=== PATIENT | male | born 1960 ===

== ENCOUNTER 2021-05-02 16:58 | Emergency (ER) | payer SELFPAY ==
--- NOTE | ~2021-05-02 | XR_ITS ---
EXAMINATION: XR CHEST CLINICAL INFORMATION: Cough COMPARISON: None TECHNIQUE: Frontal view of the chest was obtained. FINDINGS: No significant abnormality is noted involving the heart, lungs, mediastinum, bony thorax or soft tissues. XR/XR chest 1V IMPRESSION: Unremarkable examination.
[2021-05-02 17:03] VITALS: BP 195/86; PULSE 86; RESP 18; TEMP 37.7; O2SAT 98; BMI 27.2
[2021-05-02 17:29] LABS: COVID-19 Test Negative (Negative)
--- NOTE | 2021-05-02 20:06 | ED_ITS ---
HPI - URI/Sore Throat General Chief Complaint: Upper Respiratory Symptoms Stated Complaint: chest pain Time Seen by Provider: 05/02/21 20:06 Source: patient Mode of arrival: ambulatory Limitations: no limitations History of Present Illness HPI Narrative: Patient been coughing for last 3 - 4 days congested, sore throat pain when he coughs with mucopurulent phlegm Related Data Previous Rx's Medication Instructions Recorded benzonatate 100 mg capsule 100 mg PO TID PRN #20 cap 05/02/21 (Aspen Nolasco) doxycycline hyclate 100 mg tablet 100 mg PO BID #20 tab 05/02/21 Allergies Allergy/AdvReac Type Severity Reaction Status Date / Time No Known Allergies Allergy Verified 05/02/21 17:05 Review of Systems Review of Systems: Yes all other systems are reviewed and are negative [facility] Past Medical History Medical History Diabetes HTN (hypertension) Surgical History Hx of appendectomy Social History Social History Advance Directives: No Advance Directives Information Provided: No Physical Exam Vital Signs: Vital Signs: Last Vital Signs Temp 99.9 F 05/02/21 17:03 Pulse 86 05/02/21 17:03 Resp 18 05/02/21 17:03 BP 195/86 H 05/02/21 17:03 Pulse Ox 98 05/02/21 17:03 Body Mass Index 27.2 Appearance: Alert. Oriented X3. No acute distress. Dry cough Eyes: No pallor/ icterus ENT: Pharynx normal. Oral Mucosa moist Neck: Normal inspection. Neck supple. CVS: Normal heart rate and rhythm. Pulses normal. Respiratory: No respiratory distress. Equal air entry bilateral, no wheezing/rales/rhonchi Abdomen: Soft and nontender. Bowel sounds are present, no mass palpable, no CVA tenderness Skin: Skin warm and dry. Normal skin color. Normal skin turgor. Extremities: No lower extremity edema. No calf tenderness Neuro: Oriented X 3. MDM - URI/Sore Throat MDM Narrative Medical decision making narrative: Patient COVID negative chest x-ray negative likely bronchitis discharge patient home on doxycycline Lab Data Attestation: I reviewed the patient's lab results. Labs: Lab Results 05/02/21 Range/Units 17:07 COVID-19 (JIMBO) Negative (Negative) COVID-19 Clin Com See Note Discharge Plan Discharge Clinical Impression: Bronchitis Patient Disposition: Home, Self-Care Instructions: Acute Bronchitis (ED) Additional Instructions: Take antibiotic as advised Follow with PCP if not better Prescriptions: New doxycycline hyclate 100 mg tablet 100 mg PO BID Qty: 20 RF: 0 benzonatate [Tessalon Perles] 100 mg capsule 100 mg PO TID PRN (Reason: cough) Qty: 20 RF: 0 Print Language: Telugu
== END 2021-05-02 20:45 | disposition home or self-care (01) ==
PROVIDERS: Emergency Provider Internal Medicine
DX: J40 Bronchitis, not specified as acute or chronic (principal); R07.9 Chest pain, unspecified; R05 Cough; Z79.899 Other long term (current) drug therapy; Z20.822 Contact with and (suspected) exposure to COVID-19
CPT/HCPCS: 36415; 71045; 87635; 99283

== ENCOUNTER 2021-07-06 17:21 | Emergency (ER) | payer SELFPAY ==
--- NOTE | ~2021-07-06 | XR_ITS ---
EXAMINATION: XR TOES, RIGHT CLINICAL INFORMATION: Right great toe pain, redness. Status post injury. COMPARISON: None TECHNIQUE: 3 views of the right toes were obtained. FINDINGS: There is a subtle band of lucency and sclerosis at the base of the great toe which is only seen on the oblique view and raise the possibility of a small nondisplaced fracture. No evidence of osteolysis osteomyelitis. 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 Calcific atherosclerosis is noted. XR/XR toe RT min 2V IMPRESSION: Possible nondisplaced transverse fracture through the great toe proximal phalangeal base, only seen on one image. Associated soft tissue swelling. No evidence of osteomyelitis.
[2021-07-06 18:09] VITALS: BP 206/82; PULSE 77; RESP 16; TEMP 36.5; O2SAT 98; BMI 25.1
--- NOTE | 2021-07-06 18:39 | ED_ITS ---
HPI - Extremity Injury (Lower) General Chief Complaint: Extremity Problem Stated Complaint: foot pain Time Seen by Provider: 07/06/21 18:27 Source: patient Mode of arrival: ambulatory Limitations: no limitations History of Present Illness HPI Narrative: 61-year-old male who is Pakistani-speaking who has a past medical history of hypertension diabetes who does not take any medications for per his own choice per patient presenting to the ED with complaints of right great toe pain/redness for the past 2 days worse today after he banged it on something although he did not feel it therefore he is unsure what he actually being that on. Although due to the redness and the pain he came here for further evaluation and treatment. Reports he does not take his blood sugars and he does not take any medications and this is his own choice. He denies any other symptoms complaints or concerns or injuries at this time. MD complaint: foot injury (Right great toe pain/redness) Onset (ago): day(s) (Two days) Injury: Right: toes (Great toe) Type of Injury: unknown Place: home Severity: moderate Relieving factors: nothing Exacerbating factors: palpation Context: direct blow Associated symptoms: swelling and ambulatory Other symptoms: none Related Data Previous Rx's Medication Instructions Recorded benzonatate 100 mg capsule 100 mg PO TID PRN #20 cap 05/02/21 (Aspen Nolasco) doxycycline hyclate 100 mg tablet 100 mg PO BID #20 tab 05/02/21 alcohol swabs (Alcohol Wipes) 1 pad TOPICAL Q6H #200 ea 07/06/21 blood sugar diagnostic (Freestyle #50 ea 07/06/21 [employer]) blood-glucose meter (Freestyle #1 ea 07/06/21 [employer]) cephalexin 500 mg capsule 500 mg PO Q6H 10 Days #40 cap 07/06/21 doxycycline monohydrate 100 mg 100 mg PO BID 10 Days #20 cap 07/06/21 capsule lancets 28 gauge (FreeStyle #100 ea 07/06/21 Lancets) lisinopril 10 mg tablet 10 mg PO DAILY #30 tab 07/06/21 metformin 500 mg tablet 500 mg PO BID #60 tab 07/06/21 tramadol 50 mg tablet 50 mg PO Q8H PRN #14 tab 07/06/21 Allergies Allergy/AdvReac Type Severity Reaction Status Date / Time No Known Allergies Allergy Verified 05/02/21 17:05 Review of Systems Review of Systems: Constitutional : No Weight loss, No Fever, No Chills, No Night Sweats, No Fatigue, No Malaise ENT/Mouth : No Hearing loss, No Ear Pain, No Nasal Congestion, No Sinus Pain, No Hoarseness, No sore throat, No Rhinorrhea, No Swallowing Difficulty Eyes: No Eye Pain, No Swelling, No Redness, No Foreign Body, No Discharge, No Vision Changes Cardiovascular : No Chest Pain, No SOB, No Dyspnea on Exertion, No Orthopnea, No Edema, No Palpitations Respiratory : No Cough, No Sputum, No Wheezing, No Smoke Exposure, No Dyspnea Gastrointestinal : No Nausea, No Vomiting, No Diarrhea, No Constipation, No abdominal Pain, No Hematochezia, No Melena Genitourinary : no irregular bleeding, No Dysuria, No Urinary Frequency, No Hematuria, No Urinary Incontinence, No Urgency, No Flank Pain, No Urinary Flow Changes, No Hesitancy Musculoskeletal : + joint pain/surrounding erythema, No Myalgias, No Joint Swelling Skin : No Skin Lesions, No rash Neuro : No Weakness, No Numbness, No Paresthesias, No Loss of Consciousness, No Dizziness, No Headache Psych : No Anxiety/Panic, No Depression, No SI/HI/AH/VH, No Social Issues, Heme/Lymph: No Bruising, No Bleeding,No Lymphadenopathy Endocrine : No Polyuria, No Polydipsia, No Temperature Intolerance Yes all other systems are reviewed and are negative PMFSH Past Medical History Attestation statement: The following information was validated with the patient. Medical History Diabetes HTN (hypertension) Surgical History Hx of appendectomy Social History Social History Advance Directives: No Advance Directives Information Provided: Yes Physical Exam Vital Signs: Vital Signs: Last Vital Signs Temp 97.7 F 07/06/21 18:09 Pulse 71 07/06/21 19:58 Resp 16 07/06/21 18:09 BP 191/89 H 07/06/21 19:58 Pulse Ox 98 07/06/21 18:09 Body Mass Index 25.1 vital signs have been reviewed as normal and appeared to be correct. Blood pressure hypertensive 206/82 Heart rate normal. Respiration rate normal. Temperature normal. Oxygen saturation normal. Appearance: Alert. Oriented X3. No acute distress. Head: Normal external exam. Normocephalic. Atraumatic. Eyes: PERRLA. EOMI. Conjunctiva and sclera normal. Eyelids normal. ENT: Pharynx normal. Uvula midline. Moist mucous membranes. Neck: Normal inspection. Neck supple. FROM. CVS: Normal heart rate and rhythm. Respiratory: No respiratory distress. Painless inspiration. Skin: Skin warm and dry. Normal skin color. Normal skin turgor. No rashes/lesions/lacerations noted. Extremities: To right great toe at the distal aspect surrounding and the nail patient has moderate tenderness to palpation with surrounding erythema/warmth to touch consistent with cellulitic infection. No purulent drainage/streaking/induration/fluctuance noted on my exam at this time. No calf tenderness is noted. No lower extremity edema. Otherwise all other Extremities exhibit normal range of motion and nontender. Neuro: Oriented X 3. No motor deficit. No sensory deficit. Reflexes normal. Normal steady gait. No focal neuro deficits noted. Vascular: + radial pulses/+ 2 distal pedal pulses/+2 dorsalis pedis b/l. Normal cap refill. No cyanosis noted to upper extremity nails and lower extremity toes nails. Course Course Course Narrative: 18:43 - 61-year-old male who is Pakistani-speaking who has a past medical history of hypertension diabetes who does not take any medications for per his own choice per patient presenting to the ED with complaints of right great toe pain/redness for the past 2 days worse today after he banged it on something although he did not feel it therefore he is unsure what he actually being that on. Although due to the redness and the pain he came here for further evaluation and treatment. Reports he does not take his blood sugars and he does not take any medications and this is his own choice. He denies any other symptoms complaints or concerns or injuries at this time. On exam patient noted to have a cellulitic infection. No abscess noted at this time. No streaking. Will obtain an x-ray and a POC if POC is elevated will need to obtain basic labs and will start the patient on metformin and lisinopril due to patient's blood pressure is also elevated and he is not taking any medications at this time per his own choice will try to convince in that it is very important to take these medications. Otherwise patient denies any cardiac- related complaints or any other symptoms complaints or concerns at this time. Will re-evaluate. Reevaluation(s) Reevaluation #1: - labs returned patient's white blood cell count 4000. - Patient mild anemia with a H&H of 12.4/36.0 although he denies any black or bloody stools. - anion gap 9. - BUN 6. - POC 244 - otherwise all other labs are within normal limits. - at this time will start the patient on 500 mg of metformin and 10 mg of lisinopril for his diabetes and high blood pressure that is uncontrolled at this time. - still waiting right great toe x-ray will also start on antibiotics for cellulitic infection. 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 Time: 19:34 Reevaluation #2: - x-ray of right great toe revealed no evidence of osteomyelitis although possible nondisplaced transverse fracture through the great toe proximal phalangeal base only seen on 1 image with associated soft tissue swelling otherwise no other acute processes. - therefore I placed the patient in a postop shoe. Will treat symptomatic and refer to ortho. I also sent the patient home with lisinopril 10 mg daily and metformin 500 mg daily for his uncontrolled diabetes and hypertension. I also sent a glucose monitor/strips alcohol wipes and glucose injections so he can check his glucose daily. I also instructed him to follow-up with a primary care provider I provided him a list with multiple primary providers and to return if any new or worsening symptoms. Patient understands agrees with this plan. Time: 20:01 MDM - Extremity Injury (Lower) Medical Records Attestation: I reviewed the patient's medical records. Lab Data Attestation: I reviewed the patient's lab results. Result diagrams: 07/06/21 18:51 07/06/21 18:51 Labs: Lab Results 07/06/21 07/06/21 07/06/21 Range/Units 18:42 18:51 18:51 WBC 4.7 L (4.8-10.8) X10*3/uL RBC 4.38 L (4.60-5.80) X10*6/uL Hgb 12.4 L (14.0-18.0) g/dl Hct 36.0 L (42-52) % MCV 82.2 (80-98) fL MCH 28.3 (27.0-33.0) pg MCHC 34.4 (31.0-36.0) g/dl RDW 13.1 (11.0-16.0) % Plt Count 180 (160-400) X10*3/uL MPV 9.9 (9.4-12.4) fL Immature Gran % (Auto) 0.2 (0.0-0.4) % Neut % (Auto) 55.2 (45-73) % Lymph % (Auto) 27.9 (20-40) % [place] % (Auto) 14.4 H (2-11) % Eos % (Auto) 2.3 (0-4) % Baso % (Auto) 0.0 (0-2) % Lymph # (Auto) 1.3 (1.2-4.9) X10*3/uL [place] # (Auto) 0.7 (0.1-1.2) X10*3/uL Eos # (Auto) 0.1 (0.0-0.4) X10*3/uL Baso # (Auto) 0.0 (0.0-0.2) X10*3/uL Abs Immat Gran (auto) 0.01 (0.00-0.03) X10*3/uL Absolute Neuts (auto) 2.6 (2.0-8.3) X10*3/uL Absolute Nucleated RBC 0.000 (0.0-0.012) X10*3/uL Nucleated RBC % (auto) 0.0 (0.0-0.2) /100WBC Sodium 140 (135-145) mmol/L Potassium 4.2 (3.3-5.1) mmol/L Chloride 106 (96-108) mmol/L Carbon Dioxide 29 (22-29) mmol/L Anion Gap 9 L (12-20) BUN 6 L (9-16) mg/dL Creatinine 1.22 (0.5-1.4) mg/dL Estim Creat Clear Calc 50.5 Estimated GFR > 60 POC Glucose 244 H (60-115) mg/dL Random Glucose 265 H (60-115) mg/dL Calcium 9.0 (8.4-10.2) mg/dL Magnesium 1.9 (1.6-2.6) mg/dL Total Bilirubin 0.5 (0.0-1.0) mg/dL AST 14 (5-37) U/L ALT 15 (0-40) U/L Alkaline Phosphatase 85 (39-117) U/L Total Protein 6.9 (6.5-8.0) g/dL Albumin 4.0 (3.5-5.0) g/dL Imaging Data Right great toe x-ray: Attestation: I personally reviewed and interpreted this imaging study as follows: Radiologist's impression: FINDINGS: There is a subtle band of lucency and sclerosis at the base of the great toe which is only seen on the oblique view and raise the possibility of a small nondisplaced fracture. No evidence of osteolysis osteomyelitis. 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 Calcific atherosclerosis is noted. XR/XR toe RT min 2V IMPRESSION: Possible nondisplaced transverse fracture through the great toe proximal phalangeal base, only seen on one image. Associated soft tissue swelling. No evidence of osteomyelitis. Procedures Orthopedic Splinting/Casting Injury #1: Side: right Lower Extremity Injury Location: toe Lower Extremity Immobilizer: post-op shoe Critical Care Time Critical Care Time Critical Care Time: Yes Total Critical Care Time: 60 Attestation: I personally attest to this time spent taking care of the patient Discharge Plan Discharge Clinical Impression: History of uncontrolled hypertension, Uncontrolled diabetes mellitus, Cellulitis, Acute hyperglycemia, Closed fracture of right great toe Patient Disposition: Home, Self-Care Instructions: Toe Fracture (ED), Cellulitis (ED), Heart Healthy Diet (ED), Hypertension (ED), How to Check your Blood Sugar (ED), Type 2 Diabetes Management for Adults (ED) Prescriptions: New cephalexin 500 mg capsule 500 mg PO Q6H 10 Days Qty: 40 RF: 0 doxycycline monohydrate 100 mg capsule 100 mg PO BID 10 Days Qty: 20 RF: 0 lisinopril 10 mg tablet 10 mg PO DAILY Qty: 30 RF: 1 metformin 500 mg tablet 500 mg PO BID Qty: 60 RF: 1 (DME) blood-glucose meter [Freestyle [employer]] Misc See Rx Instructions .Route Qty: 1 RF: 2 (DME) Freestyle [employer] Strip See Rx Instructions .Route Qty: 50 RF: 2 (DME) lancets [FreeStyle Lancets] 28 gauge misc See Rx Instructions .Route Qty: 100 RF: 2 alcohol swabs [Alcohol Wipes] Pads, Medicated 1 pad topical Q6H Qty: 200 RF: 1 tramadol 50 mg tablet 50 mg PO Q8H PRN (Reason: pain) Qty: 14 RF: 0 No Action doxycycline hyclate 100 mg tablet 100 mg PO BID Qty: 20 RF: 0 benzonatate [Tessalon Perles] 100 mg capsule 100 mg PO TID PRN (Reason: cough) Qty: 20 RF: 0 Referrals: Marco Freeman MD [Physician] - 2 days (Call tomorrow to make a follow-up appointment within 1-2 weeks) Physician,Forrest Lang [Primary Care Provider] - 2 days (your pcp) Print Language: Pakistani
[2021-07-06 18:48] LABS: Glucose, Whole Blood 244 mg/dL (60-115)
[2021-07-06 18:57] LABS: Eosinophils Absolute Auto 0.1 X10*3/uL (0.0-0.4); Eosinophils Percent Auto 2.3 % (0-4); Hemoglobin 12.4 g/dl (14.0-18.0); Imm Gran Abs Auto 0.01 X10*3/uL (0.00-0.03); Imm Gran Pct Auto 0.2 % (0.0-0.4); Lymphocytes Absolute Auto 1.3 X10*3/uL (1.2-4.9); Lymphocytes Percent Auto 27.9 % (20-40); MANUAL DIFF FLAG NO; Mean Corpuscular HGB Conc 34.4 g/dl (31.0-36.0); Mean Corpuscular Hemoglobin 28.3 pg (27.0-33.0); Mean Corpuscular Volume 82.2 fL (80-98); Mean Platelet Volume 9.9 fL (9.4-12.4); Monocytes Absolute Auto 0.7 X10*3/uL (0.1-1.2); Monocytes Percent Auto 14.4 % (2-11); Neutrophils Absolute Auto 2.6 X10*3/uL (2.0-8.3); Neutrophils Percent Auto 55.2 % (45-73); Platelet Count 180 X10*3/uL (160-400); Red Blood Count 4.38 X10*6/uL (4.60-5.80); Red Cell Distribution Width 13.1 % (11.0-16.0); White Blood Count 4.7 X10*3/uL (4.8-10.8)
[2021-07-06 19:20] LABS: Alanine Aminotransferase 15 U/L (0-40); Alkaline Phosphatase 85 U/L (39-117); Anion Gap 9 (12-20); Aspartate Amino Transferase 14 U/L (5-37); Bilirubin Total 0.5 mg/dL (0.0-1.0); Blood Urea Nitrogen 6 mg/dL (9-16); Carbon Dioxide 29 mmol/L (22-29); Chloride 106 mmol/L (96-108); Creatinine Clr Calc Pharmacy 50.5; Estimated Glomerular Filt Rate > 60; Glucose Random 265 mg/dL (60-115); Magnesium 1.9 mg/dL (1.6-2.6); Potassium 4.2 mmol/L (3.3-5.1); Sodium 140 mmol/L (135-145); Total Protein 6.9 g/dL (6.5-8.0)
[2021-07-06 19:57] VITALS: BP 191/89; PULSE 71
[2021-07-06 19:58] VITALS: BP 191/89; PULSE 71
[2021-07-06] MEDS: lisinopriL 10 MG TABLET PO (19:58)
[2021-07-06] MEDS: metFORMIN HCl 500 MG TABLET PO (19:58)
[2021-07-06] MEDS: cephALEXin 500 MG CAPSULE PO (19:58)
== END 2021-07-06 20:25 | disposition home or self-care (01) ==
PROVIDERS: Physician Assistant Medical; Emergency Provider Internal Medicine
DX: L03.115 Cellulitis of right lower limb (principal); E11.65 Type 2 diabetes mellitus with hyperglycemia; I10 Essential (primary) hypertension; S92.414A Nondisplaced fracture of proximal phalanx of right great toe, initial encounter for closed fracture; X58.XXXA Exposure to other specified factors, initial encounter; Y93.9 Activity, unspecified; Y92.9 Unspecified place or not applicable; Y99.9 Unspecified external cause status
CPT/HCPCS: 36415; 73660; 80053; 82947; 83735; 85025; 99283; 99284; 99291

== ENCOUNTER 2021-12-06 11:32 | Outpatient (REF) | payer SELFPAY ==
[2021-12-06 12:26] LABS: COVID-19 Test Negative (Negative); IDNOW Serial# 08D9AD1C
== END 2021-12-06 11:33 | disposition home or self-care (01) ==
LOC: HO.LAB 11:32
PROVIDERS: Visit Provider Internal Medicine
DX: Z20.822 Contact with and (suspected) exposure to COVID-19 (principal)
CPT/HCPCS: 87635; C9803

== ENCOUNTER 2022-01-22 21:13 | Emergency (ER) | payer SELFPAY ==
--- NOTE | ~2022-01-22 | XR_ITS ---
EXAMINATION: XR CHEST CLINICAL INFORMATION: Dyspnea COMPARISON: Chest radiograph 05/02/2021 TECHNIQUE: Frontal view of the chest was obtained. FINDINGS: There is mild hypoexpansion of lungs. The exam is otherwise unremarkable with no significant abnormality is noted involving the heart, lungs, mediastinum, bony thorax or soft tissues. XR/XR chest 1V IMPRESSION: No acute intrathoracic disease
--- NOTE | 2022-01-22 21:58 | ECG_ITS ---
Test Reason : cp Blood Pressure : / mmHG Vent. Rate : 086 BPM Atrial Rate : 086 BPM P-R Int : 142 ms QRS Dur : 084 ms QT Int : 352 ms P-R-T Axes : 066 -25 053 degrees QTc Int : 421 ms Normal sinus rhythm Minimal voltage criteria for LVH, may be normal variant ( R in aVL ) Borderline ECG No previous ECGs available Referred By: Generic ED Physician Electronically Signed By:WEN HENRIQUEZ
[2022-01-22 22:13] VITALS: BP 145/79; PULSE 87; RESP 19; TEMP 36.8; O2SAT 95; BMI 24.9
[2022-01-22 22:50] LABS: MANUAL DIFF FLAG NO
[2022-01-22 22:57] LABS: Hemoglobin 12.8 g/dl (14.0-18.0); PLT CLUMP 1; Red Cell Distribution Width 13.2 % (11.0-16.0); SCAN SMEAR FLAG 1
[2022-01-22 22:59] LABS: Basophils Percent Auto 0.2 % (0-2); Eosinophils Percent Auto 0.2 % (0-4); Hematocrit 37.5 % (42.0-52.0); Imm Gran Abs Auto 0.02 X10*3/uL (0.00-0.03); Imm Gran Pct Auto 0.3 % (0.0-0.4); Lymphocytes Absolute Auto 0.4 X10*3/uL (1.2-4.9); Lymphocytes Percent Auto 6.1 % (20-40); Mean Corpuscular HGB Conc 34.1 g/dl (31.0-36.0); Mean Corpuscular Hemoglobin 27.5 pg (27.0-33.0); Mean Corpuscular Volume 80.5 fL (80.0-98.0); Mean Platelet Volume 11.4 fL (9.4-12.4); Monocytes Absolute Auto 0.9 X10*3/uL (0.1-1.2); Monocytes Percent Auto 14.3 % (2-11); Neutrophils Absolute Auto 5.1 x10*3/uL (2.0-8.3); Neutrophils Percent Auto 78.9 % (45-73); Red Blood Count 4.66 X10*6/uL (4.60-5.80)
[2022-01-22 23:00] LABS: Platelet Count 121 X10*3/uL (160-400); White Blood Count 6.5 X10*3/uL (4.8-10.8)
[2022-01-22 23:00] LABS: COVID-19 Test Negative (Negative)
[2022-01-22 23:05] LABS: IDNOW Serial# 55D5AD1C; Influenza A Positive (Negative); Influenza B2 Negative (Negative)
[2022-01-22 23:13] LABS: Anion Gap 13 (12-20); Blood Urea Nitrogen 22 mg/dL (9-16); Calcium 9.3 mg/dL (8.4-10.2); Carbon Dioxide 25 mmol/L (22-29); Chloride 104 mmol/L (96-108); Creatinine Clr Calc Pharmacy 32.5; Estimated Glomerular Filt Rate 35; Glucose Random 251 mg/dL (60-115); Potassium 4.4 mmol/L (3.3-5.1); Sodium 138 mmol/L (135-145)
[2022-01-22 23:21] LABS: Troponin-I High Sensitivity 19.4 ng/L (<3.5-35.0)
--- NOTE | 2022-01-23 03:16 | ED_ITS ---
HPI - Chest Pain General Chief Complaint: Chest Pain Stated Complaint: bodyaches Time Seen by Provider: 01/23/22 02:48 Source: patient and parts interpreter Mode of arrival: ambulatory History of Present Illness HPI narrative: 61-year-old male with history of diabetes presents with complaints for 5 days of body aches, chills, chest pain, abdominal pain, vomiting. Related Data Previous Rx's Medication Instructions Recorded benzonatate 100 mg capsule 100 mg PO TID PRN #20 cap 05/02/21 (Aspen Nolasco) doxycycline hyclate 100 mg tablet 100 mg PO BID #20 tab 05/02/21 alcohol swabs (Alcohol Wipes) 1 pad TOPICAL Q6H #200 ea 07/06/21 blood sugar diagnostic (Freestyle #50 ea 07/06/21 [employer]) blood-glucose meter (Freestyle #1 ea 07/06/21 [employer]) cephalexin 500 mg capsule 500 mg PO Q6H 10 Days #40 cap 07/06/21 doxycycline monohydrate 100 mg 100 mg PO BID 10 Days #20 cap 07/06/21 capsule lancets 28 gauge (FreeStyle #100 ea 07/06/21 Lancets) lisinopril 10 mg tablet 10 mg PO DAILY #30 tab 07/06/21 metformin 500 mg tablet 500 mg PO BID #60 tab 07/06/21 tramadol 50 mg tablet 50 mg PO Q8H PRN #14 tab 07/06/21 ondansetron 4 mg disintegrating 4 mg PO Q6H PRN #7 tab 01/23/22 tablet Allergies Allergy/AdvReac Type Severity Reaction Status Date / Time No Known Allergies Allergy Verified 01/22/22 22:16 Review of Systems Review of Systems: Pertinent positives and negatives as stated in HPI 10 point review of systems is otherwise negative. [facility] Past Medical History Source: nursing notes reviewed Medical History Diabetes HTN (hypertension) Surgical History Hx of appendectomy Social History Social History Advance Directives: No Physical Exam Vital Signs: Vital Signs: Last Vital Signs Temp 98.4 F 01/23/22 05:16 Pulse 70 01/23/22 05:16 Resp 12 01/23/22 05:16 BP 148/73 H 01/23/22 05:16 Pulse Ox 94 01/23/22 05:16 BMI result Body Mass Index 24.9 VITAL SIGNS: Reviewed. GENERAL: Well developed, well nourished, in no acute distress. HEAD: Normocephalic/atraumatic EYES: PERRLA, EOMI EARS: Ext canals without abnormality OROPHARYNX: no oral lesions noted, posterior pharynx clear LUNGS: Normal breath sounds. No adventitious sounds or accessory muscle use. S pO2<95> CARDIOVASCULAR: Regular rate and rhythm without noted murmurs ABDOMEN: Soft, non-tender, non-distended with bowel sounds. MUSCULOSKELETAL: No tenderness, deformities, or effusions noted on gross inspection. EXTREMITIES: No cyanosis, clubbing or edema. SKIN: Inspection of the skin reveals no rashes NEUROLOGIC: Alert and oriented x 4. Strength and sensation to light touch were grossly intact x 4. Course Course Course Narrative: 61-year-old male with history and clinical presentation after review of all investigations consistent with viral syndrome, influenza A positive, dehydration. Although there are no acute EKG changes troponin was noted to be detectable in will be repeated. On re-evaluation after patient received combination analgesics, antiemetic, and IV fluids he reports he is feeling much better. Serial troponins although detectable are not elevated, patient has no chest pain currently, and likely reflect patient's current dehydrated state is there are no acute changes on EKG. In addition, the mild ALLYN noted is likely secondary to patient's dehydrated state. MDM - Chest Pain Lab Data Result diagrams: 01/22/22 22:43 01/22/22 22:43 Labs: Lab Results 01/22/22 01/22/22 01/22/22 Range/Units 22:00 22:00 22:43 WBC 6.5 (4.8-10.8) X10*3/uL RBC 4.66 (4.60-5.80) X10*6/uL Hgb 12.8 L (14.0-18.0) g/dl Hct 37.5 L (42.0-52.0) % MCV 80.5 (80.0-98.0) fL MCH 27.5 (27.0-33.0) pg MCHC 34.1 (31.0-36.0) g/dl RDW 13.2 (11.0-16.0) % Plt Count 121 L (160-400) X10*3/uL MPV 11.4 (9.4-12.4) fL Immature Gran % (Auto) 0.3 (0.0-0.4) % Neut % (Auto) 78.9 H (45-73) % Lymph % (Auto) 6.1 L (20-40) % [place] % (Auto) 14.3 H (2-11) % Eos % (Auto) 0.2 (0-4) % Baso % (Auto) 0.2 (0-2) % Lymph # (Auto) 0.4 L (1.2-4.9) X10*3/uL [place] # (Auto) 0.9 (0.1-1.2) X10*3/uL Eos # (Auto) 0.0 (0.0-0.4) X10*3/uL Baso # (Auto) 0.0 (0.0-0.2) X10*3/uL Abs Immat Gran (auto) 0.02 (0.00-0.03) X10*3/uL Absolute Neuts (auto) 5.1 (2.0-8.3) x10*3/uL Absolute Nucleated RBC 0.000 (0.0-0.012) X10*3/uL Nucleated RBC % (auto) 0.0 (0.0-0.2) /100WBC Sodium (135-145) mmol/L Potassium (3.3-5.1) mmol/L Chloride (96-108) mmol/L Carbon Dioxide (22-29) mmol/L Anion Gap (12-20) BUN (9-16) mg/dL Creatinine (0.5-1.4) mg/dL Estim Creat Clear Calc Estimated GFR Random Glucose (60-115) mg/dL Calcium (8.4-10.2) mg/dL Troponin I High Sens (<3.5-35.0) ng/L COVID-19 (JIMBO) Negative (Negative) COVID-19 Clin Com See Note Influenza Type A (CELESTINO) Positive A (Negative) Influenza Type B (CELESTINO) Negative (Negative) Influenza A & B Note See Note 01/22/22 01/22/22 01/23/22 Range/Units 22:43 22:43 02:53 WBC (4.8-10.8) X10*3/uL RBC (4.60-5.80) X10*6/uL Hgb (14.0-18.0) g/dl Hct (42.0-52.0) % MCV (80.0-98.0) fL MCH (27.0-33.0) pg MCHC (31.0-36.0) g/dl RDW (11.0-16.0) % Plt Count (160-400) X10*3/uL MPV (9.4-12.4) fL Immature Gran % (Auto) (0.0-0.4) % Neut % (Auto) (45-73) % Lymph % (Auto) (20-40) % [place] % (Auto) (2-11) % Eos % (Auto) (0-4) % Baso % (Auto) (0-2) % Lymph # (Auto) (1.2-4.9) X10*3/uL [place] # (Auto) (0.1-1.2) X10*3/uL Eos # (Auto) (0.0-0.4) X10*3/uL Baso # (Auto) (0.0-0.2) X10*3/uL Abs Immat Gran (auto) (0.00-0.03) X10*3/uL Absolute Neuts (auto) (2.0-8.3) x10*3/uL Absolute Nucleated RBC (0.0-0.012) X10*3/uL Nucleated RBC % (auto) (0.0-0.2) /100WBC Sodium 138 (135-145) mmol/L Potassium 4.4 (3.3-5.1) mmol/L Chloride 104 (96-108) mmol/L Carbon Dioxide 25 (22-29) mmol/L Anion Gap 13 (12-20) BUN 22 H (9-16) mg/dL Creatinine 1.97 H (0.5-1.4) mg/dL Estim Creat Clear Calc 32.5 Estimated GFR 35 Random Glucose 251 H (60-115) mg/dL Calcium 9.3 (8.4-10.2) mg/dL Troponin I High Sens 19.4 22.5 (<3.5-35.0) ng/L COVID-19 (JIMBO) (Negative) COVID-19 Clin Com Influenza Type A (CELESTINO) (Negative) Influenza Type B (CELESTINO) (Negative) Influenza A & B Note 01/23/22 Range/Units 05:13 WBC (4.8-10.8) X10*3/uL RBC (4.60-5.80) X10*6/uL Hgb (14.0-18.0) g/dl Hct (42.0-52.0) % MCV (80.0-98.0) fL MCH (27.0-33.0) pg MCHC (31.0-36.0) g/dl RDW (11.0-16.0) % Plt Count (160-400) X10*3/uL MPV (9.4-12.4) fL Immature Gran % (Auto) (0.0-0.4) % Neut % (Auto) (45-73) % Lymph % (Auto) (20-40) % [place] % (Auto) (2-11) % Eos % (Auto) (0-4) % Baso % (Auto) (0-2) % Lymph # (Auto) (1.2-4.9) X10*3/uL [place] # (Auto) (0.1-1.2) X10*3/uL Eos # (Auto) (0.0-0.4) X10*3/uL Baso # (Auto) (0.0-0.2) X10*3/uL Abs Immat Gran (auto) (0.00-0.03) X10*3/uL Absolute Neuts (auto) (2.0-8.3) x10*3/uL Absolute Nucleated RBC (0.0-0.012) X10*3/uL Nucleated RBC % (auto) (0.0-0.2) /100WBC Sodium (135-145) mmol/L Potassium (3.3-5.1) mmol/L Chloride (96-108) mmol/L Carbon Dioxide (22-29) mmol/L Anion Gap (12-20) BUN (9-16) mg/dL Creatinine (0.5-1.4) mg/dL Estim Creat Clear Calc Estimated GFR Random Glucose (60-115) mg/dL Calcium (8.4-10.2) mg/dL Troponin I High Sens 24.4 (<3.5-35.0) ng/L COVID-19 (JIMBO) (Negative) COVID-19 Clin Com Influenza Type A (CELESTINO) (Negative) Influenza Type B (CELESTINO) (Negative) Influenza A & B Note ECG Data ECG #1: Attestation: I personally reviewed and interpreted this ECG as follows: Prior ECG tracings: not available for review Interpretation: NSR, HR-86, no STEMI, ME/QRS/QTC are within normal limits. Discharge Plan Discharge Clinical Impression: Viral syndrome, Diabetes, HTN (hypertension), Influenza A Patient Disposition: Home, Self-Care Instructions: Influenza (ED), Viral Syndrome (ED), Droplet Precautions (ED) Additional Instructions: 1. Reanudar todos los medicamentos recetados. 2. Aumentar la hidrataci?n fluida, especialmente con agua. Mientras tanto, le granados recetado danny receta para controlar las n?useas. 3. Lon un seguimiento con tatum proveedor de atenci?n primaria el lunes por la ma?yana para danny reevaluaci?n. Regrese a la frederic de emergencias si los s?ntomas empeoran. Prescriptions: New ondansetron 4 mg tablet,disintegrating 4 mg PO Q6H PRN (Reason: nausea and vomiting) Qty: 7 0RF No Action doxycycline hyclate 100 mg tablet 100 mg PO BID Qty: 20 0RF benzonatate [Tessalon Perles] 100 mg capsule 100 mg PO TID PRN (Reason: cough) Qty: 20 0RF cephalexin 500 mg capsule 500 mg PO Q6H 10 Days Qty: 40 0RF doxycycline monohydrate 100 mg capsule 100 mg PO BID 10 Days Qty: 20 0RF lisinopril 10 mg tablet 10 mg PO DAILY Qty: 30 1RF metformin 500 mg tablet 500 mg PO BID Qty: 60 1RF (DME) blood-glucose meter [Freestyle [employer]] Misc See Rx Instructions .Route Qty: 1 2RF Rx Instructions: As directed (DME) Freestyle [employer] Strip See Rx Instructions .Route Qty: 50 2RF Rx Instructions: As directed (DME) lancets [FreeStyle Lancets] 28 gauge misc See Rx Instructions .Route Qty: 100 2RF Rx Instructions: As directed alcohol swabs [Alcohol Wipes] Pads, Medicated 1 pad topical Q6H Qty: 200 1RF tramadol 50 mg tablet 50 mg PO Q8H PRN (Reason: pain) Qty: 14 0RF Rx Instructions: May partially fill upon patient request Print Language: Montenegrin
[2022-01-23] MEDS: 0.9 % Sodium Chloride 1,000 ML 999 ML IV (03:18)
[2022-01-23 03:21] LABS: Troponin-I High Sensitivity 22.5 ng/L (<3.5-35.0)
[2022-01-23] MEDS: ondansetron HCL 4 MG/2 ML VIAL IVPUSH (03:26)
[2022-01-23] MEDS: Ketorolac Tromethamine 30 MG/ML VIAL 15 MG IVPUSH (03:26)
[2022-01-23] MEDS: Acetaminophen 325 MG TABLET 975 MG PO (03:41)
[2022-01-23 05:16] VITALS: BP 148/73; PULSE 70; RESP 12; TEMP 36.9; O2SAT 94
[2022-01-23 05:40] LABS: Troponin-I High Sensitivity 24.4 ng/L (<3.5-35.0)
== END 2022-01-23 06:37 | disposition home or self-care (01) ==
PROVIDERS: Emergency Provider Student in an Organized Health Care Education/Training Program
DX: J10.1 Influenza due to other identified influenza virus with other respiratory manifestations (principal); B34.9 Viral infection, unspecified; N17.9 Acute kidney failure, unspecified; E11.9 Type 2 diabetes mellitus without complications; I10 Essential (primary) hypertension; Z20.822 Contact with and (suspected) exposure to COVID-19
CPT/HCPCS: 36415; 71045; 80048; 84484; 85025; 87502; 87635; 93005; 96361; 96374; 96375; 99284; J1885; J2405

== ENCOUNTER 2023-11-24 09:29 | Outpatient (RCR) | payer MEDICAID, SELFPAY | END 2024-01-30 09:04 | disposition home or self-care (01) | LOC: HO.PT 09:29 | PROVIDERS: PCP Internal Medicine; Visit Provider Internal Medicine | DX: R26.81 Unsteadiness on feet (principal) ==

== ENCOUNTER 2023-12-19 15:05 | Inpatient (IN) | payer MEDICAID, SELFPAY ==
--- NOTE | ~2023-12-19 | XR_ITS ---
EXAMINATION: XR CHEST CLINICAL INFORMATION: Chest pain COMPARISON: Previous chest x-ray January 2022 TECHNIQUE: Frontal view of the chest was obtained. FINDINGS: The cardiac and mediastinal contours are stable. The lungs are clear. No pleural effusion or pneumothorax. Degenerative changes of the spine. XR/XR chest 1V IMPRESSION: No evidence for acute disease in the chest.
[2023-12-19 15:21] VITALS: BP 134/88; BP 156/82; PULSE 72; PULSE 79; RESP 15; TEMP 36.7; O2SAT 98; O2SAT 99; BMI 27.3
--- NOTE | 2023-12-19 15:21 | ECG_ITS ---
Test Reason : CHEST PAIN Blood Pressure : / mmHG Vent. Rate : 070 BPM Atrial Rate : 070 BPM P-R Int : 142 ms QRS Dur : 082 ms QT Int : 360 ms P-R-T Axes : 061 -23 022 degrees QTc Int : 388 ms Normal sinus rhythm Moderate voltage criteria for LVH, may be normal variant ( R in aVL , [place] product ) Septal infarct , age undetermined Abnormal ECG When compared with ECG of 23-JAN-2022 00:04, Loss of R wave in lead V3 Referred By: Generic ED Physician Electronically Signed By:RON POWELL MD
[2023-12-19 15:24] LABS: Glucose, Whole Blood 364 mg/dL (60-115)
--- NOTE | 2023-12-19 15:41 | ED.CHESTPAIN ---
HPI - Chest Pain General Chief Complaint: Chest Pain Stated Complaint: FROM PCP OFF,HIGH BP 222/107,CP PER EMS Time Seen by Provider: 12/19/23 15:35 Source: patient and EMS Mode of arrival: EMS Limitations: language barrier History of Present Illness HPI narrative: Patient sent in from PCP office for chest pain described as a band around his chest. Patient denies taking his metformin and HTN medication today complaint: chest pain Onset (ago): hour(s) Timing of current episode: constant Onset: during rest Pain location: other (across chest) Risk Factors Coronary artery disease risk factors: diabetes, hyperlipidemia and hypertension Related Data Previous Rx's ?Medication ?Instructions ?Recorded benzonatate 100 mg capsule 100 mg PO TID PRN cough #20 caps 05/02/21 (Aspen Nolasco) doxycycline hyclate 100 mg tablet 100 mg PO BID #20 tabs 05/02/21 alcohol swabs (Alcohol Wipes) 1 pad topical Q6H #200 ea 07/06/21 blood sugar diagnostic (Freestyle #50 ea 07/06/21 [employer] strips) blood-glucose meter (Freestyle #1 ea 07/06/21 [employer] meter) cephalexin 500 mg capsule 500 mg PO Q6H 10 days #40 caps 07/06/21 doxycycline monohydrate 100 mg 100 mg PO BID 10 days #20 caps 07/06/21 capsule lancets 28 gauge (FreeStyle #100 ea 07/06/21 [employer]ets) lisinopril 10 mg tablet 10 mg PO DAILY Uncontrolled 07/06/21 hypertension #30 tabs metformin 500 mg tablet 500 mg PO BID Uncontrolled 07/06/21 diabetes #60 tabs tramadol 50 mg tablet 50 mg PO Q8H PRN pain #14 tabs 07/06/21 ondansetron 4 mg disintegrating 4 mg PO Q6H PRN nausea and 01/23/22 tablet vomiting #7 tabs Allergies Allergy/AdvReac Type Severity Reaction Status Date / Time No Known Allergies Allergy Verified 12/19/23 15:25 Review of Systems Review of Systems: Yes all other systems are reviewed and are negative Neurologic: Denies Sensory deficit (Neuro) [facility] Past Medical History Medical History HTN (hypertension) Diabetes Surgical History Hx of appendectomy Social History Social History Smoked in Last 30 Days: No Use of substances other than those prescribed or required for medical reasons: No Advance Directives: No Advance Directives Information Provided: No Physical Exam Vital Signs: Vital Signs: Last Vital Signs Temp 98.1 F 12/19/23 15:21 Pulse 62 12/19/23 16:11 Resp 15 12/19/23 16:11 BP 165/78 H 12/19/23 16:11 Pulse Ox 99 12/19/23 16:11 O2 Del Method Room Air 12/19/23 16:11 BMI result Body Mass Index 27.3 Const: General: healthy appearing Nutritional Appearance: average body habitus Orientation/consciousness: oriented to person and patient oriented x3 Limitations: no limitations HEENT: Head: Yes normal to inspection Ears: external ears normal General nose exam: Normal external nose present Mouth: Normal oral and palatal mucosa present and oropharynx normal Throat: Yes posterior oropharynx normal Eyes: General: appearance normal, both eyes and all related structures Neck: Other: supple Neck: Yes normal visual inspection Chest: Chest palpation & inspection: normal inspection of the chest Resp: Auscultation: clear to auscultation bilaterally Cardio: Jugular venous distension: no JVD Rate: regular rate Rhythm: regular rhythm Heart sounds: S1 normal heart sound present and S2 normal heart sound present GI: Inspection: Yes normal to inspection Palpation (GI): Soft to palpation, nontender and No hepatosplenomegaly present Auscultation: normal bowel sounds : General: Yes no CVA tenderness Back/Spine/Pelvis: Back: no CVA tenderness Skin: General skin exam: no rashes or lesions noted Neuro: General: oriented to person and patient oriented x3 Cranial nerves: Yes CN's II-XII intact bilaterally Motor exam (neuro): 5/5 motor strength present throughout Sensory Exam: No Sensory deficit (Neuro) Extrem: General: Yes normal to inspection Psych: Appearance: grossly normal Course Reevaluation(s) Reevaluation #1: ekg unchanged from old will sign out to Dr. Wu for final disposition Time: 16:11 Medications Administered Discontinued Medications Generic Name Dose Route Start Last Admin Trade Name Freq PRN Reason Stop Dose Admin Insulin Human Lispro 5 unit 12/19/23 16:07 12/19/23 16:12 Insulin Lispro 100 Unit/Ml 3 Ml Vial SUBCUT 12/19/23 16:08 5 unit ONCE ONE Administration Metformin HCl 1,000 mg 12/19/23 15:40 12/19/23 15:56 Metformin Hcl 1,000 Mg Tablet PO 12/19/23 15:41 1,000 mg ONCE ONE Administration Medical Decision Making Differential Diagnosis Differential Diagnoses: The differential diagnosis associated with the presentation includes (cardiac ischemia, HTN, pneumonia were all considered) Admission/Observation Consideration of admission/observation: Escalation of care including admission/observation considered (upon arrival patient was considered for admission) Lab Data 12/19/23 15:42 12/19/23 15:42 Labs: Lab Results 12/19/23 12/19/23 Range/Units 15:20 15:42 WBC 5.5 (4.8-10.8) X10*3/uL RBC 4.48 L (4.60-5.80) X10*6/uL Hgb 12.7 L (14.0-18.0) g/dl Hct 36.5 L (42.0-52.0) % MCV 81.5 (80.0-98.0) fL MCH 28.3 (27.0-33.0) pg MCHC 34.8 (31.0-36.0) g/dl RDW 12.6 (11.0-16.0) % Plt Count 206 D (160-400) X10*3/uL MPV 10.3 (9.4-12.4) fL Immature Gran % (Auto) 0.2 (0.0-0.4) % Neut % (Auto) 54.4 (45-73) % Lymph % (Auto) 33.0 (20-40) % [place] % (Auto) 8.8 (2-11) % Eos % (Auto) 3.2 (0-4) % Baso % (Auto) 0.4 (0-2) % Lymph # (Auto) 1.8 (1.2-4.9) X10*3/uL [place] # (Auto) 0.5 (0.1-1.2) X10*3/uL Eos # (Auto) 0.2 (0.0-0.4) X10*3/uL Baso # (Auto) 0.0 (0.0-0.2) X10*3/uL Abs Immat Gran (auto) 0.01 (0.00-0.03) X10*3/uL Absolute Neuts (auto) 3.0 (2.0-8.3) x10*3/uL Absolute Nucleated RBC 0.000 (0.0-0.012) X10*3/uL Nucleated RBC % (auto) 0.0 (0.0-0.2) /100WBC Sodium 139 (135-145) mmol/L Potassium 5.1 (3.3-5.1) mmol/L Chloride 107 (96-108) mmol/L Carbon Dioxide 26 (22-29) mmol/L Anion Gap 11 L (12-20) BUN 14 (9-16) mg/dL Creatinine 1.61 H (0.5-1.4) mg/dL Estim Creat Clear Calc 40.7 Estimated GFR 43 POC Glucose 364 H* (60-115) mg/dL Random Glucose 381 H* (60-115) mg/dL Calcium 9.6 (8.4-10.2) mg/dL Total Bilirubin 0.4 (0.0-1.0) mg/dL AST 16 (5-37) U/L ALT 15 (0-40) U/L Alkaline Phosphatase 115 (39-117) U/L Total Protein 7.8 (6.5-8.0) g/dL Albumin 4.2 (3.5-5.0) g/dL Independent Interpretation I performed an independent interpretation of an: EKG (sinus 70, old anterior septal qs, no change from 01/2022) Independent Historian Clinical information obtained from an independent historian. History obtained from or confirmed by: EMS Discharge Plan Discharge Clinical Impression: Chest pain, HTN (hypertension) Patient Disposition: Still a Patient Prescriptions: No Action doxycycline hyclate 100 mg tablet 100 mg PO BID Qty: 20 0RF benzonatate [Tessalon Perles] 100 mg capsule 100 mg PO TID PRN (Reason: cough) Qty: 20 0RF ondansetron 4 mg tablet,disintegrating 4 mg PO Q6H PRN (Reason: nausea and vomiting) Qty: 7 0RF cephalexin 500 mg capsule 500 mg PO Q6H 10 Days Qty: 40 0RF doxycycline monohydrate 100 mg capsule 100 mg PO BID 10 Days Qty: 20 0RF lisinopril 10 mg tablet 10 mg PO DAILY Qty: 30 1RF metformin 500 mg tablet 500 mg PO BID Qty: 60 1RF (DME) blood-glucose meter [Freestyle [employer]] Misc See Rx Instructions .Route Qty: 1 2RF Rx Instructions: As directed (DME) Freestyle [employer] Strip See Rx Instructions .Route Qty: 50 2RF Rx Instructions: As directed (DME) lancets [FreeStyle Lancets] 28 gauge misc See Rx Instructions .Route Qty: 100 2RF Rx Instructions: As directed alcohol swabs [Alcohol Wipes] Pads, Medicated 1 pad topical Q6H Qty: 200 1RF tramadol 50 mg tablet 50 mg PO Q8H PRN (Reason: pain) Qty: 14 0RF Rx Instructions: May partially fill upon patient request Print Language: Tajik
[2023-12-19 15:46] LABS: MANUAL DIFF FLAG NO
[2023-12-19 15:50] LABS: Basophils Percent Auto 0.4 % (0-2); Eosinophils Absolute Auto 0.2 X10*3/uL (0.0-0.4); Eosinophils Percent Auto 3.2 % (0-4); Hematocrit 36.5 % (42.0-52.0); Hemoglobin 12.7 g/dl (14.0-18.0); Imm Gran Abs Auto 0.01 X10*3/uL (0.00-0.03); Imm Gran Pct Auto 0.2 % (0.0-0.4); Lymphocytes Absolute Auto 1.8 X10*3/uL (1.2-4.9); Mean Corpuscular HGB Conc 34.8 g/dl (31.0-36.0); Mean Corpuscular Hemoglobin 28.3 pg (27.0-33.0); Mean Corpuscular Volume 81.5 fL (80.0-98.0); Mean Platelet Volume 10.3 fL (9.4-12.4); Monocytes Absolute Auto 0.5 X10*3/uL (0.1-1.2); Monocytes Percent Auto 8.8 % (2-11); Neutrophils Percent Auto 54.4 % (45-73); Platelet Count 206 X10*3/uL (160-400); Red Blood Count 4.48 X10*6/uL (4.60-5.80); Red Cell Distribution Width 12.6 % (11.0-16.0); White Blood Count 5.5 X10*3/uL (4.8-10.8)
[2023-12-19 15:56] VITALS: BP 156/76; PULSE 65; RESP 15; O2SAT 98
[2023-12-19] MEDS: metFORMIN HCl 1,000 MG TABLET 1000 MG PO (15:56)
[2023-12-19 16:08] LABS: Alanine Aminotransferase 15 U/L (0-40); Albumin Level 4.2 g/dL (3.5-5.0); Alkaline Phosphatase 115 U/L (39-117); Anion Gap 11 (12-20); Aspartate Amino Transferase 16 U/L (5-37); Bilirubin Total 0.4 mg/dL (0.0-1.0); Blood Urea Nitrogen 14 mg/dL (9-16); Calcium 9.6 mg/dL (8.4-10.2); Carbon Dioxide 26 mmol/L (22-29); Chloride 107 mmol/L (96-108); Creatinine Clr Calc Pharmacy 40.7; Estimated Glomerular Filt Rate 43; Glucose Random 381 mg/dL (60-115); Potassium 5.1 mmol/L (3.3-5.1); Sodium 139 mmol/L (135-145); Total Protein 7.8 g/dL (6.5-8.0)
[2023-12-19 16:11] VITALS: BP 165/78; PULSE 62; RESP 15; O2SAT 99
[2023-12-19] MEDS: Insulin Lispro 100 UNIT/ML 3 ML VIAL SUBCUT ×2 (16:12→20:50)
[2023-12-19 16:26] LABS: Troponin-I High Sensitivity 492.5 ng/L (<3.5-35.0)
[2023-12-19 17:10] LABS: Glucose, Whole Blood 234 mg/dL (60-115)
[2023-12-19 17:29] VITALS: BP 178/8; PULSE 63; RESP 19; O2SAT 99
[2023-12-19] MEDS: Losartan Potassium 50 MG TABLET 100 MG PO (17:29)
[2023-12-19] MEDS: amLODIPine Besylate 5 MG TABLET PO (17:29)
[2023-12-19] MEDS: Nitroglycerin 2 % Oint 1 GM Packet 1 INCH TRANSDERMA (17:30)
[2023-12-19 17:40] LABS: INTERNATIONAL NORM RATIO 0.9 (0.9-1.1); Prothrombin Time 10.9 SEC (11.1-13.3)
[2023-12-19 17:43] LABS: Partial Thromboplastin Time 30.2 SEC (26.0-36.8)
--- NOTE | 2023-12-19 17:48 | ECG_ITS ---
Test Reason : ELEVATED TROP Blood Pressure : / mmHG Vent. Rate : 062 BPM Atrial Rate : 062 BPM P-R Int : 144 ms QRS Dur : 084 ms QT Int : 358 ms P-R-T Axes : 057 -22 054 degrees QTc Int : 363 ms Normal sinus rhythm Moderate voltage criteria for LVH, may be normal variant ( R in aVL , [place] product ) Septal infarct (cited on or before 19-DEC-2023) Abnormal ECG When compared with ECG of 19-DEC-2023 15:29, No significant change was found Referred By: Olivier Wu Electronically Signed By:RON POWELL MD
[2023-12-19] MEDS: Heparin Sodium,Porcine 5,000 UNIT/ML VIAL 5000 UNIT IVPUSH (18:33)
--- NOTE | 2023-12-19 19:02 | P.HPHOSP_ITS ---
History of Present Illness Date of Service: 12/19/23 <HAWA Cruz - Last Filed: 12/19/23 19:11> Attending physician on admission: Kana Bartholomew <HAWA Cruz - Last Filed: 12/19/23 19:11> Chief Complaint: chest pain <HAWA Cruz - Last Filed: 12/19/23 19:11> 63-year-old male with history of hyperlipidemia, hypertension, vnv-uodlbyc-nkqpurbyf type 2 diabetes presents to the ED earlier today for evaluation of chest pain. He reports he woke up around 915 this morning with a heavy squeezing sensation in the mid chest radiating to the axilla bilaterally. There was no associated dyspnea, lightheadedness, palpitations, diaphoresis, nausea or vomiting. He did call EMS and was given nitroglycerin with improvement in symptoms. Total duration of pain was around 3 hours. Denies any history of known cardiovascular disease and no history of heart attack. He is currently asymptomatic. Does report his mother, father, and 2 brothers of heart attacks, his father around age. On arrival, patient hypertensive to 156/82 with blood pressure 178/88 on admission. Vital signs otherwise stable. Hematology studies unremarkable. Renal function and electrolyte levels normal your glucose two hundred thirty-four. Initial troponin 492, repeat 2412. EKG shows NSR, rate 62 without acute ischemic changes. No ST/depressions. Unchanged from prior EKG earlier today. CXR unremarkable. In the ED has been given 5 units insulin, 100 mg losartan, 1 in nitroglycerin, 5 mg amlodipine, and 1000 mg of metformin. He was also initiated on heparin drip per protocol with bolus. He will be admitted for further management of NSTEMI. Was given 324 mg asa by ems and nitro. <HAWA Cruz - Last Filed: 12/19/23 19:11> Review of Systems 2 Review of Systems: General: No fevers, malaise, unintentional weight loss HEENT: No blurred vision, diplopia. No sore throat, nasal congestion, rhinorrhea, sinus pain, ear pain Cardiovascular: +chest pain. No palpitations, or leg edema Respiratory: No shortness of breath, wheezing, cough GI: No abdominal pain, nausea, vomiting, diarrhea, constipation, melena, hematochezia : No dysuria, hematuria, increased urinary frequency, decreased urinary output MSK: No myalgia, back pain Neuro: No headaches, weakness, paresthesias Skin: No rashes or lesions <HAWA Cruz - Last Filed: 12/19/23 19:11> [facility] Medical History: Medical History (Updated 12/19/23 @ 19:06 by HAWA Cruz) HLD (hyperlipidemia) HTN (hypertension) Diabetes <HAWA Cruz - Last Filed: 12/19/23 19:11> Surgical History: Surgical History Hx of appendectomy <HAWA Cruz - Last Filed: 12/19/23 19:11> Social History: Social History Smoked in Last 30 Days: No Use of substances other than those prescribed or required for medical reasons: No Advance Directives: No Advance Directives Information Provided: No <HAWA Cruz - Last Filed: 12/19/23 19:11> Meds Allergies/Adverse reactions: Allergies Allergy/AdvReac Type Severity Reaction Status Date / Time No Known Allergies Allergy Verified 12/19/23 15:25 <HAWA Cruz - Last Filed: 12/19/23 19:11> Active Medications: Current Medications Heparin Sodium (Porcine) (Heparin Sodium,Porcine 5,000 Unit/Ml Vial) 2,800 unit 40 unit/kg (2800 unit) IVPUSH PROTOCOL BOLUS PRN; Protocol PRN Reason: 40 unit/kg - Heparin Protocol Heparin Sodium (Porcine) (Heparin Sodium,Porcine 5,000 Unit/Ml Vial) 5,600 unit 80 unit/kg (5600 unit) IVPUSH PROTOCOL BOLUS PRN; Protocol PRN Reason: 80 unit/kg - Heparin Protocol Heparin Sodium/Sodium Chloride (Heparin Sodium,Porcine/1/2ns) 25,000 unit in 250 mls @ 0 mls/hr IVCONT .Q0M RAUDEL; Protocol <HAWA Cruz - Last Filed: 12/19/23 19:11> Physical Exam 2 Vital Signs and Narrative: Vital Signs: Last Vital Signs Temp 98.1 F 12/19/23 15:21 Pulse 63 12/19/23 17:29 Resp 19 12/19/23 17:29 BP 178/8 H 12/19/23 17:29 Pulse Ox 99 12/19/23 17:29 O2 Del Method Room Air 12/19/23 17:29 BMI result Body Mass Index 27.3 <HAWA Cruz - Last Filed: 12/19/23 19:11> Constitutional - Awake and Alert, No apparent distress Eyes - PERRLA, EOMI Cardiovascular - S1S2, RRR, No edema Respiratory - Normal lung expansion, Normal respiratory effort, No respiratory distress, CTA bilaterally Gastrointestinal - NT / ND; +BS; No rebound or guarding Extremities - no calf tenderness bilaterally, no swelling Skin - Warm/Dry Neurological - Alert & oriented x3 Psychological - Appropriate affect <HAWA Cruz - Last Filed: 12/19/23 19:11> Results Labs CBC and Chem 7: 12/19/23 15:42 12/19/23 15:42 <HAWA Cruz - Last Filed: 12/19/23 19:11> Labs: Laboratory Results - last 24 hr 12/19/23 12/19/23 12/19/23 15:20 15:42 17:05 MCV 81.5 MCH 28.3 MCHC 34.8 RDW 12.6 Plt Count 206 D MPV 10.3 Immature Gran % (Auto) 0.2 Neut % (Auto) 54.4 Lymph % (Auto) 33.0 Overton % (Auto) 8.8 Eos % (Auto) 3.2 Baso % (Auto) 0.4 Lymph # (Auto) 1.8 Overton # (Auto) 0.5 Eos # (Auto) 0.2 Baso # (Auto) 0.0 Abs Immat Gran (auto) 0.01 Absolute Neuts (auto) 3.0 Absolute Nucleated RBC 0.000 Nucleated RBC % (auto) 0.0 PT INR APTT Anion Gap 11 L Estim Creat Clear Calc 40.7 Estimated GFR 43 POC Glucose 364 H* 234 H Random Glucose 381 H* Calcium 9.6 Total Bilirubin 0.4 AST 16 ALT 15 Alkaline Phosphatase 115 Troponin I High Sens 492.5 H* Total Protein 7.8 Albumin 4.2 12/19/23 17:21 MCV MCH MCHC RDW Plt Count MPV Immature Gran % (Auto) Neut % (Auto) Lymph % (Auto) Overton % (Auto) Eos % (Auto) Baso % (Auto) Lymph # (Auto) Overton # (Auto) Eos # (Auto) Baso # (Auto) Abs Immat Gran (auto) Absolute Neuts (auto) Absolute Nucleated RBC Nucleated RBC % (auto) PT 10.9 L INR 0.9 APTT 30.2 Anion Gap Estim Creat Clear Calc Estimated GFR POC Glucose Random Glucose Calcium Total Bilirubin AST ALT Alkaline Phosphatase Troponin I High Sens 2412.5 H* D Total Protein Albumin <HAWA Cruz - Last Filed: 12/19/23 19:11> Imaging Radiologist's Impressions: Impressions Chest X-Ray 12/19/23 16:25 IMPRESSION: No evidence for acute disease in the chest. <HAWA Cruz - Last Filed: 12/19/23 19:11> Assessment and Plan (1) NSTEMI (non-ST elevated myocardial infarction): Status: Acute <HAWA Cruz - Last Filed: 12/19/23 19:11> 63-year-old male with history of hyperlipidemia, hypertension, oja-svkdtdz-jvkiifjfj type 2 diabetes admitted for further management of NSTEMI. # NSTEMI -initial troponin 492 -->2400 -EKG without acute ischemic changes -given 324 mg aspirin by EMS, continue 81 mg aspirin daily -lipid profile pending, initiate atorvastatin 80 mg daily -and metoprolol 50 mg b.i.d. -continue heparin drip per protocol -echocardiogram -cardiology consult -cardiac diet -monitor on telemetry # uncontrolled znb-irrrelp-kccwfvowi type 2 diabetes with hyperglycemia -hemoglobin A1c pending -POC glucose, diabetic diet -Humalog on sliding scale -hold further oral anti hyperglycemics # hypertension -continue lisinopril. Add metoprolol 50mg BID -= monitor blood pressures # HLD -lipid profile pending, initiate atorvastatin 80 mg daily DVT prophylaxis-heparin per protocol Full code Patient requires inpatient stay at least 2 midnights for management of NSTEMI on heparin drip per protocol requiring expert consultation and probable transfer to tertiary care facility for cardiac catheterization <HAWA Cruz - Last Filed: 12/19/23 19:11> 63-year-old male with history of hyperlipidemia, hypertension, mat-cfdtjks-jenrtldou type 2 diabetes admitted for further management of NSTEMI. # NSTEMI -initial troponin 492 -->2400 -EKG without acute ischemic changes -given 324 mg aspirin by EMS, continue 81 mg aspirin daily -lipid profile pending, initiate atorvastatin 40 mg daily -and metoprolol 25 mg b.i.d. -continue heparin drip per protocol -echocardiogram -cardiology consult -cardiac diet -monitor on telemetry # uncontrolled cjy-zouwasm-byxfgpesl type 2 diabetes with hyperglycemia -hemoglobin A1c pending -POC glucose, diabetic diet -Humalog on sliding scale -hold further oral anti hyperglycemics # hypertension -continue lisinopril. Add metoprolol 25mg BID -= monitor blood pressures # HLD -lipid profile pending, initiate atorvastatin 40 mg daily DVT prophylaxis-heparin per protocol Full code Patient requires inpatient stay at least 2 midnights for management of NSTEMI on heparin drip per protocol requiring expert consultation and probable transfer to tertiary care facility for cardiac catheterization <Kana Bartholomew MD - Last Filed: 12/19/23 19:29> Quality Stroke Does the patient have a stroke diagnosis?: No <HAWA Cruz - Last Filed: 12/19/23 19:11> VTE Prior VTE?: No <HAWA Cruz - Last Filed: 12/19/23 19:11> VTE Risk Level:: Medical - moderate - high <HAWA Cruz - Last Filed: 12/19/23 19:11> VTE Device Contraindication: Treatment Not Indicated <HAWA Cruz - Last Filed: 12/19/23 19:11> VTE Drug Contraindication: N/A - Med Ordered <HAWA Cruz - Last Filed: 12/19/23 19:11>
[2023-12-19] MEDS: Heparin Sodium,Porcine/1/2NS 25,000 UNIT/250 ML IV.SOLN 8.4 UNIT IVCONT (19:08)
--- NOTE | 2023-12-19 19:09 | PC.NURSE ---
Assumed care of pt. Started Heparin drip with prior nurse, running per protocols for initial start. Pt in no acute distress at this time, denies CP. Continuing plan of care for pt.
[2023-12-19 19:14] LABS: Estimated Average Glucose 223 mg/dL; Hemoglobin A1c % 9.4 % (<6.0)
[2023-12-19 19:18] LABS: Cholesterol 200 mg/dL (<200); HDL Cholesterol 46 mg/dL (>40); LDL Cholesterol Calculated 121 mg/dL (<100); Triglycerides 166 mg/dL (<150)
--- NOTE | 2023-12-19 19:31 | PC.NURSE ---
pt home meds sent to pharmacy
--- NOTE | 2023-12-19 19:34 | PC.NURSE ---
Pt assisted to bedside commode.
[2023-12-19] MEDS: Metoprolol Tartrate 25 MG TABLET PO (19:37)
[2023-12-19] MEDS: Atorvastatin Calcium 40 MG TABLET PO (19:38)
--- NOTE | 2023-12-19 19:46 | MHC.EDTECH ---
Assumed care at 1900
[2023-12-19 20:00] VITALS: BP 161/74; PULSE 69; RESP 19; TEMP 36.1; O2SAT 99
--- NOTE | 2023-12-19 20:40 | MHC.EDTECH ---
Transferred care to TAYLOR Patel at 20:15
[2023-12-19 20:41] LABS: Glucose, Whole Blood 179 mg/dL (60-115)
--- NOTE | 2023-12-19 20:50 | PC.NURSE ---
2100 dose of Metoprolol not given in favor of starting dose scheduled for 1929, per MD Bartholomew.
--- NOTE | 2023-12-19 20:52 | PHA.MEDREC ---
Pharmacy Consult ? Medication Reconciliation Pharmacy has completed the medication reconciliation. 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 Patient has both Jardiance 10 mg and 25 mg but he is only taking the 10 mg. He also filled Trulicity but hasn't started taking it yet (supposed to see doctor today to go over the instruction).
[2023-12-20] VITALS: BP 138/68; PULSE 62; RESP 16; TEMP 36.8; O2SAT 98
--- NOTE | 2023-12-20 00:54 | PC.NURSE ---
assumed care of the pt at 23:00.
--- NOTE | 2023-12-20 01:35 | MHC.EDTECH ---
PTT DRAWN AND SENT TO LAB .
[2023-12-20 01:46] LABS: PTT Heparin Drip 90.5 SEC (53-77.9)
[2023-12-20 02:41] VITALS: BP 141/69; PULSE 60; RESP 16; TEMP 36.8; O2SAT 98
--- NOTE | 2023-12-20 03:26 | PC.NURSE ---
PTT heparin drip resulted at 90.5, drip titrated per protocol @0240. now running at 10u/kg/hr. pt resting comfortably, has no current complaints, denies pain. is on panel monitor. next PTT to be drawn at 08:40. Pt going upstairs to [facility] bed 461. Admission report complete.
--- NOTE | 2023-12-20 07:00 | CA_ITS ---
Transthoracic Echocardiogram Patient (Last, First, Middle): Greg Land, Gender: Male Date of : 1960 Age: 63 Procedure Date: 12/20/2023 Procedure Type: Transthoracic Echocardiogram Location: [facility] Height: 160.02 cm Weight: 69.85 kg BSA: 1.73 m2 Heart Rate: bpm BP: 135 / 53 mmHg Speedometer Inspector: Referring MD: Luzmaria SHAIKH Developmental Behavioral Physician: Tan Mcwilliams MD Symptoms: nstemi Study Quality: Adequate ECG Rhythm: Sinus Conclusions: - 1. Xbzd-pp-jfqqddqj LV systolic dysfunction with mild LVH with regional wall motion abnormality in mid to distal LAD territory with impaired relaxation filling pattern 2. Mild aortic regurgitation 3. No gross pericardial effusion Findings Procedure Information Contrast agent, definity, is being given per protocol without apparent complications. Left Ventricle Normal left ventricular cavity size. There is mildly increased left ventricular wall thickness. The left ventricular systolic function is mild to moderately decreased. The visually estimated ejection fraction is between 40-45%. Spectral Doppler is indicative of an impaired relaxation filling pattern. E/E prime ratio is between 8 and 15 consistent with indeterminate filling pressures. Wall Motion Rest Echo Findings The apex, apical anterior, apical lateral, apical septum, and mid anteroseptal segments are hypokinetic. All other scored wall segments showed normal motion. Right Ventricle Normal right ventricular cavity size and systolic function. Atria The left atrium is mildly dilated. There is lipomatous hypertrophy of the interatrial septum. There is no evidence of interatrial shunt. The right atrium is normal in size. Aortic Valve Normal aortic valve structure and function. There is no aortic valve stenosis. There is mild aortic valve regurgitation. Mitral Valve Normal mitral valve structure and function. There is trace mitral valve regurgitation. There is no mitral valve stenosis. Pulmonic Valve The pulmonic valve is likely normal. There is trace pulmonic valve regurgitation. Tricuspid Valve Normal tricuspid valve structure. Tricuspid regurgitation envelope is inadequate for calculation of right ventricular systolic pressure. Normal right atrial pressure. Great Vessels All visible segments of the aorta are normal in size. The pulmonary artery was not well visualized. Venous The inferior vena cava is normal in size and collapses greater than 50% with inspiration. Pericardium/Pleural There is no evidence of pericardial effusion. Prior Study Comparison No prior study available for comparison. Measurements 2D Linear Measurements IVSd: 1.35 0.6-0.9/0.6-1.0 cm LVIDd: 4.56 3.9-5.3/4.2-5.9 cm LVIDd Index: 2.64 2.4-3.2/2.2-3.1 cm/m2 LVIDs: 2.94 2.0-3.6 cm LVPWd: 1.22 0.7-1.1 cm Ao Root: 3.80 2.1-3.5 cm LA Diam: 3.40 2.7-3.8/3.0-4.0 cm LAIDs Index: 1.97 1.5-2.3 cm/m2 LV Mass: 278.35 67-162/88-224 g LV Mass Index: 160.90 43-95/49-115 g/m2 LVOT Diam: 2.10 3.0+(-)1.3 cm 2D Systolic Function EF 4C: 47.50 >55% EF 2C: 47.00 >55% EF BiP: 44.30 >55% Mitral Valve MV Pk E: 0.51 MV PK A: 1.03 MV Decel Time: 290.00 E/A: 0.50 E'Lateral: 3.48 E'Medial: 3.70 E/E' Med: 13.90 E/E' Lat: 14.80 PHT: 85.00 MVA PHT: 2.59 Decel [place]: 1.77 Aortic Valve AoV Pk Osmany: 1.16 AoV Mn Osmany: 0.77 AoV VTI: 0.24 AoV Pk Grad: 5.00 Aov Mn Grad: 3.00 CORI Cont.VTI: 3.06 LVOT LVOT Pk Osmany: 0.91 LVOT Mn Osmany: 0.55 LVOT VTI: 0.21 LVOT Pk Grad: 3.00 LVOT Mn Grad: 2.00 LVOT Diam: 2.10 LVOT Area: 3.46 Diastolic Function MV Pk E: 0.51 MV Pk A: 1.03 E/A: 0.50 E'Medial: 3.70 E/E' Med: 13.90 E' Laterial: 3.48 E/E' Lat: 14.80 Right Ventricle TAPSE (mm): 28.10 TVS' Osmany: 15.40 Tricuspid Valve TR Pk Osmany: 1.72 TR Pk Grad: 12.00 Great Vessels Aorta Ao Root-2D: 3.80 2.0-3.7 cm Ao Asc: 3.40 2.1-3.4 cm Pulmonary Valve PV Pk Osmany: 0.97 Peak PV Grad: 4.00 Updated in Other Vendor System with Status of Final Tan Mcwilliams MD electronically signed on 12/20/2023 11:29:21 AM with status of Final
[2023-12-20 07:08] VITALS: BP 135/63; PULSE 66; RESP 20; TEMP 37; O2SAT 98
[2023-12-20 07:30] LABS: Glucose, Whole Blood 308 mg/dL (60-115)
[2023-12-20] MEDS: Atorvastatin Calcium 40 MG TABLET PO (08:06)
[2023-12-20] MEDS: Empagliflozin 10 MG TABLET PO (08:06)
[2023-12-20] MEDS: Metoprolol Tartrate 25 MG TABLET PO (08:06)
[2023-12-20] MEDS: hydroCHLOROthiazide 25 MG TABLET PO (08:06)
[2023-12-20] MEDS: Losartan Potassium 50 MG TABLET 100 MG PO (08:06)
[2023-12-20] MEDS: Insulin Lispro 100 UNIT/ML 3 ML VIAL SUBCUT (08:06)
[2023-12-20] MEDS: 0.9 % Sodium Chloride Flush 3 ML SYRINGE IVFLUSH (08:06)
[2023-12-20] MEDS: amLODIPine Besylate 5 MG TABLET PO (08:07)
--- NOTE | 2023-12-20 09:47 | PM.CNCAR ---
History of Present Illness History of Present Illness Date of Service: 12/20/23 Requesting physician: Jameel Wong Consult reason: other (NSTEMI) Chief complaint: NSTEMI Narrative: I was consulted to see Greg in cardiology consultation today for NSTEMI. History was obtained with help of a certified member service specialist at bedside. Patient is a pleasant 63-year-old male with prior history of hypertension, diabetes, hyperlipidemia, hypertension has been difficult control. Yesterday morning he woke up and developed across the chest tightness which is quite severe. He then had appointment is primary care physician for blood pressure management understanding the use of medications he went there and then he was advised a transferred to the emergency room via an ambulance. The ambulance he got sublingual nitroglycerin with resolution of his pain. Patient has not had any chest pain since then. However his troponins initially were 492 subsequently 2400. He was admitted and started on IV heparin. He has been doing well. EKG did not show acute ST T wave changes but shows loss of R-wave in lead V3. Could be lead placement. Echocardiogram was being performed. Cardiology consult was sought for management of NSTEMI. Review of Systems Constitutional: Constitutional: Reports no additional constitutional complaints Eyes: Eyes: Reports no additional eye complaints ENT: Reports system reviewed and no additional complaints, except as documented Cardiovascular: Cardiovascular: Reports chest pain at rest, Denies leg edema, Denies lightheadedness, Denies Loss of Consciousness, Denies palpitations and Denies dyspnea Respiratory: Respiratory: Reports no additional respiratory complaints and Denies dyspnea Gastrointestinal: Gastrointestinal: Reports no additional gastrointestinal complaints Genitourinary: Genitourinary: Reports no additional male genitourinary complaints Musculoskeletal: Musculoskeletal: Reports no additional musculoskeletal complaints Neurologic: Reports system reviewed and no additional complaints, except as documented Psychiatric: Psychiatric: Reports no additional psychiatric complaints Endocrine: Endocrine: Reports no additional endocrine complaints and Denies palpitations PMFSH Past Medical History Medical History HLD (hyperlipidemia) HTN (hypertension) Diabetes Surgical History Surgical History Hx of appendectomy Social History Social History Household Members: None Housing: Apartment Do you presently have visiting nurse or other home services: No Patient Tobacco Use Status: Tobacco use Unknown Meds Allergies Allergy/AdvReac Type Severity Reaction Status Date / Time No Known Allergies Allergy Verified 12/19/23 15:25 Active Medications: Current Medications Acetaminophen (Acetaminophen 325 Mg Tablet) 650 mg PO Q6H PRN PRN Reason: Pain, Mild (Pain Scale 1-3) Amlodipine Besylate (Amlodipine Besylate 5 Mg Tablet) 5 mg PO DAILY [facility]; Protocol Last Admin: 12/20/23 08:07 Dose: 5 mg Atorvastatin Calcium (Atorvastatin Calcium 40 Mg Tablet) 40 mg PO DAILY [facility] Last Admin: 12/20/23 08:06 Dose: 40 mg Empagliflozin (Empagliflozin 10 Mg Tablet) 10 mg PO DAILY [facility] Last Admin: 12/20/23 08:06 Dose: 10 mg Glucose (Glucose Gel 15 Gm Gel..Gram.) 15 gm PO Q15M PRN; Protocol PRN Reason: per Hypoglycemia Standing Ord. Heparin Sodium (Porcine) (Heparin Sodium,Porcine 5,000 Unit/Ml Vial) 2,800 unit 40 unit/kg (2800 unit) IVPUSH PROTOCOL BOLUS PRN; Protocol PRN Reason: 40 unit/kg - Heparin Protocol Heparin Sodium (Porcine) (Heparin Sodium,Porcine 5,000 Unit/Ml Vial) 5,600 unit 80 unit/kg (5600 unit) IVPUSH PROTOCOL BOLUS PRN; Protocol PRN Reason: 80 unit/kg - Heparin Protocol Heparin Sodium/Sodium Chloride (Heparin Sodium,Porcine/1/2ns) 25,000 unit in 250 mls @ 0 mls/hr IVCONT .Q0M [facility]; Protocol Last Titration: 12/20/23 02:41 Dose: 10 units/kg/hr, 7 mls/hr Dextrose (D10) 250 mls @ 750 mls/hr IV Q15M PRN; Protocol PRN Reason: per Hypoglycemia Standing Ord. Insulin Human Lispro (Insulin Lispro 100 Unit/Ml 3 Ml Vial) 0 unit SUBCUT QIDACHS [facility]; Protocol Last Admin: 12/20/23 08:06 Dose: 8 unit Metoprolol Tartrate (Metoprolol Tartrate 25 Mg Tablet) 25 mg PO BID [facility]; Protocol Last Admin: 12/20/23 08:06 Dose: 25 mg Ondansetron HCl (Ondansetron Hcl 4 Mg/2 Ml Vial) 4 mg IVPUSH Q8H PRN PRN Reason: Nausea and Vomiting Senna (Sennosides 8.6 Mg Tablet) 17.2 mg PO BEDTIME PRN PRN Reason: Constipation Sodium Chloride (0.9 % Sodium Chloride Flush 3 Ml Syringe) [address] [facility] Last Admin: 12/20/23 08:06 Dose: 3 ml Home Medications ?Medication ?Instructions ?Recorded ?Confirmed ?Last Taken ?Type amlodipine 5 mg tablet 5 mg PO QAM 12/19/23 12/19/23 12/18/23 History empagliflozin 10 mg tablet 10 mg PO QAM 12/19/23 12/19/23 12/18/23 History (Jardiance) losartan 100 1 tab PO QAM 12/19/23 12/19/23 12/18/23 History mg-hydrochlorothiazide 25 mg tablet Physical Exam Vital Signs: Vital Signs: Last Vital Signs Temp 98.6 F 12/20/23 07:08 Pulse 66 12/20/23 07:08 Resp 20 12/20/23 07:08 BP 135/63 12/20/23 07:08 Pulse Ox 98 12/20/23 07:08 O2 Del Method Room Air 12/20/23 07:08 BMI result Body Mass Index 27.3 Const: General: cooperative, comfortable, no acute distress, alert, awake and Physically active Nutritional Appearance: average body habitus Orientation/consciousness: patient oriented x3 Limitations: no limitations HEENT: Head: Yes normocephalic and Yes atraumatic Neck: Neck: Yes trachea midline, Yes supple and Yes no JVD Resp: Effort & Inspection: normal respiratory effort Auscultation: clear to auscultation bilaterally Cardio: Jugular venous distension: no JVD Palpation: normal PMI Rate: regular rate Rhythm: regular rhythm Heart sounds: S1 normal heart sound present, S2 normal heart sound present, no click, no gallops, no murmurs and no rubs GI: Auscultation: normal bowel sounds Skin: General skin exam: no rashes or lesions noted Neuro: General: patient oriented x3 and no focal motor deficits Extrem: General: Yes no clubbing, cyanosis or edema Psych: Appearance: grossly normal Objective Labs and Meds 12/19/23 15:42 12/19/23 15:42 Lab results: Laboratory Results - last 24 hr 12/19/23 12/19/23 12/19/23 15:20 15:42 17:05 WBC 5.5 RBC 4.48 L Hgb 12.7 L Hct 36.5 L MCV 81.5 MCH 28.3 MCHC 34.8 RDW 12.6 Plt Count 206 D MPV 10.3 Immature Gran % (Auto) 0.2 Neut % (Auto) 54.4 Lymph % (Auto) 33.0 [place] % (Auto) 8.8 Eos % (Auto) 3.2 Baso % (Auto) 0.4 Lymph # (Auto) 1.8 [place] # (Auto) 0.5 Eos # (Auto) 0.2 Baso # (Auto) 0.0 Abs Immat Gran (auto) 0.01 Absolute Neuts (auto) 3.0 Absolute Nucleated RBC 0.000 Nucleated RBC % (auto) 0.0 PT INR APTT aPTT Heparin Protocol Sodium 139 Potassium 5.1 Chloride 107 Carbon Dioxide 26 Anion Gap 11 L BUN 14 Creatinine 1.61 H Estim Creat Clear Calc 40.7 Estimated GFR 43 POC Glucose 364 H* 234 H Random Glucose 381 H* Estimat Average Glucose 223 Hemoglobin A1c % 9.4 H Calcium 9.6 Total Bilirubin 0.4 AST 16 ALT 15 Alkaline Phosphatase 115 Troponin I High Sens 492.5 H* Total Protein 7.8 Albumin 4.2 Triglycerides 166 H Cholesterol 200 H LDL Cholesterol, Calc 121 H HDL Cholesterol 46 12/19/23 12/19/23 12/20/23 17:21 20:36 01:31 WBC RBC Hgb Hct MCV MCH MCHC RDW Plt Count MPV Immature Gran % (Auto) Neut % (Auto) Lymph % (Auto) [place] % (Auto) Eos % (Auto) Baso % (Auto) Lymph # (Auto) [place] # (Auto) Eos # (Auto) Baso # (Auto) Abs Immat Gran (auto) Absolute Neuts (auto) Absolute Nucleated RBC Nucleated RBC % (auto) PT 10.9 L INR 0.9 APTT 30.2 aPTT Heparin Protocol 90.5 H Sodium Potassium Chloride Carbon Dioxide Anion Gap BUN Creatinine Estim Creat Clear Calc Estimated GFR POC Glucose 179 H Random Glucose Estimat Average Glucose Hemoglobin A1c % Calcium Total Bilirubin AST ALT Alkaline Phosphatase Troponin I High Sens 2412.5 H* D Total Protein Albumin Triglycerides Cholesterol LDL Cholesterol, Calc HDL Cholesterol 12/20/23 07:13 WBC RBC Hgb Hct MCV MCH MCHC RDW Plt Count MPV Immature Gran % (Auto) Neut % (Auto) Lymph % (Auto) [place] % (Auto) Eos % (Auto) Baso % (Auto) Lymph # (Auto) [place] # (Auto) Eos # (Auto) Baso # (Auto) Abs Immat Gran (auto) Absolute Neuts (auto) Absolute Nucleated RBC Nucleated RBC % (auto) PT INR APTT aPTT Heparin Protocol Sodium Potassium Chloride Carbon Dioxide Anion Gap BUN Creatinine Estim Creat Clear Calc Estimated GFR POC Glucose 308 H Random Glucose Estimat Average Glucose Hemoglobin A1c % Calcium Total Bilirubin AST ALT Alkaline Phosphatase Troponin I High Sens Total Protein Albumin Triglycerides Cholesterol LDL Cholesterol, Calc HDL Cholesterol EKG shows normal sinus rhythm with voltage criteria for LVH with nonspecific ST T wave changes with loss of R-wave in lead V3 Imaging Radiologist's impression: Impressions Chest X-Ray 12/19/23 16:25 IMPRESSION: No evidence for acute disease in the chest. Assessment and Plan (1) NSTEMI (non-ST elevated myocardial infarction): Status: Acute NSTEMI with high risk features in this middle-aged man who is very active and functional currently stable and with no chest pain. Suspect LAD territory ischemia. Echocardiogram being performed. We discussed about management of NSTEMI and invasive approach as ideal approach to manage this kind of condition. This was discussed with him in details. We discussed the need for cardiac catheterization and pathophysiology of acute coronary syndrome. We discussed the procedures in details including risk, benefits and alternatives. All the discussion was with help of member service specialist. He understands and he is agreeable for transfer to [facility] for cardiac catheterization. Arrangements are being made. Continue IV heparin. Would given loading dose of aspirin and then start him on baby aspirin a day. Avoid 2nd antiplatelet agent till we define anatomy. Also high-intensity statin atorvastatin 80 mg daily should be prescribed. Blood pressure is currently optimized. Further treatment based on finding of cardiac catheterization. Thank you for allowing me to partake in his care Procedures Date of Service Date of Service: 12/20/23
[2023-12-20 09:53] LABS: MANUAL DIFF FLAG NO
[2023-12-20 10:02] LABS: Basophils Percent Auto 0.1 % (0-2); Eosinophils Absolute Auto 0.2 X10*3/uL (0.0-0.4); Eosinophils Percent Auto 2.5 % (0-4); Hemoglobin 12.4 g/dl (14.0-18.0); Imm Gran Abs Auto 0.03 X10*3/uL (0.00-0.03); Imm Gran Pct Auto 0.4 % (0.0-0.4); Lymphocytes Absolute Auto 1.8 X10*3/uL (1.2-4.9); Lymphocytes Percent Auto 25.4 % (20-40); Mean Corpuscular HGB Conc 34.4 g/dl (31.0-36.0); Mean Corpuscular Hemoglobin 28.4 pg (27.0-33.0); Mean Corpuscular Volume 82.4 fL (80.0-98.0); Mean Platelet Volume 10.8 fL (9.4-12.4); Monocytes Absolute Auto 0.7 X10*3/uL (0.1-1.2); Monocytes Percent Auto 9.5 % (2-11); Neutrophils Absolute Auto 4.5 x10*3/uL (2.0-8.3); Neutrophils Percent Auto 62.1 % (45-73); Platelet Count 191 X10*3/uL (160-400); Red Blood Count 4.37 X10*6/uL (4.60-5.80); Red Cell Distribution Width 12.9 % (11.0-16.0); White Blood Count 7.2 X10*3/uL (4.8-10.8)
--- NOTE | 2023-12-20 10:18 | P.DS_ITS ---
DS: Providers Provider Date of Service: 12/20/23 Date of admission: 12/19/23 19:00 Date of discharge: 12/20/23 Primary care physician: Carolina Mahajan MD Consults: 12/19/23 19:00 Consult to Cardiology Routine Consulting Provider: [facility] [place] Cardiovascular Services Reason for consultation: nstemi DS: Diagnosis Discharge Diagnosis (1) NSTEMI (non-ST elevated myocardial infarction): Status: Acute (2) Diabetes: Status: Acute (3) HTN (hypertension): Status: Acute (4) Ischemic cardiomyopathy: Status: Acute (5) Acute HFrEF (heart failure with reduced ejection fraction): Status: Acute DS: Summary Hospital Course Hospital Course: From the history and physical by the admitting hospitalist, HAWA Serrano, 12/19/23: 63-year-old male with history of hyperlipidemia, hypertension, [id number] type 2 diabetes presents to the ED earlier today for evaluation of chest pain. He reports he woke up around 915 this morning with a heavy squeezing sensation in the mid chest radiating to the axilla bilaterally. There was no associated dyspnea, lightheadedness, palpitations, diaphoresis, nausea or vomiting. He did call EMS and was given nitroglycerin with improvement in symptoms. Total duration of pain was around 3 hours. Denies any history of known cardiovascular disease and no history of heart attack. He is currently asymptomatic. Does report his mother, father, and 2 brothers of heart attacks, his father around age. On arrival, patient hypertensive to 156/82 with blood pressure 178/88 on admission. Vital signs otherwise stable. Hematology studies unremarkable. Renal function and electrolyte levels normal your glucose two hundred thirty-four. Initial troponin 492, repeat 2412. EKG shows NSR, rate 62 without acute ischemic changes. No ST/depressions. Unchanged from prior EKG earlier today. CXR unremarkable. In the ED has been given 5 units insulin, 100 mg losartan, 1 in nitroglycerin, 5 mg amlodipine, and 1000 mg of metformin. He was also initiated on heparin drip per protocol with bolus. He will be admitted for further management of NSTEMI. Was given 324 mg asa by ems and nitro. [facility]. Chest pressure resolved after NTG administration. He was started on heparin drip, high-dose atorvastatin, aspirin, and metoprol[place]. [place] [address] ng/L. Cardiology was consulted. EKG showed loss of R-wave in lead V3 concerning for LAD occlusion. Echocardiogram showed [id number] LV systolic dysfunction with mild LVH with regional wall motion abnormality in mid to distal LAD territory with impaired relaxation filling pattern. He was transferred to [facility] for cardiac catheterization. Time Attestation Discharge Coordination Time (in mins): 35 Quality: Safe Use of Opioids Does Pt have an Active Cancer Diagnosis on the Problem List?: No Quality: Stroke Does the patient have a stroke diagnosis?: No Physical Exam Vital Signs: Vital Signs: Last Vital Signs Temp 98.6 F 12/20/23 07:08 Pulse 66 12/20/23 07:08 Resp 20 12/20/23 07:08 BP 135/63 12/20/23 07:08 Pulse Ox 98 12/20/23 07:08 O2 Del Method Room Air 12/20/23 07:08 BMI result Body Mass Index 27.3 Gen: in no acute distress HEENT: sclera anicteric, moist mucus membranes Neck: supple Lungs: clear to auscultation bilaterally Heart: regular rate and rhythm, no murmurs Abd: soft, non-tender, non-distended Ext: no edema Skin: warm/well-perfused Neuro: alert and oriented x3, no focal findings Psych: appropriate affect DS: Data Data Completed and Pending Completed studies during hospitalization [Text1]: Laboratory Results WBC 7.2 X10*3/uL (4.8-10.8) 12/20/23 09:25 RBC 4.37 X10*6/uL (4.60-5.80) L 12/20/23 09:25 Hgb 12.4 g/dl (14.0-18.0) L 12/20/23 09:25 Hct 36.0 % (42.0-52.0) L 12/20/23 09:25 MCV 82.4 fL (80.0-98.0) 12/20/23 09:25 MCH 28.4 pg (27.0-33.0) 12/20/23 09:25 MCHC 34.4 g/dl (31.0-36.0) 12/20/23 09:25 RDW 12.9 % (11.0-16.0) 12/20/23 09:25 Plt Count 191 X10*3/uL (160-400) 12/20/23 09:25 MPV 10.8 fL (9.4-12.4) 12/20/23 09: Immature Gran % (Auto) 0.4 % (0.0-0.4) 12/20/23 09: Neut % (Auto) 62.1 % (45-73) 12/20/23 09: Lymph % (Auto) 25.4 % (20-40) 12/20/23 09:25 [place] % (Auto) 9.5 % (2-11) 12/20/23 09: Eos % (Auto) 2.5 % (0-4) 12/20/23 09: Baso % (Auto) 0.1 % (0-2) 12/20/23 09: Lymph # (Auto) 1.8 X10*3/uL (1.2-4.9) 12/20/23 09:25 [place] # (Auto) 0.7 X10*3/uL (0.1-1.2) 12/20/23 09:25 Eos # (Auto) 0.2 X10*3/uL (0.0-0.4) 12/20/23 09: Baso # (Auto) 0.0 X10*3/uL (0.0-0.2) 12/20/23 09:25 Abs Immat Gran (auto) 0.03 X10*3/uL (0.00-0.03) 12/20/23: Absolute Neuts (auto) 4.5 x10*3/uL (2.0-8.3) 12/20/23 09: Absolute Nucleated RBC 0.000 X10*3/uL (0.0-0.012) 12/20/23: Nucleated RBC % (auto) 0.0 /100WBC (0.0-0.2) 12/20/23: PT 10.9 SEC (11.1-13.3) L 12/19/23 17:21 INR 0.9 (0.9-1.1) 12/19/23 17:21 APTT 30.2 SEC (26.0-36.8) 12/19/23 17:21 aPTT Heparin Protocol 69.0 SEC (53-77.9) D 12/20/23 09:25 Sodium 142 mmol/L (135-145) 12/20/23 09:25 Potassium 4.4 mmol/L (3.3-5.1) 12/20/23 09:25 Chloride 109 mmol/L (96-108) H 12/20/23 09:25 Carbon Dioxide 24 mmol/L (22-29) 12/20/23 09:25 Anion Gap 13 (12-20) 12/20/23 09:25 BUN 17 mg/dL (9-16) H 12/20/23 09:25 Creatinine 1.41 mg/dL (0.5-1.4) H 12/20/23 09:25 Estim Creat Clear Calc 46.5 12/20/23 09:25 Estimated GFR 51 12/20/23 09:25 POC Glucose 308 mg/dL (60-115) H 12/20/23 07:13 Random Glucose 164 mg/dL (60-115) H 12/20/23 09:25 Estimat Average Glucose 223 mg/dL 12/19/23 15:42 Hemoglobin A1c % 9.4 % (<6.0) H 12/19/23 15:42 Calcium 9.3 mg/dL (8.4-10.2) 12/20/23 09:25 Total Bilirubin 0.4 mg/dL (0.0-1.0) 12/19/23 15:42 AST 16 U/L (5-37) 12/19/23 15:42 ALT 15 U/L (0-40) 12/19/23 15:42 Alkaline Phosphatase 115 U/L (39-117) 12/19/23 15:42 Troponin I High Sens 51427.1 ng/L (<3.5-35.0) H* D 12/20/23 09:25 Total Protein 7.8 g/dL (6.5-8.0) 12/19/23 15:42 Albumin 4.2 g/dL (3.5-5.0) 12/19/23 15:42 Triglycerides 166 mg/dL (<150) H 12/19/23 15:42 Cholesterol 200 mg/dL (<200) H 12/19/23 15:42 LDL Cholesterol, Calc 121 mg/dL (<100) H 12/19/23 15:42 HDL Cholesterol 46 mg/dL (>40) 12/19/23 15:42 Impressions Chest X-Ray 12/19/23 16:25 IMPRESSION: No evidence for acute disease in the chest. Discharge Plan Discharge Anticipated Discharge Date/Time: 12/20/23 10:15 Patient Disposition: [facility] Discharge Diagnosis: NSTEMI Referrals: Carolina Siddiqi MD [Primary Care Provider] - 1 Week Discharge Medications: New atorvastatin 80 mg Tablet 80 mg PO DAILY Qty: 1 0RF aspirin 81 mg Tablet,Chewable 81 mg PO DAILY Qty: 1 0RF insulin lispro [Admelog U-100 Insulin lispro] 100 unit/mL Solution See Protocol subcut QIDACHS Qty: 1 0RF Protocol: Insulin Correction Scale Less than or equal to 110 ---- Give (units): 0 111 to 150 Give (units): 0 151 to 200 Give (units): 2 201 to 250 Give (units): 4 251 to 300 Give (units): 6 301 to 350 Give (units): 8 Greater than 350 Give (units): 10 Call if Blood Glucose > : 350 heparin (porcine) 5,000 unit/mL Solution 5,600 unit IVPUSH PROTOCOL BOLUS PRN (Reason: 80 Unit/Kg - Heparin Protocol) Qty: 1 0RF heparin (porcine) 5,000 unit/mL Solution 2,800 unit IVPUSH PROTOCOL BOLUS PRN (Reason: 40 Unit/Kg - Heparin Protocol) Qty: 1 0RF metoprolol tartrate 25 mg Tablet 25 mg PO BID Qty: 1 0RF Protocol: Hold for SBP/HR < HOLD for SBP < : 90 HOLD for HR < : 60 heparin(porcine) in 0.45% NaCl 25,000 unit/250 mL Parenteral Solution 25,000 unit continuous IV infusion .Q0M Qty: 1 0RF Continued (DME) blood-glucose meter [Freestyle InsuLinx] Misc See Rx Instructions .Route Qty: 1 2RF Rx Instructions: As directed (DME) Freestyle Insu[employer]x Strip See Rx Instructions .Route Qty: 50 2RF Rx Instructions: As directed (DME) lancets [FreeStyle Lancets] 28 gauge misc See Rx Instructions .Route Qty: 100 2RF Rx Instructions: As directed amlodipine 5 mg tablet 5 mg PO QAM Jardiance 10 mg tablet 10 mg PO QAM Discontinued metformin 500 mg tablet 500 mg PO BID Qty: 60 1RF losartan-hydrochlorothiazide 100-25 mg tablet 1 tab PO QAM Discharge Orders: Discharge Order (Routine); Ordered 12/20/23 Ordered By: Jameel Wong Diet: Diabetic diet Activity on Discharge: As tolerated Stand Alone Forms: Patient Portal Discharge page Print Language: Anguillan Care Plan Goals: cardiac health Health Concerns: NSTEMI Plan of Treatment: transfer to [facility] for cardiac catheterization Assessment: See Discharge Summary.
[2023-12-20 10:19] LABS: Anion Gap 13 (12-20); Blood Urea Nitrogen 17 mg/dL (9-16); Calcium 9.3 mg/dL (8.4-10.2); Carbon Dioxide 24 mmol/L (22-29); Chloride 109 mmol/L (96-108); Creatinine Clr Calc Pharmacy 46.5; Estimated Glomerular Filt Rate 51; Glucose Random 164 mg/dL (60-115); Potassium 4.4 mmol/L (3.3-5.1); Sodium 142 mmol/L (135-145)
--- NOTE | 2023-12-20 10:20 | MHC.CM.PN ---
CM attempted to see pt this am, he is receiving treatment. DC plan is for pt to be transferred to [facility] today for cardiac care there.
[2023-12-20 11:12] LABS: Glucose, Whole Blood 87 mg/dL (60-115)
[2023-12-20 11:32] VITALS: BP 121/58; PULSE 57; RESP 20; TEMP 36.6; O2SAT 98
[2023-12-20] MEDS: Aspirin 325 MG TABLET PO (12:18)
[2023-12-20 15:24] LABS: PTT Heparin Drip 57.6 SEC (53-77.9)
== END 2023-12-20 15:36 | disposition short-term general hospital (02) | DRG 190 ==
LOC: HO.ED 18:31 → HO.EDOVER 19:12 → HO.IMC 12-20 03:02
PROVIDERS: Emergency Medicine; Student in an Organized Health Care Education/Training Program; Admitting Provider Physician Assistant; Emergency Provider Internal Medicine; PCP Internal Medicine; Visit Provider Family Medicine
DX: I21.4 Non-ST elevation (NSTEMI) myocardial infarction (principal); E11.65 Type 2 diabetes mellitus with hyperglycemia; E78.5 Hyperlipidemia, unspecified; I10 Essential (primary) hypertension; Z79.4 Long term (current) use of insulin; Z79.85 Long-term (current) use of injectable non-insulin antidiabetic drugs; Z79.899 Other long term (current) drug therapy
CPT/HCPCS: 36415; 71045; 80048; 80053; 80061; 82947; 83036; 84484; 85025; 85610; 85730; 93005; 93306; 99285; J1644; Q9957

== ENCOUNTER 2023-12-19 19:00 | Outpatient (BNV) | payer MEDICAID, SELFPAY | END 2023-12-20 07:00 | PROVIDERS: Admitting Provider Physician Assistant; Emergency Provider Internal Medicine; PCP Internal Medicine; Visit Provider Internal Medicine Cardiovascular Disease | DX: I35.1 Nonrheumatic aortic (valve) insufficiency (principal) | CPT/HCPCS: 93306 ==

== ENCOUNTER → 2023-12-19 19:00 | Outpatient (BNV) | payer MEDICAID, SELFPAY | PROVIDERS: Admitting Provider Physician Assistant; Emergency Provider Internal Medicine; PCP Internal Medicine; Visit Provider Internal Medicine Cardiovascular Disease | DX: I21.4 Non-ST elevation (NSTEMI) myocardial infarction (principal); R94.31 Abnormal electrocardiogram [ECG] [EKG] | CPT/HCPCS: 93010; 99222 ==

== ENCOUNTER → 2023-12-19 19:00 | Outpatient (BNV) | payer MEDICAID, SELFPAY | PROVIDERS: Admitting Provider Physician Assistant; Emergency Provider Internal Medicine; PCP Internal Medicine; Visit Provider Physician Assistant | DX: I21.4 Non-ST elevation (NSTEMI) myocardial infarction (principal); E11.9 Type 2 diabetes mellitus without complications; I10 Essential (primary) hypertension; I25.5 Ischemic cardiomyopathy; I50.21 Acute systolic (congestive) heart failure | CPT/HCPCS: 99223; 99239 ==

== ENCOUNTER → 2023-12-21 23:59 | Outpatient (BNV) | payer MEDICAID, SELFPAY | PROVIDERS: PCP Internal Medicine; Visit Provider Internal Medicine Cardiovascular Disease | DX: I21.4 Non-ST elevation (NSTEMI) myocardial infarction (principal) | CPT/HCPCS: 92928; 92929; 93458; 99152 ==

== ENCOUNTER 2023-12-26 12:55 | Emergency (ER) | payer MEDICAID, SELFPAY ==
--- NOTE | 2023-12-26 12:57 | ECG_ITS ---
Test Reason : cp Blood Pressure : / mmHG Vent. Rate : 054 BPM Atrial Rate : 054 BPM P-R Int : 138 ms QRS Dur : 092 ms QT Int : 400 ms P-R-T Axes : -02 089 056 degrees QTc Int : 379 ms Sinus bradycardia Anterior infarct (cited on or before 19-DEC-2023) Inferolateral injury pattern ACUTE HI / STEMI Abnormal ECG When compared with ECG of 19-DEC-2023 17:53, Significant changes have occurred Referred By: Generic ED Physician Electronically Signed By:WEN HENRIQUEZ
--- NOTE | 2023-12-26 13:00 | PC.NURSE ---
Pt presents to ED room, STEMI alert from triage. Pt was dropped off by his daughter today. Pt is Israeli speaking only, brick setter operator at bedside. Pt reports 10/10 chest pain radiating to left side, hard to describe the pain. Pt had recent NSTEMI on 12/18, reports he got 2 stents placed at [facility]. Pt is alert and oriented, breathing elevated, skin diaphoretic and pale. Pt appears obviously uncomfortable. Pt placed on bedside teletypesetter monitor, NSR. Vitals monitored and stable. Provider at bedside. Bilateral 20G IVs placed and pt medicated per NOV.
[2023-12-26 13:04] VITALS: BP 121/70; PULSE 68; RESP 20; TEMP 36.6; O2SAT 100; BMI 22.3
[2023-12-26] MEDS: Ticagrelor 90 MG TABLET 180 MG PO (13:13)
[2023-12-26] MEDS: Aspirin Enteric Coated 81 MG TABLET.DR 162 MG PO (13:13)
[2023-12-26] MEDS: Heparin Sodium,Porcine 5,000 UNIT/ML VIAL 5000 UNIT IVPUSH (13:13)
--- NOTE | 2023-12-26 13:15 | PC.NURSE ---
EMS at bedside, report given to roll picker crew. Pt transferred over to EMS. Pt reports feeling a little better after medications. Pt still appeared diaphoretic, vital signs stable.
[2023-12-26 13:16] VITALS: BP 162/78; PULSE 59; RESP 20
--- NOTE | 2023-12-26 13:16 | ED.CHESTPAIN ---
HPI - Chest Pain General Chief Complaint: Chest Pain Stated Complaint: Chest Pain Time Seen by Provider: 12/26/23 13:03 Source: patient and family Mode of arrival: ambulatory Limitations: language barrier History of Present Illness HPI narrative: History through resource paraprofessional. Was seen in [place] on 12/18 sent to [facility] with NSTEMI, received 2 stents. Now with sudden chest pain, EKG show stemi. Positive shortness of breath and diaphoresis MD complaint: chest pain Pertinent past history: coronary artery disease Onset (ago): minute(s) Timing of current episode: constant Risk Factors Coronary artery disease risk factors: diabetes, smoking history, hyperlipidemia and hypertension Related Data Home Medications ?Medication ?Instructions ?Recorded ?Confirmed amlodipine 5 mg tablet 5 mg PO QAM 12/19/23 12/19/23 empagliflozin 10 mg tablet 10 mg PO QAM 12/19/23 12/19/23 (Jardiance) Previous Rx's ?Medication ?Instructions ?Recorded blood sugar diagnostic (Freestyle #50 ea 07/06/21 [employer] strips) blood-glucose meter (Freestyle #1 ea 07/06/21 [employer] meter) lancets 28 gauge (FreeStyle #100 ea 07/06/21 Lancets) aspirin 81 mg chewable tablet 81 mg PO DAILY #1 tab 12/20/23 atorvastatin 80 mg tablet 80 mg PO DAILY #1 tab 12/20/23 heparin (porcine) 25,000 unit/250 25,000 unit (250 mL) continuous IV 12/20/23 mL in 0.45 % sodium chloride IV infusion .Q0M #1 mL soln heparin (porcine) 5,000 unit/mL 2,800 unit (0.56 mL) IVPUSH 12/20/23 injection solution PROTOCOL BOLUS PRN 40 Unit/Kg - Heparin Protocol #1 mL heparin (porcine) 5,000 unit/mL 5,600 unit (1.12 mL) IVPUSH 12/20/23 injection solution PROTOCOL BOLUS PRN 80 Unit/Kg - Heparin Protocol #1 mL insulin lispro 100 unit/mL See Protocol subcut QIDACHS #1 mL 12/20/23 subcutaneous solution (Admelog U-100 Insulin lispro) metoprolol tartrate 25 mg tablet 25 mg PO BID #1 tab 12/20/23 Allergies Allergy/AdvReac Type Severity Reaction Status Date / Time No Known Allergies Allergy Verified 12/26/23 13:10 Review of Systems Review of Systems: Yes all other systems are reviewed and are negative Neurologic: Denies Sensory deficit (Neuro) [facility] Past Medical History Medical History HLD (hyperlipidemia) HTN (hypertension) Diabetes Surgical History Hx of appendectomy Social History Social History Household Members: None Housing: Apartment Do you presently have visiting nurse or other home services: No Patient Tobacco Use Status: Tobacco use Unknown Physical Exam Vital Signs: Vital Signs: Last Vital Signs Temp 97.8 F 12/26/23 13:04 Pulse 60 12/26/23 13:18 Resp 20 12/26/23 13:16 BP 162/78 H 12/26/23 13:18 Pulse Ox 100 12/26/23 13:04 O2 Del Method Room Air 12/26/23 13:04 BMI result Body Mass Index 22.3 Const: Other: diaphoretic male looking unwell Nutritional Appearance: average body habitus Orientation/consciousness: oriented to person and patient oriented x3 Limitations: no limitations HEENT: Head: Yes normal to inspection Ears: external ears normal General nose exam: Normal external nose present Mouth: Normal oral and palatal mucosa present and oropharynx normal Throat: Yes posterior oropharynx normal Eyes: General: appearance normal, both eyes and all related structures Neck: Other: supple Neck: Yes normal visual inspection Chest: Chest palpation & inspection: normal inspection of the chest Resp: Auscultation: clear to auscultation bilaterally Cardio: Jugular venous distension: no JVD Rate: regular rate Rhythm: regular rhythm Heart sounds: S1 normal heart sound present and S2 normal heart sound present GI: Inspection: Yes normal to inspection Palpation (GI): Soft to palpation, nontender and No hepatosplenomegaly present Auscultation: normal bowel sounds : General: Yes no CVA tenderness Back/Spine/Pelvis: Back: no CVA tenderness Skin: General skin exam: no rashes or lesions noted Neuro: General: oriented to person and patient oriented x3 Cranial nerves: Yes CN's II-XII intact bilaterally Motor exam (neuro): 5/5 motor strength present throughout Sensory Exam: No Sensory deficit (Neuro) Extrem: General: Yes normal to inspection Psych: Appearance: grossly normal Course Reevaluation(s) Reevaluation #1: Accepted by Dr. Keith robles for immediate cath Time: 13:21 Reevaluation #2: I spent 32 minutes of critical care, with interventions, assessments, speaking to patient, consultants, and family. Time: 13:24 Medications Administered Generic Name Dose Route Start Last Admin Trade Name Freq PRN Reason Stop Dose Admin Aspirin 162 mg 12/26/23 13:15 12/26/23 13:13 Aspirin Enteric Coated 81 Mg Tablet. PO 162 mg DAILY RAUDEL Administration Nitroglycerin 0.4 mg 12/26/23 13:04 12/26/23 13:18 Nitroglycerin 0.4 Mg Tab.Subl SUBLINGUAL 0.4 mg [id number] PRN Administration Chest Pain Discontinued Medications Generic Name Dose Route Start Last Admin Trade Name Freq PRN Reason Stop Dose Admin Heparin Sodium (Porcine) 5,000 unit 12/26/23 13:03 12/26/23 13:13 Heparin Sodium,Porcine 5,000 Unit/Ml Vial IVPUSH 12/26/23 13:04 5,000 unit ONCE ONE Administration Ticagrelor 180 mg 12/26/23 13:03 12/26/23 13:13 Ticagrelor 90 Mg Tablet PO 12/26/23 13:04 180 mg ONCE ONE Administration Medical Decision Making Differential Diagnosis Differential Diagnoses: The differential diagnosis associated with the presentation includes (STEMI) Admission/Observation Consideration of admission/observation: Escalation of care including admission/observation considered (Upon arrival immediate admission) Consult Healthcare Provider Management of the patient was discussed with: Customer Service Sales Consultant ([facility]) Independent Interpretation I performed an independent interpretation of an: EKG (sinus 67, ST ELEVATIon II, III, AVF, V4 and V5) Independent Historian Clinical information obtained from an independent historian. 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 Prescriptions: No Action (DME) blood-glucose meter [Freestyle [employer]] Misc See Rx Instructions .Route Qty: 1 2RF Rx Instructions: As directed (DME) Freestyle [employer] Strip See Rx Instructions .Route Qty: 50 2RF Rx Instructions: As directed (DME) lancets [FreeStyle Lancets] 28 gauge misc See Rx Instructions .Route Qty: 100 2RF Rx Instructions: As directed amlodipine 5 mg tablet 5 mg PO QAM Jardiance 10 mg tablet 10 mg PO QAM atorvastatin 80 mg Tablet 80 mg PO DAILY Qty: 1 0RF aspirin 81 mg Tablet,Chewable 81 mg PO DAILY Qty: 1 0RF insulin lispro [Admelog U-100 Insulin lispro] 100 unit/mL Solution See Protocol subcut QIDACHS Qty: 1 0RF Protocol: Insulin Correction Scale Less than or equal to 110 ---- Give (units): 0 111 to 150 Give (units): 0 151 to 200 Give (units): 2 201 to 250 Give (units): 4 251 to 300 Give (units): 6 301 to 350 Give (units): 8 Greater than 350 Give (units): 10 Call MD if Blood Glucose > : 350 heparin (porcine) 5,000 unit/mL Solution 5,600 unit IVPUSH PROTOCOL BOLUS PRN (Reason: 80 Unit/Kg - Heparin Protocol) Qty: 1 0RF heparin (porcine) 5,000 unit/mL Solution 2,800 unit IVPUSH PROTOCOL BOLUS PRN (Reason: 40 Unit/Kg - Heparin Protocol) Qty: 1 0RF metoprolol tartrate 25 mg Tablet 25 mg PO BID Qty: 1 0RF Protocol: Hold for SBP/HR < HOLD for SBP < : 90 HOLD for HR < : 60 heparin(porcine) in 0.45% NaCl 25,000 unit/250 mL Parenteral Solution 25,000 unit continuous IV infusion .Q0M Qty: 1 0RF Print Language: Luxembourgish
[2023-12-26 13:18] VITALS: BP 162/78; PULSE 60
[2023-12-26] MEDS: Nitroglycerin 0.4 MG TAB.SUBL SUBLINGUAL (13:18)
[2023-12-26 13:25] LABS: Basophils Percent Auto 0.1 % (0-2); Eosinophils Absolute Auto 0.2 X10*3/uL (0.0-0.4); Eosinophils Percent Auto 2.7 % (0-4); Hematocrit 34.7 % (42.0-52.0); Imm Gran Abs Auto 0.02 X10*3/uL (0.00-0.03); Imm Gran Pct Auto 0.3 % (0.0-0.4); Lymphocytes Absolute Auto 2.7 X10*3/uL (1.2-4.9); Lymphocytes Percent Auto 33.7 % (20-40); MANUAL DIFF FLAG NO; Mean Corpuscular HGB Conc 34.6 g/dl (31.0-36.0); Mean Corpuscular Hemoglobin 28.1 pg (27.0-33.0); Mean Corpuscular Volume 81.3 fL (80.0-98.0); Mean Platelet Volume 10.8 fL (9.4-12.4); Monocytes Absolute Auto 0.7 X10*3/uL (0.1-1.2); Monocytes Percent Auto 9.1 % (2-11); Neutrophils Absolute Auto 4.3 x10*3/uL (2.0-8.3); Neutrophils Percent Auto 54.1 % (45-73); Platelet Count 249 X10*3/uL (160-400); Red Blood Count 4.27 X10*6/uL (4.60-5.80); White Blood Count 7.9 X10*3/uL (4.8-10.8)
--- NOTE | 2023-12-26 13:38 | PC.NURSE ---
Report given to Isadora COX at [facility] Due Diligence Coordinator.
[2023-12-26 13:40] VITALS: BP 164/78; PULSE 68; RESP 20; TEMP 36.6; O2SAT 98
[2023-12-26 19:03] LABS: Anion Gap 14 (12-20); Blood Urea Nitrogen 10 mg/dL (9-16); Calcium 9.8 mg/dL (8.4-10.2); Carbon Dioxide 23 mmol/L (22-29); Chloride 109 mmol/L (96-108); Creatinine Clr Calc Pharmacy 45.8; Estimated Glomerular Filt Rate 46; Glucose Random 246 mg/dL (60-115); Sodium 142 mmol/L (135-145)
== END 2023-12-26 13:41 | disposition short-term general hospital (02) ==
PROVIDERS: Emergency Provider Emergency Medicine; PCP Internal Medicine
DX: I21.3 ST elevation (STEMI) myocardial infarction of unspecified site (principal); I10 Essential (primary) hypertension; E11.9 Type 2 diabetes mellitus without complications; Z95.5 Presence of coronary angioplasty implant and graft
CPT/HCPCS: 36415; 80048; 85025; 93005; 96374; 99285; J1644

== ENCOUNTER → 2023-12-26 12:57 | Outpatient (BNV) | payer MEDICAID, SELFPAY | PROVIDERS: Emergency Provider Emergency Medicine; PCP Internal Medicine; Visit Provider Internal Medicine | DX: R00.1 Bradycardia, unspecified (principal) | CPT/HCPCS: 93010 ==

== ENCOUNTER 2024-01-06 18:51 | Emergency (ER) | payer MEDICAID, SELFPAY ==
--- NOTE | 2024-01-06 | ECG_ITS ---
Test Reason : CHEST PAIN Blood Pressure : / mmHG Vent. Rate : 084 BPM Atrial Rate : 084 BPM P-R Int : 148 ms QRS Dur : 094 ms QT Int : 362 ms P-R-T Axes : 061 -45 050 degrees QTc Int : 427 ms Normal sinus rhythm Left anterior fascicular block Anteroseptal infarct (cited on or before 19-DEC-2023) ACUTE KS / STEMI Abnormal ECG When compared with ECG of 26-DEC-2023 12:57, Vent. rate has increased BY 30 BPM Left anterior fascicular block is now Present Serial changes of evolving Anteroseptal infarct Present Referred By: Oilvier Wu Electronically Signed By:RON POWELL MD
[2024-01-06 19:10] VITALS: BP 137/74; PULSE 85; RESP 16; O2SAT 97; BMI 27.7
--- NOTE | 2024-01-06 19:14 | ED_ITS ---
HPI - General Adult General Chief complaint: Nausea/Vomiting/Diarrhea Stated complaint: vomiting, weakness Time Seen by Provider: 01/06/24 19:19 Source: patient Mode of arrival: ambulatory Limitations: no limitations History of Present Illness HPI narrative: Patient history of hypertension hyperlipidemia diabetes status post STEMI and stent placed on 12/19/23 was seen here again on 12/25 and sent to [facility] and at that time 1 of the stent was occluded patient is Brilinta and aspirin. Since he was discharged last time patient not feeling good poor oral intake for last 2 days feeling more nauseated and whenever he eats throws up denies any shortness of breath or chest pain on arrival EKG was done which showed ST-elevation without any Q-waves in inferior leads 2, 3 AVF Related Data Home Medications ?Medication ?Instructions ?Recorded ?Confirmed amlodipine 5 mg tablet 5 mg PO QAM 12/19/23 12/19/23 empagliflozin 10 mg tablet 10 mg PO QAM 12/19/23 12/19/23 (Jardiance) Previous Rx's ?Medication ?Instructions ?Recorded blood sugar diagnostic (Freestyle #50 ea 07/06/21 [employer] strips) blood-glucose meter (Freestyle #1 ea 07/06/21 [employer] meter) lancets 28 gauge (FreeStyle #100 ea 07/06/21 Lancets) aspirin 81 mg chewable tablet 81 mg PO DAILY #1 tab 12/20/23 atorvastatin 80 mg tablet 80 mg PO DAILY #1 tab 12/20/23 heparin (porcine) 25,000 unit/250 25,000 unit (250 mL) continuous IV 12/20/23 mL in 0.45 % sodium chloride IV infusion .Q0M #1 mL soln heparin (porcine) 5,000 unit/mL 2,800 unit (0.56 mL) IVPUSH 12/20/23 injection solution PROTOCOL BOLUS PRN 40 Unit/Kg - Heparin Protocol #1 mL heparin (porcine) 5,000 unit/mL 5,600 unit (1.12 mL) IVPUSH 12/20/23 injection solution PROTOCOL BOLUS PRN 80 Unit/Kg - Heparin Protocol #1 mL insulin lispro 100 unit/mL See Protocol subcut QIDACHS #1 mL 12/20/23 subcutaneous solution (Admelog U-100 Insulin lispro) metoprolol tartrate 25 mg tablet 25 mg PO BID #1 tab 12/20/23 Allergies Allergy/AdvReac Type Severity Reaction Status Date / Time No Known Allergies Allergy Verified 01/06/24 19:13 Review of Systems 2 Review of Systems: Yes all other systems are reviewed and are negative [facility] Past Medical History Medical History (Updated 01/06/24 @ 20:09 by Olivier Wu MD) HLD (hyperlipidemia) HTN (hypertension) Diabetes Surgical History (Updated 01/06/24 @ 19:45 by Olivier Wu MD) H/O heart artery stent Hx of appendectomy Social History Social History Household Members: None Housing: Apartment Do you presently have visiting nurse or other home services: No Patient Tobacco Use Status: Tobacco use Unknown Smoked in Last 30 Days: No Use of substances other than those prescribed or required for medical reasons: No Advance Directives: No Advance Directives Information Provided: No Physical Exam ED Vital Signs: Vital Signs - 24 hr 01/06/24 19:10 01/06/24 19:37 Temperature 98.3 F Pulse Rate 85 81 Respiratory Rate 16 24 H Blood Pressure 137/74 148/73 H Pulse Oximetry 97 95 Oxygen Delivery Method Room Air Room Air BMI result Body Mass Index 27.8 Appearance: Alert. Oriented X3. No acute distress. Eyes: No pallor or icterus ENT: Pharynx normal. Oral Mucosa moist Neck: Normal inspection. Neck supple. CVS: Normal heart rate and rhythm. Pulses normal. Respiratory: No respiratory distress. Equal air entry bilateral, no wheezing/rales/rhonchi Abdomen: Soft and nontender. Bowel sounds are present, no mass palpable, no CVA tenderness Skin: Skin warm and dry. Normal skin color. Normal skin turgor. Extremities: No lower extremity edema. No calf tenderness Neuro: Oriented X 3. No motor deficit. Course Course Course Narrative: RME performed by Selina Canas PA-C. Patient is a 63 year old assigned male at presenting to the emergency department with abdominal pain and unable to eat. Patient states that over the last few weeks he had multiple heart attacks and a bleeding out event . Patient states that ever since he was discharged from [facility], his stomach has hurt and he has been unable to eat. Patient states that he is having normal bowel movements. Detailed physical exam and review of systems are deferred to the chief guard. Labs ordered. Patient placed back in the waiting room pending room availability and results. Medications Administered Generic Name Dose Route Start Last Admin Trade Name Freq PRN Reason Stop Dose Admin Heparin Sodium/Sodium Chloride 25,000 unit in 250 mls @ 0 mls/hr 01/06/24 20:15 01/06/24 20:16 Heparin Sodium,Porcine/1/2ns IVCONT 12 units/kg/hr .Q0M RAUDEL 8.56 mls/hr Administration Protocol Per Protocol Discontinued Medications Generic Name Dose Route Start Last Admin Trade Name Freq PRN Reason Stop Dose Admin Heparin Sodium (Porcine) 5,000 unit 01/06/24 19:39 01/06/24 19:43 Heparin Sodium,Porcine 5,000 Unit/Ml Vial IVPUSH 01/06/24 19:40 5,000 unit ONCE ONE Administration Ondansetron HCl 4 mg 01/06/24 20:06 01/06/24 20:09 Ondansetron Hcl 4 Mg/2 Ml Vial IVPUSH 01/06/24 20:07 4 mg ONCE ONE Administration Medical Decision Making Medical Decision Making [facility] Narrative: Patient with ST elevation in lead 1 lead AVF and V5 V6 case discussed with Dr. Garza intervention application programmer analyst at [facility] who reviewed the EKG at the time of discharge on 12/25 which showed similar changes more pronounced at that time. 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 Faulkner application programmer analyst at [facility] will take the patient to CCU patient has been started on heparin drip troponin is elevated to 1800 it was [id number] on 12/19 Differential Diagnosis Differential Diagnoses: The differential diagnosis associated with the presentation includes STEMI/non-STEMI/gastritis Lab Data [facility] Lab Attestation statement: I reviewed the patient's lab results. 01/06/24 19:32 01/06/24 19:32 Labs: Lab Results 01/06/24 01/06/24 Range/Units 19:32 19:35 WBC 7.7 (4.8-10.8) X10*3/uL RBC 3.56 L (4.60-5.80) X10*6/uL Hgb 9.9 L (14.0-18.0) g/dl Hct 28.7 L (42.0-52.0) % MCV 80.6 (80.0-98.0) fL MCH 27.8 (27.0-33.0) pg MCHC 34.5 (31.0-36.0) g/dl RDW 13.4 (11.0-16.0) % Plt Count 367 D (160-400) X10*3/uL MPV 10.7 (9.4-12.4) fL Immature Gran % (Auto) 0.4 (0.0-0.4) % Neut % (Auto) 70.6 (45-73) % Lymph % (Auto) 14.3 L (20-40) % [place] % (Auto) 12.9 H (2-11) % Eos % (Auto) 1.7 (0-4) % Baso % (Auto) 0.1 (0-2) % Lymph # (Auto) 1.1 L (1.2-4.9) X10*3/uL [place] # (Auto) 1.0 (0.1-1.2) X10*3/uL Eos # (Auto) 0.1 (0.0-0.4) X10*3/uL Baso # (Auto) 0.0 (0.0-0.2) X10*3/uL Abs Immat Gran (auto) 0.03 (0.00-0.03) X10*3/uL Absolute Neuts (auto) 5.4 (2.0-8.3) x10*3/uL Absolute Nucleated RBC 0.000 (0.0-0.012) X10*3/uL Nucleated RBC % (auto) 0.0 (0.0-0.2) /100WBC PT 14.3 H D (11.1-13.3) SEC INR 1.2 H (0.9-1.1) APTT 33.2 (26.0-36.8) SEC Sodium 142 (135-145) mmol/L Potassium 4.4 (3.3-5.1) mmol/L Chloride 107 (96-108) mmol/L Carbon Dioxide 23 (22-29) mmol/L Anion Gap 16 (12-20) BUN 11 (9-16) mg/dL Creatinine 1.82 H (0.5-1.4) mg/dL Estim Creat Clear Calc 36.2 Estimated GFR 38 Random Glucose 179 H (60-115) mg/dL Calcium 9.3 (8.4-10.2) mg/dL Magnesium 2.2 (1.6-2.6) mg/dL Total Bilirubin 0.7 (0.0-1.0) mg/dL AST 34 (5-37) U/L ALT 38 (0-40) U/L Alkaline Phosphatase 82 (39-117) U/L Troponin I High Sens 1805.6 H* D (<3.5-35.0) ng/L Total Protein 7.8 (6.5-8.0) g/dL Albumin 3.7 (3.5-5.0) g/dL Influenza Type A (PCR) NEGATIVE (Negative) Influenza Type B (PCR) NEGATIVE (Negative) RSV RNA Qual (PCR) NEGATIVE (Negative) SARS-CoV-2 RNA (RT-PCR) NEGATIVE (Negative) Independent Interpretation I performed an independent interpretation of an: EKG Interpretation: Normal sinus rhythm heart rate of [address]-elevation in lead 1 lead aVL about 3 mm COVID without any Q-waves ST depression in lead 3 impression inferior wall [place] Discharge Plan Discharge Clinical Impression: Non-ST elevated myocardial infarction (non-STEMI) Patient Disposition: [facility] Transfer Details: To [facility] MM3 bed number [address] Faulkner Prescriptions: No Action (DME) blood-glucose meter [Freestyle [employer]] Misc See Rx Instructions .Route Qty: 1 2RF Rx Instructions: As directed (DME) Freestyle [employer] Strip See Rx Instructions .Route Qty: 50 2RF Rx Instructions: As directed (DME) lancets [FreeStyle Lancets] 28 gauge misc See Rx Instructions .Route Qty: 100 2RF Rx Instructions: As directed amlodipine 5 mg tablet 5 mg PO QAM Jardiance 10 mg tablet 10 mg PO QAM atorvastatin 80 mg Tablet 80 mg PO DAILY Qty: 1 0RF aspirin 81 mg Tablet,Chewable 81 mg PO DAILY Qty: 1 0RF insulin lispro [Admelog U-100 Insulin lispro] 100 unit/mL Solution See Protocol subcut QIDACHS Qty: 1 0RF Protocol: Insulin Correction Scale Less than or equal to 110 ---- Give (units): 0 111 to 150 Give (units): 0 151 to 200 Give (units): 2 201 to 250 Give (units): 4 251 to 300 Give (units): 6 301 to 350 Give (units): 8 Greater than 350 Give (units): 10 Call MD if Blood Glucose > : 350 heparin (porcine) 5,000 unit/mL Solution 5,600 unit IVPUSH PROTOCOL BOLUS PRN (Reason: 80 Unit/Kg - Heparin Protocol) Qty: 1 0RF heparin (porcine) 5,000 unit/mL Solution 2,800 unit IVPUSH PROTOCOL BOLUS PRN (Reason: 40 Unit/Kg - Heparin Protocol) Qty: 1 0RF metoprolol tartrate 25 mg Tablet 25 mg PO BID Qty: 1 0RF Protocol: Hold for SBP/HR < HOLD for SBP < : 90 HOLD for HR < : 60 heparin(porcine) in 0.45% NaCl 25,000 unit/250 mL Parenteral Solution 25,000 unit continuous IV infusion .Q0M Qty: 1 0RF Print Language: Citizen Of [place]
[2024-01-06 19:37] VITALS: BP 148/73; PULSE 81; RESP 24; TEMP 36.8; O2SAT 95
[2024-01-06 19:39] LABS: MANUAL DIFF FLAG NO
[2024-01-06 19:41] LABS: Basophils Percent Auto 0.1 % (0-2); Eosinophils Absolute Auto 0.1 X10*3/uL (0.0-0.4); Eosinophils Percent Auto 1.7 % (0-4); Hematocrit 28.7 % (42.0-52.0); Hemoglobin 9.9 g/dl (14.0-18.0); Imm Gran Abs Auto 0.03 X10*3/uL (0.00-0.03); Imm Gran Pct Auto 0.4 % (0.0-0.4); Lymphocytes Absolute Auto 1.1 X10*3/uL (1.2-4.9); Lymphocytes Percent Auto 14.3 % (20-40); Mean Corpuscular HGB Conc 34.5 g/dl (31.0-36.0); Mean Corpuscular Hemoglobin 27.8 pg (27.0-33.0); Mean Corpuscular Volume 80.6 fL (80.0-98.0); Mean Platelet Volume 10.7 fL (9.4-12.4); Monocytes Percent Auto 12.9 % (2-11); Neutrophils Absolute Auto 5.4 x10*3/uL (2.0-8.3); Neutrophils Percent Auto 70.6 % (45-73); Platelet Count 367 X10*3/uL (160-400); Red Blood Count 3.56 X10*6/uL (4.60-5.80); Red Cell Distribution Width 13.4 % (11.0-16.0); White Blood Count 7.7 X10*3/uL (4.8-10.8)
[2024-01-06] MEDS: Heparin Sodium,Porcine 5,000 UNIT/ML VIAL 5000 UNIT IVPUSH (19:43)
[2024-01-06 19:46] LABS: INTERNATIONAL NORM RATIO 1.2 (0.9-1.1); Prothrombin Time 14.3 SEC (11.1-13.3)
[2024-01-06 19:49] LABS: Partial Thromboplastin Time 33.2 SEC (26.0-36.8)
--- NOTE | 2024-01-06 19:49 | PC.NURSE ---
Pt aox4 resting at the bedside. Recent cardiac history at [facility] with stent placement. Presented reporting intermittent N/V, weakness, and decreased po intake. Denies chest pain or sob at this time. EKG shows acute stemi. 20G IV line bilateral ac's. 5000u of Heparin administered per MD order. Pt placed on director of cardiac rehabilitation. O2 at 95% RA. Pending lab results. Monitoring is ongoing.
[2024-01-06 19:58] LABS: Alanine Aminotransferase 38 U/L (0-40); Albumin Level 3.7 g/dL (3.5-5.0); Alkaline Phosphatase 82 U/L (39-117); Anion Gap 16 (12-20); Aspartate Amino Transferase 34 U/L (5-37); Bilirubin Total 0.7 mg/dL (0.0-1.0); Blood Urea Nitrogen 11 mg/dL (9-16); Calcium 9.3 mg/dL (8.4-10.2); Carbon Dioxide 23 mmol/L (22-29); Chloride 107 mmol/L (96-108); Creatinine Clr Calc Pharmacy 36.2; Estimated Glomerular Filt Rate 38; Glucose Random 179 mg/dL (60-115); Magnesium 2.2 mg/dL (1.6-2.6); Potassium 4.4 mmol/L (3.3-5.1); Sodium 142 mmol/L (135-145); Total Protein 7.8 g/dL (6.5-8.0)
[2024-01-06 20:05] VITALS: BMI 27.8
[2024-01-06] MEDS: ondansetron HCL 4 MG/2 ML VIAL IVPUSH (20:09)
[2024-01-06] MEDS: Heparin Sodium,Porcine/1/2NS 25,000 UNIT/250 ML IV.SOLN 8.56 UNIT IVCONT (20:16)
[2024-01-06 20:20] LABS: Troponin-I High Sensitivity 1805.6 ng/L (<3.5-35.0)
--- NOTE | 2024-01-06 20:20 | PC.NURSE ---
Heparin drip started at 12u/kg per protocol. Pt tolerated well. No bleeding noted. Next PTT-HD lab draw due at 0220. Critical lab result received: Troponin 1805.6. Result given to Dr. Carlson. No new orders at this time. Monitoring is ongoing.
[2024-01-06 20:24] LABS: Influenza A PCR NEGATIVE (Negative); Influenza B PCR NEGATIVE (Negative); Resp Syncy Virus RNA Qual PCR NEGATIVE (Negative); SARS COV2 PCR INHOUSE NEGATIVE (Negative)
--- NOTE | 2024-01-06 20:43 | PC.NURSE ---
Nursing report [place] to KENNY Sandoval [place] [facility] [place] via [place] to MM3 bed 10. Family at bedside aware.
[2024-01-06 20:44] VITALS: BP 148/73; PULSE 81; RESP 24; TEMP 36.8; O2SAT 95
== END 2024-01-06 20:46 | disposition short-term general hospital (02) ==
PROVIDERS: Physician Assistant Medical; Emergency Provider Internal Medicine; PCP Internal Medicine
DX: I21.4 Non-ST elevation (NSTEMI) myocardial infarction (principal); I10 Essential (primary) hypertension; E11.9 Type 2 diabetes mellitus without complications; Z79.02 Long term (current) use of antithrombotics/antiplatelets; Z79.82 Long term (current) use of aspirin; Z95.5 Presence of coronary angioplasty implant and graft
CPT/HCPCS: 0241U; 36415; 80053; 83735; 84484; 85025; 85610; 85730; 93005; 96374; 96375; 99285; J1644; J2405

== ENCOUNTER → 2024-01-06 19:22 | Outpatient (BNV) | payer MEDICAID, SELFPAY | PROVIDERS: Emergency Provider Internal Medicine; PCP Internal Medicine; Visit Provider Internal Medicine Cardiovascular Disease | DX: I21.3 ST elevation (STEMI) myocardial infarction of unspecified site (principal); I44.4 Left anterior fascicular block | CPT/HCPCS: 93010 ==

== ENCOUNTER 2024-01-17 13:35 | Outpatient (AMB) | payer MEDICAID, SELFPAY ==
[2024-01-17 13:39] VITALS: BP 118/68; PULSE 88; O2SAT 98; BMI 25.0
--- NOTE | 2024-01-17 13:39 | MHC.OFFVIS ---
Vital Signs 01/17/24 13:39 Height 5 ft 3 in Weight 141 lb 1.533 oz BMI 25.0 BP 118/68 Blood Pressure Location Lt brachial Position Sitting Pulse 88 Pulse Source Pulse Oximeter Pulse Oximetry (%) 98 Oxygen Delivery Method Room Air Intake Visit Reasons: f/up2 wk s/p cath/ mi update pt order Oral And Maxillofacial Surgeon Required: Yes Oral And Maxillofacial Surgeon Name: Daughter Caprice Allergies No Known Allergies Allergy (Verified 01/06/24 19:13) Medication List - Last Reconciled 01/17/24 by Teresita Lopez NP amlodipine 5 mg PO QAM aspirin 81 mg PO DAILY atorvastatin 80 mg PO DAILY blood sugar diagnostic (Freestyle [employer] strips) As directed blood-glucose meter (Freestyle [employer] meter) As directed dapagliflozin propanediol (Farxiga) 10 mg PO DAILY dulaglutide (Trulicity) mg subcut QWEEK heparin(porcine) in 0.45% NaCl 25,000 unit/250 mL 25,000 units (250 mL) continuous IV infusion .Q0M insulin lispro (Admelog U-100 Insulin lispro) See Protocol units subcut QIDACHS lancets (FreeStyle Lancets) As directed metformin ER mg PO metoprolol succinate ER 50 mg PO DAILY sacubitril-valsartan 24-26 mg (Entresto) 1 tab PO BID ticagrelor (Brilinta) 90 mg PO BID HPI Comments Details: 63-year-old male presents today with his daughter today for post cardiac cathetization. On 12/20 he had a MARINA to the LAD. On 12/25 he presents to the lab support service tech again for acute stent thrombosis. Then on 01/05 he presents with nausea and vomiting and was [place] [facility]. He reports he has been doing well since discharge. He reports he no longer has any chest discomfort, and denies any shortness of breath or palpitations. He reports he has been compliant with his medications. He reports his systolic blood pressure at home is 110-120s. He is avoiding salt and doing daily weights which he reports have been stable. [facility] Medical History (Updated 01/18/24 @ 12:42 by Teresita Lopez NP) Diabetes HLD (hyperlipidemia) HTN (hypertension) Surgical History (Updated 01/18/24 @ 12:32 by Teresita Lopez NP) S/P cardiac catheterization S/P cardiac cath H/O heart artery stent Hx of appendectomy Social History Household Members: None Housing: Apartment Do you presently have visiting nurse or other home services: No Patient Tobacco Use Status: Tobacco use Unknown Review of Systems Const Denies weakness ENT Denies dizziness Card Denies chest pain, Denies chest pain with activity, Denies syncope, Denies rapid heart rate, Denies pedal edema, Denies edema, Denies leg edema, Denies lightheadedness, Denies palpitations, Denies dyspnea, Denies dyspnea on exertion and Denies orthopnea Resp Denies cough, Denies dyspnea and Denies dyspnea on exertion GI Denies hematochezia and Denies change in stool character Musc Denies abnormal gait, Denies muscle cramps, Denies muscle weakness, Denies numbness, Denies radiating pain into limb and Denies tingling Neuro Denies abnormal gait, Denies dizziness, Denies syncope, Denies numbness, Denies tingling and Denies weakness Endo Denies palpitations Physical Exam Vital Signs: Last Vital Signs Pulse 88 01/17/24 13:39 BP 118/68 01/17/24 13:39 Pulse Ox 98 01/17/24 13:39 Oxygen Delivery Method Room Air 01/17/24 13:39 BMI result Body Mass Index 25.0 Assessment & Plan Assessment & Plan (1) S/P cardiac cath: Comment: 12/26/[address] Parker for STEMI Cardiac lesions LAD: Lesion in Mid LAD: Mid subsection.100% stenosis 25 mm length reduced to 15%. Pre procedure RONY 0 flow was noted. Post Procedure RONY III flow was present. Poor runoff was present. The lesion was diagnosed as High Risk (C). The lesion was diffuse and lightly calcified.The lesion showed evidence of thrombus presence, moderate angulation and mild tortuosity.The guidewire cross was successful.Culprit lesion.Bifurcation lesion. Pre PCI IVUS MLD:2.5 mm Vessel Diameter:3.25 mm Reference Vessel diam:4 mm Post PCI IVUS MLD (in stent):2.75 mm Stent was well apposed. Code(s): Z98.890 - Other specified postprocedural states Category: Surgical (2) NSTEMI (non-ST elevated myocardial infarction): Code(s): I21.4 - Non-ST elevation (NSTEMI) myocardial infarction Category: Medical (3) S/P cardiac catheterization: Comment: 12/21/[address] Astudillo for NSTEMI Cardiac Arteries and Lesion Findings LMCA: Normal. LAD: Moderate diffuse disease throughout the vessel with severe disease of the LAD diagonal bifurcation. Lesion in Mid LAD: Proximal subsection.85% stenosis 10 mm length.Culprit lesion. Lesion in 1st Diag: Ostial.80% stenosis . The lesion was diagnosed as Moderate Risk (B). Bifurcation lesion. LCx: Severe diffuse disease LPDA. Mild disease proximal circumflex. RCA: Lesion in Mid RCA: Mid subsection.60% stenosis . Code(s): Z98.890 - Other specified postprocedural states Category: Surgical (4) Acute HFrEF (heart failure with reduced ejection fraction): Code(s): I50.21 - Acute systolic (congestive) heart failure Category: Medical Plan: has repeat echo on 01/25/24. [place]08/24 [place] [facility] showed ejection fraction of 30-40%. The mid to distal anterior, inferolateral, anterolateral jacobsen and apex are akinetic . The distal septal, inferior wall is akinetic . There is no evidence of left ventricular thrombus. The left atrium is mildly dilated. Not fluid overlaoded on exam today. Discussed in detail about daily weights and salt avoidance. (5) Ischemic cardiomyopathy: Code(s): I25.5 - Ischemic cardiomyopathy Category: Medical Plan: has repeat echo on 01/25/24. (6) Diabetes: Code(s): E11.9 - Type 2 diabetes mellitus without complications Category: Medical Plan: Discussed about diabetes control and medication compliance. He reports his sugars have been 220s. Plan Patient is on Brilinta 90mg BID. Discussed the importance of medication compliance and that this medication will be for at minimum 12 months. Aspirin 81mg daily indefinitely Has repeat echo 01/24. Heart healthy lifestyle discussed in detail with him and his daughter and both report understanidng. Reporting symptoms such as chest pains, shortness of breath, and weight gain of 3+ lbs overnight or 5+ lbs in a week discussed. Patient is agreeable to cardiac rehab. Orders: Orders Cardiac Rehab 01/17/24 I21.4 - Non-ST elevation (NSTEMI) myocardial infarction Lipid Panel 01/17/24 I50.21 - Acute systolic (congestive) heart failure Basic Metabolic Panel 01/17/24 I50.21 - Acute systolic (congestive) heart failure Medications: Discontinued metoprolol tartrate Discontinued Reason: Doctor's Order 50 mg See Protocol PO BID Coding Level of Care Code Est Pt Level 4 (76747) Diagnoses S/P cardiac cath Z98.890 NSTEMI (non-ST elevated myocardial infarction) I21.4 Acute HFrEF (heart failure with reduced ejection fraction) I50.21 Ischemic cardiomyopathy I25.5 Diabetes E11.9
== END 2024-01-17 14:48 | disposition home or self-care (01) ==
PROVIDERS: PCP Internal Medicine; Visit Provider Nurse Practitioner
DX: Z98.890 Other specified postprocedural states (principal); I21.4 Non-ST elevation (NSTEMI) myocardial infarction; I50.21 Acute systolic (congestive) heart failure; I25.5 Ischemic cardiomyopathy; E11.9 Type 2 diabetes mellitus without complications
CPT/HCPCS: 99214

== ENCOUNTER → 2024-01-17 13:35 | Outpatient (BNVA) | payer MEDICAID, SELFPAY | PROVIDERS: PCP Internal Medicine; Visit Provider Nurse Practitioner | DX: I21.4 Non-ST elevation (NSTEMI) myocardial infarction (principal); I50.21 Acute systolic (congestive) heart failure; I25.5 Ischemic cardiomyopathy; E11.9 Type 2 diabetes mellitus without complications; Z98.890 Other specified postprocedural states | CPT/HCPCS: 99212 ==

== ENCOUNTER → 2024-01-25 12:54 | Outpatient (REF) | payer MEDICAID, SELFPAY ==
--- NOTE | 2024-01-25 13:00 | CA_ITS ---
Transthoracic Echocardiogram Patient (Last, First, Middle): Greg Land, Gender: Male Date of : 1960 Age: 63 Procedure Date: 01/25/2024 Procedure Type: Transthoracic Echocardiogram Location: OP Height: 160.02 cm Weight: 63.5 kg BSA: 1.66 m2 Heart Rate: bpm BP: 122 / 70 mmHg Clinical Secretary: JOHN Palmer MD: Dixon Astudillo MD Production Finisher: Tan Mcwilliams MD Symptoms: I50.21 - Acute systolic (congestive) heart failure Study Quality: Adequate with contrast ECG Rhythm: Sinus Conclusions: - 1. Moderate to severe LV systolic dysfunction with LVEF of 30 35% with impaired relaxation filling pattern with wall motion abnormality in LAD territory 2. Trivial aortic regurgitation 3. No gross pericardial effusion Findings Procedure Information Contrast agent, definity, is being given per protocol without apparent complications. Left Ventricle Normal left ventricular cavity size. There is normal left ventricular wall thickness. The left ventricular systolic function is moderate to severely decreased. The visually estimated ejection fraction is between 30-35%. Spectral Doppler is indicative of an impaired relaxation filling pattern. Wall Motion Rest Echo Findings The entire apex, the mid anterior, and mid anteroseptal segments are akinetic. All other scored wall segments showed normal motion. Right Ventricle Normal right ventricular cavity size and systolic function. Atria Both atria are normal in size. There is lipomatous hypertrophy of the interatrial septum. There is no evidence of interatrial shunt. Aortic Valve Normal aortic valve structure and function. There is no aortic valve stenosis. There is trace (trivial) aortic valve regurgitation. Mitral Valve Normal mitral valve structure and function. There is trace mitral valve regurgitation. There is no mitral valve stenosis. Pulmonic Valve The pulmonic valve is likely normal. There is trace pulmonic valve regurgitation. Tricuspid Valve Normal tricuspid valve structure. Tricuspid regurgitation envelope is inadequate for calculation of right ventricular systolic pressure. Normal right atrial pressure. Great Vessels The pulmonary artery was not well visualized. There is no dilatation of the ascending aorta measuring 3.40 cm. Small plaque is seen in the sino tubular ridge. Venous The inferior vena cava is normal in size and collapses greater than 50% with inspiration. Pericardium/Pleural There is no evidence of pericardial effusion. Prior Study Comparison Changes noted compared to prior study dated: 12/20/2023. LV systolic function is reduced Measurements 2D Linear Measurements IVSd: 1.11 0.6-0.9/0.6-1.0 cm LVIDd: 4.96 3.9-5.3/4.2-5.9 cm LVIDd Index: 2.99 2.4-3.2/2.2-3.1 cm/m2 LVIDs: 3.16 2.0-3.6 cm LVPWd: 1.06 0.7-1.1 cm LA Diam: 3.00 2.7-3.8/3.0-4.0 cm LAIDs Index: 1.81 1.5-2.3 cm/m2 LV Mass: 250.06 67-162/88-224 g LV Mass Index: 150.64 43-95/49-115 g/m2 LVOT Diam: 2.20 3.0+(-)1.3 cm 2D Systolic Function EF 4C: 37.40 >55% EF 2C: 25.70 >55% EF BiP: 32.00 >55% Mitral Valve MV Pk E: 0.79 MV PK A: 0.99 MV Decel Time: 141.00 E/A: 0.80 E'Lateral: 6.05 E'Medial: 3.59 E/E' Med: 22.10 E/E' Lat: 13.10 PHT: 41.00 MVA PHT: 5.37 Decel [place]: 5.63 Aortic Valve AoV Pk Osmany: 0.84 AoV Mn Osmany: 0.66 AoV VTI: 0.19 AoV Pk Grad: 3.00 Aov Mn Grad: 2.00 CORI Cont.VTI: 3.15 LVOT LVOT Pk Osmany: 0.73 LVOT Mn Osmany: 0.54 LVOT VTI: 0.15 LVOT Pk Grad: 2.00 LVOT Mn Grad: 1.00 LVOT Diam: 2.20 LVOT Area: 3.80 Diastolic Function MV Pk E: 0.79 MV Pk A: 0.99 E/A: 0.80 E'Medial: 3.59 E/E' Med: 22.10 E' Laterial: 6.05 E/E' Lat: 13.10 Right Ventricle TAPSE (mm): 17.50 TVS' Osmany: 10.50 Tricuspid Valve RA Press: 3.00 Great Vessels Aorta Sinus of Valsalva: 3.90 2.0-3.5 cm Ao Asc: 3.40 2.1-3.4 cm Pulmonary Valve PV Pk Osmany: 0.73 Peak PV Grad: 2.00 Updated in Other Vendor System with Status of Final Tan Mcwilliams MD electronically signed on 01/25/2024 6:59:41 PM with status of Final
== END ==
LOC: HO.CARD 12:54
PROVIDERS: PCP Internal Medicine; Visit Provider Internal Medicine Cardiovascular Disease
DX: I50.21 Acute systolic (congestive) heart failure (principal); I25.5 Ischemic cardiomyopathy; I21.4 Non-ST elevation (NSTEMI) myocardial infarction
CPT/HCPCS: 93306; Q9957

== ENCOUNTER → 2024-01-25 13:00 | Outpatient (BNV) | payer MEDICAID, SELFPAY | PROVIDERS: PCP Internal Medicine; Visit Provider Internal Medicine Cardiovascular Disease | DX: I35.1 Nonrheumatic aortic (valve) insufficiency (principal); I34.0 Nonrheumatic mitral (valve) insufficiency | CPT/HCPCS: 93306 ==

== ENCOUNTER 2024-02-23 10:28 | Outpatient (REF) | payer MEDICAID, SELFPAY ==
[2024-02-23 11:54] LABS: Hematocrit 37.8 % (42.0-52.0); Hemoglobin 12.4 g/dl (14.0-18.0)
[2024-02-23 12:22] LABS: Anion Gap 12 (12-20); Blood Urea Nitrogen 9 mg/dL (9-16); Calcium 9.8 mg/dL (8.4-10.2); Carbon Dioxide 27 mmol/L (22-29); Chloride 110 mmol/L (96-108); Estimated Glomerular Filt Rate 47; Glucose Random 122 mg/dL (60-115); Potassium 5.3 mmol/L (3.3-5.1); Sodium 144 mmol/L (135-145)
[2024-02-23 12:25] LABS: B Type Natriuretic Peptide 825 pg/mL (<100)
== END 2024-02-23 10:29 | disposition home or self-care (01) ==
LOC: HO.LAB 10:28
PROVIDERS: PCP Internal Medicine; Visit Provider Nurse Practitioner
DX: I50.21 Acute systolic (congestive) heart failure (principal)
CPT/HCPCS: 36415; 80048; 83880; 85014; 85018

== ENCOUNTER 2024-03-28 15:19 | Outpatient (AMB) | payer MEDICAID, SELFPAY ==
[2024-03-28 15:23] VITALS: BP 118/62; PULSE 82; BMI 25.4
--- NOTE | 2024-03-28 15:23 | A.OFFVIS_ITS ---
Vital Signs 03/28/24 15:23 Height 5 ft 3 in Weight 143 lb 4.807 oz BMI 25.4 BP 118/62 Blood Pressure Location Lt brachial Position Sitting Pulse 82 Pulse Source Pulse Oximeter Intake Visit Reasons: Ischemic cardiomyopathy Follow Up from Echo Rn Licensed Practical Required: Yes Rn Licensed Practical Name: Daughter Allergies No Known Allergies Allergy (Verified 01/06/24 19:13) Medication List - Last Reconciled 03/28/24 by Teresita Lopez NP amlodipine 5 mg PO QAM aspirin 81 mg PO DAILY atorvastatin 80 mg PO DAILY blood sugar diagnostic (Freestyle [employer] strips) As directed blood-glucose meter (Freestyle [employer] meter) As directed dapagliflozin propanediol (Farxiga) 10 mg PO DAILY dulaglutide (Trulicity) mg subcut QWEEK insulin lispro (Admelog U-100 Insulin lispro) See Protocol units subcut QIDACHS lancets (FreeStyle Lancets) As directed metformin ER mg PO metoprolol succinate ER 50 mg PO DAILY sacubitril-valsartan 49-51 mg (Entresto) 1 tab PO BID ticagrelor (Brilinta) 90 mg PO BID HPI Comments Details: 63-year-old male presents today with his daughter today for post cardiac cathetization. On 12/20 he had a MARINA to the LAD. 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 Then on 01/05 he presents with nausea and vomiting and was transferred to [facility] for NSTEMI without intervention. He reports he has been doing well since discharge. He reports he no longer has any chest discomfort, and denies any shortness of breath or palpitations. He reports he has been compliant with his medications. He reports his systolic blood pressure at home is 110-120s. He is avoiding salt and doing daily weights which he reports have been stable. He reports he has been doing well in cardiac rehab. Weights have been between 138-140. His diabetes is also becoming more controlled. [facility] Medical History (Updated 01/18/24 @ 12:42 by Teresita Lopez NP) Diabetes HLD (hyperlipidemia) HTN (hypertension) Surgical History (Updated 01/18/24 @ 12:32 by Teresita Lopez NP) S/P cardiac catheterization S/P cardiac cath H/O heart artery stent Hx of appendectomy Social History Household Members: None Housing: Apartment Do you presently have visiting nurse or other home services: No Patient Tobacco Use Status: Tobacco use Unknown Review of Systems Const Denies weakness ENT Denies dizziness Card Denies chest pain, Denies chest pain with activity, Denies syncope, Denies rapid heart rate, Denies pedal edema, Denies edema, Denies leg edema, Denies lightheadedness, Denies palpitations, Denies dyspnea, Denies dyspnea on exertion and Denies orthopnea Resp Denies cough, Denies dyspnea and Denies dyspnea on exertion GI Denies hematochezia and Denies change in stool character Musc Denies abnormal gait, Denies muscle cramps, Denies muscle weakness, Denies numbness, Denies radiating pain into limb and Denies tingling Neuro Denies abnormal gait, Denies dizziness, Denies syncope, Denies numbness, Denies tingling and Denies weakness Endo Denies palpitations Physical Exam Vital Signs: Last Vital Signs Pulse 82 03/28/24 15:23 BP 118/62 03/28/24 15:23 BMI result Body Mass Index 25.4 Const General: healthy appearing and no acute distress Orientation/consciousness: patient oriented x3 HEENT Head: Yes normal to inspection Eyes General: appearance normal, both eyes and all related structures Neck Neck: Yes normal visual inspection Chest Chest palpation & inspection: normal inspection of the chest Resp Effort & Inspection: normal respiratory effort Auscultation: clear to auscultation bilaterally Cardio Jugular venous distension: no JVD Palpation: normal PMI Rate: regular rate Rhythm: regular rhythm Heart sounds: S1 normal heart sound present, S2 normal heart sound present, no click, no gallops, no murmurs and no rubs GI Inspection: Yes normal to inspection Palpation (GI): Soft to palpation Skin General skin exam: no rashes or lesions noted Neuro General: patient oriented x3 Extrem General: Yes normal to inspection Psych Appearance: grossly normal Results Reviewed Results Reviewed: Echo Conclusions: - 1. Moderate to severe LV systolic dysfunction with LVEF of 30 35% with impaired relaxation filling pattern with wall motion abnormality in LAD territory 2. Trivial aortic regurgitation 3. No gross pericardial effusion Assessment & Plan Assessment & Plan (1) NSTEMI (non-ST elevated myocardial infarction): Code(s): I21.4 - Non-ST elevation (NSTEMI) myocardial infarction Category: Medical (2) Ischemic cardiomyopathy: Code(s): I25.5 - Ischemic cardiomyopathy Category: Medical Plan Continuing cardiac rehab, Patient is on Brilinta 90mg BID. Discussed the importance of medication compliance and that this medication will be for at minimum 12 months. Aspirin 81mg daily indefinitely. Heart healthy lifestyle discussed in detail with him and his daughter and both report understanidng. Reporting symptoms such as chest pains, shortness of breath, and weight gain of 3+ lbs overnight or 5+ lbs in a week discussed. Patient is agreeable to cardiac rehab. He is on an increase dose of entresto now will repeat echocardiogram now that he has been on it. Refills sent. Orders: Orders CA echo transthoracic complete 03/28/24 I21.4 - Non-ST elevation (NSTEMI) myocardial infarction, I25.5 - Ischemic cardiomyopathy B Type Natriuretic Peptide 03/28/24 I25.5 - Ischemic cardiomyopathy Medications: Changed 2 From atorvastatin 80 mg PO DAILY 1 tab 0RF To atorvastatin 80 mg PO DAILY 90 tabs 3RF 90 days From sacubitril-valsartan 49-51 mg (Entresto) 1 tab PO BID 60 tabs 3RF To sacubitril-valsartan 49-51 mg (Entresto) 1 tab PO BID 180 tabs 3RF 90 days Coding Level of Care Code Est Pt Level 4 (82466) Diagnoses NSTEMI (non-ST elevated myocardial infarction) I21.4 Ischemic cardiomyopathy I25.5
== END 2024-03-28 15:48 | disposition home or self-care (01) ==
PROVIDERS: PCP Internal Medicine; Visit Provider Nurse Practitioner
DX: I21.4 Non-ST elevation (NSTEMI) myocardial infarction (principal); I25.5 Ischemic cardiomyopathy
CPT/HCPCS: 99214

== ENCOUNTER → 2024-03-28 15:19 | Outpatient (BNVA) | payer MEDICAID, SELFPAY | PROVIDERS: PCP Internal Medicine; Visit Provider Nurse Practitioner | DX: I21.4 Non-ST elevation (NSTEMI) myocardial infarction (principal); I25.5 Ischemic cardiomyopathy | CPT/HCPCS: 99212 ==

== ENCOUNTER → 2024-04-30 12:46 | Outpatient (REF) | payer MEDICAID, SELFPAY ==
--- NOTE | 2024-04-30 12:48 | CA_ITS ---
Transthoracic Echocardiogram Patient (Last, First, Middle): Greg Land, Gender: Male Date of : 1960 Age: 63 Procedure Date: 04/30/2024 Procedure Type: Transthoracic Echocardiogram Location: OP Height: 160. cm Weight: 63.5 kg BSA: 1.66 m2 Heart Rate: 62 bpm BP: 135 / 65 mmHg Mill Feeder: JOHN Referring MD: Teresita Lopez NP Symptoms: I25.5 - Ischemic cardiomyopathy Study Quality: Fair ECG Rhythm: Sinus Conclusions: - The left ventricular systolic function is moderately decreased. The visually estimated ejection fraction is between 35-40%. - The apex, apical lateral, apical septum, and mid anteroseptal segments are akinetic. - No obvious valvular pathology seen on this study. Findings Left Ventricle Normal left ventricular cavity size. The left ventricular systolic function is moderately decreased. The visually estimated ejection fraction is between 35-40%. There is evidence of regional wall motion abnormalities. Evidence suggests grade II (moderate) diastolic dysfunction. There is mild septal asymmetric hypertrophy. Wall Motion Rest Echo Findings The apex, apical lateral, apical septum, and mid anteroseptal segments are akinetic. Right Ventricle Normal right ventricular cavity size and systolic function. Atria Both atria are normal in size. Aortic Valve There is a normal trileaflet aortic valve. There is mild calcification of the aortic valve. There is no aortic valve stenosis. There is trace (trivial) aortic valve regurgitation. Mitral Valve The mitral valve appears normal. There is trace mitral valve regurgitation. There is no mitral valve stenosis. Pulmonic Valve The pulmonic valve is likely normal. Tricuspid Valve Normal tricuspid valve structure. There is trace tricuspid valve regurgitation. Tricuspid regurgitation envelope is inadequate for calculation of right ventricular systolic pressure. Great Vessels The asc aorta is normal in size. Venous The inferior vena cava is normal in size and collapses greater than 50% with inspiration. Pericardium/Pleural There is a trivial pericardial effusion. Prior Study Comparison No significant change compared to prior study dated: 01/25/2024. Recommendations, Care & Conclusions No obvious valvular pathology seen on this study. Measurements 2D Linear Measurements IVSd: 1.08 0.6-0.9/0.6-1.0 cm LVIDd: 3.93 3.9-5.3/4.2-5.9 cm LVIDd Index: 2.37 2.4-3.2/2.2-3.1 cm/m2 LVIDs: 2.41 2.0-3.6 cm LVPWd: 0.96 0.7-1.1 cm LA Diam: 3.20 2.7-3.8/3.0-4.0 cm LAIDs Index: 1.93 1.5-2.3 cm/m2 LV Mass: 158.61 67-162/88-224 g LV Mass Index: 95.55 43-95/49-115 g/m2 LVOT Diam: 1.90 3.0+(-)1.3 cm 2D Systolic Function EF 4C: 46.30 >55% EF 2C: 41.80 >55% EF BiP: 45.10 >55% Mitral Valve MV Pk E: 1.11 MV PK A: 0.59 MV Decel Time: 175.00 E/A: 1.90 E'Lateral: 5.66 E'Medial: 4.03 E/E' Med: 27.50 E/E' Lat: 19.60 PHT: 51.00 MVA PHT: 4.31 Decel Mar[place]: 6.34 Aortic Valve AoV Pk Osmany: 0.88 AoV Mn Osmany: 0.62 AoV VTI: 0.20 AoV Pk Grad: 3.00 Aov Mn Grad: 2.00 CORI Cont.VTI: 2.20 LVOT LVOT Pk Osmany: 0.71 LVOT Mn Osmany: 0.47 LVOT VTI: 0.15 LVOT Pk Grad: 2.00 LVOT Mn Grad: 1.00 LVOT Diam: 1.90 LVOT Area: 2.84 Diastolic Function MV Pk E: 1.11 MV Pk A: 0.59 E/A: 1.90 E'Medial: 4.03 E/E' Med: 27.50 E' Laterial: 5.66 E/E' Lat: 19.60 Right Ventricle TAPSE (mm): 19.10 TVS' Osmany: 10.30 Tricuspid Valve RA Press: 3.00 Great Vessels Aorta Sinus of Valsalva: 3.70 2.0-3.5 cm Ao Asc: 3.40 2.1-3.4 cm Pulmonary Valve PV Pk Osmany: 0.83 Peak PV Grad: 3.00 Updated in Other Vendor System with Status of Final Levi Wilkes MD electronically signed on 05/01/2024 1:15:49 PM with status of Final
== END ==
LOC: HO.CARD 12:46
PROVIDERS: PCP Internal Medicine; Visit Provider Nurse Practitioner
DX: I25.5 Ischemic cardiomyopathy (principal); I21.4 Non-ST elevation (NSTEMI) myocardial infarction
CPT/HCPCS: 93306

== ENCOUNTER → 2024-04-30 12:48 | Outpatient (BNV) | payer MEDICAID, SELFPAY | PROVIDERS: PCP Internal Medicine; Visit Provider Internal Medicine | DX: I42.2 Other hypertrophic cardiomyopathy (principal); I35.8 Other nonrheumatic aortic valve disorders; I25.5 Ischemic cardiomyopathy | CPT/HCPCS: 93306 ==

== ENCOUNTER → 2024-05-15 10:30 | Outpatient (BNV) | payer MEDICARE, MEDICAID, SELFPAY | PROVIDERS: Visit Provider Radiology Diagnostic Radiology | DX: R13.10 Dysphagia, unspecified (principal) | CPT/HCPCS: 74230 ==

== ENCOUNTER 2024-05-15 10:32 | Outpatient (REF) | payer MEDICARE, MEDICAID, SELFPAY ==
--- NOTE | ~2024-05-15 | FL_ITS ---
EXAMINATION: MODIFIED BARIUM SWALLOW CLINICAL INFORMATION: Dysphagia. COMPARISON: None. TECHNIQUE: Modified barium swallow was performed under lateral fluoroscopy with patient in standing position. Barium mixed with solids and liquids of different consistencies was administered by the speech pathologist. Examination was recorded in the fluoroscopy suite. FINDINGS: Trace laryngeal penetration is seen within thin barium. There is moderate cricopharyngeal achalasia present. A small anterior bridging osteophyte is present at C5-C6. FLUOROSCOPY TIME: 1 minute 51 seconds Number of Spot Images: N/A DOSE AREA PRODUCT: 871.7 uGy-m2 (microgray-meter squared) FL/FL Modified Barium Swallow IMPRESSION: 1. Trace laryngeal penetration with thin barium. No subglottic aspiration was observed. 2. Moderate cricopharyngeal achalasia. 3. Small anterior bridging osteophyte at C5-C6. This appears to be noncontributory. Refer to the speech therapy report for further clarification This procedure was performed by Sixto Fuentes PA-C, and supervised by Dr. Lopez Electronically signed by: Sal Lopez MD 05/16/2024 01:17 PM EDT
--- NOTE | 2024-05-27 14:42 | MHC.SL.IMP ---
Date of Plan of Treatment: 05/15/24 Onset of Symptoms/Illness: 04/18/24 Date Treatment Started: 05/15/24 Admitting Diagnosis: Dysphagia, unspecified Primary Speech & Language Diagnosis: R13.19 Other Dysphagia Secondary Speech & Language Diagnosis: Reason for Today's Visit: 25263 Modified Barium Swallow Study Comments: Pre-evaluation Dietary Consistencies: Regular Pre-evaluation Liquid Consistency: Thin Pre-evaluation Medication Administration: Whole with Liquid Oral Motor Exam Facial Symmetry: Normal for Patient Facial Movement: Oral-Facial Facial Miscellaneous Observations: Mouth Occlusion: Normal Oral-Facial Teeth Characteristics: Intact/Normal Oral-Facial Lip Pucker Description: Normal Oral-Facial Smile (Lips) Description: Normal Oral-Facial Puff Cheeks Description: Normal Tongue Size: Normal Tongue Frenum Length: Normal Tongue Excursion Description: Normal Tongue Range of Movement Description: Normal Tongue Speed of Movement Description: Normal Tongue Strength of Movement (against opposing pressure): Normal Tongue Movement Characteristics: Normal/Absent Oral Expression Ability: No Impairment Is patient able to manage secretions?: Yes Is patient able to produce volitional cough?: Yes Food and Liquid Trials: Oral Impairment: Lip Closure: 1=Interlabial escape; no progression to anterior tip Oral Impairment: Tongue Control During Bolus Hold: 1=Escape to lateral buccal cavity/floor of mouth (FOM) Oral Impairment: Bolus Preparation/Mastication: 1=Slow prolonged chewing/mashing with complete re-collection Oral Impairment: Bolus Transport/Lingual Motion: 0=Brisk tongue motion Oral Impairment: Oral Residue: 1=Trace residue lining oral structures Oral Impairment:Initiation of Pharyngeal Swallow: 2=Bolus head at posterior laryngeal surface of epiglottis Pharyngeal Impairment: Soft Palate Elevation: 0=No bolus between soft palate (SP)/pharyngeal wall (PW) Pharyngeal Impairment: Laryngeal Elevation: 0=Complete superior movement of thyroid cartilage (see description) Pharyngeal Impairment: Anterior Hyoid Excursion: 0=Complete anterior movement Pharyngeal Impairment: Epiglottic Movement: 0=Complete inversion Pharyngeal Impairment: Laryngeal Vestibular Closure:: 1=Incomplete: narrow column air/contrast in laryngeal vestibule Pharyngeal Impairment: Pharyngeal Stripping Wave: 0=Present: complete Pharyngeal Impairment: Pharyngeal Contraction: Did not test Pharyngeal Impairment: Pharyngoesophageal Segment Openin=Partial distention/partial duration: partial obstruction of flow Pharyngeal Impairment: Tongue Base (TB) Retraction: 2=Narrow column of contrast/air between TB and posterior PW Pharyngeal Impairment: Pharyngeal Residue: 1=Trace residue within or on pharyngeal structures Pharyngeal Impairment: Esophageal Clearance Upright Position: Did not test Impressions and Recommendations Clinical Observations: [facility] ID: [id number] [facility] Results: Lip closure for intraoral bolus containment resulted in interlabial escape, without progression to the anterior lip. Tongue control during bolus hold allowed bolus escape to the lateral buccal cavity/floor of mouth. Bolus preparation and mastication resulted in slow, prolonged chewing/mashing but with complete re-collection. Bolus transport/lingual motion was with brisk tongue motion. Oral residue was a trace, lining oral structures. Initiation of the pharyngeal swallow occurred as the bolus head was at the posterior laryngeal surface of the epiglottis. Soft palate elevation resulted in no bolus between the soft palate and the pharyngeal wall. Laryngeal elevation demonstrated complete superior movement of the thyroid cartilage with complete approximation of the arytenoids to the epiglottic petiole. Anterior hyoid excursion demonstrated complete anterior movement. Epiglottic movement resulted in complete inversion. Laryngeal vestibular closure was incomplete, with a narrow column of air/contrast noted within the laryngeal vestibule at the height of the swallow. Pharyngeal stripping wave was present and complete. Pharyngeal contraction could not be determined due to logistical reasons not related to physiologic impairment. Pharyngoesophageal segment opening demonstrated partial distension/partial duration, with partial obstruction of bolus flow. Tongue base retraction allowed a narrow column of contrast or air between the retracted tongue base and the posterior pharyngeal wall. Pharyngeal residue was a trace within or on pharyngeal structures. Esophageal clearance in the upright position could not be assessed due to logistical reasons not related to physiologic impairment. Oral Impairment Score: 4 Pharyngeal Impairment Score: 4 (absence of score, component 13) Esophageal Impairment Score: --- (absence of score, component 17) Laryngeal Penetration and Aspiration: Penetration was observed in today's study. Thin Contrast entered the airway, contacted the vocal folds, and was ejected from the airway. Intake Recommendations: Post-Study Functional Oral Intake Scale (FOIS): 7- Total oral intake with no restrictions SUMMARY: No aspiration was observed during today's study. Penetration was present to the level of the vocal folds that was spontaneously removed with large sips of Thin Liquids. No significant oral or pharyngeal retention present after the swallow. Radiologist HAWA noted anterior cervical osteophytes at the level of C6 and C7. This may contribute to the Pt's reported globus sensation. He was provided a 13mm barium tablet with water. There was expected propagation of the pill down to the esophagus but remained above the lower esophageal sphincter until he took a cued second sip of water. Liquid Intake Recommendation: Thin Liquid Intake Strategies: Unrestricted Dietary Recommendations: Regular Medication Administration: Whole with Liquid Please contact the pharmacy regarding appropriate crushable or liquid drug formulations that are available whenever modified delivery is recommended. Compensatory Strategies Recommended: Sitting Upright (90 deg) Supervision during eating and or drinking: Total Assistance (1:1) Recommended Treatments: Compens. Strategy Educat. Recommendation for Speech Therapy: NA:Typical Evaluation Further Testing Needed Text Comment: No dietary restrictions implicated by today's study. Incidental finding of esophageal retention of a 13mm pill would be better assessed with a full Barium Swallow Study or EGD, as indicated by his medical team. Timeline to reassess: PRN Assembler Tractor Clinician/Clinical Fellow: No Supervisory Statement: N/A Speech Language Pathologist: Geovani Cordero M.A., CCC-ROADS SUPERINTENDENT
== END 2024-05-15 10:33 | disposition home or self-care (01) ==
LOC: HO.XRAY 10:32
PROVIDERS: Visit Provider Internal Medicine
DX: R13.10 Dysphagia, unspecified (principal)
CPT/HCPCS: 74230; 92611

== ENCOUNTER 2024-06-26 08:52 | Outpatient (REF) | payer MEDICARE, SELFPAY ==
[2024-06-26 09:55] LABS: B Type Natriuretic Peptide 676 pg/mL (<100)
[2024-06-26 09:57] LABS: Anion Gap 10 (12-20); Blood Urea Nitrogen 13 mg/dL (9-16); Calcium 9.8 mg/dL (8.4-10.2); Carbon Dioxide 27 mmol/L (22-29); Chloride 111 mmol/L (96-108); Cholesterol 105 mg/dL (<200); Estimated Glomerular Filt Rate 39; Glucose Random 184 mg/dL (60-115); HDL Cholesterol 42 mg/dL (>40); LDL Cholesterol Calculated 46 mg/dL (<100); Sodium 143 mmol/L (135-145); Triglycerides 87 mg/dL (<150)
== END 2024-06-26 08:53 | disposition home or self-care (01) ==
LOC: HO.LAB 08:52
PROVIDERS: Nurse Practitioner; PCP Internal Medicine; Visit Provider Internal Medicine Cardiovascular Disease
DX: I25.5 Ischemic cardiomyopathy (principal); I50.21 Acute systolic (congestive) heart failure
CPT/HCPCS: 36415; 80048; 80061; 83880

== ENCOUNTER 2024-07-17 14:26 | Outpatient (AMB) | payer MEDICARE, SELFPAY ==
[2024-07-17 14:31] VITALS: BP 150/74; PULSE 72; O2SAT 100; BMI 23.4
--- NOTE | 2024-07-17 14:31 | MHC.OFFVIS ---
Vital Signs 07/17/24 14:31 Height 5 ft 3 in Weight 132 lb 4.438 oz BMI 23.4 BP 150/74 H Blood Pressure Location Rt brachial Position Sitting Pulse 72 Pulse Source Pulse Oximeter Pulse Oximetry (%) 100 Oxygen Delivery Method Room Air Intake Visit Reasons: Dysphagia Intake Note: Relevant Flags or Indicators ? Requires Director Of Sales And Marketing? Bon Garza presents in office today for a scheduled colonoscopy and EGD consult CC; No recent diagnostics, or med orders placed. Pt reports having labs drawn via [facility] as of last week. Pt has recent hx of NSTEMI. Seeing [facility] Cardiology - Dr. Mcwilliams. Relevant GI Sx as reported per pt? Reflux ? Dysphagia / Painful Swallowing Right Upper Abd Pain. Bloating ? Hx of any recent surgeries? None ? Pertinent FMHx? Father, mother, brother, and sister. Major cardiac issues. Director Of Sales And Marketing Required: Yes Director Of Sales And Marketing Services: Director Of Sales And Marketing Present Director Of Sales And Marketing Name: [id number] Shiv Corrigan Information Interpreted: non-clinical & clinical Allergies No Known Allergies Allergy (Verified 07/25/24 10:30) HPI HPI Dysphagia : Details: 64-year-old male with past medical history of diabetes, acute heart failure with reduced ejection fraction, ischemic cardiomyopathy, status post NSTEMI, status post cardiac catheterization with drug-eluting stent placed in 12/30/2023. Patient is currently on Brilinta twice a day. Patient has been taking the medication daily. He reports that he frequently will have a trouble swallowing certain food. No trouble swallowing liquids. Mainly and on occasion with more sticky food like bread and rice. Patient denies history of choking. Reports that he will get occasional acid reflux and epigastric pain after eating. Patient denies any nausea or vomiting. Denies any melena, hematochezia, unintentional weight loss or ribbon like stools. Patient reports to have fair appetite. No family history of CRC. Strong family history of heart disease. Last echo was done in April and it showed 35-40% EF that improved 5% since January. Patient is on Entresto and metoprolol. Currently he is not on any PPI treatment [facility] Medical History (Updated 07/25/24 @ 10:54 by Derek Atkins PA-C) Diabetes HLD (hyperlipidemia) HTN (hypertension) Surgical History S/P cardiac catheterization S/P cardiac cath H/O heart artery stent Hx of appendectomy Social History Household Members: None Housing: Apartment Do you presently have visiting nurse or other home services: No Patient Tobacco Use Status: Tobacco use Unknown Review of Systems Const Denies weight gain and Denies weight loss ENT Reports no additional complaints, Reports dysphagia and Denies odynophagia Card Reports no additional complaints Resp Reports no additional complaints GI Denies abdominal pain, Denies belching, Denies melena, Denies bloating, Denies change in bowel habits, Reports dysphagia, Denies excessive flatus, Denies dyspepsia, Reports heartburn, Denies diarrhea, Denies loose stools, Denies nausea, Denies odynophagia and Denies vomiting Reports no additional complaints Musc Reports no additional complaints Neuro Reports no additional complaints Psych Reports no additional complaints Endo Reports no additional complaints Physical Exam Vital Signs: Last Vital Signs Pulse 72 07/17/24 14:31 BP 150/74 H 07/17/24 14:31 Pulse Ox 100 07/17/24 14:31 Oxygen Delivery Method Room Air 07/17/24 14:31 BMI result Body Mass Index 23.4 Const General: healthy appearing, no acute distress and well developed Nutritional Appearance: well nourished Orientation/consciousness: patient oriented x3 Resp Effort & Inspection: normal respiratory effort, able to speak in complete sentences, no tracheal deviation and symmetric chest movement Auscultation: clear to auscultation bilaterally Cardio Rate: regular rate GI Inspection: Yes normal to inspection and No distended Palpation (GI): Soft to palpation, not firm, nontender and No hepatosplenomegaly present Auscultation: normal bowel sounds General: Yes no CVA tenderness Back/Spine/Pelvis Back: no CVA tenderness Skin General skin exam: elasticity normal, turgor normal and dry skin Neuro General: patient oriented x3 Psych Appearance: grossly normal Mental Status: mental status grossly normal Results Reviewed Results Reviewed: MODIFIED BARIUM SWALLOW 05/31/2024 IMPRESSION: 1. Trace laryngeal penetration with thin barium. No subglottic aspiration was observed. 2. Moderate cricopharyngeal achalasia. 3. Small anterior bridging osteophyte at C5-C6. This appears to be noncontributory. SPEECH THERAPY NOTES FROM [facility] [place]: No aspiration was observed during today's study. Penetration was present to the level of the vocal folds that was spontaneously removed with large sips of Thin Liquids. No significant oral or pharyngeal retention present after the swallow. Radiologist PA noted anterior cervical osteophytes at the level of C6 and C7. This may contribute to the Pt's reported globus sensation. He was provided a 13mm barium tablet with water. There was expected propagation of the pill down to the esophagus but remained above the lower esophageal sphincter until he took a cued second sip of water. Liquid Intake Recommendation: Thin Liquid Intake Strategies: Unrestricted Dietary Recommendations: Regular Medication Administration: Whole with Liquid Please contact the pharmacy regarding appropriate crushable or liquid drug formulations that are available whenever modified delivery is recommended. Compensatory Strategies Recommended: Sitting Upright (90 deg) Supervision during eating and or drinking: Total Assistance (1:1) Recommended Treatments: Compens. Strategy Educat. Recommendation for Speech Therapy: NA:Typical EvaluationFurther Testing Needed Text Comment: No dietary restrictions implicated by today's study. Incidental finding of esophageal retention of a 13mm pill would be better assessed with a full Barium Swallow Study or EGD, as indicated by his medical team. Assessment & Plan Assessment & Plan (1) Dysphagia: Code(s): R13.10 - Dysphagia, unspecified Qualifiers: Dysphagia type: pharyngoesophageal phase Qualified Code(s): R13.14 - Dysphagia, pharyngoesophageal phase (2) Postprandial epigastric pain: Code(s): R10.13 - Epigastric pain Plan Patient had modified barium swallow ordered by PCP. Unable to see reflux as this study would not showed that for us. Speech therapy notes reviewed, patient was able to swallow food with sip of water. Before taking sit patient had mild laryngeal penetration that could be from cricopharyngeal achalasia versus osteophyte. We will hold off on sending him for upper endoscopy or colonoscopy as patient is on Brilinta currently and will not be able to be off till December. We will treat him with PPI and H2 mike to see if treating his reflux will help with his symptoms of dysphagia and epigastric pain postprandially. I will see him in 3 months. Will order upper GI series with barium swallow to check for reflux, hiatal hernia, Schatzki ring, esophageal narrowing. He is agreeable to current plan of care and verbalizes understanding of instructions. He was given the opportunity to ask questions and all questions answered. Thank you for allowing me to participate in his care Medications: New pantoprazole take one tablet half an hour before breakfast 40 mg PO DAILY 30 tabs 3RF K21.9 - Gastro-esophageal reflux disease without esophagitis famotidine 20 mg PO BEDTIME 30 tabs 3RF Coding Level of Care Code New Pt Level 4 (16762) Diagnoses Pharyngoesophageal dysphagia R13.14 Dysphagia type: pharyngoesophageal phase Postprandial epigastric pain R10.13 Time Spent (min) 45 Comment 30 minutes spent with patient and additional 15 minutes spent reviewing his records
== END 2024-07-17 15:20 | disposition home or self-care (01) ==
LOC: HO.HGI 14:26
PROVIDERS: PCP Internal Medicine; Visit Provider Nurse Practitioner Family
DX: R13.14 Dysphagia, pharyngoesophageal phase (principal); R10.13 Epigastric pain
CPT/HCPCS: 99204

== ENCOUNTER → 2024-07-17 14:26 | Outpatient (BNVA) | payer MEDICARE, SELFPAY | PROVIDERS: PCP Internal Medicine; Visit Provider Nurse Practitioner Family | DX: R13.14 Dysphagia, pharyngoesophageal phase (principal); R10.13 Epigastric pain; K21.9 Gastro-esophageal reflux disease without esophagitis | CPT/HCPCS: 99202 ==

== ENCOUNTER 2024-07-25 09:00 | Outpatient (REF) | payer MEDICARE, SELFPAY | END 2024-07-25 09:01 | disposition home or self-care (01) | LOC: HO.HOSX 09:00 | PROVIDERS: Visit Provider Physician Assistant | DX: M25.562 Pain in left knee (principal); M17.11 Unilateral primary osteoarthritis, right knee | CPT/HCPCS: 73560; 73562; 99202 ==

== ENCOUNTER 2024-07-25 10:13 | Outpatient (AMB) | payer MEDICARE, SELFPAY ==
--- NOTE | 2024-07-25 10:27 | MHC.OFFVIS ---
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 Patient reports his pain has been present over 2 years, states having several falls from his knee giving out. Denies numbness or tingling. He has constant pain located at the anterior aspect of knee. His pain increases with bending his knee. No other tx. Crisis Intervention Counselor Required: Yes Crisis Intervention Counselor Services: Crisis Intervention Counselor Present Crisis Intervention Counselor Name: Michael ID#[id number] Allergies No Known Allergies Allergy (Verified 07/25/24 10:30) Medication List - Last Reconciled 07/25/24 by Derek Atkins PA-C amlodipine 5 mg PO QAM aspirin 81 mg PO QAM atorvastatin 80 mg PO DAILY 90 days blood sugar diagnostic (Freestyle Insu[employer]x strips) As directed blood-glucose meter (Freestyle Insu[employer]x meter) As directed dulaglutide (Trulicity) mg subcut QWEEK famotidine 20 mg PO BEDTIME Farxiga (dapagliflozin propanediol) 10 mg PO DAILY 90 days NS insulin lispro (Admelog U-100 Insulin lispro) See Protocol units subcut QIDACHS lancets (FreeStyle Lancets) As directed metformin ER mg PO metoprolol succinate ER 50 mg PO DAILY pantoprazole 40 mg PO DAILY sacubitril-valsartan 49-51 mg (Entresto) 1 tab PO BID 90 days ticagrelor (Brilinta) 90 mg PO BID HPI HPI TOOL CLERK Rt knee pain: Details: 64-year-old male who presents to the office today with an plumber supervisor for an evaluation of right knee pain for over 2 years. He has not had any injury however he does have a history of several falls from his knee giving out. He currently states he has constant pain at the anterior aspect of his knee that is aggravated with going downstairs, bending and kneeling and alleviates with ambulation. He denies any numbness or tingling. He has not had any treatment in the past. He has a history of diabetes. His sugar level is not well controlled. [facility] Medical History Diabetes HLD (hyperlipidemia) HTN (hypertension) Surgical History S/P cardiac catheterization S/P cardiac cath H/O heart artery stent Hx of appendectomy Social History Household Members: None Housing: Apartment Do you presently have visiting nurse or other home services: No Patient Tobacco Use Status: Tobacco use Unknown Review of Systems Const All systems reviewed & are unremarkable except as noted in HPI and below Physical Exam Vital Signs: BMI result Body Mass Index 23.4 Const General: cooperative, healthy appearing, comfortable, no acute distress, well developed and alert Orientation/consciousness: patient oriented x3 HEENT Head: Yes normal to inspection, Yes normocephalic and Yes atraumatic Eyes General: appearance normal, both eyes and all related structures Resp Effort & Inspection: normal respiratory effort and able to speak in complete sentences Cardio Rate: regular rate Peripheral pulses: Peripheral pulses 2+ throughout GI Palpation (GI): Soft to palpation Skin Lesions: no lesions Rashes: no rashes Neuro General: patient oriented x3 Extrem Other: Right knee: Skin intact, no erythema or joint effusion. Tenderness along the medial and lateral joint line. Full ROM with crepitus. Negative Lita?s. No ligamentous laxity. NVI. Results Reviewed Results Reviewed: Xrays were obtained in the office today and personally reviewed by me of the right knee show mild medial and PF compartment oa Assessment & Plan Assessment & Plan (1) Patellofemoral arthritis of right knee: Code(s): M17.11 - Unilateral primary osteoarthritis, right knee Category: Medical Plan We discussed options which include PT, NSAIDs and injections. The patient will defer on the injection today and proceed with PT and NSAIDs. If symptoms persist, she will contact me for an injection, otherwise, PRN. Orders: Orders XR knee RT 3V Today M17.11 - Unilateral primary osteoarthritis, right knee XR knee LT 1V Today M25.562 - Pain in left knee PT Evaluation and Treatment Today M17.11 - Unilateral primary osteoarthritis, right knee Patient Instructions: Scribed for Derek Atkins PA-C, by Paul Campos medical staff director, on 07/25/2024 at 10:15 AM EST.? I, Derek Atkins PA-C, have personally reviewed and agree with the information entered by the scribe. Coding Level of Care Code New Pt Level 3 (63227) Complex EM visit Add On G2211 Diagnoses Patellofemoral arthritis of right knee M17.11
[2024-07-25 10:31] VITALS: BMI 23.4
== END 2024-07-25 11:26 | disposition home or self-care (01) ==
PROVIDERS: PCP Internal Medicine; Visit Provider Physician Assistant
DX: M17.11 Unilateral primary osteoarthritis, right knee (principal)
CPT/HCPCS: 99203; G2211

== ENCOUNTER 2024-09-06 09:35 | Outpatient (AMB) | payer MEDICARE, SELFPAY ==
[2024-09-06 09:49] VITALS: BP 116/68; PULSE 66; BMI 23.4
--- NOTE | 2024-09-06 09:49 | MHC.OFFVIS ---
Vital Signs 09/06/24 09:49 Height 5 ft 3 in Weight 132 lb 4.438 oz BMI 23.4 BP 116/68 Blood Pressure Location Lt brachial Position Sitting Pulse 66 Intake Visit Reasons: 3m follow up Intake Note: 3 month follow-up feeling ok c/o some palpitations waking him up and having numbness in hands Manager Strategy Required: Yes Manager Strategy Services: Manager Strategy Offered & Declined Wood Room Supervisor: Wood Room Supervisor Present Accompanied by: Daughter Allergies No Known Allergies Allergy (Verified 07/25/24 10:30) Medication List - Last Reconciled 09/06/24 by Tan Mcwilliams MD amlodipine 5 mg PO QAM aspirin 81 mg PO QAM atorvastatin 80 mg PO DAILY 90 days blood sugar diagnostic (Freestyle [employer] strips) As directed blood-glucose meter (Freestyle [employer] meter) As directed dulaglutide (Trulicity) mg subcut QWEEK famotidine 20 mg PO BEDTIME Farxiga (dapagliflozin propanediol) 10 mg PO DAILY 90 days NS insulin lispro (Admelog U-100 Insulin lispro) See Protocol units subcut QIDACHS lancets (FreeStyle Lancets) As directed metformin ER mg PO metoprolol succinate ER 50 mg PO DAILY pantoprazole 40 mg PO DAILY sacubitril-valsartan 97-103 mg (Entresto) 1 tab PO BID ticagrelor (Brilinta) 90 mg PO BID HPI Comments Details: Greg comes for follow-up, accompanied by the daughter who acts as patch machine operator. They declined a certified patch machine operator. Patient has been doing well overall. He has not had any recurrent new symptoms of angina. Two days ago he had a poking sensation in the right side of his chest when I was quite different from his heart attack pain. Denies any exertional chest pain. Denies any worsening shortness of breath. No orthopnea, PND, leg edema. No weight gain. Takes all his medications. Last creatinine 1.75 with potassium of 5. In the past he has had higher potassium is currently not on spironolactone therapy. Denies any prolonged palpitations. Denies any lightheadedness, syncope. Blood pressures home are elevated in the 140-150 systolic range. Last echocardiogram in March showed persistent LV systolic dysfunction with LVEF of 35-40% [facility] Medical History Acute HFrEF (heart failure with reduced ejection fraction) Diabetes HLD (hyperlipidemia) HTN (hypertension) Surgical History S/P cardiac catheterization S/P cardiac cath H/O heart artery stent Hx of appendectomy Social History Household Members: None Housing: Apartment Do you presently have visiting nurse or other home services: No Patient Tobacco Use Status: Tobacco use Unknown Review of Systems Const Denies chills, Denies fatigue, Denies fever(s), Denies frequent falls, Denies weakness, Denies weight gain and Denies weight loss ENT Denies dizziness Card Denies chest pain, Denies leg edema, Denies lightheadedness, Denies palpitations, Denies dyspnea, Denies dyspnea on exertion, Denies orthopnea and Denies other (loss of consciousness) Resp Denies cough, Denies dyspnea and Denies dyspnea on exertion GI Denies hematochezia and Denies change in stool character Musc Denies abnormal gait, Denies muscle weakness, Denies numbness, Denies radiating pain into limb and Denies tingling Neuro Denies abnormal gait, Denies dizziness, Denies frequent falls, Denies numbness, Denies tingling and Denies weakness Endo Denies fatigue and Denies palpitations Physical Exam Vital Signs: Last Vital Signs Pulse 66 09/06/24 09:49 BP 116/68 09/06/24 09:49 BMI result Body Mass Index 23.4 Const General: healthy appearing and no acute distress Orientation/consciousness: patient oriented x3 HEENT Head: Yes normal to inspection Eyes General: appearance normal, both eyes and all related structures Neck Neck: Yes normal visual inspection Chest Chest palpation & inspection: normal inspection of the chest Resp Effort & Inspection: normal respiratory effort Auscultation: clear to auscultation bilaterally Cardio Jugular venous distension: no JVD Palpation: abnormal PMI displaced PMI Rate: regular rate Rhythm: regular rhythm Heart sounds: S1 normal heart sound present, S2 normal heart sound present, no click, no gallops, no murmurs and no rubs GI Inspection: Yes normal to inspection Palpation (GI): Soft to palpation Skin General skin exam: no rashes or lesions noted Neuro General: patient oriented x3 Extrem General: Yes normal to inspection Psych Appearance: grossly normal Assessment & Plan Assessment & Plan (1) Ischemic cardiomyopathy: Code(s): I25.5 - Ischemic cardiomyopathy Category: Medical Plan: Ischemic cardiomyopathy with moderate LV systolic dysfunction without overt signs of congestive heart failure. Related to prior LAD territory myocardial infarction. Currently on neurohormonal modulation with metoprolol, Entresto at full dose as well as Farxiga. Has multiple comorbidities including longstanding diabetes, chronic kidney disease. Clinically euvolemic. Does not require further diuretic regimen at this point time. Signs and symptoms of heart failure were discussed. Goals of therapy were discussed including role of neurohormonal modulation. Better blood pressure control is required. Will increase amlodipine to 10 mg daily. Given his underlying chronic kidney disease will refer him to Nephrology for further chronic management. (2) CAD (coronary artery disease): Code(s): I25.10 - Atherosclerotic heart disease of [place] coronary artery without angina pectoris Category: Medical Plan: CAD with stent thrombosis in December to the prior implanted LAD, diagonal stenting. Currently on dual antiplatelet therapy with aspirin Brilinta. Will most likely continue prolonged dual antiplatelet therapy for overall 30 months at a lower dose of Brilinta in December 2024. Continue aggressive risk factor modification. Will obtain lipid panel in near future target goal LDL closer to 55 mg/dL as per guidelines. Continue high-intensity statin therapy. Continue aggressive diabetes management goal hemoglobin A1c less than 7% being pursue through office. I have given him the liberty to give him a sublingual nitroglycerin prescription if need be. Blood pressure is not well optimized will increase amlodipine to 10 mg daily. Advised to continue monitor blood pressure at home maintain a log and bring it for nurse visit in 2 weeks to cross check with our blood pressure machine. Will follow up in the clinic in 4 months time, sooner p.r.n.. Thank you for allowing me to partake in his care Orders: Orders Lipid Panel Today I25.10 - Atherosclerotic heart disease of [place] coronary artery without angina pectoris Basic Metabolic Panel Today I25.10 - Atherosclerotic heart disease of [place] coronary artery without angina pectoris Medications: New amlodipine 10 mg PO DAILY 30 tabs 5RF nitroglycerin (Nitrostat) do not exceed 3 doses per episode 0.4 mg sublingual Q5M PRN 20 tabs 2RF chest pain Coding Level of Care Code Est Pt Level 4 (60423) Complex EM visit Add On G2211 Diagnoses Ischemic cardiomyopathy I25.5 CAD (coronary artery disease) I25.10
== END 2024-09-06 10:17 | disposition home or self-care (01) ==
PROVIDERS: PCP Internal Medicine; Visit Provider Internal Medicine Cardiovascular Disease
DX: I25.5 Ischemic cardiomyopathy (principal); I25.10 Atherosclerotic heart disease of native coronary artery without angina pectoris
CPT/HCPCS: 99214; G2211

== ENCOUNTER → 2024-09-06 09:35 | Outpatient (BNVA) | payer MEDICARE, SELFPAY | PROVIDERS: PCP Internal Medicine; Visit Provider Internal Medicine Cardiovascular Disease | DX: I25.5 Ischemic cardiomyopathy (principal); I25.10 Atherosclerotic heart disease of native coronary artery without angina pectoris | CPT/HCPCS: 99212 ==

== ENCOUNTER 2024-09-13 09:35 | Outpatient (REF) | payer MEDICARE, MEDICAID, SELFPAY ==
[2024-09-13 10:57] LABS: Alanine Aminotransferase 19 U/L (0-40); Albumin Level 4.1 g/dL (3.5-5.0); Alkaline Phosphatase 92 U/L (39-117); Anion Gap 9 (12-20); Aspartate Amino Transferase 23 U/L (5-37); Bilirubin Direct 0.2 mg/dL (0.0-0.5); Bilirubin Total 0.7 mg/dL (0.0-1.0); Blood Urea Nitrogen 14 mg/dL (9-16); Calcium 9.1 mg/dL (8.4-10.2); Carbon Dioxide 27 mmol/L (22-29); Chloride 114 mmol/L (96-108); Cholesterol 113 mg/dL (<200); Estimated Glomerular Filt Rate 39; Glucose Random 126 mg/dL (60-115); HDL Cholesterol 52 mg/dL (>40); LDL Cholesterol Calculated 47 mg/dL (<100); Potassium 4.8 mmol/L (3.3-5.1); Sodium 145 mmol/L (135-145); Total Protein 7.2 g/dL (6.5-8.0); Triglycerides 73 mg/dL (<150)
== END 2024-09-13 09:36 | disposition home or self-care (01) ==
LOC: HO.LAB 09:35
PROVIDERS: Absent Provider Internal Medicine Cardiovascular Disease; PCP Internal Medicine; Visit Provider Internal Medicine
DX: Z00.00 Encounter for general adult medical examination without abnormal findings (principal); I25.10 Atherosclerotic heart disease of native coronary artery without angina pectoris; I50.21 Acute systolic (congestive) heart failure; I25.5 Ischemic cardiomyopathy; I21.4 Non-ST elevation (NSTEMI) myocardial infarction; E11.9 Type 2 diabetes mellitus without complications; I10 Essential (primary) hypertension
CPT/HCPCS: 36415; 80048; 80061; 80076

== ENCOUNTER → 2024-09-17 10:03 | Outpatient (BNVA) | payer MEDICARE, SELFPAY | PROVIDERS: PCP Internal Medicine; Visit Provider Internal Medicine Cardiovascular Disease ==

== ENCOUNTER 2024-09-18 10:40 | Outpatient (RCR) | payer MEDICARE, SELFPAY ==
--- NOTE | 2024-08-22 12:20 | MHC.PT.EP ---
[facility] [place] Office [place] Office [address] [phone] F: [phone] F: [phone] F: [phone] F: [phone] Physical Therapy Plan of Care Date of Evaluation: 08/22/24 Date of Surgery: Diagnosis: Patellofemoral arthritis of RIGHT knee (MD Dx) RS Assessment: Greg is a 64 yo Hungarian speaking male who was referred by Derek Atkins PA-C of [facility] for Dx of patellofemoral OA of RIGHT knee. Impairments include decreased and painful R knee flexion, decreased glute and quad strength, antalgic gait pattern, and painful navigation of stairs resulting in their inability to bend, squat, or navigate stairs without pain. These deficits are impacting their ability to participate in household ADLs and community ambulation. Pt will benefit from skilled PT to address impairments and meet their goals. Frequency and Duration: The patient will be seen 2x/week for 4 weeks Short Term Goals: 2 weeks Patient will be able to perform HEP to independently manage condition. Patient will demonstrate heel toe rocker during gait to decrease strain on knee. [place] Goals: 4 weeks Patient will increase R knee flexion ROM to 125 degrees without pain to be able to ambulate 50 ft without compensatory pattern. Patient will increase R glute med strength to 4/5 to be able to navigate stairs without limitation. Treatment Plan: Modalities to reduce pain, spasms and effusion. Manual therapy to restore motion and function. Therapeutic exercise to improve strength and flexibility. Neuromuscular re-education for posture and balance. Therapeutic activities to return to functional activities of daily living. Electronically signed by: Nakia Cevallos, PT, DPT Please sign and return to therapist. Thank you for your referral.
--- NOTE | 2024-09-18 14:53 | MHC.PT.DC ---
[facility] [place] Office [place] Office [place] Office [address] [phone] F: [phone] F: [phone] F: [phone] F: [phone] Physical Therapy Discharge Report Diagnosis: Patellofemoral arthritis of RIGHT knee ( Dx) RS Date of Surgery: Date of Evaluation: 08/22/24 Date of Discharge: 09/18/24 Treatments to Date: 8 Cancellations to Date: No Shows to Date: Discharge Status: Achieved Goals Improved Function Independent with HEP Discharge Summary: Greg presents with full strength in R knee and goo, functional AROM R knee with 125 degrees of knee flexion. He has been able to resolve his familiar pain with exercises. He is appropriate for discharge and agrees to discharge plan. Electronically signed by: Nakia Cevallos, PT, DPT Please sign and return to therapist. Thank you for your referral.
== END 2024-09-18 14:53 | disposition home or self-care (01) ==
LOC: HO.PT 10:40
PROVIDERS: PCP Internal Medicine; Visit Provider Physician Assistant
DX: M17.11 Unilateral primary osteoarthritis, right knee (principal)
CPT/HCPCS: 97110; 97161; 97530; 97535

== ENCOUNTER 2024-09-25 13:38 | Outpatient (AMB) | payer MEDICARE, SELFPAY ==
--- NOTE | 2024-09-25 13:39 | HO.NEPHOV ---
Vital Signs 09/25/24 13:40 Height 5 ft 3 in Weight 138 lb BMI 24.4 BP 116/70 Blood Pressure Location Lt brachial Position Sitting Pulse 71 Pulse Source Pulse Oximeter Pulse Oximetry (%) 99 Oxygen Delivery Method Room Air Intake Visit Reasons: INP: Chronic kidney disease/ Conf Hydraulic Technician Required: No Accompanied by: Daughter Allergies No Known Allergies Allergy (Verified 09/25/24 13:42) PFSH Medical History Acute HFrEF (heart failure with reduced ejection fraction) Diabetes HLD (hyperlipidemia) HTN (hypertension) Surgical History S/P cardiac catheterization S/P cardiac cath H/O heart artery stent Hx of appendectomy Social History Household Members: None Housing: Apartment Do you presently have visiting nurse or other home services: No Patient Tobacco Use Status: Tobacco use Unknown Results Reviewed Nephrology Results: Sodium 145 mmol/L (135-145) 09/13/24 Potassium 4.8 mmol/L (3.3-5.1) 09/13/24 Chloride 114 mmol/L (96-108) H 09/13/24 Carbon Dioxide 27 mmol/L (22-29) 09/13/24 BUN 14 mg/dL (9-16) 09/13/24 Creatinine 1.77 mg/dL (0.5-1.4) H 09/13/24 Calcium 9.1 mg/dL (8.4-10.2) 09/13/24 Assessment & Plan Assessment & Plan Orders: Orders US renal BI Today N18.9 - Chronic kidney disease, unspecified UA and rflx microscopic Today N18.9 - Chronic kidney disease, unspecified Creatinine Urine Today N18.9 - Chronic kidney disease, unspecified Total Protein Urine Random Today N18.9 - Chronic kidney disease, unspecified Coding
--- NOTE | 2024-09-25 13:39 | HO.NEPHOV ---
Vital Signs 09/25/24 13:40 Height 5 ft 3 in Weight 138 lb BMI 24.4 BP 116/70 Blood Pressure Location Lt brachial Position Sitting Pulse 71 Pulse Source Pulse Oximeter Pulse Oximetry (%) 99 Oxygen Delivery Method Room Air Intake Visit Reasons: INP: Chronic kidney disease/ Conf Allergies No Known Allergies Allergy (Verified 09/25/24 13:42) Medication List - Last Reconciled 09/25/24 by Yomi Solis MD aspirin 81 mg PO QAM atorvastatin 80 mg PO DAILY 90 days blood sugar diagnostic (Freestyle [employer] strips) As directed blood-glucose meter (Freestyle [employer] meter) As directed dulaglutide (Trulicity) mg subcut QWEEK famotidine 20 mg PO BEDTIME lancets (FreeStyle Lancets) As directed metoprolol succinate ER 50 mg PO DAILY nitroglycerin (Nitrostat) 0.4 mg sublingual Q5M PRN pantoprazole 40 mg PO DAILY sacubitril-valsartan 97-103 mg (Entresto) 1 tab PO BID ticagrelor (Brilinta) 90 mg PO BID HPI Comments Details: 62-year-old man with a history of longstanding diabetes mellitus and coronary disease referred for chronic kidney disease. Serum creatinine has been between 1.5-1.7 mg/dL. He was accompanied by his daughter. She was able to interpret and they did not want an freelance interpreter/translator service. Greg has had diabetes mellitus for a long time. No urine studies are available. Urine protein excretion has not been quantitated. However he tells me that he sees lot of foaming during urination. He has heart failure with preserved ejection fraction he is currently on a Entresto. [facility] Medical History Acute HFrEF (heart failure with reduced ejection fraction) Diabetes HLD (hyperlipidemia) HTN (hypertension) Surgical History S/P cardiac catheterization S/P cardiac cath H/O heart artery stent Hx of appendectomy Social History Household Members: None Housing: Apartment Do you presently have visiting nurse or other home services: No Patient Tobacco Use Status: Tobacco use Unknown Review of Systems Const Denies fever(s) and Denies weight loss Card Denies chest pain Resp Denies cough and Denies hemoptysis GI Denies abdominal pain, Denies diarrhea and Denies nausea Musc Denies back pain Neuro Denies focal weakness Physical Exam Vital Signs: Last Vital Signs Pulse 71 09/25/24 13:40 BP 116/70 09/25/24 13:40 Pulse Ox 99 09/25/24 13:40 Oxygen Delivery Method Room Air 09/25/24 13:40 BMI result Body Mass Index 24.4 Const General: comfortable; No acute distress Orientation/consciousness: patient oriented x3 Eyes General: appearance normal, both eyes and all related structures Visual Matos: normal visual matos by confrontation Neck Neck: Yes supple and Yes no JVD Resp Effort & Inspection: normal respiratory effort and respiratory effort not decreased Auscultation: rhonchi Cardio Palpation: no palpable S3 and no palpable S4 Heart sounds: no rubs GI Inspection: Yes normal to inspection Palpation (GI): Soft to palpation Percussion: Yes normal to percussion Auscultation: normal bowel sounds General: Yes no CVA tenderness Back/Spine/Pelvis Back: no CVA tenderness Skin General skin exam: no petechiae and no purpura Neuro General: patient oriented x3 and no focal motor deficits Extrem General: No clubbing and No edema Results Reviewed Nephrology Results: Sodium 145 mmol/L (135-145) 09/13/24 Potassium 4.8 mmol/L (3.3-5.1) 09/13/24 Chloride 114 mmol/L (96-108) H 09/13/24 Carbon Dioxide 27 mmol/L (22-29) 09/13/24 BUN 14 mg/dL (9-16) 09/13/24 Creatinine 1.77 mg/dL (0.5-1.4) H 09/13/24 Calcium 9.1 mg/dL (8.4-10.2) 09/13/24 Assessment & Plan Assessment & Plan (1) CKD (chronic kidney disease): Code(s): N18.9 - Chronic kidney disease, unspecified Category: Medical (2) CAD (coronary artery disease): Code(s): I25.10 - Atherosclerotic heart disease of [place] coronary artery without angina pectoris Category: Medical (3) Ischemic cardiomyopathy: Code(s): I25.5 - Ischemic cardiomyopathy Category: Medical (4) Anemia: Code(s): D64.9 - Anemia, unspecified Category: Medical Plan Stage 3 chronic kidney disease in the setting of longstanding diabetes mellitus and coronary disease. Greg probably has diabetic kidney disease. Other possibilities including obstructive uropathy should be ruled out. Glomerular nephritis interstitial disease seem unlikely nevertheless we will rule that out. Based on the available data it appears that his renal function is rather stable. Recommendations Keep on low-sodium diet Maintain blood pressure less than 130/80 Continue overt nephrotoxic agents. Obtain 24 urine collection for creatinine clearance. Check urine protein creatinine ratio along with urinalysis. Check renal ultrasonogram to assess echogenicity and to rule out obstruction. Further workup will be based on the outcome of the above baseline investigations returned to the office in the next few weeks. Orders: Orders US renal BI Today N18.9 - Chronic kidney disease, unspecified UA and rflx microscopic Today N18.9 - Chronic kidney disease, unspecified Creatinine Urine Today N18.9 - Chronic kidney disease, unspecified Creatinine Clearance Urine 24U Today N18.9 - Chronic kidney disease, unspecified Protein, 24 Hr Urine Group Today N18.9 - Chronic kidney disease, unspecified Ferritin Today D64.9 - Anemia, unspecified, N18.9 - Chronic kidney disease, unspecified Total Protein Urine Random Today N18.9 - Chronic kidney disease, unspecified Creatinine, 24 Hr Group Today N18.9 - Chronic kidney disease, unspecified Complete Blood Count no Diff Today D64.9 - Anemia, unspecified, N18.9 - Chronic kidney disease, unspecified IRON PROFILE Today D64.9 - Anemia, unspecified, N18.9 - Chronic kidney disease, unspecified Coding Level of Care Code New Pt Level 5 (49109) Diagnoses CKD (chronic kidney disease) N18.9 CAD (coronary artery disease) I25.10 Ischemic cardiomyopathy I25.5 Anemia D64.9
[2024-09-25 13:40] VITALS: BP 116/70; PULSE 71; O2SAT 99; BMI 24.4
== END 2024-09-25 13:57 | disposition home or self-care (01) ==
LOC: HO.HKAM 13:38
PROVIDERS: PCP Internal Medicine; Referring Provider Internal Medicine Cardiovascular Disease; Visit Provider Internal Medicine Hypertension Specialist
DX: I13.0 Hypertensive heart and chronic kidney disease with heart failure and stage 1 through stage 4 chronic kidney disease, or unspecified chronic kidney disease (principal); N18.30 Chronic kidney disease, stage 3 unspecified; I50.20 Unspecified systolic (congestive) heart failure; I25.10 Atherosclerotic heart disease of native coronary artery without angina pectoris; I25.5 Ischemic cardiomyopathy; D64.9 Anemia, unspecified
CPT/HCPCS: 99205

== ENCOUNTER → 2024-09-25 13:38 | Outpatient (BNVA) | payer MEDICARE, SELFPAY | PROVIDERS: PCP Internal Medicine; Referring Provider Internal Medicine Cardiovascular Disease; Visit Provider Internal Medicine Hypertension Specialist | DX: E11.22 Type 2 diabetes mellitus with diabetic chronic kidney disease (principal); I25.10 Atherosclerotic heart disease of native coronary artery without angina pectoris; I25.5 Ischemic cardiomyopathy; N18.9 Chronic kidney disease, unspecified; D64.9 Anemia, unspecified | CPT/HCPCS: 99202 ==

== ENCOUNTER 2024-10-04 11:01 | Outpatient (REF) | payer MEDICARE, SELFPAY ==
--- OUTSIDE RECORDS SUMMARY | 2024-10-04 13:09 | XMS_ITS | Data Portability ---
Author Organization [facility], , [facility] Address [address] [place] [address] Care Team Providers Care Repairer Handtools Name Role Phone HARRIS BASILIO Internal Medicine [phone] ERIC HELLER General Surgeon Assessment No assessment recorded. Plan of Treatment Reminders Order Date Submit Date Provider Last Modified By Organization Details Last Modified Time Details Appointments None recorded. Lab culture, urine 2015 016 [facility], [address] [place] [address], [id number], 6 04:07:56 hepatic function panel, serum - add on. 2015 016 [facility], [address] [place] [address], [id number], 6 04:08:03 Referral diabetes management referral - lithuanian speaker with elevated blood sugar, likely needs injectables , please assist with next steps for blood glucose management. 2015 016 Not available 6 04:08:57 physical therapist referral - pt with right scapular pain and some right shoulder pain with movements. please assist with rehabilitat ion 2015 016 [facility], [address] [place] [address], [id number], 6 04:08:57 Procedures None recorded. Surgeries None recorded. Imaging None recorded. Medication Orders glipizide 10 mg tablet 2015 016 [facility] ([facility] [address] [place], [id number], 6 04:06:44 metformin 1,000 mg tablet 2015 016 [facility] ([facility]), [address] [place], [id number], 6 04:05:56 lisinopril 2.5 mg tablet 2015 016 [facility] [address] ([facility]), [address] [place], [id number], 6 04:06:25 gabapentin 300 mg capsule 2015 016 [facility] ([facility]), [address] [place], [id number], 6 04:06:27 metformin ER 1,000 mg tablet,exte nded release 24hr (osmotic) 2015 016 [facility] ([facility]), [address] [place], [id number], 6 04:07:36 Patient TargetsNo targets recorded. Patient Instructions Encounter Date Encounter Id Patient Instructions Last Modified By Organization Details Last Modified Time 05/03/2016 [id number] Spent 25 minutes of [id number] time, of which greater than 50% was in counseling. After a discussion of treatment options, which included consideration of best practices and patient preferences, the above treatment plan and objectives were adopted. [email or web address] Not available 05/03/2016 23:18:31 07/04/2016 [id number] -Start testing blood sugar more often, at least once a day and alternate the time of day between a fasting and 2 hours after meals. -Continue to bring glucose meter in for download with all appointments. -Continue Metformin ER 1,000 mg once a day and Glipizide 10 mg, once a day. -Start watching your food intake and consider counting carbohydrates or follow The Plate Method . -STOP drinking regular soda, stop eating marshmallows. -Will review with Kyra the cause of your stomach pain before considering GLP-1 medicaitons and then we will contact you once it has been discussed. -Please call with any questions or concerns. [email or web address] Not available 07/04/2016 16:01:55 FU in 1 month fo r diabetes education. [email or web address] Not available 07/04/2016 15:53:50 Reason for Referral pt with right scapular pain and some right shoulder pain with movements. please assist with rehabilitation Referring Physician: Kyra Mauro, Family Medicine, Encounter Date: 06/22/2016 lithuanian speaker with elevate d blood sugar, likely needs injectables, please assist with next steps for blood glucose management. Referring Physician: Kyra Mauro Family Medicine, Encounter Date: 06/22/2016 Results Created Date Observation Date Name Description Value Unit Range Abnormal Flag Note LastModifiedBy Organization Detail LastModifiedTime 04/12/20 16 04/12/2016 CBC w/ auto diff WBC 5.8 K/uL 3.4-11 .2 Not Available [address], [address], 04/12/2016 01:57:38 04/12/20 16 04/12/2016 CBC w/ auto diff RBC 4.71 M/uL 4.50-5 .50 Not Available [address], [address], 04/12/2016 01:57:38 04/12/20 16 04/12/2016 CBC w/ auto diff hemoglobin 13.8 g/dL 13.0-1 7.0 Not Available [address], [address], 04/12/2016 01:57:38 04/12/20 16 04/12/2016 CBC w/ auto diff hematocrit 38.1 % 40.0-5 1.0 low Not Available [address], [address], 04/12/2016 01:57:38 04/12/20 16 04/12/2016 CBC w/ auto diff MCV 80.9 fL 79.0-9 8.0 Not Available [address], [address], 04/12/2016 01:57:38 04/12/20 16 04/12/2016 CBC w/ auto diff MCH 29.3 pg 27.0-3 4.8 Not Available [address], [address], 04/12/2016 01:57:38 04/12/20 16 04/12/2016 CBC w/ auto diff MCHC 36.2 g/dL 31.5-3 6.0 high Not Available [address], [address], 04/12/2016 01:57:38 04/12/20 16 04/12/2016 CBC w/ auto diff RDW 12.9 % 10.8-1 4.6 Not Available [address], [address], 04/12/2016 01:57:38 04/12/20 16 04/12/2016 CBC w/ auto diff MPV 10.4 fL 9.4-12 .4 Not Available [address], [address], 04/12/2016 01:57:38 04/12/20 16 04/12/2016 CBC w/ auto diff platelet count 204 K/uL 130-40 0 Not Available [address], [address], 04/12/2016 01:57:38 04/12/20 16 04/12/2016 CBC w/ auto diff neutrophils 49.9 % 45.3-7 7.7 Not Available [address], [address], 04/12/2016 01:57:38 04/12/20 16 04/12/2016 CBC w/ auto diff lymphocytes 35.0 % 12.3-3 9.7 Not Available [address], [address], 04/12/2016 01:57:38 04/12/20 16 04/12/2016 CBC w/ auto diff monocytes 10.8 % 4.1-12 .8 Not Available [address], [address], 04/12/2016 01:57:38 04/12/20 16 04/12/2016 CBC w/ auto diff eosinophils 3.80 % 0.00-7 .20 Not Available [address], [address], 04/12/2016 01:57:38 04/12/20 16 04/12/2016 CBC w/ auto diff basophils 0.30 % 0.00-2 .80 Not Available [address], [address], 04/12/2016 01:57:38 04/12/20 16 04/12/2016 CBC w/ auto diff absolute neutrophil 2.9 K/uL 1.4-7. 7 Not Available [address], [address], 04/12/2016 01:57:38 04/12/20 16 04/12/2016 CBC w/ auto diff absolute lymphocyte 2.0 K/uL 0.6-3. 2 Not Available [address], [address], 04/12/2016 01:57:38 04/12/20 16 04/12/2016 CBC w/ auto diff absolute monocytes 0.6 K/uL 0.1-0. 6 Not Available [address], [address], 04/12/2016 01:57:38 04/12/20 16 04/12/2016 CBC w/ auto diff absolute eosinophil 0.22 K/uL 0.01-0 .50 Not Available [address], [address], 04/12/2016 01:57:38 04/12/20 16 04/12/2016 CBC w/ auto diff absolute basophils 0.02 K/uL Not Available [address], [address], 04/12/2016 01:57:38 04/12/20 16 04/12/2016 CBC w/ auto diff immature granulocyte 0.20 % 0.00-0 .50 Not Available [address], [address], 04/12/2016 01:57:38 04/12/20 16 04/12/2016 CBC w/ auto diff absolute immature granulocyte 0.01 K/uL 0.00-0 .03 Not Available [address], [address], 04/12/2016 01:57:38 04/12/20 16 04/12/2016 tropo lenore T, serum troponin T <0.010 NG/mL 0.000- 0.030 Not Available [address], [address], 04/12/2016 02:21:34 04/12/20 16 04/12/2016 CMP, serum or plasm a glucose 289 mg/dL 70-99 high Not Available [address], [address], 04/12/2016 02:21:35 04/12/20 16 04/12/2016 CMP, serum or plasm a BUN 10 mg/dL 6-19 Not Available [address], [address], 04/12/2016 02:21:35 04/12/2004/12/2016 CMP, serum or plasm a creatinine 0.9 mg/dL 0.5-1. 5 Not Available [address], [address], 04/12/2016 02:21:35 04/12/20 16 04/12/2016 CMP, serum or plasm a GFR >60 mL/mi n >60 NKDEP (Althea onal Kidne y Disea se Educa tion Progr am) does not endor se the use of the MDRD (Pina ficat ion of Diet in Renal Disea se) equat ion for estim ating GFR in patie nts that are not betwe en the ages of 18 and 70. Not Available [address], [address], 04/12/2016 02:21:35 04/12/20 16 04/12/2016 CMP, serum or plasm a sodium 137 mEq/L 133-14 6 Not Available [address], [address], 04/12/2016 02:21:35 04/12/20 16 04/12/2016 CMP, serum or plasm a potassium 4.1 mEq/L 3.3-5. 1 Not Available [address], [address], 04/12/2016 02:21:35 04/12/20 16 04/12/2016 CMP, serum or plasm a chloride 99 mEq/L 96-108 Not Available [address], [address], 04/12/2016 02:21:35 04/12/20 16 04/12/2016 CMP, serum or plasm a CO2 26 mEq/L 21-35 Not Available [address], [address], 04/12/2016 02:21:35 04/12/20 16 04/12/2016 CMP, serum or plasm a calcium 9.4 mg/dL 8.4-10 .3 Not Available [address], [address], 04/12/2016 02:21:35 04/12/20 16 04/12/2016 CMP, serum or plasm a total bilirubin 0.6 mg/dL 0.0-1. 2 Not Available [address], [address], 04/12/2016 02:21:35 04/12/20 16 04/12/2016 CMP, serum or plasm a alkaline phosphatase 87 U/L 39-117 Not Available [address], [address], 04/12/2016 02:21:35 04/12/20 16 04/12/2016 CMP, serum or plasm a AST (SGOT) 13 U/L 0-37 Not Available [address], [address], 04/12/2016 02:21:35 04/12/2004/12/2016 CMP, serum or plasm a ALT (SGPT) 19 U/L 0-40 Not Available [address], [address], 04/12/2016 02:21:35 04/12/2004/12/2016 CMP, serum or plasm a total protein 6.9 g/dL 6.5-8. 0 Not Available [address], [address], 04/12/2016 02:21:35 04/12/20 16 04/12/2016 CMP, serum or plasm a albumin 4.0 g/dL 3.9-4. 8 Not Available [address], [address], 04/12/2016 02:21:35 04/12/2004/12/2016 CMP, serum or plasm a globulin 2.9 gm/dL 1.0-4. 8 Not Available [address], [address], 04/12/2016 02:21:35 04/12/2004/12/2016 CMP, serum or plasm a A/G ratio 1.4 gm/dL 1.0-4. 8 Not Available [address], [address], 04/12/2016 02:21:35 04/12/20 16 04/12/2016 CMP, serum or plasm a anion gap 16 mEq/L 10-20 Not Available [facility] [address] [facility], [place], [address], 04/12/2016 02:21:35 05/31/20 16 05/31/2016 POC UA glu UA 1+ abnormal Not Available [address], [address], 05/31/2016 16:34:04 05/31/20 16 05/31/2016 POC UA clarity UA Slight ly Cloudy Not Available [address], [address], 05/31/2016 16:34:04 05/31/20 16 05/31/2016 POC UA uro UA 1.0000 Not Available [address], [address], 05/31/2016 16:34:04 05/31/20 16 05/31/2016 POC UA ket UA Negati ve Not Available [address], [address], 05/31/2016 16:34:04 05/31/20 16 05/31/2016 POC UA pro UA Trace abnormal Not Available [address], [address], 05/31/2016 16:34:04 05/31/20 16 05/31/2016 POC UA nit UA Negati ve Not Available [address], [address], 05/31/2016 16:34:04 05/31/20 16 05/31/2016 POC UA neida UA Negati ve Not Available [address], [address], 05/31/2016 16:34:04 05/31/20 16 05/31/2016 POC UA pH UA 6.0000 Not Available [address], [address], 05/31/2016 16:34:04 05/31/20 16 05/31/2016 POC UA SG UA >=1.03 00 Not Available [address], [address], 05/31/2016 16:34:04 05/31/20 16 05/31/2016 POC UA color UA Dark yellow Not Available [address], [address], 05/31/2016 16:34:04 05/31/20 16 05/31/2016 POC UA blo UA Negati ve Not Available [address], [address], 05/31/2016 16:34:04 05/31/20 16 05/31/2016 POC UA lisa UA Negati ve Not Available [address], [address], 05/31/2016 16:34:04 05/31/20 16 06/02/2016 cultu re, urine culture, urine, routine CULTU RE, URINE , ROUTI NE MICRO NUMBE R: [id number] TEST STATU S: FINAL SPECI MEN SOURC E: URINE SPECI MEN QUALI TY: ADEQU ATE RESUL T: No Growt h Not Available [facility] [address] [place] [address], [address], 06/02/2016 00:43:22 06/02/20 16 06/02/2016 BMP, serum or plasm a glucose 218 mg/dL 70-100 high Not Available [address], [address], 06/02/2016 11:19:48 06/02/20 16 06/02/2016 BMP, serum or plasm a BUN 8 mg/dL 7-18 Not Available [address], [address], 06/02/2016 11:19:48 06/02/20 16 06/02/2016 BMP, serum or plasm a creatinine 0.9 mg/dL 0.8-1. 3 Not Available [address], [address], 06/02/2016 11:19:48 06/02/20 16 06/02/2016 BMP, serum or plasm a B/C 8.9 ratio Not Available [address], [address], 06/02/2016 11:19:48 06/02/20 16 06/02/2016 BMP, serum or plasm a GFR -non 92.4 mL/mi n Recom marychuy d GFR by the Natio nal Kidne y Found ation >60 mL/mi n/1.7 3m2 - Mariam l <60 mL/mi n/1.7 3m2 - Chron ic Kidne y Disea se <15 mL/mi n/1.7 3m2 - Kidne y Failu re Not Available [address], [address], 06/02/2016 11:19:48 06/02/20 16 06/02/2016 BMP, serum or plasm a GFR - if 111.9 mL/mi n For Afric an Ameri can patie nts: Resul ts Multi plied by 1.21 Not Available [address], [address], 06/02/2016 11:19:48 06/02/20 16 06/02/2016 BMP, serum or plasm a sodium 144 mmol/ L 136-14 5 Not Available [address], [address], 06/02/2016 11:19:48 06/02/20 16 06/02/2016 BMP, serum or plasm a potassium 4.5 mmol/ L 3.5-5. 1 Not Available [address], [address], 06/02/2016 11:19:48 06/02/20 16 06/02/2016 BMP, serum or plasm a chloride 105 mmol/ L 96-107 Not Available [address], [address], 06/02/2016 11:19:48 06/02/20 16 06/02/2016 BMP, serum or plasm a anion gap 10.1 5.0-15 .0 Not Available [address], [address], 06/02/2016 11:19:48 06/02/20 16 06/02/2016 BMP, serum or plasm a CO2 29 mmol/ L 21-32 Not Available [address], [address], 06/02/2016 11:19:48 06/02/20 16 06/02/2016 BMP, serum or plasm a calcium 9.3 mg/dL 8.5-10 .3 Not Available [address], [address], 06/02/2016 11:19:48 06/02/20 16 06/02/2016 lipid panel , serum cholesterol 184 mg/dL <200 mg/dl Jonathon able 200-2 39 mg/dl Borde rline High >240 mg/dl High Not Available [address], [address], 06/02/2016 11:19:49 06/02/2006/02/2016 lipid panel , serum triglyceride s 116 mg/dL <150 mg/dL Mariam l 150-1 99 mg/dL Borde rline High 200-4 99 mg/dL High >500 mg/dL Very High Not Available [address], [address], 06/02/2016 11:19:49 06/02/2006/02/2016 lipid panel , serum direct HDL 45 mg/dL Not Available [address], [address], 06/02/2016 11:19:49 06/02/20 16 06/02/2016 LDL, calcu lated , serum (OBS) LDL - calculated 115.8 RISK CATEG ORY LDL GOAL _ CHD or CHD Risk Equiv alent s <100 mg/dl (10-y ear risk >20%) 2+ Risk Facto rs <130 mg/dl (10-y ear risk <= 20%) 0-1 Risk Facto r? <160 mg/dl ? Almos t all peopl e with 0-1 risk facto r have a 10 year risk <10%, thus 10 year risk asses ment in peopl e with 0-1 risk facto r is not sergocristel arash. Not Available [address], [address], 06/02/2016 11:19:49 06/02/20 16 06/02/2016 HbA1c (hemo globi n A1c), blood hemoglobin A1C 7.7 % 4.8-6. 0 high Goal: <7% in Patie nts with Diabe brisa Not Available [address], [address], 06/02/2016 11:26:54 06/02/20 16 06/02/2016 HbA1c (hemo globi n A1c), blood estimated average glucose 174.3 mg/dL Not Available [address], [address], 06/02/2016 11:26:54 06/02/20 16 06/02/2016 micro album in, urine microalbumin 19.7 mg/L 1.3-20 .0 Not Available [address], [address], 06/02/2016 12:41:00 06/02/20 16 06/02/2016 micro album in, urine creatinine urine 201.4 mg/dL 30.0-1 25.0 high Not Available [address], [address], 06/02/2016 12:41:00 06/02/20 16 06/02/2016 micro album in, urine microalb/cre at ratio 9.8 mg/g_ creat 0.0-29 .0 Not Available [address], [place], [address], 06/02/2016 12:41:00 03/08/20 17 03/08/2017 urina lysis , refle x cultu re color Yellow Not Available [address], [address], 03/08/2017 21:57:08 03/08/20 17 03/08/2017 urina lysis , refle x cultu re appearance Clear Not Available [address], [address], 03/08/2017 21:57:08 03/08/20 17 03/08/2017 urina lysis , refle x cultu re specific gravity <=1.00 5 1.005- 1.030 Not Available [address], [address], 03/08/2017 21:57:08 03/08/20 17 03/08/2017 urina lysis , refle x cultu re pH 6.0 5.0-7. 0 Not Available [address], [address], 03/08/2017 21:57:08 03/08/20 17 03/08/2017 urina lysis , refle x cultu re protein Negati ve negati ve Not Available [address], [address], 03/08/2017 21:57:08 03/08/20 17 03/08/2017 urina lysis , refle x cultu re glucose 3+ negati ve abnormal Not Available [address], [address], 03/08/2017 21:57:08 03/08/20 17 03/08/2017 urina lysis , refle x cultu re ketones Negati ve negati ve Not Available [address], [address], 03/08/2017 21:57:08 03/08/20 17 03/08/2017 urina lysis , refle x cultu re bilirubin Negati ve negati ve Not Available [address], [address], 03/08/2017 21:57:08 03/08/20 17 03/08/2017 urina lysis , refle x cultu re blood Negati ve negati ve Not Available [address], [address], 03/08/2017 21:57:08 03/08/20 17 03/08/2017 urina lysis , refle x cultu re nitrite Negati ve negati ve Not Available [address], [address], 03/08/2017 21:57:08 03/08/20 17 03/08/2017 urina lysis , refle x cultu re leukocyte esterase Negati ve negati ve Not Available [address], [address], 03/08/2017 21:57:08 03/08/20 17 03/08/2017 CBC w/ auto diff WBC 5.6 K/uL 3.4-11 .2 Not Available [address], [address], 03/08/2017 21:57:30 03/08/20 17 03/08/2017 CBC w/ auto diff RBC 4.86 M/uL 4.50-5 .50 Not Available [address], [address], 03/08/2017 21:57:30 03/08/20 17 03/08/2017 CBC w/ auto diff hemoglobin 14.0 g/dL 13.0-1 7.0 Not Available [address], [address], 03/08/2017 21:57:30 03/08/20 17 03/08/2017 CBC w/ auto diff hematocrit 38.7 % 40.0-5 1.0 low Not Available [address], [address], 03/08/2017 21:57:30 03/08/20 17 03/08/2017 CBC w/ auto diff MCV 79.6 fL 79.0-9 8.0 Not Available [address], [address], 03/08/2017 21:57:30 03/08/20 17 03/08/2017 CBC w/ auto diff MCH 28.8 pg 27.0-3 4.8 Not Available [address], [address], 03/08/2017 21:57:30 03/08/20 17 03/08/2017 CBC w/ auto diff MCHC 36.2 g/dL 31.5-3 6.0 high Not Available [address], [address], 03/08/2017 21:57:30 03/08/20 17 03/08/2017 CBC w/ auto diff RDW 12.9 % 10.8-1 4.6 Not Available [address], [address], 03/08/2017 21:57:30 03/08/20 17 03/08/2017 CBC w/ auto diff MPV 10.8 fL 9.4-12 .4 Not Available [address], [address], 03/08/2017 21:57:30 03/08/20 17 03/08/2017 CBC w/ auto diff platelet count 207 K/uL 130-40 0 Not Available [address], [address], 03/08/2017 21:57:30 03/08/20 17 03/08/2017 CBC w/ auto diff neutrophils 50.8 % 45.3-7 7.7 Not Available [address], [address], 03/08/2017 21:57:30 03/08/20 17 03/08/2017 CBC w/ auto diff lymphocytes 32.9 % 12.3-3 9.7 Not Available [address], [address], 03/08/2017 21:57:30 03/08/20 17 03/08/2017 CBC w/ auto diff monocytes 13.2 % 4.1-12 .8 high Not Available [address], [address], 03/08/2017 21:57:30 03/08/20 17 03/08/2017 CBC w/ auto diff eosinophils 2.70 % 0.00-7 .20 Not Available [address], [address], 03/08/2017 21:57:30 03/08/20 17 03/08/2017 CBC w/ auto diff basophils 0.20 % 0.00-2 .80 Not Available [address], [address], 03/08/2017 21:57:30 03/08/20 17 03/08/2017 CBC w/ auto diff absolute neutrophil 2.9 K/uL 1.4-7. 7 Not Available [address], [address], 03/08/2017 21:57:30 03/08/20 17 03/08/2017 CBC w/ auto diff absolute lymphocyte 1.8 K/uL 0.6-3. 2 Not Available [address], [address], 03/08/2017 21:57:30 03/08/20 17 03/08/2017 CBC w/ auto diff absolute monocytes 0.7 K/uL 0.1-0. 6 high Not Available [address], [address], 03/08/2017 21:57:30 03/08/20 17 03/08/2017 CBC w/ auto diff absolute eosinophil 0.15 K/uL 0.01-0 .50 Not Available [address], [address], 03/08/2017 21:57:30 03/08/20 17 03/08/2017 CBC w/ auto diff absolute basophils 0.01 K/uL Not Available [address], [address], 03/08/2017 21:57:30 03/08/20 17 03/08/2017 CBC w/ auto diff immature granulocyte 0.20 % 0.00-0 .50 Not Available [address], [address], 03/08/2017 21:57:30 03/08/20 17 03/08/2017 CBC w/ auto diff absolute immature granulocyte 0.01 K/uL 0.00-0 .03 Not Available [address], [address], 03/08/2017 21:57:30 03/08/20 17 03/08/2017 CMP, serum or plasm a glucose 499 mg/dL 70-99 high Not Available [address], [address], 03/08/2017 22:21:58 03/08/20 17 03/08/2017 CMP, serum or plasm a BUN 6 mg/dL 6-19 Not Available [address], [address], 03/08/2017 22:21:58 03/08/20 17 03/08/2017 CMP, serum or plasm a creatinine 1.1 mg/dL 0.5-1. 5 Not Available [address], [address], 03/08/2017 22:21:58 03/08/20 17 03/08/2017 CMP, serum or plasm a GFR >60 mL/mi n >60 NKDEP (Althea onal Kidne y Disea se Educa tion Progr am) does not endor se the use of the MDRD (Pina ficat ion of Diet in Renal Disea se) equat ion for estim ating GFR in patie nts that are not betwe en the ages of 18 and 70. Not Available [address], [address], 03/08/2017 22:21:58 03/08/2003/08/2017 CMP, serum or plasm a sodium 136 mEq/L 133-14 6 Not Available [address], [address], 03/08/2017 22:21:58 03/08/20 17 03/08/2017 CMP, serum or plasm a potassium 4.2 mEq/L 3.3-5. 2 Not Available [address], [address], 03/08/2017 22:21:58 03/08/2003/08/2017 CMP, serum or plasm a chloride 98 mEq/L 96-108 Not Available [address], [address], 03/08/2017 22:21:58 03/08/2003/08/2017 CMP, serum or plasm a CO2 27 mEq/L 21-35 Not Available [address], [address], 03/08/2017 22:21:58 03/08/2003/08/2017 CMP, serum or plasm a calcium 9.4 mg/dL 8.4-10 .3 Not Available [address], [address], 03/08/2017 22:21:58 03/08/2003/08/2017 CMP, serum or plasm a total bilirubin 0.4 mg/dL 0.0-1. 2 Not Available [address], [address], 03/08/2017 22:21:58 03/08/2003/08/2017 CMP, serum or plasm a alkaline phosphatase 115 U/L 39-117 Not Available [address], [address], 03/08/2017 22:21:58 03/08/20 17 03/08/2017 CMP, serum or plasm a AST (SGOT) 11 U/L 0-37 Not Available [address], [address], 03/08/2017 22:21:58 03/08/20 17 03/08/2017 CMP, serum or plasm a ALT (SGPT) 14 U/L 0-40 Not Available [address], [address], 03/08/2017 22:21:58 03/08/20 17 03/08/2017 CMP, serum or plasm a total protein 7.4 g/dL 6.5-8. 0 Not Available [address], [address], 03/08/2017 22:21:58 03/08/20 17 03/08/2017 CMP, serum or plasm a albumin 4.1 g/dL 3.9-4. 8 Not Available [address], [address], 03/08/2017 22:21:58 03/08/20 17 03/08/2017 CMP, serum or plasm a globulin 3.3 gm/dL 1.0-4. 8 Not Available [address], [address], 03/08/2017 22:21:58 03/08/20 17 03/08/2017 CMP, serum or plasm a A/G ratio 1.2 gm/dL 1.0-4. 8 Not Available [address], [address], 03/08/2017 22:21:58 03/08/20 17 03/08/2017 CMP, serum or plasm a anion gap 15 mEq/L 10-20 Not Available [address], [address], 03/08/2017 22:21:58 03/08/20 17 03/08/2017 C react alfreda prote in, QN, serum or plasm a C-reactive protein 0.24 mg/dL 0.00-0 .50 Not Available [address], [address], 03/08/2017 22:21:58 03/08/20 17 03/08/2017 lipas e, serum or plasm a lipase 37 U/L 16-63 Not Available [address], [address], 03/08/2017 22:21:59 10/16/19 18 10/16/2017 urina lysis , refle x cultu re color Yellow yellow Not Available [facility] [address] [place] [address], [address], 10/16/2017 15:03:07 10/16/19 18 10/16/2017 urina lysis , refle x cultu re clarity Clear Not Available [facility]) [address] [place] [address], [address], 10/16/2017 15:03:07 10/16/19 18 10/16/2017 urina lysis , refle x cultu re glucose 3+ negati ve abnormal Not Available [facility] ([facility]) [address] [place] [address], [address], 10/16/2017 15:03:07 10/16/19 18 10/16/2017 urina lysis , refle x cultu re bili Negati ve negati ve Not Available [facility] (Out[facility]) [address] [place] [address], [address], 10/16/2017 15:03:07 10/16/19 18 10/16/2017 urina lysis , refle x cultu re ketones Negati ve negati ve Not Available [facility] (Out[facility]) [address] [place], [address], 10/16/2017 15:03:07 10/16/19 18 10/16/2017 urina lysis , refle x cultu re specific gravity 1.010 1.005- 1.030 Not Available [facility] (Outpatient) [address] [place], [id number], 10/16/2017 15:03:07 10/16/19 18 10/16/2017 urina lysis , refle x cultu re blood Negati ve negati ve Not Available [facility] (Outpatient) [address] [place], [id number], 10/16/2017 15:03:07 10/16/19 18 10/16/2017 urina lysis , refle x cultu re pH 5.5 5.0-8. 0 Not Available [facility] (Outpatient) [address] [place], [id number], 10/16/2017 15:03:07 10/16/19 18 10/16/2017 urina lysis , refle x cultu re protein Negati ve negati ve Not Available [facility] (Outpatient) [address] [place], [id number], 10/16/2017 15:03:07 10/16/19 18 10/16/2017 urina lysis , refle x cultu re nitrite Negati ve negati ve Not Available [facility] (Outpatient) [address] [place], [id number], 10/16/2017 15:03:07 10/16/19 18 10/16/2017 urina lysis , refle x cultu re leukocyte esterase, ur Negati ve negati ve Not Available [facility] (Outpatient) [address] [place], [id number], 10/16/2017 15:03:07 10/16/19 18 10/16/2017 CBC w/ auto diff WBC 5.58 K/uL 3.40-1 1.20 Not Available [facility] (Outpatient) [address] [place], [address], 10/16/2017 16:30:11 10/16/19 18 10/16/2017 CBC w/ auto diff RBC 4.75 M/uL 4.50-5 .50 Not Available [facility] (Outpatient) [address] [place], [address], 10/16/2017 16:30:11 10/16/19 18 10/16/2017 CBC w/ auto diff HGB 13.7 g/dL 13.0-1 7.0 Not Available [facility] (Outpatient) [address] [place], [address], 10/16/2017 16:30:11 10/16/19 18 10/16/2017 CBC w/ auto diff HCT 39.0 % 40.0-5 1.0 low Not Available [facility] (Outpatient) [address] [place], [address], 10/16/2017 16:30:11 10/16/19 18 10/16/2017 CBC w/ auto diff plt 218 K/uL 130-40 0 Not Available [facility] (Outpatient) [address] [place], [address], 10/16/2017 16:30:11 10/16/19 18 10/16/2017 CBC w/ auto diff MCV 82.1 fL 79.0-9 8.0 Not Available [facility] (Outpatient) [address] [place], [address], 10/16/2017 16:30:11 10/16/19 18 10/16/2017 CBC w/ auto diff MCH 28.8 pg 27.0-3 4.8 Not Available [facility] (Out[facility]) [address] [place], [address], 10/16/2017 16:30:11 10/16/19 18 10/16/2017 CBC w/ auto diff MCHC 35.1 g/dL 31.5-3 6.0 Not Available [facility] (Outpatient) [address] [place], [address], 10/16/2017 16:30:11 10/16/19 18 10/16/2017 CBC w/ auto diff RDW 12.8 % 10.8-1 4.6 Not Available [facility] ([facility]) [address] [place], [address], 10/16/2017 16:30:11 10/16/19 18 10/16/2017 CBC w/ auto diff MPV 10.9 fL 9.4-12 .4 Not Available [facility] (Outpatient) [address] [place], [address], 10/16/2017 16:30:11 10/16/19 18 10/16/2017 CBC w/ auto diff NRBC 0.00 /100_ WBCs Not Available [facility] ([facility]) [address] [place], [address], 10/16/2017 16:30:11 10/16/19 18 10/16/2017 CBC w/ auto diff absolute NRBC 0.00 K/uL Not Available [facility]) [address] [place], [address], 10/16/2017 16:30:11 10/16/19 18 10/16/2017 CBC w/ auto diff diff method Auto Not Available [facility] (Out[facility]) [address] [place], [address], 10/16/2017 16:30:11 10/16/19 18 10/16/2017 CBC w/ auto diff neuts 54.2 % 45.30- 77.70 Not Available [facility]Out[facility]) [address] [place], [address], 10/16/2017 16:30:11 10/16/19 18 10/16/2017 CBC w/ auto diff lymphs 32.1 % 12.30- 39.70 Not Available [facility] (Outpatient) [address] [place], [address], 10/16/2017 16:30:11 10/16/19 18 10/16/2017 CBC w/ auto diff monos 10.4 % 4.10-1 2.80 Not Available [facility] (Outpatient) [address] [place] [address], [address], 10/16/2017 16:30:11 10/16/19 18 10/16/2017 CBC w/ auto diff eos 2.7 % 0-7.2 Not Available [facility] (Outpatient) [address] [place] [address], [address], 10/16/2017 16:30:11 10/16/19 18 10/16/2017 CBC w/ auto diff basos 0.4 % 0-2.80 Not Available [facility] (Out[facility]) [address] [place], [address], 10/16/2017 16:30:11 10/16/19 18 10/16/2017 CBC w/ auto diff granulocytes , immature (%) 0.2 % 0.0-0. 9 Not Available [facility] (Outpatient) [address] [place] [address], [address], 10/16/2017 16:30:11 10/16/19 18 10/16/2017 CBC w/ auto diff absolute neuts 3.03 K/uL 1.40-7 .70 Not Available [facility] (Outpatient) [address] [place], [address], 10/16/2017 16:30:11 10/16/19 18 10/16/2017 CBC w/ auto diff absolute lymphs 1.79 K/uL 0.60-3 .20 Not Available [facility] (Outpatient) [address] [place] [address], [address], 10/16/2017 16:30:11 10/16/19 18 10/16/2017 CBC w/ auto diff absolute monos 0.58 K/uL 0.11-0 .59 Not Available [facility] (Outpatient) [address] [place], [address], 10/16/2017 16:30:11 10/16/19 18 10/16/2017 CBC w/ auto diff absolute eos 0.15 K/uL 0.01-0 .50 Not Available [facility] (Outpatient) [address] [place], [address], 10/16/2017 16:30:11 10/16/19 18 10/16/2017 CBC w/ auto diff absolute basos 0.02 K/uL 0.00-0 .08 Not Available [facility] (Outpatient) [address] [place], [address], 10/16/2017 16:30:11 10/16/19 18 10/16/2017 CBC w/ auto diff granulocytes , immature 0.01 K/uL 0.00-0 .05 Not Available [facility] (Outpatient) [address] [place], [address], 10/16/2017 16:30:11 10/16/19 18 10/16/2017 BMP, blood sodium 142 mmol/ L 133-14 6 Not Available [facility]Out[facility]) [address] [place], [address], 10/16/2017 16:53:22 10/16/19 18 10/16/2017 BMP, blood chloride 105 mmol/ L 96-108 Not Available [facility] (Out[facility]) [address] [place], [address], 10/16/2017 16:53:22 10/16/19 18 10/16/2017 BMP, blood potassium 4.7 mmol/ L 3.3-5. 1 Not Available [facility] (Outpatient) [address] [place], [address], 10/16/2017 16:53:22 10/16/19 18 10/16/2017 BMP, blood CO2 29 mmol/ L 21-35 Not Available [facility] (Out[facility]) [address] [place] [address], [address], 10/16/2017 16:53:22 10/16/19 18 10/16/2017 BMP, blood BUN 6 mg/dL 6-19 Not Available [facility] (Out[facility]) [address] [place] [address], [address], 10/16/2017 16:53:22 10/16/19 18 10/16/2017 BMP, blood creatinine 0.90 mg/dL 0.5-1. 5 Not Available [facility] ([facility]) [address] [place] [address], [address], 10/16/2017 16:53:22 10/16/19 18 10/16/2017 BMP, blood glucose 229 mg/dL 70-99 high Not Available [facility] (Outpatient) [address] [place] [address], [address], 10/16/2017 16:53:22 10/16/19 18 10/16/2017 BMP, blood calcium 9.6 mg/dL 8.4-10 .3 Not Available [facility] (Outpatient) [address] [place] [address], [address], 10/16/2017 16:53:22 10/16/19 18 10/16/2017 BMP, blood eGFR >60 mL/mi n/1.7 3m2 >60 Abnor mal if <60. If patie nt is Afric an-Am kwabena n, multi ply the resul t by 1.21. Not Available [facility] (Out[facility]) [address] [place] [address], [address], 10/16/2017 16:53:22 10/16/19 18 10/16/2017 BMP, blood anion gap 13 mmol/ L 10-20 Not Available [facility] (Out[facility]) [address] [place] [address], [address], 10/16/2017 16:53:22 10/16/19 18 10/16/2017 lipas e, serum or plasm a lipase 25 U/L 16-63 Not Available [facility] (Out[facility]) [address] [place], [address], 10/16/2017 16:53:24 10/16/19 18 10/16/2017 lfts (hepa tic panel ) alkaline phosphatase 98 U/L 39-117 Not Available [facility] (Out[facility]) [address] [place], [address], 10/16/2017 16:53:26 10/16/19 18 10/16/2017 lfts (hepa tic panel ) total bilirubin 0.5 mg/dL 0-1.2 Not Available [facility] (Out[facility]) [address] [place] [address], [address], 10/16/2017 16:53:26 10/16/19 18 10/16/2017 lfts (hepa tic panel ) direct bilirubin <0.2 mg/dL 0-0.3 Not Available [facility] (Outpatient) [address] [place], [address], 10/16/2017 16:53:26 10/16/19 18 10/16/2017 lfts (hepa tic panel ) bilirubin (indirect) NOT CALCUL ATED mg/dL 0-1.5 Not Available [facility] (Outpatient) [address] [place] [address], [address], 10/16/2017 16:53:26 10/16/19 18 10/16/2017 lfts (hepa tic panel ) AST 14 U/L 0-37 Not Available [facility] (Outpatient) [address] [place] [address], [address], 10/16/2017 16:53:26 10/16/19 18 10/16/2017 lfts (hepa tic panel ) ALT 16 U/L 0-40 Not Available [facility] (Outpatient) [address] [place], [address], 10/16/2017 16:53:26 10/16/19 18 10/16/2017 lfts (hepa tic panel ) total protein 7.4 g/dL 6.5-8. 0 Not Available [facility] (Outpatient) [address] [place], [address], 10/16/2017 16:53:26 10/16/19 18 10/16/2017 lfts (hepa tic panel ) albumin 4.3 g/dL 3.9-4. 8 Not Available [facility] (Outpatient) [address] [place], [address], 10/16/2017 16:53:26 10/16/19 18 10/16/2017 lfts (hepa tic panel ) globulin 3.1 g/dL 1-4.8 Not Available [facility] (Outpatient) [address] [place], [address], 10/16/2017 16:53:26 10/16/19 18 10/16/2017 lfts (hepa tic panel ) A/G ratio 1.39 ratio 1.00-4 .80 Not Available [facility] (Outpatient) [address] [place], [address], 10/16/2017 16:53:26 04/12/20 16 04/12/2016 XR, chest , 2 view No observ ation record ed. sbrulotte [facility] [address] [place], [address], 04/18/2016 07:51:26 06/16/20 16 04/12/2016 chest 2 V HISTOR Y: As above. COMPAR MARYCARMEN: None. CHEST RADIOG RAPH FINDIN GS: 2 views obtain ed. Heart and medias tinum are normal . Low lung volume s. Bibasi lar scarri ng versus atelec tasis. Mild thorac ic spondy losis and scolio sis. No acute soft tissue findin gs. IMPRES HERB: No acute chest diseas e. POS - CDHRAD BOARDW S7 Electr onical ly Signed by: DORIAN LOERA MD on 04/12/20 16 6:35 AM Techno logist : JOHN PEACE, ANGELA Transc ribed by: Yuli allen, PS360 Result s 2015 06:33 AM Electr onical ly Signed By: DORIAN MON MD 2015 06:35 AM mmastroberti [facility] [address] [facility], [place], [address], 06/17/2016 10:45:13 03/09/20 17 03/09/2017 CT, abdom en + pelvi s, w/o contr ast HISTOR Y: Worsen ing left flank pain, dysuri a. COMPAR MARYCARMEN: None. TECHNI QUE: Study perfor med accord ing to urinar y tract calcul i protoc ol. Unenha nced CT obtain ed from above the kidney s throug h the inferi or pubic rami. Sagitt al and liu l reform ats genera tanya. Automa tanya exposu re contro l utiliz ed. FINDIN GS: Lower hemith oraces : No signif icant findin gs of concer n. : No perine phric collec tions. No signif icant perine phric fat strand ing. Kidney s appear normal . No eviden ce of urinar y tract calcul i. Ureter s normal in calibe r. The urinar y bladde r is quite disten ded. Mild prosta tomega ly. GI: No marked bowel disten tion or eviden ce of bowel wall thicke lydia. No free air. Liver/ spleen : No eviden ce of signif icant abnorm alitie s of the liver or spleen . Pancre as/lisa iary: Pancre as appear s normal . No eviden ce of biliar y ductal dilata tion. Clips in gallbl adder fossa from previo us cholec ystect erin. Adrena ls: Adrena ls appear normal . Lymph node/l ymphat ics: No eviden ce of measur able retrop eriton eal lympha denopa thy. Cardio vascul ar: Abdomi nal aorta normal in calibe r. Mild vascul ar calcif icatio ns. Muscul oskele mik: No suspic ious lytic or blasti c lesion s within the bones. IMPRES HERB: No eviden ce of urinar y tract calcul i or obstru ctive uropat hy. No other eviden ce of acute pathol ogy in the abdome n or pelvis . Initia l report render ed by [facility]. POS - CDHRAD BOARDW S7 Electr onical ly Signed by: MO CERON on 017 10:12 AM Techno logist : NINI MONICA, KEVIN Transc ribed by: Yuli allen, PS360 Result s 2016 10:04 AM Electr onical ly Signed By: MO CERON MD 2016 10:12 AM [facility] [address] [place] [address], [address], 03/13/2017 13:11:35 10/17/19 18 10/16/2017 xr abdom en serie s supin e with decub itis/ erect and singl e view chest HISTOR Y: As above. COMPAR MARYCARMEN: Chest x-ray [address] abdome n pelvis 2016. ABDOME N SERIES RADIOG RAPH FINDIN GS: 4 views obtain ed. CHEST: Heart and medias tinum are normal . Lungs are clear. No acute soft tissue or bony findin gs. ABDOME N: No free air, air-fl uid levels or bowel disten tion. Bones and soft tissue s are stable . Decrea se in bladde r disten tion. No acute findin gs. IMPRES HERB: No acute findin gs. POS - CDHRAD BOARDW S11 Electr onical ly Signed by: DORIAN LOERA MD on 10/17/19 18 6:38 AM Interp reted by: Dorian loera MD Signed by: Dorian loera MD 10/17/17 Final result P.S. LQP X 7 MONTHS ROBLES ISAAC [facility] [address] [place], [address], 10/17/2017 08:11:32 Result Notes None recorded. Problems Name Problem SNOMED Code Status Onset Date Resolution Date Notes Provider Name and Address Organization Details Recorded Time Essential hypertensio n 34391697 Completed 01/20/2016 Robles Isaac MD [address] [place], [place] [address], [address] [facility] [place]:10:[place] Diabetes mellitus 68454621 Completed 01/20/2016 Robles Isaac MD [address] [place], [place] [address], [address], [facility] [place] [facility] 23:10:50 Skin lesion 77441029 Completed 01/20/2016 Robles hendrickson MD [address] [place], [place] [address], [address], [facility] [place] [facility] 23:10:54 Benign essential hypertensio n 6030403 Active Robles Isaac MD [address] [place], [place] [address], [address], [facility] [place] [facility] 08:53:56 Mixed hyperlipide muna 520162732 Active Robles Isaac MD [address] [place], [place] [address], [address], [facility] [place] [facility] 08:53:56 Uncontrolle d type 2 diabetes mellitus 409607853 Active Robles Isaac MD [address] [place], [place] [address], [address], [facility] [place] 08:53:56 Problem Notes None recorded. Procedures Surgical History Date Name Laterality Status Provider Name and Address Organization Details Recorded Time 6 POC Urinalysis Testing completed Yocasta [facility] 05/31/2016 16:24:56 4 Excision completed Robles Isaac MD [address] [place], [place] [address], [address], [facility] [place]/15/2013 11:15:56 Imaging Results Imaging Date Name Status LastModified by Organiz ation Details LastModified Time 04/12/2016 XR, chest, 2 view completed [facility] [address] , [place], [address], 04/18/2016 07:51:26 04/12/2016 chest 2 V completed mmastroberti [facility] [address] [place], [address], 06/17/2016 10:45:13 03/09/2017 CT, abdomen + pelvis, w/o contrast completed [facility] [address] [place], [address], 03/13/2017 13:11:35 10/16/2017 xr abdomen series supine with decubitis/ere ct and single view chest completed [facility] [address] [place], [address], 10/17/2017 08:11:32 Procedure Notes None recorded. Medical Equipment None Reported. Allergies No known drug allergies Medications Name Sig Start Date Stop Date Status Note LastModified by Organization Details LastModified Time metformin 500 mg tablet TK 1 T PO BID active Not Available Not Available No t Available FreeStyle Lancets 28 gauge USE TO TEST BLOOD SUGARS 1 TO 2 TIMES DAILY active Not Available Not Available No t Available glipizide 10 mg tablet Take 1 tablet twice a day by oral route. 2015 active Not Available Not Available Not Avai lable chlorthalid one 25 mg tablet TK 1 T PO QD active Not Available Not Available No t Available prochlorper azine maleate 10 mg tablet active Not Available Not Available No t Available oxycodone-a cetaminophe n 5 mg-325 mg tablet 05/03 completed Not Available Not Available Not Available metformin 1,000 mg tablet Take 1 tab po bid 06/22 completed Not Available Not Available Not Available gabapentin 300 mg capsule TK 1 C PO QD HS active Not Available Not Available No t Available magnesium citrate oral solution active Not Available Not Available Not Available bisacodyl 5 mg tablet,patrick yed release active Not Available Not Available Not Available alcohol swabs USE DIRECTED WHEN TESTING 2 TO 3 TIMES A DAY active Not Available Not Available No t Available lisinopril 2.5 mg tablet Take 1 tab po daily 2015 active Not Available Not Available Not Avai lable glipizide 5 mg tablet TK 1 T PO BID active Not Available Not Available No t Available metformin ER 1,000 mg tablet,exte nded release 24hr (osmotic) TK 1 T PO BID active Not Available Not Available No t Available FreeStyle Lite Strips USE TO TEST BLOOD SUGARS 2 TIMES DAILY PRN active Not Available Not Available No t Available FreeStyle [place] Lite kit active Not Available Not Available Not Available Vitals Date Recorded Body height Provider Name an d Address Organization Details Last Updated DateTime 05/03/2016 158.115 cm Alessandra Orellana MA [facility] 05/03/2016 08:27:35 Date Recorded Body weight Body mass index (BMI) Provider Name and Address Organization Details Last Updated DateTime 05/03/2016 92295.45 g 27.4 kg/m2 Alessandra Orellana MA [facility] 05/03/2016 08:27:53 Date Recorded Body height Provider Name an d Address Organization Details Last Updated DateTime 05/31/2016 158.115 cm [facility] 05/31/2016 16:02:13 Date Recorded Heart rate Provider Name an d Address Organization Details Last Updated DateTime 05/31/2016 85 /min [facility] 05/31/2016 16:03:03 Date Recorded Oxygen saturation Oxygen saturation in Arterial blood by Pulse oximetry Provider Name and Address Organization Details Last Updated DateTime 05/31/2016 98 % 98 % [facility] 05/31/2016 16:03:13 Date Recorded Body height Provider Name an d Address Organization Details Last Updated DateTime 06/06/2016 158.115 cm [facility] 06/06/2016 09:57:28 Date Recorded Body height Provider Name an d Address Organization Details Last Updated DateTime 06/22/2016 158.115 cm [facility] 06/22/2016 11:19:09 Date Recorded Body weight Body mass index (BMI) Provider Name and Address Organization Details Last Updated DateTime 06/22/2016 84233.26 g 27.3 kg/m2 [facility] 06/22/2016 11:19:33 Date Recorded Systolic blood pressure Diastolic blood pressure Provider Name and Address Organization Details Last Updated DateTime 05/03/2016 144 mm[Hg] 74 mm[Hg] Alessandra Orellana MA [facility] 05/03/2016 08:30:54 Date Recorded Systolic blood pressure Diastolic blood pressure Provider Name and Address Organization Details Last Updated DateTime 05/31/2016 142 mm[Hg] 88 mm[Hg] [facility] 16:06:44 Date Recorded Systolic blood pressure Diastolic blood pressure Provider Name and Address Organization Details Last Updated DateTime 06/06/2016 142 mm[Hg] 72 mm[Hg] [facility]2016 09:58:35 Date Recorded Systolic blood pressure Diastolic blood pressure Provider Name and Address Organization Details Last Updated DateTime 06/22/2016 150 mm[Hg] 80 mm[Hg] Yocasta [facility] 06/22/2016 11:20:12 Social History Question Answer Notes LastModified by Organizat ion Details LastModified Time Tobacco Smoking Status Never Smoker Alessandra Orellana MA [facility] 10/02/2013 10:35:52 What Is Your Level Of Alcohol Consumption? None Information not available 10/02/2013 Are You Blind Or Do You Have Difficulty Seeing? Yes Information not available 10/02/2013 What Is Your Level Of Caffeine Consumption? Moderate Information not available 10/02/2013 Are You Deaf Or Do You Have Serious Difficulty Hearing? Yes Information not available 10/02/2013 What Type Of Diet Are You Following? REGULAR Information not available 10/02/2013 What Is Your Occupation? Works At [employer] fk Information not available 10/02/2013 How Many Days In The Past Year Have You Had A Heavy Drinking Consumption (4+ Female, 5+ Male)? 0 Information not available 11/25/2015 Are There Any Guns Present In Your Home? No Information not available 10/02/2013 Live Alone Or With Others? With Others Information not available 10/02/2013 Does The Patient Have Difficulty Speaking Setswana? Yes Information not available 10/02/2013 Patient Has Health Care Proxy Signed And In Chart No [email or web address] Information not available 10/30/2013 DM Disease Process Post-needs Review Information not available 07/04/2016 Nutrition Post-needs Review Information not available 07/04/2016 Physical Activity Post-needs Review Information not available 07/04/2016 Medications Post-needs Review Information not available 07/04/2016 Monitoring Post-shows Competency Information not available 07/04/2016 Acute Complications Post-needs Review Information not available 07/04/2016 Chronic Complications Post-needs Review Information not available 07/04/2016 Coping Post-needs Review Information not available 07/04/2016 Behavior Change Post-needs Review Information not available 07/04/2016 DSME Plan Goal Monitoring: Monitor Blood Sugar 1x/day, Alternate The Time Of Day, Either Fasting Or 2 Hours After A Large Meal. Information not available 07/04/2016 DSME Plan Goal Success Initiated Information not available 07/04/2016 DSME Plan Goal Evaluation: 07/04/2016 Information not available 07/04/2016 DSME Plan Initiated: 07/04/2016 DSME Dates Seen: 07/04/16, Information not available 07/04/2016 DSME Plan Status In Progress - Information not available 07/04/2016 Marital Status Info rmation not available 10/02/2013 How Many Children Do You Have? 5 Information not available 10/02/2013 Seat Belts Used Routinely Yes Information not available 10/02/2013 Smoke Alarm In Home Yes Information not available 10/02/2013 How Much Tobacco Do You Smoke? No Information not available 12/14/2015 General Stress Level Medium Information not available 10/02/2013 How Many Years Have You Smoked Tobacco? 0 Information not available 12/14/2015 Sex: Unknown Functional Status Question Answer Note LastModified by Organization D etails LastModified Time Do you have difficulty walking or climbing stairs? No Information not available 10/02/2013 Do you have difficulty doing errands alone? No Information not available 10/02/2013 Do you have difficulty dressing or bathing? No Information not available 10/02/2013 Mental Status Question Answer Note LastModified by Organizat ion Details LastModified Time Do you have difficulty concentrating, remembering or making decisions? Yes Information n ot available 10/02/2013 Family History Relationship Description Onset Age of this Age Resolved Age Notes LastModified by Organization Details LastModified Time Mother Myocardial infarction [email or web address] Not available 10/02 10:59:36 Mother Diabetes mellitus [email or web address] Not available 2013 10:59:36 Father Myocardial infarction fkim Not available 10/02 10:59:36 Father Diabetes mellitus fkim Not available 2013 10:59:36 Father Cerebrovascu lar accident fkim Not available 10:59:36 Notes:No FHx of [place] Medical History No medical history recorded. Immunizations Vaccine Type Date Status Note Provider Nam e and Address Organization Details Recorded Time Tdap 4 completed Not Available [facility] 09/28/2019 02:16:08 Influenza, split virus, quadrivalent, PF 4 completed Not Available [facility] 09/28/2019 02:18:56 pneumococcal polysaccharide PPV23 4 completed Not Available [facility] 09/28/2019 02:14:36 Influenza, split virus, trivalent, PF 4 completed Not Available [facility] 09/28/2019 02:19:21 Influenza, split virus, quadrivalent, PF 6 completed Not Available [facility] 09/28/2019 02:33:00 Past Encounters Encounter ID Performer Location Encounter Start Date Encounter Closed Date Diagnosis/Indication Diagnosis SNOMED-CT Code Diagnosis ICD10 Code Diagnosis Note [id number] [facility], [address] [place] [address] 10/02/2013 10:13:34 10/02/2013 11:26:17 Essential hypertension 84881778 Elevated BP. Previously not engaged in care. Low salt diet recommende d. Start Chlorthali done. Will add SHUN-I once renal function establishe d. Follow up in 1 week. Advised to get fasting labwork tomorrow. Diabetes mellitus 33954242 Patient with new-onset diabetes. Symptoms of polydipsia and polyuria. Previously measured to have BS >400 at home. BS elevated today. No ketonuria. Diabetic supplies prescribed . Start Glipizide 5mg po daily. Will add Metformin once renal function establishe d. Advised on ADA diet and ample oral hydration. Advised to get his fasting labwork done TOMÁS. Follow up in 1 week. Screening for malignant neoplasm of colon [id number] Skin lesion [id number] Inv olving the left posterior upper arm. Likely epidermoid cyst. Schedule for an excision. No clinical evidence of cellulitis or acute abscess. Influenza vaccine needed [id number] Administra tion of diphtheria, pertussis, and tetanus vaccine [id number] Alessandra Orellana MA , [facility], [address] [place] [address] 10/09/2013 09:59:46 10/09/2013 13:05:30 Essential hypertension [id number] Previously not engaged in care. Tolerating Chlorthali done. BP improved. Low salt diet recommende d. Will add Lisinopril 2.5mg po daily. Repeat BMP at his next visit. Diabetes mellitus [id number] Patient with new-onset diabetes. Symptoms of polydipsia and polyuria. Elevated BS. No AG or ketonuria previously . GFR 61. Diabetic supplies prescribed . Checking BS bid. ADA diet discussed. Advised to continue Glipizide 5mg po daily. Will add Metformin 500mg po daily. Potential adverse effects discussed. Ample oral hydration discussed. Also with slightly elevated MA/Cr ratio. Will start SHUN-I. Follow up in 1 week. [id number] TINO Mendoza, [facility], [address] [place] [address] 10/15/2013 10:06:38 10/15/2013 13:08:04 Diabetes mellitus [id number] Patient with new-onset diabetes. Symptoms of polydipsia and polyuria. Still with elevated BS, only mildly improved. No AG or ketonuria previously . GFR 61. Diabetic supplies prescribed . Checking BS bid. ADA diet discussed. Advised to continue Glipizide 5mg po daily. Tolerating Metformin (started last week). Advised to increase Metformin to 500mg po bid. Potential adverse effects discussed. Ample oral hydration discussed. Also with slightly elevated MA/Cr ratio. SHUN-I started last week as well. Follow up in 1 week. Epidermoid cyst of skin [id number] Non-infect ed, left upper arm cyst removed due to persistent pain. The cyst was excised using a sterile technique after preparing the area with betadine x3, then anesthesia with Lidocaine 1% with Epinephrin e (~3mL). The incision was approximat ed using 4-0 Monofilame nt sutures (3). Patient tolerated the procedure well without complicati ons. No biopsy sent. Detailed wound care discussed Advised to contact the clinic with increased pain, bleeding, drainage or fever/chil ls. Follow up in 1 week for wound check and suture removal. [id number] Robles Isaac MD , [facility], [address] [place] [address] 10/23/2013 14:35:31 10/23/2013 15:12:07 Chest pain [id number] His symptoms of left-sided chest pain and dizziness improved 2-3 minutes after being in supine position. No LOC or MS change. Also given 324mg of ASA and 2L O2. BP and HR markedly improved. EKG unremarkab le. Denies CP/APONTE/DZ at the time of departure. No associated diaphoresi s or N/V. Likely vasovagal response. Advised to contact the clinic if recurrence of symptoms. Indication s for UC/ER use discussed. Skin lesion [id number] Inv olving the left posterior upper arm. Sutures removed. Hypertroph ic scar and contact dermatitis noted. Purulent discharge expressed with suture removal. Wound care discussed. Gauze applied. Follow up early next week for a follow up. Consider General Surgery referral if not healed completely . [id number] Alessandra Orellana MA , [facility], [address] [place] [address] 10/30/2013 08:21:52 10/30/2013 08:54:16 Essential hypertension [id number] Previously was not engaged in care. Tolerating Chlorthali done and Lisinopril . BP markedly improved. Low salt diet recommende d. Check BMP at his next visit. Diabetes mellitus [id number] Patient with new-onset diabetes. Symptoms of polydipsia and polyuria markedly improved. Still with elevated BS. No AG or ketonuria previously . GFR 61. Diabetic supplies prescribed . Checking BS bid. ADA diet discussed. Will further increase Glipizide to 5mg po bid. Tolerating Metformin 500mg po bid. Potential adverse effects of these medication s discussed. Ample oral hydration discussed. Also with slightly elevated MA/Cr ratio. SHUN-I started previously . Skin lesion [id number] Inv olving the left posterior upper arm. Sutures removed last week. Hypertroph ic scar and contact dermatitis noted at the time. Now healing well. No fluctuance . Consider General Surgery referral if not healed completely . Chest pain [id number] His symptoms of left-sided chest , SOB and dizziness improved 2-3 minutes after being in supine position. This episode occured last week. Did not have any recurrent symptoms. No LOC or MS change. EKG was unremarkab le. Denies CP/APONTE/DZ currently. No associated diaphoresi s or N/V. Likely vasovagal response. Advised to contact the clinic if recurrence of symptoms. Indication s for UC/ER use discussed. [id number] TINO Stanley, [facility], [address] [place] [address] 11/27/2013 09:03:19 11/27/2013 09:47:48 Diabetes mellitus [id number] Patient with recent diagnosis of diabetes. Symptoms of polydipsia and polyuria markedly improved. Still with elevated FBS 177-312, but these values have improved as well. No AG or ketonuria previously . GFR 61. Diabetic supplies prescribed . Checking BS bid. ADA diet discussed. Will further increase Metformin to 1000mg po bid. Tolerating Glipizide to 5mg po bid. Potential adverse effects of these medication s discussed. Ample oral hydration discussed. Also with slightly elevated MA/Cr ratio. SHUN-I started. Essential hypertension [id number] Previously was not engaged in care. Tolerating Chlorthali done. Erroneousl y stopped Lisinopril . Will resume. No intoleranc e issues. BP markedly improved. Low salt diet recommende d. Epidermoid cyst of skin [id number] Non-infect ed, left upper arm cyst removed at his previous visit due to persistent pain. Patient with residual scarring. No current evidence of infection. [id number] Xi BORRERO, [facility], [address] [place] [address] 02/19/2014 11:04:44 02/19/2014 12:04:40 Adult health examination [id number] See Risk Assessment and Lifestyle Change Counseling section above. Tdap vaccine UTD. PNA vaccine administer ed today. Home/vehic le/sexual safety reviewed. Not sexually active. Colonoscop y scheduled 03/2014. Counseling [id number] Benign ess ential hypertension [id number] Previously was not engaged in care. Tolerating Chlorthali done and Lisinopril . BP markedly improved. Low salt diet recommende d. Mixed hyperlipidemia 039770073 Fair FLP with LDL 92. Would like better control given his underlying diabetes, but also struggles with polypharma cy. Low fat/choles terol diet and exercise recommende d. Diarrhea [id number] Patien t with chronic diarrhea intermitte ntly. Recently evaluated by Dr. Basilio (GI). Scheduled to have a colonoscop y in 03/2014. Recent IgA mildly positive (other celiac markers negative). No BRBPR/boris na. No abdominal pain. Uncontroll ed type 2 diabetes mellitus [id number] States home BS 140-200. Improved Hgb A1c (from 11.8 in 09/2013 to 9.0 in 02/2014), but still not at target. Overall improvemen t. Denies polyuria, polydipsia or polyphagia . MA/Cr ratio is normal. Optometry referral for retinopath y screening. No elevated AG or ketonuria previously . Diabetic supplies prescribed . Checking BS bid. ADA diet discussed. Will further increase Glipizide to 10mg po bid. Continue Metformin at 1000mg po bid. Re-evaluat ion in 1 month. Advised to contact the clinic with hypo- or hyperglyce rajesh episodes. Potential adverse effects of these medication s discussed. Ample oral hydration discussed. Administra tion of pneumococcal vaccine [id number] Robles Isaac MD , [facility], [address] [place] [address] 04/09/2014 07:59:46 04/09/2014 08:49:22 Uncontrolled type 2 diabetes mellitus [id number] States home BS 120-150. Overall improved Hgb A1c (from 11.8 in 09/2013 to 9.0 in 02/2014), but still not at target. Medication adjusted since his last Hgb A1c. Repeat in 05/2014. Denies polyuria, polydipsia or polyphagia . MA/Cr ratio is normal. Optometry referral for retinopath y screening. No elevated AG or ketonuria previously . Diabetic supplies prescribed . Checking BS bid. ADA diet discussed. Will Continue Glipizide to 10mg po bid and Metformin at 1000mg po bid. Advised to contact the clinic with hypo- or hyperglyce rajesh episodes. Potential adverse effects of these medication s discussed. Ample oral hydration discussed. Essential hypertension [id number] Previously was not engaged in care. Tolerating Chlorthali done. Erroneousl y stopped Lisinopril . Will resume. No intoleranc e issues. BP markedly improved. Will titrate up Lisinopril as needed. Low salt diet recommende smiley. [id number] [facility], [address] [place] [address] 07/07/2014 07:47:01 07/07/2014 08:23:26 Mixed hyperlipidemia [id number] Patient with LDL of 150 (06/2014). However, his 10-year risk of FL is 7%. New AHA/ACC guideline discussed. Advised on low fat/choles terol diet and exercise. Influenza vaccine needed [id number] 106 Uncontroll ed type 2 diabetes mellitus 102136584 States home BS 100-160. Overall improved Hgb A1c (from 11.8 in 09/2013 to 9.0 in 02/2014 to 7.4 in 06/2014), but still not at target. Medication adjusted since his last Hgb A1c. Repeat in 6 months. Denies polyuria, polydipsia or polyphagia . MA/Cr ratio is normal. Undergone Optometry exam (no DR). No elevated AG or ketonuria previously . Diabetic supplies prescribed . Checking BS bid. ADA diet discussed. Will Continue Glipizide to 10mg po bid and Metformin at 1000mg po bid. Advised to contact the clinic with hypo- or hyperglyce rajesh episodes. Potential adverse effects of these medication s discussed. Ample oral hydration discussed. Essential hypertension 44864411 Previously was not engaged in care. Tolerating Chlorthali done and Lisinopril . No intoleranc e issues. BP markedly improved. Low salt diet recommende d. [id number] Robles Isaac MD , [facility], [address] [place] [address] 11/25/2015 08:22:18 11/25/2015 09:20:28 Benign essential hypertension 2176811 I10 Blood pressure elevated. Lost insurance in 2013. Has been off his medication s. No CP/SOB/CUEVAS . Recommende d to continue to work on diet, exercise, and lowering salt intake. Will resume Lisinopril (but will hold off on Chlorthali done). Check BMP. Mixed hyperlipidemia [id number] 145509 E78.2 Patient with previous LDL of 150 (06/2014). However, his 10-year risk of FL is 7%. New AHA/ACC guideline discussed. Advised on low fat/choles terol diet and exercise. Uncontroll ed type 2 diabetes mellitus 192609597 E11.65 Out of care for over 1 year (due to lack of insurance) . Not checking BS now. Previously had improvemen t of Hgb A1c while on medication s (from 11.8 in 09/2013 to 9.0 in 02/2014 to 7.4 in 06/2014). Now with polyuria, polydipsia or polyphagia . MA/Cr ratio is normal previously . Undergone Optometry exam 2 years ago (was told no DR). No elevated AG or ketonuria previously . Diabetic supplies prescribed . ADA diet discussed. Will resume Glipizide and Metformin at lower doses. Will check Hgb A1c and BMP. Advised to contact the clinic with hypo- or hyperglyce rajesh episodes. Potential adverse effects of these medication s discussed. Ample oral hydration discussed. Unexplaine d weight loss 032926140 R63.4 Patient with 15 lbs weight loss since his last visit. Denies bleeding. Out of medication for over 1 year. Will continue to monitor. [id number] Robles Isaac MD , [facility], [address] [place] [address] 12/14/2015 10:17:02 12/15/2015 08:21:49 Benign essential hypertension 9534463 I10 Blood pressure improved. Lost insurance in 2013. Was off his medication s. No CP/SOB/CUEVAS . Recommende d to continue to work on diet, exercise, and lowering salt intake. Recently started Lisinopril (but will hold off on Chlorthali done). Mixed hyperlipidemia 267 585229 E78.2 Patient with previous LDL of 150 (06/2014). However, his 10-year risk of FL is 7%. New AHA/ACC guideline discussed. Advised on low fat/choles terol diet and exercise. Uncontroll ed type 2 diabetes mellitus 681439873 E11.65 Out of care for over 1 year (due to lack of insurance) . Marked improvemen t in his home BS. Now at 130-250 (previousl y in the 300-400 range). Previously had improvemen t of Hgb A1c while on medication s (from 11.8 in 09/2013 to 9.0 in 02/2014 to 7.4 in 06/2014). MA/Cr ratio is normal previously . Previous Optometry exam 2 years ago (was told no DR). No elevated AG or ketonuria previously . Diabetic supplies prescribed . ADA diet discussed. Resumed Glipizide and Metformin at lower doses. Will titrate up Metformin to 1000mg po bid. Advised to contact the clinic with hypo- or hyperglyce rajesh episodes. Potential adverse effects of these medication s discussed. Ample oral hydration discussed. [id number] Robles Isaac MD , [facility], [address] [place] [address] 01/11/2016 08:21:26 01/11/2016 08:52:49 Benign essential hypertension 1629605 I10 Blood pressure elevated, but previously well controlled . Lost insurance in 2013. Was off his medication s. No CP/SOB/CUEVAS . Recommende d to continue to work on diet, exercise, and lowering salt intake. Recently started Lisinopril (but will hold off on Chlorthali done). Elevated BP may be due to his current pain. Will consider restarting Chlorthali done vs. titrating up Lisinopril if persistent ly elevated. Mixed hyperlipidemia 267 552093 E78.2 Patient with previous LDL of 150 (06/2014). However, his 10-year risk of FL is 7%. New AHA/ACC guideline discussed. Advised on low fat/choles terol diet and exercise. Uncontroll ed type 2 diabetes mellitus 446306865 E11.65 Out of care for over 1 year (due to lack of insurance) . Marked improvemen t in his home BS, but still elevated. Will further increase the Glipizide dose. Previously had improvemen t of Hgb A1c while on medication s (from 11.8 in 09/2013 to 9.0 in 02/2014 to 7.4 in 06/2014). MA/Cr ratio is normal. Previous Optometry exam 2 years ago (was told no DR). No elevated AG or ketonuria previously . Diabetic supplies prescribed . ADA diet discussed. Continue Metformin to 1000mg po bid. Advised to contact the clinic with hypo- or hyperglyce rajesh episodes. Potential adverse effects of these medication s discussed. Ample oral hydration discussed. Right uppe r quadrant pain 156594786 R10.11 Patient with 1-week duration of RUQ abdominal pain. No clinical evidence of acute abdomen. Will check US to further evaluate. Advised to avoid high fat diet. Indication s for UC/ER use reviewed. [id number] MD GISSELL Huizar, [facility], [address] [place] [address] 01/20/2016 08:45:30 01/20/2016 09:28:43 Cholelithiasis without obstruction [id number] K80.20 Patient with 1-week duration of RUQ abdominal pain. No clinical evidence of acute abdomen. Abdominal US revealed gallstones . Will refer to General Surgery for further evaluation . Advised to avoid high fat diet. Indication s for UC/ER use reviewed. Benign ess ential hypertension 6516360 I10 Blood pressure improved overall. Lost insurance in 2013. Was off his medication s. No CP/SOB/CUEVAS . Recommende d to continue to work on diet, exercise, and lowering salt intake. Recently started Lisinopril (but will hold off on Chlorthali done). Mixed hyperlipidemia 267 000129 E78.2 Patient with previous LDL of 150 (06/2014). However, his calculated 10-year risk of FL is 7%. New AHA/ACC guideline discussed. Advised on low fat/choles terol diet and exercise. Uncontroll ed type 2 diabetes mellitus 961253749 E11.65 Out of care for over 1 year (due to lack of insurance) . Marked improvemen t in his home BS, but still elevated. Recently increased the Glipizide dose. Previously had improvemen t of Hgb A1c while on medication s (from 11.8 in 09/2013 to 9.0 in 02/2014 to 7.4 in 06/2014). MA/Cr ratio is normal. Previous Optometry exam 2 years ago (was told no DR). No elevated AG or ketonuria previously . Diabetic supplies prescribed . ADA diet discussed. Continue Metformin to 1000mg po bid. Advised to contact the clinic with hypo- or hyperglyce rajesh episodes. Potential adverse effects of these medication s discussed. Ample oral hydration discussed. [id number] MD GISSELL Huizar, [facility], [address] [place] [address] 05/03/2016 08:21:49 05/03/2016 08:48:10 Neuropathy [id number] G62.9 Patient reports bilateral inner thigh numbness and tingling. No weakness. No urine incontinen ce symptoms. Trial of Gabapentin discussed. Uncontroll ed type 2 diabetes mellitus 361232765 E11.65 Recently increased the Glipizide dose. Previously had improvemen t of Hgb A1c while on medication s (from 11.8 in 09/2013 to 9.0 in 02/2014 to 7.4 in 06/2014). MA/Cr ratio is normal. ADA diet discussed. Continue Metformin to 1000mg po bid and Glipizide 10mg po bid. Advised to contact the clinic with hypo- or hyperglyce rajesh episodes. Potential adverse effects of these medication s discussed. Ample oral hydration discussed. Benign ess ential hypertension 4996995 I10 Blood pressure improved overall. Lost insurance in 2013. Was off his medication s. No CP/SOB/CUEVAS . Recommende d to continue to work on diet, exercise, and lowering salt intake. Recently started Lisinopril (but will hold off on Chlorthali done). [id number] Kyra Mauro, [facility], [address] [place] [address] 05/31/2016 15:55:20 05/31/2016 16:50:42 Active or passive immunization [id number] Z23 Diarrhea 30948289 R19.7 possibly secondary to surgery, poor historian, symptoms worsening in last 2 weeks. labs as ordered below. advised follow up within 4-7 days. Dysuria 31749773 R30.0 UA labs consistent with poorly controlled DM. culture pending. follow up with PCP, if symptoms worsen be seen. Uncontroll ed type 2 diabetes mellitus 685773525 E11.65 reviewed importance of blood sugar control. pt to follow up with pcp. [id number] [facility], [address] [place] [address] 06/06/2016 09:54:11 06/06/2016 10:24:25 Diarrhea 53187450 R19.7 possible s/e of metformin, change ir to ER, follow up in 2 weeks. Uncontroll ed type 2 diabetes mellitus 773682700 E11.65 possible metformin contributi ng to diarrhea, change to ER. monitor diarrhea, follow up in 2 weeks for disease management re diarrhea and blood sugar. Shoulder pain 40541950 M 25.512 subscapula r pain consistent with muscle strain. continue with supportive measures. [id number] Kyra Mauro, [employer] , [facility], [address] [place] [address] 06/22/2016 11:10:57 06/24/2016 09:39:47 Shoulder joint pain 059912612 M25.519 right sub scapular muscle spasm, pt notes weakness in right shoulder suggestive of rotator cuff involvemen t, but no focal weakness on exam , muscle tension noted. refer for PT, apply heat, follow up for failure to resolve. Diabetes mellitus 007588 09 E11.9 fasting sugar elevated, referral to DNE consider victoza or insulin. [id number] Julieta Barrett RN, BSN, [facility] , [facility] [address] [place] [address] 07/04/2016 07:51:58 07/08/2016 09:50:09 Uncontrolled type 2 diabetes mellitus 721296921 E11.65 Met with Greg today for Type 2 diabetes, kindly referred by Kyra Mauro, STEPHANIE. Greg is accompanie d by his daughter, who helps to translate for him. He is [place] speaking. His daughter reports she lives with her father and tries to remind him often when he needs to take his medication and test his blood sugar. He admits he forgets this frequently . We reviewed his blood sugar control and most recently his A1C was 7.7% in May, however, his meter download does not reflect the same management . He has tested his blood sugar 4x in the last month. His monthly average is 256 mg/dl. He admits that his A1C is lower when he is taking his medication regularly. Reviewed his diet and he appears to be drinking soda, and eating a whole bag of marshGourmantlo ws at night, therefore, we discussed the benefits of cutting these two food items from his diet and how it will make a large impact on his overall control. He agrees to cut back on his intake of both items. He is currently taking Glipizide 10 mg, 1 tab in the AM and Metformin ER 1,000 mg QD. He had increased symptoms of diarrhea and his dose of Metformin was decreased. We discussed the next option for treatment and he has a misconcept ion that insulin causes because he has several family members who within 3 years of starting insulin. We reviewed why patients develop this misconcept ion and explained that it is the hyperglyce muna that is causing complicati ons and not the insulin but rather the delay of starting insulin that ultimately leads to . Greg would prefer to try the incretin first before starting insulin. He has been having stomach discomfort since he had surgery for gallstones in February and we discussed how incretins could cause pancreatit is, therefore, we will discuss with Kyra Mauro NP before recommendi ng to determine if his stomach pain is related to pancreatit is. Greg verbalized understand ing and agreeing with plan. Reviewed the following: Disease Process: Goals of Treatment. Natural progressio n of diabetes Monitoring : Appropriat e times to test blood sugar and target blood sugars. Evaluation of blood glucose results and care of meter and strips. Nutrition: Identifica tion of high carb foods, effects of carbs, carb counting and developing a meal plan. Label reading. The Plate Method. Physical Activity: Introducti on to its importance . Effects of regular physical activity on blood sugars. Chronic Complicati ons: Introducti on to long-term effects, Importance of ABCs (A1c, Blood pressure and Cholestero l control) in limiting cardiovasc ular risk. Other strategies for maintainin g heart health. Health Concerns Section Related Observation LastModified by Organization Detai ls LastModified Time None Recorded Concern Status LastModified by Organization Details LastModified Time None Recorded Advance Directives Directive None Recorded Payers Encounter Date Sequence Insurance Name Policy Number Policy Delong Covered Member ID Delong Member ID Guarantor Name 05/03/2016 1 [facility] DIRECT CONNECTORCARE TYPE II (HMO) [facility] [id number] 1 [facility] 05/31/2016 1 [facility] - DIRECT CONNECTORCARE TYPE II (HMO) [facility] [id number] 1 [facility] 06/06/2016 1 [facility] - DIRECT CONNECTORCARE TYPE II (HMO) [facility] [id number] 1 [facility] 06/22/2016 1 [facility] - DIRECT CONNE[employer]CARE TYPE II (HMO) [facility] [id number] 1 [facility] 07/04/2016 1 [facility] TYPE II (HMO) Greg Land [id number] 1 Greg Land Notes Date Note Type Note Provider Name and Address Organization Details Recorded Time 05/03/2016 text/html Patient recently reconnected care after last seen in 06/2014. States he was unable to be seen due to his insurance issues. Patient with type 2 DM and HTN. Was off all his medication for over 1 year. Recently resumed. Polyuria, polydipsia and polyphagia have improved since the medications. Denies F/C/N/V. Denies CP/SOB/CUEVAS. No erectile dysfunction. No dysuria or hematuria. No urinary incontinence. Recently undergone laparoscopic cholecystectomy in 02/2016. Went to [facility] 3 weeks ago due to CP. His CXR, CBC, Troponin and CMP all within normal, except for elevated BS. No recurring symptoms since. Robles Isaac MD [address] [place] [address], [id number] [facility] [place] 23:18:53 05/31/2016 text/html pt presents with daughter,pt has been complaining for 2 months about back pain, to shoulder, stable pain, ongoing, not related to exercise. for 2 weeks has abdominal pain, and inbetween thigh pain. was put on gabapetin for this, no improvement.hurts ot of no where.pt has arthritis pain.pain starts in the back.and lower back pt has stones in stomach. and bladder stones.gall bladder was removed in february 28. ever since then, pt has had back pain.pain occurs all the time, worse at night. pt was evaluated in ER, with imaging came to see. Dr. Isaac, but medicine has not worked. reports 2 weeks of GI discomfort, since gallbladder removed persistent diarrhea but reports this is worse. endores generalized lower GI pain,endorses pain with urination,waking up at night to urinate. prostate examined.1 year ago during colonscopy. reports anterior lower abdominal pain x 2 weeks. endorse diarrhea since procedure. diarrhea worse. no fever. Kyra Mauro, PRABHU-CALEB [address] [place] [address], [phone] [facility] [place] 16:26:27 06/06/2016 text/html back pain, start ed 1 week after surgery, march 02.feels like a stabbing pain. comes and goes.there all day. usually 1 minute. reports pain is behind shoulder blade, tender to touch. massage is painful. started after surgery. lower stomach,right lower quadrant stabbing, related to food.no diarrhea for 2 days, but has returned.three times of diarrhea, occurs after eating.no blood in it,no nocturnal awakenings. but has lost weight.has had colonoscopy, does not have mucous in stool (colonoscopy 2013).notes diarrhea may be related to metformin. Kyra Mauro, [address], [phone] [facility] [place] 10:22:13 06/22/2016 text/html pt has pain in b ack to front around shoulder pain is interfering with ability to sleep.pain lasts all day.feels as if the shoulder falls asleep and drops. Kyra Mauro [address], [phone] [facility] [place] 11:34:50 07/04/2016 text/html Diabetes Self Management History & IntakeReported bypatient.Patient HistoryPatient chief complaint today:Needs help interpreting blood sugars; has a family history of diabetes; Completed Diabetes Self-Assessment Form received, reviewed and sent for chart upload. Present at Visit:activity assistant (language)[place] Zealander; patient's child (Daughter helped interpret appt.) Recent Lab Tests:See Flow Sheet/Chart for current lab values.; Hemoglobin A1C:7.7% Associated Symptoms:polyuria;noc turia: 5 times per night;polydypsia Hypoglycemia SymptomsNo hypoglycemia reported. Home Glucose Monitoring:brought blood glucose meter; He admits he does not test his blood sugar often. Blood Sugar Readings:See attached blood sugar download. Diabetes Medications:metformin er (1,000 mg QD); glipizide (10 mg, QD) Nutrtition/dietaryDie tary recall follows- typical day (Refer to New Pt. Intake Form) Julieta Barrett RN, BSN, [address], [phone], [facility] [place] 16:03:29
--- OUTSIDE RECORDS SUMMARY | 2024-10-04 13:10 | XMS_ITS | Encounter Summary ---
Author Organization [employer] Address [address] [facility] [address] [place] [address] Care Team Providers Care Second Crusher Name Role Phone Carolina Siddiqi MD Primary Care Provide r Encounter Details Date Type Department Care Team (Late st Contact Info) Description 09/13/2024 Orders Only GENERIC EXTERNAL DATA DEPARTMENT Provider, Generic External Data Social History Tobacco Use Types Packs/Day Years Used Date Smoking Tobacco: Never Passive Smoke Exposure: Never Smokeless Tobacco: Never Alcohol Use Standard Drinks/Week Comments Never 0 (1 standard drink = 0.6 oz pur e alcohol) Depression Answer Date Recorded Patient Health Questionnaire-9 Score 10 02/26/2024 Patient Health Questionnaire-9 Score 10 02/26/2024 Last PHQ-9: Questionnaire Data Not on file 0 02/26/2024 Housing Stability Answer Date Recorded What is your housing situation today? I have negrito phillips 07/03/[address] you li ve. Do you have problems with any of the following? None of the above 07/03/2023 Food Insecurity Answer Date Recorded Within the past 12 months, y ou worried that your food would run out before you got money to buy more: Never True 07/03/2023 Within the past 12 months,th e food you bought just didn't last and you didn't have enough money to get more: Never True Transportation Answer Date Recorded In the past 12 months, has l ack of transportation kept you from medical appts, meetings, work or from getting things needed for daily living? No 07/03/2023 Utilities Answer Date Recorded In the past 12 months, has t he electric, gas, oil or water company threatened to shut off services in your home? No 07/03/2023 Depression Answer Date Recorded Patient Health Questionnaire-2 Score 1 02/26/2024 Sex and Gender Information Value Date Recorded Sex Assigned at Male 03/22/2023 9:37 AM EDT Legal Sex Male 3:05 PM EDT Gender Identity Male 03/22/2023 9:37 AM EDT Sexual Orientation Straight 03/22/2023 9: 37 AM EDT documented as of this encounter Plan of Treatment Not on file documented as of this encounter Goals Goal Patient Goal Type Associated Problems Recent Progress Patient-Stated? Author Blood Pressure < 140/90 Blood Pressure 111/66(2024 10:08 AM EST) No Ivana Puente PharmD Take your medication every day Lifestyle No Ivana Puente PharmD Hemoglobin A1c < 7 Result Component 6.5( 2:27 PM EDT) No Ivana Puente PharmD documented as of this encounter Procedures Procedure Name Priority Date/Time Associated Diagnosis Comments LIPID PANEL, STANDARD Routine 09/13/2024 9:46 AM EST BASIC METABOLIC PANEL Routine 09/13/2024 9:46 AM EST documented in this encounter Results * Lipid Panel, Standard (09/13/2024 9:46 AM EST) Triglycerides 73 <150 mg/dL [facility] Comment:Desirable Triglyceri de: less than 150 mg/dLBorderline High Triglyceride 150-199 mg/dLHigh Triglyceride: 200-499 mg/dLVery High Triglyceride: greater than or equal to 5OO mg/dL Cholesterol 113 <200 mg/dL [facility] Comment:Desirable Cholestero l: less than 200 mg/dLBorderline High Cholesterol: 200-239 mg/dLHigh Cholesterol: greater than 239 mg/dL LDL Cholesterol Calculated 47 <100 mg/dL [facility] Comment:Desirable LDL: less than 100 mg/dLNear Optimal/Above Optimal LDL: 110- 129 mg/dLBorderline High LDL: 130-159 mg/dLHigh LDL: 160-189 mg/dLVery High LDL: greater than or equal to 190 mg/dL HDL Cholesterol 52 >40 mg/dL [facility] Comment:Desirable HDL: great er than 40 mg/dL Note: This HDL assay may give artificially low results in patients with liver disease. 09/13/2024 9:46 AM EST 09/13/2024 9:46 AM EST us Generic External Data Provider LAB BLOOD ORDERAB LES Final Result Performing Organization Address [facility] Co de Phone Number [facility] [address] [place] [phone] * (ABNORMAL) Basic Metabolic Panel (09/13/2024 9:46 AM EST) Sodium 145 135 - 145 mmol/L [facility] Potassium 4.8 3.3 - 5.1 mmol/L [facility] Chloride 114(H) 96 - 108 mmol/L [facility] Carbon Dioxide 27 22 - 29 mmol/L [facility] Anion Gap 9(L) 12 - 20 [facility] Urea Nitrogen (BUN) 14 9 - 16 mg/dL [facility] Creatinine, Serum 1.77(H) 0.5 - 1.4 mg/dL [facility] Estimated Glomerular Filt Rate 39 [facility] Comment:Chronic Kidney Disea se: Estimated GFR < 60 mL/min/[id number] Kidney Disease: Estimated GFR < 15 mL/min/1.73m2 Glucose 126(H) 60 - 115 mg/dL [facility] Calcium 9.1 8.4 - 10.2 mg/dL [facility] 09/13/2024 9:46 AM EST 09/13/2024 9:46 AM EST us Generic External Data Provider LAB BLOOD ORDERAB LES Final Result Performing Organization Address [facility] Co de Phone Number [facility] [address] [place] [phone] documented in this encounter Visit Diagnoses Not on filedocumented in this encounter Additional Health Concerns Assessment Noted Time PHQ-9 Depression Total Score: 10 02/25/ 024 10:07 AM EDT documented as of this encounter Care Teams Second Crusher Relationship Specialty Start Date End Date Carolina Siddiqi MD [address] [place] [address] PCP - General Internal Medicine 07/11/23 Jolie Thompson Community Health Worker Case Management 02/14/24 documented as of this encounter
--- OUTSIDE RECORDS SUMMARY | 2024-10-04 13:10 | XMS_ITS | Encounter Summary ---
Author Organization [employer] Address [address] [facility] 7[address] [place] [address] Care Team Providers Care Mine Analyst Name Role Phone Carolina Siddiqi MD Primary Care Provide r Encounter Details Date Type Department Care Team ([facility] st Contact Info) Description 02/23/2024 Orders Only [facility] [address] [place] [address] Yeimi Saenz MD [address] [place] [address] Social History Tobacco Use Types Packs/Day Years [...] on file documented as of this encounter Visit Diagnoses Not on filedocumented in this encounter Additional Health Concerns Assessment Noted Time PHQ-9 Depression Total Score: 23 023 10:38 AM EDT documented as of this encounter Care Teams Mine Analyst Relationship Specialty Start Date End Date Carolina Siddiqi MD [address] [place] [address] PCP - General Internal Medicine 07/11/23 Jolie Thompson Community Health Worker Case Management 02/14/24 documented as of this encounter
--- OUTSIDE RECORDS SUMMARY | 2024-10-04 13:10 | XMS_ITS | Encounter Summary ---
Author Organization [employer] Address [address] [facility] 7[address] [place] [address] Care Team Providers Care Machine Load Clerk Name Role Phone Carolina Siddiqi MD Primary Care Provide r Encounter Details Date Type Department Care Team ([facility] st Contact Info) Description 07/19/2024 Orders Only [facility] [address] [place] [address] Carolina Siddiqi MD [address] [place] [address] Social History Tobacco Use Types Packs/Day Years [...] enough money to get more: Never True 10/ Transportation Answer Date Recorded In the past [...] Pressure 111/66(2024 10:08 AM EST) No Ivana Puente, PharmD Take your medication every day Lifestyle No RobsoneIvana, PharmD Hemoglobin A1c < 7 Result Component 6.5( 4 2:27 PM EDT) No Ivana Puente, PharmD documented as of this encounter Visit Diagnoses Not on filedocumented in this encounter Additional Health Concerns Assessment Noted Time PHQ-9 Depression Total Score: 10 024 10:07 AM EDT documented as of this encounter Care Teams Machine Load Clerk Relationship Specialty Start Date End Date Carolina Siddiqi MD [address] [place] [phone] PCP - General Internal Medicine 07/11/23 Jolie Thompson Community Health Worker Case Management 02/14/24 documented as of this encounter
--- OUTSIDE RECORDS SUMMARY | 2024-10-04 13:10 | XMS_ITS | Encounter Summary ---
Author Organization [employer] Address [address] [facility] [address]t [place] [address] Care Team Providers Care Ore Buyer Name Role Phone Carolina Siddiqi MD Primary Care Provide r Reason for Visit * Reason Comments chronic conditions Encounter Details Date Type Department Care Team (Latest Contact Info) Description 10/01/2024 10:00 AM EST Office Visit [facility] [address] [place] [address] Carolina Siddiqi MD [address] [place], [place] [phone] COVID-19 (Primary Dx); Rhinitis, unspecified type; Both eyes affected by mild nonproliferative diabetic retinopathy with macular edema, associated with type 2 diabetes mellitus (CMS/HCC); Chronic systolic congestive heart failure (CMS/HCC) Social History Tobacco Use Types Packs/Day Years [...] Recorded Patient Health Questionnaire-2 Score 1 02/26/2024 Internet Access Answer Date Recorded Internet Access Q1 Yes 10/01/2024 Internet Access Q2 Not on file 10/01/2024 Sex and Gender Information Value Date Recorded Sex Assigned at Male 03/22/2023 9:37 AM EDT Legal Sex Male 3:05 PM EDT Gender Identity Male 03/22/2023 9:37 AM EDT Sexual Orientation Straight 03/22/2023 9: 37 AM EDT documented as of this encounter Last Filed Vital Signs Vital Sign Reading Time Taken Comments Blood Pressure 111/66 10/01/2024 10:08 AM EST Pulse 84 10/01/2024 10:08 AM EST Temperature 36.8 ??C (98.3 ??F) 10/01/2024 10:[address] Respiratory Rate 16 10/01/2024 10:08 AM EST Oxygen Saturation 97% 10/01/2024 10:08 AM EST Inhaled Oxygen Concentration - - Weight 54.1 kg (119 lb 3.2 oz) 10/01/2024 10:08 AM EST Height - - Body Mass Index 21.12 07/03/2024 11:19 AM EDT documented in this encounter Progress Notes * Carolina Mahajan MD - 10/01/2024 10:00 AM EST SUBJECTIVE: Greg Land is a 64 y.o. year old male who presents for Chronic Disease Management . Acute Concerns: Patient reports 2 days of having malaise, body aches, chest tightness, runny nose Social History Social History Narrative Not on file Patient Active Problem List Diagnosis Type 2 diabetes mellitus with hyperglycemia, without long-term current use of insulin ([facility]) HTN (hypertension) Bilateral hearing loss Depressive state Loneliness Colon cancer screening Unstable gait Verruca Onycholysis Coronary artery disease of [place] artery of [place] heart with stable angina pectoris ([facility]) Acute systolic congestive heart failure ([facility]) Chronic systolic congestive heart failure ([facility]) GERD (gastroesophageal reflux disease) Dysphagia Nausea Skin lesion History of cardiac catheterization Ischemic cardiomyopathy NSTEMI (non-ST elevated myocardial infarction) ([facility]) Acute HFrEF (heart failure with reduced ejection fraction) ([facility]) Encounter for preventive care Chronic pain of right knee Cricopharyngeal achalasia COVID-19 Rhinitis Both eyes affected by mild nonproliferative diabetic retinopathy with macular edema, associated with type 2 diabetes mellitus ([facility]) No family history on file. Review of Systems Constitutional: Negative. HENT: Negative. Respiratory: Negative. Cardiovascular: Negative. Musculoskeletal: Positive for arthralgias and myalgias. OBJECTIVE: Vitals: 10/01/24 1008 BP: 111/66 Pulse: 84 Resp: 16 Temp: 98.3 ??F (36.8 ??C) TempSrc: Oral SpO2: 97% Weight: 119 lb 3.2 oz (54.1 kg) Physical Exam Constitutional: Appearance: Normal appearance. Cardiovascular: Rate and Rhythm: Normal rate and regular rhythm. Pulmonary: Effort: Pulmonary effort is normal. Breath sounds: Normal breath sounds. Abdominal: General: Abdomen is flat. Palpations: Abdomen is soft. Musculoskeletal: Right lower leg: No edema. Left lower leg: No edema. Neurological: Mental Status: He is alert. Follow Up: Follow up in about 3 months (around 12/30/2024) for chronic conditions . Current Outpatient Medications on File Prior to Visit Medication Sig Dispense Refill Alcohol Swabs (Alcohol Prep) 70 % pads USE DIRECTED TO TEST BLOOD SUGAR TWICE DAILY 100 each 3 aspirin 81 MG EC tablet Take 1 tablet by mouth Once per day. atorvastatin (Lipitor) 80 MG tablet Take 1 tablet by mouth at bedtime. Blood Glucose Monitoring Suppl (FreeStyle [place] Lite) w/Device kit Use to test blood sugar 2 times daily 1 kit 0 Blood Glucose Monitoring Suppl (ONE TOUCH ULTRA 2) w/Device kit Use to check BS twice daily as directed 1 kit 0 Blood Pressure Monitoring (3 Series BP Monitor/Upper Arm) device Call clinic if systolic >170 ordiastolic >90. Call for appointment if values consistently above >140/90 on home monitor. 1 each 0 Brilinta 90 MG tablet Take 1 tablet by mouth 2 times daily. clotrimazole (Lotrimin) 1 % cream APPLY TOPICALLY TO THE AFFECTED AREA(S) OF THE SKIN AND TOENAILS EVERY DAY DIRECTED FOR 12 WEEKS dapagliflozin (Farxiga) 10 MG Take 1 tablet (10 mg) by mouth Once per day. 30 tablet 2 famotidine (Pepcid) 20 MG tablet Take 1 tablet (20 mg) by mouth Once per day. 30 tablet 11 FREESTYLE LITE test strip Use to test blood sugar 2 times daily 100 each 12 glucose blood (FREESTYLE LITE) test strip USE DIRECTED TO TEST BLOOD SUGAR ONCE DAILY 100 each 11 glucose blood (OneTouch Ultra Test) test strip Use to check BS twice daily as directed 100 each 12 lidocaine (Lidoderm) 5 % patch APPLY 1 PATCH TOPICALLY TO SKIN, LEAVE ON FOR 12 HOURS AND OFF FOR 12 HOURS DIRECTED FOR 28 DAYS metoprolol succinate XL (Toprol-XL) 50 MG 24 hr tablet Take 1 tablet (50 mg) by mouth Once per day.90 tablet 3 ondansetron ODT (Zofran-ODT) 8 MG disintegrating tablet DISSOLVE 1 TABLET ENCIMA DE LENGUA EVERY 8 HOURS NEEDED FOR NAUSEA FOR UP TO 7 DAYS 20 tablet 0 OneTouch Delica Lancets 33G misc Use to check BS twice daily as directed 100 each 0 sacubitril-valsartan (Entresto) 97-103 MG tablet Take 1 tablet by mouth 2 times daily. 60 tablet 12 TRUEplus Lancets 33G misc USE DIRECTED TO TEST BLOOD SUGAR EVERY DAY 100 each 11 Trulicity 0.75 MG/0.5ML solution auto-injector Inject 0.75 mg as directed 1 (one) time per week. No current facility-administered medications on file prior to visit. Problem List Items Addressed This Visit COVID-19 - Primary I advise to drink plenty of water and rest Acetaminophen PRN Flovent once a day Quarantine as per CDC guidelines If worsening symptoms SOB, chest pain, confusion, he was instructed to call 911 or got to the emergency room TOMÁS Chamberlain could not be prescribe due to interactions with brillinta Relevant Medications acetaminophen (Tylenol Extra Strength) 500 MG tablet Other Relevant Orders POCT Rapid Covid-19 BinaxNOW (Completed) Rhinitis Relevant Medications fluticasone (Flonase) 50 MCG/ACT nasal spray Both eyes affected by mild nonproliferative diabetic retinopathy with macular edema, associated with type 2 diabetes mellitus (CMS/HCC) Diabetes stable C/w same interventions and routine eye exams Chronic systolic congestive heart failure (CMS/HCC) Patient is clinically stable continue to f/u with cardiology documented in this encounter Miscellaneous Notes * Assessment & Plan Note - Carolina Mahajan MD - 10/01/2024 12:32 PM EST Associated Problem(s): Chronic systolic congestive heart failure (CMS/HCC) Patient is clinically stable continue to f/u with cardiology * Assessment & Plan Note - Carolina Mahajan MD - 10/01/2024 12:32 PM EST Associated Problem(s): Both eyes affected by mild nonproliferative diabetic retinopathy with macular edema, associated with type 2 diabetes mellitus (CMS/HCC) Diabetes stable C/w same interventions and routine eye exams * Assessment & Plan Note - Carolina Mahajan MD - 10/01/2024 12:31 PM EST Associated Problem(s): COVID-19 I advise to drink plenty of water and rest Acetaminophen PRN Flovent once a day Quarantine as per CDC guidelines If worsening symptoms SOB, chest pain, confusion, he was instructed to call 911 or got to the emergency room TOMÁS Paxlovid could not be prescribe due to interactions with brillinta documented in this encounter Plan of Treatment Not on file documented as of this encounter Goals Goal Patient Goal Type Associated Problems Recent Progress Patient-Stated? Author Blood Pressure < 140/90 Blood Pressure 111/66(2024 10:08 AM EST) No Ivana Puente PharmD Take your medication every day Lifestyle No Ivana Puente PharmD Hemoglobin A1c < 7 Result Component 6.5( 4 2:27 PM EDT) No Ivana Puente PharmD documented as of this encounter Procedures Procedure Name Priority Date/Time Associated Diagnosis Comments POCT RAPID COVID ANTIGEN Routine 10/01/2024 10:34 AM EST COVID-19 documented in this encounter Results * (ABNORMAL) POCT Rapid Covid-19 BinaxNOW (10/01/2024 10:34 AM EST) Rapid COVID Ag Positive QC Media Lot # [id number] Lot# Expiration Date [id number] Swab 10/01/2024 10:3 4 AM EST Carolina Mahajan MD POINT OF CARE TEST EN TER/EDIT ORDERABLES Final Result documented in this encounter Visit Diagnoses Diagnosis COVID-19- Primary Rhinitis, unspecified type Both eyes affected by mild nonproliferative diabetic retinopathy with macular edema, associated with type 2 diabetes mellitus (CMS/HCC) Chronic systolic congestive heart failure (CMS/HCC) documented in this encounter Additional Health Concerns Assessment Noted Time PHQ-9 Depression Total Score: 10 02/25/ 024 10:07 AM EDT documented as of this encounter Care Teams Ore Buyer Relationship Specialty Start Date End Date Carolina Siddiqi MD [address] [place] [address] PCP - General Internal Medicine 07/11/23 Jolie Thompson Community Health Worker Case Management 02/14/24 documented as of this encounter
--- OUTSIDE RECORDS SUMMARY | 2024-10-04 13:10 | XMS_ITS | Clinical Summary ---
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 Blood Pressure Monitoring (3 Series BP Monitor/Upper Arm) device Call clinic if systolic >170 or diastolic >90. Call for appointment if values consistently above >140/90 on home monitor. 1 each 023 Active aspirin 81 MG EC tablet Take 1 tablet by mouth Once per day. 024 Active atorvastatin (Lipitor) 80 MG tablet Take 1 tablet by mouth at bedtime. Active Brilinta 90 MG tablet Take 1 tablet by mouth 2 times daily. Active dapagliflozin (Farxiga) 10 MG Take 1 tablet (10 mg) by mouth Once per day. 30 tablet 2 Active metoprolol succinate XL (Toprol-XL) 50 MG 24 hr tablet Take 1 tablet (50 mg) by mouth Once per day. 90 tablet 3 024 2024 Active lidocaine (Lidoderm) 5 % patch APPLY 1 PATCH TOPICALLY TO SKIN, LEAVE ON FOR 12 HOURS AND OFF FOR 12 HOURS DIRECTED FOR 28 DAYS Active clotrimazole (Lotrimin) 1 % cream APPLY TOPICALLY TO THE AFFECTED AREA(S) OF THE SKIN AND TOENAILS EVERY DAY DIRECTED FOR 12 WEEKS Active famotidine (Pepcid) 20 MG tabletIndications :Gastroesophageal reflux disease, unspecified whether esophagitis present Take 1 tablet (20 mg) by mouth Once per day. 30 tablet 11 024 2024 Active ondansetron ODT (Zofran-ODT) 8 MG disintegrating tabletIndications :Gastroesophageal reflux disease, unspecified whether esophagitis present,Nausea DISSOLVE 1 TABLET ENCIMA DE LENGUA EVERY 8 HOURS NEEDED FOR NAUSEA FOR UP TO 7 DAYS 20 tablet Active FREESTYLE LITE test stripIndications: Type 2 diabetes mellitus with hyperglycemia, without long-term current use of insulin ([facility]) Use to test blood sugar 2 times daily 100 each 12 024 2024 Active Blood Glucose Monitoring Suppl (FreeStyle [place] Lite) w/Device kitIndications:Ty pe 2 diabetes mellitus with hyperglycemia, without long-term current use of insulin ([facility]) Use to test blood sugar 2 times daily 1 kit Active sacubitril-valsar stoddard (Entresto) 97-103 MG tabletIndications :Primary hypertension,Material Control Specialist nilam systolic congestive heart failure ([facility]) Take 1 tablet by mouth 2 times daily. 60 tablet 12 024 2024 Active TRUEplus Lancets 33G miscIndications:T ype 2 diabetes mellitus with hyperglycemia, without long-term current use of insulin ([facility]) USE DIRECTED TO TEST BLOOD SUGAR EVERY DAY 100 each 11 Active glucose blood (FREESTYLE LITE) test stripIndications: Type 2 diabetes mellitus with hyperglycemia, without long-term current use of insulin ([facility]) USE DIRECTED TO TEST BLOOD SUGAR ONCE DAILY 100 each 11 Active Trulicity 0.75 MG/0.5ML solution auto-injector Inject 0.75 mg as directed 1 (one) time per week. Active OneTouch Delica Lancets 33G misc Use to check BS twice daily as directed 100 each Active Blood Glucose Monitoring Suppl (ONE TOUCH ULTRA 2) w/Device kit Use to check BS twice daily as directed 1 kit Active glucose blood (OneTouch Ultra Test) test strip Use to check BS twice daily as directed 100 each 12 024 2024 Active Alcohol Swabs (Alcohol Prep) 70 % padsIndications:T ype 2 diabetes mellitus with hyperglycemia, without long-term current use of insulin (CMS/HCC) USE DIRECTED TO TEST BLOOD SUGAR TWICE DAILY 100 each 3 025 Active fluticasone (Flonase) 50 MCG/ACT nasal sprayIndications: Rhinitis, unspecified type Administer 1-2 sprays into each nostril Once per day. Shake gently. Before first use, prime pump. After use, clean tip and replace cap. 16 g 025 2025 Active acetaminophen (Tylenol Extra Strength) 500 MG tabletIndications :COVID-19 Take 2 tablets (1,000 mg) by mouth every 8 (eight) hours if needed for mild pain, moderate pain, headaches or fever for up to 10 days. 30 tablet 025 2024 Active Alcohol Swabs 70 % padsIndications:T ype 2 diabetes mellitus with hyperglycemia, without long-term current use of insulin ([facility]) Use to test blood sugar 2 times daily 100 each 024 2024 Discontinued Active Problems Problem Noted Date Diagnosed Date COVID-19 10/01/2024 Assessment & Plan (10/01/2024 12:31 PM EST): I advise to drink plenty of water and rest Acetaminophen PRN Flovent once a day Quarantine as per CDC guidelines If worsening symptoms SOB, chest pain, confusion, he was instructed to call 911 or got to the emergency room TOMÁS Chamberlain could not be prescribe due to interactions with brillinta Rhinitis 10/01/2024 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, associated with type 2 diabetes mellitus 10/01/2024 Assessment & Plan (10/01/2024 12:32 PM EST): Diabetes stable C/w same interventions and routine eye exams Cricopharyngeal achalasia 08/21/2024 Encounter for preventive care 07/01/2024 Assessment & Plan (07/01/2024 4:31 PM EDT): See HPI Chronic pain of right knee 07/01/2024 Assessment & Plan (07/01/2024 4:30 PM EDT): XRAY ordered Patient referred to orthopedics History of cardiac catheterization 04/30/2024 Ischemic cardiomyopathy 04/30/2024 NSTEMI (non-ST elevated myocardial infarction) 0 04/30/2024 Acute HFrEF (heart failure with reduced ejection fraction) 04/30/2024 Dysphagia 04/03/2024 Nausea 04/03/2024 Assessment & Plan (04/03/2024 1:21 PM EDT): He tell me he think nausea is cause by medication Entresto, I advise to take Zofran before he takes his medication Skin lesion 04/03/2024 Chronic systolic congestive heart failure 2023 Assessment & Plan (10/01/2024 12:32 PM EST): Patient is clinically stable continue to f/u with cardiology Assessment & Plan (07/01/2024 4:19 PM EDT): I went up on entresto dose, c/w ret of medications F/u with cardiology Assessment & Plan (04/03/2024 1:23 PM EDT): Clinically stable c/w same medications prescribed by cardiology, f/u with cardiology closely Assessment & Plan (02/26/2024 12:16 PM EDT): Clinically stable today, I will call cardiology office to ensure he has f/u appointment meanwhile I will monitor closely and I will bring him back in 4 weeks GERD (gastroesophageal reflux disease) Assessment & Plan (04/03/2024 1:20 PM EDT): I advise patient to avoid NSAIDs, spicy and acid food, I advise to eat at the same time every day, I advise to elevate the head of the bed and take medications as prescribe Assessment & Plan (02/26/2024 12:14 PM EDT): I advise patient to avoid NSAIDs, spicy and acid food, I advise to eat at the same time every day, I advise to elevate the head of the bed and take medications as prescribe Coronary artery disease of n ative artery of [place] heart with stable angina pectoris 01/26/2024 Overview (01/26/2024): C.Cath on 12/21/23 at [facility]: Severe LAD disease + D1 stenosis--> had PCI/drug eluting stent. Also showed 60 % stenosis in mid RCA + Severe diffuse disease in the left PDA--> med management Assessment & Plan (02/26/2024 12:16 PM EDT): C.Cath on 12/21/23 at [facility]: Severe LAD disease + D1 stenosis--> had PCI/drug eluting stent. Also showed 60 % stenosis in mid RCA + Severe diffuse disease in the left PDA--> med management C/w current meds F/u with cardiology Assessment & Plan (01/26/2024 3:11 PM EDT): S/p PCI to LAD D2 on 12/20 Continue Aspirin, ticagrelor, metoprolol XL 50mg /day, atorvastatin 80mg Advised about tight control of HTN and dm Check BMP and Hb Fu w/ cardiology, needs cardiac rehab Acute systolic congestive heart failure 01/26/20 Assessment & Plan (01/26/2024 3:11 PM EDT): Sec to CAD/NSTEMI. Had BNP up to 600 2w ago, today is clinically euvolemic, sxs improving, seen by cardiology on 01/16 Check Hb and BNP today Start cardiac rehab Continue Entresto (losartan/hydrochlorothiazide and amlodipine were dc'd), metoprolol. Advised re tight control of DM and HTN. Onycholysis 11/27/2023 Colon cancer screening 09/12/2023 Unstable gait 09/12/2023 Verruca 09/12/2023 Loneliness 07/14/2023 Bilateral hearing loss 07/11/2023 Depressive state 07/11/2023 Assessment & Plan (07/14/2023 8:37 AM EDT): Assessment: ?? Patient with depressive symptoms and SI with no plan or intent. No risk for self-harm or HI. Reason for visit was to assess symptoms and provide support to patient. Symptoms are present in the context of medical issues, early assisted, adjusting to living alone and language barrier. Provided psychoeducation around depression and healthy lifestyle changes. Patient agreed for OP therapy referral. ?? At this time Greg Land meets criteria for Visit Diagnoses: Problem List Items Addressed This Visit ? Other ?? Depressive state - Primary ?? Relevant Orders ?? Referral to Behavioral Health ?? Loneliness ?? Patient ready to address current needs Yes ?? Strengths include support from daughter. Patient is in Action stage. ?? PLAN: 1. Follow up with [facility]: Not recommended for follow-up 2. Patient goal is to improve health 3. Behavioral Recommendations a. Comply with medical recommendations b. Begin incorporating healthy changes in daily life c. May utilize [facility] and/or hotline, if symptoms worsen d. May reach out to [facility] for additional support Assessment & Plan (07/11/2023 1:04 PM EDT): [facility] call counseling done, he declines for now medications Type 2 diabetes mellitus wit h hyperglycemia, without long-term current use of insulin 06/05/2023 Assessment & Plan (07/01/2024 4:31 PM EDT): Diabetes is: controlled - Lab Results Component Value Date HGBA1C 6.5 (A) 07/01/2024 HGBA1C 7.0 (A) 02/26/2024 HGBA1C 9.6 (A) 11/27/2023 - Lab Results Component Value Date CREATININE 1.75 (H) 06/26/2024 -Changes: none - Diabetic eye exam:up to date, pending procedure - Diabetic foot exam:pending - Continue lifestyle modifications - Continue current medications - Follow up: 3 months Assessment & Plan (02/26/2024 12:14 PM EDT): Diabetes is: controlled - Lab Results Component Value Date HGBA1C 7.0 (A) 02/26/2024 HGBA1C 9.6 (A) 11/27/2023 HGBA1C 9.2 (A) 11/24/2023 - Lab Results Component Value Date CREATININE 1.51 (H) 02/23/2024 -Changes: none - Diabetic eye exam:pending - Diabetic foot exam:pending - Continue lifestyle modifications - Continue current medications - Follow up: 3 months Assessment & Plan (01/26/2024 3:07 PM EDT): Seems to be better controlled on farxiga (he was noncompliant w/ jardiance due to cost) + Trulicity 0.75mg /wk DC metformin due to intolerance Pt to fu w/ PCP in 1 m, he will call back if BS remain above 180 most of the times Assessment & Plan (11/27/2023 5:05 PM EDT): Diabetes is: not controlled - Lab Results Component Value Date HGBA1C 9.6 (A) 11/27/2023 HGBA1C 9.2 (A) 11/24/2023 HGBA1C 8.1 (A) 07/11/2023 -No results found for: GLUF , MICROALBUR , LDLCALC , CREATININE -Changes: I went up on jardiance to 25mg and added trulicity 0.75mg weeklm c/w metformin - Diabetic eye exam:up to date - Diabetic foot exam:referral done - Continue lifestyle modifications - Follow up: 3 months Assessment & Plan (09/13/2023 10:48 AM EST): Last A1c 8.1, glucose today 500, urine tone today negative for ketones Patient admits he has not being adherent with diet, he came after eating dessert (flan) and just ate rice and beans C/w metformin, Iadded today jardiance Extensive discussion about healthy option for diabetic diet done Assessment & Plan (07/11/2023 1:03 PM EDT): - Lab Results Component Value Date HGBA1C 8.0 (A) 06/05/2023 -No results found for: GLUF , MICROALBUR , LDLCALC , CREATININE - Diabetic eye exam: referral done - Diabetic foot exam: pending - Continue lifestyle modifications - Continue current medications - HTN (hypertension) 06/05/2023 Assessment & Plan (07/01/2024 4:30 PM EDT): Maintenance: BMP: up to date Lipid Panel: up to date ASCVD Risk: high risk patient on max dose Lipitor and brillinta 90mg BID, ASA 81mg daily -BP readings not at goal at home I increased her entresto today - Aerobic exercise to reduce BP. Initial goal of 30 min walk 3-5x/week. Increase as tolerated. - low-sodium diet (goal: <2g/day) and heart healthy diet such as DASH to reduce BP and prevent ASCVD. - Home BP monitoring 1-2 x day with goal of <140/90. - Seek immediate medical attention for chest pain, palpitations, SOB, syncope, or sudden changes in mental status. - Do not change or discontinue current prescriptions without first consulting health care provider Assessment & Plan (02/26/2024 12:13 PM EDT): Maintenance: BMP:up to date Lipid Panel: up to date ASCVD Risk: high risk he is on ASA 81mhg and atorvastatin 80mg daily - Aerobic exercise to reduce BP. Initial goal of 30 min walk 3-5x/week. Increase as tolerated. - low-sodium diet (goal: <2g/day) and heart healthy diet such as DASH to reduce BP and prevent ASCVD. - Home BP monitoring 1-2 x day with goal of <140/90. - Seek immediate medical attention for chest pain, palpitations, SOB, syncope, or sudden changes in mental status. - Do not change or discontinue current prescriptions without first consulting health care provider Assessment & Plan (01/26/2024 3:10 PM EDT): BP is at goal today Continue Entresto + metoprolol (losartan/hydrochlorothiazide and amlodipine were dc'd). Check BMP today FU with PCP Patient agreed to be referred to [facility] to improve compliance. Assessment & Plan (11/27/2023 5:03 PM EDT): Uncontrolled Patient today is clinically asymptomatic I advise low Na diet C/w losartan/hydrochlorothiazide 100-25mg Patient was not taking amlodipine I re-started today at 10mg daily RTC 1 week for BP check with log with nurse if BP still very uncontrolled I will add carvedilol Assessment & Plan (09/13/2023 10:48 AM EST): - Aerobic exercise to reduce BP. Initial goal of 30 min walk 3-5x/week. Increase as tolerated. - low-sodium diet (goal: <2g/day) and heart healthy diet such as DASH to reduce BP and prevent ASCVD. - Home BP monitoring 1-2 x day with goal of <140/90. - Seek immediate medical attention for chest pain, palpitations, SOB, syncope, or sudden changes in mental status. - Do not change or discontinue current prescriptions without first consulting health care provider Assessment & Plan (07/11/2023 1:03 PM EDT): Maintenance: BMP: ordered today Lipid Panel: ordered today ASCVD Risk: Calculate pending updated labs -Today I started him on hyzaar 100/25mg and amlodipine 5mg, RTC with me 2-3 weeks - Aerobic exercise to reduce BP. Initial goal of 30 min walk 3-5x/week. Increase as tolerated. - low-sodium diet (goal: <2g/day) and heart healthy diet such as DASH to reduce BP and prevent ASCVD. - Home BP monitoring 1-2 x day with goal of <140/90. - Seek immediate medical attention for chest pain, palpitations, SOB, syncope, or sudden changes in mental status. - Do not change or discontinue current prescriptions without first consulting health care provider Encounters Date Type Department Care Team Description 10/01/2024 10:00 AM EST Office Visit [facility] [address] [place] [address] Carolina Siddiqi MD COVID-19 (Primary Dx); Rhinitis, unspecified type; Both eyes affected by mild nonproliferative diabetic retinopathy with macular edema, associated with type 2 diabetes mellitus (CMS/HCC); Chronic systolic congestive heart failure (CMS/HCC) 10/01/2024 Travel 09/19/2024 Patient Outreach [facility] [address] [place] [address] Carolina Siddiqi MD Pre-visit Planning ([facility] screening completed on 12/31/2024) 09/13/2024 Orders Only GENERIC EXTERNAL DATA DEPARTMENT Provider, Generic External Data 09/12/2024 Refill [facility] [address] [place] [phone] Carolina Siddiqi MD Type 2 diabetes mellitus with hyperglycemia, without long-term current use of insulin ([facility]) 08/22/2024 Telephone [facility] [address] [place] [phone] Carolina Siddiqi MD 08/21/[address] [phone] Heike Schaefer, RN Results 08/21/2024 Orders Only [address] [phone] Carolina Siddiqi MD Cricopharyngeal achalasia (Primary Dx) 07/24/[address] [phone] Carolina Siddiqi MD 07/19/2024 Orders Only [facility] [address] [place] [phone] Carolina Siddiqi MD 07/18/2024 Refill [facility] [address] [place], [place] [phone] Carolina Siddiqi MD 07/10/[address] [phone] Carolina Siddiqi MD from Last 3 Months Immunizations Name Administration Dates Next Due Influenza injectable quadrivalent preservative f ree 05/31/2016,10/02/2013 Influenza, High Dose Seasonal, Preservative Free 06/17/2024 Influenza, seasonal, injectable, preservative fr ee 07/07/2014 Pneumococcal Conjugate PCV 20 07/01/2024 Pneumococcal Polysaccharide PPSV23 02/19/2014 RSV Bivalent 01/26/2024 Tdap 10/02/2013 Zoster, Recombinant 06/17/2024,01/26/2024 Social History Tobacco Use Types Packs/Day Years [...] Orientation Straight 03/22/2023 9: 37 AM EDT Last Filed Vital Signs Vital Sign Reading [...] 3.2 oz) 10/01/2024 10:08 AM EST Height 160 cm (5' 3 ) 07/03/2024 11:19 AM EDT Body Mass Index 21.12 07/03/2024 11:19 AM EDT Plan of Treatment Health Maintenance Due Date Last Done Comments CT Colonography 1959 Colonoscopy 1959 FIT 1959 FOBT 1959 Sigmoidoscopy 1959 Diabetes: Foot Exam 1969 Hepatitis C Screening 1977 Diabetes: Urine Protein Screening 1978 DTaP/Tdap/Td Vaccines (2 - Td or Tdap) 10/02/2023 10/02/2013 COVID-19 Vaccine ( season) 2024 02/19/2021, 01/22/2021 Depression Monitoring (PHQ-9) 08/27/2024 02/26/2024, 02/26/2024 Diabetes: Hemoglobin A1C 12/30/2024 024, 02/26/2024, 11/27/2023, Additional history exists Eye Exam 01/16/2025 01/17/2024, 04/2024, 01/17/2024, Additional history exists Depression Screening 02/25/2025 02/26/2024, 02/26/20 Alcohol/Substance Use Screening 07/01/2025 07/01/2024 Tobacco Screening 07/03/2025 07/03/2024 Lipid Panel 09/13/2025 09/13/2024, 06/26/2024 SDOH Screening 10/01/2025 10/01/2024 Colorectal Cancer Screening 09/27/2026 FIT DNA/Cologuard 09/27/2026 09/27/2023 RSV Patients and Patients Aged 60 years or older Completed 01/26/2024 Influenza Vaccine Completed 06/17/2024, , 07/07/2014, Additional history exists Zoster Vaccines Completed 06/17/2024, 01/26/2024 Pneumococcal Vaccine: 65+ Years Completed 07/01/2024, 02/19/2014 HIB Vaccines Aged Out No longer eligi ble based on patient's age to complete this topic HPV Vaccines Aged Out No longer eligi ble based on patient's age to complete this topic Hepatitis A Vaccines Aged Out No long er eligible based on patient's age to complete this topic Hepatitis B Vaccines Aged Out No long er eligible based on patient's age to complete this topic IPV Vaccines Aged Out No longer eligi ble based on patient's age to complete this topic Meningococcal Vaccine Aged Out No darwin rea eligible based on patient's age to complete this topic RSV under 20 months Aged Out No longe r eligible based on patient's age to complete this topic Rotavirus Vaccines Aged Out No longer eligible based on patient's age to complete this topic Goals Goal Patient Goal Type Associated Problems Recent Progress Patient-Stated? Author Blood Pressure < 140/90 Blood Pressure 111/66(2024 10:08 AM EST) No Ivana Puetne PharmD Take your medication every day Lifestyle No Ivana Puente PharmD Hemoglobin A1c < 7 Result Component 6.5( 2:27 PM EDT) No vIana Puente PharmD Procedures Procedure Name Priority Date/Time Associated Diagnosis Comments POCT RAPID COVID ANTIGEN Routine 10/01/2024 10:34 AM EST COVID-19 LIPID PANEL, STANDARD Routine 09/13/2024 9:46 AM EST BASIC METABOLIC PANEL Routine 09/13/2024 9:46 AM EST HEPATIC FUNCTION PANEL Routine 09/13/2024 9:46 AM EST Encounter for preventive care ECG 12-LEAD Routine 08/19/2024 3:37 PM EST Pre-op evaluation POCT GLYCATED HEMOGLOBIN, TOTAL Routine 07/01/2024 2:27 PM EDT Type 2 diabetes mellitus with hyperglycemia, without long-term current use of insulin (CMS/HCC) LAB COLOGUARD?? COLON CANCER SCREEN Routine 09/27/2023 8:35 AM EST Colon cancer screening from Last 3 Months or Most Recently Relevant to Health Maintenance Results * (ABNORMAL) POCT Rapid Covid-19 BinaxNOW (10/01/2024 10:34 AM EST) Rapid COVID Ag Positive QC Media Lot # [id number] Lot# Expiration Date [id number] Swab 10/01/2024 10:3 4 AM EST Carolina Mahajan MD POINT OF CARE TEST EN TER/EDIT ORDERABLES Final Result * Hepatic Function Panel (09/13/2024 9:46 AM EST) Pathologist [facility] Bilirubin, Total 0.7 0.0 - 1.0 mg/dL [facility] Bilirubin, Direct 0.2 0.0 - 0.5 mg/dL [facility] Aspartate Amino Transferase 23 5 - 37 U/L [facility] Alanine Aminotransferase 19 0 - 40 U/L [facility] Total Protein 7.2 6.5 - 8.0 g/dL [facility] Albumin Level 4.1 3.5 - 5.0 g/dL [facility] Alkaline Phosphatase 92 39 - 117 U/L [facility] Blood Venous blood specimen / Unknown 09/13/2024 9:46 AM EST 09/13/2024 9:46 AM EST Carolina Mahajan MD LAB BLOOD ORDERABLES Final Result [facility] [address] [place] [phone] * Lipid Panel, Standard (09/13/2024 9:46 AM EST) Triglycerides 73 <150 mg/dL [facility] Comment:Desirable Triglyceri de: less than 150 mg/dLBorderline High Triglyceride 150-199 mg/dLHigh Triglyceride: 200-499 mg/dLVery High Triglyceride: greater than or equal to 5OO mg/dL Cholesterol 113 <200 mg/dL [facility] Comment:Desirable Cholestero l: less than 200 mg/dLBorderline High Cholesterol: 200-239 mg/dLHigh Cholesterol: greater than 239 mg/dL LDL Cholesterol Calculated 47 <100 mg/dL [facility] Comment:Desirable LDL: less than 100 mg/dLNear Optimal/Above Optimal LDL: 110- 129 mg/dLBorderline High LDL: 130-159 mg/dLHigh LDL: 160-189 mg/dLVery High LDL: greater than or equal to 190 mg/dL HDL Cholesterol 52 >40 mg/dL [facility] Comment:Desirable HDL: great er than 40 mg/dL Note: This HDL assay may give artificially low results in patients with liver disease. 09/13/2024 9:46 AM EST 09/13/2024 9:46 AM EST us Generic External Data Provider LAB BLOOD ORDERAB LES Final Result Performing Organization Address City/State/[facility] Co de Phone Number [facility] [address] [place] [phone] * (ABNORMAL) Basic Metabolic Panel (09/13/2024 9:46 AM EST) Sodium 145 135 - 145 mmol/L [facility] Potassium 4.8 3.3 - 5.1 mmol/L [facility] Chloride 114(H) 96 - 108 mmol/L [facility] Carbon Dioxide 27 22 - 29 mmol/L [facility] Anion Gap 9(L) 12 - 20 [facility] Urea Nitrogen (BUN) 14 9 - 16 mg/dL [facility] Creatinine, Serum 1.77(H) 0.5 - 1.4 mg/dL [facility] Estimated Glomerular Filt Rate 39 [facility] Comment:Chronic Kidney Disea se: Estimated GFR < 60 mL/min/1.26x2Qoialv Kidney Disease: Estimated GFR < 15 mL/min/1.73m2 Glucose 126(H) 60 - 115 mg/dL [facility] Calcium 9.1 8.4 - 10.2 mg/dL [facility] 09/13/2024 9:46 AM EST 09/13/2024 9:46 AM EST Generic External Data Provider LAB BLOOD ORDERAB LES Final Result [facility] [address] [place] [phone] * ECG 12 lead (08/19/2024 3:37 PM EST) Narrative Jenniffer Rousseau MD - 08/19/2024 3:37 PM EST Sinus rhythm, rate: 67bpm Left axis deviation Abnormal ECG Alexxis Gonzalez CONSTRUCTION HELPER ECG ORDERABLES Final Res ult * (ABNORMAL) POCT HGB A1C (07/01/2024 2:27 PM EDT) Hemoglobin A1C 6.5(A) 4.0 - 6.0 % QC Media Lot # [id number] Lot# Expiration Date ,026 Blood 07/01/2024 2:27 PM EDT Carolina Mahajan MD POINT OF CARE TEST EN TER/EDIT ORDERABLES Final Result * Cologuard?? colon cancer screening (09/27/2023 8:35 AM EST) Cologuard Result Negative Negative 10/06/19 24 5:26 PM EST [facility] (CLIA #:[id number]) Comment: NEGATIVE TEST RESULT. A negative Cologuard result indicates a low likelihood that a colorectal cancer (CRC) or advanced adenoma (adenomatous polyps with more advanced pre-malignant features) ??is present. The chance that a person with a negative Cologuard test has a colorectal cancer is less than 1 in 1500 (negative predictive value >99.9%) or has an ??advanced adenoma is less than ??5.3% (negative predictive value 94.7%). These data are based on a prospective cross-sectional study of 10,000 individuals at average risk for colorectal cancer who were screened with both Cologuard and colonoscopy. (Anamaria Morgan al, N Engl J Med 2014;370(14):1286- 1297) The normal value (reference range) for this assay is negative. COLOGUARD RE-SCREENING RECOMMENDATION: Periodic colorectal cancer screening is an important part of preventive healthcare for asymptomatic individuals at average risk for colorectal cancer. ??Following a negative Cologuard result, the [place] [employer] and U.S. Multi-Society Task Force screening guidelines recommend a Cologuard re-screening interval of 3 years. References: [place] [employer] Guideline for Colorectal Cancer Screening: https://www.cancer.org/cancer/ueuzj-kzeajf-oxhvfl/jjxiyvjoj-syqlgfhzv-fvlidkr/ac s-rec ommendations.html.; Kvng DK, Rose HAYNES, Alaina LangK, Colorectal Cancer Screening: Recommendations for Physicians and Patients from the U.S. Multi-Society Task Force on Colorectal Cancer Screening , Am J Gastroenterology 2017; 112:8740-4394. TEST DESCRIPTION: Composite algorithmic analysis of stool DNA-biomarkers with hemoglobin immunoassay. ?? Quantitative values of individual biomarkers are not reportable and are not associated with individual biomarker result reference ranges. Cologuard is intended for colorectal cancer screening of adults of either sex, 45 years or older, who are at average-risk for colorectal cancer (CRC). Cologuard has been approved for use by the U.S. FDA. The performance of Cologuard was established in a cross sectional study of average-risk adults aged 50-84. Cologuard performance in patients ages 45 to 49 years was estimated by sub-group analysis of near-age groups. Colonoscopies performed for a positive result may find as the most clinically significant lesion: colorectal cancer [4.0%], advanced adenoma (including sessile serrated polyps greater than or equal to 1cm diameter) [20%] or non- advanced adenoma [31%]; or no colorectal neoplasia [45%]. These estimates are derived from a prospective cross-sectional screening study of 10,000 individuals at average risk for colorectal cancer who were screened with both Cologuard and colonoscopy. (Anamaria Gonzales, N Engl J Med 2014;370(14):4597-1942.) Cologuard may produce a false negative or false positive result (no colorectal cancer or precancerous polyp present at colonoscopy follow up). A negative Cologuard test result does not guarantee the absence of CRC or advanced adenoma (pre-cancer). The current Cologuard screening interval is every 3 years. ([place] [employer] and U.S. Multi-Society Task Force). Cologuard performance data in a 10,000 patient pivotal study using colonoscopy as the reference method can be accessed at the following location: www.GetSocial.Innorange Oy/results. Additional description of the Cologuard test process, warnings and precautions can be found at www.cologuard.com. Stool specimen (specimen) 09/27/2023 8:35 AM EST 09/28/2023 3:50 PM EST Carolina Mahajan MD LAB MOLECULAR DIAGNOS TICS ORDERABLES Final Result [facility] (CLIA #:[id number]) [address] [place] [address], from Last 3 Months or Most Recently Relevant to Health Maintenance Insurance [employer] PPO Care Teams Sheet Metal Worker Helper Relationship Specialty Start Date End Date Carolina Siddiqi MD [address] [place] [phone] PCP - General Internal Medicine 07/11/23 Jolie Thompson Community Health Worker Case Management 02/14/24
--- OUTSIDE RECORDS SUMMARY | 2024-10-04 13:10 | XMS_ITS | Encounter Summary ---
Author Organization [employer] Address [address] [facility] 7t [place] [address] Care Team Providers Care Tag Meter Operator Name Role Phone Carolina Siddiqi MD Primary Care Provide r Reason for Visit * Reason Comments Med Refill Encounter Details Date Type Department Care Team ([facility] st Contact Info) Description 09/12/2024 Refill [facility] [address] [place] [address] Carolina Siddiqi MD [address] [place] [address] Type 2 diabetes mellitus with hyperglycemia, without long-term current use of insulin ([facility]) Social History Tobacco Use Types Packs/Day Years [...] your medication every day Lifestyle No Ivana Puente, PharmD Hemoglobin A1c < 7 Result Component 6.5( 2:27 PM EDT) No Ivana Puente, PharmD documented as of this encounter Visit Diagnoses Diagnosis Type 2 diabetes mellitus with hyperglycemia, without long-term current use of insulin ([facility]) documented in this encounter Additional Health Concerns Assessment Noted Time PHQ-9 Depression Total Score: 10 024 10:07 AM EDT documented as of this encounter Care Teams Tag Meter Operator Relationship Specialty Start Date End Date Carolina Siddiqi MD [address] [place] [address] PCP - General Internal Medicine 07/11/23 Jolie Thompson Community Health Worker Case Management 02/14/24 documented as of this encounter
--- OUTSIDE RECORDS SUMMARY | 2024-10-04 13:10 | XMS_ITS | Encounter Summary ---
Author Organization [employer] Address [address] [facility] 7t [place] [address] Care Team Providers Care Personal Shopper Name Role Phone Carolina Siddiqi MD Primary Care Provide r Encounter Details Date Type Department Care Team (Latest Contact Info) Description 10/01/2024 Travel Social History Tobacco Use Types Packs/Day Years [...] Blood Pressure 111/66(2024 10:08 AM EST) No Bolaske, Evona, PharmD Take your medication every day Lifestyle No Bolaske, Evona, PharmD Hemoglobin A1c < 7 Result Component 6.5( 2:27 PM EDT) No Bolaske, Evona, PharmD documented as of this encounter Visit Diagnoses Not on filedocumented in this encounter Additional Health Concerns Assessment Noted Time PHQ-9 Depression Total Score: 10 024 10:07 AM EDT documented as of this encounter Care Teams Personal Shopper Relationship Specialty Start Date End Date Carolina Siddiqi MD [address] [place] [address] PCP - General Internal Medicine 07/11/23 Jolie Thompson Community Health Worker Case Management 02/14/24 documented as of this encounter
--- OUTSIDE RECORDS SUMMARY | 2024-10-04 13:10 | XMS_ITS | Encounter Summary ---
Author Organization [employer] Address [address] [facility] 7t [place] [address] Care Team Providers Care Granulator Name Role Phone Carolina Siddiqi MD Primary Care Provide r Reason for Visit * Reason Comments Pre-visit Planning SDOH screening compl eted on 12/31/2024 Encounter Details Date Type Department Care Team ([facility] st Contact Info) Description 09/19/2024 Patient Outreach [facility] [address] [place], [place] [phone] Carolina Siddiqi MD [address] [place], [place] [phone] Pre-visit Planning (SDOH screening completed on 12/31/2024) Social History Tobacco Use Types Packs/Day Years [...] AM EDT documented as of this encounter Progress Notes * Felicitas Moreno - 09/19/2024 12:54 PM EST SABINE Polk. Placed outbound call to patient to complete pre-visit planning. No answer at this time. Patient name and were not confirmed. CC left voicemail requesting return call. Direct contact information provided. documented in this encounter Plan of Treatment Not on file documented as of this encounter Goals Goal Patient Goal Type Associated Problems Recent Progress Patient-Stated? Author Blood Pressure < 140/90 Blood Pressure 111/66(2024 10:08 AM EST) No Ivana Puente, PharmD Take your medication every day Lifestyle No RobsoneKanchanona, PharmD Hemoglobin A1c < 7 Result Component 6.5( 2:27 PM EDT) No RobsoneKanchanona, PharmD documented as of this encounter Visit Diagnoses Not on filedocumented in this encounter Additional Health Concerns Assessment Noted Time PHQ-9 Depression Total Score: 10 024 10:07 AM EDT documented as of this encounter Care Teams Granulator Relationship Specialty Start Date End Date Carolina Siddiqi MD [address] [place] [phone] PCP - General Internal Medicine 07/11/23 Jolie Thompson Community Health Worker Case Management 02/14/24 documented as of this encounter
[2024-10-04 13:36] LABS: Hematocrit 36.9 % (42.0-52.0); Mean Corpuscular HGB Conc 32.5 g/dl (31.0-36.0); Mean Corpuscular Hemoglobin 26.9 pg (27.0-33.0); Mean Corpuscular Volume 82.7 fL (80.0-98.0); Mean Platelet Volume 11.7 fL (9.4-12.4); Platelet Count 166 X10*3/uL (160-400); Red Blood Count 4.46 X10*6/uL (4.60-5.80); Red Cell Distribution Width 15.2 % (11.0-16.0); White Blood Count 5.4 X10*3/uL (4.8-10.8)
[2024-10-04 13:53] LABS: Appearance Urine Clear; Color Urine Yellow; Glucose Urine UA >=1000 mg/dL (Negative); Leukocyte Esterase Urine Negative (Negative); Nitrite Urine Negative (Negative); PH 5.5 (5.0-9.0); UMIC TRIGGER UA YES; Urine Blood Negative (Negative); Urine Ketones Negative (Negative); Urine Protein Negative (Neg-Trace)
[2024-10-04 14:04] LABS: Bacteria Urine None Seen (None Seen); Hyaline Casts Urine 0-2 /LPF (0-2); Iron 63 mcg/dL (45-160); Percent Iron Saturation 26 % (15-50); RBC Urine 0-2 /HPF (0-2); Squamous Epithelial Cell Urine 0-2 /HPF (0-2); Total Iron Binding Capacity 247 mcg/dL (228-428); Unsaturated Iron Binding 184 ug/dL; WBC Urine 0-5 /HPF (0-5)
[2024-10-04 14:20] LABS: Ferritin 165 ng/mL (20-250)
[2024-10-04 15:00] LABS: Creatinine, mg/dL 82.06; Protein mg/dL 9 mg/dL
[2024-10-04 17:27] LABS: Creatinine, 24Hr Urine 0.6 G/Day (1.0-2.0); Protein 24 Hr Urine 68 mg/Day (<150); Total Volume 24 Hour Urine 750 mL
[2024-10-04 18:38] LABS: Estimated Glomerular Filt Rate 40
[2024-10-04 19:53] LABS: Creatinine Clearance 24.8 mL/min (85-125)
[2024-10-04 20:00] LABS: Creatinine (CrCl) 1.72 mg/dL (0.5-1.4)
== END 2024-10-04 11:02 | disposition home or self-care (01) ==
LOC: HO.HHCL 11:01
PROVIDERS: Visit Provider Internal Medicine Hypertension Specialist
DX: Z13.89 Encounter for screening for other disorder (principal)
CPT/HCPCS: 36415; 81001; 82565; 82575; 82728; 83540; 84156; 85027

== ENCOUNTER 2024-10-04 11:22 | Outpatient (REF) | payer MEDICARE, SELFPAY ==
--- OUTSIDE RECORDS SUMMARY | 2024-10-04 13:30 | XMS_ITS | Encounter Summary ---
Author Organization [facility] Address [address] [facility] 7t [place] [address] Care Team Providers Care Phototypesetter Operator Name Role Phone Carolina Siddiqi MD [...] 9:46 AM EST) Triglycerides 73 <150 mg/dL [facility] Comment:Desirable Triglyceri de: less than 150 mg/dLBorderline High Triglyceride 150-199 mg/dLHigh Triglyceride: 200-499 mg/dLVery High Triglyceride: greater than or equal to 5OO mg/dL Cholesterol 113 <200 mg/dL [facility] Comment:Desirable Cholestero l: less than 200 mg/dLBorderline High Cholesterol: 200-239 mg/dLHigh Cholesterol: greater than 239 mg/dL LDL Cholesterol Calculated 47 <100 mg/dL [facility] Comment:Desirable LDL: less than 100 mg/dLNear Optimal/Above Optimal LDL: 110- 129 mg/dLBorderline High LDL: 130-159 mg/dLHigh LDL: 160-189 mg/dLVery High LDL: greater than or equal to 190 mg/dL HDL Cholesterol 52 >40 mg/dL [facility] Comment:Desirable HDL: great er than 40 mg/dL Note: This HDL assay may give artificially low results in patients with liver disease. 09/13/2024 9:46 AM EST 09/13/2024 9:46 AM EST us Generic External Data Provider LAB BLOOD ORDERAB LES Final Result Performing Organization Address [facility] [employer] de Phone Number [facility] [address] [place] [phone] * (ABNORMAL) Basic Metabolic Panel (09/13/2024 9:46 AM EST) Sodium 145 135 - 145 mmol/L [facility] Potassium 4.8 3.3 - 5.1 mmol/L [facility] Chloride 114(H) 96 - 108 mmol/L [facility] Carbon Dioxide 27 22 - 29 mmol/L [facility] Anion Gap 9(L) 12 - 20 [facility] Urea Nitrogen (BUN) 14 9 - 16 mg/dL [facility] Creatinine, Serum 1.77(H) 0.5 - 1.4 mg/dL [facility] Estimated Glomerular Filt Rate 39 [facility] Comment:Chronic Kidney Disea se: Estimated GFR < 60 mL/min/1.89w1Voflzo Kidney Disease: Estimated GFR < 15 mL/min/1.73m2 Glucose 126(H) 60 - 115 mg/dL [facility] Calcium 9.1 8.4 - 10.2 mg/dL [facility] 09/13/2024 9:46 AM EST 09/13/2024 9:46 AM EST us Generic External Data Provider LAB BLOOD ORDERAB LES Final Result Performing Organization Address [facility] [employer] de Phone Number [facility] [address] [place] [phone] documented in this encounter Visit Diagnoses Not on filedocumented in this encounter Additional Health Concerns Assessment Noted Time PHQ-9 Depression Total Score: 10 02/25/ 024 10:07 AM EDT documented as of this encounter Care Teams Phototypesetter Operator Relationship Specialty Start Date End Date Carolina Siddiqi MD [address] [place] [address] PCP - General Internal Medicine 07/11/23 Jloie Thompson Community Health Worker Case Management 02/14/24 documented as of this encounter
--- OUTSIDE RECORDS SUMMARY | 2024-10-04 13:30 | XMS_ITS | Encounter Summary ---
Author Organization [employer] Address [address] [facility] 7t [place] [address] Care Team Providers Care Oyster Shucker Name Role Phone Carolina Siddiqi MD Primary Care Provide r Reason for Visit * Reason Comments Pre-visit Planning SDOH screening compl eted on 12/31/2024 Encounter Details Date Type Department Care Team ([facility] st Contact Info) Description 09/19/2024 Patient Outreach [facility] [address] [place], [place] [phone] Carolina Siddiqi MD [address] [place], [place] [phone] Pre-visit Planning (SDOH screening completed on 12/31/2024) [...] documented as of this encounter Care Teams Oyster Shucker Relationship Specialty Start Date End Date Carolina Siddiqi MD [address] [place] [phone] PCP - General Internal Medicine 07/11/23 Jolie Thompson Community Health Worker Case Management 02/14/24 documented as of this encounter
--- OUTSIDE RECORDS SUMMARY | 2024-10-04 13:30 | XMS_ITS | Encounter Summary ---
Author Organization [employer] Address [address] [facility] 7t [place] [address] Care Team Providers Care Towel Hemmer Name Role Phone Carolina Siddiqi MD Primary Care Provide r Encounter Details Date Type Department Care Team ([facility] st Contact Info) Description 02/23/2024 Orders Only [facility] [address] [place] [address] Yeimi Saenz MD [address] [place] [address] Social History Tobacco Use Types Packs/Day Years [...] documented as of this encounter Care Teams Towel Hemmer Relationship Specialty Start Date End Date Carolina Siddiqi MD [address] [place] [address] PCP - General Internal Medicine 07/11/23 Jolie Thompson Community Health Worker Case Management 02/14/24 documented as of this encounter
--- OUTSIDE RECORDS SUMMARY | 2024-10-04 13:30 | XMS_ITS | Encounter Summary ---
Author Organization [employer] Address [address] [facility] 7t [place] [address] Care Team Providers Care Contact Lens Fitter Name Role Phone Carolina Siddiqi MD Primary Care Provide r Encounter Details Date Type Department Care Team ([facility] st Contact Info) Description 07/19/2024 Orders Only [facility] [address] [place] [address] Carolina Siddiqi MD [address] [place] [address] Social History Tobacco Use Types Packs/Day Years [...] documented as of this encounter Care Teams Contact Lens Fitter Relationship Specialty Start Date End Date Carolina Siddiqi MD [address] [place] [phone] PCP - General Internal Medicine 07/11/23 Jolie Thompson Community Health Worker Case Management 02/14/24 documented as of this encounter
--- OUTSIDE RECORDS SUMMARY | 2024-10-04 13:30 | XMS_ITS | Encounter Summary ---
Author Organization [employer] Address [address] [facility] 7t [place] [address] Care Team Providers Care Entry Level Marketing Assistant Name Role Phone Carolina Siddiqi MD Primary [...] documented as of this encounter Care Teams Entry Level Marketing Assistant Relationship Specialty Start Date End Date Carolina Siddiqi MD [address] [place] [address] PCP - General Internal Medicine 07/11/23 Jolie Thompson Community Health Worker Case Management 02/14/24 documented as of this encounter
--- OUTSIDE RECORDS SUMMARY | 2024-10-04 13:30 | XMS_ITS | Clinical Summary ---
Author Organization [employer] Address [address] [facility] [address] [place] [address] Care Team Providers Care Mosaicist Name Role Phone Carolina Siddiqi MD Primary [...] hyperglycemia, without long-term current use of insulin ([facility]) Use to test blood sugar 2 times daily 100 each 12 024 2024 Active Blood Glucose Monitoring Suppl (FreeStyle Spray Lite) w/Device kitIndications:Ty pe 2 diabetes mellitus with hyperglycemia, without long-term current use of insulin ([facility]) Use to test blood sugar 2 times daily 1 kit Active sacubitril-valsar stoddard (Entresto) 97-103 MG tabletIndications :Primary hypertension,Architectural Technologist nilam systolic congestive heart failure ([facility]) Take 1 tablet by mouth 2 times daily. 60 tablet 12 024 2024 Active TRUEplus Lancets 33G miscIndications:T ype 2 diabetes mellitus with hyperglycemia, without long-term current use of insulin ([facility]) USE DIRECTED TO TEST BLOOD SUGAR EVERY DAY 100 each 11 Active glucose blood (FREESTYLE LITE) test stripIndications: Type 2 diabetes mellitus with hyperglycemia, without long-term current use of insulin ([facility]) USE DIRECTED TO TEST BLOOD SUGAR ONCE [...] hyperglycemia, without long-term current use of insulin ([facility]) Use to test blood sugar 2 times [...] artery disease of n ative artery of [place] heart with stable angina pectoris 01/26/2024 Overview (01/26/2024): C.Cath on 12/21/23 at [facility]: Severe LAD disease + D1 stenosis--> had PCI/drug eluting stent. 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 ?? PLAN: 1. Follow up with [facility]: Not recommended for follow-up 2. Patient goal is to improve health 3. Behavioral Recommendations a. Comply with medical recommendations b. Begin incorporating healthy changes in daily life c. May utilize [facility] and/or hotline, if symptoms worsen d. May reach out to [facility] for additional support Assessment & Plan (07/11/2023 1:04 PM EDT): [facility] call counseling done, he declines for now [...] Description 10/01/2024 10:00 AM EST Office Visit [facility] [address] [place] [address] Caorlina Siddiqi MD COVID-19 (Primary Dx); Rhinitis, unspecified type; Both eyes affected by mild nonproliferative diabetic retinopathy with macular edema, associated with type 2 diabetes mellitus (CMS/HCC); Chronic systolic congestive heart failure (CMS/HCC) 10/01/2024 Travel 09/19/2024 Patient Outreach [facility] [address] [place] [address] Carolina Siddiqi MD Pre-visit Planning ([facility] screening completed on 12/31/2024) 09/13/2024 Orders Only GENERIC EXTERNAL DATA DEPARTMENT Provider, Generic External Data 09/12/2024 Refill [facility] [address] [place] [phone] Carolina Siddiqi MD Type 2 diabetes mellitus with hyperglycemia, without long-term current use of insulin ([facility]) 08/22/2024 Telephone [facility] [address] [place] [phone] Carolina Siddiqi MD 08/21/[address] [address] Heike Schaefer, RN Results 08/21/2024 Orders Only [address] [address] Carolina Siddiqi MD Cricopharyngeal achalasia (Primary Dx) 07/24/[address] [phone] Carolina Siddiqi MD 07/19/2024 Orders Only [facility] [address] [place] [phone] Carolina Siddiqi MD 07/18/2024 Refill [facility] [address] [place], [place] [phone] Carolina Siddiqi MD 07/10/[address] [phone] Carolina Siddiqi MD from Last 3 Months [...] 2:27 PM EDT) No Ivana Puente PharmD Procedures Procedure Name Priority Date/Time [...] COVID Ag Positive QC Media Lot # [id number] Lot# Expiration Date [id number] Swab 10/01/2024 10:3 4 AM EST Carolina Mahajan MD POINT OF CARE TEST EN TER/EDIT ORDERABLES Final Result * Hepatic Function Panel (09/13/2024 9:46 AM EST) Pathologist [facility] Bilirubin, Total 0.7 0.0 - 1.0 mg/dL [facility] Bilirubin, Direct 0.2 0.0 - 0.5 mg/dL [facility] Aspartate Amino Transferase 23 5 - 37 U/L [facility] Alanine Aminotransferase 19 0 - 40 U/L [facility] Total Protein 7.2 6.5 - 8.0 g/dL [facility] Albumin Level 4.1 3.5 - 5.0 g/dL [facility] Alkaline Phosphatase 92 39 - 117 U/L [facility] Blood Venous blood specimen / Unknown 09/13/2024 9:46 AM EST 09/13/2024 9:46 AM EST Carolina Mahajan MD LAB BLOOD ORDERABLES Final Result [facility] [address] [place] [phone] * Lipid Panel, Standard (09/13/2024 9:46 AM EST) Triglycerides 73 <150 mg/dL [facility] Comment:Desirable Triglyceri de: less than 150 mg/dLBorderline High Triglyceride 150-199 mg/dLHigh Triglyceride: 200-499 mg/dLVery High Triglyceride: greater than or equal to 5OO mg/dL Cholesterol 113 <200 mg/dL [facility] Comment:Desirable Cholestero l: less than 200 mg/dLBorderline High Cholesterol: 200-239 mg/dLHigh Cholesterol: greater than 239 mg/dL LDL Cholesterol Calculated 47 <100 mg/dL [facility] Comment:Desirable LDL: less than 100 mg/dLNear Optimal/Above Optimal LDL: 110- 129 mg/dLBorderline High LDL: 130-159 mg/dLHigh LDL: 160-189 mg/dLVery High LDL: greater than or equal to 190 mg/dL HDL Cholesterol 52 >40 mg/dL [facility] Comment:Desirable HDL: great er than 40 mg/dL Note: This HDL assay may give artificially low results in patients with liver disease. 09/13/2024 9:46 AM EST 09/13/2024 9:46 AM EST us Generic External Data Provider LAB BLOOD ORDERAB LES Final Result Performing Organization Address City/State/[facility] Co de Phone Number [facility] [address] [place] [phone] * (ABNORMAL) Basic Metabolic Panel (09/13/2024 9:46 AM EST) Sodium 145 135 - 145 mmol/L [facility] Potassium 4.8 3.3 - 5.1 mmol/L [facility] Chloride 114(H) 96 - 108 mmol/L [facility] Carbon Dioxide 27 22 - 29 mmol/L [facility] Anion Gap 9(L) 12 - 20 [facility] Urea Nitrogen (BUN) 14 9 - 16 mg/dL [facility] Creatinine, Serum 1.77(H) 0.5 - 1.4 mg/dL [facility] Estimated Glomerular Filt Rate 39 [facility] Comment:Chronic Kidney Disea se: Estimated GFR < 60 mL/min/[id number] Kidney Disease: Estimated GFR < 15 mL/min/1.73m2 Glucose 126(H) 60 - 115 mg/dL [facility] Calcium 9.1 8.4 - 10.2 mg/dL [facility] 09/13/2024 9:46 AM EST 09/13/2024 9:46 AM EST Generic External Data Provider LAB BLOOD ORDERAB LES Final Result [facility] [address] [place] [phone] * ECG 12 lead (08/19/2024 3:37 PM EST) Narrative Jenniffer Rousseau MD - 08/19/2024 3:37 PM EST Sinus rhythm, rate: 67bpm Left axis deviation Abnormal ECG Alexxis Gonzalez [employer] ASSOCIATE ECG ORDERABLES Final Res ult * (ABNORMAL) [...] Negative Negative 10/06/19 24 5:26 PM EST [facility] (CLIA #:[id number]) Comment: NEGATIVE TEST RESULT. A negative Cologuard [...] cancer. ??Following a negative Cologuard result, the [place] Cancer Society and U.S. Multi-Society Task Force screening guidelines recommend a Cologuard re-screening interval of 3 years. References: [place] [employer] Guideline for Colorectal Cancer Screening: https://www.cancer.org/cancer/eobdl-adoxtx-buqbhi/vywonszdx-edsxnzawl-mpyijel/ac s-rec ommendations.html.; Kvng DK, Rose HAYNES, Alaina LangK, Colorectal Cancer Screening: Recommendations for Physicians and Patients from the U.S. Multi-Society Task Force on Colorectal Cancer Screening , Am J Gastroenterology 2017; 112:0930-9610. TEST DESCRIPTION: Composite algorithmic analysis of stool [...] colonoscopy. (Anamaria Gonzales, N Engl J Med 2014;370(14):9349-7133.) Cologuard may produce a false negative or false positive result (no colorectal cancer or precancerous polyp present at colonoscopy follow up). A negative Cologuard test result does not guarantee the absence of CRC or advanced adenoma (pre-cancer). The current Cologuard screening interval is every 3 years. ([place] [employer] Society and U.S. Multi-Society Task Force). Cologuard performance data in a 10,000 patient pivotal study using colonoscopy as the reference method can be accessed at the following location: www.[employer] Logic/results. Additional description of the Cologuard test process, warnings and precautions can be found at www.cologuard.com. Stool specimen (specimen) 09/27/2023 8:35 AM EST 09/28/2023 3:50 PM EST Carolina Mahajan MD LAB MOLECULAR DIAGNOS TICS ORDERABLES Final Result [facility] (CLIA #:[id number]) [address] [place] [address], from Last 3 Months or Most Recently Relevant to Health Maintenance Insurance [employer] PPO Care Teams Mosaicist Relationship Specialty Start Date End Date Carolina Siddiqi MD [address] [place] [phone] PCP - General Internal Medicine 07/11/23 Jolie Thompson Community Health Worker Case Management 02/14/24
--- OUTSIDE RECORDS SUMMARY | 2024-10-04 13:30 | XMS_ITS | Encounter Summary ---
Author Organization [employer] Address [address] [facility] [address] [place] [address] Care Team Providers Care Mid Teacher Name Role Phone Carolina Siddiqi MD Primary Care Provide r Reason for Visit * Reason Comments Med Refill Encounter Details Date Type Department Care Team ([facility] st Contact Info) Description 09/12/2024 Refill [facility] [address] [place] [address] Carolina Siddiqi MD [address] [place] [address] Type 2 diabetes mellitus with hyperglycemia, without long-term current use of insulin ([facility]) Social History Tobacco Use Types Packs/Day Years [...] hyperglycemia, without long-term current use of insulin ([facility]) documented in this encounter Additional Health Concerns Assessment Noted Time PHQ-9 Depression Total Score: 10 024 10:07 AM EDT documented as of this encounter Care Teams Mid Teacher Relationship Specialty Start Date End Date Carolina Siddiqi MD [address] [place] [address] PCP - General Internal Medicine 07/11/23 Jolie Thompson Community Health Worker Case Management 02/14/24 documented as of this encounter
[2024-10-04 13:57] LABS: Estimated Glomerular Filt Rate 41
== END 2024-10-04 11:23 | disposition home or self-care (01) ==
LOC: HO.HHCL 11:22
PROVIDERS: Visit Provider Internal Medicine Hypertension Specialist
DX: N18.9 Chronic kidney disease, unspecified (principal); D63.1 Anemia in chronic kidney disease
CPT/HCPCS: 36415; 81001; 82565; 82575; 82728; 83540; 84156; 85027

== ENCOUNTER 2024-10-23 14:17 | Outpatient (AMB) | payer OTHER, SELFPAY ==
--- NOTE | 2024-10-23 14:18 | A.OFFVIS_ITS ---
Vital Signs 10/23/24 14:20 Height 5 ft 3 in Weight 131 lb 6.328 oz BMI 23.3 BP 128/66 Blood Pressure Location Rt brachial Position Sitting Pulse 64 Pulse Source Pulse Oximeter Pulse Oximetry (%) 100 Oxygen Delivery Method Room Air Intake Visit Reasons: 3 month follow up Intake Note: ESTABLISHED PATIENT for dysphagia + anemia mgmt. Chief Complaint; New onset x1 mos of umbilical pain, pt denies any swelling, N+V, GERD, or fecal abn. Pt denies any additional concerns. Cruise Director Required: Yes Cruise Director Services: Cruise Director Present (RENATA Cramer) Cruise Director Name: Blaine [id number] Accompanied by: Self / Same As Patient Allergies No Known Allergies Allergy (Verified 10/23/24 14:19) HPI HPI 3 month follow up: Details: LAST VISIT: Dysphagia Postprandial epigastric pain Plan Patient had modified barium swallow ordered by PCP. Unable to see reflux as this study would not showed that for us. Speech therapy notes reviewed, patient was able to swallow food with sip of water. Before taking sit patient had mild laryngeal penetration that could be from cricopharyngeal achalasia versus osteophyte. We will hold off on sending him for upper endoscopy or colonoscopy as patient is on Brilinta currently and will not be able to be off till December. We will treat him with PPI and H2 mike to see if treating his reflux will help with his symptoms of dysphagia and epigastric pain postprandially. I will see him in 3 months. Will order upper GI series with barium swallow to check for reflux, hiatal hernia, Schatzki ring, esophageal narrowing. He is agreeable to current plan of care and verbalizes understanding of instructions. He was given the opportunity to ask questions and all questions answered. ? Thank you for allowing me to participate in his care Medications New pantoprazole take one tablet half an hour before breakfast 40 mg PO DAILY 30 tabs 3RF K21.9 famotidine 20 mg PO BEDTIME 30 tabs 3RF TODAY'S VISIT Patient is is here today for follow-up. Patient reports that he no longer is having trouble swallowing, however he is having abdominal pain and burning around his umbilical area. Patient reports that the burning is still not always related to food. Patient reports bloating around that area as well feels like he has a golf ball in there. Patient started taking pantoprazole last time and famotidine and reports that he has been doing well. Some how patient has upper GI series with barium swallow was not scheduled. We will have patient be cleared by Cardiology and we will schedule him for endoscopy and possible colonoscopy. Patient denies any melena, hematochezia, unintentional weight loss or ribbon like stools. [facility] Medical History Acute HFrEF (heart failure with reduced ejection fraction) Diabetes HLD (hyperlipidemia) HTN (hypertension) Surgical History S/P cardiac catheterization S/P cardiac cath H/O heart artery stent Hx of appendectomy Social History Household Members: None Housing: Apartment Do you presently have visiting nurse or other home services: No Patient Tobacco Use Status: Tobacco use Unknown Review of Systems Const Denies weight gain and Denies weight loss ENT Reports no additional complaints, Denies dysphagia and Denies odynophagia Card Reports no additional complaints Resp Reports no additional complaints GI Reports abdominal pain (Describes burning around umbilical area), Denies belching, Denies melena, Denies bloating, Denies change in bowel habits, Denies dysphagia, Denies excessive flatus, Denies dyspepsia, Denies heartburn, Denies diarrhea, Denies loose stools, Denies nausea, Denies odynophagia and Denies vomiting Reports no additional complaints Musc Reports no additional complaints Neuro Reports no additional complaints Psych Reports no additional complaints Endo Reports no additional complaints Physical Exam Vital Signs: Last Vital Signs Pulse 64 10/23/24 14:20 BP 128/66 10/23/24 14:20 Pulse Ox 100 10/23/24 14:20 Oxygen Delivery Method Room Air 10/23/24 14:20 BMI result Body Mass Index 23.3 Const General: healthy appearing, no acute distress and well developed Nutritional Appearance: well nourished Orientation/consciousness: patient oriented x3 Resp Effort & Inspection: normal respiratory effort, able to speak in complete sentences, no tracheal deviation and symmetric chest movement Auscultation: clear to auscultation bilaterally Cardio Rate: regular rate GI Inspection: No distended and Yes visible herniation (Periumbilical area tender) Palpation (GI): Soft to palpation, not firm, nontender and No hepatosplenomegaly present Auscultation: normal bowel sounds General: Yes no CVA tenderness Back/Spine/Pelvis Back: no CVA tenderness Skin General skin exam: elasticity normal, turgor normal and dry skin Neuro General: patient oriented x3 Psych Appearance: grossly normal Mental Status: mental status grossly normal Assessment & Plan Assessment & Plan (1) Dysphagia: Code(s): R13.10 - Dysphagia, unspecified Qualifiers: Dysphagia type: pharyngoesophageal phase Qualified Code(s): R13.14 - Dysphagia, pharyngoesophageal phase (2) Postprandial epigastric pain: Code(s): R10.13 - Epigastric pain (3) GERD (gastroesophageal reflux disease): Code(s): K21.9 - Gastro-esophageal reflux disease without esophagitis Qualifiers: Esophagitis presence: esophagitis presence not specified Qualified Code(s): K21.9 - Gastro-esophageal reflux disease without esophagitis (4) Abdominal bloating: Code(s): R14.0 - Abdominal distension (gaseous) (5) Umbilical hernia: Code(s): K42.9 - Umbilical hernia without obstruction or gangrene Qualifiers: Obstruction and gangrene presence: without obstruction or gangrene Qualified Code(s): K42.9 - Umbilical hernia without obstruction or gangrene Plan Ultrasound to check for umbilical hernia, mild tenderness, periumbilical area. Patient will start taking vitamin-D. Continue taking found famotidine at bedtime and pantoprazole in the morning. Follow-up in 3 months. Patient will have cardiology appointment soon and we will be asking for risk stratification to send patient for upper endoscopy and possible colonoscopy. Patient will call our office if he will have any GI concerning symptoms. Patient is agreeable to plan of care and verbalizes understanding of instructions. He was given the opportunity to ask questions and all questions answered. Thank you for allowing me to participate in his care Orders: Orders US abdomen limited 10/24/24 K42.9 - Umbilical hernia without obstruction or gangrene, K43.9 - Ventral hernia without obstruction or gangrene Medications: New cholecalciferol (vitamin D3) 50 mcg PO DAILY 90 caps 3RF R79.89 - Other specified abnormal findings of blood chemistry Refilled pantoprazole 40 mg PO QAM 90 tabs 3RF K21.9 - Gastro-esophageal reflux disease without esophagitis famotidine 20 mg PO BEDTIME 90 tabs 3RF Coding Level of Care Code Est Pt Level 3 (29724) Diagnoses Pharyngoesophageal dysphagia R13.14 Dysphagia type: pharyngoesophageal phase Postprandial epigastric pain R10.13 Gastroesophageal reflux disease, unspecified whether esophagitis present K21.9 Esophagitis presence: esophagitis presence not specified Abdominal bloating R14.0 Umbilical hernia without obstruction and without gangrene K42.9 Obstruction and gangrene presence: without obstruction or gangrene Time Spent (min) 30 Comment 20 minutes spent with patient and additional 10 minutes spent reviewing his records
[2024-10-23 14:20] VITALS: BP 128/66; PULSE 64; O2SAT 100; BMI 23.3
--- OUTSIDE RECORDS SUMMARY | 2024-10-23 15:36 | XMS_ITS | Data Portability ---
Author Organization [facility], , [facility] Address [address] [place] [address] Care Team Providers Care Lens Shaper Grinder Name Role Phone HARRIS BASILIO Internal Medicine [phone] ERIC HELLER General Surgeon Assessment No assessment recorded. Plan of Treatment Reminders Order Date Submit Date Provider Last Modified By Organization Details Last Modified Time Details Appointments None recorded. Lab culture, urine 2015 016 [facility], [address] [place] [address], [id number], 6 04:07:56 hepatic function panel, serum - add on. 2015 016 [facility], [address] [place] [address], [id number], 6 04:08:03 Referral diabetes management referral - australian speaker with elevated blood sugar, likely needs injectables , please assist with next steps for blood glucose management. 2015 016 Not available 6 04:08:57 physical therapist referral - pt with right scapular pain and some right shoulder pain with movements. please assist with rehabilitat ion 2015 016 [facility], [address] [place] [address], [id number], 6 04:08:57 Procedures None recorded. Surgeries None recorded. Imaging None recorded. Medication Orders glipizide 10 mg tablet 2015 016 [facility] ([facility] [address] [place], [id number], 6 04:06:44 metformin 1,000 mg tablet 2015 016 [facility] ([facility]), [address] [place], [id number], 6 04:05:56 lisinopril 2.5 mg tablet 2015 016 [facility] [address] ([facility]), [address] [place], [id number], 6 04:06:25 gabapentin 300 mg capsule 2015 016 [facility] [address] ([facility]), [address] [place], [id number], 6 04:06:27 metformin ER 1,000 mg tablet,exte nded release 24hr (osmotic) 2015 016 [facility] ([facility]), [address] [place], [id number], 6 04:07:36 Patient TargetsNo targets recorded. Patient Instructions Encounter Date Encounter Id Patient Instructions Last Modified By Organization Details Last Modified Time 05/03/2016 [id number] Spent 25 minutes of [id number] time, of which greater than 50% was in counseling. After a discussion of treatment options, which included consideration of best practices and patient preferences, the above treatment plan and objectives were adopted. [email or web address] Not available 05/03/2016 23:18:31 07/04/2016 [id number] -Start testing blood sugar more often, at [...] soda, stop eating marshmallows. -Will review with Krya the cause of your stomach pain before [...] Kyra Mauro, Family Medicine, Encounter Date: 06/22/2016 australian speaker with elevate d blood sugar, likely needs injectables, please assist with next steps for blood glucose management. Referring Physician: Kyra Mauro Family Medicine, Encounter Date: 06/22/2016 Results Created Date Observation Date Name Description Value Unit Range Abnormal Flag Note LastModifiedBy Organization Detail LastModifiedTime 04/12/20 16 04/12/2016 CBC w/ auto diff WBC 5.8 K/uL 3.4-11 .2 Not Available [address], [address], 04/12/2016 01:57:38 04/12/20 16 04/12/2016 CBC w/ auto diff RBC 4.71 M/uL 4.50-5 .50 Not Available [address], [address], 04/12/2016 01:57:38 04/12/20 16 04/12/2016 CBC w/ auto diff hemoglobin 13.8 g/dL 13.0-1 7.0 Not Available [address], [address], 04/12/2016 01:57:38 04/12/20 16 04/12/2016 CBC w/ auto diff hematocrit 38.1 % 40.0-5 1.0 low Not Available [address], [address], 04/12/2016 01:57:38 04/12/20 16 04/12/2016 CBC w/ auto diff MCV 80.9 fL 79.0-9 8.0 Not Available [address], [address], 04/12/2016 01:57:38 04/12/20 16 04/12/2016 CBC w/ auto diff MCH 29.3 pg 27.0-3 4.8 Not Available [address], [address], 04/12/2016 01:57:38 04/12/20 16 04/12/2016 CBC w/ auto diff MCHC 36.2 g/dL 31.5-3 6.0 high Not Available [address], [address], 04/12/2016 01:57:38 04/12/20 16 04/12/2016 CBC w/ auto diff RDW 12.9 % 10.8-1 4.6 Not Available [address], [address], 04/12/2016 01:57:38 04/12/20 16 04/12/2016 CBC w/ auto diff MPV 10.4 fL 9.4-12 .4 Not Available [address], [address], 04/12/2016 01:57:38 04/12/20 16 04/12/2016 CBC w/ auto diff platelet count 204 K/uL 130-40 0 Not Available [address], [address], 04/12/2016 01:57:38 04/12/20 16 04/12/2016 CBC w/ auto diff neutrophils 49.9 % 45.3-7 7.7 Not Available [address], [address], 04/12/2016 01:57:38 04/12/20 16 04/12/2016 CBC w/ auto diff lymphocytes 35.0 % 12.3-3 9.7 Not Available [address], [address], 04/12/2016 01:57:38 04/12/20 16 04/12/2016 CBC w/ auto diff monocytes 10.8 % 4.1-12 .8 Not Available [address], [address], 04/12/2016 01:57:38 04/12/20 16 04/12/2016 CBC w/ auto diff eosinophils 3.80 % 0.00-7 .20 Not Available [address], [address], 04/12/2016 01:57:38 04/12/20 16 04/12/2016 CBC w/ auto diff basophils 0.30 % 0.00-2 .80 Not Available [address], [address], 04/12/2016 01:57:38 04/12/20 16 04/12/2016 CBC w/ auto diff absolute neutrophil 2.9 K/uL 1.4-7. 7 Not Available [address], [address], 04/12/2016 01:57:38 04/12/20 16 04/12/2016 CBC w/ auto diff absolute lymphocyte 2.0 K/uL 0.6-3. 2 Not Available [address], [address], 04/12/2016 01:57:38 04/12/20 16 04/12/2016 CBC w/ auto diff absolute monocytes 0.6 K/uL 0.1-0. 6 Not Available [address], [address], 04/12/2016 01:57:38 04/12/20 16 04/12/2016 CBC w/ auto diff absolute eosinophil 0.22 K/uL 0.01-0 .50 Not Available [address], [address], 04/12/2016 01:57:38 04/12/20 16 04/12/2016 CBC w/ auto diff absolute basophils 0.02 K/uL Not Available [address], [address], 04/12/2016 01:57:38 04/12/20 16 04/12/2016 CBC w/ auto diff immature granulocyte 0.20 % 0.00-0 .50 Not Available [address], [address], 04/12/2016 01:57:38 04/12/20 16 04/12/2016 CBC w/ auto diff absolute immature granulocyte 0.01 K/uL 0.00-0 .03 Not Available [address], [address], 04/12/2016 01:57:38 04/12/20 16 04/12/2016 tropo lenore T, serum troponin T <0.010 NG/mL 0.000- 0.030 Not Available [address], [address], 04/12/2016 02:21:34 04/12/20 16 04/12/2016 CMP, serum or plasm a glucose 289 mg/dL 70-99 high Not Available [address], [address], 04/12/2016 02:21:35 04/12/20 16 04/12/2016 CMP, serum or plasm a BUN 10 mg/dL 6-19 Not Available [address], [address], 04/12/2016 02:21:35 04/12/2004/12/2016 CMP, serum or plasm a creatinine 0.9 mg/dL 0.5-1. 5 Not Available [address], [address], 04/12/2016 02:21:35 04/12/20 16 04/12/2016 CMP, serum or plasm a GFR >60 mL/mi n >60 NKDEP (Alhtea onal Kidne y Disea se Educa tion Progr am) does not endor se the use of the MDRD (Pina ficat ion of Diet in Renal Disea se) equat ion for estim ating GFR in patie nts that are not betwe en the ages of 18 and 70. Not Available [address], [address], 04/12/2016 02:21:35 04/12/20 16 04/12/2016 CMP, serum or plasm a sodium 137 mEq/L 133-14 6 Not Available [address], [address], 04/12/2016 02:21:35 04/12/20 16 04/12/2016 CMP, serum or plasm a potassium 4.1 mEq/L 3.3-5. 1 Not Available [address], [address], 04/12/2016 02:21:35 04/12/20 16 04/12/2016 CMP, serum or plasm a chloride 99 mEq/L 96-108 Not Available [address], [address], 04/12/2016 02:21:35 04/12/20 16 04/12/2016 CMP, serum or plasm a CO2 26 mEq/L 21-35 Not Available [address], [address], 04/12/2016 02:21:35 04/12/20 16 04/12/2016 CMP, serum or plasm a calcium 9.4 mg/dL 8.4-10 .3 Not Available [address], [address], 04/12/2016 02:21:35 04/12/20 16 04/12/2016 CMP, serum or plasm a total bilirubin 0.6 mg/dL 0.0-1. 2 Not Available [address], [address], 04/12/2016 02:21:35 04/12/20 16 04/12/2016 CMP, serum or plasm a alkaline phosphatase 87 U/L 39-117 Not Available [address], [address], 04/12/2016 02:21:35 04/12/20 16 04/12/2016 CMP, serum or plasm a AST (SGOT) 13 U/L 0-37 Not Available [address], [address], 04/12/2016 02:21:35 04/12/2004/12/2016 CMP, serum or plasm a ALT (SGPT) 19 U/L 0-40 Not Available [address], [address], 04/12/2016 02:21:35 04/12/2004/12/2016 CMP, serum or plasm a total protein 6.9 g/dL 6.5-8. 0 Not Available [address], [address], 04/12/2016 02:21:35 04/12/20 16 04/12/2016 CMP, serum or plasm a albumin 4.0 g/dL 3.9-4. 8 Not Available [address], [address], 04/12/2016 02:21:35 04/12/2004/12/2016 CMP, serum or plasm a globulin 2.9 gm/dL 1.0-4. 8 Not Available [address], [address], 04/12/2016 02:21:35 04/12/2004/12/2016 CMP, serum or plasm a A/G ratio 1.4 gm/dL 1.0-4. 8 Not Available [address], [address], 04/12/2016 02:21:35 04/12/20 16 04/12/2016 CMP, serum or plasm a anion gap 16 mEq/L 10-20 Not Available [facility] [address] [facility], [place], [address], 04/12/2016 02:21:35 05/31/20 16 05/31/2016 POC UA glu UA 1+ abnormal Not Available [address], [address], 05/31/2016 16:34:04 05/31/20 16 05/31/2016 POC UA clarity UA Slight ly Cloudy Not Available [address], [address], 05/31/2016 16:34:04 05/31/20 16 05/31/2016 POC UA uro UA 1.0000 Not Available [address], [address], 05/31/2016 16:34:04 05/31/20 16 05/31/2016 POC UA ket UA Negati ve Not Available [address], [address], 05/31/2016 16:34:04 05/31/20 16 05/31/2016 POC UA pro UA Trace abnormal Not Available [address], [address], 05/31/2016 16:34:04 05/31/20 16 05/31/2016 POC UA nit UA Negati ve Not Available [address], [address], 05/31/2016 16:34:04 05/31/20 16 05/31/2016 POC UA neida UA Negati ve Not Available [address], [address], 05/31/2016 16:34:04 05/31/20 16 05/31/2016 POC UA pH UA 6.0000 Not Available [address], [address], 05/31/2016 16:34:04 05/31/20 16 05/31/2016 POC UA SG UA >=1.03 00 Not Available [address], [address], 05/31/2016 16:34:04 05/31/20 16 05/31/2016 POC UA color UA Dark yellow Not Available [address], [address], 05/31/2016 16:34:04 05/31/20 16 05/31/2016 POC UA blo UA Negati ve Not Available [address], [address], 05/31/2016 16:34:04 05/31/20 16 05/31/2016 POC UA lisa UA Negati ve Not Available [address], [address], 05/31/2016 16:34:04 05/31/20 16 06/02/2016 cultu re, urine culture, urine, routine CULTU RE, URINE , ROUTI NE MICRO NUMBE R: [id number] TEST STATU S: FINAL SPECI MEN SOURC E: URINE SPECI MEN QUALI TY: ADEQU ATE RESUL T: No Growt h Not Available [facility] [address] [place] [address], [address], 06/02/2016 00:43:22 06/02/20 16 06/02/2016 BMP, serum or plasm a glucose 218 mg/dL 70-100 high Not Available [address], [address], 06/02/2016 11:19:48 06/02/20 16 06/02/2016 BMP, serum or plasm a BUN 8 mg/dL 7-18 Not Available [address], [address], 06/02/2016 11:19:48 06/02/20 16 06/02/2016 BMP, serum or plasm a creatinine 0.9 mg/dL 0.8-1. 3 Not Available [address], [address], 06/02/2016 11:19:48 06/02/20 16 06/02/2016 BMP, serum or plasm a B/C 8.9 ratio Not Available [address], [address], 06/02/2016 11:19:48 06/02/20 16 06/02/2016 BMP, serum or plasm a GFR -non 92.4 mL/mi n Recom marychuy d GFR by the Natio nal Kidne y Found ation >60 mL/mi n/1.7 3m2 - Mariam l <60 mL/mi n/1.7 3m2 - Chron ic Kidne y Disea se <15 mL/mi n/1.7 3m2 - Kidne y Failu re Not Available [address], [address], 06/02/2016 11:19:48 06/02/20 16 06/02/2016 BMP, serum or plasm a GFR - if 111.9 mL/mi n For Afric an Ameri can patie nts: Resul ts Multi plied by 1.21 Not Available [address], [address], 06/02/2016 11:19:48 06/02/20 16 06/02/2016 BMP, serum or plasm a sodium 144 mmol/ L 136-14 5 Not Available [address], [address], 06/02/2016 11:19:48 06/02/20 16 06/02/2016 BMP, serum or plasm a potassium 4.5 mmol/ L 3.5-5. 1 Not Available [address], [address], 06/02/2016 11:19:48 06/02/20 16 06/02/2016 BMP, serum or plasm a chloride 105 mmol/ L 96-107 Not Available [address], [address], 06/02/2016 11:19:48 06/02/20 16 06/02/2016 BMP, serum or plasm a anion gap 10.1 5.0-15 .0 Not Available [address], [address], 06/02/2016 11:19:48 06/02/20 16 06/02/2016 BMP, serum or plasm a CO2 29 mmol/ L 21-32 Not Available [address], [address], 06/02/2016 11:19:48 06/02/20 16 06/02/2016 BMP, serum or plasm a calcium 9.3 mg/dL 8.5-10 .3 Not Available [address], [address], 06/02/2016 11:19:48 06/02/20 16 06/02/2016 lipid panel , serum cholesterol 184 mg/dL <200 mg/dl Jonathon able 200-2 39 mg/dl Borde rline High >240 mg/dl High Not Available [address], [address], 06/02/2016 11:19:49 06/02/2006/02/2016 lipid panel , serum triglyceride s 116 mg/dL <150 mg/dL Mariam l 150-1 99 mg/dL Borde rline High 200-4 99 mg/dL High >500 mg/dL Very High Not Available [address], [address], 06/02/2016 11:19:49 06/02/2006/02/2016 lipid panel , serum direct HDL 45 mg/dL Not Available [address], [address], 06/02/2016 11:19:49 06/02/20 16 06/02/2016 LDL, calcu [...] r is not sergocristel arash. Not Available [address], [address], 06/02/2016 11:19:49 06/02/20 16 06/02/2016 HbA1c (hemo globi n A1c), blood hemoglobin A1C 7.7 % 4.8-6. 0 high Goal: <7% in Patie nts with Diabe brisa Not Available [address], [address], 06/02/2016 11:26:54 06/02/20 16 06/02/2016 HbA1c (hemo globi n A1c), blood estimated average glucose 174.3 mg/dL Not Available [address], [address], 06/02/2016 11:26:54 06/02/20 16 06/02/2016 micro album in, urine microalbumin 19.7 mg/L 1.3-20 .0 Not Available [address], [address], 06/02/2016 12:41:00 06/02/20 16 06/02/2016 micro album in, urine creatinine urine 201.4 mg/dL 30.0-1 25.0 high Not Available [address], [address], 06/02/2016 12:41:00 06/02/20 16 06/02/2016 micro album in, urine microalb/cre at ratio 9.8 mg/g_ creat 0.0-29 .0 Not Available [address], [place], [address], 06/02/2016 12:41:00 03/08/20 17 03/08/2017 urina lysis , refle x cultu re color Yellow Not Available [address], [address], 03/08/2017 21:57:08 03/08/20 17 03/08/2017 urina lysis , refle x cultu re appearance Clear Not Available [address], [address], 03/08/2017 21:57:08 03/08/20 17 03/08/2017 urina lysis , refle x cultu re specific gravity <=1.00 5 1.005- 1.030 Not Available [address], [address], 03/08/2017 21:57:08 03/08/20 17 03/08/2017 urina lysis , refle x cultu re pH 6.0 5.0-7. 0 Not Available [address], [address], 03/08/2017 21:57:08 03/08/20 17 03/08/2017 urina lysis , refle x cultu re protein Negati ve negati ve Not Available [address], [address], 03/08/2017 21:57:08 03/08/20 17 03/08/2017 urina lysis , refle x cultu re glucose 3+ negati ve abnormal Not Available [address], [address], 03/08/2017 21:57:08 03/08/20 17 03/08/2017 urina lysis , refle x cultu re ketones Negati ve negati ve Not Available [address], [address], 03/08/2017 21:57:08 03/08/20 17 03/08/2017 urina lysis , refle x cultu re bilirubin Negati ve negati ve Not Available [address], [address], 03/08/2017 21:57:08 03/08/20 17 03/08/2017 urina lysis , refle x cultu re blood Negati ve negati ve Not Available [address], [address], 03/08/2017 21:57:08 03/08/20 17 03/08/2017 urina lysis , refle x cultu re nitrite Negati ve negati ve Not Available [address], [address], 03/08/2017 21:57:08 03/08/20 17 03/08/2017 urina lysis , refle x cultu re leukocyte esterase Negati ve negati ve Not Available [address], [address], 03/08/2017 21:57:08 03/08/20 17 03/08/2017 CBC w/ auto diff WBC 5.6 K/uL 3.4-11 .2 Not Available [address], [address], 03/08/2017 21:57:30 03/08/20 17 03/08/2017 CBC w/ auto diff RBC 4.86 M/uL 4.50-5 .50 Not Available [address], [address], 03/08/2017 21:57:30 03/08/20 17 03/08/2017 CBC w/ auto diff hemoglobin 14.0 g/dL 13.0-1 7.0 Not Available [address], [address], 03/08/2017 21:57:30 03/08/20 17 03/08/2017 CBC w/ auto diff hematocrit 38.7 % 40.0-5 1.0 low Not Available [address], [address], 03/08/2017 21:57:30 03/08/20 17 03/08/2017 CBC w/ auto diff MCV 79.6 fL 79.0-9 8.0 Not Available [address], [address], 03/08/2017 21:57:30 03/08/20 17 03/08/2017 CBC w/ auto diff MCH 28.8 pg 27.0-3 4.8 Not Available [address], [address], 03/08/2017 21:57:30 03/08/20 17 03/08/2017 CBC w/ auto diff MCHC 36.2 g/dL 31.5-3 6.0 high Not Available [address], [address], 03/08/2017 21:57:30 03/08/20 17 03/08/2017 CBC w/ auto diff RDW 12.9 % 10.8-1 4.6 Not Available [address], [address], 03/08/2017 21:57:30 03/08/20 17 03/08/2017 CBC w/ auto diff MPV 10.8 fL 9.4-12 .4 Not Available [address], [address], 03/08/2017 21:57:30 03/08/20 17 03/08/2017 CBC w/ auto diff platelet count 207 K/uL 130-40 0 Not Available [address], [address], 03/08/2017 21:57:30 03/08/20 17 03/08/2017 CBC w/ auto diff neutrophils 50.8 % 45.3-7 7.7 Not Available [address], [address], 03/08/2017 21:57:30 03/08/20 17 03/08/2017 CBC w/ auto diff lymphocytes 32.9 % 12.3-3 9.7 Not Available [address], [address], 03/08/2017 21:57:30 03/08/20 17 03/08/2017 CBC w/ auto diff monocytes 13.2 % 4.1-12 .8 high Not Available [address], [address], 03/08/2017 21:57:30 03/08/20 17 03/08/2017 CBC w/ auto diff eosinophils 2.70 % 0.00-7 .20 Not Available [address], [address], 03/08/2017 21:57:30 03/08/20 17 03/08/2017 CBC w/ auto diff basophils 0.20 % 0.00-2 .80 Not Available [address], [address], 03/08/2017 21:57:30 03/08/20 17 03/08/2017 CBC w/ auto diff absolute neutrophil 2.9 K/uL 1.4-7. 7 Not Available [address], [address], 03/08/2017 21:57:30 03/08/20 17 03/08/2017 CBC w/ auto diff absolute lymphocyte 1.8 K/uL 0.6-3. 2 Not Available [address], [address], 03/08/2017 21:57:30 03/08/20 17 03/08/2017 CBC w/ auto diff absolute monocytes 0.7 K/uL 0.1-0. 6 high Not Available [address], [address]47, 03/08/2017 21:57:30 03/08/20 17 03/08/2017 CBC w/ auto diff absolute eosinophil 0.15 K/uL 0.01-0 .50 Not Available [address], [address], 03/08/2017 21:57:30 03/08/20 17 03/08/2017 CBC w/ auto diff absolute basophils 0.01 K/uL Not Available [address], [address], 03/08/2017 21:57:30 03/08/20 17 03/08/2017 CBC w/ auto diff immature granulocyte 0.20 % 0.00-0 .50 Not Available [address], [address], 03/08/2017 21:57:30 03/08/20 17 03/08/2017 CBC w/ auto diff absolute immature granulocyte 0.01 K/uL 0.00-0 .03 Not Available [address], [address], 03/08/2017 21:57:30 03/08/20 17 03/08/2017 CMP, serum or plasm a glucose 499 mg/dL 70-99 high Not Available [address], [address], 03/08/2017 22:21:58 03/08/20 17 03/08/2017 CMP, serum or plasm a BUN 6 mg/dL 6-19 Not Available [address], [address], 03/08/2017 22:21:58 03/08/20 17 03/08/2017 CMP, serum or plasm a creatinine 1.1 mg/dL 0.5-1. 5 Not Available [address], [address], 03/08/2017 22:21:58 03/08/20 17 03/08/2017 CMP, serum [...] ages of 18 and 70. Not Available [address], [address], 03/08/2017 22:21:58 03/08/2003/08/2017 CMP, serum or plasm a sodium 136 mEq/L 133-14 6 Not Available [address], [address], 03/08/2017 22:21:58 03/08/20 17 03/08/2017 CMP, serum or plasm a potassium 4.2 mEq/L 3.3-5. 2 Not Available [address], [address]96, 03/08/2017 22:21:58 03/08/2003/08/2017 CMP, serum or plasm a chloride 98 mEq/L 96-108 Not Available [address], [address], 03/08/2017 22:21:58 03/08/2003/08/2017 CMP, serum or plasm a CO2 27 mEq/L 21-35 Not Available [address], [address], 03/08/2017 22:21:58 03/08/2003/08/2017 CMP, serum or plasm a calcium 9.4 mg/dL 8.4-10 .3 Not Available [address], [address], 03/08/2017 22:21:58 03/08/2003/08/2017 CMP, serum or plasm a total bilirubin 0.4 mg/dL 0.0-1. 2 Not Available [address], [address], 03/08/2017 22:21:58 03/08/2003/08/2017 CMP, serum or plasm a alkaline phosphatase 115 U/L 39-117 Not Available [address], [address], 03/08/2017 22:21:58 03/08/20 17 03/08/2017 CMP, serum or plasm a AST (SGOT) 11 U/L 0-37 Not Available [address], [address], 03/08/2017 22:21:58 03/08/20 17 03/08/2017 CMP, serum or plasm a ALT (SGPT) 14 U/L 0-40 Not Available [address], [address], 03/08/2017 22:21:58 03/08/20 17 03/08/2017 CMP, serum or plasm a total protein 7.4 g/dL 6.5-8. 0 Not Available [address], [address], 03/08/2017 22:21:58 03/08/20 17 03/08/2017 CMP, serum or plasm a albumin 4.1 g/dL 3.9-4. 8 Not Available [address], [address]69, 03/08/2017 22:21:58 03/08/20 17 03/08/2017 CMP, serum or plasm a globulin 3.3 gm/dL 1.0-4. 8 Not Available [address], [address], 03/08/2017 22:21:58 03/08/20 17 03/08/2017 CMP, serum or plasm a A/G ratio 1.2 gm/dL 1.0-4. 8 Not Available [address], [address], 03/08/2017 22:21:58 03/08/20 17 03/08/2017 CMP, serum or plasm a anion gap 15 mEq/L 10-20 Not Available [address], [address], 03/08/2017 22:21:58 03/08/20 17 03/08/2017 C react alfreda prote in, QN, serum or plasm a C-reactive protein 0.24 mg/dL 0.00-0 .50 Not Available [address], [address], 03/08/2017 22:21:58 03/08/20 17 03/08/2017 lipas e, serum or plasm a lipase 37 U/L 16-63 Not Available [address], [address], 03/08/2017 22:21:59 10/16/19 18 10/16/2017 urina lysis , refle x cultu re color Yellow yellow Not Available [facility] [address] [place] [address], [address], 10/16/2017 15:03:07 10/16/19 18 10/16/2017 urina lysis , refle x cultu re clarity Clear Not Available [facility] [address] [place] [address], [address], 10/16/2017 15:03:07 10/16/19 18 10/16/2017 urina lysis , refle x cultu re glucose 3+ negati ve abnormal Not Available [facility] [address] [place] [address], [address], 10/16/2017 15:03:07 10/16/19 18 10/16/2017 urina lysis , refle x cultu re bili Negati ve negati ve Not Available [facility] [address] [place] [address], [address], 10/16/2017 15:03:07 10/16/19 18 10/16/2017 urina lysis , refle x cultu re ketones Negati ve negati ve Not Available [facility] [address] [place], [address], 10/16/2017 15:03:07 10/16/19 18 10/16/2017 urina lysis , refle x cultu re specific gravity 1.010 1.005- 1.030 Not Available [facility] [address] [place], [address], 10/16/2017 15:03:07 10/16/19 18 10/16/2017 urina lysis , refle x cultu re blood Negati ve negati ve Not Available [facility] [address] [place], [address], 10/16/2017 15:03:07 10/16/19 18 10/16/2017 urina lysis , refle x cultu re pH 5.5 5.0-8. 0 Not Available [facility] [address] [place], [address], 10/16/2017 15:03:07 10/16/19 18 10/16/2017 urina lysis , refle x cultu re protein Negati ve negati ve Not Available [facility] [address] [place], [address], 10/16/2017 15:03:07 10/16/19 18 10/16/2017 urina lysis , refle x cultu re nitrite Negati ve negati ve Not Available [facility] [address] [place], [address], 10/16/2017 15:03:07 10/16/19 18 10/16/2017 urina lysis , refle x cultu re leukocyte esterase, ur Negati ve negati ve Not Available [facility] [address] [place], [address], 10/16/2017 15:03:07 10/16/19 18 10/16/2017 CBC w/ auto diff WBC 5.58 K/uL 3.40-1 1.20 Not Available [facility] [address] [place], [address], 10/16/2017 16:30:11 10/16/19 18 10/16/2017 CBC w/ auto diff RBC 4.75 M/uL 4.50-5 .50 Not Available [facility] (Outpatient) [address] [place], [address], 10/16/2017 16:30:11 10/16/19 18 10/16/2017 CBC w/ auto diff HGB 13.7 g/dL 13.0-1 7.0 Not Available [facility] (Outpatient) [address] [place], [address], 10/16/2017 16:30:11 10/16/19 18 10/16/2017 CBC w/ auto diff HCT 39.0 % 40.0-5 1.0 low Not Available [facility] (Outpatient) [address] [place], [address], 10/16/2017 16:30:11 10/16/19 18 10/16/2017 CBC w/ auto diff plt 218 K/uL 130-40 0 Not Available [facility] (Outpatient) [address] [place], [address], 10/16/2017 16:30:11 10/16/19 18 10/16/2017 CBC w/ auto diff MCV 82.1 fL 79.0-9 8.0 Not Available [facility] (Outpatient) [address] [place], [address], 10/16/2017 16:30:11 10/16/19 18 10/16/2017 CBC w/ auto diff MCH 28.8 pg 27.0-3 4.8 Not Available [facility] (Out[facility] [address] [place], [address], 10/16/2017 16:30:11 10/16/19 18 10/16/2017 CBC w/ auto diff MCHC 35.1 g/dL 31.5-3 6.0 Not Available [facility] ([facility] [address] [place], [address], 10/16/2017 16:30:11 10/16/19 18 10/16/2017 CBC w/ auto diff RDW 12.8 % 10.8-1 4.6 Not Available [facility] [address] [place], [address], 10/16/2017 16:30:11 10/16/19 18 10/16/2017 CBC w/ auto diff MPV 10.9 fL 9.4-12 .4 Not Available [facility] ([facility] [address] [place], [address], 10/16/2017 16:30:11 10/16/19 18 10/16/2017 CBC w/ auto diff NRBC 0.00 /100_ WBCs Not Available [facility] [address] [place], [address], 10/16/2017 16:30:11 10/16/19 18 10/16/2017 CBC w/ auto diff absolute NRBC 0.00 K/uL Not Available [facility] [address] [place], [address], 10/16/2017 16:30:11 10/16/19 18 10/16/2017 CBC w/ auto diff diff method Auto Not Available [facility] [address] [place], [address], 10/16/2017 16:30:11 10/16/19 18 10/16/2017 CBC w/ auto diff neuts 54.2 % 45.30- 77.70 Not Available [facility] [address] [place], [address], 10/16/2017 16:30:11 10/16/19 18 10/16/2017 CBC w/ auto diff lymphs 32.1 % 12.30- 39.70 Not Available [facility] [address] [place], [address], 10/16/2017 16:30:11 10/16/19 18 10/16/2017 CBC w/ auto diff monos 10.4 % 4.10-1 2.80 Not Available [facility] [address] [place] [address], [address], 10/16/2017 16:30:11 10/16/19 18 10/16/2017 CBC w/ auto diff eos 2.7 % 0-7.2 Not Available [facility] [address] [place] [address], [address], 10/16/2017 16:30:11 10/16/19 18 10/16/2017 CBC w/ auto diff basos 0.4 % 0-2.80 Not Available [facility] [address] [place], [address], 10/16/2017 16:30:11 10/16/19 18 10/16/2017 CBC w/ auto diff granulocytes , immature (%) 0.2 % 0.0-0. 9 Not Available [facility] [address] [place] [address], [address], 10/16/2017 16:30:11 10/16/19 18 10/16/2017 CBC w/ auto diff absolute neuts 3.03 K/uL 1.40-7 .70 Not Available [facility] [address] [place], [address], 10/16/2017 16:30:11 10/16/19 18 10/16/2017 CBC w/ auto diff absolute lymphs 1.79 K/uL 0.60-3 .20 Not Available [facility] [address] [place] [address], [address], 10/16/2017 16:30:11 10/16/19 18 10/16/2017 CBC w/ auto diff absolute monos 0.58 K/uL 0.11-0 .59 Not Available [facility] [address] [place], [address], 10/16/2017 16:30:11 10/16/19 18 10/16/2017 CBC w/ auto diff absolute eos 0.15 K/uL 0.01-0 .50 Not Available [facility] ([facility] [address] [place], [address], 10/16/2017 16:30:11 10/16/19 18 10/16/2017 CBC w/ auto diff absolute basos 0.02 K/uL 0.00-0 .08 Not Available [facility] [address] [place], [address], 10/16/2017 16:30:11 10/16/19 18 10/16/2017 CBC w/ auto diff granulocytes , immature 0.01 K/uL 0.00-0 .05 Not Available [facility] [address] [place], [address], 10/16/2017 16:30:11 10/16/19 18 10/16/2017 BMP, blood sodium 142 mmol/ L 133-14 6 Not Available [facility] [address] [place], [address], 10/16/2017 16:53:22 10/16/19 18 10/16/2017 BMP, blood chloride 105 mmol/ L 96-108 Not Available [facility] [address] [place], [address], 10/16/2017 16:53:22 10/16/19 18 10/16/2017 BMP, blood potassium 4.7 mmol/ L 3.3-5. 1 Not Available [facility] [address] [place], [address], 10/16/2017 16:53:22 10/16/19 18 10/16/2017 BMP, blood CO2 29 mmol/ L 21-35 Not Available [facility] [address] [place] [address], [address], 10/16/2017 16:53:22 10/16/19 18 10/16/2017 BMP, blood BUN 6 mg/dL 6-19 Not Available [facility] [address] [place] [address], [address], 10/16/2017 16:53:22 10/16/19 18 10/16/2017 BMP, blood creatinine 0.90 mg/dL 0.5-1. 5 Not Available [facility] [address] [place] [address], [address], 10/16/2017 16:53:22 10/16/19 18 10/16/2017 BMP, blood glucose 229 mg/dL 70-99 high Not Available [facility] [address] [place] [address], [address], 10/16/2017 16:53:22 10/16/19 18 10/16/2017 BMP, blood calcium 9.6 mg/dL 8.4-10 .3 Not Available [facility] [address] [place] [address], [address], 10/16/2017 16:53:22 10/16/19 18 10/16/2017 BMP, blood eGFR >60 mL/mi n/1.7 3m2 >60 Abnor mal if <60. If patie nt is Afric an-Am kwabena n, multi ply the resul t by 1.21. Not Available [facility] [address] [place] [address], [address], 10/16/2017 16:53:22 10/16/19 18 10/16/2017 BMP, blood anion gap 13 mmol/ L 10-20 Not Available [facility] [address] [place] [address], [address], 10/16/2017 16:53:22 10/16/19 18 10/16/2017 lipas e, serum or plasm a lipase 25 U/L 16-63 Not Available [facility] [address] [place], [address], 10/16/2017 16:53:24 10/16/19 18 10/16/2017 lfts (hepa tic panel ) alkaline phosphatase 98 U/L 39-117 Not Available [facility] (Out[facility]) [address] [place], [address], 10/16/2017 16:53:26 10/16/19 18 10/16/2017 lfts (hepa tic panel ) total bilirubin 0.5 mg/dL 0-1.2 Not Available [facility] [address] [place] [address], [address], 10/16/2017 16:53:26 10/16/19 18 10/16/2017 lfts (hepa tic panel ) direct bilirubin <0.2 mg/dL 0-0.3 Not Available [facility] [address] [place], [address], 10/16/2017 16:53:26 10/16/19 18 10/16/2017 lfts (hepa tic panel ) bilirubin (indirect) NOT CALCUL ATED mg/dL 0-1.5 Not Available [facility] [address] [place] [address], [address], 10/16/2017 16:53:26 10/16/19 18 10/16/2017 lfts (hepa tic panel ) AST 14 U/L 0-37 Not Available [facility] [address] [place] [address], [address], 10/16/2017 16:53:26 10/16/19 18 10/16/2017 lfts (hepa tic panel ) ALT 16 U/L 0-40 Not Available [facility] [address] [place], [address], 10/16/2017 16:53:26 10/16/19 18 10/16/2017 lfts (hepa tic panel ) total protein 7.4 g/dL 6.5-8. 0 Not Available [facility] [address] [place], [address], 10/16/2017 16:53:26 10/16/19 18 10/16/2017 lfts (hepa tic panel ) albumin 4.3 g/dL 3.9-4. 8 Not Available [facility] [address] [place], [address], 10/16/2017 16:53:26 10/16/19 18 10/16/2017 lfts (hepa tic panel ) globulin 3.1 g/dL 1-4.8 Not Available [facility] [address] [place], [address], 10/16/2017 16:53:26 10/16/19 18 10/16/2017 lfts (hepa tic panel ) A/G ratio 1.39 ratio 1.00-4 .80 Not Available [facility] [address] [place], [address], 10/16/2017 16:53:26 04/12/20 16 04/12/2016 XR, chest , 2 view No observ ation record ed. sbrulotte [facility] [address] [place], [address], 04/18/2016 07:51:26 06/16/20 16 04/12/2016 chest 2 V HISTOR Y: As above. COMPAR AMRYCARMEN: None. CHEST RADIOG RAPH FINDIN GS: 2 [...] DORIAN MON MD 2015 06:35 AM mmastroberti [facility] [address] [facility], [place], [address], 06/17/2016 10:45:13 03/09/20 17 03/09/2017 CT, abdom [...] . Initia l report render ed by [facility]. POS - CDHRAD BOARDW S7 Electr onical ly Signed by: MO CERON on 017 10:12 AM Techno logist : NINI MONICA, KEVIN Transc ribed by: Yuli allen, PS360 Result s 2016 10:04 AM Electr onical ly Signed By: MO CERON MD 2016 10:12 AM [facility] [address] [place] [address], [address], 03/13/2017 13:11:35 10/17/19 18 10/16/2017 xr abdom [...] P.S. LQP X 7 MONTHS ROBLES ISAAC [facility] [address] [place], [address], 10/17/2017 08:11:32 Result Notes None recorded. Problems Name Problem SNOMED Code Status Onset Date Resolution Date Notes Provider Name and Address Organization Details Recorded Time Essential hypertensio n 38521850 Completed 01/20/2016 Robles Isaac MD [address] [place], [place] [address], [address], [facility] [place] 6 23:10:47 Diabetes mellitus 88257163 Completed 01/20/2016 Robles Isaac MD [address] [place], [place] [address], [address], [facility] [place] 6 23:10:50 Skin lesion 20476400 Completed 01/20/2016 Robles hendrickson MD [address] [place], [place] [address], [address], [facility] [place] 6 23:10:54 Benign essential hypertensio n 1817920 Active Robles Isaac MD [address] [place], [place] [address], [address], [facility] [place] 6 08:53:56 Mixed hyperlipide muna 907124884 Active Robles Isaac MD [address] [place], [place] [address], [address], [facility] [place] 6 08:53:56 Uncontrolle d type 2 diabetes mellitus 026834580 Active Robles Isaac MD [address] [place], [place] [address], [address], [facility] [place] 6 08:53:56 Problem Notes None recorded. Procedures Surgical History Date Name Laterality Status Provider Name and Address Organization Details Recorded Time 6 POC Urinalysis Testing completed [facility] 05/31/2016 16:24:56 4 Excision completed Robles Isaac MD [address] [place], [place] [address], [address], [facility] [place] 10/15/2013 11:15:56 Imaging Results Imaging Date Name Status LastModified by Organiz ation Details LastModified Time 04/12/2016 XR, chest, 2 view completed [facility] [address] , [place], [address], 04/18/2016 07:51:26 04/12/2016 chest 2 V completed mmastroberti [facility] [address] [place], [address], 06/17/2016 10:45:13 03/09/2017 CT, abdomen + pelvis, w/o contrast completed [facility] [address] [place], [address], 03/13/2017 13:11:35 10/16/2017 xr abdomen series supine with decubitis/ere ct and single view chest completed [facility] [address] [place], [address], 10/17/2017 08:11:32 Procedure Notes None recorded. Medical [...] Available Not Available No t Available [employer] [place] Lite kit active Not Available Not Available Not Available Vitals Date Recorded Body height Body weight Body mass index (BMI) Systolic blood pressure Diastolic blood pressure Provider Name and Address Organization Details Last Updated DateTime 05/03/2016 158.115 cm 50841.45 g 27.4 kg/m2 144 mm[Hg] 74 mm[Hg] Alessandra Orellana MA [facility] 6 08:30:54 Date Recorded Body height Heart rate Oxygen saturation Oxygen saturation in Arterial blood by Pulse oximetry Systolic blood pressure Diastolic blood pressure Provider Name and Address Organization Details Last Updated DateTime 6 158.115 cm 85 /min 98 % 98 % 142 mm[Hg] 88 mm[Hg] [facility] 6 16:06:44 Date Recorded Body height Systolic blood pressure Diastolic blood pressure Provider Name and Address Organization Details Last Updated DateTime 06/06/2016 158.115 cm 142 mm[Hg] 72 mm[Hg] [facility] 06/06/2016 09:58:35 Date Recorded Body height Body weight Body mass index (BMI) Systolic blood pressure Diastolic blood pressure Provider Name and Address Organization Details Last Updated DateTime 06/22/2016 158.115 cm 04417.26 g 27.3 kg/m2 150 mm[Hg] 80 mm[Hg] [facility] 6 11:20:12 Social History Question Answer Notes LastModified by Organizat ion Details LastModified Time Tobacco Smoking Status Never Smoker Alessandra Orellana MA [facility] 10/02/2013 10:35:52 What Is Your Level [...] 10/02/2013 What Is Your Occupation? Works At [employer] Information not available 10/02/2013 How Many Days In The Past Year Have You Had A Heavy Drinking Consumption (4+ Female, 5+ Male)? 0 Information not available 11/25/2015 Are There Any Guns Present In Your Home? No Information not available 10/02/2013 Live Alone Or With Others? With Others Information not available 10/02/2013 Patient Has Health [...] - Information not available 07/04/2016 Marital Status [facility] Info rmation not available 10/02/2013 How Many Children Do You Have? 5 Information not available 10/02/2013 Seat Belts Used Routinely Yes [facility] Information not available 10/02/2013 Smoke Alarm In Home Yes [facility] Information not available 10/02/2013 How Much Tobacco Do You Smoke? No [facility] Information not available 12/14/2015 General Stress Level [...] you have difficulty dressing or bathing? No [facility] Information not available 10/02/2013 Mental Status Question Answer Note LastModified by Organizat ion Details LastModified Time Do you have difficulty concentrating, remembering or making decisions? Yes [facility] Information n ot available 10/02/2013 Family History [...] Recorded Time Tdap 4 completed Not Available [facility] 09/28/2019 02:16:08 Influenza, split virus, quadrivalent, PF 4 completed Not Available [facility] 09/28/2019 02:18:56 pneumococcal polysaccharide PPV23 4 completed Not Available [facility] 09/28/2019 02:14:36 Influenza, split virus, trivalent, PF 4 completed Not Available [facility] 09/28/2019 02:19:21 Influenza, split virus, quadrivalent, PF 6 completed Not Available [facility] 09/28/2019 02:33:00 Past Encounters Encounter ID Performer Location Encounter Start Date Encounter Closed Date Diagnosis/Indication Diagnosis SNOMED-CT Code Diagnosis ICD10 Code Diagnosis Note [id number] [facility], OFFICE [address] [place] [address] 10/02/2013 10:13:34 10/02/2013 11:26:17 Essential hypertension 24537148 Elevated BP. Previously not engaged in care. Low salt diet recommende d. Start Chlorthali done. Will add SHUN-I once renal function establishe d. Follow up in 1 week. Advised to get fasting labwork tomorrow. Diabetes mellitus 47382493 Patient with new-onset diabetes. Symptoms of polydipsia [...] week. Screening for malignant neoplasm of colon 454012060 Skin lesion 76554288 Inv olving the left posterior upper arm. Likely epidermoid cyst. Schedule for an excision. No clinical evidence of cellulitis or acute abscess. Influenza vaccine needed [id number] Administra tion of diphtheria, pertussis, and tetanus vaccine [id number] TINO Mendoza, [facility], OFFICE [address] [place] [address] 10/09/2013 09:59:46 10/09/2013 13:05:30 Essential hypertension 85855631 Previously not engaged in care. Tolerating Chlorthali done. BP improved. Low salt diet recommende d. Will add Lisinopril 2.5mg po daily. Repeat BMP at his next visit. Diabetes mellitus 49068783 Patient with new-onset diabetes. Symptoms of polydipsia [...] start SHUN-I. Follow up in 1 week. [id number] TINO Mendoza, [facility], OFF[address] [place] [address] 10/15/2013 10:06:38 10/15/2013 13:08:04 Diabetes mellitus 74661322 Patient with new-onset diabetes. Symptoms of polydipsia [...] in 1 week. Epidermoid cyst of skin 680560038 Non-infect ed, left upper arm cyst removed [...] week for wound check and suture removal. [id number] Robles Isaac MD , [facility], [address] [place] [address] 10/23/2013 14:35:31 10/23/2013 15:12:07 Chest pain 16860237 His symptoms of left-sided chest pain and [...] s for UC/ER use discussed. Skin lesion 03057472 Inv olving the left posterior upper arm. Sutures removed. Hypertroph ic scar and contact dermatitis noted. Purulent discharge expressed with suture removal. Wound care discussed. Gauze applied. Follow up early next week for a follow up. Consider General Surgery referral if not healed completely . [id number] TINO Mendoza, [facility], [address] [place] [address] 10/30/2013 08:21:52 10/30/2013 08:54:16 Essential hypertension 26848883 Previously was not engaged in care. Tolerating Chlorthali done and Lisinopril . BP markedly improved. Low salt diet recommende d. Check BMP at his next visit. Diabetes mellitus 81402638 Patient with new-onset diabetes. Symptoms of polydipsia [...] ratio. SHUN-I started previously . Skin lesion 24694462 Inv olving the left posterior upper arm. Sutures removed last week. Hypertroph ic scar and contact dermatitis noted at the time. Now healing well. No fluctuance . Consider General Surgery referral if not healed completely . Chest pain 74356777 His symptoms of left-sided chest , SOB [...] symptoms. Indication s for UC/ER use discussed. [id number] TINO Stanley, [facility], [address] [place] [address] 11/27/2013 09:03:19 11/27/2013 09:47:48 Diabetes mellitus 65262198 Patient with recent diagnosis of diabetes. Symptoms [...] elevated MA/Cr ratio. SHUN-I started. Essential hypertension 14012295 Previously was not engaged in care. Tolerating Chlorthali done. Erroneousl y stopped Lisinopril . Will resume. No intoleranc e issues. BP markedly improved. Low salt diet recommende d. Epidermoid cyst of skin 038214727 Non-infect ed, left upper arm cyst removed at his previous visit due to persistent pain. Patient with residual scarring. No current evidence of infection. [id number] Xigurwinder Watkins , [facility], [address] [place] [address] 02/19/2014 11:04:44 02/19/2014 12:04:40 Adult health examination 325710328 See Risk Assessment and Lifestyle Change Counseling section above. Tdap vaccine UTD. PNA vaccine administer ed today. Home/vehic le/sexual safety reviewed. Not sexually active. Colonoscop y scheduled 03/2014. Counseling [id number] Benign ess ential hypertension 9544180 Previously was not engaged in care. Tolerating Chlorthali done and Lisinopril . BP markedly improved. Low salt diet recommende d. Mixed hyperlipidemia 492056826 Fair FLP with LDL 92. Would like better control given his underlying diabetes, but also struggles with polypharma cy. Low fat/choles terol diet and exercise recommende d. Diarrhea 24974053 Patien t with chronic diarrhea intermitte ntly. Recently evaluated by Dr. Basilio (GI). Scheduled to have a colonoscop y in 03/2014. Recent IgA mildly positive (other celiac markers negative). No BRBPR/boris na. No abdominal pain. Uncontroll ed type 2 diabetes mellitus 079566183 States home BS 140-200. Improved Hgb A1c [...] hydration discussed. Administra tion of pneumococcal vaccine [id number] Robles Isaac MD [facility], [address] [place] [address] 04/09/2014 07:59:46 04/09/2014 08:49:22 Uncontrolled type 2 diabetes mellitus 753133596 States home BS 120-150. Overall improved Hgb [...] discussed. Ample oral hydration discussed. Essential hypertension 79534148 Previously was not engaged in care. Tolerating Chlorthali done. Erroneousl y stopped Lisinopril . Will resume. No intoleranc e issues. BP markedly improved. Will titrate up Lisinopril as needed. Low salt diet clayton carmen [id number] [facility], [address] [place] [address] 07/07/2014 07:47:01 07/07/2014 08:23:26 Mixed hyperlipidemia 658622375 Patient with LDL of 150 (06/2014). However, his 10-year risk of ME is 7%. New AHA/ACC guideline discussed. Advised on low fat/choles terol diet and exercise. Influenza vaccine needed [id number] Uncontroll ed type 2 diabetes mellitus 808591189 States home BS 100-160. Overall improved Hgb [...] discussed. Ample oral hydration discussed. Essential hypertension 65643519 Previously was not engaged in care. Tolerating Chlorthali done and Lisinopril . No intoleranc e issues. BP markedly improved. Low salt diet recommende d. [id number] MD GISSELL Huizar, [facility], [address] [place] [address] 11/25/2015 08:22:18 11/25/2015 09:20:28 Benign essential hypertension 0562710 I10 Blood pressure elevated. Lost insurance in 2013. Has been off his medication s. No CP/SOB/CUEVAS . Recommende d to continue to work on diet, exercise, and lowering salt intake. Will resume Lisinopril (but will hold off on Chlorthali done). Check BMP. Mixed hyperlipidemia 267 259602 E78.2 Patient with previous LDL of 150 (06/2014). However, his 10-year risk of ME is 7%. New AHA/ACC guideline discussed. Advised on low fat/choles terol diet and exercise. Uncontrol ed type 2 diabetes mellitus 688325277 E11.65 Out of care for over 1 [...] oral hydration discussed. Unexplaine d weight loss 654253352 R63.4 Patient with 15 lbs weight loss since his last visit. Denies bleeding. Out of medication for over 1 year. Will continue to monitor. [id number] Robles Isaac MD , [facility], [address] [place] [address] 12/14/2015 10:17:02 12/15/2015 08:21:49 Benign essential hypertension 5448300 I10 Blood pressure improved. Lost insurance in 2013. Was off his medication s. No CP/SOB/CUEVAS . Recommende d to continue to work on diet, exercise, and lowering salt intake. Recently started Lisinopril (but will hold off on Chlorthali done). Mixed hyperlipidemia 267 670043 E78.2 Patient with previous LDL of 150 (06/2014). However, his 10-year risk of ME is 7%. New AHA/ACC guideline discussed. Advised on low fat/choles terol diet and exercise. Uncontroll ed type 2 diabetes mellitus 141750827 E11.65 Out of care for over 1 [...] medication s discussed. Ample oral hydration discussed. [id number] Robles Isaac MD , [facility], [address] [place] [address] 01/11/2016 08:21:26 01/11/2016 08:52:49 Benign essential hypertension 5524971 I10 Blood pressure elevated, but previously well [...] if persistent ly elevated. Mixed hyperlipidemia 267 782370 E78.2 Patient with previous LDL of 150 (06/2014). However, his 10-year risk of ME is 7%. New AHA/ACC guideline discussed. Advised on low fat/choles terol diet and exercise. Uncontroll ed type 2 diabetes mellitus 835569422 E11.65 Out of care for over 1 [...] hydration discussed. Right uppe r quadrant pain 882232979 R10.11 Patient with 1-week duration of RUQ abdominal pain. No clinical evidence of acute abdomen. Will check US to further evaluate. Advised to avoid high fat diet. Indication s for UC/ER use reviewed. [id number] Robles Isaac MD , [facility], [address] [place] [address] 01/20/2016 08:45:30 01/20/2016 09:28:43 Cholelithiasis without obstruction 92759956 K80.20 Patient with 1-week duration of RUQ abdominal pain. No clinical evidence of acute abdomen. Abdominal US revealed gallstones . Will refer to General Surgery for further evaluation . Advised to avoid high fat diet. Indication s for UC/ER use reviewed. Benign ess ential hypertension 5188714 I10 Blood pressure improved overall. Lost insurance in 2013. Was off his medication s. No CP/SOB/CUEVAS . Recommende d to continue to work on diet, exercise, and lowering salt intake. Recently started Lisinopril (but will hold off on Chlorthali done). Mixed hyperlipidemia 267 488968 E78.2 Patient with previous LDL of 150 (06/2014). However, his calculated 10-year risk of ME is 7%. New AHA/ACC guideline discussed. Advised on low fat/choles terol diet and exercise. Uncontroll ed type 2 diabetes mellitus 809287698 E11.65 Out of care for over 1 [...] medication s discussed. Ample oral hydration discussed. [id number] Robles Isaac MD , [facility], [address] [place] [address] 05/03/2016 08:21:49 05/03/2016 08:48:10 Neuropathy 625006804 G62.9 Patient reports bilateral inner thigh numbness and tingling. No weakness. No urine incontinen ce symptoms. Trial of Gabapentin discussed. Uncontroll ed type 2 diabetes mellitus 773241895 E11.65 Recently increased the Glipizide dose. Previously [...] oral hydration discussed. Benign ess ential hypertension [id number] I10 Blood pressure improved overall. Lost insurance in 2013. Was off his medication s. No CP/SOB/CUEVAS . Recommende d to continue to work on diet, exercise, and lowering salt intake. Recently started Lisinopril (but will hold off on Chlorthali done). [id number] PRABHU Mauricio-CALEB , [facility], OFFICE [address] [place] [address] 05/31/2016 15:55:20 05/31/2016 16:50:42 Active or passive immunization [id number] Z23 Diarrhea [id number] R19.7 possibly secondary to surgery, poor historian, symptoms worsening in last 2 weeks. labs as ordered below. advised follow up within 4-7 days. Dysuria [id number] R30.0 UA labs consistent with poorly controlled DM. culture pending. follow up with PCP, if symptoms worsen be seen. Uncontroll ed type 2 diabetes mellitus [id number] E11.65 reviewed importance of blood sugar control. pt to follow up with pcp. [id number] , [facility], OFF[address] [place] [address] 06/06/2016 09:54:11 06/06/2016 10:24:25 Diarrhea [id number] R19.7 possible s/e of metformin, change ir to ER, follow up in 2 weeks. Uncontroll ed type 2 diabetes mellitus [id number] E11.65 possible metformin contributi ng to diarrhea, change to ER. monitor diarrhea, follow up in 2 weeks for disease management re diarrhea and blood sugar. Shoulder pain [id number] M 25.512 subscapula r pain consistent with muscle strain. continue with supportive measures. [id number] Kyra Mauro, [employer] DYEING MACHINE TENDER-[facility], OFFICE [address] [place] [address] 06/22/2016 11:10:57 06/24/2016 09:39:47 Shoulder joint pain [id number] M25.519 right sub scapular muscle spasm, pt notes weakness in right shoulder suggestive of rotator cuff involvemen t, but no focal weakness on exam , muscle tension noted. refer for PT, apply heat, follow up for failure to resolve. Diabetes mellitus [id number] E11.9 fasting sugar elevated, referral to DNE consider victoza or insulin. [id number] Julieta Barrett RN, BSN, [facility] DM Education , [facility] [address] [place] [address] 07/04/2016 07:51:58 07/08/2016 09:50:09 Uncontrolled type 2 diabetes mellitus [id number] E11.65 Met with Greg today for Type 2 diabetes, kindly referred by Kyra Mauro, STEPHANIE. Greg is accompanie d by his daughter, who helps to translate for him. He is Comoran speaking. His daughter reports she lives with [...] soda, and eating a whole bag of marshmallo ws at night, therefore, we discussed the [...] Delong Member ID Guarantor Name 05/03/2016 1 [facility] - DIRECT CONNECTORCARE TYPE II (HMO) Greg Land [id number] Greg Emery 05/31/2016 1 [facility] - DIRECT CONNECTORCARE TYPE II (HMO) Greg Land [id number] 1 Gregnicho Land 06/06/2016 1 [facility] - DIRECT CONNECTORCARE TYPE II (HMO) Greg Land [id number] 1 [facility] 06/22/2016 1 [facility] - DIRECT CONNECTORCARE TYPE II (HMO) Greg Land [id number] 1 [facility] 07/04/2016 1 [facility] - DIRECT CONNECTORCARE TYPE II (HMO) Gregnicho Enriquezo [id number] 1 [facility] Notes Date Note Type Note Provider [...] undergone laparoscopic cholecystectomy in 02/2016. Went to [facility] 3 weeks ago due to CP. His CXR, CBC, Troponin and CMP all within normal, except for elevated BS. No recurring symptoms since. Robles Isaac MD [address] [place] [address], [phone], [facility] 05/03/2016 23:18:53 05/31/2016 text/html pt presents with [...] since procedure. diarrhea worse. no fever. Kyra Mauro [address], [phone], [facility] 06/05/2016 16:26:27 06/06/2016 text/html back pain, start [...] may be related to metformin. Kyra Mauro, [address], [phone], [facility] 06/06/2016 10:22:13 06/22/2016 text/html pt has pain in b ack to front around shoulder pain is interfering with ability to sleep.pain lasts all day.feels as if the shoulder falls asleep and drops. Kyra Mauro [address], [address], [facility] 06/22/2016 11:34:50 07/04/2016 text/html Diabetes Self Management History & IntakeReported bypatient.Patient HistoryPatient chief complaint today:Needs help interpreting blood sugars; has a family history of diabetes; Completed Diabetes Self-Assessment Form received, reviewed and sent for chart upload. Present at Visit:lpta (language)Comoran; patient's child (Daughter helped interpret appt.) Recent [...] Pt. Intake Form) Julieta Barrett RN, BSN, [address], [phone], [facility] 07/04/2016 16:03:29
--- OUTSIDE RECORDS SUMMARY | 2024-10-23 15:37 | XMS_ITS | Encounter Summary ---
Author Organization [employer] Address [address] [facility] [address]t [place] [address] Care Team Providers Care Wood Craftsman Name Role Phone Carolina Siddiqi MD Primary Care Provide r Encounter Details Date Type Department Care Team ([facility] st Contact Info) Description 02/23/2024 Orders Only [facility] MEDICINE [address] [place] [address] Yeimi Saenz MD [address] [place] [address] Social History Tobacco Use Types Packs/Day Years [...] as of this encounter Plan of Treatment Upcoming Encounters Date Type Department Care Team (Late st Contact Info) Description 12/10/2024 9:15 AM EDT Office Visit [facility] MEDICINE [address] [place] [phone] Carolina Siddiqi MD [address] [place] [phone] documented as of this encounter Visit Diagnoses Not on filedocumented in this encounter Additional Health Concerns Assessment Noted Time PHQ-9 Depression Total Score: 23 023 10:38 AM EDT documented as of this encounter Care Teams Wood Craftsman Relationship Specialty Start Date End Date Carolina Siddiqi MD [address] [place] [phone] PCP - General Internal Medicine 07/11/23 Jolie Thompson Community Health Worker Case Management 02/14/24 documented as of this encounter
--- OUTSIDE RECORDS SUMMARY | 2024-10-23 15:37 | XMS_ITS | Encounter Summary ---
Author Organization [employer] Address [address] [facility] 7t [place] [address] Care Team Providers Care Behavioral Therapy Coordinator Name Role Phone Carolina Siddiqi MD Primary Care Provide r Encounter Details Date Type Department Care Team ([facility] st Contact Info) Description 07/19/2024 Orders Only [facility] MEDICINE [address] [place] [address] Carolina Siddiqi MD [address] [place] [address] Social History Tobacco Use Types Packs/Day Years [...] Description 12/10/2024 9:15 AM EDT Office Visit [facility] MEDICINE [address] [place] [phone] Carolina Siddiqi MD [address] [place] [address] documented as of this encounter Goals Goal Patient Goal Type Associated Problems Recent Progress Patient-Stated? Author Blood Pressure < 140/90 Blood Pressure 111/66(2024 10:08 AM EST) No Bolaske, Evona, PharmD Take your medication every day Lifestyle No Bolaske, Evona, PharmD Hemoglobin A1c < 7 Result Component 6.5( 4 2:27 PM EDT) No Nancyaske, Evona, PharmD documented as of this encounter Visit Diagnoses Not on filedocumented in this encounter Additional Health Concerns Assessment Noted Time PHQ-9 Depression Total Score: 10 024 10:07 AM EDT documented as of this encounter Care Teams Behavioral Therapy Coordinator Relationship Specialty Start Date End Date Carolina Siddiqi MD [address] [place] [phone] PCP - General Internal Medicine 07/11/23 Jolie Thompson Community Health Worker Case Management 02/14/24 documented as of this encounter
--- OUTSIDE RECORDS SUMMARY | 2024-10-23 15:37 | XMS_ITS | Clinical Summary ---
Author Organization [employer] Address [address] [facility] 7t [place] [address] Care Team Providers Care Data Communications Engineer Name Role Phone Carolina Siddiqi MD Primary [...] above >140/90 on home monitor. 1 each 06/05/20 23 Active aspirin 81 MG EC tablet Take 1 tablet by mouth Once per day. 12/22/19 24 Active atorvastatin (Lipitor) 80 MG tablet Take 1 tablet by mouth at bedtime. Active Brilinta 90 MG tablet Take 1 tablet by mouth 2 times daily. Active dapagliflozin (Farxiga) 10 MG Take 1 tablet (10 mg) by mouth Once per day. 30 tablet 2 01/26/20 24 Active metoprolol succinate XL (Toprol-XL) 50 MG 24 hr tablet Take 1 tablet (50 mg) by mouth Once per day. 90 tablet 3 01/26/20 24 025 Active lidocaine (Lidoderm) 5 % patch APPLY 1 PATCH TOPICALLY TO SKIN, LEAVE ON FOR 12 HOURS AND OFF FOR 12 HOURS DIRECTED FOR 28 DAYS 01/24/20 24 Active clotrimazole (Lotrimin) 1 % cream APPLY TOPICALLY TO THE AFFECTED AREA(S) OF THE SKIN AND TOENAILS EVERY DAY DIRECTED FOR 12 WEEKS 01/24/20 24 Active famotidine (Pepcid) 20 MG tabletIndications: Gastroesophageal reflux disease, unspecified whether esophagitis present Take 1 tablet (20 mg) by mouth Once per day. 30 tablet 11 04/03/20 24 025 Active ondansetron ODT (Zofran-ODT) 8 MG disintegrating tabletIndications: Gastroesophageal reflux disease, unspecified whether esophagitis present,Nausea DISSOLVE 1 TABLET ENCIMA DE LENGUA EVERY 8 HOURS NEEDED FOR NAUSEA FOR UP TO 7 DAYS 20 tablet 04/09/20 24 Active FREESTYLE LITE test stripIndications:T ype 2 diabetes mellitus with hyperglycemia, without long-term current use of insulin ([facility]) Use to test blood sugar 2 times daily 100 each 12 06/10/20 24 025 Active Blood Glucose Monitoring Suppl (FreeStyle [place] Lite) w/Device kitIndications:Typ e 2 diabetes mellitus with hyperglycemia, without long-term current use of insulin ([facility]) Use to test blood sugar 2 times daily 1 kit 06/10/20 24 Active sacubitril-valsart an (Entresto) 97-103 MG tabletIndications: Primary hypertension,Chron ic systolic congestive heart failure ([facility]) Take 1 tablet by mouth 2 times daily. 60 tablet 12 07/01/20 24 025 Active TRUEplus Lancets 33G miscIndications:Ty pe 2 diabetes mellitus with hyperglycemia, without long-term current use of insulin ([facility]) USE DIRECTED TO TEST BLOOD SUGAR EVERY DAY 100 each 11 07/03/20 24 Active glucose blood (FREESTYLE LITE) test stripIndications:T ype 2 diabetes mellitus with hyperglycemia, without long-term current use of insulin ([facility]) USE DIRECTED TO TEST BLOOD SUGAR ONCE DAILY 100 each 11 07/03/20 24 Active Trulicity 0.75 MG/0.5ML solution auto-injector Inject 0.75 mg as directed 1 (one) time per week. 07/02/20 24 Active OneTouch Delica Lancets 33G misc Use to check BS twice daily as directed 100 each 07/19/20 24 Active Blood Glucose Monitoring Suppl (ONE TOUCH ULTRA 2) w/Device kit Use to check BS twice daily as directed 1 kit 07/19/20 Active glucose blood (OneTouch Ultra Test) test strip Use to check BS twice daily as directed 100 each 12 07/19/20 24 025 Active Alcohol Swabs (Alcohol Prep) 70 % padsIndications:Ty pe 2 diabetes mellitus with hyperglycemia, without long-term current use of insulin ([facility]) USE DIRECTED TO TEST BLOOD SUGAR TWICE DAILY 100 each 3 09/12/19 25 Active fluticasone (Flonase) 50 MCG/ACT nasal sprayIndications:R lambertonitis, unspecified type Administer 1-2 sprays into each nostril Once per day. Shake gently. Before first use, prime pump. After use, clean tip and replace cap. 16 g 10/01/19 25 026 Active acetaminophen (Tylenol Extra Strength) 500 MG tabletIndications: COVID-19 Take 2 tablets (1,000 mg) by mouth every 8 (eight) hours if needed for mild pain, moderate pain, headaches or fever for up to 10 days. 30 tablet 10/01/19 25 025 Active Problems Problem Noted Date Diagnosed Date [...] artery disease of n ative artery of [place] heart with stable angina pectoris 01/26/2024 Overview (01/26/2024): C.[place] on 12/21/23 at [facility]: Severe LAD disease + D1 stenosis--> had PCI/drug eluting stent. Also showed 60 % stenosis in mid RCA + Severe diffuse disease in the left PDA--> med management Assessment & Plan (02/26/2024 12:16 PM EDT): C.Cath on 12/21/23 at [facility]: Severe LAD disease + D1 stenosis--> had [...] in the context of medical issues, early jail, adjusting to living alone and language barrier. [...] stage. ?? PLAN: 1. Follow up with [facility]: Not recommended for follow-up 2. Patient goal is to improve health 3. Behavioral Recommendations a. Comply with medical recommendations b. Begin incorporating healthy changes in daily life c. May utilize [facility] and/or hotline, if symptoms worsen d. May reach out to [facility] for additional support Assessment & Plan (07/11/2023 1:04 PM EDT): [facility] call counseling done, he declines for now [...] Description 10/01/2024 10:00 AM EST Office Visit [facility] [address] [place] [phone] Carolina Siddiqi MD COVID-19 (Primary Dx); Rhinitis, unspecified type; Both eyes affected by mild nonproliferative diabetic retinopathy with macular edema, associated with type 2 diabetes mellitus (CMS/HCC); Chronic systolic congestive heart failure (CMS/HCC) 10/01/2024 Travel 09/19/2024 Patient Outreach [facility] [address] [place] [address] Carolina Siddiqi MD Pre-visit Planning (SDOH screening completed on 12/31/2024) 09/13/2024 Orders Only GENERIC EXTERNAL DATA DEPARTMENT Provider, Generic External Data 09/12/2024 Refill [facility] [address] [facility] [place] [address] Carolina Siddiqi MD Type 2 diabetes mellitus with hyperglycemia, without long-term current use of insulin ([facility]) 08/22/2024 Telephone [facility] [address] [place] [address] Carolina Siddiqi MD 08/21/2024 Telephone [facility] [address] [place] [address] Heike Schaefer, RN Results 08/21/2024 Orders Only [facility] [address] [place], [place] [phone] Carolina Siddiqi MD Cricopharyngeal achalasia (Primary Dx) 07/24/2024 Telephone [facility] [address] [place], [place] [phone] Carolina Siddiqi MD from Last 3 Months [...] 07/03/2024 11:19 AM EDT Plan of Treatment Upcoming Encounters Date Type Department Care Team (Late st Contact Info) Description 12/10/2024 9:15 AM EDT Office Visit [facility] [address] [place], [place] [phone] Carolina Siddiqi MD [address] [place], [place] [phone] Health Maintenance Due Date Last Done Comments [...] history exists Depression Screening 02/25/2025 02/26/2024, 02/26/20 24 Alcohol/Substance Use Screening 07/01/2025 07/01/2024 Tobacco Screening 07/03/2025 07/03/2024 Lipid Panel 09/13/2025 09/13/2024, 06/26/2024 SDOH Screening 10/01/2025 10/01/2024 Colorectal Cancer Screening 09/27/2026 FIT DNA/Cologuard 09/27/2026 09/27/2023 RSV Patients and Patients Aged 60 years or older Completed 01/26/2024 Influenza Vaccine Completed 06/17/2024, , 07/07/2014, Additional history exists Zoster Vaccines Completed 06/17/2024, 01/26/2024 Pneumococcal Vaccine: 50+ Years Completed 07/01/2024, 02/19/2014 HIB Vaccines Aged [...] long-term current use of insulin ([facility]) LAB COLOGUARD?? COLON CANCER SCREEN Routine 09/27/2023 8:35 AM EST Colon cancer screening from Last 3 Months or Most Recently Relevant to Health Maintenance Results * (ABNORMAL) POCT Rapid Covid-19 BinaxNOW (10/01/2024 10:34 AM EST) [facility] Rapid COVID Ag Positive QC Media Lot # [id number] Lot# Expiration Date [id number] Swab 10/01/2024 10:3 4 AM EST us Carolina Mahajan MD POINT OF CARE TEST EN TER/EDIT ORDERABLES Final Result * Hepatic Function Panel (09/13/2024 9:46 AM EST) Bilirubin, Total 0.7 0.0 - 1.0 mg/dL [facility] Bilirubin, Direct 0.2 0.0 - 0.5 mg/dL [facility] Aspartate Amino Transferase 23 5 - 37 U/L [facility] Alanine Aminotransferase 19 0 - 40 U/L [facility] Total Protein 7.2 6.5 - 8.0 g/dL [facility] Albumin Level 4.1 3.5 - 5.0 g/dL [facility] Alkaline Phosphatase 92 39 - 117 U/L [facility] Blood Venous blood specimen / Unknown 09/13/2024 9:46 AM EST 09/13/2024 9:46 AM EST us Carolina Mahajan MD LAB BLOOD ORDERABLES Final Result [facility] [address] [place] [phone] * Lipid Panel, Standard (09/13/2024 9:46 AM EST) Triglycerides 73 <150 mg/dL [facility] Comment:Desirable Triglyceri de: less than 150 mg/dLBorderline High Triglyceride 150-199 mg/dLHigh Triglyceride: 200-499 mg/dLVery High Triglyceride: greater than or equal to 5OO mg/dL Cholesterol 113 <200 mg/dL [facility] Comment:Desirable Cholestero l: less than 200 mg/dLBorderline High Cholesterol: 200-239 mg/dLHigh Cholesterol: greater than 239 mg/dL LDL Cholesterol Calculated 47 <100 mg/dL [facility] Comment:Desirable LDL: less than 100 mg/dLNear Optimal/Above Optimal LDL: 110- 129 mg/dLBorderline High LDL: 130-159 mg/dLHigh LDL: 160-189 mg/dLVery High LDL: greater than or equal to 190 mg/dL HDL Cholesterol 52 >40 mg/dL [facility] Comment:Desirable HDL: great er than 40 mg/dL Note: This HDL assay may give artificially low results in patients with liver disease. 09/13/2024 9:46 AM EST 09/13/2024 9:46 AM EST us Generic External Data Provider LAB BLOOD ORDERAB LES Final Result Performing Organization Address City/[facility]/ZIP Co de Phone Number [facility] [address] [place] [address] [phone] * (ABNORMAL) Basic Metabolic Panel (09/13/2024 9:46 AM EST) Sodium 145 135 - 145 mmol/L [facility] Potassium 4.8 3.3 - 5.1 mmol/L [facility] Chloride 114(H) 96 - 108 mmol/L [facility] Carbon Dioxide 27 22 - 29 mmol/L [facility] Anion Gap 9(L) 12 - 20 [facility] Urea Nitrogen (BUN) 14 9 - 16 mg/dL [facility] Creatinine, Serum 1.77(H) 0.5 - 1.4 mg/dL [facility] Estimated Glomerular Filt Rate 39 [facility] Comment:Chronic Kidney Disea se: Estimated GFR < 60 mL/min/1.30c3Hyzxfo Kidney Disease: Estimated GFR < 15 mL/min/1.73m2 Glucose 126(H) 60 - 115 mg/dL [facility] Calcium 9.1 8.4 - 10.2 mg/dL [facility] 09/13/2024 9:46 AM EST 09/13/2024 9:46 AM EST us Generic External Data Provider LAB BLOOD ORDERAB LES Final Result Performing Organization Address City/[facility]/ZIP Co de Phone Number [facility] [address] [place] [phone] * ECG 12 lead (08/19/2024 3:37 PM EST) Narrative Jenniffer Rousseau MD - 08/19/2024 3:37 PM EST Sinus rhythm, rate: 67bpm Left axis deviation Abnormal ECG [facility] ECG ORDERABLES Final Res ult * (ABNORMAL) POCT HGB A1C (07/01/2024 2:27 PM EDT) Hemoglobin A1C 6.5(A) 4.0 - 6.0 % QC Media Lot # [id number] Lot# Expiration Date [id number] Blood 07/01/2024 2:27 PM EDT Carolina Mahajan MD POINT OF CARE TEST EN TER/EDIT ORDERABLES Final Result * Cologuard?? colon cancer screening (09/27/2023 8:35 AM EST) Cologuard Result Negative Negative 10/06/19 5:26 PM EST [facility] (CLIA #:[id number]) Comment: NEGATIVE TEST RESULT. A negative Cologuard [...] cancer. ??Following a negative Cologuard result, the [place] [employer] and U.S. Multi-Society Task Force screening guidelines recommend a Cologuard re-screening interval of 3 years. References: [place] [employer] Guideline for Colorectal Cancer Screening: https://www.cancer.org/cancer/cfwdz-mtsmky-qrkbti/skyxlnoyj-radpwptye-fyncqej/ac s-rec ommendations.html.; Kvng DK, Rose CR, Alaina LangK, Colorectal Cancer Screening: Recommendations for Physicians and Patients from the U.S. Multi-Society Task Force on Colorectal Cancer Screening , Am J Gastroenterology 2017; 112:2097-8672. TEST DESCRIPTION: Composite algorithmic analysis of stool [...] (Anamaria Morgan al, N Engl J Med 2014;370(14):6719-9197.) Cologuard may produce a false negative or false positive result (no colorectal cancer or precancerous polyp present at colonoscopy follow up). A negative Cologuard test result does not guarantee the absence of CRC or advanced adenoma (pre-cancer). The current Cologuard screening interval is every 3 years. ([place] [employer] and U.S. Multi-Society Task Force). Cologuard performance data in a 10,000 patient pivotal study using colonoscopy as the reference method can be accessed at the following location: www.[facility]/results. Additional description of the Cologuard test process, warnings and precautions can be found at www.col[facility]ue [facility].com. Stool specimen (specimen) 09/27/2023 8:35 AM EST 09/28/2023 3:50 PM EST Carolina Mahajan MD LAB MOLECULAR DIAGNOS TICS ORDERABLES Final Result [facility] (CLIA #:[id number]) Sharon Haddad [place] [address], from Last 3 Months or Most Recently Relevant to Health Maintenance Insurance [employer] PPO Care Teams Data Communications Engineer Relationship Specialty Start Date End Date Carolina Siddiqi MD [address] [place] [phone] PCP - General Internal Medicine 07/11/23 Jolie Thompson Community Health Worker Case Management 02/14/24
--- OUTSIDE RECORDS SUMMARY | 2024-10-23 15:37 | XMS_ITS | Encounter Summary ---
Author Organization [employer] Address [address] [facility] 7t [place] [address] Care Team Providers Care Configuration Management Analyst Name Role Phone Carolina Siddiqi MD Primary Care Provide r Reason for Visit * Reason Comments chronic conditions Encounter Details Date Type Department Care Team (Latest Contact Info) Description 10/01/2024 10:00 AM EST Office Visit [facility] MED[facility]INE [address] [place] [address] Carolina Siddiqi MD [address] [place], [place] [phone] COVID-19 (Primary Dx); Rhinitis, unspecified type; Both [...] hyperglycemia, without long-term current use of insulin ([facility]) HTN (hypertension) Bilateral hearing loss Depressive state Loneliness Colon cancer screening Unstable gait Verruca Onycholysis Coronary artery disease of [place] artery of [place] heart with stable angina pectoris ([facility]) Acute systolic congestive heart failure ([facility]) Chronic systolic congestive heart failure ([facility]) GERD (gastroesophageal reflux disease) Dysphagia Nausea Skin lesion History of cardiac catheterization Ischemic cardiomyopathy NSTEMI (non-ST elevated myocardial infarction) ([facility]) Acute HFrEF (heart failure with reduced ejection fraction) ([facility]) Encounter for preventive care Chronic pain of right knee Cricopharyngeal achalasia COVID-19 Rhinitis Both eyes affected by mild nonproliferative diabetic retinopathy with macular edema, associated with type 2 diabetes mellitus ([facility]) No family history on file. Review of [...] at bedtime. Blood Glucose Monitoring Suppl (FreeStyle [place] Lite) w/Device kit Use to test blood [...] documented in this encounter Plan of Treatment Upcoming Encounters Date Type Department Care Team (Late st Contact Info) Description 12/10/2024 9:15 AM EDT Office Visit [facility] [address] [place] [address] Carolina Siddiqi MD [address] [place] [address] documented as of this encounter Goals Goal Patient Goal Type Associated Problems Recent Progress Patient-Stated? Author Blood Pressure < 140/90 Blood Pressure 111/66(2024 10:08 AM EST) No Ivana Puente, PharmD Take your medication every day Lifestyle No RobsoneIvana, PharmD Hemoglobin A1c < 7 Result Component 6.5( 2:27 PM EDT) No Robsone, Ivana, PharmD documented as of this encounter Procedures Procedure Name Priority Date/Time Associated Diagnosis Comments POCT RAPID COVID ANTIGEN Routine 10/01/2024 10:34 AM EST COVID-19 documented in this encounter Results * (ABNORMAL) POCT Rapid Covid-19 BinaxNOW (10/01/2024 10:34 AM EST) [facility] Signature Rapid COVID Ag Positive QC Media Lot # [id number] Lot# Expiration Date [id number] Swab 10/01/2024 10:3 4 AM EST Carolina [...] Noted Time PHQ-9 Depression Total Score: 10 02/25/2 024 10:07 AM EDT documented as of this encounter Care Teams Configuration Management Analyst Relationship Specialty Start Date End Date Carolina iSddiqi MD [address] [place] [address] PCP - General Internal Medicine 07/11/23 Jolie Thompson Community Health Worker Case Management 02/14/24 documented as of this encounter
--- OUTSIDE RECORDS SUMMARY | 2024-10-23 15:37 | XMS_ITS | Encounter Summary ---
Author Organization [employer] Address [address] [facility] 7t [place] [address] Care Team Providers Care Reimbursement Rep Name Role Phone Carolina Siddiqi MD Primary [...] Description 12/10/2024 9:15 AM EDT Office Visit [facility] MEDICINE [address] [place], [place] [phone] Carolina Siddiqi MD [address] [place] [address] documented as of this encounter Goals Goal Patient Goal Type Associated Problems Recent Progress Patient-Stated? Author Blood Pressure < 140/90 Blood Pressure 111/66(2024 10:08 AM EST) No Robsone, Kanchanona, PharmD Take your medication every day Lifestyle No Bolaske, Evona, PharmD Hemoglobin A1c < 7 Result Component 6.5( 2:27 PM EDT) No Bolanthonye, Evona, PharmD documented as of this encounter Visit Diagnoses Not on filedocumented in this encounter Additional Health Concerns Assessment Noted Time PHQ-9 Depression Total Score: 10 024 10:07 AM EDT documented as of this encounter Care Teams Reimbursement Rep Relationship Specialty Start Date End Date Carolina Siddiqi MD [address] [place], [place] [phone] PCP - General Internal Medicine 07/11/23 Jolie Thompson Community Health Worker Case Management 02/14/24 documented as of this encounter
== END 2024-10-23 14:48 | disposition home or self-care (01) ==
PROVIDERS: PCP Nurse Practitioner Family; Visit Provider Nurse Practitioner Family
DX: R13.14 Dysphagia, pharyngoesophageal phase (principal); R10.13 Epigastric pain; K21.9 Gastro-esophageal reflux disease without esophagitis; R14.0 Abdominal distension (gaseous); K42.9 Umbilical hernia without obstruction or gangrene
CPT/HCPCS: 99213

== ENCOUNTER → 2024-10-23 14:17 | Outpatient (BNVA) | payer OTHER, SELFPAY | PROVIDERS: PCP Nurse Practitioner Family; Visit Provider Nurse Practitioner Family | DX: K21.9 Gastro-esophageal reflux disease without esophagitis (principal); K42.9 Umbilical hernia without obstruction or gangrene; R13.14 Dysphagia, pharyngoesophageal phase; R10.13 Epigastric pain; R14.0 Abdominal distension (gaseous) | CPT/HCPCS: 99212 ==

== ENCOUNTER 2024-10-24 09:30 | Outpatient (REF) | payer OTHER, SELFPAY ==
--- NOTE | ~2024-10-24 | US_ITS ---
CLINICAL HISTORY: K42.9 - Umbilical hernia without obstruction or gangrene US abdomen limited Comparison: None Findings: The ventral abdominal wall were scanned. There is no focal abdominal wall defect or hernia. There are no cystic or solid masses and no pathological appearing lymph nodes. IMPRESSION: Unremarkable limited abdominal ultrasound. This document has been electronically signed by: Jorge Salter MD on 10/25/2024 06:12:47
--- OUTSIDE RECORDS SUMMARY | 2024-10-24 10:00 | XMS_ITS | Encounter Summary ---
Author Organization [employer] Address [address] [facility] 7t [place] [address] Care Team Providers Care Professional Skateboarder Name Role Phone Carolina Siddiqi MD Primary Care Provide r Encounter Details Date Type Department Care Team ([facility] st Contact Info) Description 07/19/2024 Orders Only [facility] MEDICINE [address] [place] [address] Carolina Siddiqi MD [address] [place] [address] Social History Tobacco Use Types Packs/Day Years [...] Description 12/10/2024 9:15 AM EDT Office Visit [facility] MEDICINE [address] [place] [phone] Carolina Siddiqi MD [address] [place] [address] documented as of this encounter Goals Goal [...] documented as of this encounter Care Teams Professional Skateboarder Relationship Specialty Start Date End Date Carolina Siddiqi MD [address] [place] [phone] PCP - General Internal Medicine 07/11/23 Jolie Thompson Community Health Worker Case Management 02/14/24 documented as of this encounter
--- OUTSIDE RECORDS SUMMARY | 2024-10-24 10:00 | XMS_ITS | Encounter Summary ---
Author Organization [employer] Address [address] [facility] 7t [place] [address] Care Team Providers Care Labor Contractor Name Role Phone Carolina Siddiqi MD Primary Care Provide r Reason for Visit * Reason Comments chronic conditions Encounter Details Date Type Department Care Team (Latest Contact Info) Description 10/01/2024 10:00 AM EST Office Visit [facility] MEDICINE [address] [place] [address] Carolina Siddiqi MD [address] [place], [place] [phone] COVID-19 (Primary Dx); Rhinitis, unspecified type; Both [...] without long-term current use of insulin ([facility]) HTN (hypertension) Bilateral hearing loss Depressive state Loneliness Colon cancer screening Unstable gait Verruca Onycholysis Coronary artery disease of [place] artery of [place] heart with stable angina pectoris ([facility]) Acute systolic congestive heart failure ([facility]) Chronic systolic congestive heart failure ([facility]) GERD (gastroesophageal reflux disease) Dysphagia Nausea Skin lesion History of cardiac catheterization Ischemic cardiomyopathy NSTEMI (non-ST elevated myocardial infarction) ([facility]) Acute HFrEF (heart failure with reduced ejection fraction) ([facility]) Encounter for preventive care Chronic pain of right knee Cricopharyngeal achalasia COVID-19 Rhinitis Both eyes affected by mild nonproliferative diabetic retinopathy with macular edema, associated with type 2 diabetes mellitus ([facility]) No family history on file. Review of [...] at bedtime. Blood Glucose Monitoring Suppl (FreeStyle [place] Lite) w/Device kit Use to test blood [...] Description 12/10/2024 9:15 AM EDT Office Visit [facility] MED[facility] [address] [place] [address] Carolina Siddiqi MD [address] [place] [address] documented as of this encounter Goals Goal [...] Rapid Covid-19 BinaxNOW (10/01/2024 10:34 AM EST) [facility] Signature Rapid COVID Ag Positive QC Media Lot # [id number] Lot# Expiration Date [id number] Swab 10/01/2024 10:3 4 AM EST Carolina [...] documented as of this encounter Care Teams Labor Contractor Relationship Specialty Start Date End Date Carolina Siddiqi MD [address] [place] [address] PCP - General Internal Medicine 07/11/23 Jolie Thompson Community Health Worker Case Management 02/14/24 documented as of this encounter
--- OUTSIDE RECORDS SUMMARY | 2024-10-24 10:00 | XMS_ITS | Clinical Summary ---
Author Organization [employer] Address [address] [facility] 7t [place] [address] Care Team Providers Care Jewel Oliving Machine Operator Name Role Phone Carolina Siddiqi MD [...] hyperglycemia, without long-term current use of insulin ([facility]) Use to test blood sugar 2 times daily 100 each 12 06/10/20 24 025 Active Blood Glucose Monitoring Suppl (FreeStyle [place] Lite) w/Device kitIndications:Typ e 2 diabetes mellitus with hyperglycemia, without long-term current use of insulin ([facility]) Use to test blood sugar 2 times daily 1 kit 06/10/20 24 Active sacubitril-valsart an (Entresto) 97-103 MG tabletIndications: Primary hypertension,Chron ic systolic congestive heart failure ([facility]) Take 1 tablet by mouth 2 times daily. 60 tablet 12 07/01/20 24 025 Active TRUEplus Lancets 33G miscIndications:Ty pe 2 diabetes mellitus with hyperglycemia, without long-term current use of insulin ([facility]) USE DIRECTED TO TEST BLOOD SUGAR EVERY DAY 100 each 11 07/03/20 24 Active glucose blood (FREESTYLE LITE) test stripIndications:T ype 2 diabetes mellitus with hyperglycemia, without long-term current use of insulin ([facility]) USE DIRECTED TO TEST BLOOD SUGAR ONCE [...] hyperglycemia, without long-term current use of insulin ([facility]) USE DIRECTED TO TEST BLOOD SUGAR TWICE [...] 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 Also showed 60 % stenosis in mid RCA + Severe diffuse disease in the left PDA--> med management Assessment & Plan (02/26/2024 12:16 PM EDT): C.Cath on 12/21/23 at [facility]: Severe LAD disease + D1 [...] in the context of medical issues, early fdc, adjusting to living alone and language barrier. [...] stage. ?? PLAN: 1. Follow up with [facility]: Not recommended for follow-up 2. Patient goal is to improve health 3. Behavioral Recommendations a. Comply with medical recommendations b. Begin incorporating healthy changes in daily life c. May utilize [facility] and/or hotline, if symptoms worsen d. May reach out to [facility] for additional support Assessment & Plan (07/11/2023 1:04 PM EDT): [facility] call counseling done, he declines for now [...] Description 10/01/2024 10:00 AM EST Office Visit [facility] MEDICINE [address] [place] [phone] Carolina Siddiqi MD COVID-19 (Primary Dx); Rhinitis, unspecified type; Both eyes affected by mild nonproliferative diabetic retinopathy with macular edema, associated with type 2 diabetes mellitus (CMS/HCC); Chronic systolic congestive heart failure (CMS/HCC) 10/01/2024 Travel 09/19/2024 Patient Outreach [facility] MED[facility]INE [address] [place] [address] Carolina Siddiqi MD Pre-visit Planning (SDOH screening completed on 12/31/2024) 09/13/2024 Orders Only GENERIC EXTERNAL DATA DEPARTMENT Provider, Generic External Data 09/12/2024 Refill [facility] [address] [place] [address] Carolina Siddiqi MD Type 2 diabetes mellitus with hyperglycemia, without long-term current use of insulin ([facility]) 08/22/2024 Telephone [facility] [address] [place] [address] Carolina Siddiqi MD 08/21/2024 Telephone [facility] [address] [place] [address] Heike Schaefer, RN Results 08/21/2024 Orders Only [facility] [address] [place], [place] [phone] Carolina Siddiqi MD Cricopharyngeal achalasia (Primary Dx) 07/24/2024 Telephone [facility] [address] [place], [place] [phone] Carolina Siddiqi MD from Last 3 Months [...] Description 12/10/2024 9:15 AM EDT Office Visit [facility]INE [address] [place], [place] [phone] Carolina Siddiqi MD [address] [place], [place] [phone] Health Maintenance Due Date Last Done Comments [...] hyperglycemia, without long-term current use of insulin ([facility]) LAB COLOGUARD?? COLON CANCER SCREEN Routine 09/27/2023 8:35 AM EST Colon cancer screening from Last 3 Months or Most Recently Relevant to Health Maintenance Results * (ABNORMAL) POCT Rapid Covid-19 BinaxNOW (10/01/2024 10:34 AM EST) [facility] Rapid COVID Ag Positive QC Media Lot # [id number] Lot# Expiration Date [id number] Swab 10/01/2024 10:3 4 AM EST us Carolina Mahajan MD POINT OF CARE TEST EN TER/EDIT ORDERABLES Final Result * Hepatic Function Panel (09/13/2024 9:46 AM EST) Bilirubin, Total 0.7 0.0 - 1.0 mg/dL [facility] Bilirubin, Direct 0.2 0.0 - 0.5 mg/dL [facility] Aspartate Amino Transferase 23 5 - 37 U/L [facility] Alanine Aminotransferase 19 0 - 40 U/L [facility] Total Protein 7.2 6.5 - 8.0 g/dL [facility] Albumin Level 4.1 3.5 - 5.0 g/dL [facility] Alkaline Phosphatase 92 39 - 117 U/L [facility] Blood Venous blood specimen / Unknown 09/13/2024 9:46 AM EST 09/13/2024 9:46 AM EST us Carolina Mahajan MD LAB BLOOD ORDERABLES Final Result [facility] [address] [place] [phone] * Lipid Panel, Standard (09/13/2024 9:46 AM EST) Triglycerides 73 <150 mg/dL [facility] Comment:Desirable Triglyceri de: less than 150 mg/dLBorderline High Triglyceride 150-199 mg/dLHigh Triglyceride: 200-499 mg/dLVery High Triglyceride: greater than or equal to 5OO mg/dL Cholesterol 113 <200 mg/dL [facility] Comment:Desirable Cholestero l: less than 200 mg/dLBorderline High Cholesterol: 200-239 mg/dLHigh Cholesterol: greater than 239 mg/dL LDL Cholesterol Calculated 47 <100 mg/dL [facility] Comment:Desirable LDL: less than 100 mg/dLNear Optimal/Above Optimal LDL: 110- 129 mg/dLBorderline High LDL: 130-159 mg/dLHigh LDL: 160-189 mg/dLVery High LDL: greater than or equal to 190 mg/dL HDL Cholesterol 52 >40 mg/dL [facility] Comment:Desirable HDL: great er than 40 mg/dL Note: This HDL assay may give artificially low results in patients with liver disease. 09/13/2024 9:46 AM EST 09/13/2024 9:46 AM EST us Generic External Data Provider LAB BLOOD ORDERAB LES Final Result Performing Organization Address City/[facility]/ZIP Co de Phone Number [facility] [address] [place] [phone] * (ABNORMAL) Basic Metabolic Panel (09/13/2024 9:46 AM EST) Sodium 145 135 - 145 mmol/L [facility] Potassium 4.8 3.3 - 5.1 mmol/L [facility] Chloride 114(H) 96 - 108 mmol/L [facility] Carbon Dioxide 27 22 - 29 mmol/L [facility] Anion Gap 9(L) 12 - 20 [facility] Urea Nitrogen (BUN) 14 9 - 16 mg/dL [facility] Creatinine, Serum 1.77(H) 0.5 - 1.4 mg/dL [facility] Estimated Glomerular Filt Rate 39 [facility] Comment:Chronic Kidney Disea se: Estimated GFR < 60 mL/min/1.08u8Vammux Kidney Disease: Estimated GFR < 15 mL/min/1.73m2 Glucose 126(H) 60 - 115 mg/dL [facility] Calcium 9.1 8.4 - 10.2 mg/dL [facility] 09/13/2024 9:46 AM EST 09/13/2024 9:46 AM EST us Generic External Data Provider LAB BLOOD ORDERAB LES Final Result Performing Organization Address City/[facility]/ZIP Co de Phone Number [facility] [address] [place] [phone] * ECG 12 lead (08/19/2024 3:37 PM EST) Narrative Jenniffer Rousseau MD - 08/19/2024 3:37 PM EST Sinus rhythm, rate: 67bpm Left axis deviation Abnormal ECG [facility] ECG ORDERABLES Final Res ult * (ABNORMAL) POCT HGB A1C (07/01/2024 2:27 PM EDT) Hemoglobin A1C 6.5(A) 4.0 - 6.0 % QC Media Lot # [id number] Lot# Expiration Date [id number] Blood 07/01/2024 2:27 PM EDT Carolina Mahajan MD POINT OF CARE TEST EN TER/EDIT ORDERABLES Final Result * Cologuard?? colon cancer screening (09/27/2023 8:35 AM EST) Cologuard Result Negative Negative 10/06/19 5:26 PM EST [facility] (CLIA #:[id number]) Comment: NEGATIVE TEST RESULT. A negative Cologuard [...] cancer. ??Following a negative Cologuard result, the [place] [employer] Society and U.S. Multi-Society Task Force screening guidelines recommend a Cologuard re-screening interval of 3 years. References: [place] [employer] Guideline for Colorectal Cancer Screening: https://www.cancer.org/cancer/yndjr-hqkctl-bmyqfb/nqskmxbhq-tsukwpoji-wpgzbph/ac s-rec ommendations.html.; Kvng DK, Rose CR, Alaina LangK, Colorectal Cancer Screening: Recommendations for Physicians and Patients from the U.S. Multi-Society Task Force on Colorectal Cancer Screening , Am J Gastroenterology 2017; 112:0357-0504. TEST DESCRIPTION: Composite algorithmic analysis of stool [...] (Anamaria Morgan al, N Engl J Med 2014;370(14):5729-2248.) Cologuard may produce a false negative or false positive result (no colorectal cancer or precancerous polyp present at colonoscopy follow up). A negative Cologuard test result does not guarantee the absence of CRC or advanced adenoma (pre-cancer). The current Cologuard screening interval is every 3 years. ([place] [employer] Society and U.S. Multi-Society Task Force). Cologuard performance data in a 10,000 patient pivotal study using colonoscopy as the reference method can be accessed at the following location: www.[employer]ouf/results. Additional description of the Cologuard test process, warnings and precautions can be found at www.colWis[employer] Stationrd.com. Stool specimen (specimen) 09/27/2023 8:35 AM EST 09/28/2023 3:50 PM EST Carolina Mahajan MD LAB MOLECULAR DIAGNOS TICS ORDERABLES Final Result [facility] (CLIA #:[id number]) Sharon [place] [address], from Last 3 Months or Most Recently Relevant to Health Maintenance Insurance [employer] PPO Care Teams Jewel Oliving Machine Operator Relationship Specialty Start Date End Date Carolina Siddiqi MD [address] [place] [phone] PCP - General Internal Medicine 07/11/23 Jolie Thompson Community Health Worker Case Management 02/14/24
--- OUTSIDE RECORDS SUMMARY | 2024-10-24 10:00 | XMS_ITS | Encounter Summary ---
Author Organization [employer] Address [address] [facility] 7t [place] [address] Care Team Providers Care Print Line Feeder Name Role Phone Carolina Siddiqi MD Primary [...] Description 12/10/2024 9:15 AM EDT Office Visit [facility] MEDICINE [address] [place], [place] [phone] Carolina Siddiqi MD [address] [place] [address] documented as of this encounter Goals Goal [...] documented as of this encounter Care Teams Print Line Feeder Relationship Specialty Start Date End Date Carolina Siddiqi MD [address] [place], [place] [phone] PCP - General Internal Medicine 07/11/23 Jolie Thompson Community Health Worker Case Management 02/14/24 documented as of this encounter
--- OUTSIDE RECORDS SUMMARY | 2024-10-24 10:00 | XMS_ITS | Encounter Summary ---
Author Organization [employer] Address [address] [facility] 7t [place] [address] Care Team Providers Care Rodeo Rider Name Role Phone Carolina Siddiqi MD Primary Care Provide r Encounter Details Date Type Department Care Team ([facility] st Contact Info) Description 02/23/2024 Orders Only [facility] MEDICINE [address] [place] [address] Yeimi Saenz MD [address] [place] [address] Social History Tobacco Use Types Packs/Day Years [...] Description 12/10/2024 9:15 AM EDT Office Visit [facility] MEDICINE [address] [place] [phone] Carolina Siddiqi MD [address] [place] [phone] documented as of this encounter Visit Diagnoses Not on filedocumented in this encounter Additional Health Concerns Assessment Noted Time PHQ-9 Depression Total Score: 23 023 10:38 AM EDT documented as of this encounter Care Teams Rodeo Rider Relationship Specialty Start Date End Date Carolina Siddiqi MD [address] [place] [phone] PCP - General Internal Medicine 07/11/23 Jolie Thompson Community Health Worker Case Management 02/14/24 documented as of this encounter
== END 2024-10-24 09:31 | disposition home or self-care (01) ==
LOC: HO.US 09:30
PROVIDERS: PCP Internal Medicine; Visit Provider Nurse Practitioner Family
DX: K42.9 Umbilical hernia without obstruction or gangrene (principal); K43.9 Ventral hernia without obstruction or gangrene
CPT/HCPCS: 76705

== ENCOUNTER → 2024-10-24 09:32 | Outpatient (BNV) | payer OTHER, SELFPAY | PROVIDERS: PCP Internal Medicine; Visit Provider Specialist | DX: K42.9 Umbilical hernia without obstruction or gangrene (principal) | CPT/HCPCS: 76705 ==

== ENCOUNTER 2024-10-30 10:07 | Outpatient (REF) | payer OTHER, SELFPAY ==
--- OUTSIDE RECORDS SUMMARY | 2024-10-30 10:36 | XMS_ITS | Data Portability ---
Author Organization [facility], , [facility] Address [address] [place] [address] Care Team Providers Care Reordering Clerk Name Role Phone HARRIS BASILIO Internal Medicine ERIC HELLER General Surgeon Assessment No assessment recorded. Plan of Treatment Reminders Order Date Submit Date Provider Last Modified By Organization Details Last Modified Time Details Appointments None recorded. Lab hepatic function panel, serum - add on. 2015 016 [facility], [address] [place] [address], [id number], 6 04:08:03 culture, urine 2015 016 [facility], [address] [place] [address], [address], 6 04:07:56 Referral diabetes management referral - eritrean speaker with elevated blood sugar, likely needs injectables , please assist with next steps for blood glucose management. 2015 016 Not available 6 04:08:57 physical therapist referral - pt with right scapular pain and some right shoulder pain with movements. please assist with rehabilitat ion 2015 016 [facility], [address] [place] [address], [id number], 6 04:08:57 Procedures None recorded. Surgeries None recorded. Imaging None recorded. Medication Orders metformin ER 1,000 mg tablet,exte nded release 24hr (osmotic) 2015 016 [facility] ([facility] [address] [place], [id number], 6 04:07:36 glipizide 10 mg tablet 2015 016 [facility] [address] ([facility]), [address] [place], [id number], 6 04:06:44 metformin 1,000 mg tablet 2015 016 [facility] 67[address] ([facility]), [address] [place], [id number], 6 04:05:56 lisinopril 2.5 mg tablet 2015 016 [facility] [address]0594 ([facility]), [address] [place], [id number], 6 04:06:25 gabapentin 300 mg capsule 2015 016 [facility] 74168 ([facility]), [address] [place], [id number], 6 04:06:27 Patient TargetsNo targets recorded. Patient Instructions Encounter Date Encounter Id Patient Instructions Last Modified By Organization Details Last Modified Time 05/03/2016 [id number] Spent 25 minutes of [id number] time, of which greater than 50% was in counseling. After a discussion of treatment options, which included consideration of best practices and patient preferences, the above treatment plan and objectives were adopted. fkim Not available 05/03/2016 23:18:31 07/04/2016 [id number] -Start testing blood sugar more often, at [...] Kyra Mauro, Family Medicine, Encounter Date: 06/22/2016 eritrean speaker with elevate d blood sugar, likely needs injectables, please assist with next steps for blood glucose management. Referring Physician: Kyra Mauro Family Medicine, Encounter Date: 06/22/2016 Results Created Date Observation Date Name Description Value Unit Range Abnormal Flag Note LastModifiedBy Organization Detail LastModifiedTime 04/12/20 16 04/12/2016 CBC w/ auto diff WBC 5.8 K/uL 3.4-11 .2 Not Available [address], [address], 04/12/2016 01:57:38 04/12/20 16 04/12/2016 CBC w/ auto diff RBC 4.71 M/uL 4.50-5 .50 Not Available [address], [address], 04/12/2016 01:57:38 04/12/20 16 04/12/2016 CBC w/ auto diff hemoglobin 13.8 g/dL 13.0-1 7.0 Not Available [address], [address], 04/12/2016 01:57:38 04/12/20 16 04/12/2016 CBC w/ auto diff hematocrit 38.1 % 40.0-5 1.0 low Not Available [address], [address], 04/12/2016 01:57:38 04/12/20 16 04/12/2016 CBC w/ auto diff MCV 80.9 fL 79.0-9 8.0 Not Available [address], [address], 04/12/2016 01:57:38 04/12/20 16 04/12/2016 CBC w/ auto diff MCH 29.3 pg 27.0-3 4.8 Not Available [address], [address], 04/12/2016 01:57:38 04/12/20 16 04/12/2016 CBC w/ auto diff MCHC 36.2 g/dL 31.5-3 6.0 high Not Available [address], [address], 04/12/2016 01:57:38 04/12/20 16 04/12/2016 CBC w/ auto diff RDW 12.9 % 10.8-1 4.6 Not Available [address], [address], 04/12/2016 01:57:38 04/12/20 16 04/12/2016 CBC w/ auto diff MPV 10.4 fL 9.4-12 .4 Not Available [address], [address], 04/12/2016 01:57:38 04/12/20 16 04/12/2016 CBC w/ auto diff platelet count 204 K/uL 130-40 0 Not Available [address], [address], 04/12/2016 01:57:38 04/12/20 16 04/12/2016 CBC w/ auto diff neutrophils 49.9 % 45.3-7 7.7 Not Available [address], [address], 04/12/2016 01:57:38 04/12/20 16 04/12/2016 CBC w/ auto diff lymphocytes 35.0 % 12.3-3 9.7 Not Available [address], [address], 04/12/2016 01:57:38 04/12/20 16 04/12/2016 CBC w/ auto diff monocytes 10.8 % 4.1-12 .8 Not Available [address], [address], 04/12/2016 01:57:38 04/12/20 16 04/12/2016 CBC w/ auto diff eosinophils 3.80 % 0.00-7 .20 Not Available [address], [address], 04/12/2016 01:57:38 04/12/20 16 04/12/2016 CBC w/ auto diff basophils 0.30 % 0.00-2 .80 Not Available [address], [address], 04/12/2016 01:57:38 04/12/20 16 04/12/2016 CBC w/ auto diff absolute neutrophil 2.9 K/uL 1.4-7. 7 Not Available [address], [address], 04/12/2016 01:57:38 04/12/20 16 04/12/2016 CBC w/ auto diff absolute lymphocyte 2.0 K/uL 0.6-3. 2 Not Available [address], [address], 04/12/2016 01:57:38 04/12/20 16 04/12/2016 CBC w/ auto diff absolute monocytes 0.6 K/uL 0.1-0. 6 Not Available [address], [address], 04/12/2016 01:57:38 04/12/20 16 04/12/2016 CBC w/ auto diff absolute eosinophil 0.22 K/uL 0.01-0 .50 Not Available [address], [address], 04/12/2016 01:57:38 04/12/20 16 04/12/2016 CBC w/ auto diff absolute basophils 0.02 K/uL Not Available [address], [address], 04/12/2016 01:57:38 04/12/20 16 04/12/2016 CBC w/ auto diff immature granulocyte 0.20 % 0.00-0 .50 Not Available [address], [address], 04/12/2016 01:57:38 04/12/20 16 04/12/2016 CBC w/ auto diff absolute immature granulocyte 0.01 K/uL 0.00-0 .03 Not Available [address], [address], 04/12/2016 01:57:38 04/12/20 16 04/12/2016 tropo lenore T, serum troponin T <0.010 NG/mL 0.000- 0.030 Not Available [address], [address], 04/12/2016 02:21:34 04/12/20 16 04/12/2016 CMP, serum or plasm a glucose 289 mg/dL 70-99 high Not Available [address], [address], 04/12/2016 02:21:35 04/12/20 16 04/12/2016 CMP, serum or plasm a BUN 10 mg/dL 6-19 Not Available [address], [address], 04/12/2016 02:21:35 04/12/2004/12/2016 CMP, serum or plasm a creatinine 0.9 mg/dL 0.5-1. 5 Not Available [address], [address], 04/12/2016 02:21:35 04/12/20 16 04/12/2016 CMP, serum [...] ages of 17 and 69. Not Available [address], [address], 04/12/2016 02:21:35 04/12/20 16 04/12/2016 CMP, serum or plasm a sodium 137 mEq/L 133-14 6 Not Available [address], [address], 04/12/2016 02:21:35 04/12/20 16 04/12/2016 CMP, serum or plasm a potassium 4.1 mEq/L 3.3-5. 1 Not Available [address], [address], 04/12/2016 02:21:35 04/12/20 16 04/12/2016 CMP, serum or plasm a chloride 99 mEq/L 96-108 Not Available [address], [address], 04/12/2016 02:21:35 04/12/20 16 04/12/2016 CMP, serum or plasm a CO2 26 mEq/L 21-35 Not Available [address], [address], 04/12/2016 02:21:35 04/12/20 16 04/12/2016 CMP, serum or plasm a calcium 9.4 mg/dL 8.4-10 .3 Not Available [address], [address], 04/12/2016 02:21:35 04/12/20 16 04/12/2016 CMP, serum or plasm a total bilirubin 0.6 mg/dL 0.0-1. 2 Not Available [address], [address], 04/12/2016 02:21:35 04/12/20 16 04/12/2016 CMP, serum or plasm a alkaline phosphatase 87 U/L 39-117 Not Available [address], [address], 04/12/2016 02:21:35 04/12/20 16 04/12/2016 CMP, serum or plasm a AST (SGOT) 13 U/L 0-37 Not Available [address], [address], 04/12/2016 02:21:35 04/12/2004/12/2016 CMP, serum or plasm a ALT (SGPT) 19 U/L 0-40 Not Available [address], [address], 04/12/2016 02:21:35 04/12/2004/12/2016 CMP, serum or plasm a total protein 6.9 g/dL 6.5-8. 0 Not Available [address], [address], 04/12/2016 02:21:35 04/12/20 16 04/12/2016 CMP, serum or plasm a albumin 4.0 g/dL 3.9-4. 8 Not Available [address], [address], 04/12/2016 02:21:35 04/12/2004/12/2016 CMP, serum or plasm a globulin 2.9 gm/dL 1.0-4. 8 Not Available [address], [address], 04/12/2016 02:21:35 04/12/2004/12/2016 CMP, serum or plasm a A/G ratio 1.4 gm/dL 1.0-4. 8 Not Available [address], [address], 04/12/2016 02:21:35 04/12/20 16 04/12/2016 CMP, serum or plasm a anion gap 16 mEq/L 10-20 Not Available [facility] [address] [facility], [place], [address], 04/12/2016 02:21:35 05/31/20 16 05/31/2016 POC UA glu UA 1+ abnormal Not Available [address], [address], 05/31/2016 16:34:04 05/31/20 16 05/31/2016 POC UA clarity UA Slight ly Cloudy Not Available [address], [address], 05/31/2016 16:34:04 05/31/20 16 05/31/2016 POC UA uro UA 1.0000 Not Available [address], [address], 05/31/2016 16:34:04 05/31/20 16 05/31/2016 POC UA ket UA Negati ve Not Available [address], [address], 05/31/2016 16:34:04 05/31/20 16 05/31/2016 POC UA pro UA Trace abnormal Not Available [address], [address], 05/31/2016 16:34:04 05/31/20 16 05/31/2016 POC UA nit UA Negati ve Not Available [address], [address], 05/31/2016 16:34:04 05/31/20 16 05/31/2016 POC UA neida UA Negati ve Not Available [address], [address], 05/31/2016 16:34:04 05/31/20 16 05/31/2016 POC UA pH UA 6.0000 Not Available [address], [address], 05/31/2016 16:34:04 05/31/20 16 05/31/2016 POC UA SG UA >=1.03 00 Not Available [address], [address], 05/31/2016 16:34:04 05/31/20 16 05/31/2016 POC UA color UA Dark yellow Not Available [address], [address], 05/31/2016 16:34:04 05/31/20 16 05/31/2016 POC UA blo UA Negati ve Not Available [address], [address], 05/31/2016 16:34:04 05/31/20 16 05/31/2016 POC UA lisa UA Negati ve Not Available [address], [address], 05/31/2016 16:34:04 05/31/20 16 06/02/2016 cultu re, urine culture, urine, routine CULTU RE, URINE , ROUTI NE MICRO NUMBE R: [id number] TEST STATU S: FINAL SPECI MEN SOURC E: URINE SPECI MEN QUALI TY: ADEQU ATE RESUL T: No Growt h Not Available [facility] [address] [place] [address], [address], 06/02/2016 00:43:22 06/02/20 16 06/02/2016 BMP, serum or plasm a glucose 218 mg/dL 70-100 high Not Available [address], [address], 06/02/2016 11:19:48 06/02/20 16 06/02/2016 BMP, serum or plasm a BUN 8 mg/dL 7-18 Not Available [address], [address], 06/02/2016 11:19:48 06/02/20 16 06/02/2016 BMP, serum or plasm a creatinine 0.9 mg/dL 0.8-1. 3 Not Available [address], [address], 06/02/2016 11:19:48 06/02/20 16 06/02/2016 BMP, serum or plasm a B/C 8.9 ratio Not Available [address], [address], 06/02/2016 11:19:48 06/02/20 16 06/02/2016 BMP, serum or plasm a GFR -non 92.4 mL/mi n Recom marychuy d GFR by the Natio nal Kidne y Found ation >60 mL/mi n/1.7 3m2 - Mariam l <60 mL/mi n/1.7 3m2 - Chron ic Kidne y Disea se <15 mL/mi n/1.7 3m2 - Kidne y Failu re Not Available [address], [address], 06/02/2016 11:19:48 06/02/20 16 06/02/2016 BMP, serum or plasm a GFR - if 111.9 mL/mi n For Afric an Ameri can patie nts: Resul ts Multi plied by 1.21 Not Available [address], [address], 06/02/2016 11:19:48 06/02/20 16 06/02/2016 BMP, serum or plasm a sodium 144 mmol/ L 136-14 5 Not Available [address], [address], 06/02/2016 11:19:48 06/02/20 16 06/02/2016 BMP, serum or plasm a potassium 4.5 mmol/ L 3.5-5. 1 Not Available [address], [address], 06/02/2016 11:19:48 06/02/20 16 06/02/2016 BMP, serum or plasm a chloride 105 mmol/ L 96-107 Not Available [address], [address], 06/02/2016 11:19:48 06/02/20 16 06/02/2016 BMP, serum or plasm a anion gap 10.1 5.0-15 .0 Not Available [address], [address], 06/02/2016 11:19:48 06/02/20 16 06/02/2016 BMP, serum or plasm a CO2 29 mmol/ L 21-32 Not Available [address], [address], 06/02/2016 11:19:48 06/02/20 16 06/02/2016 BMP, serum or plasm a calcium 9.3 mg/dL 8.5-10 .3 Not Available [address], [address], 06/02/2016 11:19:48 06/02/20 16 06/02/2016 lipid panel , serum cholesterol 184 mg/dL <200 mg/dl Jonathon able 200-2 39 mg/dl Borde rline High >240 mg/dl High Not Available [address], [address], 06/02/2016 11:19:49 06/02/2006/02/2016 lipid panel , serum triglyceride s 116 mg/dL <150 mg/dL Mariam l 150-1 99 mg/dL Borde rline High 200-4 99 mg/dL High >500 mg/dL Very High Not Available [address], [address], 06/02/2016 11:19:49 06/02/2006/02/2016 lipid panel , serum direct HDL 45 mg/dL Not Available [address], [address], 06/02/2016 11:19:49 06/02/20 16 06/02/2016 LDL, calcu [...] r is not sergocristel arash. Not Available [address], [address], 06/02/2016 11:19:49 06/02/20 16 06/02/2016 HbA1c (hemo globi n A1c), blood hemoglobin A1C 7.7 % 4.8-6. 0 high Goal: <7% in Patie nts with Diabe brisa Not Available [address], [address], 06/02/2016 11:26:54 06/02/20 16 06/02/2016 HbA1c (hemo globi n A1c), blood estimated average glucose 174.3 mg/dL Not Available [address], [address], 06/02/2016 11:26:54 06/02/20 16 06/02/2016 micro album in, urine microalbumin 19.7 mg/L 1.3-20 .0 Not Available [address], [address], 06/02/2016 12:41:00 06/02/20 16 06/02/2016 micro album in, urine creatinine urine 201.4 mg/dL 30.0-1 25.0 high Not Available [address], [address], 06/02/2016 12:41:00 06/02/20 16 06/02/2016 micro album in, urine microalb/cre at ratio 9.8 mg/g_ creat 0.0-29 .0 Not Available [address], [place], [address], 06/02/2016 12:41:00 03/08/20 17 03/08/2017 urina lysis , refle x cultu re color Yellow Not Available [address], [address], 03/08/2017 21:57:08 03/08/20 17 03/08/2017 urina lysis , refle x cultu re appearance Clear Not Available [address], [address], 03/08/2017 21:57:08 03/08/20 17 03/08/2017 urina lysis , refle x cultu re specific gravity <=1.00 5 1.005- 1.030 Not Available [address], [address], 03/08/2017 21:57:08 03/08/20 17 03/08/2017 urina lysis , refle x cultu re pH 6.0 5.0-7. 0 Not Available [address], [address], 03/08/2017 21:57:08 03/08/20 17 03/08/2017 urina lysis , refle x cultu re protein Negati ve negati ve Not Available [address], [address], 03/08/2017 21:57:08 03/08/20 17 03/08/2017 urina lysis , refle x cultu re glucose 3+ negati ve abnormal Not Available [address], [address], 03/08/2017 21:57:08 03/08/20 17 03/08/2017 urina lysis , refle x cultu re ketones Negati ve negati ve Not Available [address], [address], 03/08/2017 21:57:08 03/08/20 17 03/08/2017 urina lysis , refle x cultu re bilirubin Negati ve negati ve Not Available [address], [address], 03/08/2017 21:57:08 03/08/20 17 03/08/2017 urina lysis , refle x cultu re blood Negati ve negati ve Not Available [address], [address], 03/08/2017 21:57:08 03/08/20 17 03/08/2017 urina lysis , refle x cultu re nitrite Negati ve negati ve Not Available [address], [address], 03/08/2017 21:57:08 03/08/20 17 03/08/2017 urina lysis , refle x cultu re leukocyte esterase Negati ve negati ve Not Available [address], [address], 03/08/2017 21:57:08 03/08/20 17 03/08/2017 CBC w/ auto diff WBC 5.6 K/uL 3.4-11 .2 Not Available [address], [address], 03/08/2017 21:57:30 03/08/20 17 03/08/2017 CBC w/ auto diff RBC 4.86 M/uL 4.50-5 .50 Not Available [address], [address], 03/08/2017 21:57:30 03/08/20 17 03/08/2017 CBC w/ auto diff hemoglobin 14.0 g/dL 13.0-1 7.0 Not Available [address], [address], 03/08/2017 21:57:30 03/08/20 17 03/08/2017 CBC w/ auto diff hematocrit 38.7 % 40.0-5 1.0 low Not Available [address], [address], 03/08/2017 21:57:30 03/08/20 17 03/08/2017 CBC w/ auto diff MCV 79.6 fL 79.0-9 8.0 Not Available [address], [address], 03/08/2017 21:57:30 03/08/20 17 03/08/2017 CBC w/ auto diff MCH 28.8 pg 27.0-3 4.8 Not Available [address], [address], 03/08/2017 21:57:30 03/08/20 17 03/08/2017 CBC w/ auto diff MCHC 36.2 g/dL 31.5-3 6.0 high Not Available [address], [address], 03/08/2017 21:57:30 03/08/20 17 03/08/2017 CBC w/ auto diff RDW 12.9 % 10.8-1 4.6 Not Available [address], [address], 03/08/2017 21:57:30 03/08/20 17 03/08/2017 CBC w/ auto diff MPV 10.8 fL 9.4-12 .4 Not Available [address], [address], 03/08/2017 21:57:30 03/08/20 17 03/08/2017 CBC w/ auto diff platelet count 207 K/uL 130-40 0 Not Available [address], [address], 03/08/2017 21:57:30 03/08/20 17 03/08/2017 CBC w/ auto diff neutrophils 50.8 % 45.3-7 7.7 Not Available [address], [address]27[address], 03/08/2017 21:57:30 03/08/20 17 03/08/2017 CBC w/ auto diff lymphocytes 32.9 % 12.3-3 9.7 Not Available [address], [address], 03/08/2017 21:57:30 03/08/20 17 03/08/2017 CBC w/ auto diff monocytes 13.2 % 4.1-12 .8 high Not Available [address], [address], 03/08/2017 21:57:30 03/08/20 17 03/08/2017 CBC w/ auto diff eosinophils 2.70 % 0.00-7 .20 Not Available [address], [address], 03/08/2017 21:57:30 03/08/20 17 03/08/2017 CBC w/ auto diff basophils 0.20 % 0.00-2 .80 Not Available [address], [address], 03/08/2017 21:57:30 03/08/20 17 03/08/2017 CBC w/ auto diff absolute neutrophil 2.9 K/uL 1.4-7. 7 Not Available [address], 67244, 03/08/2017 21:57:30 03/08/20 17 03/08/2017 CBC w/ auto diff absolute lymphocyte 1.8 K/uL 0.6-3. 2 Not Available [address], [address]71, 03/08/2017 21:57:30 03/08/20 17 03/08/2017 CBC w/ auto diff absolute monocytes 0.7 K/uL 0.1-0. 6 high Not Available [address], 07197, 03/08/2017 21:57:30 03/08/20 17 03/08/2017 CBC w/ auto diff absolute eosinophil 0.15 K/uL 0.01-0 .50 Not Available [address], [address]607, 03/08/2017 21:57:30 03/08/20 17 03/08/2017 CBC w/ auto diff absolute basophils 0.01 K/uL Not Available [address], [address]34, 03/08/2017 21:57:30 03/08/20 17 03/08/2017 CBC w/ auto diff immature granulocyte 0.20 % 0.00-0 .50 Not Available [address], [address], 03/08/2017 21:57:30 03/08/20 17 03/08/2017 CBC w/ auto diff absolute immature granulocyte 0.01 K/uL 0.00-0 .03 Not Available [address], 81240, 03/08/2017 21:57:30 03/08/20 17 03/08/2017 CMP, serum or plasm a glucose 499 mg/dL 70-99 high Not Available [address], [address], 03/08/2017 22:21:58 03/08/20 17 03/08/2017 CMP, serum or plasm a BUN 6 mg/dL 6-19 Not Available [address], [address], 03/08/2017 22:21:58 03/08/20 17 03/08/2017 CMP, serum or plasm a creatinine 1.1 mg/dL 0.5-1. 5 Not Available [address], [address]68, 03/08/2017 22:21:58 03/08/20 17 03/08/2017 CMP, serum [...] ages of 17 and 69. Not Available [address], [address], 03/08/2017 22:21:58 03/08/2003/08/2017 CMP, serum or plasm a sodium 136 mEq/L 133-14 6 Not Available [address], [address]64, 03/08/2017 22:21:58 03/08/20 17 03/08/2017 CMP, serum or plasm a potassium 4.2 mEq/L 3.3-5. 2 Not Available [address], [address]183, 03/08/2017 22:21:58 03/08/2003/08/2017 CMP, serum or plasm a chloride 98 mEq/L 96-108 Not Available [address], [address]37, 03/08/2017 22:21:58 03/08/2003/08/2017 CMP, serum or plasm a CO2 27 mEq/L 21-35 Not Available [address], 72270, 03/08/2017 22:21:58 03/08/2003/08/2017 CMP, serum or plasm a calcium 9.4 mg/dL 8.4-10 .3 Not Available [address], 73841, 03/08/2017 22:21:58 03/08/2003/08/2017 CMP, serum or plasm a total bilirubin 0.4 mg/dL 0.0-1. 2 Not Available [address], [address]50, 03/08/2017 22:21:58 03/08/2003/08/2017 CMP, serum or plasm a alkaline phosphatase 115 U/L 39-117 Not Available [address], [address], 03/08/2017 22:21:58 03/08/20 17 03/08/2017 CMP, serum or plasm a AST (SGOT) 11 U/L 0-37 Not Available [address], [address], 03/08/2017 22:21:58 03/08/20 17 03/08/2017 CMP, serum or plasm a ALT (SGPT) 14 U/L 0-40 Not Available [address], [address]11, 03/08/2017 22:21:58 03/08/20 17 03/08/2017 CMP, serum or plasm a total protein 7.4 g/dL 6.5-8. 0 Not Available [address], 24798, 03/08/2017 22:21:58 03/08/20 17 03/08/2017 CMP, serum or plasm a albumin 4.1 g/dL 3.9-4. 8 Not Available [address], 79145, 03/08/2017 22:21:58 03/08/20 17 03/08/2017 CMP, serum or plasm a globulin 3.3 gm/dL 1.0-4. 8 Not Available [address], 71525, 03/08/2017 22:21:58 03/08/20 17 03/08/2017 CMP, serum or plasm a A/G ratio 1.2 gm/dL 1.0-4. 8 Not Available [address], [address]17, 03/08/2017 22:21:58 03/08/20 17 03/08/2017 CMP, serum or plasm a anion gap 15 mEq/L 10-20 Not Available [address], [address]69, 03/08/2017 22:21:58 03/08/20 17 03/08/2017 C react alfreda prote in, QN, serum or plasm a C-reactive protein 0.24 mg/dL 0.00-0 .50 Not Available [address], 19806, 03/08/2017 22:21:58 03/08/20 17 03/08/2017 lipas e, serum or plasm a lipase 37 U/L 16-63 Not Available [address], [address], 03/08/2017 22:21:59 10/16/19 18 10/16/2017 urina lysis , refle x cultu re color Yellow yellow Not Available [facility] [address] [place] [address], [address], 10/16/2017 15:03:07 10/16/19 18 10/16/2017 urina lysis , refle x cultu re clarity Clear Not Available [facility] [address] [place] [address], [address], 10/16/2017 15:03:07 10/16/19 18 10/16/2017 urina lysis , refle x cultu re glucose 3+ negati ve abnormal Not Available [facility] [address] [place] [address], [address], 10/16/2017 15:03:07 10/16/19 18 10/16/2017 urina lysis , refle x cultu re bili Negati ve negati ve Not Available [facility] [address] [place] [address], [address], 10/16/2017 15:03:07 10/16/19 18 10/16/2017 urina lysis , refle x cultu re ketones Negati ve negati ve Not Available [facility] [address] [place], [address], 10/16/2017 15:03:07 10/16/19 18 10/16/2017 urina lysis , refle x cultu re specific gravity 1.010 1.005- 1.030 Not Available [facility] [address] [place], [address], 10/16/2017 15:03:07 10/16/19 18 10/16/2017 urina lysis , refle x cultu re blood Negati ve negati ve Not Available [facility] [address] [place], [address], 10/16/2017 15:03:07 10/16/19 18 10/16/2017 urina lysis , refle x cultu re pH 5.5 5.0-8. 0 Not Available [facility] [address] [place], [address], 10/16/2017 15:03:07 10/16/19 18 10/16/2017 urina lysis , refle x cultu re protein Negati ve negati ve Not Available [facility] [address] [place], [address], 10/16/2017 15:03:07 10/16/19 18 10/16/2017 urina lysis , refle x cultu re nitrite Negati ve negati ve Not Available [facility] [address] [place], [address], 10/16/2017 15:03:07 10/16/19 18 10/16/2017 urina lysis , refle x cultu re leukocyte esterase, ur Negati ve negati ve Not Available [facility] [address] [place], [address], 10/16/2017 15:03:07 10/16/19 18 10/16/2017 CBC w/ auto diff WBC 5.58 K/uL 3.40-1 1.20 Not Available [facility] [address] [place], [address], 10/16/2017 16:30:11 10/16/19 18 10/16/2017 CBC w/ auto diff RBC 4.75 M/uL 4.50-5 .50 Not Available [facility] (Outpatient) [address] [place], [address], 10/16/2017 16:30:11 10/16/19 18 10/16/2017 CBC w/ auto diff HGB 13.7 g/dL 13.0-1 7.0 Not Available [facility] (Outpatient) [address] [place], [address], 10/16/2017 16:30:11 10/16/19 18 10/16/2017 CBC w/ auto diff HCT 39.0 % 40.0-5 1.0 low Not Available [facility] (Outpatient) [address] [place], [address], 10/16/2017 16:30:11 10/16/19 18 10/16/2017 CBC w/ auto diff plt 218 K/uL 130-40 0 Not Available [facility] (Outpatient) [address] [place], [address], 10/16/2017 16:30:11 10/16/19 18 10/16/2017 CBC w/ auto diff MCV 82.1 fL 79.0-9 8.0 Not Available [facility] (Outpatient) [address] [place], [address], 10/16/2017 16:30:11 10/16/19 18 10/16/2017 CBC w/ auto diff MCH 28.8 pg 27.0-3 4.8 Not Available [facility] (Outpatient) [address] [place], [address], 10/16/2017 16:30:11 10/16/19 18 10/16/2017 CBC w/ auto diff MCHC 35.1 g/dL 31.5-3 6.0 Not Available [facility] (Outpatient) [address] [place], [address], 10/16/2017 16:30:11 10/16/19 18 10/16/2017 CBC w/ auto diff RDW 12.8 % 10.8-1 4.6 Not Available [facility] (Outpatient) [address] [place], [address], 10/16/2017 16:30:11 10/16/19 18 10/16/2017 CBC w/ auto diff MPV 10.9 fL 9.4-12 .4 Not Available [facility] (Outpatient) [address] [place], [address], 10/16/2017 16:30:11 10/16/19 18 10/16/2017 CBC w/ auto diff NRBC 0.00 /100_ WBCs Not Available [facility] (Outpatient) [address] [place], [address], 10/16/2017 16:30:11 10/16/19 18 10/16/2017 CBC w/ auto diff absolute NRBC 0.00 K/uL Not Available [facility] (Outpatient) [address] [place], [address], 10/16/2017 16:30:11 10/16/19 18 10/16/2017 CBC w/ auto diff diff method Auto Not Available [facility] (Outpatient) [address] [place], [address], 10/16/2017 16:30:11 10/16/19 18 10/16/2017 CBC w/ auto diff neuts 54.2 % 45.30- 77.70 Not Available [facility] (Outpatient) [address] [place], [address], 10/16/2017 16:30:11 10/16/19 18 10/16/2017 CBC w/ auto diff lymphs 32.1 % 12.30- 39.70 Not Available [facility] (Outpatient) [address] [place], [address], 10/16/2017 16:30:11 10/16/19 18 10/16/2017 CBC w/ auto diff monos 10.4 % 4.10-1 2.80 Not Available [facility] (Outpatient) [address] [place] [address], [address], 10/16/2017 16:30:11 10/16/19 18 10/16/2017 CBC w/ auto diff eos 2.7 % 0-7.2 Not Available [facility] (Outpatient) [address] [place] [address], [address], 10/16/2017 16:30:11 10/16/19 18 10/16/2017 CBC w/ auto diff basos 0.4 % 0-2.80 Not Available [facility] (Outpatient) [address] [place], [address], 10/16/2017 16:30:11 10/16/19 18 10/16/2017 CBC w/ auto diff granulocytes , immature (%) 0.2 % 0.0-0. 9 Not Available [facility] (Outpatient) [address] [place] [address], [address], 10/16/2017 16:30:11 10/16/19 18 10/16/2017 CBC w/ auto diff absolute neuts 3.03 K/uL 1.40-7 .70 Not Available [facility] (Outpatient) [address] [place], [address], 10/16/2017 16:30:11 10/16/19 18 10/16/2017 CBC w/ auto diff absolute lymphs 1.79 K/uL 0.60-3 .20 Not Available [facility] (Outpatient) [address] [place] [address], [address], 10/16/2017 16:30:11 10/16/19 18 10/16/2017 CBC w/ auto diff absolute monos 0.58 K/uL 0.11-0 .59 Not Available [facility] (Outpatient) [address] [place], [address], 10/16/2017 16:30:11 10/16/19 18 10/16/2017 CBC w/ auto diff absolute eos 0.15 K/uL 0.01-0 .50 Not Available [facility] (Outpatient) [address] [place], [address], 10/16/2017 16:30:11 10/16/19 18 10/16/2017 CBC w/ auto diff absolute basos 0.02 K/uL 0.00-0 .08 Not Available [facility] (Outpatient) [address] [place], [address], 10/16/2017 16:30:11 10/16/19 18 10/16/2017 CBC w/ auto diff granulocytes , immature 0.01 K/uL 0.00-0 .05 Not Available [facility] (Outpatient) [address] [place], [address], 10/16/2017 16:30:11 10/16/19 18 10/16/2017 BMP, blood sodium 142 mmol/ L 133-14 6 Not Available [facility] (Outpatient) [address] [place], [address], 10/16/2017 16:53:22 10/16/19 18 10/16/2017 BMP, blood chloride 105 mmol/ L 96-108 Not Available [facility] (Outpatient) [address] [place], [address], 10/16/2017 16:53:22 10/16/19 18 10/16/2017 BMP, blood potassium 4.7 mmol/ L 3.3-5. 1 Not Available [facility] (Outpatient) [address] [place], [address], 10/16/2017 16:53:22 10/16/19 18 10/16/2017 BMP, blood CO2 29 mmol/ L 21-35 Not Available [facility] (Outpatient) [address] [place] [address], [address], 10/16/2017 16:53:22 10/16/19 18 10/16/2017 BMP, blood BUN 6 mg/dL 6-19 Not Available [facility] (Outpatient) [address] [place] [address], [address], 10/16/2017 16:53:22 10/16/19 18 10/16/2017 BMP, blood creatinine 0.90 mg/dL 0.5-1. 5 Not Available [facility] (Outpatient) [address] [place] [address], [address], 10/16/2017 16:53:22 10/16/19 18 10/16/2017 BMP, blood glucose 229 mg/dL 70-99 high Not Available [facility] (Outpatient) [address] [place] [address], [address], 10/16/2017 16:53:22 10/16/19 18 10/16/2017 BMP, blood calcium 9.6 mg/dL 8.4-10 .3 Not Available [facility] (Outpatient) [address] [place] [address], [address], 10/16/2017 16:53:22 10/16/19 18 10/16/2017 BMP, blood eGFR >60 mL/mi n/1.7 3m2 >60 Abnor mal if <60. If patie nt is Afric an-Am kwabena n, multi ply the resul t by 1.21. Not Available [facility] (Outpatient) [address] [place] [address], [address], 10/16/2017 16:53:22 10/16/19 18 10/16/2017 BMP, blood anion gap 13 mmol/ L 10-20 Not Available [facility] (Outpatient) [address] [place] [address], [address], 10/16/2017 16:53:22 10/16/19 18 10/16/2017 lipas e, serum or plasm a lipase 25 U/L 16-63 Not Available [facility] (Outpatient) [address] [place], [address], 10/16/2017 16:53:24 10/16/19 18 10/16/2017 lfts (hepa tic panel ) alkaline phosphatase 98 U/L 39-117 Not Available [facility] (Outpatient) [address] [place], [address], 10/16/2017 16:53:26 10/16/19 18 10/16/2017 lfts (hepa tic panel ) total bilirubin 0.5 mg/dL 0-1.2 Not Available [facility] (Outpatient) [address] [place] [address], [address], 10/16/2017 16:53:26 10/16/19 18 10/16/2017 lfts (hepa tic panel ) direct bilirubin <0.2 mg/dL 0-0.3 Not Available [facility] (Outpatient) [address] [place], [address], 10/16/2017 16:53:26 10/16/19 18 10/16/2017 lfts (hepa tic panel ) bilirubin (indirect) NOT CALCUL ATED mg/dL 0-1.5 Not Available [facility] (Outpatient) [address] [place] [address], [address], 10/16/2017 16:53:26 10/16/19 18 10/16/2017 lfts (hepa tic panel ) AST 14 U/L 0-37 Not Available [facility] (Outpatient) [address] [place] [address], [address], 10/16/2017 16:53:26 10/16/19 18 10/16/2017 lfts (hepa tic panel ) ALT 16 U/L 0-40 Not Available [facility] (Outpatient) [address] [place], [address], 10/16/2017 16:53:26 10/16/19 18 10/16/2017 lfts (hepa tic panel ) total protein 7.4 g/dL 6.5-8. 0 Not Available [facility] (Outpatient) [address] [place], [address], 10/16/2017 16:53:26 10/16/19 18 10/16/2017 lfts (hepa tic panel ) albumin 4.3 g/dL 3.9-4. 8 Not Available [facility] (Outpatient) [address] [place], [address], 10/16/2017 16:53:26 10/16/19 18 10/16/2017 lfts (hepa tic panel ) globulin 3.1 g/dL 1-4.8 Not Available [facility] (Outpatient) [address] [place], [address], 10/16/2017 16:53:26 10/16/19 18 10/16/2017 lfts (hepa tic panel ) A/G ratio 1.39 ratio 1.00-4 .80 Not Available [facility] (Outpatient) [address] [place], [address], 10/16/2017 16:53:26 04/12/20 16 04/12/2016 XR, chest , 2 view No observ ation record ed. [email or web address] [facility] [address] [place], [address], 04/18/2016 07:51:26 06/16/20 16 04/12/2016 chest 2 [...] DORIAN MON MD 2015 06:35 AM mmastroberti [facility] [address] [facility], [place], [address], 06/17/2016 10:45:13 03/09/20 17 03/09/2017 CT, abdom [...] . Initia l report render ed by [facility]. POS - CDHRAD BOARDW S7 Electr onical ly Signed by: MO CERON on 017 10:12 AM Techno logist : NINI MONICA, KEVIN Transc ribed by: Yuli allen, PS360 Result s 2016 10:04 AM Electr onical ly Signed By: MO CERON MD 2016 10:12 AM [facility] [address] [place] [address], [address], 03/13/2017 13:11:35 10/17/19 18 10/16/2017 xr abdom [...] P.S. LQP X 7 MONTHS ROBLES ISAAC [facility] [address] [place], [address], 10/17/2017 08:11:32 Result Notes None recorded. Problems Name Problem SNOMED Code Status Onset Date Resolution Date Notes Provider Name and Address Organization Details Recorded Time Essential hypertensio n 19600748 Completed 01/20/2016 Robles Isaac MD [address] [place], [place] [address] [place], [address], [facility] 6 23:10:47 Diabetes mellitus 63521147 Completed 01/20/2016 Robles Isaac MD [address] [place], [place] [address], [address], [facility] 6 23:10:50 Skin lesion 37956381 Completed 01/20/2016 Robles hendrickson MD [address] [place], [place] [address], [address], [facility] 6 23:10:54 Benign essential hypertensio n 7243966 Active Robles Isaac MD [address] [place], [place] [address], [address], [facility] 6 08:53:56 Mixed hyperlipide muna 031451408 Active Robles Isaac MD [address] [place], [place] [address], [address], [facility] 6 08:53:56 Uncontrolle d type 2 diabetes mellitus 700377413 Active Robles Isaac MD [address] [place], [place] [address], [address], [facility] 6 08:53:56 Problem Notes None recorded. Procedures Surgical History Date Name Laterality Status Provider Name and Address Organization Details Recorded Time 6 POC Urinalysis Testing completed Yocasta [facility] 05/31/2016 16:24:56 4 Excision completed Robles Isaac MD [address] [place], [place] [address], [address], [facility] 10/15/2013 11:15:56 Imaging Results Imaging Date Name Status LastModified by Organiz ation Details LastModified Time 04/12/2016 XR, chest, 2 view completed [facility] [address] , [place], [address], 04/18/2016 07:51:26 04/12/2016 chest 2 V completed mmastroberti [facility] [address] [place], [address], 06/17/2016 10:45:13 03/09/2017 CT, abdomen + pelvis, w/o contrast completed [facility] [address] [place], [address], 03/13/2017 13:11:35 10/16/2017 xr abdomen series supine with decubitis/ere ct and single view chest completed [facility] [address] [place], [address], 10/17/2017 08:11:32 Procedure Notes None recorded. Medical [...] Available Not Available No t Available [employer] [place] [employer] kit active Not Available Not Available Not Available Vitals Date Recorded Body height Body weight Body mass index (BMI) Systolic blood pressure Diastolic blood pressure Provider Name and Address Organization Details Last Updated DateTime 05/03/2016 158.115 cm 21438.45 g 27.4 kg/m2 144 mm[Hg] 74 mm[Hg] Alessandra Orellana MA [facility] 6 08:30:54 Date Recorded Body height Heart rate Oxygen saturation Oxygen saturation in Arterial blood by Pulse oximetry Systolic blood pressure Diastolic blood pressure Provider Name and Address Organization Details Last Updated DateTime 6 158.115 cm 85 /min 98 % 98 % 142 mm[Hg] 88 mm[Hg] [facility] 6 16:06:44 Date Recorded Body height Systolic blood pressure Diastolic blood pressure Provider Name and Address Organization Details Last Updated DateTime 06/06/2016 158.115 cm 142 mm[Hg] 72 mm[Hg] [facility] 06/06/2016 09:58:35 Date Recorded Body height Body weight Body mass index (BMI) Systolic blood pressure Diastolic blood pressure Provider Name and Address Organization Details Last Updated DateTime 06/22/2016 158.115 cm 10047.26 g 27.3 kg/m2 150 mm[Hg] 80 mm[Hg] [facility] 6 11:20:12 Social History Question Answer Notes LastModified by Organizat ion Details LastModified Time Tobacco Smoking Status Never Smoker Alessandra Orellana MA [facility] 10/02/2013 10:35:52 What Is Your Level Of [...] 10/02/2013 What Is Your Occupation? Works At [employer] Information not available 10/02/2013 How Many Days [...] - Information not available 07/04/2016 [facility]ation not available 10/02/2013 How Many Children Do You Have? 5 Information not available 10/02/2013 Seat Belts Used Routinely Yes [facility] Information not available 10/02/2013 Smoke Alarm In Home Yes [facility] Information not available 10/02/2013 How Much Tobacco Do You Smoke? No [facility] Information not available 12/14/2015 General Stress Level [...] you have difficulty dressing or bathing? No [facility] Information not available 10/02/2013 Mental Status Question Answer Note LastModified by Organizat ion Details LastModified Time Do you have difficulty concentrating, remembering or making decisions? Yes [facility] n ot available 10/02/2013 Family History [...] Tdap 4 completed Not Available [facility] 09/28/2019 02:16:08 Influenza, split virus, quadrivalent, PF 4 completed Not Available [facility] 09/28/2019 02:18:56 pneumococcal polysaccharide PPV23 4 completed Not Available [facility] 09/28/2019 02:14:36 Influenza, split virus, trivalent, PF 4 completed Not Available [facility] 09/28/2019 02:19:21 Influenza, split virus, quadrivalent, PF 6 completed Not Available [facility] 09/28/2019 02:33:00 Past Encounters Encounter ID Performer Location Encounter Start Date Encounter Closed Date Diagnosis/Indication Diagnosis SNOMED-CT Code Diagnosis ICD10 Code Diagnosis Note [id number] [facility], OFFICE [address] [place] [address] 10/02/2013 10:13:34 10/02/2013 11:26:17 Essential hypertension 74330845 Elevated BP. Previously not engaged in care. Low salt diet recommende d. Start Chlorthali done. Will add SHUN-I once renal function establishe d. Follow up in 1 week. Advised to get fasting labwork tomorrow. Diabetes mellitus 92100134 Patient with new-onset diabetes. Symptoms of polydipsia [...] week. Screening for malignant neoplasm of colon 069531371 Skin lesion 15682652 Inv olving the left posterior upper arm. Likely epidermoid cyst. Schedule for an excision. No clinical evidence of cellulitis or acute abscess. Influenza vaccine needed [id number] 106 Administra tion of diphtheria, pertussis, and tetanus vaccine [id number] TINO Mendoza, [facility], OFFICE [address] [place] [address] 10/09/2013 09:59:46 10/09/2013 13:05:30 Essential hypertension 31496638 Previously not engaged in care. Tolerating Chlorthali done. BP improved. Low salt diet recommende d. Will add Lisinopril 2.5mg po daily. Repeat BMP at his next visit. Diabetes mellitus 23075711 Patient with new-onset diabetes. Symptoms of polydipsia [...] start SHUN-I. Follow up in 1 week. [id number] TINO Mendoza, [facility], [address]ICE [address] [place] [address] 10/15/2013 10:06:38 10/15/2013 13:08:04 Diabetes mellitus 28268725 Patient with new-onset diabetes. Symptoms of polydipsia [...] in 1 week. Epidermoid cyst of skin 712748975 Non-infect ed, left upper arm cyst removed [...] week for wound check and suture removal. [id number] Robles Isaac MD , [facility], [address] [place] [address] 10/23/2013 14:35:31 10/23/2013 15:12:07 Chest pain 43172594 His symptoms of left-sided chest pain and [...] s for UC/ER use discussed. Skin lesion 97489379 Inv olving the left posterior upper arm. Sutures removed. Hypertroph ic scar and contact dermatitis noted. Purulent discharge expressed with suture removal. Wound care discussed. Gauze applied. Follow up early next week for a follow up. Consider General Surgery referral if not healed completely . [id number] TINO Mendoza, [facility], [address] [place] [address] 10/30/2013 08:21:52 10/30/2013 08:54:16 Essential hypertension 64992565 Previously was not engaged in care. Tolerating Chlorthali done and Lisinopril . BP markedly improved. Low salt diet recommende d. Check BMP at his next visit. Diabetes mellitus 71067782 Patient with new-onset diabetes. Symptoms of polydipsia [...] ratio. SHUN-I started previously . Skin lesion 05970847 Inv olving the left posterior upper arm. Sutures removed last week. Hypertroph ic scar and contact dermatitis noted at the time. Now healing well. No fluctuance . Consider General Surgery referral if not healed completely . Chest pain 05026496 His symptoms of left-sided chest , SOB [...] symptoms. Indication s for UC/ER use discussed. [id number] TINO Stanley, [facility], [address] [place] [address] 11/27/2013 09:03:19 11/27/2013 09:47:48 Diabetes mellitus 59788915 Patient with recent diagnosis of diabetes. Symptoms [...] elevated MA/Cr ratio. SHUN-I started. Essential hypertension 96395679 Previously was not engaged in care. Tolerating Chlorthali done. Erroneousl y stopped Lisinopril . Will resume. No intoleranc e issues. BP markedly improved. Low salt diet recommende d. Epidermoid cyst of skin 261731181 Non-infect ed, left upper arm cyst removed at his previous visit due to persistent pain. Patient with residual scarring. No current evidence of infection. [id number] Xigurwinder Watkins , [facility], [address] [place] [address] 02/19/2014 11:04:44 02/19/2014 12:04:40 Adult health examination 531189683 See Risk Assessment and Lifestyle Change Counseling section above. Tdap vaccine UTD. PNA vaccine administer ed today. Home/vehic le/sexual safety reviewed. Not sexually active. Colonoscop y scheduled 03/2014. Counseling 355229276 Benign ess ential hypertension 8084427 Previously was not engaged in care. Tolerating Chlorthali done and Lisinopril . BP markedly improved. Low salt diet recommende d. Mixed hyperlipidemia 338850255 Fair FLP with LDL 92. Would like better control given his underlying diabetes, but also struggles with polypharma cy. Low fat/choles terol diet and exercise recommende d. Diarrhea 91889003 Patien t with chronic diarrhea intermitte ntly. Recently evaluated by Dr. Basilio (GI). Scheduled to have a colonoscop y in 03/2014. Recent IgA mildly positive (other celiac markers negative). No BRBPR/boris na. No abdominal pain. Uncontroll ed type 2 diabetes mellitus 723348029 States home BS 140-200. Improved Hgb A1c [...] hydration discussed. Administra tion of pneumococcal vaccine [id number] Robles Isaac MD [facility], [address] [place] [address] 04/09/2014 07:59:46 04/09/2014 08:49:22 Uncontrolled type 2 diabetes mellitus 882623447 States home BS 120-150. Overall improved Hgb [...] discussed. Ample oral hydration discussed. Essential hypertension 14828226 Previously was not engaged in care. Tolerating Chlorthali done. Erroneousl y stopped Lisinopril . Will resume. No intoleranc e issues. BP markedly improved. Will titrate up Lisinopril as needed. Low salt diet clayton carmen [id number] [facility], [address] [place] [address] 07/07/2014 07:47:01 07/07/2014 08:23:26 Mixed hyperlipidemia 327645337 Patient with LDL of 150 (06/2014). However, his 10-year risk of GA is 7%. New AHA/ACC guideline discussed. Advised on low fat/choles terol diet and exercise. Influenza vaccine needed [id number] 106 Uncontroll ed type 2 diabetes mellitus 283107148 States home BS 100-160. Overall improved Hgb [...] discussed. Ample oral hydration discussed. Essential hypertension 81922831 Previously was not engaged in care. Tolerating Chlorthali done and Lisinopril . No intoleranc e issues. BP markedly improved. Low salt diet recommende d. [id number] MD GISSELL Huizar, [facility], [address] [place] [address] 11/25/2015 08:22:18 11/25/2015 09:20:28 Benign essential hypertension 1696407 I10 Blood pressure elevated. Lost insurance in 2013. Has been off his medication s. No CP/SOB/CUEVAS . Recommende d to continue to work on diet, exercise, and lowering salt intake. Will resume Lisinopril (but will hold off on Chlorthali done). Check BMP. Mixed hyperlipidemia 267 258109 E78.2 Patient with previous LDL of 150 (06/2014). However, his 10-year risk of GA is 7%. New AHA/ACC guideline discussed. Advised on low fat/choles terol diet and exercise. Uncontrol ed type 2 diabetes mellitus 501737295 E11.65 Out of care for over 1 [...] oral hydration discussed. Unexplaine d weight loss 041829544 R63.4 Patient with 15 lbs weight loss since his last visit. Denies bleeding. Out of medication for over 1 year. Will continue to monitor. [id number] Robles Isaac MD , [facility], [address] [place] [address] 12/14/2015 10:17:02 12/15/2015 08:21:49 Benign essential hypertension 0972331 I10 Blood pressure improved. Lost insurance in 2013. Was off his medication s. No CP/SOB/CUEVAS . Recommende d to continue to work on diet, exercise, and lowering salt intake. Recently started Lisinopril (but will hold off on Chlorthali done). Mixed hyperlipidemia 267 590398 E78.2 Patient with previous LDL of 150 (06/2014). However, his 10-year risk of GA is 7%. New AHA/ACC guideline discussed. Advised on low fat/choles terol diet and exercise. Uncontroll ed type 2 diabetes mellitus 984081966 E11.65 Out of care for over 1 [...] medication s discussed. Ample oral hydration discussed. [id number] Robles Isaac MD , [facility], [address] [place] [address] 01/11/2016 08:21:26 01/11/2016 08:52:49 Benign essential hypertension 6417259 I10 Blood pressure elevated, but previously well [...] if persistent ly elevated. Mixed hyperlipidemia 267 317039 E78.2 Patient with previous LDL of 150 (06/2014). However, his 10-year risk of GA is 7%. New AHA/ACC guideline discussed. Advised on low fat/choles terol diet and exercise. Uncontroll ed type 2 diabetes mellitus 974852355 E11.65 Out of care for over 1 [...] hydration discussed. Right uppe r quadrant pain 917503607 R10.11 Patient with 1-week duration of RUQ abdominal pain. No clinical evidence of acute abdomen. Will check US to further evaluate. Advised to avoid high fat diet. Indication s for UC/ER use reviewed. [id number] Robles Isaac MD , [facility], [address] [place] [address] 01/20/2016 08:45:30 01/20/2016 09:28:43 Cholelithiasis without obstruction 68105848 K80.20 Patient with 1-week duration of RUQ abdominal pain. No clinical evidence of acute abdomen. Abdominal US revealed gallstones . Will refer to General Surgery for further evaluation . Advised to avoid high fat diet. Indication s for UC/ER use reviewed. Benign ess ential hypertension 3787527 I10 Blood pressure improved overall. Lost insurance in 2013. Was off his medication s. No CP/SOB/CUEVAS . Recommende d to continue to work on diet, exercise, and lowering salt intake. Recently started Lisinopril (but will hold off on Chlorthali done). Mixed hyperlipidemia 267 280544 E78.2 Patient with previous LDL of 150 (06/2014). However, his calculated 10-year risk of GA is 7%. New AHA/ACC guideline discussed. Advised on low fat/choles terol diet and exercise. Uncontroll ed type 2 diabetes mellitus 608147016 E11.65 Out of care for over 1 [...] medication s discussed. Ample oral hydration discussed. [id number] Robles Isaac MD , [facility], [address] [place] [address] 05/03/2016 08:21:49 05/03/2016 08:48:10 Neuropathy 146236187 G62.9 Patient reports bilateral inner thigh numbness and tingling. No weakness. No urine incontinen ce symptoms. Trial of Gabapentin discussed. Uncontroll ed type 2 diabetes mellitus 341869875 E11.65 Recently increased the Glipizide dose. Previously [...] oral hydration discussed. Benign ess ential hypertension 2513010 I10 Blood pressure improved overall. Lost insurance in 2013. Was off his medication s. No CP/SOB/CUEVAS . Recommende d to continue to work on diet, exercise, and lowering salt intake. Recently started Lisinopril (but will hold off on Chlorthali done). [id number] PRABHU Mauricio-CALEB , [facility], OFFICE [address] [place] [address] 05/31/2016 15:55:20 05/31/2016 16:50:42 Active or passive immunization [id number] Z23 Diarrhea [id number] R19.7 possibly secondary to surgery, poor historian, symptoms worsening in last 2 weeks. labs as ordered below. advised follow up within 4-7 days. Dysuria [id number] R30.0 UA labs consistent with poorly controlled DM. culture pending. follow up with PCP, if symptoms worsen be seen. Uncontroll ed type 2 diabetes mellitus [id number] E11.65 reviewed importance of blood sugar control. pt to follow up with pcp. [id number] , [facility], [address] [place] [address] 06/06/2016 09:54:11 06/06/2016 10:24:25 Diarrhea 85077802 R19.7 possible s/e of metformin, change ir to ER, follow up in 2 weeks. Uncontroll ed type 2 diabetes mellitus [id number] E11.65 possible metformin contributi ng to diarrhea, change to ER. monitor diarrhea, follow up in 2 weeks for disease management re diarrhea and blood sugar. Shoulder pain 96392497 M 25.512 subscapula r pain consistent with muscle strain. continue with supportive measures. [id number] Kyra Mauro, DRY CELL SEALER-CALEB [facility], [address]ICE [address] [place] [address] 06/22/2016 11:10:57 06/24/2016 09:39:47 Shoulder joint pain [id number] M25.519 right sub scapular muscle spasm, pt notes weakness in right shoulder suggestive of rotator cuff involvemen t, but no focal weakness on exam , muscle tension noted. refer for PT, apply heat, follow up for failure to resolve. Diabetes mellitus [id number] E11.9 fasting sugar elevated, referral to DNE consider victoza or insulin. [id number] Julieta Barrett RN, BSN, [facility] DM Education , [facility] [address] [place] [address] 07/04/2016 07:51:58 07/08/2016 09:50:09 Uncontrolled type 2 diabetes mellitus [id number] E11.65 Met with Greg today for Type 2 diabetes, kindly referred by Kyra Mauro, STEPHANIE. Greg is accompanie d by his daughter, who helps to translate for him. He is Israeli speaking. His daughter reports she lives with [...] Delong Member ID Guarantor Name 05/03/2016 1 [facility] - DIRECT CONNECTORCARE TYPE II (HMO) Greg Land [id number] Greg Emery 05/31/2016 1 [facility] - DIRECT CONNECTORCARE TYPE II (HMO) Greg Land [id number] 1 Gregnicho Land 06/06/2016 1 [facility] - DIRECT CONNECTORCARE TYPE II (HMO) Greg Land [id number] [address] [facility] Land 06/22/2016 1 [facility] - DIRECT CONNECTORCARE TYPE II (HMO) Greg Land [id number] [address] [facility] Land 07/04/2016 1 [facility] - DIRECT CONNECTORCARE TYPE II (HMO) Gregnicho Enriquezo [id number] [address] [facility] Land Notes Date Note Type Note Provider [...] undergone laparoscopic cholecystectomy in 02/2016. Went to [facility] ER 3 weeks ago due to CP. His CXR, CBC, Troponin and CMP all within normal, except for elevated BS. No recurring symptoms since. Robles Isaac MD [address] [place] [address], [phone], [facility] 05/03/2016 23:18:53 05/31/2016 text/html pt presents with [...] procedure. diarrhea worse. no fever. Kyra Mauro [address], [address], [facility] 06/05/2016 16:26:27 06/06/2016 text/html back pain, start [...] may be related to metformin. Kyra Mauro, [address], [address], [facility] 06/06/2016 10:22:13 06/22/2016 text/html pt has pain in b ack to front around shoulder pain is interfering with ability to sleep.pain lasts all day.feels as if the shoulder falls asleep and drops. Kyra Mauro [address], [address], [facility] 06/22/2016 11:34:50 07/04/2016 text/html Diabetes Self Management History & IntakeReported bypatient.Patient HistoryPatient chief complaint today:Needs help interpreting blood sugars; has a family history of diabetes; Completed Diabetes Self-Assessment Form received, reviewed and sent for chart upload. Present at Visit:automobile brakes bonder (language)Israeli; patient's child (Daughter helped interpret appt.) Recent [...] Pt. Intake Form) Julieta Barrett RN, BSN, [address], [address], [facility] 07/04/2016 16:03:29
--- OUTSIDE RECORDS SUMMARY | 2024-10-30 10:37 | XMS_ITS | Encounter Summary ---
Author Organization [employer] Address [address] [facility] [address]t [place] [address] Care Team Providers Care Laminating Machine Feeder Name Role Phone Carolina Siddiqi MD Primary Care Provide r Reason for Visit * Reason Comments chronic conditions Encounter Details Date Type Department Care Team (Latest Contact Info) Description 10/01/2024 10:00 AM EST Office Visit [facility] MEDICINE [address] [place] [address] Carolina Siddiqi MD [address] [place], [place] [phone] COVID-19 (Primary Dx); Rhinitis, unspecified type; Both [...] hyperglycemia, without long-term current use of insulin ([facility]) HTN (hypertension) Bilateral hearing loss Depressive state Loneliness Colon cancer screening Unstable gait Verruca Onycholysis Coronary artery disease of [place] artery of [place] heart with stable angina pectoris ([facility]) Acute systolic congestive heart failure ([facility]) Chronic systolic congestive heart failure ([facility]) GERD (gastroesophageal reflux disease) Dysphagia Nausea Skin lesion History of cardiac catheterization Ischemic cardiomyopathy NSTEMI (non-ST elevated myocardial infarction) ([facility]) Acute HFrEF (heart failure with reduced ejection fraction) ([facility]) Encounter for preventive care Chronic pain of right knee Cricopharyngeal achalasia COVID-19 Rhinitis Both eyes affected by mild nonproliferative diabetic retinopathy with macular edema, associated with type 2 diabetes mellitus ([facility]) No family history on file. Review [...] at bedtime. Blood Glucose Monitoring Suppl (FreeStyle [place] Lite) w/Device kit Use to test blood [...] Description 12/10/2024 9:15 AM EDT Office Visit [facility] MED[facility] [address] [place] [address] Carolina Siddiqi MD [address] [place] [address] documented as of this encounter Goals Goal [...] Rapid Covid-19 BinaxNOW (10/01/2024 10:34 AM EST) [facility] Signature Rapid COVID Ag Positive QC Media Lot # [id number] Lot# Expiration Date [id number] Swab 10/01/2024 10:3 4 AM EST Carolina [...] documented as of this encounter Care Teams Laminating Machine Feeder Relationship Specialty Start Date End Date Carolina Siddiqi MD [address] [place] [address] PCP - General Internal Medicine 07/11/23 Jolie Thompson Community Health Worker Case Management 02/14/24 documented as of this encounter
--- OUTSIDE RECORDS SUMMARY | 2024-10-30 10:37 | XMS_ITS | Encounter Summary ---
Author Organization [employer] Address [address] [facility] [address]t [place] [address] Care Team Providers Care Screener Operator Name Role Phone Craolina Siddiqi MD Primary Care Provide r Encounter Details Date Type Department Care Team ([facility] st Contact Info) Description 02/23/2024 Orders Only [facility] [address] [place] [address] Yeimi Saenz MD [address] [place] [address] Social History Tobacco Use Types Packs/Day Years [...] 12/10/2024 9:15 AM EDT Office Visit [facility] [address] [place] [address] Carolina Siddiqi MD [address] [place] [address] documented as of this encounter Visit Diagnoses Not on filedocumented in this encounter Additional Health Concerns Assessment Noted Time PHQ-9 Depression Total Score: 23 023 10:38 AM EDT documented as of this encounter Care Teams Screener Operator Relationship Specialty Start Date End Date Carolina Siddiqi MD [address] [place] [address] PCP - General Internal Medicine 07/11/23 Jolie Thompson Community Health Worker Case Management 02/14/24 documented as of this encounter
--- OUTSIDE RECORDS SUMMARY | 2024-10-30 10:37 | XMS_ITS | Encounter Summary ---
Author Organization [email or web address] Address [address] [facility] [address] [place] [address] Care Team Providers Care Analog Design Engineer Name Role Phone Carolina Siddiqi MD Primary Care Provide r Encounter Details Date Type Department Care Team ([facility] st Contact Info) Description 07/19/2024 Orders Only [facility] MEDICINE [address] [place] [address] Carolina Siddiqi MD [address] [place] [address] Social History Tobacco Use Types Packs/Day Years [...] Description 12/10/2024 9:15 AM EDT Office Visit [facility] MED[facility] [address] [place] [address] Carolina Siddiqi MD [address] [place] [address] documented as of this encounter Goals Goal [...] documented as of this encounter Care Teams Analog Design Engineer Relationship Specialty Start Date End Date Carolina Siddiqi MD [address] [place] [address] PCP - General Internal Medicine 07/11/23 Jolie Thompson Community Health Worker Case Management 02/14/24 documented as of this encounter
--- OUTSIDE RECORDS SUMMARY | 2024-10-30 10:37 | XMS_ITS | Encounter Summary ---
Author Organization [employer] Address [address] [facility] [address] [place] [address] Care Team Providers Care Interactive Designer Name Role Phone Carolina Siddiqi MD Primary Care Provide r Encounter Details Date Type Department Care Team (Late st Contact Info) Description 10/24/2024 Orders Only [facility] External Provider, [facility] Social History Tobacco Use Types Packs/Day Years [...] t he electric, gas, oil or water [employer] threatened to shut off services in your [...] Upcoming Encounters Date Type Department Care Team ([facility] st Contact Info) Description 12/10/2024 9:15 AM EDT Office Visit [facility] MED[facility] [address] [place] [address] Carolina Siddiqi MD [address] [place] [address] documented as of this encounter Goals Goal Patient Goal Type Associated Problems Recent Progress Patient-Stated? Author Blood Pressure < 140/90 Blood Pressure 111/66(2024 10:08 AM EST) No Ivana Puente PharmD Take your medication every day Lifestyle No Ivana Punete PharmD Hemoglobin A1c < 7 Result Component 6.5( 2:27 PM EDT) No Ivana Puente PharmD documented as of this encounter Procedures Procedure Name Priority Date/Time Associated Diagnosis Comments US ABDOMEN LIMITED Routine 10/25/2024 6: 12 AM EST documented in this encounter Results * US Abdomen Limited (10/25/2024 6:12 AM EST) Anatomical Region Laterality Modality Abdomen Ultrasound 10/25/2024 6:12 AM EST Narrative 10/25/2024 6:14 AM EST ? [facility] ?[address] ?[place] [address] ? Ultrasound Report ? Signed ? Patient: Land,Greg ?MR#: [id number] ?? [id number] ? : 1960 ?Acct:[id number] ? Age/Sex: 64 / M ?ADM Date: 10/24/24 ? Loc: HO.US ? Attending Dr: Glenda DOBSONP-BC ? Ordering Physician: Glenda Rosa BOX OFFICE ATTENDANT-BC ?? Date of Service: 10/24/24 ?? Procedure(s): US abdomen limited ?? Accession Number(s): [id number] ? cc: Carolina Siddiqi MD; Glenda Rosa BOX OFFICE ATTENDANT-BC ? CLINICAL HISTORY: K42.9 - Umbilical hernia without obstruction or gangrene ? US abdomen limited ? Comparison: None ? Findings: ?? The ventral abdominal wall were scanned. ?? There is no focal abdominal wall defect or hernia. ?? There are no cystic or solid masses and no pathological appearing lymph ?? nodes. ? IMPRESSION: ?? Unremarkable limited abdominal ultrasound. ? This document has been electronically signed by: Jorge Salter MD on ?? 10/25/2024 06:12:47 ? Dictated By: ?Jorge Salter MD ? Signed By: ?<Electronically signed by Jorge Salter MD in OV> ?10/25/24 0613 ? DD/ 1 ? TD/TT: 10/25/24611 ? Fire Control Officer: ? Procedure Note Deven Isaac - 10/25/2024 [place] [id number] Ultrasound Report Signed Patient: Rosita Land#: [id number] : 9Acct:[id number] Age/Sex: 64 / MADM Date: 10/24/24 Loc: HO.US Attending Dr: Glenda NICHOLSON Ordering Physician: Glenda Rosa Date of Service: 10/24/24 Procedure(s): US abdomen limited Accession Number(s): [id number] cc: Carolina Siddiqi MD; Glenda Rosa CLINICAL HISTORY: K42.9 - Umbilical hernia without obstruction or gangrene US abdomen limited Comparison: None Findings: The ventral abdominal wall were scanned. There is no focal abdominal wall defect or hernia. There are no cystic or solid masses and no pathological appearing lymph nodes. IMPRESSION: Unremarkable limited abdominal ultrasound. This document has been electronically signed by: Jorge Salter MD on 10/25/2024 06:12:47 Dictated By: Jorge Salter MD Signed By: <Electronically signed by Jorge Salter MD in OV> 10/25/24612 DD/ 1 TD/TT: 10/25/24611 Fire Control Officer: [facility] External Provider IMG US PROCEDURES Final Result documented in this encounter Visit Diagnoses Not on filedocumented in this encounter Additional Health Concerns Assessment Noted Time PHQ-9 Depression Total Score: 10 02/25/ 024 10:07 AM EDT documented as of this encounter Care Teams Interactive Designer Relationship Specialty Start Date End Date Carolina Siddiqi MD [address] [place] [address] PCP - General Internal Medicine 07/11/23 Jolie Thompson Community Health Worker Case Management 02/14/24 documented as of this encounter
--- OUTSIDE RECORDS SUMMARY | 2024-10-30 10:37 | XMS_ITS | Encounter Summary ---
Author Organization [employer] Address [address] [facility] [address] [place] [address] Care Team Providers Care Student Support Counselor Name Role Phone Carolina Siddiqi MD Primary [...] 9:15 AM EDT Office Visit [facility] [address] [place], [place] [phone] Carolina Siddiqi MD [address] [place] [address] documented as of this encounter Goals Goal [...] documented as of this encounter Care Teams Student Support Counselor Relationship Specialty Start Date End Date Carolina Siddiqi MD [address] [place], [place] [phone] PCP - General Internal Medicine 07/11/23 Jolie Thompson Community Health Worker Case Management 02/14/24 documented as of this encounter
--- OUTSIDE RECORDS SUMMARY | 2024-10-30 10:37 | XMS_ITS | Clinical Summary ---
Author Organization [employer] Address [address] [facility] [address] [place] [address] Care Team Providers Care Supervisor Phosphoric Acid Name Role Phone Carolina Siddiqi MD Primary [...] hyperglycemia, without long-term current use of insulin ([facility]) Use to test blood sugar 2 times daily 100 each 12 024 2024 Active Blood Glucose Monitoring Suppl (FreeStyle [place] Lite) w/Device kitIndications:Ty pe 2 diabetes mellitus with hyperglycemia, without long-term current use of insulin ([facility]) Use to test blood sugar 2 times daily 1 kit Active sacubitril-valsar stoddard (Entresto) 97-103 MG tabletIndications :Primary hypertension,End User Support Specialist nilam systolic congestive heart failure ([facility]) Take 1 tablet by mouth 2 times daily. 60 tablet 12 024 2024 Active TRUEplus Lancets 33G miscIndications:T ype 2 diabetes mellitus with hyperglycemia, without long-term current use of insulin ([facility]) USE DIRECTED TO TEST BLOOD SUGAR EVERY DAY 100 each 11 Active glucose blood (FREESTYLE LITE) test stripIndications: Type 2 diabetes mellitus with hyperglycemia, without long-term current use of insulin ([facility]) USE DIRECTED TO TEST BLOOD SUGAR ONCE DAILY 100 each 11 Active Trulicity 0.75 MG/0.5ML solution auto-injector Inject 0.75 mg as directed 1 (one) time per week. Active Blood Glucose Monitoring Suppl (ONE TOUCH ULTRA 2) w/Device kit Use to check BS twice daily as directed 1 kit Active glucose blood (OneTouch Ultra Test) test strip Use to check BS twice daily as directed 100 each 12 024 2024 Active Alcohol Swabs (Alcohol Prep) 70 % padsIndications:T ype 2 diabetes mellitus with hyperglycemia, without long-term current use of insulin ([facility]) USE DIRECTED TO TEST BLOOD SUGAR TWICE DAILY 100 each 3 025 Active fluticasone (Flonase) 50 MCG/ACT nasal sprayIndications: Rhinitis, unspecified type Administer 1-2 sprays into each nostril Once per day. Shake gently. Before first use, prime pump. After use, clean tip and replace cap. 16 g 025 2025 Active Lancets (OneTouch Delica Plus [id number]) miscIndications:T ype 2 diabetes mellitus with hyperglycemia, without long-term current use of insulin ([facility]) USE TO TEST BLOOD SUGAR TWICE DAILY DIRECTED 100 each 5 025 Active OneTouch Delica Lancets 33G misc Use to check BS twice daily as directed 100 each 024 2024 Discontinued acetaminophen (Tylenol Extra Strength) 500 MG tabletIndications :COVID-19 Take 2 tablets (1,000 mg) by mouth every 8 (eight) hours if needed for mild pain, moderate pain, headaches or fever for up to 10 days. 30 tablet 025 2024 Active Problems Problem Noted Date Diagnosed Date COVID-19 10/01/2024 Assessment & Plan (10/01/2024 12:31 PM EST): I advise to drink plenty of water and rest Acetaminophen PRN Flovent once a day Quarantine as per CDC guidelines If worsening symptoms SOB, chest pain, confusion, he was instructed to call 911 or got to the emergency room TOMÁSButch Chamberlain could not be prescribe due to [...] artery disease of n ative artery of [place] heart with stable angina pectoris 01/26/2024 Overview (01/26/2024): C.Cath on 12/21/23 at [facility]: Severe LAD disease + D1 stenosis--> had PCI/drug eluting stent. Also showed 60 % stenosis in mid RCA + Severe diffuse disease in the left PDA--> med management Assessment & Plan (02/26/2024 12:16 PM EDT): C.Cath on 12/21/23 at [facility]: Severe LAD disease + D1 stenosis--> had [...] in the context of medical issues, early alf, adjusting to living alone and language barrier. [...] stage. ?? PLAN: 1. Follow up with [facility]: Not recommended for follow-up 2. Patient goal is to improve health 3. Behavioral Recommendations a. Comply with medical recommendations b. Begin incorporating healthy changes in daily life c. May utilize [facility] and/or hotline, if symptoms worsen d. May reach out to [facility] for additional support Assessment & Plan (07/11/2023 1:04 PM EDT): N call counseling done, he declines for now [...] Encounters Date Type Department Care Team Description 10/25/2024 Refill [facility] MED & PEDS [address] [place] [address] Carolina Siddiqi MD Type 2 diabetes mellitus with hyperglycemia, without long-term current use of insulin ([facility]) 10/24/2024 Orders Only [facility] External Provider, [facility] 10/01/2024 10:00 AM EST Office Visit [facility] MEDICINE [address] [place] [address] Carolina Siddiqi MD COVID-19 (Primary Dx); Rhinitis, unspecified type; Both eyes affected by mild nonproliferative diabetic retinopathy with macular edema, associated with type 2 diabetes mellitus ([facility]); Chronic systolic congestive heart failure ([facility]) 10/01/2024 Travel 09/19/2024 Patient Outreach [facility] MED[facility]INE [address] [place] [address] Carolina Siddiqi MD Pre-visit Planning ([facility] screening completed on 12/31/2024) 09/13/2024 Orders Only GENERIC EXTERNAL DATA DEPARTMENT Provider, Generic External Data 09/12/2024 Refill [facility] [address] [place] [address] Carolina Siddiqi MD Type 2 diabetes mellitus with hyperglycemia, without long-term current use of insulin ([facility]) 08/22/[address] [address] Carolina Siddiqi MD 08/21/[address] [address] Heike Schaefer, RN Results 08/21/2024 Orders Only [address] [address] Carolina Siddiqi MD Cricopharyngeal achalasia (Primary Dx) from Last 3 Months Immunizations Name Administration [...] Description 12/10/2024 9:15 AM EDT Office Visit [facility] MEDICINE [address] [place] [address] Carolina Siddiqi MD [address] [place] [address] Health Maintenance Due Date Last Done Comments [...] Additional history exists Eye Exam 01/16/2025 01/17/2024, 05/0 04/2024, 01/17/2024, Additional history exists Depression Screening [...] LIMITED Routine 10/25/2024 6: 12 AM EST POCT RAPID COVID ANTIGEN Routine 10/01/2024 10:34 [...] Recently Relevant to Health Maintenance Results * US Abdomen Limited (10/25/2024 6:12 AM EST) Anatomical Region Laterality Modality Abdomen Ultrasound 10/25/2024 6:12 AM EST Narrative 10/25/2024 6:14 AM EST ? [facility] ?[address] ?[place] [address] ? Ultrasound Report ? Signed ? Patient: Greg Land ?MR#: [id number] ?? [id number] ? : 1960 ?Acct:[id number] ? Age/Sex: 64 / M ?ADM Date: 10/24/24 ? Loc: HO.US ? Attending Dr: Glenda NICHOLSON ? Ordering Physician: Glenda Rosa ?? Date of Service: 10/24/24 ?? Procedure(s): US abdomen limited ?? Accession Number(s): [id number] ? cc: Carolina Siddiqi MD; Glenda Rosa ? CLINICAL HISTORY: K42.9 - Umbilical hernia [...] MD in OV> ?10/25/24 0613 ? DD/ 0612 ? TD/TT: 10/25/24 0612 ? Fusing Furnace Loader: ? Procedure Note Marlin, Deven - 10/25/[address] [address] Ultrasound Report Signed Patient: Rosita Land#: [id number] : 9Acct:[id number] Age/Sex: 64 / MADM Date: 10/24/24 Loc: HO.US Attending Dr: Glenda Rosa [facility] Ordering Physician: Glenda Rosa [facility] Date of Service: 10/24/24 Procedure(s): US abdomen limited Accession Number(s): [id number] cc: Carolina Siddiqi MD; Glenda Rosa [facility] CLINICAL HISTORY: K42.9 - Umbilical hernia without [...] in OV> 10/25/246[address] DD/ 1 TD/TT: 10/25/24611 Fusing Furnace Loader: [facility] External Provider IMG US PROCEDURES Final Result * (ABNORMAL) POCT Rapid Covid-19 BinaxNOW (10/01/2024 10:34 AM EST) [facility] Rapid COVID Ag Positive QC Media Lot # [id number] Lot# Expiration Date [id number] Swab 10/01/2024 10:3 4 AM EST Carolina Mahajan MD POINT OF CARE TEST EN TER/EDIT ORDERABLES Final Result * Hepatic Function Panel (09/13/2024 9:46 AM EST) [facility] Bilirubin, Total 0.7 0.0 - 1.0 mg/dL [facility] Bilirubin, Direct 0.2 0.0 - 0.5 mg/dL [facility] Aspartate Amino Transferase 23 5 - 37 U/L [facility] Alanine Aminotransferase 19 0 - 40 U/L [facility] Total Protein 7.2 6.5 - 8.0 g/dL [facility] Albumin Level 4.1 3.5 - 5.0 g/dL [facility] Alkaline Phosphatase 92 39 - 117 U/L [facility] Blood Venous blood specimen / Unknown 09/13/2024 9:46 AM EST 09/13/2024 9:46 AM EST us Carolina Mahajan MD LAB BLOOD ORDERABLES Final Result [facility] [address] [place] [phone] * Lipid Panel, Standard (09/13/2024 9:46 AM EST) Triglycerides 73 <150 mg/dL [facility] Comment:Desirable Triglyceri de: less than 150 mg/dLBorderline High Triglyceride 150-199 mg/dLHigh Triglyceride: 200-499 mg/dLVery High Triglyceride: greater than or equal to 5OO mg/dL Cholesterol 113 <200 mg/dL [facility] Comment:Desirable Cholestero l: less than 200 mg/dLBorderline High Cholesterol: 200-239 mg/dLHigh Cholesterol: greater than 239 mg/dL LDL Cholesterol Calculated 47 <100 mg/dL [facility] Comment:Desirable LDL: less than 100 mg/dLNear Optimal/Above Optimal LDL: 110- 129 mg/dLBorderline High LDL: 130-159 mg/dLHigh LDL: 160-189 mg/dLVery High LDL: greater than or equal to 190 mg/dL HDL Cholesterol 52 >40 mg/dL [facility] Comment:Desirable HDL: great er than 40 mg/dL Note: This HDL assay may give artificially low results in patients with liver disease. 09/13/2024 9:46 AM EST 09/13/2024 9:46 AM EST us Generic External Data Provider LAB BLOOD ORDERAB LES Final Result Performing Organization Address [facility] Co de Phone Number [facility] [address] [place] [phone] * (ABNORMAL) Basic Metabolic Panel (09/13/2024 9:46 AM EST) Sodium 145 135 - 145 mmol/L [facility] Potassium 4.8 3.3 - 5.1 mmol/L [facility] Chloride 114(H) 96 - 108 mmol/L [facility] Carbon Dioxide 27 22 - 29 mmol/L [facility] Anion Gap 9(L) 12 - 20 [facility] Urea Nitrogen (BUN) 14 9 - 16 mg/dL [facility] Creatinine, Serum 1.77(H) 0.5 - 1.4 mg/dL [facility] Estimated Glomerular Filt Rate 39 [facility] Comment:Chronic Kidney Disea se: Estimated GFR < 60 mL/min/1.85w6Ktzbih Kidney Disease: Estimated GFR < 15 mL/min/1.73m2 Glucose 126(H) 60 - 115 mg/dL [facility] Calcium 9.1 8.4 - 10.2 mg/dL [facility] 09/13/2024 9:46 AM EST 09/13/2024 9:46 AM EST Generic External Data Provider LAB BLOOD ORDERAB LES Final Result Performing Organization Address [facility] Co de Phone Number [facility] [address] [place] [phone] * ECG 12 lead (08/19/2024 3:37 PM EST) Narrative Jenniffer Rousseau MD - 08/19/2024 3:37 PM EST Sinus rhythm, rate: 67bpm Left axis deviation Abnormal ECG [facility] ECG ORDERABLES Final Res ult * (ABNORMAL) POCT HGB A1C (07/01/2024 2:27 PM EDT) Hemoglobin A1C 6.5(A) 4.0 - 6.0 % QC Media Lot # [id number] Lot# Expiration Date [id number] Blood 07/01/2024 2:27 PM EDT Carolina Mahajan MD POINT OF CARE TEST EN TER/EDIT ORDERABLES Final Result * Cologuard?? colon cancer screening (09/27/2023 8:35 AM EST) Cologuard Result Negative Negative 10/06/19 5:26 PM EST [facility] (CLIA #:[id number]) Comment: NEGATIVE TEST RESULT. A negative Cologuard [...] cancer. ??Following a negative Cologuard result, the [place] [employer] and U.S. Multi-Society Task Force screening guidelines recommend a Cologuard re-screening interval of 3 years. References: [place] [employer] Guideline for Colorectal Cancer Screening: https://www.cancer.org/cancer/teqak-pwsnoc-crtoid/glhodnafu-hlaqxwyce-flibdfy/ac s-rec ommendations.html.; Kvng FINNEY, Rose HAYNES, Alaina GRIFFIN, Colorectal Cancer Screening: Recommendations for Physicians and Patients from the U.S. Multi-Society Task Force on Colorectal Cancer Screening , Am J Gastroenterology 2017; 112:3394-5294. TEST DESCRIPTION: Composite algorithmic analysis of stool [...] (Anamaria Morgan al, N Engl J Med 2014;370(14):6882-7531.) Cologuard may produce a false negative or false positive result (no colorectal cancer or precancerous polyp present at colonoscopy follow up). A negative Cologuard test result does not guarantee the absence of CRC or advanced adenoma (pre-cancer). The current Cologuard screening interval is every 3 years. ([place] [employer] and U.S. Multi-Society Task Force). Cologuard performance data in a 10,000 patient pivotal study using colonoscopy as the reference method can be accessed at the following location: www.[facility]/results. Additional description of the Cologuard test process, warnings and precautions can be found at www.[employer] Stool specimen (specimen) 09/27/2023 8:35 AM EST 09/28/2023 3:50 PM EST Carolina Mahajan MD LAB MOLECULAR DIAGNOS TICS ORDERABLES Final Result [facility] (CLIA #:[id number]) [place] [address], [place] [phone] from Last 3 Months or Most Recently Relevant to Health Maintenance Insurance [employer] PPO Care Teams Supervisor Phosphoric Acid Relationship Specialty Start Date End Date Carolina Siddiqi MD [address] [place] [phone] PCP - General Internal Medicine 07/11/23 Jolie Thompson Community Health Worker Case Management 02/14/24
--- OUTSIDE RECORDS SUMMARY | 2024-10-30 10:37 | XMS_ITS | Encounter Summary ---
Author Organization [employer] Address [address] [facility] [address] [place] [address] Care Team Providers Care Senior Marketing Analyst Name Role Phone Carolina Siddiqi MD Primary Care Provide r Reason for Visit * Reason Comments Med Refill Encounter Details Date Type Department Care Team ([facility] st Contact Info) Description 10/25/2024 Refill [facility] CHC MED & PEDS [address] [place] [address] Carolina Siddiqi MD [address] [place] [address] Type 2 diabetes mellitus with hyperglycemia, without long-term current use of insulin ([facility]) Social History Tobacco Use Types [...] Description 12/10/2024 9:15 AM EDT Office Visit [facility] MEDICINE [address] [place] [phone] Carolina Siddiqi MD [address] [place] [address] documented as of this encounter Goals Goal Patient Goal Type Associated Problems Recent Progress Patient-Stated? Author Blood Pressure < 140/90 Blood Pressure 111/66(2024 10:08 AM EST) No Ivana Puente, PharmD Take your medication every day Lifestyle No Ivana Puente, PharmD Hemoglobin A1c < 7 Result Component 6.5( 2:27 PM EDT) No Ivana Puente PharmD documented as of this encounter Visit Diagnoses Diagnosis Type 2 diabetes mellitus with hyperglycemia, without long-term current use of insulin ([facility]) documented in this encounter Additional Health Concerns Assessment Noted Time PHQ-9 Depression Total Score: 10 024 10:07 AM EDT documented as of this encounter Care Teams Senior Marketing Analyst Relationship Specialty Start Date End Date Carolina Siddiqi MD [address] [place] [address] PCP - General Internal Medicine 07/11/23 Jolie Thompson Community Health Worker Case Management 02/14/24 documented as of this encounter
== END 2024-10-30 10:08 | disposition home or self-care (01) ==
LOC: HO.XRAY 10:07
PROVIDERS: PCP Internal Medicine; Visit Provider Nurse Practitioner Family
DX: Z13.89 Encounter for screening for other disorder (principal)

== ENCOUNTER 2024-11-06 09:39 | Outpatient (REF) | payer OTHER, SELFPAY ==
--- NOTE | ~2024-11-06 | US_ITS ---
EXAMINATION: US KIDNEY BILATERAL HISTORY: N18.9 - Chronic kidney disease, unspecified TECHNIQUE: Real-time grayscale ultrasound imaging of the kidneys was performed and images were reviewed. COMPARISON: There are no prior studies for comparison. FINDINGS: Right kidney: The right kidney measures 10.1 x 4.6 x 5.1 cm. Renal parenchymal echotexture and thickness are normal. There are no masses. There is no hydronephrosis or renal calculi. Left Kidney: The left kidney measures 9.9 x 4.7 x 4.8 cm. There is a 3 mm cortical calcification at the lower pole. Renal parenchymal echotexture and thickness are otherwise normal. There are no masses. There is no hydronephrosis or renal calculi. US/US renal BI IMPRESSION: 3 mm left renal cortical calcification. Otherwise unremarkable renal ultrasound. Electronically signed by: Montana Holland MD 11/06/2024 10:55 AM [facility]
--- OUTSIDE RECORDS SUMMARY | 2024-11-06 11:06 | XMS_ITS | Clinical Summary ---
Author Organization [employer] Address [address] [facility] [place] [address] Care Team Providers Care Production Maintenance Mechanic Name Role Phone Carolina Siddiqi MD Primary [...] hyperglycemia, without long-term current use of insulin ([facility]) Use to test blood sugar 2 times daily 100 each 12 024 2024 Active Blood Glucose Monitoring Suppl (FreeStyle Oden Lite) w/Device kitIndications:Ty pe 2 diabetes mellitus with hyperglycemia, without long-term current use of insulin ([facility]) Use to test blood sugar 2 times daily 1 kit Active sacubitril-valsar stoddard (Entresto) 97-103 MG tabletIndications :Primary hypertension,Charge Authorizer nilam systolic congestive heart failure ([facility]) Take 1 tablet by mouth 2 times daily. 60 tablet 12 024 2024 Active TRUEplus Lancets 33G miscIndications:T ype 2 diabetes mellitus with hyperglycemia, without long-term current use of insulin ([facility]) USE DIRECTED TO TEST BLOOD SUGAR EVERY DAY 100 each 11 Active glucose blood (FREESTYLE LITE) test stripIndications: Type 2 diabetes mellitus with hyperglycemia, without long-term current use of insulin ([facility]) USE DIRECTED TO TEST [...] hyperglycemia, without long-term current use of insulin ([facility]) USE DIRECTED TO TEST BLOOD SUGAR TWICE DAILY 100 each 3 025 Active fluticasone (Flonase) 50 MCG/ACT nasal sprayIndications: Rhinitis, unspecified type Administer 1-2 sprays into each nostril Once per day. Shake gently. Before first use, prime pump. After use, clean tip and replace cap. 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 [...] Type Department Care Team Description 10/25/2024 Refill [facility] [address] [place] [address] Carolina Siddiqi MD Type 2 diabetes mellitus with hyperglycemia, without long-term current use of insulin ([facility]) 10/24/2024 Orders Only [facility] External Provider, [facility] 10/01/2024 10:00 AM EST Office Visit [facility] [address] [place] [address] Carolina Siddiqi MD COVID-19 (Primary Dx); Rhinitis, unspecified type; Both eyes affected by mild nonproliferative diabetic retinopathy with macular edema, associated with type 2 diabetes mellitus ([facility]); Chronic systolic congestive heart failure ([facility]) 10/01/2024 Travel 09/19/2024 Patient Outreach [facility] [address] [place] [address] Carolina Siddiqi MD Pre-visit Planning (SDAR screening completed on 12/31/2024) 09/13/2024 Orders Only GENERIC EXTERNAL DATA DEPARTMENT Provider, Generic External Data 09/12/2024 Refill [facility] [address] [place] [address] Carolina Siddiqi MD Type 2 diabetes mellitus with hyperglycemia, without long-term current use of insulin ([facility] 08/22/[address] [address] Carolina Siddiqi MD 08/21/[address] [address] Heike Schaefer, RN Results 08/21/2024 Orders Only [address] [address] Carolina Siddiqi MD Cricopharyngeal achalasia (Primary Dx) [...] Description 12/10/2024 9:15 AM EDT Office Visit [facility] [address] [place] [address] Carolina Siddiqi MD [address] [place] [address] Health Maintenance Due Date Last Done Comments [...] EST Narrative 10/25/2024 6:14 AM EST ? [facility] ?[address] ?[place] [address] ? Ultrasound Report ? Signed ? Patient: Greg Land ?MR#: [id number] ?? [id number] ? : 1960 ?Acct:[id number] ? Age/Sex: 64 / M ?ADM Date: 10/24/24 ? Loc: HO.US ? Attending Dr: Glenda NICHOLSON ? Ordering Physician: Glenda Rosa ?? Date of Service: 10/24/24 ?? Procedure(s): US abdomen limited ?? Accession Number(s): [id number] ? cc: Carolina Siddiqi MD; Glenda Rosa [...] DD/ 0612 ? TD/TT: 10/25/24 0612 ? Eligibility Manager: ? Procedure Note Marlin, Deven - 10/25/[address] [address] Ultrasound Report Signed Patient: Rosita Land#: [id number] : 9Acct:[id number] Age/Sex: 64 / MADM Date: 10/24/24 Loc: HO.US Attending Dr: Glenda Rosa [facility] Ordering Physician: Glenda Rosa [facility] Date of Service: 10/24/24 Procedure(s): US abdomen limited Accession Number(s): [id number] cc: Carolina Siddiqi MD; Glenda Rosa [facility] CLINICAL HISTORY: K42.9 - Umbilical hernia [...] in OV> 10/25/24612 DD/ 1 TD/TT: 10/25/24611 Eligibility Manager: [facility] External Provider IMG US PROCEDURES Final Result * (ABNORMAL) POCT Rapid Covid-19 BinaxNOW (10/01/2024 10:34 AM EST) [facility] Rapid COVID Ag Positive QC Media Lot # [id number] Lot# Expiration Date [id number] Swab 10/01/2024 10:3 4 AM EST Carolina Mahajan MD POINT OF CARE TEST EN TER/EDIT ORDERABLES Final Result * Hepatic Function Panel (09/13/2024 9:46 AM EST) [facility] Bilirubin, Total 0.7 0.0 - 1.0 mg/dL [facility] Bilirubin, Direct 0.2 0.0 - 0.5 mg/dL [facility] Aspartate Amino Transferase 23 5 - 37 U/L [facility] Alanine Aminotransferase 19 0 - 40 U/L [facility] Total Protein 7.2 6.5 - 8.0 g/dL [facility] Albumin Level 4.1 3.5 - 5.0 g/dL [facility] Alkaline Phosphatase 92 39 - 117 U/L [facility] Blood Venous blood specimen / Unknown 09/13/2024 9:46 AM EST 09/13/2024 9:46 AM EST us Carolina Mahajan MD LAB BLOOD ORDERABLES Final Result [facility] [address] [place] [phone] * Lipid Panel, Standard (09/13/2024 9:46 AM EST) Triglycerides 73 <150 mg/dL [facility] Comment:Desirable Triglyceri de: less than 150 mg/dLBorderline High Triglyceride 150-199 mg/dLHigh Triglyceride: 200-499 mg/dLVery High Triglyceride: greater than or equal to 5OO mg/dL Cholesterol 113 <200 mg/dL [facility] Comment:Desirable Cholestero l: less than 200 mg/dLBorderline High Cholesterol: 200-239 mg/dLHigh Cholesterol: greater than 239 mg/dL LDL Cholesterol Calculated 47 <100 mg/dL [facility] Comment:Desirable LDL: less than 100 mg/dLNear Optimal/Above Optimal LDL: 110- 129 mg/dLBorderline High LDL: 130-159 mg/dLHigh LDL: 160-189 mg/dLVery High LDL: greater than or equal to 190 mg/dL HDL Cholesterol 52 >40 mg/dL [facility] Comment:Desirable HDL: great er than 40 mg/dL Note: This HDL assay may give artificially low results in patients with liver disease. 09/13/2024 9:46 AM EST 09/13/2024 9:46 AM EST us Generic External Data Provider LAB BLOOD ORDERAB LES Final Result Performing Organization Address [facility] Co de Phone Number [facility] [address] [place] [phone] * (ABNORMAL) Basic Metabolic Panel (09/13/2024 9:46 AM EST) Sodium 145 135 - 145 mmol/L [facility] Potassium 4.8 3.3 - 5.1 mmol/L [facility] Chloride 114(H) 96 - 108 mmol/L [facility] Carbon Dioxide 27 22 - 29 mmol/L [facility] Anion Gap 9(L) 12 - 20 [facility] Urea Nitrogen (BUN) 14 9 - 16 mg/dL [facility] Creatinine, Serum 1.77(H) 0.5 - 1.4 mg/dL [facility] Estimated Glomerular Filt Rate 39 [facility] Comment:Chronic Kidney Disea se: Estimated GFR < 60 mL/min/[id number] Kidney Disease: Estimated GFR < 15 mL/min/1.73m2 Glucose 126(H) 60 - 115 mg/dL [facility] Calcium 9.1 8.4 - 10.2 mg/dL [facility] 09/13/2024 9:46 AM EST 09/13/2024 9:46 AM EST Generic External Data Provider LAB BLOOD ORDERAB LES Final Result Performing Organization Address [facility] Co de Phone Number [facility] [address] [place] [phone] * ECG 12 lead (08/19/2024 3:37 PM EST) Narrative Jenniffer Rousseau MD - 08/19/2024 3:37 PM EST Sinus rhythm, rate: 67bpm Left axis deviation Abnormal ECG [facility] ECG ORDERABLES Final Res ult * (ABNORMAL) POCT HGB A1C (07/01/2024 2:27 PM EDT) Hemoglobin A1C 6.5(A) 4.0 - 6.0 % QC Media Lot # [id number] Lot# Expiration Date [id number] Blood 07/01/2024 2:27 PM EDT Carolina Mahajan MD POINT OF CARE TEST EN TER/EDIT ORDERABLES Final Result * Cologuard?? colon cancer screening (09/27/2023 8:35 AM EST) Cologuard Result Negative Negative 10/06/19 5:26 PM EST [facility] (CLIA #:[id number]) Comment: NEGATIVE TEST RESULT. A negative Cologuard [...] cancer. ??Following a negative Cologuard result, the [place] [employer] and U.S. Multi-Society Task Force screening guidelines recommend a Cologuard re-screening interval of 3 years. References: [place] [employer] Guideline for Colorectal Cancer Screening: https://www.cancer.org/cancer/mcerf-cdgodl-enygmg/nyymmmfse-zvvtzmiia-kmuogzt/ac s-rec ommendations.html.; Kvng FINNEY, Rose HAYNES, Alaina GRIFFIN, Colorectal Cancer Screening: Recommendations for Physicians and Patients from the U.S. Multi-Society Task Force on Colorectal Cancer Screening , Am J Gastroenterology 2017; 112:4921-9568. TEST DESCRIPTION: Composite algorithmic analysis of stool [...] (Anamaria Morgan al, N Engl J Med 2014;370(14):4669-7913.) Cologuard may produce a false negative or false positive result (no colorectal cancer or precancerous polyp present at colonoscopy follow up). A negative Cologuard test result does not guarantee the absence of CRC or advanced adenoma (pre-cancer). The current Cologuard screening interval is every 3 years. ([place] [employer] and U.S. Multi-Society Task Force). Cologuard performance data in a 10,000 patient pivotal study using colonoscopy as the reference method can be accessed at the following location: www.clipsync/results. Additional description of the Cologuard test process, warnings and precautions can be found at www.[employer]. Stool specimen (specimen) 09/27/2023 8:35 AM EST 09/28/2023 3:50 PM EST Carolina Mahajan MD LAB MOLECULAR DIAGNOS TICS ORDERABLES Final Result [facility] (CLIA #:[id number]) [place] [address], [place] [phone] from Last 3 Months or Most Recently Relevant to Health Maintenance Insurance [employer] PPO Care Teams Production Maintenance Mechanic Relationship Specialty Start Date End Date Carolina Siddiqi MD [address] [place] [phone] PCP - General Internal Medicine 07/11/23 Jolie Thompson Community Health Worker Case Management 02/14/24
--- OUTSIDE RECORDS SUMMARY | 2024-11-06 11:06 | XMS_ITS | Encounter Summary ---
Author Organization [employer] Address [address] [facility] [address] [place] [address] Care Team Providers Care Animal Taxonomist Name Role Phone Carolina Siddiqi MD Primary Care Provide r Encounter Details Date Type Department Care Team ([facility] st Contact Info) Description 02/23/2024 Orders Only [facility] [address] [place] [address] Yeimi Saenz MD [address] [place] [address] Social History Tobacco Use Types Packs/Day Years [...] Description 12/10/2024 9:15 AM EDT Office Visit [facility] [address] [place] [phone] Carolina Siddiqi MD [address] [place] [phone] documented as of this encounter Visit Diagnoses Not on filedocumented in this encounter Additional Health Concerns Assessment Noted Time PHQ-9 Depression Total Score: 23 023 10:38 AM EDT documented as of this encounter Care Teams Animal Taxonomist Relationship Specialty Start Date End Date Carolina Siddiqi MD [address] [place] [phone] PCP - General Internal Medicine 07/11/23 Jolie Thompson Community Health Worker Case Management 02/14/24 documented as of this encounter
--- OUTSIDE RECORDS SUMMARY | 2024-11-06 11:06 | XMS_ITS | Data Portability ---
Author Organization [facility], , [facility] Address [address] [place] [address] Care Team Providers Care Electrical Calibrator Name Role Phone HARRIS BASILIO Internal Medicine ERIC HELLER General Surgeon Assessment No assessment recorded. Plan of Treatment Reminders Order Date Submit Date Provider Last Modified By Organization Details Last Modified Time Details Appointments None recorded. Lab hepatic function panel, serum - add on. 2015 016 [facility], [address] [place] [address], [id number], 6 04:08:03 culture, urine 2015 016 [facility], [address] [place] [address], [id number], 6 04:07:56 Referral diabetes management referral - barbadian speaker with elevated blood sugar, likely needs injectables , please assist with next steps for blood glucose management. 2015 016 Not available 6 04:08:57 physical therapist referral - pt with right scapular pain and some right shoulder pain with movements. please assist with rehabilitat ion 2015 016 [facility], [address] [place] [address], [id number], 6 04:08:57 Procedures None recorded. Surgeries None recorded. Imaging None recorded. Medication Orders metformin ER 1,000 mg tablet,exte nded release 24hr (osmotic) 2015 016 [facility] [address] ([facility]), [address] [place], [id number], 6 04:07:36 glipizide 10 mg tablet 2015 016 [facility] [address] ([facility]), [address] [place], [id number], 6 04:06:44 metformin 1,000 mg tablet 2015 016 [facility] [address] ([facility]), [address] [place], [id number], 6 04:05:56 lisinopril 2.5 mg tablet 2015 016 [facility] [address]41 ([facility]), [address] [place], [id number], 6 04:06:25 gabapentin 300 mg capsule 2015 016 [facility] [address] ([facility]), [address] [place], [id number], 6 04:06:27 Patient TargetsNo targets recorded. Patient Instructions Encounter Date Encounter Id Patient Instructions Last Modified By Organization Details Last Modified Time 05/03/2016 [id number] Spent 25 minutes of [id number] time, of which greater than 50% was in counseling. After a discussion of treatment options, which included consideration of best practices and patient preferences, the above treatment plan and objectives were adopted. [email or web address] Not available 05/03/2016 23:18:31 07/04/2016 [id number] -Start testing blood sugar more often, at [...] Kyra Mauro, Family Medicine, Encounter Date: 06/22/2016 barbadian speaker with elevate d blood sugar, likely needs injectables, please assist with next steps for blood glucose management. Referring Physician: Kyra Mauro Family Medicine, Encounter Date: 06/22/2016 Results Created Date Observation Date Name Description Value Unit Range Abnormal Flag Note LastModifiedBy Organization Detail LastModifiedTime 04/12/20 16 04/12/2016 CBC w/ auto diff WBC 5.8 K/uL 3.4-11 .2 Not Available [address], [address], 04/12/2016 01:57:38 04/12/20 16 04/12/2016 CBC w/ auto diff RBC 4.71 M/uL 4.50-5 .50 Not Available [address], [address], 04/12/2016 01:57:38 04/12/20 16 04/12/2016 CBC w/ auto diff hemoglobin 13.8 g/dL 13.0-1 7.0 Not Available [address], [address], 04/12/2016 01:57:38 04/12/20 16 04/12/2016 CBC w/ auto diff hematocrit 38.1 % 40.0-5 1.0 low Not Available [address], [address], 04/12/2016 01:57:38 04/12/20 16 04/12/2016 CBC w/ auto diff MCV 80.9 fL 79.0-9 8.0 Not Available [address], [address], 04/12/2016 01:57:38 04/12/20 16 04/12/2016 CBC w/ auto diff MCH 29.3 pg 27.0-3 4.8 Not Available [address], [address], 04/12/2016 01:57:38 04/12/20 16 04/12/2016 CBC w/ auto diff MCHC 36.2 g/dL 31.5-3 6.0 high Not Available [address], [address], 04/12/2016 01:57:38 04/12/20 16 04/12/2016 CBC w/ auto diff RDW 12.9 % 10.8-1 4.6 Not Available [address], [address], 04/12/2016 01:57:38 04/12/20 16 04/12/2016 CBC w/ auto diff MPV 10.4 fL 9.4-12 .4 Not Available [address], [address], 04/12/2016 01:57:38 04/12/20 16 04/12/2016 CBC w/ auto diff platelet count 204 K/uL 130-40 0 Not Available [address], [address], 04/12/2016 01:57:38 04/12/20 16 04/12/2016 CBC w/ auto diff neutrophils 49.9 % 45.3-7 7.7 Not Available [address], [address], 04/12/2016 01:57:38 04/12/20 16 04/12/2016 CBC w/ auto diff lymphocytes 35.0 % 12.3-3 9.7 Not Available [address], [address], 04/12/2016 01:57:38 04/12/20 16 04/12/2016 CBC w/ auto diff monocytes 10.8 % 4.1-12 .8 Not Available [address], [address], 04/12/2016 01:57:38 04/12/20 16 04/12/2016 CBC w/ auto diff eosinophils 3.80 % 0.00-7 .20 Not Available [address], [address], 04/12/2016 01:57:38 04/12/20 16 04/12/2016 CBC w/ auto diff basophils 0.30 % 0.00-2 .80 Not Available [address], [address], 04/12/2016 01:57:38 04/12/20 16 04/12/2016 CBC w/ auto diff absolute neutrophil 2.9 K/uL 1.4-7. 7 Not Available [address], [address], 04/12/2016 01:57:38 04/12/20 16 04/12/2016 CBC w/ auto diff absolute lymphocyte 2.0 K/uL 0.6-3. 2 Not Available [address], [address], 04/12/2016 01:57:38 04/12/20 16 04/12/2016 CBC w/ auto diff absolute monocytes 0.6 K/uL 0.1-0. 6 Not Available [address], [address], 04/12/2016 01:57:38 04/12/20 16 04/12/2016 CBC w/ auto diff absolute eosinophil 0.22 K/uL 0.01-0 .50 Not Available [address], [address], 04/12/2016 01:57:38 04/12/20 16 04/12/2016 CBC w/ auto diff absolute basophils 0.02 K/uL Not Available [address], [address], 04/12/2016 01:57:38 04/12/20 16 04/12/2016 CBC w/ auto diff immature granulocyte 0.20 % 0.00-0 .50 Not Available [address], [address], 04/12/2016 01:57:38 04/12/20 16 04/12/2016 CBC w/ auto diff absolute immature granulocyte 0.01 K/uL 0.00-0 .03 Not Available [address], [address], 04/12/2016 01:57:38 04/12/20 16 04/12/2016 tropo lenore T, serum troponin T <0.010 NG/mL 0.000- 0.030 Not Available [address], [address], 04/12/2016 02:21:34 04/12/20 16 04/12/2016 CMP, serum or plasm a glucose 289 mg/dL 70-99 high Not Available [address], [address], 04/12/2016 02:21:35 04/12/20 16 04/12/2016 CMP, serum or plasm a BUN 10 mg/dL 6-19 Not Available [address], [address], 04/12/2016 02:21:35 04/12/2004/12/2016 CMP, serum or plasm a creatinine 0.9 mg/dL 0.5-1. 5 Not Available [address], [address], 04/12/2016 02:21:35 04/12/20 16 04/12/2016 CMP, serum [...] of 18 and 70. Not Available [address], [address], 04/12/2016 02:21:35 04/12/20 16 04/12/2016 CMP, serum or plasm a sodium 137 mEq/L 133-14 6 Not Available [address], [address]484, 04/12/2016 02:21:35 04/12/20 16 04/12/2016 CMP, serum or plasm a potassium 4.1 mEq/L 3.3-5. 1 Not Available [address], [address], 04/12/2016 02:21:35 04/12/20 16 04/12/2016 CMP, serum or plasm a chloride 99 mEq/L 96-108 Not Available [address], [address], 04/12/2016 02:21:35 04/12/20 16 04/12/2016 CMP, serum or plasm a CO2 26 mEq/L 21-35 Not Available [address], [address]992, 04/12/2016 02:21:35 04/12/20 16 04/12/2016 CMP, serum or plasm a calcium 9.4 mg/dL 8.4-10 .3 Not Available [address], [address], 04/12/2016 02:21:35 04/12/20 16 04/12/2016 CMP, serum or plasm a total bilirubin 0.6 mg/dL 0.0-1. 2 Not Available [address], [address], 04/12/2016 02:21:35 04/12/20 16 04/12/2016 CMP, serum or plasm a alkaline phosphatase 87 U/L 39-117 Not Available [address], [address], 04/12/2016 02:21:35 04/12/20 16 04/12/2016 CMP, serum or plasm a AST (SGOT) 13 U/L 0-37 Not Available [address], [address], 04/12/2016 02:21:35 04/12/2004/12/2016 CMP, serum or plasm a ALT (SGPT) 19 U/L 0-40 Not Available [address], [address], 04/12/2016 02:21:35 04/12/2004/12/2016 CMP, serum or plasm a total protein 6.9 g/dL 6.5-8. 0 Not Available [address], [address], 04/12/2016 02:21:35 04/12/20 16 04/12/2016 CMP, serum or plasm a albumin 4.0 g/dL 3.9-4. 8 Not Available [address], [address], 04/12/2016 02:21:35 04/12/2004/12/2016 CMP, serum or plasm a globulin 2.9 gm/dL 1.0-4. 8 Not Available [address], [address], 04/12/2016 02:21:35 04/12/2004/12/2016 CMP, serum or plasm a A/G ratio 1.4 gm/dL 1.0-4. 8 Not Available [address], [address], 04/12/2016 02:21:35 04/12/20 16 04/12/2016 CMP, serum or plasm a anion gap 16 mEq/L 10-20 Not Available [facility] [address] [facility], [place], [address], 04/12/2016 02:21:35 05/31/20 16 05/31/2016 POC UA glu UA 1+ abnormal Not Available [address], [address], 05/31/2016 16:34:04 05/31/20 16 05/31/2016 POC UA clarity UA Slight ly Cloudy Not Available [address], [address], 05/31/2016 16:34:04 05/31/20 16 05/31/2016 POC UA uro UA 1.0000 Not Available [address], [address], 05/31/2016 16:34:04 05/31/20 16 05/31/2016 POC UA ket UA Negati ve Not Available [address], [address], 05/31/2016 16:34:04 05/31/20 16 05/31/2016 POC UA pro UA Trace abnormal Not Available [address], [address], 05/31/2016 16:34:04 05/31/20 16 05/31/2016 POC UA nit UA Negati ve Not Available [address], [address], 05/31/2016 16:34:04 05/31/20 16 05/31/2016 POC UA neida UA Negati ve Not Available [address], [address], 05/31/2016 16:34:04 05/31/20 16 05/31/2016 POC UA pH UA 6.0000 Not Available [address], [address], 05/31/2016 16:34:04 05/31/20 16 05/31/2016 POC UA SG UA >=1.03 00 Not Available [address], [address], 05/31/2016 16:34:04 05/31/20 16 05/31/2016 POC UA color UA Dark yellow Not Available [address], [address], 05/31/2016 16:34:04 05/31/20 16 05/31/2016 POC UA blo UA Negati ve Not Available [address], [address], 05/31/2016 16:34:04 05/31/20 16 05/31/2016 POC UA lisa UA Negati ve Not Available [address], [address], 05/31/2016 16:34:04 05/31/20 16 06/02/2016 cultu re, urine culture, urine, routine CULTU RE, URINE , ROUTI NE MICRO NUMBE R: [id number] TEST STATU S: FINAL SPECI MEN SOURC E: URINE SPECI MEN QUALI TY: ADEQU ATE RESUL T: No Growt h Not Available [facility] [address] [place] [address], [address], 06/02/2016 00:43:22 06/02/20 16 06/02/2016 BMP, serum or plasm a glucose 218 mg/dL 70-100 high Not Available [address], [address], 06/02/2016 11:19:48 06/02/20 16 06/02/2016 BMP, serum or plasm a BUN 8 mg/dL 7-18 Not Available [address], [address], 06/02/2016 11:19:48 06/02/20 16 06/02/2016 BMP, serum or plasm a creatinine 0.9 mg/dL 0.8-1. 3 Not Available [address], [address], 06/02/2016 11:19:48 06/02/20 16 06/02/2016 BMP, serum or plasm a B/C 8.9 ratio Not Available [address], [address], 06/02/2016 11:19:48 06/02/20 16 06/02/2016 BMP, serum or plasm a GFR -non 92.4 mL/mi n Recom marychuy d GFR by the Natio nal Kidne y Found ation >60 mL/mi n/1.7 3m2 - Mariam l <60 mL/mi n/1.7 3m2 - Chron ic Kidne y Disea se <15 mL/mi n/1.7 3m2 - Kidne y Failu re Not Available [address], [address], 06/02/2016 11:19:48 06/02/20 16 06/02/2016 BMP, serum or plasm a GFR - if 111.9 mL/mi n For Afric an Ameri can patie nts: Resul ts Multi plied by 1.21 Not Available [address], [address], 06/02/2016 11:19:48 06/02/20 16 06/02/2016 BMP, serum or plasm a sodium 144 mmol/ L 136-14 5 Not Available [address], [address], 06/02/2016 11:19:48 06/02/20 16 06/02/2016 BMP, serum or plasm a potassium 4.5 mmol/ L 3.5-5. 1 Not Available [address], [address], 06/02/2016 11:19:48 06/02/20 16 06/02/2016 BMP, serum or plasm a chloride 105 mmol/ L 96-107 Not Available [address], [address], 06/02/2016 11:19:48 06/02/20 16 06/02/2016 BMP, serum or plasm a anion gap 10.1 5.0-15 .0 Not Available [address], [address], 06/02/2016 11:19:48 06/02/20 16 06/02/2016 BMP, serum or plasm a CO2 29 mmol/ L 21-32 Not Available [address], [address], 06/02/2016 11:19:48 06/02/20 16 06/02/2016 BMP, serum or plasm a calcium 9.3 mg/dL 8.5-10 .3 Not Available [address], [address], 06/02/2016 11:19:48 06/02/20 16 06/02/2016 lipid panel , serum cholesterol 184 mg/dL <200 mg/dl Jonathon able 200-2 39 mg/dl Borde rline High >240 mg/dl High Not Available [address], [address], 06/02/2016 11:19:49 06/02/2006/02/2016 lipid panel , serum triglyceride s 116 mg/dL <150 mg/dL Mariam l 150-1 99 mg/dL Borde rline High 200-4 99 mg/dL High >500 mg/dL Very High Not Available [address], [address], 06/02/2016 11:19:49 06/02/2006/02/2016 lipid panel , serum direct HDL 45 mg/dL Not Available [address], [address], 06/02/2016 11:19:49 06/02/20 16 06/02/2016 LDL, calcu [...] r is not sergocristel arash. Not Available [address], [address], 06/02/2016 11:19:49 06/02/20 16 06/02/2016 HbA1c (hemo globi n A1c), blood hemoglobin A1C 7.7 % 4.8-6. 0 high Goal: <7% in Patie nts with Diabe brisa Not Available [address], [address], 06/02/2016 11:26:54 06/02/20 16 06/02/2016 HbA1c (hemo globi n A1c), blood estimated average glucose 174.3 mg/dL Not Available [address], [address], 06/02/2016 11:26:54 06/02/20 16 06/02/2016 micro album in, urine microalbumin 19.7 mg/L 1.3-20 .0 Not Available [address], [address], 06/02/2016 12:41:00 06/02/20 16 06/02/2016 micro album in, urine creatinine urine 201.4 mg/dL 30.0-1 25.0 high Not Available [address], [address], 06/02/2016 12:41:00 06/02/20 16 06/02/2016 micro album in, urine microalb/cre at ratio 9.8 mg/g_ creat 0.0-29 .0 Not Available [address], [place], [address], 06/02/2016 12:41:00 03/08/20 17 03/08/2017 urina lysis , refle x cultu re color Yellow Not Available [address], [address], 03/08/2017 21:57:08 03/08/20 17 03/08/2017 urina lysis , refle x cultu re appearance Clear Not Available [address], [address], 03/08/2017 21:57:08 03/08/20 17 03/08/2017 urina lysis , refle x cultu re specific gravity <=1.00 5 1.005- 1.030 Not Available [address], [address], 03/08/2017 21:57:08 03/08/20 17 03/08/2017 urina lysis , refle x cultu re pH 6.0 5.0-7. 0 Not Available [address], [address], 03/08/2017 21:57:08 03/08/20 17 03/08/2017 urina lysis , refle x cultu re protein Negati ve negati ve Not Available [address], [address], 03/08/2017 21:57:08 03/08/20 17 03/08/2017 urina lysis , refle x cultu re glucose 3+ negati ve abnormal Not Available [address], [address], 03/08/2017 21:57:08 03/08/20 17 03/08/2017 urina lysis , refle x cultu re ketones Negati ve negati ve Not Available [address], [address], 03/08/2017 21:57:08 03/08/20 17 03/08/2017 urina lysis , refle x cultu re bilirubin Negati ve negati ve Not Available [address], [address], 03/08/2017 21:57:08 03/08/20 17 03/08/2017 urina lysis , refle x cultu re blood Negati ve negati ve Not Available [address], [address], 03/08/2017 21:57:08 03/08/20 17 03/08/2017 urina lysis , refle x cultu re nitrite Negati ve negati ve Not Available [address], [address], 03/08/2017 21:57:08 03/08/20 17 03/08/2017 urina lysis , refle x cultu re leukocyte esterase Negati ve negati ve Not Available [address], [address], 03/08/2017 21:57:08 03/08/20 17 03/08/2017 CBC w/ auto diff WBC 5.6 K/uL 3.4-11 .2 Not Available [address], [address], 03/08/2017 21:57:30 03/08/20 17 03/08/2017 CBC w/ auto diff RBC 4.86 M/uL 4.50-5 .50 Not Available [address], [address], 03/08/2017 21:57:30 03/08/20 17 03/08/2017 CBC w/ auto diff hemoglobin 14.0 g/dL 13.0-1 7.0 Not Available [address], [address], 03/08/2017 21:57:30 03/08/20 17 03/08/2017 CBC w/ auto diff hematocrit 38.7 % 40.0-5 1.0 low Not Available [address], [address], 03/08/2017 21:57:30 03/08/20 17 03/08/2017 CBC w/ auto diff MCV 79.6 fL 79.0-9 8.0 Not Available [address], [address], 03/08/2017 21:57:30 03/08/20 17 03/08/2017 CBC w/ auto diff MCH 28.8 pg 27.0-3 4.8 Not Available [address], [address], 03/08/2017 21:57:30 03/08/20 17 03/08/2017 CBC w/ auto diff MCHC 36.2 g/dL 31.5-3 6.0 high Not Available [address], [address]79, 03/08/2017 21:57:30 03/08/20 17 03/08/2017 CBC w/ auto diff RDW 12.9 % 10.8-1 4.6 Not Available [address], [address], 03/08/2017 21:57:30 03/08/20 17 03/08/2017 CBC w/ auto diff MPV 10.8 fL 9.4-12 .4 Not Available [address], [address]406, 03/08/2017 21:57:30 03/08/20 17 03/08/2017 CBC w/ auto diff platelet count 207 K/uL 130-40 0 Not Available [address], 90[address], 03/08/2017 21:57:30 03/08/20 17 03/08/2017 CBC w/ auto diff neutrophils 50.8 % 45.3-7 7.7 Not Available [address], [address], 03/08/2017 21:57:30 03/08/20 17 03/08/2017 CBC w/ auto diff lymphocytes 32.9 % 12.3-3 9.7 Not Available [address], [address]23, 03/08/2017 21:57:30 03/08/20 17 03/08/2017 CBC w/ auto diff monocytes 13.2 % 4.1-12 .8 high Not Available [address], [address], 03/08/2017 21:57:30 03/08/20 17 03/08/2017 CBC w/ auto diff eosinophils 2.70 % 0.00-7 .20 Not Available [address], [address], 03/08/2017 21:57:30 03/08/20 17 03/08/2017 CBC w/ auto diff basophils 0.20 % 0.00-2 .80 Not Available [address], [address], 03/08/2017 21:57:30 03/08/20 17 03/08/2017 CBC w/ auto diff absolute neutrophil 2.9 K/uL 1.4-7. 7 Not Available [address], [address]174, 03/08/2017 21:57:30 03/08/20 17 03/08/2017 CBC w/ auto diff absolute lymphocyte 1.8 K/uL 0.6-3. 2 Not Available [address], [address], 03/08/2017 21:57:30 03/08/20 17 03/08/2017 CBC w/ auto diff absolute monocytes 0.7 K/uL 0.1-0. 6 high Not Available [address], [address], 03/08/2017 21:57:30 03/08/20 17 03/08/2017 CBC w/ auto diff absolute eosinophil 0.15 K/uL 0.01-0 .50 Not Available [address], [address], 03/08/2017 21:57:30 03/08/20 17 03/08/2017 CBC w/ auto diff absolute basophils 0.01 K/uL Not Available [address], 82055, 03/08/2017 21:57:30 03/08/20 17 03/08/2017 CBC w/ auto diff immature granulocyte 0.20 % 0.00-0 .50 Not Available [address], 28771, 03/08/2017 21:57:30 03/08/20 17 03/08/2017 CBC w/ auto diff absolute immature granulocyte 0.01 K/uL 0.00-0 .03 Not Available [address], [address]92, 03/08/2017 21:57:30 03/08/20 17 03/08/2017 CMP, serum or plasm a glucose 499 mg/dL 70-99 high Not Available [address], [address], 03/08/2017 22:21:58 03/08/20 17 03/08/2017 CMP, serum or plasm a BUN 6 mg/dL 6-19 Not Available [address], 64[address], 03/08/2017 22:21:58 03/08/20 17 03/08/2017 CMP, serum or plasm a creatinine 1.1 mg/dL 0.5-1. 5 Not Available [address], 79[address], 03/08/2017 22:21:58 03/08/20 17 03/08/2017 CMP, serum [...] of 18 and 70. Not Available [address], 15258, 03/08/2017 22:21:58 03/08/2003/08/2017 CMP, serum or plasm a sodium 136 mEq/L 133-14 6 Not Available [address], [address], 03/08/2017 22:21:58 03/08/20 17 03/08/2017 CMP, serum or plasm a potassium 4.2 mEq/L 3.3-5. 2 Not Available [address], [address]2036, 03/08/2017 22:21:58 03/08/2003/08/2017 CMP, serum or plasm a chloride 98 mEq/L 96-108 Not Available [address], [address]19, 03/08/2017 22:21:58 03/08/2003/08/2017 CMP, serum or plasm a CO2 27 mEq/L 21-35 Not Available [address], 6[address], 03/08/2017 22:21:58 03/08/2003/08/2017 CMP, serum or plasm a calcium 9.4 mg/dL 8.4-10 .3 Not Available [address], 61018, 03/08/2017 22:21:58 03/08/2003/08/2017 CMP, serum or plasm a total bilirubin 0.4 mg/dL 0.0-1. 2 Not Available [address], [address]98, 03/08/2017 22:21:58 03/08/2003/08/2017 CMP, serum or plasm a alkaline phosphatase 115 U/L 39-117 Not Available [address], [address], 03/08/2017 22:21:58 03/08/20 17 03/08/2017 CMP, serum or plasm a AST (SGOT) 11 U/L 0-37 Not Available [address], 80841, 03/08/2017 22:21:58 03/08/20 17 03/08/2017 CMP, serum or plasm a ALT (SGPT) 14 U/L 0-40 Not Available [address], [address]1111, 03/08/2017 22:21:58 03/08/20 17 03/08/2017 CMP, serum or plasm a total protein 7.4 g/dL 6.5-8. 0 Not Available [address], [address], 03/08/2017 22:21:58 03/08/20 17 03/08/2017 CMP, serum or plasm a albumin 4.1 g/dL 3.9-4. 8 Not Available [address], [address]3852, 03/08/2017 22:21:58 03/08/20 17 03/08/2017 CMP, serum or plasm a globulin 3.3 gm/dL 1.0-4. 8 Not Available [address], 47449, 03/08/2017 22:21:58 03/08/20 17 03/08/2017 CMP, serum or plasm a A/G ratio 1.2 gm/dL 1.0-4. 8 Not Available [address], [address]127, 03/08/2017 22:21:58 03/08/20 17 03/08/2017 CMP, serum or plasm a anion gap 15 mEq/L 10-20 Not Available [address], 89209, 03/08/2017 22:21:58 03/08/20 17 03/08/2017 C react alfreda prote in, QN, serum or plasm a C-reactive protein 0.24 mg/dL 0.00-0 .50 Not Available [address], [address]3261, 03/08/2017 22:21:58 03/08/20 17 03/08/2017 lipas e, serum or plasm a lipase 37 U/L 16-63 Not Available [address], [address], 03/08/2017 22:21:59 10/16/19 18 10/16/2017 urina lysis , refle x cultu re color Yellow yellow Not Available [facility] [address] [place] [address], [address], 10/16/2017 15:03:07 10/16/19 18 10/16/2017 urina lysis , refle x cultu re clarity Clear Not Available [facility] [address] [place] [address], [address], 10/16/2017 15:03:07 10/16/19 18 10/16/2017 urina lysis , refle x cultu re glucose 3+ negati ve abnormal Not Available [facility] [address] [place] [address], [address], 10/16/2017 15:03:07 10/16/19 18 10/16/2017 urina lysis , refle x cultu re bili Negati ve negati ve Not Available [facility] [address] [place] [address], [address], 10/16/2017 15:03:07 10/16/19 18 10/16/2017 urina lysis , refle x cultu re ketones Negati ve negati ve Not Available [facility] [address] [place], [address], 10/16/2017 15:03:07 10/16/19 18 10/16/2017 urina lysis , refle x cultu re specific gravity 1.010 1.005- 1.030 Not Available [facility] [address] [place], [address], 10/16/2017 15:03:07 10/16/19 18 10/16/2017 urina lysis , refle x cultu re blood Negati ve negati ve Not Available [facility] [address] [place], [address], 10/16/2017 15:03:07 10/16/19 18 10/16/2017 urina lysis , refle x cultu re pH 5.5 5.0-8. 0 Not Available [facility] [address] [place], [address], 10/16/2017 15:03:07 10/16/19 18 10/16/2017 urina lysis , refle x cultu re protein Negati ve negati ve Not Available [facility] [address] [place], [address], 10/16/2017 15:03:07 10/16/19 18 10/16/2017 urina lysis , refle x cultu re nitrite Negati ve negati ve Not Available [facility] [address] [place], [address], 10/16/2017 15:03:07 10/16/19 18 10/16/2017 urina lysis , refle x cultu re leukocyte esterase, ur Negati ve negati ve Not Available [facility] [address] [place], [address], 10/16/2017 15:03:07 10/16/19 18 10/16/2017 CBC w/ auto diff WBC 5.58 K/uL 3.40-1 1.20 Not Available [facility] [address] [place], [address], 10/16/2017 16:30:11 10/16/19 18 10/16/2017 CBC w/ auto diff RBC 4.75 M/uL 4.50-5 .50 Not Available [facility] [address] [place], [address], 10/16/2017 16:30:11 10/16/19 18 10/16/2017 CBC w/ auto diff HGB 13.7 g/dL 13.0-1 7.0 Not Available [facility] [address] [place], [address], 10/16/2017 16:30:11 10/16/19 18 10/16/2017 CBC w/ auto diff HCT 39.0 % 40.0-5 1.0 low Not Available [facility] (Outpatient) [address] [place], [address], 10/16/2017 16:30:11 10/16/19 18 10/16/2017 CBC w/ auto diff plt 218 K/uL 130-40 0 Not Available [facility] (Out[facility]) [address] [place], [address], 10/16/2017 16:30:11 10/16/19 18 10/16/2017 CBC w/ auto diff MCV 82.1 fL 79.0-9 8.0 Not Available [facility] (Out[facility]) [address] [place], [address], 10/16/2017 16:30:11 10/16/19 18 10/16/2017 CBC w/ auto diff MCH 28.8 pg 27.0-3 4.8 Not Available [facility] (Out[facility]) [address] [place], [address], 10/16/2017 16:30:11 10/16/19 18 10/16/2017 CBC w/ auto diff MCHC 35.1 g/dL 31.5-3 6.0 Not Available [facility] (Out[facility]) [address] [place], [address], 10/16/2017 16:30:11 10/16/19 18 10/16/2017 CBC w/ auto diff RDW 12.8 % 10.8-1 4.6 Not Available [facility] [address] [place], [address], 10/16/2017 16:30:11 10/16/19 18 10/16/2017 CBC w/ auto diff MPV 10.9 fL 9.4-12 .4 Not Available [facility] [address] [place], [address], 10/16/2017 16:30:11 10/16/19 18 10/16/2017 CBC w/ auto diff NRBC 0.00 /100_ WBCs Not Available [facility] [address] [place], [address], 10/16/2017 16:30:11 10/16/19 18 10/16/2017 CBC w/ auto diff absolute NRBC 0.00 K/uL Not Available [facility] [address] [place], [address], 10/16/2017 16:30:11 10/16/19 18 10/16/2017 CBC w/ auto diff diff method Auto Not Available [facility] [address] [place], [address], 10/16/2017 16:30:11 10/16/19 18 10/16/2017 CBC w/ auto diff neuts 54.2 % 45.30- 77.70 Not Available [facility] [address] [place], [address], 10/16/2017 16:30:11 10/16/19 18 10/16/2017 CBC w/ auto diff lymphs 32.1 % 12.30- 39.70 Not Available [facility] [address] [place], [address], 10/16/2017 16:30:11 10/16/19 18 10/16/2017 CBC w/ auto diff monos 10.4 % 4.10-1 2.80 Not Available [facility] [address] [place] [address], [address], 10/16/2017 16:30:11 10/16/19 18 10/16/2017 CBC w/ auto diff eos 2.7 % 0-7.2 Not Available [facility]) [address] [place] [address], [address], 10/16/2017 16:30:11 10/16/19 18 10/16/2017 CBC w/ auto diff basos 0.4 % 0-2.80 Not Available [facility] [address] [place], [address], 10/16/2017 16:30:11 10/16/19 18 10/16/2017 CBC w/ auto diff granulocytes , immature (%) 0.2 % 0.0-0. 9 Not Available [facility] [address] [place] [address], [address], 10/16/2017 16:30:11 10/16/19 18 10/16/2017 CBC w/ auto diff absolute neuts 3.03 K/uL 1.40-7 .70 Not Available [facility] [address] [place], [address], 10/16/2017 16:30:11 10/16/19 18 10/16/2017 CBC w/ auto diff absolute lymphs 1.79 K/uL 0.60-3 .20 Not Available [facility] [address] [place] [address], [address], 10/16/2017 16:30:11 10/16/19 18 10/16/2017 CBC w/ auto diff absolute monos 0.58 K/uL 0.11-0 .59 Not Available [facility] [address] [place], [address], 10/16/2017 16:30:11 10/16/19 18 10/16/2017 CBC w/ auto diff absolute eos 0.15 K/uL 0.01-0 .50 Not Available [facility] [address] [place], [address], 10/16/2017 16:30:11 10/16/19 18 10/16/2017 CBC w/ auto diff absolute basos 0.02 K/uL 0.00-0 .08 Not Available [facility] [address] [place], [address], 10/16/2017 16:30:11 10/16/19 18 10/16/2017 CBC w/ auto diff granulocytes , immature 0.01 K/uL 0.00-0 .05 Not Available [facility] [address] [place], [address], 10/16/2017 16:30:11 10/16/19 18 10/16/2017 BMP, blood sodium 142 mmol/ L 133-14 6 Not Available [facility] [address] [place], [address], 10/16/2017 16:53:22 10/16/19 18 10/16/2017 BMP, blood chloride 105 mmol/ L 96-108 Not Available [facility] [address] [place], [address], 10/16/2017 16:53:22 10/16/19 18 10/16/2017 BMP, blood potassium 4.7 mmol/ L 3.3-5. 1 Not Available [facility] [address] [place], [address], 10/16/2017 16:53:22 10/16/19 18 10/16/2017 BMP, blood CO2 29 mmol/ L 21-35 Not Available [facility] [address] [place] [address], [address], 10/16/2017 16:53:22 10/16/19 18 10/16/2017 BMP, blood BUN 6 mg/dL 6-19 Not Available [facility] [address] [place] [address], [address], 10/16/2017 16:53:22 10/16/19 18 10/16/2017 BMP, blood creatinine 0.90 mg/dL 0.5-1. 5 Not Available [facility] [address] [place] [address], [address], 10/16/2017 16:53:22 10/16/19 18 10/16/2017 BMP, blood glucose 229 mg/dL 70-99 high Not Available [facility] [address] [place] [address], [address], 10/16/2017 16:53:22 10/16/19 18 10/16/2017 BMP, blood calcium 9.6 mg/dL 8.4-10 .3 Not Available [facility] [address] [place] [address], [address], 10/16/2017 16:53:22 10/16/19 18 10/16/2017 BMP, blood eGFR >60 mL/mi n/1.7 3m2 >60 Abnor mal if <60. If patie nt is Afric an-Am kwabena n, multi ply the resul t by 1.21. Not Available [facility] [address] [place] [address], [address], 10/16/2017 16:53:22 10/16/19 18 10/16/2017 BMP, blood anion gap 13 mmol/ L 10-20 Not Available [facility] [address] [place] [address], [address], 10/16/2017 16:53:22 10/16/19 18 10/16/2017 lipas e, serum or plasm a lipase 25 U/L 16-63 Not Available [facility] [address] [place], [address], 10/16/2017 16:53:24 10/16/19 18 10/16/2017 lfts (hepa tic panel ) alkaline phosphatase 98 U/L 39-117 Not Available [facility] (Outpatient) [address] [place], [address], 10/16/2017 16:53:26 10/16/19 18 10/16/2017 lfts (hepa tic panel ) total bilirubin 0.5 mg/dL 0-1.2 Not Available [facility] [address] [place] [address], [address], 10/16/2017 16:53:26 10/16/19 18 10/16/2017 lfts (hepa tic panel ) direct bilirubin <0.2 mg/dL 0-0.3 Not Available [facility] [address] [place], [address], 10/16/2017 16:53:26 10/16/19 18 10/16/2017 lfts (hepa tic panel ) bilirubin (indirect) NOT CALCUL ATED mg/dL 0-1.5 Not Available [facility]) [address] [place] [address], [address], 10/16/2017 16:53:26 10/16/19 18 10/16/2017 lfts (hepa tic panel ) AST 14 U/L 0-37 Not Available [facility] [address] [place] [address], [address], 10/16/2017 16:53:26 10/16/19 18 10/16/2017 lfts (hepa tic panel ) ALT 16 U/L 0-40 Not Available [facility] [address] [place], [address], 10/16/2017 16:53:26 10/16/19 18 10/16/2017 lfts (hepa tic panel ) total protein 7.4 g/dL 6.5-8. 0 Not Available [facility] [address] [place], [address], 10/16/2017 16:53:26 10/16/19 18 10/16/2017 lfts (hepa tic panel ) albumin 4.3 g/dL 3.9-4. 8 Not Available [facility] [address] [place], [address], 10/16/2017 16:53:26 10/16/19 18 10/16/2017 lfts (hepa tic panel ) globulin 3.1 g/dL 1-4.8 Not Available [facility] [address] [place], [address], 10/16/2017 16:53:26 10/16/19 18 10/16/2017 lfts (hepa tic panel ) A/G ratio 1.39 ratio 1.00-4 .80 Not Available [facility] [address] [place], [address], 10/16/2017 16:53:26 04/12/20 16 04/12/2016 XR, chest , 2 view No observ ation record ed. [email or web address] [facility] [address] [place], [address], 04/18/2016 07:51:26 06/16/20 16 04/12/2016 chest 2 [...] DORIAN MON MD 2015 06:35 AM mmastroberti [facility] [address] [facility], [place], [address], 06/17/2016 10:45:13 03/09/20 17 03/09/2017 CT, abdom [...] . Initia l report render ed by [facility]. POS - CDHRAD BOARDW S7 Electr onical ly Signed by: MO CERON on 017 10:12 AM Techno logist : NINI MONICA, KEVIN Transc ribed by: Yuli allen, PS360 Result s 2016 10:04 AM Electr onical ly Signed By: MO CERON MD 2016 10:12 AM [facility] [address] [place] [address], [address], 03/13/2017 13:11:35 10/17/19 18 10/16/2017 xr abdom [...] P.S. LQP X 7 MONTHS ROBLES ISAAC [facility] [address] [place], [address], 10/17/2017 08:11:32 Result Notes None recorded. Problems Name Problem SNOMED Code Status Onset Date Resolution Date Notes Provider Name and Address Organization Details Recorded Time Essential hypertensio n 44141125 Completed 01/20/2016 Robles Isaac MD [address] [place], [place] [address], [address], [facility] 6 23:10:47 Diabetes mellitus 42772417 Completed 01/20/2016 Robles Isaac MD [address] [place], [place] [address], [address], [facility] 6 23:10:50 Skin lesion 17527361 Completed 01/20/2016 Robles hendrickson MD [address] [place], [place] [address], [address], [facility] 6 23:10:54 Benign essential hypertensio n 0963527 Active Robles Isaac MD [address] [place], [place] [address], [address], [facility] 6 08:53:56 Mixed hyperlipide muna 313670568 Active Robles Isaac MD [address] [place], [place] [address], [address], [facility] 6 08:53:56 Uncontrolle d type 2 diabetes mellitus 407373847 Active Robles Isaac MD [address] [place], [place] [address], [address], [facility] 6 08:53:56 Problem Notes None recorded. Procedures Surgical History Date Name Laterality Status Provider Name and Address Organization Details Recorded Time 6 POC Urinalysis Testing completed [facility] 05/31/2016 16:24:56 4 Excision completed Robles Isaac MD [address] [place], [place] [address], [address], [facility] 10/15/2013 11:15:56 Imaging Results Imaging Date Name Status LastModified by Organiz ation Details LastModified Time 04/12/2016 XR, chest, 2 view completed [facility] [address] , [place], [address], 04/18/2016 07:51:26 04/12/2016 chest 2 V completed mmastroberti [facility] [address] [place], [address], 06/17/2016 10:45:13 03/09/2017 CT, abdomen + pelvis, w/o contrast completed [facility] [address] [place], [address], 03/13/2017 13:11:35 10/16/2017 xr abdomen series supine with decubitis/ere ct and single view chest completed [facility] [address] [place], [address], 10/17/2017 08:11:32 Procedure Notes None recorded. Medical [...] Available Not Available No t Available [employer] [place] Lite kit active Not Available Not Available Not Available Vitals Date Recorded Body height Body weight Body mass index (BMI) Systolic blood pressure Diastolic blood pressure Provider Name and Address Organization Details Last Updated DateTime 05/03/2016 158.115 cm 58757.45 g 27.4 kg/m2 144 mm[Hg] 74 mm[Hg] Alessandra Orellana MA [facility] 6 08:30:54 Date Recorded Body height Heart rate Oxygen saturation Oxygen saturation in Arterial blood by Pulse oximetry Systolic blood pressure Diastolic blood pressure Provider Name and Address Organization Details Last Updated DateTime 6 158.115 cm 85 /min 98 % 98 % 142 mm[Hg] 88 mm[Hg] [facility] 6 16:06:44 Date Recorded Body height Systolic blood pressure Diastolic blood pressure Provider Name and Address Organization Details Last Updated DateTime 06/06/2016 158.115 cm 142 mm[Hg] 72 mm[Hg] [facility] 06/06/2016 09:58:35 Date Recorded Body height Body weight Body mass index (BMI) Systolic blood pressure Diastolic blood pressure Provider Name and Address Organization Details Last Updated DateTime 06/22/2016 158.115 cm 61812.26 g 27.3 kg/m2 150 mm[Hg] 80 mm[Hg] [facility] 6 11:20:12 Social History Question Answer Notes LastModified by Organizat ion Details LastModified Time Tobacco Smoking Status Never Smoker Alessandra Orellana MA [facility] 10/02/2013 10:35:52 What Is Your Level [...] Occupation? Works At [facility] [employer] Information not available 10/02/2013 How Many Days [...] Information not available 07/04/2016 [facility] rmation not available 10/02/2013 How Many Children Do You Have? 5 Information not available 10/02/2013 Seat Belts [facility] Routinely [facility] Information not available 10/02/2013 Smoke Alarm In Home Yes [facility] Information not available 10/02/2013 How Much Tobacco Do You Smoke? No [facility] Information not available 12/14/2015 General Stress [...] have difficulty dressing or bathing? No [facility] Information not available 10/02/2013 Mental Status Question Answer Note LastModified by Organizat ion Details LastModified Time Do you have difficulty concentrating, remembering or making decisions? Yes [facility] Information n ot available 10/02/2013 Family History [...] Recorded Time Tdap 4 completed Not Available [facility] 09/28/2019 02:16:08 Influenza, split virus, quadrivalent, PF 4 completed Not Available [facility] 09/28/2019 02:18:56 pneumococcal polysaccharide PPV23 4 completed Not Available [facility] 09/28/2019 02:14:36 Influenza, split virus, trivalent, PF 4 completed Not Available [facility] 09/28/2019 02:19:21 Influenza, split virus, quadrivalent, PF 6 completed Not Available [facility] 09/28/2019 02:33:00 Past Encounters Encounter ID Performer Location Encounter Start Date Encounter Closed Date Diagnosis/Indication Diagnosis SNOMED-CT Code Diagnosis ICD10 Code Diagnosis Note [id number] [facility], [place]ICE [address] [place] [address] 10/02/2013 10:13:34 10/02/2013 11:26:17 Essential hypertension 91605557 Elevated BP. Previously not engaged in care. Low salt diet recommende d. Start Chlorthali done. Will add SHUN-I once renal function establishe d. Follow up in 1 week. Advised to get fasting labwork tomorrow. Diabetes mellitus 18755487 Patient with new-onset diabetes. Symptoms of polydipsia [...] week. Screening for malignant neoplasm of colon 333815611 Skin lesion 61937970 Inv olving the left posterior upper arm. Likely epidermoid cyst. Schedule for an excision. No clinical evidence of cellulitis or acute abscess. Influenza vaccine needed [id number] Administra tion of diphtheria, pertussis, and tetanus vaccine [id number] TINO Mendoza, [facility], OFFICE [address] [place] [address] 10/09/2013 09:59:46 10/09/2013 13:05:30 Essential hypertension 48536480 Previously not engaged in care. Tolerating Chlorthali done. BP improved. Low salt diet recommende d. Will add Lisinopril 2.5mg po daily. Repeat BMP at his next visit. Diabetes mellitus 05916833 Patient with new-onset diabetes. Symptoms of polydipsia [...] start SHUN-I. Follow up in 1 week. [id number] TINO Mendoza, [facility], OFFICE [address] [place] [address] 10/15/2013 10:06:38 10/15/2013 13:08:04 Diabetes mellitus 68433508 Patient with new-onset diabetes. Symptoms of polydipsia [...] in 1 week. Epidermoid cyst of skin 114010634 Non-infect ed, left upper arm cyst removed [...] week for wound check and suture removal. [id number] Robles Isaac MD , [facility], [address] [place] [address] 10/23/2013 14:35:31 10/23/2013 15:12:07 Chest pain [id number] His symptoms of left-sided chest pain and [...] s for UC/ER use discussed. Skin lesion 95268118 Inv olving the left posterior upper arm. Sutures removed. Hypertroph ic scar and contact dermatitis noted. Purulent discharge expressed with suture removal. Wound care discussed. Gauze applied. Follow up early next week for a follow up. Consider General Surgery referral if not healed completely . [id number] TINO Mendoza, [facility], [address] [place] [address] 10/30/2013 08:21:52 10/30/2013 08:54:16 Essential hypertension 45863081 Previously was not engaged in care. Tolerating Chlorthali done and Lisinopril . BP markedly improved. Low salt diet recommende d. Check BMP at his next visit. Diabetes mellitus 43450640 Patient with new-onset diabetes. Symptoms of polydipsia [...] ratio. SHUN-I started previously . Skin lesion 91596952 Inv olving the left posterior upper arm. Sutures removed last week. Hypertroph ic scar and contact dermatitis noted at the time. Now healing well. No fluctuance . Consider General Surgery referral if not healed completely . Chest pain 46720521 His symptoms of left-sided chest , SOB [...] symptoms. Indication s for UC/ER use discussed. [id number] TINO Stanley, [facility], [address] [place] [address] 11/27/2013 09:03:19 11/27/2013 09:47:48 Diabetes mellitus 07050537 Patient with recent diagnosis of diabetes. Symptoms [...] elevated MA/Cr ratio. SHUN-I started. Essential hypertension 23228539 Previously was not engaged in care. Tolerating Chlorthali done. Erroneousl y stopped Lisinopril . Will resume. No intoleranc e issues. BP markedly improved. Low salt diet recommende d. Epidermoid cyst of skin 315171581 Non-infect ed, left upper arm cyst removed at his previous visit due to persistent pain. Patient with residual scarring. No current evidence of infection. [id number] Xigurwinder Watkins , [facility], [address] [place] [address] 02/19/2014 11:04:44 02/19/2014 12:04:40 Adult health examination 499562154 See Risk Assessment and Lifestyle Change Counseling section above. Tdap vaccine UTD. PNA vaccine administer ed today. Home/vehic le/sexual safety reviewed. Not sexually active. Colonoscop y scheduled 03/2014. Counseling 174868020 Benign ess ential hypertension 1042796 Previously was not engaged in care. Tolerating Chlorthali done and Lisinopril . BP markedly improved. Low salt diet recommende d. Mixed hyperlipidemia 142813735 Fair FLP with LDL 92. Would like better control given his underlying diabetes, but also struggles with polypharma cy. Low fat/choles terol diet and exercise recommende d. Diarrhea 27176525 Patien t with chronic diarrhea intermitte ntly. Recently evaluated by Dr. Basilio (GI). Scheduled to have a colonoscop y in 03/2014. Recent IgA mildly positive (other celiac markers negative). No BRBPR/boris na. No abdominal pain. Uncontroll ed type 2 diabetes mellitus 936042688 States home BS 140-200. Improved Hgb A1c [...] hydration discussed. Administra tion of pneumococcal vaccine [id number] Robles Isaac MD [facility], OFF[address] [place] [address] 04/09/2014 07:59:46 04/09/2014 08:49:22 Uncontrolled type 2 diabetes mellitus 662042334 States home BS 120-150. Overall improved Hgb [...] discussed. Ample oral hydration discussed. Essential hypertension 47267916 Previously was not engaged in care. Tolerating Chlorthali done. Erroneousl y stopped Lisinopril . Will resume. No intoleranc e issues. BP markedly improved. Will titrate up Lisinopril as needed. Low salt diet clayton carmen [id number] [facility], [address] [place] [address] 07/07/2014 07:47:01 07/07/2014 08:23:26 Mixed hyperlipidemia 326318332 Patient with LDL of 150 (06/2014). However, his 10-year risk of MS is 7%. New AHA/ACC guideline discussed. Advised on low fat/choles terol diet and exercise. Influenza vaccine needed [id number] 106 Uncontroll ed type 2 diabetes mellitus 467831081 States home BS 100-160. Overall improved Hgb [...] discussed. Ample oral hydration discussed. Essential hypertension 56276345 Previously was not engaged in care. Tolerating Chlorthali done and Lisinopril . No intoleranc e issues. BP markedly improved. Low salt diet recommende d. [id number] MD GISSELL Huizar, [facility], [address] [place] [address] 11/25/2015 08:22:18 11/25/2015 09:20:28 Benign essential hypertension 6654688 I10 Blood pressure elevated. Lost insurance in 2013. Has been off his medication s. No CP/SOB/CUEVAS . Recommende d to continue to work on diet, exercise, and lowering salt intake. Will resume Lisinopril (but will hold off on Chlorthali done). Check BMP. Mixed hyperlipidemia 267 960208 E78.2 Patient with previous LDL of 150 (06/2014). However, his 10-year risk of MS is 7%. New AHA/ACC guideline discussed. Advised on low fat/choles terol diet and exercise. Uncontrol ed type 2 diabetes mellitus 084415584 E11.65 Out of care for over 1 [...] oral hydration discussed. Unexplaine d weight loss 338813254 R63.4 Patient with 15 lbs weight loss since his last visit. Denies bleeding. Out of medication for over 1 year. Will continue to monitor. [id number] Robles Isaac MD , [facility], [address] [place] [address] 12/14/2015 10:17:02 12/15/2015 08:21:49 Benign essential hypertension 1488222 I10 Blood pressure improved. Lost insurance in 2013. Was off his medication s. No CP/SOB/CUEVAS . Recommende d to continue to work on diet, exercise, and lowering salt intake. Recently started Lisinopril (but will hold off on Chlorthali done). Mixed hyperlipidemia 267 203078 E78.2 Patient with previous LDL of 150 (06/2014). However, his 10-year risk of MS is 7%. New AHA/ACC guideline discussed. Advised on low fat/choles terol diet and exercise. Uncontroll ed type 2 diabetes mellitus 394010284 E11.65 Out of care for over 1 [...] medication s discussed. Ample oral hydration discussed. [id number] Robles Isaac MD , [facility], [address] [place] [address] 01/11/2016 08:21:26 01/11/2016 08:52:49 Benign essential hypertension 8917452 I10 Blood pressure elevated, but previously well [...] if persistent ly elevated. Mixed hyperlipidemia 267 204396 E78.2 Patient with previous LDL of 150 (06/2014). However, his 10-year risk of MS is 7%. New AHA/ACC guideline discussed. Advised on low fat/choles terol diet and exercise. Uncontroll ed type 2 diabetes mellitus 507352945 E11.65 Out of care for over 1 [...] hydration discussed. Right uppe r quadrant pain 649642476 R10.11 Patient with 1-week duration of RUQ abdominal pain. No clinical evidence of acute abdomen. Will check US to further evaluate. Advised to avoid high fat diet. Indication s for UC/ER use reviewed. [id number] Robles Isaac MD , [facility], [address] [place] [address] 01/20/2016 08:45:30 01/20/2016 09:28:43 Cholelithiasis without obstruction 55768283 K80.20 Patient with 1-week duration of RUQ abdominal pain. No clinical evidence of acute abdomen. Abdominal US revealed gallstones . Will refer to General Surgery for further evaluation . Advised to avoid high fat diet. Indication s for UC/ER use reviewed. Benign ess ential hypertension 2338066 I10 Blood pressure improved overall. Lost insurance in 2013. Was off his medication s. No CP/SOB/CUEVAS . Recommende d to continue to work on diet, exercise, and lowering salt intake. Recently started Lisinopril (but will hold off on Chlorthali done). Mixed hyperlipidemia 267 294699 E78.2 Patient with previous LDL of 150 (06/2014). However, his calculated 10-year risk of MS is 7%. New AHA/ACC guideline discussed. Advised on low fat/choles terol diet and exercise. Uncontroll ed type 2 diabetes mellitus 212386280 E11.65 Out of care for over 1 [...] medication s discussed. Ample oral hydration discussed. [id number] Robles Isaac MD , [facility], [address] [place] [address] 05/03/2016 08:21:49 05/03/2016 08:48:10 Neuropathy 412511580 G62.9 Patient reports bilateral inner thigh numbness and tingling. No weakness. No urine incontinen ce symptoms. Trial of Gabapentin discussed. Uncontroll ed type 2 diabetes mellitus 229142707 E11.65 Recently increased the Glipizide dose. Previously [...] oral hydration discussed. Benign ess ential hypertension 4246462 I10 Blood pressure improved overall. Lost insurance in 2013. Was off his medication s. No CP/SOB/CUEVAS . Recommende d to continue to work on diet, exercise, and lowering salt intake. Recently started Lisinopril (but will hold off on Chlorthali done). [id number] PRABHU Mauricio-CALEB , [facility], OFFICE [address] [place] [address] 05/31/2016 15:55:20 05/31/2016 16:50:42 Active or passive immunization [id number] Z23 Diarrhea [id number] R19.7 possibly secondary to surgery, poor historian, symptoms worsening in last 2 weeks. labs as ordered below. advised follow up within 4-7 days. Dysuria [id number] R30.0 UA labs consistent with poorly controlled DM. culture pending. follow up with PCP, if symptoms worsen be seen. Uncontroll ed type 2 diabetes mellitus [id number] E11.65 reviewed importance of blood sugar control. pt to follow up with pcp. [id number] , [facility], OFFICE [address] [place] [address] 06/06/2016 09:54:11 06/06/2016 10:24:25 Diarrhea [id number] R19.7 possible s/e of metformin, change ir to ER, follow up in 2 weeks. Uncontroll ed type 2 diabetes mellitus [id number] E11.65 possible metformin contributi ng to diarrhea, change to ER. monitor diarrhea, follow up in 2 weeks for disease management re diarrhea and blood sugar. Shoulder pain [id number] M 25.512 subscapula r pain consistent with muscle strain. continue with supportive measures. [id number] Kyra Mauro, HAMPER MAKER MACHINE-CALEB [facility], OFFICE [address] [place] [address] 06/22/2016 11:10:57 06/24/2016 09:39:47 Shoulder joint pain [id number] M25.519 right sub scapular muscle spasm, pt notes weakness in right shoulder suggestive of rotator cuff involvemen t, but no focal weakness on exam , muscle tension noted. refer for PT, apply heat, follow up for failure to resolve. Diabetes mellitus [id number] E11.9 fasting sugar elevated, referral to DNE consider victoza or insulin. [id number] Julieta Barrett RN, BSN, [facility] [place]NOTE 2] DM Education , [facility] [address] [place] [address] 07/04/2016 07:51:58 07/08/2016 09:50:09 Uncontrolled type 2 diabetes mellitus [id number] E11.65 Met with Greg today for Type 2 diabetes, kindly referred by Kyra Mauro, STEPHANIE. Greg is accompanie d by his daughter, who helps to translate for him. He is Northern Irish speaking. His daughter reports she lives with [...] Delong Member ID Guarantor Name 05/03/2016 1 [facility] - DIRECT CONNECTORCARE TYPE II (HMO) Greg Land [id number] Greg Emery 05/31/2016 1 [facility] - DIRECT CONNECTORCARE TYPE II (HMO) Greg Land [id number] 1 Gregnicho Land 06/06/2016 1 [facility] - DIRECT CONNECTORCARE TYPE II (HMO) Greg Land [id number] 1 [facility] 06/22/2016 1 [facility] - DIRECT CONNECTORCARE TYPE II (HMO) Greg Land [id number] 1 [facility] Land 07/04/2016 1 [facility] - DIRECT CONNECTORCARE TYPE II (HMO) Gregnicho Enriquezo [id number] 1 [facility] Notes Date Note Type Note Provider [...] undergone laparoscopic cholecystectomy in 02/2016. Went to [facility] ER 3 weeks ago due to CP. His CXR, CBC, Troponin and CMP all within normal, except for elevated BS. No recurring symptoms since. Robles Isaac MD [address] [place] [address], [phone], [facility] 05/03/2016 23:18:53 05/31/2016 text/html pt presents with [...] procedure. diarrhea worse. no fever. Kyra Mauro [address], [address], [facility] 06/05/2016 16:26:27 06/06/2016 text/html back pain, start [...] may be related to metformin. Kyra Mauro, [address], [address], [facility] 06/06/2016 10:22:13 06/22/2016 text/html pt has pain in b ack to front around shoulder pain is interfering with ability to sleep.pain lasts all day.feels as if the shoulder falls asleep and drops. Kyra Mauro [address], [address], [facility] 06/22/2016 11:34:50 07/04/2016 text/html Diabetes Self Management History & IntakeReported bypatient.Patient HistoryPatient chief complaint today:Needs help interpreting blood sugars; has a family history of diabetes; Completed Diabetes Self-Assessment Form received, reviewed and sent for chart upload. 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 Intake Form) Julieta Barrett RN, BSN, [address], [address], [facility] 07/04/2016 16:03:29
--- OUTSIDE RECORDS SUMMARY | 2024-11-06 11:06 | XMS_ITS | Encounter Summary ---
Author Organization [employer] Address [address] [facility] 7t [place] [address] Care Team Providers Care Emergency Technician Name Role Phone Carolina Siddiqi MD Primary Care Provide r Encounter Details Date Type Department Care Team ([facility] st Contact Info) Description 07/19/2024 Orders Only [facility] [address] [place] [address] Carolina Siddiqi MD [address] [place] [address] Social History Tobacco Use Types Packs/Day Years [...] Description 12/10/2024 9:15 AM EDT Office Visit [facility] [address] [place] [address] Carolina Siddiqi MD [address] [place] [address] documented as of this encounter Goals Goal [...] documented as of this encounter Care Teams Emergency Technician Relationship Specialty Start Date End Date Carolina Siddiqi MD [address] [place] [address] PCP - General Internal Medicine 07/11/23 Jolie Thompson Community Health Worker Case Management 02/14/24 documented as of this encounter
--- OUTSIDE RECORDS SUMMARY | 2024-11-06 11:07 | XMS_ITS | Encounter Summary ---
Author Organization [employer] Address [address] 7[address] [place] [address] Care Team Providers Care Auto Rental Clerk Name Role Phone Carolina Siddiqi MD Primary Care Provide r Reason for Visit * Reason Comments Med Refill Encounter Details Date Type Department Care Team ([facility] st Contact Info) Description 10/25/2024 Refill [facility] [address] [place] [address] Carolina Siddiqi MD [address] [place] [address] Type 2 diabetes mellitus with hyperglycemia, without long-term current use of insulin ([facility]) Social History Tobacco Use Types Packs/Day Years [...] 12/10/2024 9:15 AM EDT Office Visit [facility] MEDICINE [address] [place] [address] Carolina Siddiqi MD [address] [place] [address] documented as of this encounter Goals Goal [...] hyperglycemia, without long-term current use of insulin ([facility]) documented in this encounter Additional Health Concerns Assessment Noted Time PHQ-9 Depression Total Score: 10 024 10:07 AM EDT documented as of this encounter Care Teams Auto Rental Clerk Relationship Specialty Start Date End Date Carolina Siddiqi MD [address] [place] [address] PCP - General Internal Medicine 07/11/23 Jolie Thompson Community Health Worker Case Management 02/14/24 documented as of this encounter
--- OUTSIDE RECORDS SUMMARY | 2024-11-06 11:07 | XMS_ITS | Encounter Summary ---
Author Organization [employer] Address [address] [place] [address] Care Team Providers Care Pharmaceutical Compounding Supervisor Name Role Phone Carolina Siddiqi MD Primary Care Provide r Encounter Details Date Type Department Care Team (Late st Contact Info) Description 10/24/2024 Orders Only [facility] External Provider, [facility] Social History Tobacco Use Types Packs/Day Years [...] t he electric, gas, oil or water [employer] threatened to shut off services in your [...] Upcoming Encounters Date Type Department Care Team ([facility] st Contact Info) Description 12/10/2024 9:15 AM EDT Office Visit [facility] [address] [place] [address] Carolina Siddiqi MD [address] [place] [address] documented as of this encounter Goals Goal [...] EST Narrative 10/25/2024 6:14 AM EST ? [facility] ?[address] ?[place] [address] ? Ultrasound Report ? Signed ? Patient: Land,Greg ?MR#: [id number] ?? [id number] ? : 1960 ?Acct:[id number] ? Age/Sex: 64 / M ?ADM Date: 10/24/24 ? Loc: HO.US ? Attending Dr: Glenda DOBSONP-BC ? Ordering Physician: Glenda Rosa MEDICAL CLAIMS ANALYST-BC ?? Date of Service: 10/24/24 ?? Procedure(s): US abdomen limited ?? Accession Number(s): [id number] ? cc: Carolina Siddiqi MD; Glenda Rosa MEDICAL CLAIMS ANALYST-BC ? CLINICAL HISTORY: K42.9 - Umbilical hernia [...] ? DD/ 1 ? TD/TT: 10/25/24611 ? Hotel Security Officer: ? Procedure Note Deven Isaac - 10/25/2024 [place] [id number] Ultrasound Report Signed Patient: Rosita Land#: [id number] : 9Acct:[id number] Age/Sex: 64 / MADM Date: 10/24/24 Loc: HO.US Attending Dr: Glenda NICHOLSON Ordering Physician: Glenda Rosa Date of Service: 10/24/24 Procedure(s): US abdomen limited Accession Number(s): [id number] cc: Carolina Siddiqi MD; Glenda Rosa CLINICAL [...] in OV> 10/25/24612 DD/ 1 TD/TT: 10/25/24611 Hotel Security Officer: [facility] External Provider IMG US PROCEDURES Final Result documented in this encounter Visit Diagnoses Not on filedocumented in this encounter Additional Health Concerns Assessment Noted Time PHQ-9 Depression Total Score: 10 02/25/ 024 10:07 AM EDT documented as of this encounter Care Teams Pharmaceutical Compounding Supervisor Relationship Specialty Start Date End Date Carolina Siddiqi MD [address] [place] [address] PCP - General Internal Medicine 07/11/23 Jolie Thompson Community Health Worker Case Management 02/14/24 documented as of this encounter
== END 2024-11-06 09:40 | disposition home or self-care (01) ==
LOC: HO.US 09:39
PROVIDERS: PCP Nurse Practitioner Family; Visit Provider Internal Medicine Hypertension Specialist
DX: N18.9 Chronic kidney disease, unspecified (principal)
CPT/HCPCS: 76775

== ENCOUNTER → 2024-11-06 09:41 | Outpatient (BNV) | payer OTHER, SELFPAY | PROVIDERS: PCP Nurse Practitioner Family; Visit Provider Radiology Diagnostic Radiology | DX: N20.0 Calculus of kidney (principal) | CPT/HCPCS: 76775 ==

== ENCOUNTER 2024-11-13 14:58 | Outpatient (AMB) | payer MEDICARE, SELFPAY ==
[2024-11-13 14:54] VITALS: BP 132/66; PULSE 75; O2SAT 98
--- NOTE | 2024-11-13 14:54 | HO.NEPHOV_ITS ---
Vital Signs 11/13/24 14:54 Height 5 ft 3 in BP 132/66 Blood Pressure Location Lt brachial Position Sitting Pulse 75 Pulse Source Pulse Oximeter Pulse Oximetry (%) 98 Oxygen Delivery Method Room Air Intake Visit Reasons: 7 week f/u/ Conf Hospital Admissions Officer Required: No Hospital Admissions Officer Services: Hospital Admissions Officer Offered & Declined (Daughter will translate ) Accompanied by: Family/Other Allergies No Known Allergies Allergy (Verified 11/13/24 14:56) Medication List - Last Reconciled 11/13/24 by Yomi Solis MD aspirin 81 mg PO QAM atorvastatin 80 mg PO DAILY 90 days blood sugar diagnostic (Freestyle [employer] strips) As directed blood-glucose meter (Freestyle [employer] meter) As directed cholecalciferol (vitamin D3) 50 mcg PO DAILY dapagliflozin propanediol (Farxiga) 10 mg PO QAM dulaglutide (Trulicity) mg subcut QWEEK famotidine 20 mg PO BEDTIME lancets (FreeStyle Lancets) As directed lancets (OneTouch Delica Plus Lancet) As directed metoprolol succinate ER 50 mg PO DAILY nitroglycerin (Nitrostat) 0.4 mg sublingual Q5M PRN pantoprazole 40 mg PO QAM sacubitril-valsartan 97-103 mg (Entresto) 1 tab PO BID ticagrelor (Brilinta) 90 mg PO BID HPI Comments Details: 62-year-old man with a history of longstanding diabetes mellitus and coronary disease referred for chronic kidney disease. Serum creatinine has been between 1.5-1.7 mg/dL. He was accompanied by his daughter. She was able to interpret and they did not want an backrest assembler service. Greg has had diabetes mellitus for a long time. No urine studies are available. Urine protein excretion has not been quantitated. However he tells me that he sees lot of foaming during urination. He has heart failure with preserved ejection fraction he is currently on a Entresto. [facility] Medical History Acute HFrEF (heart failure with reduced ejection fraction) Diabetes HLD (hyperlipidemia) HTN (hypertension) Surgical History S/P cardiac catheterization S/P cardiac cath H/O heart artery stent Hx of appendectomy Social History Household Members: None Housing: Apartment Do you presently have visiting nurse or other home services: No Patient Tobacco Use Status: Tobacco use Unknown Physical Exam Vital Signs: Last Vital Signs Pulse 75 11/13/24 14:54 BP 132/66 11/13/24 14:54 Pulse Ox 98 11/13/24 14:54 Oxygen Delivery Method Room Air 11/13/24 14:54 Const General: comfortable; No acute distress Orientation/consciousness: patient oriented x3 Eyes General: appearance normal, both eyes and all related structures Visual Matos: normal visual matos by confrontation Neck Neck: Yes supple and Yes no JVD Resp Effort & Inspection: normal respiratory effort and respiratory effort not decreased Cardio Palpation: no palpable S3 and no palpable S4 Heart sounds: no rubs GI Inspection: Yes normal to inspection Palpation (GI): Soft to palpation Percussion: Yes normal to percussion Auscultation: normal bowel sounds General: Yes no CVA tenderness Back/Spine/Pelvis Back: no CVA tenderness Skin General skin exam: no petechiae and no purpura Neuro General: patient oriented x3 and no focal motor deficits Extrem General: No clubbing and No edema Results Reviewed Results Reviewed: Right kidney: The right kidney measures 10.1 x 4.6 x 5.1 cm. Renal parenchymal echotexture and thickness are normal. There are no masses. There is no hydronephrosis or renal calculi. Left Kidney: The left kidney measures 9.9 x 4.7 x 4.8 cm. There is a 3 mm cortical calcification at the lower pole. Renal parenchymal echotexture and thickness are otherwise normal. There are no masses. There is no hydronephrosis or renal calculi. 24 hr urine collection:: Inadequate. Nephrology Results: Hgb 12.0 g/dl (14.0-18.0) L 10/04/24 WBC 5.4 X10*3/uL (4.8-10.8) 10/04/24 Plt Count 166 X10*3/uL (160-400) 10/04/24 Creatinine 1.72 mg/dL (0.5-1.4) H 10/04/24 Urine Protein Negative mg/dL (Neg-Trace) 10/04/24 Renal US 11/06/24 Assessment & Plan Assessment & Plan (1) CKD (chronic kidney disease): Code(s): N18.9 - Chronic kidney disease, unspecified Category: Medical (2) CAD (coronary artery disease): Code(s): I25.10 - Atherosclerotic heart disease of [place] coronary artery without angina pectoris Category: Medical (3) Ischemic cardiomyopathy: Code(s): I25.5 - Ischemic cardiomyopathy Category: Medical (4) Anemia: Code(s): D64.9 - Anemia, unspecified Category: Medical Plan Stage 3 chronic kidney disease in the setting of longstanding diabetes mellitus and coronary disease. Greg probably has diabetic kidney disease. No obstructive uropathy based on USG. Kidneys are echogenic. Glomerular nephritis and interstitial disease seem unlikely based on bland urine sediments No proteinuria Over all renal function is rather stable. Recommendations Keep on low-sodium diet Maintain blood pressure less than 130/80 Continue to avoid nephrotoxic agents. including NSAIDS Agree with Madeline for cardiorenal protection Orders: Orders Basic Metabolic Panel 4 Months D64.9 - Anemia, unspecified, N18.9 - Chronic kidney disease, unspecified Coding Level of Care Code Est Pt Level 4 (68429) Diagnoses CKD (chronic kidney disease) N18.9 CAD (coronary artery disease) I25.10 Ischemic cardiomyopathy I25.5 Anemia D64.9
--- OUTSIDE RECORDS SUMMARY | 2024-11-13 18:09 | XMS_ITS | Encounter Summary ---
Author Organization [employer] Address [address] [facility] 7t [place] [address] Care Team Providers Care Manufacturing Controller Name Role Phone Carolina Siddiqi MD Primary Care Provide r Encounter Details Date Type Department Care Team ([facility] st Contact Info) Description 02/23/2024 Orders Only [facility] MEDICINE [address] [place] [address] Yeimi Saenz MD [address] [place] [address] Social History Tobacco Use Types Packs/Day Years [...] Description 12/10/2024 9:15 AM EDT Office Visit [facility] [address] [place] [address] Carolina Siddiqi MD [address] [place] [address] documented as of this encounter Visit Diagnoses Not on filedocumented in this encounter Additional Health Concerns Assessment Noted Time PHQ-9 Depression Total Score: 23 023 10:38 AM EDT documented as of this encounter Care Teams Manufacturing Controller Relationship Specialty Start Date End Date Carolina Siddiqi MD [address] [place] [address] PCP - General Internal Medicine 07/11/23 Jolie Thompson Community Health Worker Case Management 02/14/24 documented as of this encounter
--- OUTSIDE RECORDS SUMMARY | 2024-11-13 18:09 | XMS_ITS | Data Portability ---
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 Plan of Treatment Reminders Order Date Submit Date Provider Last Modified By Organization Details Last Modified Time Details Appointments None recorded. Lab hepatic function panel, serum - add on. 2015 016 [facility], [address] [place] [address], [id number], 6 04:08:03 culture, urine 2015 016 [facility], [address] [place] [address], [id number], 6 04:07:56 Referral diabetes management referral - peruvian speaker with elevated blood sugar, likely needs injectables , please assist with next steps for blood glucose management. 2015 016 Not available 6 04:08:57 physical therapist referral - pt with right scapular pain and some right shoulder pain with movements. please assist with rehabilitat ion 2015 016 [facility], [address] [place] [address], [id number], 6 04:08:57 Procedures None recorded. Surgeries None recorded. Imaging None recorded. Medication Orders metformin ER 1,000 mg tablet,exte nded release 24hr (osmotic) 2015 016 [facility] ([facility] [address] [place], [id number], 6 04:07:36 glipizide 10 mg tablet 2015 016 [facility] [address] [place], [id number], 6 04:06:44 metformin 1,000 mg tablet 2015 016 [facility] ([facility] [address] [place], [id number], 6 04:05:56 lisinopril 2.5 mg tablet 2015 016 [facility] [address] ([facility] [address] [place], [id number], 6 04:06:25 gabapentin 300 mg capsule 2015 016 [facility] [address] ([facility] [address] [place], [id number], 6 04:06:27 Patient TargetsNo targets recorded. Patient Instructions Encounter Date Encounter Id Patient Instructions Last Modified By Organization Details Last Modified Time 05/03/2016 [id number] Spent 25 minutes of sydx-do-[id number] time, of which greater than 50% was in counseling. After a discussion of treatment options, which included consideration of best practices and patient preferences, the above treatment plan and objectives were adopted. [email or web address] Not available 05/03/2016 23:18:31 07/04/2016 [id number] -Start testing blood sugar more often, at [...] Kyra Mauro, Family Medicine, Encounter Date: 06/22/2016 peruvian speaker with elevate d blood sugar, likely needs injectables, please assist with next steps for blood glucose management. Referring Physician: Kyra Mauro Family Medicine, Encounter Date: 06/22/2016 Results Created Date Observation Date Name Description Value Unit Range Abnormal Flag Note LastModifiedBy Organization Detail LastModifiedTime 04/12/20 16 04/12/2016 CBC w/ auto diff WBC 5.8 K/uL 3.4-11 .2 Not Available [address], [address], 04/12/2016 01:57:38 04/12/20 16 04/12/2016 CBC w/ auto diff RBC 4.71 M/uL 4.50-5 .50 Not Available [address], [address], 04/12/2016 01:57:38 04/12/20 16 04/12/2016 CBC w/ auto diff hemoglobin 13.8 g/dL 13.0-1 7.0 Not Available [address], [address], 04/12/2016 01:57:38 04/12/20 16 04/12/2016 CBC w/ auto diff hematocrit 38.1 % 40.0-5 1.0 low Not Available [address], [address], 04/12/2016 01:57:38 04/12/20 16 04/12/2016 CBC w/ auto diff MCV 80.9 fL 79.0-9 8.0 Not Available [address], [address], 04/12/2016 01:57:38 04/12/20 16 04/12/2016 CBC w/ auto diff MCH 29.3 pg 27.0-3 4.8 Not Available [address], [address], 04/12/2016 01:57:38 04/12/20 16 04/12/2016 CBC w/ auto diff MCHC 36.2 g/dL 31.5-3 6.0 high Not Available [address], [address], 04/12/2016 01:57:38 04/12/20 16 04/12/2016 CBC w/ auto diff RDW 12.9 % 10.8-1 4.6 Not Available [address], [address], 04/12/2016 01:57:38 04/12/20 16 04/12/2016 CBC w/ auto diff MPV 10.4 fL 9.4-12 .4 Not Available [address], [address], 04/12/2016 01:57:38 04/12/20 16 04/12/2016 CBC w/ auto diff platelet count 204 K/uL 130-40 0 Not Available [address], [address], 04/12/2016 01:57:38 04/12/20 16 04/12/2016 CBC w/ auto diff neutrophils 49.9 % 45.3-7 7.7 Not Available [address], [address], 04/12/2016 01:57:38 04/12/20 16 04/12/2016 CBC w/ auto diff lymphocytes 35.0 % 12.3-3 9.7 Not Available [address], [address], 04/12/2016 01:57:38 04/12/20 16 04/12/2016 CBC w/ auto diff monocytes 10.8 % 4.1-12 .8 Not Available [address], [address], 04/12/2016 01:57:38 04/12/20 16 04/12/2016 CBC w/ auto diff eosinophils 3.80 % 0.00-7 .20 Not Available [address], [address], 04/12/2016 01:57:38 04/12/20 16 04/12/2016 CBC w/ auto diff basophils 0.30 % 0.00-2 .80 Not Available [address], [address], 04/12/2016 01:57:38 04/12/20 16 04/12/2016 CBC w/ auto diff absolute neutrophil 2.9 K/uL 1.4-7. 7 Not Available [address], [address], 04/12/2016 01:57:38 04/12/20 16 04/12/2016 CBC w/ auto diff absolute lymphocyte 2.0 K/uL 0.6-3. 2 Not Available [address], [address], 04/12/2016 01:57:38 04/12/20 16 04/12/2016 CBC w/ auto diff absolute monocytes 0.6 K/uL 0.1-0. 6 Not Available [address], [address], 04/12/2016 01:57:38 04/12/20 16 04/12/2016 CBC w/ auto diff absolute eosinophil 0.22 K/uL 0.01-0 .50 Not Available [address], [address], 04/12/2016 01:57:38 04/12/20 16 04/12/2016 CBC w/ auto diff absolute basophils 0.02 K/uL Not Available [address], [address], 04/12/2016 01:57:38 04/12/20 16 04/12/2016 CBC w/ auto diff immature granulocyte 0.20 % 0.00-0 .50 Not Available [address], [address], 04/12/2016 01:57:38 04/12/20 16 04/12/2016 CBC w/ auto diff absolute immature granulocyte 0.01 K/uL 0.00-0 .03 Not Available [address], [address], 04/12/2016 01:57:38 04/12/20 16 04/12/2016 tropo lenore T, serum troponin T <0.010 NG/mL 0.000- 0.030 Not Available [address], [address], 04/12/2016 02:21:34 04/12/20 16 04/12/2016 CMP, serum or plasm a glucose 289 mg/dL 70-99 high Not Available [address], [address], 04/12/2016 02:21:35 04/12/20 16 04/12/2016 CMP, serum or plasm a BUN 10 mg/dL 6-19 Not Available [address], [address], 04/12/2016 02:21:35 04/12/2004/12/2016 CMP, serum or plasm a creatinine 0.9 mg/dL 0.5-1. 5 Not Available [address], [address], 04/12/2016 02:21:35 04/12/20 16 04/12/2016 CMP, serum [...] ages of 17 and 70. Not Available [address], [address], 04/12/2016 02:21:35 04/12/20 16 04/12/2016 CMP, serum or plasm a sodium 137 mEq/L 133-14 6 Not Available [address], [address], 04/12/2016 02:21:35 04/12/20 16 04/12/2016 CMP, serum or plasm a potassium 4.1 mEq/L 3.3-5. 1 Not Available [address], [address], 04/12/2016 02:21:35 04/12/20 16 04/12/2016 CMP, serum or plasm a chloride 99 mEq/L 96-108 Not Available [address], [address], 04/12/2016 02:21:35 04/12/20 16 04/12/2016 CMP, serum or plasm a CO2 26 mEq/L 21-35 Not Available [address], [address], 04/12/2016 02:21:35 04/12/20 16 04/12/2016 CMP, serum or plasm a calcium 9.4 mg/dL 8.4-10 .3 Not Available [address], [address], 04/12/2016 02:21:35 04/12/20 16 04/12/2016 CMP, serum or plasm a total bilirubin 0.6 mg/dL 0.0-1. 2 Not Available [address], [address], 04/12/2016 02:21:35 04/12/20 16 04/12/2016 CMP, serum or plasm a alkaline phosphatase 87 U/L 39-117 Not Available [address], [address], 04/12/2016 02:21:35 04/12/20 16 04/12/2016 CMP, serum or plasm a AST (SGOT) 13 U/L 0-37 Not Available [address], [address], 04/12/2016 02:21:35 04/12/2004/12/2016 CMP, serum or plasm a ALT (SGPT) 19 U/L 0-40 Not Available [address], [address], 04/12/2016 02:21:35 04/12/2004/12/2016 CMP, serum or plasm a total protein 6.9 g/dL 6.5-8. 0 Not Available [address], [address], 04/12/2016 02:21:35 04/12/20 16 04/12/2016 CMP, serum or plasm a albumin 4.0 g/dL 3.9-4. 8 Not Available [address], [address], 04/12/2016 02:21:35 04/12/2004/12/2016 CMP, serum or plasm a globulin 2.9 gm/dL 1.0-4. 8 Not Available [address], [address], 04/12/2016 02:21:35 04/12/2004/12/2016 CMP, serum or plasm a A/G ratio 1.4 gm/dL 1.0-4. 8 Not Available [address], [address], 04/12/2016 02:21:35 04/12/20 16 04/12/2016 CMP, serum or plasm a anion gap 16 mEq/L 10-20 Not Available [facility] [address] [facility], [place], [address], 04/12/2016 02:21:35 05/31/20 16 05/31/2016 POC UA glu UA 1+ abnormal Not Available [address], [address], 05/31/2016 16:34:04 05/31/20 16 05/31/2016 POC UA clarity UA Slight ly Cloudy Not Available [address], [address], 05/31/2016 16:34:04 05/31/20 16 05/31/2016 POC UA uro UA 1.0000 Not Available [address], [address], 05/31/2016 16:34:04 05/31/20 16 05/31/2016 POC UA ket UA Negati ve Not Available [address], [address], 05/31/2016 16:34:04 05/31/20 16 05/31/2016 POC UA pro UA Trace abnormal Not Available [address], [address], 05/31/2016 16:34:04 05/31/20 16 05/31/2016 POC UA nit UA Negati ve Not Available [address], [address], 05/31/2016 16:34:04 05/31/20 16 05/31/2016 POC UA neida UA Negati ve Not Available [address], [address], 05/31/2016 16:34:04 05/31/20 16 05/31/2016 POC UA pH UA 6.0000 Not Available [address], [address], 05/31/2016 16:34:04 05/31/20 16 05/31/2016 POC UA SG UA >=1.03 00 Not Available [address], [address], 05/31/2016 16:34:04 05/31/20 16 05/31/2016 POC UA color UA Dark yellow Not Available [address], [address], 05/31/2016 16:34:04 05/31/20 16 05/31/2016 POC UA blo UA Negati ve Not Available [address], [address], 05/31/2016 16:34:04 05/31/20 16 05/31/2016 POC UA lisa UA Negati ve Not Available [address], [address], 05/31/2016 16:34:04 05/31/20 16 06/02/2016 cultu re, urine culture, urine, routine CULTU RE, URINE , ROUTI NE MICRO NUMBE R: [id number] TEST STATU S: FINAL SPECI MEN SOURC E: URINE SPECI MEN QUALI TY: ADEQU ATE RESUL T: No Growt h Not Available [facility] [address] [place] [address], [address], 06/02/2016 00:43:22 06/02/20 16 06/02/2016 BMP, serum or plasm a glucose 218 mg/dL 70-100 high Not Available [address], [address], 06/02/2016 11:19:48 06/02/20 16 06/02/2016 BMP, serum or plasm a BUN 8 mg/dL 7-18 Not Available [address], [address], 06/02/2016 11:19:48 06/02/20 16 06/02/2016 BMP, serum or plasm a creatinine 0.9 mg/dL 0.8-1. 3 Not Available [address], [address], 06/02/2016 11:19:48 06/02/20 16 06/02/2016 BMP, serum or plasm a B/C 8.9 ratio Not Available [address], [address], 06/02/2016 11:19:48 06/02/20 16 06/02/2016 BMP, serum or plasm a GFR -non 92.4 mL/mi n Recom marychuy d GFR by the Natio nal Kidne y Found ation >60 mL/mi n/1.7 3m2 - Mariam l <60 mL/mi n/1.7 3m2 - Chron ic Kidne y Disea se <15 mL/mi n/1.7 3m2 - Kidne y Failu re Not Available [address], [address], 06/02/2016 11:19:48 06/02/20 16 06/02/2016 BMP, serum or plasm a GFR - if 111.9 mL/mi n For Afric an Ameri can patie nts: Resul ts Multi plied by 1.21 Not Available [address], [address], 06/02/2016 11:19:48 06/02/20 16 06/02/2016 BMP, serum or plasm a sodium 144 mmol/ L 136-14 5 Not Available [address], [address], 06/02/2016 11:19:48 06/02/20 16 06/02/2016 BMP, serum or plasm a potassium 4.5 mmol/ L 3.5-5. 1 Not Available [address], [address], 06/02/2016 11:19:48 06/02/20 16 06/02/2016 BMP, serum or plasm a chloride 105 mmol/ L 96-107 Not Available [address], [address], 06/02/2016 11:19:48 06/02/20 16 06/02/2016 BMP, serum or plasm a anion gap 10.1 5.0-15 .0 Not Available [address], [address], 06/02/2016 11:19:48 06/02/20 16 06/02/2016 BMP, serum or plasm a CO2 29 mmol/ L 21-32 Not Available [address], [address], 06/02/2016 11:19:48 06/02/20 16 06/02/2016 BMP, serum or plasm a calcium 9.3 mg/dL 8.5-10 .3 Not Available [address], [address], 06/02/2016 11:19:48 06/02/20 16 06/02/2016 lipid panel , serum cholesterol 184 mg/dL <200 mg/dl Jonathon able 200-2 39 mg/dl Borde rline High >240 mg/dl High Not Available [address], [address], 06/02/2016 11:19:49 06/02/2006/02/2016 lipid panel , serum triglyceride s 116 mg/dL <150 mg/dL Mariam l 150-1 99 mg/dL Borde rline High 200-4 99 mg/dL High >500 mg/dL Very High Not Available [address], [address], 06/02/2016 11:19:49 06/02/2006/02/2016 lipid panel , serum direct HDL 45 mg/dL Not Available [address], [address], 06/02/2016 11:19:49 06/02/20 16 06/02/2016 LDL, calcu [...] r is not sergocristel arash. Not Available [address], [address], 06/02/2016 11:19:49 06/02/20 16 06/02/2016 HbA1c (hemo globi n A1c), blood hemoglobin A1C 7.7 % 4.8-6. 0 high Goal: <7% in Patie nts with Diabe brisa Not Available [address], [address], 06/02/2016 11:26:54 06/02/20 16 06/02/2016 HbA1c (hemo globi n A1c), blood estimated average glucose 174.3 mg/dL Not Available [address], [address], 06/02/2016 11:26:54 06/02/20 16 06/02/2016 micro album in, urine microalbumin 19.7 mg/L 1.3-20 .0 Not Available [address], [address], 06/02/2016 12:41:00 06/02/20 16 06/02/2016 micro album in, urine creatinine urine 201.4 mg/dL 30.0-1 25.0 high Not Available [address], [address], 06/02/2016 12:41:00 06/02/20 16 06/02/2016 micro album in, urine microalb/cre at ratio 9.8 mg/g_ creat 0.0-29 .0 Not Available [address], [place], [address], 06/02/2016 12:41:00 03/08/20 17 03/08/2017 urina lysis , refle x cultu re color Yellow Not Available [address], [address], 03/08/2017 21:57:08 03/08/20 17 03/08/2017 urina lysis , refle x cultu re appearance Clear Not Available [address], [address], 03/08/2017 21:57:08 03/08/20 17 03/08/2017 urina lysis , refle x cultu re specific gravity <=1.00 5 1.005- 1.030 Not Available [address], [address], 03/08/2017 21:57:08 03/08/20 17 03/08/2017 urina lysis , refle x cultu re pH 6.0 5.0-7. 0 Not Available [address], [address], 03/08/2017 21:57:08 03/08/20 17 03/08/2017 urina lysis , refle x cultu re protein Negati ve negati ve Not Available [address], [address], 03/08/2017 21:57:08 03/08/20 17 03/08/2017 urina lysis , refle x cultu re glucose 3+ negati ve abnormal Not Available [address], 13196, 03/08/2017 21:57:08 03/08/20 17 03/08/2017 urina lysis , refle x cultu re ketones Negati ve negati ve Not Available [address], [address], 03/08/2017 21:57:08 03/08/20 17 03/08/2017 urina lysis , refle x cultu re bilirubin Negati ve negati ve Not Available [address], [address]249, 03/08/2017 21:57:08 03/08/20 17 03/08/2017 urina lysis , refle x cultu re blood Negati ve negati ve Not Available [address], [address], 03/08/2017 21:57:08 03/08/20 17 03/08/2017 urina lysis , refle x cultu re nitrite Negati ve negati ve Not Available [address], [address]79, 03/08/2017 21:57:08 03/08/20 17 03/08/2017 urina lysis , refle x cultu re leukocyte esterase Negati ve negati ve Not Available [address], [address]39, 03/08/2017 21:57:08 03/08/20 17 03/08/2017 CBC w/ auto diff WBC 5.6 K/uL 3.4-11 .2 Not Available [address], [address], 03/08/2017 21:57:30 03/08/20 17 03/08/2017 CBC w/ auto diff RBC 4.86 M/uL 4.50-5 .50 Not Available [address], [address], 03/08/2017 21:57:30 03/08/20 17 03/08/2017 CBC w/ auto diff hemoglobin 14.0 g/dL 13.0-1 7.0 Not Available [address], [address], 03/08/2017 21:57:30 03/08/20 17 03/08/2017 CBC w/ auto diff hematocrit 38.7 % 40.0-5 1.0 low Not Available [address], [address], 03/08/2017 21:57:30 03/08/20 17 03/08/2017 CBC w/ auto diff MCV 79.6 fL 79.0-9 8.0 Not Available [address], 78161, 03/08/2017 21:57:30 03/08/20 17 03/08/2017 CBC w/ auto diff MCH 28.8 pg 27.0-3 4.8 Not Available [address], [address], 03/08/2017 21:57:30 03/08/20 17 03/08/2017 CBC w/ auto diff MCHC 36.2 g/dL 31.5-3 6.0 high Not Available [address], [address], 03/08/2017 21:57:30 03/08/20 17 03/08/2017 CBC w/ auto diff RDW 12.9 % 10.8-1 4.6 Not Available [address], 95648, 03/08/2017 21:57:30 03/08/20 17 03/08/2017 CBC w/ auto diff MPV 10.8 fL 9.4-12 .4 Not Available [address], [address], 03/08/2017 21:57:30 03/08/20 17 03/08/2017 CBC w/ auto diff platelet count 207 K/uL 130-40 0 Not Available [address], 32066, 03/08/2017 21:57:30 03/08/20 17 03/08/2017 CBC w/ auto diff neutrophils 50.8 % 45.3-7 7.7 Not Available [address], [address], 03/08/2017 21:57:30 03/08/20 17 03/08/2017 CBC w/ auto diff lymphocytes 32.9 % 12.3-3 9.7 Not Available [address], [address], 03/08/2017 21:57:30 03/08/20 17 03/08/2017 CBC w/ auto diff monocytes 13.2 % 4.1-12 .8 high Not Available [address], [address], 03/08/2017 21:57:30 03/08/20 17 03/08/2017 CBC w/ auto diff eosinophils 2.70 % 0.00-7 .20 Not Available [address], 14163, 03/08/2017 21:57:30 03/08/20 17 03/08/2017 CBC w/ auto diff basophils 0.20 % 0.00-2 .80 Not Available [address], [address]61, 03/08/2017 21:57:30 03/08/20 17 03/08/2017 CBC w/ auto diff absolute neutrophil 2.9 K/uL 1.4-7. 7 Not Available [address], 97[address], 03/08/2017 21:57:30 03/08/20 17 03/08/2017 CBC w/ auto diff absolute lymphocyte 1.8 K/uL 0.6-3. 2 Not Available [address], [address], 03/08/2017 21:57:30 03/08/20 17 03/08/2017 CBC w/ auto diff absolute monocytes 0.7 K/uL 0.1-0. 6 high Not Available [address], 976[address], 03/08/2017 21:57:30 03/08/20 17 03/08/2017 CBC w/ auto diff absolute eosinophil 0.15 K/uL 0.01-0 .50 Not Available [address], 04190, 03/08/2017 21:57:30 03/08/20 17 03/08/2017 CBC w/ auto diff absolute basophils 0.01 K/uL Not Available [address], 88061, 03/08/2017 21:57:30 03/08/20 17 03/08/2017 CBC w/ auto diff immature granulocyte 0.20 % 0.00-0 .50 Not Available [address], 7[address]39, 03/08/2017 21:57:30 03/08/20 17 03/08/2017 CBC w/ auto diff absolute immature granulocyte 0.01 K/uL 0.00-0 .03 Not Available [address], [address]120, 03/08/2017 21:57:30 03/08/20 17 03/08/2017 CMP, serum or plasm a glucose 499 mg/dL 70-99 high Not Available [address], 89555, 03/08/2017 22:21:58 03/08/20 17 03/08/2017 CMP, serum or plasm a BUN 6 mg/dL 6-19 Not Available [address], 35061, 03/08/2017 22:21:58 03/08/20 17 03/08/2017 CMP, serum or plasm a creatinine 1.1 mg/dL 0.5-1. 5 Not Available [address], 15602, 03/08/2017 22:21:58 03/08/20 17 03/08/2017 CMP, serum [...] ages of 17 and 69. Not Available [address], [address], 03/08/2017 22:21:58 03/08/2003/08/2017 CMP, serum or plasm a sodium 136 mEq/L 133-14 6 Not Available [address], 9[address]39, 03/08/2017 22:21:58 03/08/20 17 03/08/2017 CMP, serum or plasm a potassium 4.2 mEq/L 3.3-5. 2 Not Available [address], 84736, 03/08/2017 22:21:58 03/08/2003/08/2017 CMP, serum or plasm a chloride 98 mEq/L 96-108 Not Available [address], [address]3077, 03/08/2017 22:21:58 03/08/2003/08/2017 CMP, serum or plasm a CO2 27 mEq/L 21-35 Not Available [address], 49[address], 03/08/2017 22:21:58 03/08/2003/08/2017 CMP, serum or plasm a calcium 9.4 mg/dL 8.4-10 .3 Not Available [address], 08958, 03/08/2017 22:21:58 03/08/2003/08/2017 CMP, serum or plasm a total bilirubin 0.4 mg/dL 0.0-1. 2 Not Available [address], 81410, 03/08/2017 22:21:58 03/08/2003/08/2017 CMP, serum or plasm a alkaline phosphatase 115 U/L 39-117 Not Available [address], [address], 03/08/2017 22:21:58 03/08/20 17 03/08/2017 CMP, serum or plasm a AST (SGOT) 11 U/L 0-37 Not Available [address], 13012, 03/08/2017 22:21:58 03/08/20 17 03/08/2017 CMP, serum or plasm a ALT (SGPT) 14 U/L 0-40 Not Available [address], 96673, 03/08/2017 22:21:58 03/08/20 17 03/08/2017 CMP, serum or plasm a total protein 7.4 g/dL 6.5-8. 0 Not Available [address], 31362, 03/08/2017 22:21:58 03/08/20 17 03/08/2017 CMP, serum or plasm a albumin 4.1 g/dL 3.9-4. 8 Not Available [address], 63696, 03/08/2017 22:21:58 03/08/20 17 03/08/2017 CMP, serum or plasm a globulin 3.3 gm/dL 1.0-4. 8 Not Available [address], [address]3577, 03/08/2017 22:21:58 03/08/20 17 03/08/2017 CMP, serum or plasm a A/G ratio 1.2 gm/dL 1.0-4. 8 Not Available [address], [address]247, 03/08/2017 22:21:58 03/08/20 17 03/08/2017 CMP, serum or plasm a anion gap 15 mEq/L 10-20 Not Available [address], [address]54, 03/08/2017 22:21:58 03/08/20 17 03/08/2017 C react alfreda prote in, QN, serum or plasm a C-reactive protein 0.24 mg/dL 0.00-0 .50 Not Available [address], 12595, 03/08/2017 22:21:58 03/08/20 17 03/08/2017 lipas e, serum or plasm a lipase 37 U/L 16-63 Not Available [address], 24364, 03/08/2017 22:21:59 10/16/19 18 10/16/2017 urina lysis , refle x cultu re color Yellow yellow Not Available [facility] [address] [place] [address], [address], 10/16/2017 15:03:07 10/16/19 18 10/16/2017 urina lysis , refle x cultu re clarity Clear Not Available [facility]) [address] [place] [address], [address], 10/16/2017 15:03:07 10/16/19 18 10/16/2017 urina lysis , refle x cultu re glucose 3+ negati ve abnormal Not Available [facility]) [address] [place] [address], [address], 10/16/2017 15:03:07 10/16/19 18 10/16/2017 urina lysis , refle x cultu re bili Negati ve negati ve Not Available [facility]) [address] [place] [address], [address], 10/16/2017 15:03:07 10/16/19 18 10/16/2017 urina lysis , refle x cultu re ketones Negati ve negati ve Not Available [facility] [address] [place], [address], 10/16/2017 15:03:07 10/16/19 18 10/16/2017 urina lysis , refle x cultu re specific gravity 1.010 1.005- 1.030 Not Available [facility] [address] [place], [address], 10/16/2017 15:03:07 10/16/19 18 10/16/2017 urina lysis , refle x cultu re blood Negati ve negati ve Not Available [facility] [address] [place], [address], 10/16/2017 15:03:07 10/16/19 18 10/16/2017 urina lysis , refle x cultu re pH 5.5 5.0-8. 0 Not Available [facility] [address] [place], [address], 10/16/2017 15:03:07 10/16/19 18 10/16/2017 urina lysis , refle x cultu re protein Negati ve negati ve Not Available [facility] [address] [place], [address], 10/16/2017 15:03:07 10/16/19 18 10/16/2017 urina lysis , refle x cultu re nitrite Negati ve negati ve Not Available [facility] [address] [place], [address], 10/16/2017 15:03:07 10/16/19 18 10/16/2017 urina lysis , refle x cultu re leukocyte esterase, ur Negati ve negati ve Not Available [facility] [address] [place], [address], 10/16/2017 15:03:07 10/16/19 18 10/16/2017 CBC w/ auto diff WBC 5.58 K/uL 3.40-1 1.20 Not Available [facility] [address] [place], [address], 10/16/2017 16:30:11 10/16/19 18 10/16/2017 CBC w/ auto diff RBC 4.75 M/uL 4.50-5 .50 Not Available [facility] [address] [place], [address], 10/16/2017 16:30:11 10/16/19 18 10/16/2017 CBC w/ auto diff HGB 13.7 g/dL 13.0-1 7.0 Not Available [facility] [address] [place], [address], 10/16/2017 16:30:11 10/16/19 18 10/16/2017 CBC w/ auto diff HCT 39.0 % 40.0-5 1.0 low Not Available [facility] [address] [place], [address], 10/16/2017 16:30:11 10/16/19 18 10/16/2017 CBC w/ auto diff plt 218 K/uL 130-40 0 Not Available [facility] (Outpatient) [address] [place], [address], 10/16/2017 16:30:11 10/16/19 18 10/16/2017 CBC w/ auto diff MCV 82.1 fL 79.0-9 8.0 Not Available [facility] (Outpatient) [address] [place], [address], 10/16/2017 16:30:11 10/16/19 18 10/16/2017 CBC w/ auto diff MCH 28.8 pg 27.0-3 4.8 Not Available [facility] (Outpatient) [address] [place], [address], 10/16/2017 16:30:11 10/16/19 18 10/16/2017 CBC w/ auto diff MCHC 35.1 g/dL 31.5-3 6.0 Not Available [facility] (Outpatient) [address] [place], [address], 10/16/2017 16:30:11 10/16/19 18 10/16/2017 CBC w/ auto diff RDW 12.8 % 10.8-1 4.6 Not Available [facility] (Outpatient) [address] [place], [address], 10/16/2017 16:30:11 10/16/19 18 10/16/2017 CBC w/ auto diff MPV 10.9 fL 9.4-12 .4 Not Available [facility] (Outpatient) [address] [place], [address], 10/16/2017 16:30:11 10/16/19 18 10/16/2017 CBC w/ auto diff NRBC 0.00 /100_ WBCs Not Available [facility] (Outpatient) [address] [place], [address], 10/16/2017 16:30:11 10/16/19 18 10/16/2017 CBC w/ auto diff absolute NRBC 0.00 K/uL Not Available [facility] (Outpatient) [address] [place], [address], 10/16/2017 16:30:11 10/16/19 18 10/16/2017 CBC w/ auto diff diff method Auto Not Available [facility] (Outpatient) [address] [place], [address], 10/16/2017 16:30:11 10/16/19 18 10/16/2017 CBC w/ auto diff neuts 54.2 % 45.30- 77.70 Not Available [facility] (Outpatient) [address] [place], [address], 10/16/2017 16:30:11 10/16/19 18 10/16/2017 CBC w/ auto diff lymphs 32.1 % 12.30- 39.70 Not Available [facility] (Outpatient) [address] [place], [address], 10/16/2017 16:30:11 10/16/19 18 10/16/2017 CBC w/ auto diff monos 10.4 % 4.10-1 2.80 Not Available [facility] (Out[facility]) [address] [place] [address], [address], 10/16/2017 16:30:11 10/16/19 18 10/16/2017 CBC w/ auto diff eos 2.7 % 0-7.2 Not Available [facility] (Outpatient) [address] [place] [address], [address], 10/16/2017 16:30:11 10/16/19 18 10/16/2017 CBC w/ auto diff basos 0.4 % 0-2.80 Not Available [facility] (Outpatient) [address] [place], [address], 10/16/2017 16:30:11 10/16/19 18 10/16/2017 CBC w/ auto diff granulocytes , immature (%) 0.2 % 0.0-0. 9 Not Available [facility] (Outpatient) [address] [place] [address], [address], 10/16/2017 16:30:11 10/16/19 18 10/16/2017 CBC w/ auto diff absolute neuts 3.03 K/uL 1.40-7 .70 Not Available [facility] (Outpatient) [address] [place], [address], 10/16/2017 16:30:11 10/16/19 18 10/16/2017 CBC w/ auto diff absolute lymphs 1.79 K/uL 0.60-3 .20 Not Available [facility] (Outpatient) [address] [place] [address], [address], 10/16/2017 16:30:11 10/16/19 18 10/16/2017 CBC w/ auto diff absolute monos 0.58 K/uL 0.11-0 .59 Not Available [facility] (Out[facility]) [address] [place], [address], 10/16/2017 16:30:11 10/16/19 18 10/16/2017 CBC w/ auto diff absolute eos 0.15 K/uL 0.01-0 .50 Not Available [facility] (Outpatient) [address] [place], [address], 10/16/2017 16:30:11 10/16/19 18 10/16/2017 CBC w/ auto diff absolute basos 0.02 K/uL 0.00-0 .08 Not Available [facility] (Outpatient) [address] [place], [address], 10/16/2017 16:30:11 10/16/19 18 10/16/2017 CBC w/ auto diff granulocytes , immature 0.01 K/uL 0.00-0 .05 Not Available [facility] (Outpatient) [address] [place], [address], 10/16/2017 16:30:11 10/16/19 18 10/16/2017 BMP, blood sodium 142 mmol/ L 133-14 6 Not Available [facility] (Out[facility]) [address] [place], [address], 10/16/2017 16:53:22 10/16/19 18 10/16/2017 BMP, blood chloride 105 mmol/ L 96-108 Not Available [facility] (Outpatient) [address] [place], [address], 10/16/2017 16:53:22 10/16/19 18 10/16/2017 BMP, blood potassium 4.7 mmol/ L 3.3-5. 1 Not Available [facility] (Out[facility] [address] [place], [address], 10/16/2017 16:53:22 10/16/19 18 10/16/2017 BMP, blood CO2 29 mmol/ L 21-35 Not Available [facility]Out[facility]) [address] [place] [address], [address], 10/16/2017 16:53:22 10/16/19 18 10/16/2017 BMP, blood BUN 6 mg/dL 6-19 Not Available [facility] ([facility]) [address] [place] [address], [address], 10/16/2017 16:53:22 10/16/19 18 10/16/2017 BMP, blood creatinine 0.90 mg/dL 0.5-1. 5 Not Available [facility] (Out[facility]) [address] [place] [address], [address], 10/16/2017 16:53:22 10/16/19 18 10/16/2017 BMP, blood glucose 229 mg/dL 70-99 high Not Available [facility] (Out[facility]) [address] [place] [address], [address], 10/16/2017 16:53:22 10/16/19 18 10/16/2017 BMP, blood calcium 9.6 mg/dL 8.4-10 .3 Not Available [facility] (Out[facility]) [address] [place] [address], [address], 10/16/2017 16:53:22 10/16/19 18 10/16/2017 BMP, blood eGFR >60 mL/mi n/1.7 3m2 >60 Abnor mal if <60. If patie nt is Afric an-Am kwabena n, multi ply the resul t by 1.21. Not Available [facility] (Out[facility]) [address] [place] [address], [address], 10/16/2017 16:53:22 10/16/19 18 10/16/2017 BMP, blood anion gap 13 mmol/ L 10-20 Not Available [facility]) [address] [place] [address], [address], 10/16/2017 16:53:22 10/16/19 18 10/16/2017 lipas e, serum or plasm a lipase 25 U/L 16-63 Not Available [facility] (Out[facility]) [address] [place], [address], 10/16/2017 16:53:24 10/16/19 18 10/16/2017 lfts (hepa tic panel ) alkaline phosphatase 98 U/L 39-117 Not Available [facility] (Outpatient) [address] [place], [address], 10/16/2017 16:53:26 10/16/19 18 10/16/2017 lfts (hepa tic panel ) total bilirubin 0.5 mg/dL 0-1.2 Not Available [facility]) [address] [place] [address], [address], 10/16/2017 16:53:26 10/16/19 18 10/16/2017 lfts (hepa tic panel ) direct bilirubin <0.2 mg/dL 0-0.3 Not Available [facility] [address] [place], [address], 10/16/2017 16:53:26 10/16/19 18 10/16/2017 lfts (hepa tic panel ) bilirubin (indirect) NOT CALCUL ATED mg/dL 0-1.5 Not Available [facility]) [address] [place] [address], [address], 10/16/2017 16:53:26 10/16/19 18 10/16/2017 lfts (hepa tic panel ) AST 14 U/L 0-37 Not Available [facility]) [address] [place] [address], [address], 10/16/2017 16:53:26 10/16/19 18 10/16/2017 lfts (hepa tic panel ) ALT 16 U/L 0-40 Not Available [facility]) [address] [place], [address], 10/16/2017 16:53:26 10/16/19 18 10/16/2017 lfts (hepa tic panel ) total protein 7.4 g/dL 6.5-8. 0 Not Available [facility] [address] [place], [address], 10/16/2017 16:53:26 10/16/19 18 10/16/2017 lfts (hepa tic panel ) albumin 4.3 g/dL 3.9-4. 8 Not Available [facility] [address] [place], [address], 10/16/2017 16:53:26 10/16/19 18 10/16/2017 lfts (hepa tic panel ) globulin 3.1 g/dL 1-4.8 Not Available [facility] [address] [place], [address], 10/16/2017 16:53:26 10/16/19 18 10/16/2017 lfts (hepa tic panel ) A/G ratio 1.39 ratio 1.00-4 .80 Not Available [facility] [address] [place], [address], 10/16/2017 16:53:26 04/12/20 16 04/12/2016 XR, chest , 2 view No observ ation record ed. [email or web address] [facility] [address] [place], [address], 04/18/2016 07:51:26 06/16/20 16 04/12/2016 chest 2 [...] DORIAN MON MD 2015 06:35 AM mmastroberti [facility] [address] [facility], [place], [address], 06/17/2016 10:45:13 03/09/20 17 03/09/2017 CT, abdom [...] . Initia l report render ed by [facility]. POS - CDHRAD BOARDW S7 Electr onical ly Signed by: MO CERON on 017 10:12 AM Techno logist : NINI MONICA, KEVIN Transc ribed by: Yuli allen, PS360 Result s 2016 10:04 AM Electr onical ly Signed By: MO CERON MD 2016 10:12 AM [facility] [address] [place] [address], [address], 03/13/2017 13:11:35 10/17/19 18 10/16/2017 xr abdom [...] P.S. LQP X 7 MONTHS ROBLES ISAAC [facility] [address] [place], [address], 10/17/2017 08:11:32 Result Notes None recorded. Problems Name Problem SNOMED Code Status Onset Date Resolution Date Notes Provider Name and Address Organization Details Recorded Time Essential hypertensio n 94965831 Completed 01/20/2016 Robles Isaac MD [address] [place], [place] [address], [address], [facility] 6 23:10:47 Diabetes mellitus 42780194 Completed 01/20/2016 Robles Isaac MD [address] [place], [place] [address], [address], [facility] 6 23:10:50 Skin lesion 44086906 Completed 01/20/2016 Robles hendrickson MD [address] [place], [place] [address], [address], [facility] 6 23:10:54 Benign essential hypertensio n 8909079 Active Robles Isaac MD [address] [place], [place] [address], [address], [facility] 6 08:53:56 Mixed hyperlipide muna 583951597 Active Robles Isaac MD [address] [place], [place] [address], [address], [facility] 6 08:53:56 Uncontrolle d type 2 diabetes mellitus 354667487 Active Robles Isaac MD [address] [place], [place] [address], [address], [facility] 6 08:53:56 Problem Notes None recorded. Procedures Surgical History Date Name Laterality Status Provider Name and Address Organization Details Recorded Time 6 POC Urinalysis Testing completed Yocasta [facility] 05/31/2016 16:24:56 4 Excision completed Robles Isaac MD [address] [place], [place] [address], [address], [facility] 10/15/2013 11:15:56 Imaging Results Imaging Date Name Status LastModified by Organiz ation Details LastModified Time 04/12/2016 XR, chest, 2 view completed [facility] [address] , [place], [address], 04/18/2016 07:51:26 04/12/2016 chest 2 V completed mmastroberti [facility] [address] [place], [address], 06/17/2016 10:45:13 03/09/2017 CT, abdomen + pelvis, w/o contrast completed [facility] [address] [place], [address], 03/13/2017 13:11:35 10/16/2017 xr abdomen series supine with decubitis/ere ct and single view chest completed [facility] [address] [place], [address], 10/17/2017 08:11:32 Procedure Notes None recorded. Medical [...] Available Not Available No t Available [employer] Lite kit active Not Available Not Available Not Available Vitals Date Recorded Body height Body weight Body mass index (BMI) Systolic blood pressure Diastolic blood pressure Provider Name and Address Organization Details Last Updated DateTime 05/03/2016 158.115 cm 08707.45 g 27.4 kg/m2 144 mm[Hg] 74 mm[Hg] Alessandra Orellana MA [facility] 6 08:30:54 Date Recorded Body height Heart rate Oxygen saturation Oxygen saturation in Arterial blood by Pulse oximetry Systolic blood pressure Diastolic blood pressure Provider Name and Address Organization Details Last Updated DateTime 6 158.115 cm 85 /min 98 % 98 % 142 mm[Hg] 88 mm[Hg] [facility] 6 16:06:44 Date Recorded Body height Systolic blood pressure Diastolic blood pressure Provider Name and Address Organization Details Last Updated DateTime 06/06/2016 158.115 cm 142 mm[Hg] 72 mm[Hg] [facility] 06/06/2016 09:58:35 Date Recorded Body height Body weight Body mass index (BMI) Systolic blood pressure Diastolic blood pressure Provider Name and Address Organization Details Last Updated DateTime 06/22/2016 158.115 cm 34168.26 g 27.3 kg/m2 150 mm[Hg] 80 mm[Hg] [facility] 6 11:20:12 Social History Question Answer Notes LastModified by Organizat ion Details LastModified Time Tobacco Smoking Status Never Smoker Alessandra Orellana MA [facility] 10/02/2013 10:35:52 What Is Your Level Of [...] 10/02/2013 What Is Your Occupation? Works At [employer] Information not available 10/02/2013 How Many Days [...] - Information not available 07/04/2016 Marital Status [facility] Info rmation not available 10/02/2013 How Many Children Do You Have? 5 Information not available 10/02/2013 Seat Belts Used Routinely Yes [facility] Information not available 10/02/2013 Smoke Alarm In Home Yes [facility] Information not available 10/02/2013 How Much Tobacco Do You Smoke? No [facility] Information not available 12/14/2015 General Stress Level [...] you have difficulty dressing or bathing? No [facility] Information not available 10/02/2013 Mental Status Question Answer Note LastModified by Organizat ion Details LastModified Time Do you have difficulty concentrating, remembering or making decisions? Yes [facility] Information n ot available 10/02/2013 Family History [...] Time Tdap 4 completed Not Available [facility] 09/28/2019 02:16:08 Influenza, split virus, quadrivalent, PF 4 completed Not Available [facility] 09/28/2019 02:18:56 pneumococcal polysaccharide PPV23 4 completed Not Available [facility] 09/28/2019 02:14:36 Influenza, split virus, trivalent, PF 4 completed Not Available [facility] 09/28/2019 02:19:21 Influenza, split virus, quadrivalent, PF 6 completed Not Available [facility] 09/28/2019 02:33:00 Past Encounters Encounter ID Performer Location Encounter Start Date Encounter Closed Date Diagnosis/Indication Diagnosis SNOMED-CT Code Diagnosis ICD10 Code Diagnosis Note [id number] [facility], OFFICE [address] [place] [address] 10/02/2013 10:13:34 10/02/2013 11:26:17 Essential hypertension 27717747 Elevated BP. Previously not engaged in care. Low salt diet recommende d. Start Chlorthali done. Will add SHUN-I once renal function establishe d. Follow up in 1 week. Advised to get fasting labwork tomorrow. Diabetes mellitus 56729130 Patient with new-onset diabetes. Symptoms of polydipsia [...] week. Screening for malignant neoplasm of colon 960904576 Skin lesion 81502405 Inv olving the left posterior upper arm. Likely epidermoid cyst. Schedule for an excision. No clinical evidence of cellulitis or acute abscess. Influenza vaccine needed [id number] 106 Administra tion of diphtheria, pertussis, and tetanus vaccine [id number] TINO Mendoza, [facility], OFFICE [address] [place] [address] 10/09/2013 09:59:46 10/09/2013 13:05:30 Essential hypertension 89949246 Previously not engaged in care. Tolerating Chlorthali done. BP improved. Low salt diet recommende d. Will add Lisinopril 2.5mg po daily. Repeat BMP at his next visit. Diabetes mellitus 96209943 Patient with new-onset diabetes. Symptoms of polydipsia [...] start SHUN-I. Follow up in 1 week. [id number] TINO Mendoza, [facility], OFFICE [address] [place] [address] 10/15/2013 10:06:38 10/15/2013 13:08:04 Diabetes mellitus 75728728 Patient with new-onset diabetes. Symptoms of polydipsia [...] in 1 week. Epidermoid cyst of skin 473791511 Non-infect ed, left upper arm cyst removed [...] week for wound check and suture removal. [id number] Robles Isaac MD , [facility], OFFICE [address] [place] [address] 10/23/2013 14:35:31 10/23/2013 15:12:07 Chest pain [id number] His symptoms of left-sided chest pain and [...] s for UC/ER use discussed. Skin lesion 15892592 Inv olving the left posterior upper arm. Sutures removed. Hypertroph ic scar and contact dermatitis noted. Purulent discharge expressed with suture removal. Wound care discussed. Gauze applied. Follow up early next week for a follow up. Consider General Surgery referral if not healed completely . [id number] TINO Mendoza, [facility], OFF[address] [place] [address] 10/30/2013 08:21:52 10/30/2013 08:54:16 Essential hypertension 67017861 Previously was not engaged in care. Tolerating Chlorthali done and Lisinopril . BP markedly improved. Low salt diet recommende d. Check BMP at his next visit. Diabetes mellitus 44278849 Patient with new-onset diabetes. Symptoms of polydipsia [...] ratio. SHUN-I started previously . Skin lesion 92426975 Inv olving the left posterior upper arm. Sutures removed last week. Hypertroph ic scar and contact dermatitis noted at the time. Now healing well. No fluctuance . Consider General Surgery referral if not healed completely . Chest pain 83764187 His symptoms of left-sided chest , SOB [...] symptoms. Indication s for UC/ER use discussed. [id number] TINO Stanley, [facility], OFF[address] [place] [address] 11/27/2013 09:03:19 11/27/2013 09:47:48 Diabetes mellitus 57188434 Patient with recent diagnosis of diabetes. Symptoms [...] elevated MA/Cr ratio. SHUN-I started. Essential hypertension 06126198 Previously was not engaged in care. Tolerating Chlorthali done. Erroneousl y stopped Lisinopril . Will resume. No intoleranc e issues. BP markedly improved. Low salt diet recommende d. Epidermoid cyst of skin 620786252 Non-infect ed, left upper arm cyst removed at his previous visit due to persistent pain. Patient with residual scarring. No current evidence of infection. [id number] Xigurwinder Watkins , [facility], OFF[address] [place] [address] 02/19/2014 11:04:44 02/19/2014 12:04:40 Adult health examination 867600605 See Risk Assessment and Lifestyle Change Counseling section above. Tdap vaccine UTD. PNA vaccine administer ed today. Home/vehic le/sexual safety reviewed. Not sexually active. Colonoscop y scheduled 03/2014. Counseling [id number] Benign ess ential hypertension 6086338 Previously was not engaged in care. Tolerating Chlorthali done and Lisinopril . BP markedly improved. Low salt diet recommende d. Mixed hyperlipidemia 512762443 Fair FLP with LDL 92. Would like better control given his underlying diabetes, but also struggles with polypharma cy. Low fat/choles terol diet and exercise recommende d. Diarrhea 45702369 Patien t with chronic diarrhea intermitte ntly. Recently evaluated by Dr. Basilio (GI). Scheduled to have a colonoscop y in 03/2014. Recent IgA mildly positive (other celiac markers negative). No BRBPR/boris na. No abdominal pain. Uncontroll ed type 2 diabetes mellitus 410271003 States home BS 140-200. Improved Hgb A1c [...] hydration discussed. Administra tion of pneumococcal vaccine [id number] Robles Isaac MD [facility], OFFICE [address] [place] [address] 04/09/2014 07:59:46 04/09/2014 08:49:22 Uncontrolled type 2 diabetes mellitus 775999852 States home BS 120-150. Overall improved Hgb [...] discussed. Ample oral hydration discussed. Essential hypertension 76951342 Previously was not engaged in care. Tolerating Chlorthali done. Erroneousl y stopped Lisinopril . Will resume. No intoleranc e issues. BP markedly improved. Will titrate up Lisinopril as needed. Low salt diet clayton carmen [id number] [facility], OFFICE [address] [place] [address] 07/07/2014 07:47:01 07/07/2014 08:23:26 Mixed hyperlipidemia 757586338 Patient with LDL of 150 (06/2014). However, his 10-year risk of RI is 7%. New AHA/ACC guideline discussed. Advised on low fat/choles terol diet and exercise. Influenza vaccine needed [id number] 106 Uncontroll ed type 2 diabetes mellitus 077811727 States home BS 100-160. Overall improved Hgb [...] discussed. Ample oral hydration discussed. Essential hypertension 35103459 Previously was not engaged in care. Tolerating Chlorthali done and Lisinopril . No intoleranc e issues. BP markedly improved. Low salt diet recommende d. [id number] MD GISSELL Huizar, [facility], [address] [place] [address] 11/25/2015 08:22:18 11/25/2015 09:20:28 Benign essential hypertension 4112317 I10 Blood pressure elevated. Lost insurance in 2013. Has been off his medication s. No CP/SOB/CUEVAS . Recommende d to continue to work on diet, exercise, and lowering salt intake. Will resume Lisinopril (but will hold off on Chlorthali done). Check BMP. Mixed hyperlipidemia 267 177848 E78.2 Patient with previous LDL of 150 (06/2014). However, his 10-year risk of RI is 7%. New AHA/ACC guideline discussed. Advised on low fat/choles terol diet and exercise. Uncontrol ed type 2 diabetes mellitus 612454132 E11.65 Out of care for over 1 [...] oral hydration discussed. Unexplaine d weight loss 639459719 R63.4 Patient with 15 lbs weight loss since his last visit. Denies bleeding. Out of medication for over 1 year. Will continue to monitor. [id number] Robles Isaac MD , [facility], [address] [place] [address] 12/14/2015 10:17:02 12/15/2015 08:21:49 Benign essential hypertension 3160510 I10 Blood pressure improved. Lost insurance in 2013. Was off his medication s. No CP/SOB/CUEVAS . Recommende d to continue to work on diet, exercise, and lowering salt intake. Recently started Lisinopril (but will hold off on Chlorthali done). Mixed hyperlipidemia 267 384942 E78.2 Patient with previous LDL of 150 (06/2014). However, his 10-year risk of RI is 7%. New AHA/ACC guideline discussed. Advised on low fat/choles terol diet and exercise. Uncontroll ed type 2 diabetes mellitus 655510381 E11.65 Out of care for over 1 [...] medication s discussed. Ample oral hydration discussed. [id number] Robles Isaac MD , [facility], [address] [place] [address] 01/11/2016 08:21:26 01/11/2016 08:52:49 Benign essential hypertension 4840945 I10 Blood pressure elevated, but previously well [...] if persistent ly elevated. Mixed hyperlipidemia 267 415297 E78.2 Patient with previous LDL of 150 (06/2014). However, his 10-year risk of RI is 7%. New AHA/ACC guideline discussed. Advised on low fat/choles terol diet and exercise. Uncontroll ed type 2 diabetes mellitus 234239601 E11.65 Out of care for over 1 [...] hydration discussed. Right uppe r quadrant pain 280230848 R10.11 Patient with 1-week duration of RUQ abdominal pain. No clinical evidence of acute abdomen. Will check US to further evaluate. Advised to avoid high fat diet. Indication s for UC/ER use reviewed. [id number] Robles Isaac MD , [facility], [address] [place] [address] 01/20/2016 08:45:30 01/20/2016 09:28:43 Cholelithiasis without obstruction 98385969 K80.20 Patient with 1-week duration of RUQ abdominal pain. No clinical evidence of acute abdomen. Abdominal US revealed gallstones . Will refer to General Surgery for further evaluation . Advised to avoid high fat diet. Indication s for UC/ER use reviewed. Benign ess ential hypertension 9245292 I10 Blood pressure improved overall. Lost insurance in 2013. Was off his medication s. No CP/SOB/CUEVAS . Recommende d to continue to work on diet, exercise, and lowering salt intake. Recently started Lisinopril (but will hold off on Chlorthali done). Mixed hyperlipidemia 267 635461 E78.2 Patient with previous LDL of 150 (06/2014). However, his calculated 10-year risk of RI is 7%. New AHA/ACC guideline discussed. Advised on low fat/choles terol diet and exercise. Uncontroll ed type 2 diabetes mellitus 458698860 E11.65 Out of care for over 1 [...] medication s discussed. Ample oral hydration discussed. [id number] Robles Isaac MD , [facility], OFF[address] [place] [address] 05/03/2016 08:21:49 05/03/2016 08:48:10 Neuropathy 517175932 G62.9 Patient reports bilateral inner thigh numbness and tingling. No weakness. No urine incontinen ce symptoms. Trial of Gabapentin discussed. Uncontroll ed type 2 diabetes mellitus 222919305 E11.65 Recently increased the Glipizide dose. Previously [...] oral hydration discussed. Benign ess ential hypertension 6199074 I10 Blood pressure improved overall. Lost insurance in 2013. Was off his medication s. No CP/SOB/CUEVAS . Recommende d to continue to work on diet, exercise, and lowering salt intake. Recently started Lisinopril (but will hold off on Chlorthali done). [id number] PRABHU Mauricio-CALEB , [facility], [address] [place] [address] 05/31/2016 15:55:20 05/31/2016 16:50:42 Active or passive immunization 143959020 Z23 Diarrhea 20498208 R19.7 possibly secondary to surgery, poor historian, symptoms worsening in last 2 weeks. labs as ordered below. advised follow up within 4-7 days. Dysuria 97563038 R30.0 UA labs consistent with poorly controlled DM. culture pending. follow up with PCP, if symptoms worsen be seen. Uncontroll ed type 2 diabetes mellitus 971212131 E11.65 reviewed importance of blood sugar control. pt to follow up with pcp. [id number] , [facility], [address] [place] [address] 06/06/2016 09:54:11 06/06/2016 10:24:25 Diarrhea [id number] R19.7 possible s/e of metformin, change ir to ER, follow up in 2 weeks. Uncontroll ed type 2 diabetes mellitus [id number] E11.65 possible metformin contributi ng to diarrhea, change to ER. monitor diarrhea, follow up in 2 weeks for disease management re diarrhea and blood sugar. Shoulder pain [id number] M 25.512 subscapula r pain consistent with muscle strain. continue with supportive measures. [id number] Kyra Mauro, TRAFFIC OPERATIONS ENGINEER-[facility], OFFICE [address] [place] [address] 06/22/2016 11:10:57 06/24/2016 09:39:47 Shoulder joint pain [id number] M25.519 right sub scapular muscle spasm, pt notes weakness in right shoulder suggestive of rotator cuff involvemen t, but no focal weakness on exam , muscle tension noted. refer for PT, apply heat, follow up for failure to resolve. Diabetes mellitus [id number] E11.9 fasting sugar elevated, referral to DNE consider victoza or insulin. [id number] Julieta Barrett RN, BSN, [facility] DM Education , [facility] [address] [place] [address] 07/04/2016 07:51:58 07/08/2016 09:50:09 Uncontrolled type 2 diabetes mellitus [id number] E11.65 Met with Greg today for Type 2 diabetes, kindly referred by Kyra Mauro, STEPHANIE. Greg is accompanie d by his daughter, who helps to translate for him. He is Bahamian speaking. His daughter reports she lives with [...] Delong Member ID Guarantor Name 05/03/2016 1 [facility] - DIRECT CONNECTORCARE TYPE II (HMO) Greg Land [id number] Greg Emery 05/31/2016 1 [facility] - DIRECT CONNECTORCARE TYPE II (HMO) Greg Land [id number] 1 Gregnicho Land 06/06/2016 1 [facility] - DIRECT CONNECTORCARE TYPE II (HMO) Greg Land [id number] 1 [facility] Land 06/22/2016 1 [facility] - DIRECT CONNECTORCARE TYPE II (HMO) Greg Land [id number] 1 [facility] Land 07/04/2016 1 [facility] - DIRECT CONNECTORCARE TYPE II (HMO) Gregnicho Enriquezo [id number] 1 [facility] Land Notes Date Note Type Note Provider [...] undergone laparoscopic cholecystectomy in 02/2016. Went to [facility] ER 3 weeks ago due to CP. His CXR, CBC, Troponin and CMP all within normal, except for elevated BS. No recurring symptoms since. Robles Isaac MD [address] [place] [address], [phone], [facility] 05/03/2016 23:18:53 05/31/2016 text/html pt presents with [...] procedure. diarrhea worse. no fever. Kyra Mauro [address], [address], [facility] 06/05/2016 16:26:27 06/06/2016 text/html back pain, start [...] may be related to metformin. Kyra Mauro, [address], [address], [facility] 06/06/2016 10:22:13 06/22/2016 text/html pt has pain in b ack to front around shoulder pain is interfering with ability to sleep.pain lasts all day.feels as if the shoulder falls asleep and drops. Kyra Mauro [address], [address], [facility] 06/22/2016 11:34:50 07/04/2016 text/html Diabetes Self Management History & IntakeReported bypatient.Patient HistoryPatient chief complaint today:Needs help interpreting blood sugars; has a family history of diabetes; Completed Diabetes Self-Assessment Form received, reviewed and sent for chart upload. 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 Intake Form) Julieta Barrett RN, BSN, [address], [address], [facility] 07/04/2016 16:03:29
--- OUTSIDE RECORDS SUMMARY | 2024-11-13 18:09 | XMS_ITS | Encounter Summary ---
Author Organization [employer] Address [address] [facility] 7t [place] [address] Care Team Providers Care Electrolysis Investigator Name Role Phone Carolina Siddiqi MD Primary Care Provide r Encounter Details Date Type Department Care Team ([facility] st Contact Info) Description 07/19/2024 Orders Only [facility] [address] [place] [address] Carolina Siddiqi MD [address] [place] [address] Social History Tobacco Use Types Packs/Day Years [...] Description 12/10/2024 9:15 AM EDT Office Visit [facility] [address] [place] [phone] Carolina Siddiqi MD [address] [place] [address] documented as of this encounter Goals Goal [...] documented as of this encounter Care Teams Electrolysis Investigator Relationship Specialty Start Date End Date Carolina Siddiqi MD [address] [place] [phone] PCP - General Internal Medicine 07/11/23 Jolie Thompson Community Health Worker Case Management 02/14/24 documented as of this encounter
--- OUTSIDE RECORDS SUMMARY | 2024-11-13 18:09 | XMS_ITS | Clinical Summary ---
Author Organization [employer] Address [address] [facility] 7t [place] [address] Care Team Providers Care Digester Cook Name Role Phone Carolina Siddiqi MD Primary [...] hyperglycemia, without long-term current use of insulin ([facility]) Use to test blood sugar 2 times daily 100 each 12 024 2024 Active Blood Glucose Monitoring Suppl (FreeStyle [place] Lite) w/Device kitIndications:Ty pe 2 diabetes mellitus with hyperglycemia, without long-term current use of insulin ([facility]) Use to test blood sugar 2 times daily 1 kit Active sacubitril-valsar stoddard (Entresto) 97-103 MG tabletIndications :Primary hypertension,Horticultural Services Supervisor nilam systolic congestive heart failure ([facility]) Take 1 tablet by mouth 2 times daily. 60 tablet 12 024 2024 Active TRUEplus Lancets 33G miscIndications:T ype 2 diabetes mellitus with hyperglycemia, without long-term current use of insulin ([facility]) USE DIRECTED TO TEST BLOOD SUGAR EVERY DAY 100 each 11 Active glucose blood (FREESTYLE LITE) test stripIndications: Type 2 diabetes mellitus with hyperglycemia, without long-term current use of insulin ([facility]) USE DIRECTED TO TEST BLOOD SUGAR ONCE [...] hyperglycemia, without long-term current use of insulin ([facility]) USE DIRECTED TO TEST BLOOD SUGAR TWICE DAILY 100 each 3 025 Active fluticasone (Flonase) 50 MCG/ACT nasal sprayIndications: Rhinitis, unspecified type Administer 1-2 sprays into each nostril Once per day. Shake gently. Before first use, prime pump. After use, clean tip and replace cap. 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 Also showed 60 % stenosis in mid RCA + Severe diffuse disease in the left PDA--> med management Assessment & Plan (02/26/2024 12:16 PM EDT): C.Cath on 12/21/23 at [facility]: Severe LAD disease + D1 stenosis--> [...] stage. ?? PLAN: 1. Follow up with [facility]: Not recommended for follow-up 2. Patient goal is to improve health 3. Behavioral Recommendations a. Comply with medical recommendations b. Begin incorporating healthy changes in daily life c. May utilize [facility] and/or hotline, if symptoms worsen d. May reach out to [facility] for additional support Assessment & Plan (07/11/2023 1:04 PM EDT): [facility] call counseling done, he declines for now [...] Type Department Care Team Description 10/25/2024 Refill [facility] & [facility] [address] [place] [address] Carolina Siddiqi MD Type 2 diabetes mellitus with hyperglycemia, without long-term current use of insulin ([facility]) 10/24/2024 Orders Only [facility] External Provider, [facility] 10/01/2024 10:00 AM EST Office Visit [facility] [address] [place] [address] Carolina Siddiqi MD COVID-19 (Primary Dx); Rhinitis, unspecified type; Both eyes affected by mild nonproliferative diabetic retinopathy with macular edema, associated with type 2 diabetes mellitus ([facility]); Chronic systolic congestive heart failure ([facility]) 10/01/2024 Travel 09/19/2024 Patient Outreach [facility] [address] [place] [address] Carolina Siddiqi MD Pre-visit Planning ([facility] screening completed on 12/31/2024) 09/13/2024 Orders Only GENERIC EXTERNAL DATA DEPARTMENT Provider, Generic External Data 09/12/2024 Refill [facility] [address] [place] [address] Carolian Siddiqi MD Type 2 diabetes mellitus with hyperglycemia, without long-term current use of insulin ([facility]) 08/22/2024 Telephone [facility] [address] [place], [place] [phone] Carolina Siddiqi MD 08/21/2024 Telephone [facility] [address] [place] [address] Heike Schaefer, RN Results 08/21/2024 Orders Only [facility] [address] [place] [address] Carolina Siddiqi MD Cricopharyngeal achalasia (Primary Dx) [...] Description 12/10/2024 9:15 AM EDT Office Visit [facility] [address] [place] [address] Carolina Siddiqi MD [address] [place] [address] Health Maintenance Due Date Last Done Comments [...] Additional history exists Eye Exam 01/16/2025 01/17/2024, 050 04/2024, 01/17/2024, Additional history exists Depression Screening [...] EST Narrative 10/25/2024 6:14 AM EST ? [facility] ?[address] ?[place] [address] ? Ultrasound Report ? Signed ? Patient: Land,Greg ?MR#: [id number] ?? 657 ? : 1960 ?Acct:[id number] ? Age/Sex: 64 / M ?ADM Date: 10/24/24 ? Loc: HO.US ? Attending Dr: Glenda PELLETIER-BC ? Ordering Physician: Glenda Rosa ?? Date of Service: 10/24/24 ?? Procedure(s): US abdomen limited ?? Accession Number(s): [id number] ? cc: Carolina Siddiqi MD; Glenda RosaP-BC ? CLINICAL HISTORY: K42.9 - Umbilical hernia [...] signed by Jorge Salter MD in OV> ?10/25/24612 ? DD/ 1 ? TD/TT: 10/25/24611 ? Digital Account Executive: ? Procedure Note Marlin, Image - 10/25/[address] [address] Ultrasound Report Signed Patient: Rosita Land#: [id number] : 9Acct:[id number] Age/Sex: 64 / MADM Date: 10/24/24 Loc: HO.US Attending Dr: Glenda Rosa [facility]- Ordering Physician: Glenda Rosa [facility] Date of Service: 10/24/24 Procedure(s): US abdomen limited Accession Number(s): [id number] cc: Carolina Siddiqi MD; Glenda Rosa [facility] CLINICAL HISTORY: K42.9 - Umbilical hernia [...] in OV> 10/25/24612 DD/ 1 TD/TT: 10/25/24611 Digital Account Executive: [facility] External Provider IMG US PROCEDURES Final Result * (ABNORMAL) POCT Rapid Covid-19 BinaxNOW (10/01/2024 10:34 AM EST) [facility] Rapid COVID Ag Positive QC Media Lot # [id number] Lot# Expiration Date [id number] Swab 10/01/2024 10:3 4 AM EST Result [facility] Carolina Mahajan MD POINT OF CARE TEST EN TER/EDIT ORDERABLES Final Result * Hepatic Function Panel (09/13/2024 9:46 AM EST) Pathologist [facility] Bilirubin, Total 0.7 0.0 - 1.0 mg/dL [facility] Bilirubin, Direct 0.2 0.0 - 0.5 mg/dL [facility] Aspartate Amino Transferase 23 5 - 37 U/L [facility] Alanine Aminotransferase 19 0 - 40 U/L [facility] Total Protein 7.2 6.5 - 8.0 g/dL [facility] Albumin Level 4.1 3.5 - 5.0 g/dL [facility] Alkaline Phosphatase 92 39 - 117 U/L [facility] Blood Venous blood specimen / Unknown 09/13/2024 9:46 AM EST 09/13/2024 9:46 AM EST us Carolina Mahajan MD LAB BLOOD ORDERABLES Final Result Performing Organization Address [facility] Co de Phone Number [facility] [address] [place] [phone] * Lipid Panel, Standard (09/13/2024 9:46 AM EST) Triglycerides 73 <150 mg/dL [facility] Comment:Desirable Triglyceri de: less than 150 mg/dLBorderline High Triglyceride 150-199 mg/dLHigh Triglyceride: 200-499 mg/dLVery High Triglyceride: greater than or equal to 5OO mg/dL Cholesterol 113 <200 mg/dL [facility] Comment:Desirable Cholestero l: less than 200 mg/dLBorderline High Cholesterol: 200-239 mg/dLHigh Cholesterol: greater than 239 mg/dL LDL Cholesterol Calculated 47 <100 mg/dL [facility] Comment:Desirable LDL: less than 100 mg/dLNear Optimal/Above Optimal LDL: 110- 129 mg/dLBorderline High LDL: 130-159 mg/dLHigh LDL: 160-189 mg/dLVery High LDL: greater than or equal to 190 mg/dL HDL Cholesterol 52 >40 mg/dL [facility] Comment:Desirable HDL: great er than 40 mg/dL Note: This HDL assay may give artificially low results in patients with liver disease. 09/13/2024 9:46 AM EST 09/13/2024 9:46 AM EST us Generic External Data Provider LAB BLOOD ORDERAB LES Final Result Performing Organization Address [facility] Co de Phone Number [facility] [address] [place] [phone] * (ABNORMAL) Basic Metabolic Panel (09/13/2024 9:46 AM EST) Sodium 145 135 - 145 mmol/L [facility] Potassium 4.8 3.3 - 5.1 mmol/L [facility] Chloride 114(H) 96 - 108 mmol/L [facility] Carbon Dioxide 27 22 - 29 mmol/L [facility] Anion Gap 9(L) 12 - 20 [facility] Urea Nitrogen (BUN) 14 9 - 16 mg/dL [facility] Creatinine, Serum 1.77(H) 0.5 - 1.4 mg/dL [facility] Estimated Glomerular Filt Rate 39 [facility] Comment:Chronic Kidney Disea se: Estimated GFR < 60 mL/min/1.93v4Ttgqgt Kidney Disease: Estimated GFR < 15 mL/min/1.73m2 Glucose 126(H) 60 - 115 mg/dL [facility] Calcium 9.1 8.4 - 10.2 mg/dL [facility] 09/13/2024 9:46 AM EST 09/13/2024 9:46 AM EST Generic External Data Provider LAB BLOOD ORDERAB LES Final Result Performing Organization Address City/State/[facility] Co de Phone Number [facility] [address] [place] [phone] * ECG 12 lead (08/19/2024 3:37 PM EST) Narrative Jenniffer Rousseau MD - 08/19/2024 3:37 PM EST Sinus rhythm, rate: 67bpm Left axis deviation Abnormal ECG [facility] ECG ORDERABLES Final Res ult * (ABNORMAL) POCT HGB A1C (07/01/2024 2:27 PM EDT) Hemoglobin A1C 6.5(A) 4.0 - 6.0 % QC Media Lot # [id number] Lot# Expiration Date [id number] Blood 07/01/2024 2:27 PM EDT us Anjana Josefa Mahajan MD POINT OF CARE TEST EN TER/EDIT ORDERABLES Final Result * Cologuard?? colon cancer screening (09/27/2023 8:35 AM EST) Cologuard Result Negative Negative 10/06/19 5:26 PM EST [employer] (CLIA #:[id number]) Comment: NEGATIVE TEST RESULT. A negative Cologuard [...] cancer. ??Following a negative Cologuard result, the [place] [employer] Society and U.S. Multi-Society Task Force screening guidelines recommend a Cologuard re-screening interval of 3 years. References: [place] [employer] Guideline for Colorectal Cancer Screening: https://www.cancer.org/cancer/ukqfj-nuazub-uuzted/yykodvkes-gigxtcprz-ftnmmfx/ac s-rec ommendations.html.; Kvng DK, oRse CR, Alaina LangK, Colorectal Cancer Screening: Recommendations for Physicians and Patients from the U.S. Multi-Society Task Force on Colorectal Cancer Screening , Am J Gastroenterology 2017; 112:2661-5612. TEST DESCRIPTION: Composite algorithmic analysis of stool [...] (Anamaria Morgan al, N Engl J Med 2014;370(14):7121-2074.) Cologuard may produce a false negative or false positive result (no colorectal cancer or precancerous polyp present at colonoscopy follow up). A negative Cologuard test result does not guarantee the absence of CRC or advanced adenoma (pre-cancer). The current Cologuard screening interval is every 3 years. ([place] [employer] and U.S. Multi-Society Task Force). Cologuard performance data in a 10,000 patient pivotal study using colonoscopy as the reference method can be accessed at the following location: www.DocSend.Mismi/results. Additional description of the Cologuard test process, warnings and precautions can be found at www.StorPoologImpacto Tecnologiasrd.com. Stool specimen (specimen) 09/27/2023 8:35 AM EST 09/28/2023 3:50 PM EST Carolina Mahajan MD LAB MOLECULAR DIAGNOS TICS ORDERABLES Final Result [employer] (CLIA #:[id number]) [address] [place] [address], [place] [phone] from Last 3 Months or Most Recently Relevant to Health Maintenance Insurance [employer] P[employer] Care Teams Digester Cook Relationship Specialty Start Date End Date Carolina Siddiqi MD [address] [place] [phone] PCP - General Internal Medicine 07/11/23 Jolie Thompson Community Health Worker Case Management 02/14/24
--- OUTSIDE RECORDS SUMMARY | 2024-11-13 18:09 | XMS_ITS | Encounter Summary ---
Author Organization [employer] Address [address] [facility] 7t [place] [address] Care Team Providers Care Car Runner Name Role Phone Carolina Siddiqi MD Primary Care Provide r Encounter Details Date Type Department Care Team (Late st Contact Info) Description 10/24/2024 Orders Only [facility] External Provider, [facility] Social History [...] t he electric, gas, oil or water [employer] threatened to shut off services in your [...] Upcoming Encounters Date Type Department Care Team ([facility] st Contact Info) Description 12/10/2024 9:15 AM EDT Office Visit [facility] [address] [place] [address] Carolina Siddiqi MD [address] [place] [address] documented as of this encounter Goals Goal [...] ? [facility] ?[address] ?[place] [address] ? Ultrasound Report ? Signed ? Patient: Land,Greg ?MR#: [id number] ?? 657 ? : 1960 ?Acct:[id number] ? Age/Sex: 64 / M ?ADM Date: 10/24/24 ? Loc: HO.US ? Attending Dr: Glenda DOBSONP-BC ? Ordering Physician: Glenda Rosa MARKETING PRODUCTION SPECIALIST-BC ?? Date of Service: 10/24/24 ?? Procedure(s): US abdomen limited ?? Accession Number(s): [id number] ? cc: Carolina Siddiqi MD; Glenda Rosa MARKETING PRODUCTION SPECIALIST-BC ? CLINICAL HISTORY: K42.9 - Umbilical hernia [...] ? DD/ 1 ? TD/TT: 10/25/24611 ? Tablet Coater: ? Procedure Note Deven Isaac - 10/25/2024 [place] [address] Ultrasound Report Signed Patient: Rosita Land#: [id number] 657 : 9Acct:[id number] Age/Sex: 64 / MADM Date: 10/24/24 Loc: HO.US Attending Dr: Glenda NICHOLSON Ordering Physician: Glenda Rosa Date of Service: 10/24/24 Procedure(s): US abdomen limited Accession Number(s): [id number] cc: Carolina Siddiqi MD; Glenda Rosa CLINICAL [...] in OV> 10/25/24612 DD/ 1 TD/TT: 10/25/24611 Tablet Coater: [facility] External Provider IMG US PROCEDURES Final Result documented in this encounter Visit Diagnoses Not on filedocumented in this encounter Additional Health Concerns Assessment Noted Time PHQ-9 Depression Total Score: 10 02/25/ 024 10:07 AM EDT documented as of this encounter Care Teams Car Runner Relationship Specialty Start Date End Date Carolina Siddiqi MD [address] [place] [address] PCP - General Internal Medicine 07/11/23 Jolie Thompson Community Health Worker Case Management 02/14/24 documented as of this encounter
--- OUTSIDE RECORDS SUMMARY | 2024-11-13 18:09 | XMS_ITS | Encounter Summary ---
Author Organization [employer] Address [address] [facility] 7t [place] [address] Care Team Providers Care Computer Lab Para Professional Name Role Phone Carolina Siddiqi MD Primary Care Provide r Reason for Visit * Reason Comments Med Refill Encounter Details Date Type Department Care Team ([facility] st Contact Info) Description 10/25/2024 Refill [facility] & PEDS [address] [place] [address] Carolina Siddiqi MD [address] [place] [address] Type 2 diabetes mellitus with hyperglycemia, without long-term current use of insulin ([facility]) Social History Tobacco Use Types Packs/Day [...] Description 12/10/2024 9:15 AM EDT Office Visit [facility] [address] [place] [phone] Carolina Siddiqi MD [address] [place] [address] documented as of this encounter Goals Goal [...] hyperglycemia, without long-term current use of insulin ([facility]) documented in this encounter Additional Health Concerns Assessment Noted Time PHQ-9 Depression Total Score: 10 024 10:07 AM EDT documented as of this encounter Care Teams Computer Lab Para Professional Relationship Specialty Start Date End Date Carolina Siddiqi MD [address] [place] [address] PCP - General Internal Medicine 07/11/23 Jolie Thompson Community Health Worker Case Management 02/14/24 documented as of this encounter
== END 2024-11-13 15:12 | disposition home or self-care (01) ==
LOC: HO.HKAM 14:58
PROVIDERS: PCP Nurse Practitioner Family; Visit Provider Internal Medicine Hypertension Specialist
DX: N18.9 Chronic kidney disease, unspecified (principal); I25.10 Atherosclerotic heart disease of native coronary artery without angina pectoris; I25.5 Ischemic cardiomyopathy; D64.9 Anemia, unspecified
CPT/HCPCS: 99214

== ENCOUNTER → 2024-11-13 14:58 | Outpatient (BNVA) | payer MEDICARE, SELFPAY | PROVIDERS: PCP Nurse Practitioner Family; Visit Provider Internal Medicine Hypertension Specialist | DX: E11.22 Type 2 diabetes mellitus with diabetic chronic kidney disease (principal); I25.10 Atherosclerotic heart disease of native coronary artery without angina pectoris; I25.5 Ischemic cardiomyopathy; D63.1 Anemia in chronic kidney disease; N18.9 Chronic kidney disease, unspecified | CPT/HCPCS: 99212 ==

== ENCOUNTER 2025-01-07 11:15 | Outpatient (AMB) | payer MEDICARE, SELFPAY ==
--- NOTE | 2025-01-07 11:20 | A.OFFVIS_ITS ---
Vital Signs 01/07/25 11:21 Height 5 ft 3 in Weight 138 lb 14.259 oz BMI 24.6 BP 120/74 Blood Pressure Location Lt brachial Position Sitting Pulse 66 Intake Visit Reasons: 4m follow up/ clearance for colonoscopy Intake Note: 4 month follow-up with ekg pre-op clearance colonscopy Commercial Analyst Required: Yes Commercial Analyst Services: Commercial Analyst Offered & Declined Sticker Machine Operator: Sticker Machine Operator Present Accompanied by: Daughter Allergies No Known Allergies Allergy (Verified 11/13/24 14:56) Medication List - Last Reconciled 01/07/25 by Tan Mcwilliams MD aspirin 81 mg PO QAM atorvastatin 80 mg PO DAILY 90 days blood sugar diagnostic (Freestyle [employer] strips) As directed blood-glucose meter (Freestyle [employer] meter) As directed cholecalciferol (vitamin D3) 50 mcg PO DAILY dapagliflozin propanediol (Farxiga) 10 mg PO QAM dulaglutide (Trulicity) mg subcut QWEEK famotidine 20 mg PO BEDTIME lancets (FreeStyle Lancets) As directed lancets (ExacterTouch Delica Plus Lancet) As directed metoprolol succinate ER 50 mg PO DAILY nitroglycerin (Nitrostat) 0.4 mg sublingual Q5M PRN pantoprazole 40 mg PO QAM sacubitril-valsartan 97-103 mg (Entresto) 1 tab PO BID ticagrelor (Brilinta) 90 mg PO BID HPI Comments Details: Greg comes for follow-up, accompanied by his daughter who acts as supervisory lifeguard. Patient was scheduled to undergo colonoscopy in comes for clearance. Although talking to daughter says couple of times he went for long walks after exerting long time the following day he developed precordial chest pressure. This happened 2 days in a row. The 2nd day she did give him sublingual nitroglycerin with resolution of symptoms. Symptoms do not happen with exertion although he does not exert much because of his arthritis and walks with a cane. Denies any worsening shortness of breath, orthopnea, PND. No lightheadedness, syncope. No prolonged palpitation irregular heartbeat. Takes all his medications regularly. Last LDL was well optimized [facility] Medical History Acute HFrEF (heart failure with reduced ejection fraction) Diabetes HLD (hyperlipidemia) HTN (hypertension) Surgical History S/P cardiac catheterization S/P cardiac cath H/O heart artery stent Hx of appendectomy Social History Household Members: None Housing: Apartment Do you presently have visiting nurse or other home services: No Patient Tobacco Use Status: Tobacco use Unknown Review of Systems Const Denies chills, Denies fatigue, Denies fever(s), Denies frequent falls, Denies weakness, Denies weight gain and Denies weight loss ENT Denies dizziness Card Denies chest pain, Denies leg edema, Denies lightheadedness, Denies palpitations, Denies dyspnea, Denies dyspnea on exertion, Denies orthopnea and Denies other (loss of consciousness) Resp Denies cough, Denies dyspnea and Denies dyspnea on exertion GI Denies hematochezia and Denies change in stool character Musc Denies abnormal gait, Denies muscle weakness, Denies numbness, Denies radiating pain into limb and Denies tingling Neuro Denies abnormal gait, Denies dizziness, Denies frequent falls, Denies numbness, Denies tingling and Denies weakness Endo Denies fatigue and Denies palpitations Physical Exam Vital Signs: Last Vital Signs Pulse 66 01/07/25 11:21 BP 120/74 01/07/25 11:21 BMI result Body Mass Index 24.6 Const General: healthy appearing and no acute distress Orientation/consciousness: patient oriented x3 HEENT Head: Yes normal to inspection Eyes General: appearance normal, both eyes and all related structures Neck Neck: Yes normal visual inspection Chest Chest palpation & inspection: normal inspection of the chest Resp Effort & Inspection: normal respiratory effort Auscultation: clear to auscultation bilaterally Cardio Jugular venous distension: no JVD Palpation: abnormal PMI displaced PMI Rate: regular rate Rhythm: regular rhythm Heart sounds: S1 normal heart sound present, S2 normal heart sound present, no click, no gallops, no murmurs and no rubs GI Inspection: Yes normal to inspection Palpation (GI): Soft to palpation Skin General skin exam: no rashes or lesions noted Neuro General: patient oriented x3 Extrem General: Yes normal to inspection Psych Appearance: grossly normal Office Procedures EKG Details: EKG shows normal sinus rhythm with septal and lateral infarct pattern 19910-[id number], Complete Assessment & Plan Assessment & Plan (1) CAD (coronary artery disease): Code(s): I25.10 - Atherosclerotic heart disease of [place] coronary artery without angina pectoris Category: Medical Plan: CAD with prior anterior STEMI status post LAD drug-eluting stent for 100% lad occlusion in December of 2023. Currently still remains a dual antiplatelet therapy. He had 2 symptoms that are atypical for myocardial ischemia mostly happening the following day after significant exertion. However 1 of the episodes resolve with sublingual nitroglycerin. Will perform a vasodilating myocardial perfusion imaging to rule out any significant restenosis in his LAD territory. Continue dual antiplatelet therapy till then. If not will discontinue dual antiplatelet therapy and continue aspirin for lifelong. Continue 80 mg of atorvastatin with well optimized lipids. Continue current aggressive blood pressure and diabetes management. (2) Ischemic cardiomyopathy: Code(s): I25.5 - Ischemic cardiomyopathy Category: Medical Plan: Ischemic cardiomyopathy moderate LV systolic dysfunction without signs or symptoms of heart failure. Currently on neurohormonal modulation with Entresto, metoprolol also on Farxiga therapy although appears to be related to diabetes. No signs or symptoms of heart failure. These were discussed with the patient. Avoidance of salt loading was discussed. Follow-up echocardiogram 6 months time. (3) Preoperative cardiovascular examination: Code(s): Z01.810 - Encounter for preprocedural cardiovascular examination Plan: Preoperative cardiovascular risk stratification for colonoscopy although patient now is complaining of some symptoms suggestive of angina. Will require vasodilating myocardial perfusion imaging prior to undergoing colonoscopy. This was discussed with the patient. If myocardial perfusion imaging is within acceptable limits and has no significant ischemia will be optimized to undergo surgery with intermediate risk for perioperative cardiovascular morbidity mortality. His Brilinta would be stopped if the myocardial perfusion imaging is negative and aspirin can be withheld for 5-7 days prior to the procedure if required. Will follow up in the clinic in 6 months time, sooner p.r.n.. Thank you for allowing me to partake in his care Orders: Orders CA lexiscan stress w mi Today I25.10 - Atherosclerotic heart disease of [place] coronary artery without angina pectoris CA echo transthoracic complete 6 Months I25.5 - Ischemic cardiomyopathy Coding Level of Care Code Est Pt Level 4 (10601) Complex EM visit Add On G2211 Diagnoses CAD (coronary artery disease) I25.10 Ischemic cardiomyopathy I25.5 Preoperative cardiovascular examination Z01.810 CPT Codes EKG - CPT: 61101-Tkcjioawfwvnlpsar, Complete ([id number])
[2025-01-07 11:21] VITALS: BP 120/74; PULSE 66; BMI 24.6
--- OUTSIDE RECORDS SUMMARY | 2025-01-07 13:15 | XMS_ITS | Clinical Summary ---
Author Organization [employer] Address [address] [place] [address] Care Team Providers Care Manager Export Name Role Phone Carolina Siddiqi MD Primary [...] 1 tablet by mouth at bedtime. Active dapagliflozin (Farxiga) 10 MG Take 1 [...] hyperglycemia, without long-term current use of insulin ([facility]) Use to test blood sugar 2 times daily 100 each 12 024 2024 Active Blood Glucose Monitoring Suppl (FreeStyle [place] Lite) w/Device kitIndications:Ty pe 2 diabetes mellitus with hyperglycemia, without long-term current use of insulin ([facility]) Use to test blood sugar 2 times daily 1 kit Active sacubitril-valsar stoddard (Entresto) 97-103 MG tabletIndications :Primary hypertension,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 60 tablet 12 024 2024 Active TRUEplus Lancets 33G miscIndications:T ype 2 diabetes mellitus with hyperglycemia, without long-term current use of insulin ([facility]) USE DIRECTED TO TEST BLOOD SUGAR EVERY DAY 100 each 11 Active glucose blood (FREESTYLE LITE) test stripIndications: Type 2 diabetes mellitus with hyperglycemia, without long-term current use of insulin ([facility]) USE DIRECTED TO TEST BLOOD SUGAR ONCE DAILY 100 each 11 Active Blood Glucose Monitoring Suppl (ONE TOUCH ULTRA 2) w/Device kit Use to check BS twice daily as directed 1 kit Active glucose blood (OneTouch Ultra Test) test strip Use to check BS twice daily as directed 100 each 12 024 2024 Active Alcohol Swabs (Alcohol Prep) 70 % padsIndications:T ype 2 diabetes mellitus with hyperglycemia, without long-term current use of insulin ([facility]) USE DIRECTED TO TEST BLOOD SUGAR TWICE DAILY 100 each 3 Active fluticasone (Flonase) 50 MCG/ACT nasal sprayIndications: Rhinitis, unspecified type Administer 1-2 sprays into each nostril Once per day. Shake gently. Before first use, prime pump. After use, clean tip and replace cap. 16 g 025 2025 Active Lancets (OneTouch Delica Plus [id number]) miscIndications:T ype 2 diabetes mellitus with hyperglycemia, without long-term current use of insulin ([facility]) USE TO TEST BLOOD SUGAR TWICE DAILY DIRECTED 100 each 5 025 Active ciclopirox (Penlac) 8 % solutionIndicatio ns:Onycholysis Apply topically at bedtime. 6 mL 1 025 Active Trulicity 0.75 MG/0.5ML solution auto-injector Inject 0.75 mg as directed 1 (one) time per week. 2 mL 11 025 Active Brilinta 90 MG tablet TAKE 1 TABLET BY MOUTH TWICE DAILY IN THE MORNING AND IN THE EVENING 60 tablet Active Brilinta 90 MG tablet Take 1 tablet by mouth 2 times daily. 2024 Discontinued Trulicity 0.75 MG/0.5ML solution auto-injector Inject 0.75 mg as directed 1 (one) time per week. 024 2024 Discontinued(R eorder (will not trigger notification to Pharmacy)) acetaminophen (Tylenol Extra Strength) 500 MG tabletIndications :Primary osteoarthritis of right knee Take 2 tablets (1,000 mg) by mouth every 8 (eight) hours if needed for mild pain for up to 20 days. 40 tablet 2 025 2024 Active Problems Problem Noted Date Diagnosed Date Primary osteoarthritis of right knee 12/10/2024 COVID-19 10/01/2024 Assessment & Plan (10/01/2024 12:31 PM EST): I advise to drink plenty of water and rest Acetaminophen PRN Flovent once a day Quarantine as per CDC guidelines If worsening symptoms SOB, chest pain, confusion, he was instructed to call 911 or got to the emergency room TOMÁS Cintia could not be prescribe due to interactions [...] of right knee 07/01/2024 Assessment & Plan (12/10/2024 10:15 AM EDT): I will prescribe acetaminophen 1000 mg every 8 hours if needed I advised if pain is severe to elevate knee and apply some ice Continue to follow with orthopedics Assessment & Plan (07/01/2024 4:30 PM EDT): [...] artery disease of n ative artery of [place] heart with stable angina pectoris 01/26/2024 Overview (01/26/2024): C.Cath on 12/21/23 at [facility]: Severe LAD disease + D1 stenosis--> had PCI/drug eluting stent. Also showed 60 % stenosis in mid RCA + Severe diffuse disease in the left PDA--> med management Assessment & Plan (02/26/2024 12:16 PM EDT): C.Cath on 12/21/23 at [facility]: Severe LAD disease + D1 stenosis--> [...] control of DM and HTN. Onycholysis 11/27/2023 Assessment & Plan (12/10/2024 10:16 AM EDT): I will refer patient to podiatry I prescribed for patient ciclopirox liquid to apply at bedtime Colon cancer screening 09/12/2023 Unstable gait 09/12/2023 [...] in the context of medical issues, early skilled nursing, adjusting to living alone and language barrier. [...] stage. ?? PLAN: 1. Follow up with [facility]: Not recommended for follow-up 2. Patient goal is to improve health 3. Behavioral Recommendations a. Comply with medical recommendations b. Begin incorporating healthy changes in daily life c. May utilize [facility] and/or hotline, if symptoms worsen d. May reach out to [facility] for additional support Assessment & Plan (07/11/2023 1:04 PM EDT): BHN call counseling done, he declines for now medications Type 2 diabetes mellitus wit h hyperglycemia, without long-term current use of insulin 06/05/2023 Assessment & Plan (12/10/2024 10:16 AM EDT): Diabetes is: controlled - Lab Results Component Value Date HGBA1C 6.2 (A) 12/10/2024 HGBA1C 6.5 (A) 07/01/2024 HGBA1C 7.0 (A) 02/26/2024 - Lab Results Component Value Date CREATININE 1.77 (H) 09/13/2024 -Changes: None - Diabetic eye exam: Up-to-date - Diabetic foot exam: Referral done - Continue lifestyle modifications - Continue current medications - Follow up: 3 months Assessment & Plan (07/01/2024 4:31 PM EDT): [...] hyzaar 100/25mg and amlodipine 5mg, RTC with wi 2-3 weeks - Aerobic exercise to reduce [...] Encounters Date Type Department Care Team Description 12/27/2024 Refill [facility] [address] [place] [address] Carolina Siddiqi MD 12/11/2024 Refill [facility] [address] [place] [address] Carolina Siddiqi MD 12/10/2024 9:15 AM EDT Office Visit [facility] [address] [place] [address] Carolina Siddiqi MD Primary osteoarthritis of right knee (Primary Dx); Type 2 diabetes mellitus with hyperglycemia, without long-term current use of insulin ([facility]); Onycholysis; Chronic pain of right knee 12/10/2024 Travel 12/09/2024 Telephone [facility] [address] [place] [address] Carolina Siddiqi MD CHART PREP 11/29/2024 Telephone [facility] [address] [place] [address] Carolina Siddiqi MD Prior Authorization ([facility] Request: Trulicity) 11/29/2024 Patient Outreach [facility] [address] [place] [address] Carolina Siddiqi MD Pre-visit Planning ([facility] screening completed on 10/07/2024) 10/25/2024 Refill [facility] [address] [place], [place] [phone] Carolina Siddiqi MD Type 2 diabetes mellitus with hyperglycemia, without long-term current use of insulin ([facility]) 10/24/2024 Orders Only [facility] External Provider, [facility] from Last 3 Months Immunizations Name Administration [...] Passive Smoke Exposure: Never Smokeless Tobacco: Never Tobacco Cessation:Counseling Given: Not Answered Alcohol Use Standard Drinks/Week Comments Never 0 (1 standard drink = 0.6 oz pur e alcohol) Depression Answer Date Recorded Patient Health Questionnaire-9 Score 10 02/26/2024 Patient Health Questionnaire-9 Score 10 02/26/2024 Last PHQ-9: Questionnaire Data Not on file 0 02/26/2024 Housing Stability Answer Date Recorded What is your housing situation today? I have negritodougie phillips 07/03/[address] you [...] Sign Reading Time Taken Comments Blood Pressure 135/72 12/10/2024 9:20 AM EDT Pulse 72 12/10/2024 9:20 AM EDT Temperature 35.6 ??C (96 ??F) 12/10/2024 9:20 AM EDT Respiratory Rate 16 12/10/2024 9:20 AM EDT Oxygen Saturation 100% 12/10/2024 9:20 AM EDT Inhaled Oxygen Concentration - - Weight 60.8 kg (134 lb) 12/10/2024 9:20 AM EDT Height 160 cm (5' 3 ) 12/10/2024 9:20 AM EDT Body Mass Index 23.74 12/10/2024 9:20 AM EDT Plan of Treatment Health Maintenance Due Date Last Done Comments CT Colonography 1959 Colonoscopy 1959 FIT 1959 FOBT 1959 Sigmoidoscopy 1959 Diabetes: Foot Exam 1969 Hepatitis C Screening 1977 Diabetes: Urine Protein Screening 1978 DTaP/Tdap/Td Vaccines (2 - Td or Tdap) 10/02/2023 10/02/2013 COVID-19 Vaccine ( season) 2024 02/19/2021, 01/22/2021 Depression Monitoring 08/27/2024 02/26/2024, 024 Eye Exam 01/16/2025 01/17/2024, 05/0 04/2024, 01/17/2024, Additional history exists Depression Screening 02/25/2025 02/26/2024, 02/26/20 24 Diabetes: Hemoglobin A1C 06/11/2025 025, 07/01/2024, 02/26/2024, Additional history exists Alcohol/Substance Use Screening 07/01/2025 07/01/2024 Lipid Panel 09/13/2025 09/13/2024, 06/26/2024 SDOH Screening 10/01/2025 10/01/2024 Tobacco Screening 12/10/2025 12/10/2024 Colorectal Cancer Screening 09/27/2026 FIT DNA/Cologuard 09/27/2026 [...] Author Blood Pressure < 140/90 Blood Pressure 135/72(2024 9:20 AM EDT) No Ivana Puente, Ana Take your medication every day Lifestyle No Ivana Puente, Ana Hemoglobin A1c < 7 Result Component 6.2( 9:25 AM EDT) No Ivana Puente, Ana Procedures Procedure Name Priority Date/Time Associated Diagnosis Comments POCT GLYCATED HEMOGLOBIN, TOTAL Routine 12/10/2024 9:25 AM EDT Type 2 diabetes mellitus with hyperglycemia, without long-term current use of insulin (CMS/HCC) POCT GLUCOSE Routine 12/10/2024 9:23 AM EDT Type 2 diabetes mellitus with hyperglycemia, without long-term current use of insulin ([facility]) US ABDOMEN LIMITED Routine 10/25/2024 6: 12 AM EST LIPID PANEL, STANDARD Routine 09/13/2024 9:46 AM EST LAB COLOGUARD?? COLON CANCER SCREEN Routine 09/27/2023 8:35 AM EST Colon cancer screening from Last 3 Months or Most Recently Relevant to Health Maintenance Results * (ABNORMAL) POCT HGB A1C (12/10/2024 9:25 AM EDT) Hemoglobin A1C 6.2(A) 4.0 - 6.0 % QC Media Lot # [id number] Lot# Expiration Date 111,926 Blood 12/10/2024 9:25 AM EDT us Carolina Mahajan MD POINT OF CARE TEST EN TER/EDIT ORDERABLES Final Result * (ABNORMAL) POCT Glucose (12/10/2024 9:23 AM EDT) Glucose Blood, POC 208(A) 60 - 200 mg/dL QC Media Lot # [id number] Lot# Expiration Date 101,425 Blood Capillary blood specimen / Unknown 12/10/2024 9:23 AM EDT us Carolina Mahajan MD POINT OF CARE TEST EN TER/EDIT ORDERABLES Final Result * US Abdomen Limited (10/25/2024 6:12 AM EST) Anatomical Region Laterality Modality Abdomen Ultrasound 10/25/2024 6:12 AM EST Narrative 10/25/2024 6:14 AM EST ? [facility] ?[address] ?[place] [address] ? Ultrasound Report ? Signed ? Patient: Land,Greg ?MR#: [id number] ?? [id number] ? : 1960 ?Acct:[id number] ? Age/Sex: 64 / M ?ADM Date: 10/24/24 ? Loc: HO.US ? Attending Dr: Glenda NICHOLSON ? Ordering Physician: Glenda Rosa ?? Date of Service: 10/24/24 ?? Procedure(s): US abdomen limited ?? Accession Number(s): [id number] ? cc: Carolina Siddqii MD; Glenda Rosa ? CLINICAL HISTORY: K42.9 [...] DD/ 0612 ? TD/TT: 10/25/24 0612 ? Women'S Studies Professor: ? Procedure Note Marlin, Image - 10/25/2024 [facility] [address] [place] [id number] Ultrasound Report Signed Patient: Rosita Land#: [id number] : 9Acct:[id number] Age/Sex: 64 / MADM Date: 10/24/24 Loc: HO. Attending Dr: Glenda DOBSONP-BC Ordering Physician: Glenda RosaP-BC Date of Service: 10/24/24 Procedure(s): US abdomen limited Accession Number(s): [id number] cc: Carolina Siddiqi MD; Glenda Rosa [facility] CLINICAL HISTORY: K42.9 - Umbilical hernia [...] in OV> 10/25/24612 DD/ 1 TD/TT: 10/25/24611 Women'S Studies Professor: us [facility] External Provider IMG US PROCEDURES Final Result * Lipid Panel, Standard (09/13/2024 9:46 AM EST) Triglycerides 73 <150 mg/dL [facility] Comment:Desirable Triglyceri de: less than 150 mg/dLBorderline High Triglyceride 150-199 mg/dLHigh Triglyceride: 200-499 mg/dLVery High Triglyceride: greater than or equal to 5OO mg/dL Cholesterol 113 <200 mg/dL [facility] Comment:Desirable Cholestero l: less than 200 mg/dLBorderline High Cholesterol: 200-239 mg/dLHigh Cholesterol: greater than 239 mg/dL LDL Cholesterol Calculated 47 <100 mg/dL [facility] Comment:Desirable LDL: less than 100 mg/dLNear Optimal/Above Optimal LDL: 110- 129 mg/dLBorderline High LDL: 130-159 mg/dLHigh LDL: 160-189 mg/dLVery High LDL: greater than or equal to 190 mg/dL HDL Cholesterol 52 >40 mg/dL [facility] Comment:Desirable HDL: great er than 40 mg/dL Note: This HDL assay may give artificially low results in patients with liver disease. 09/13/2024 9:46 AM EST 09/13/2024 9:46 AM EST us Generic External Data Provider LAB BLOOD ORDERAB LES Final Result [facility] [address] [place] [phone] * Cologuard?? colon cancer screening (09/27/2023 8:35 AM EST) Cologuard Result Negative Negative 10/06/19 5:26 PM EST [facility] (CLIA #:[id number]) Comment: NEGATIVE TEST RESULT. A negative Cologuard [...] were screened with both Cologuard and colonoscopy. (Anaamria Doss. et al, N Engl J Med 2014;370(14):1286- 1297) The normal value (reference range) for this assay is negative. COLOGUARD RE-SCREENING RECOMMENDATION: Periodic colorectal cancer screening is an important part of preventive healthcare for asymptomatic individuals at average risk for colorectal cancer. ??Following a negative Cologuard result, the [place] [employer] Society and U.S. Multi-Society Task Force screening guidelines recommend a Cologuard re-screening interval of 3 years. References: [place] [employer] Guideline for Colorectal Cancer Screening: https://www.cancer.org/cancer/ritza-wcpxvx-oenzxi/bfxcqasdk-hyvjqqems-dezadmt/ac s-rec ommendations.html.; Kvng FINNEY, Rose HAYNES, Alaina GRIFFIN, Colorectal Cancer Screening: Recommendations for Physicians and Patients from the U.S. Multi-Society Task Force on Colorectal Cancer Screening , Am J Gastroenterology 2017; 112:3105-9027. TEST DESCRIPTION: Composite algorithmic analysis of stool [...] (Anamaria Morgan al, N Engl J Med 2014;370(14):6239-1680.) Cologuard may produce a false negative or false positive result (no colorectal cancer or precancerous polyp present at colonoscopy follow up). A negative Cologuard test result does not guarantee the absence of CRC or advanced adenoma (pre-cancer). The current Cologuard screening interval is every 3 years. ([place] [employer] Society and U.S. Multi-Society Task Force). Cologuard performance data in a 10,000 patient pivotal study using colonoscopy as the reference method can be accessed at the following location: www.Pixeon/results. Additional description of the Cologuard test process, warnings and precautions can be found at www.Bocandyrd.com. Stool specimen (specimen) 09/27/2023 8:35 AM EST 09/28/2023 3:50 PM EST us Carolina Mahajan MD LAB MOLECULAR DIAGNOS TICS ORDERABLES Final Result [facility] (CLIA #:[id number]) [address] [place] [address], from Last 3 Months or Most Recently Relevant to Health Maintenance Insurance [facility] [place] [phone] Care Teams Manager Export Relationship Specialty Start Date End Date Carolina Siddiqi MD [address] [place] [id number] PCP - General Internal Medicine 07/11/23 Jolie Thompson Community Health Worker Case Management 02/14/24
--- OUTSIDE RECORDS SUMMARY | 2025-01-07 13:15 | XMS_ITS | Encounter Summary ---
Author Organization [employer] Address [address] [facility] [address] [place] [address] Care Team Providers Care Stock Preparer Name Role Phone Carolina Siddiqi MD Primary Care Provide r Encounter Details Date Type Department Care Team ([facility] st Contact Info) Description 02/23/2024 Orders Only [facility] [address] [place] [address] Yeimi Saenz MD [address] [place] [address] Social History Tobacco Use Types Packs/Day Years [...] documented as of this encounter Care Teams Stock Preparer Relationship Specialty Start Date End Date Carolina Siddiqi MD [address] [place] [address] PCP - General Internal Medicine 07/11/23 Jolie Thompson Community [facility] Worker Case Management 02/14/24 documented as of this encounter
--- OUTSIDE RECORDS SUMMARY | 2025-01-07 13:15 | XMS_ITS | Data Portability ---
Author Organization [place] - [facility], , [facility] Address [address] [place] [address] Care Team Providers Care Plating Equipment Tender Name Role Phone ERIC HELLER General Surgeon Assessment No assessment recorded. Plan of Treatment Reminders Order Date Submit Date Provider Last Modified By Organization Details Last Modified Time Details Appointments None recorded. Lab hepatic function panel, serum - add on. 2015 016 [facility], [address] [place] [address], [address], 6 04:08:03 culture, urine 2015 016 [facility], [address] [place] [address], [address], 6 04:07:56 Referral diabetes management referral - turkmen speaker with elevated blood sugar, likely needs injectables , please assist with next steps for blood glucose management. 2015 016 Not available 6 04:08:57 physical therapist referral - pt with right scapular pain and some right shoulder pain with movements. please assist with rehabilitat ion 2015 016 [facility], [address] [place] [address], [id number], 6 04:08:57 Procedures None recorded. Surgeries None recorded. Imaging None recorded. Medication Orders metformin ER 1,000 mg tablet,exte nded release 24hr (osmotic) 2015 016 [place] [address] ([facility]), [address] [place], [id number], 6 04:07:36 glipizide 10 mg tablet 2015 016 [place] [address] ([facility] [address] [place], [id number], 6 04:06:44 metformin 1,000 mg tablet 2015 016 [place] [address] ([facility] [address] [place], [id number], 6 04:05:56 lisinopril 2.5 mg tablet 2015 016 [place] [address] ([facility]), [address] [place], [id number], 6 04:06:25 gabapentin 300 mg capsule 2015 016 [place] [address] ([facility]27), [address] [place], [id number], 6 04:06:27 Patient TargetsNo targets recorded. Patient Instructions Encounter Date Encounter Id Patient Instructions Last Modified By Organization Details Last Modified Time 05/03/2016 [id number] Spent 25 minutes of [id number] time, of which greater than 50% was in counseling. After a discussion of treatment options, which included consideration of best practices and patient preferences, the above treatment plan and objectives were adopted. fkim Not available 05/03/2016 23:18:31 07/04/2016 [id number] -Start testing blood sugar more often, at [...] Kyra Mauro, Family Medicine, Encounter Date: 06/22/2016 turkmen speaker with elevate d blood sugar, likely needs injectables, please assist with next steps for blood glucose management. Referring Physician: Kyra Mauro, Family Medicine, Encounter Date: 06/22/2016 Results Created Date Observation Date Name Description Value Unit Range Abnormal Flag Note LastModifiedBy Organization Detail LastModifiedTime 04/12/20 16 04/12/2016 CBC w/ auto diff WBC 5.8 K/uL 3.4-11 .2 Not Available [address], [address], 04/12/2016 01:57:38 04/12/20 16 04/12/2016 CBC w/ auto diff RBC 4.71 M/uL 4.50-5 .50 Not Available [address], [address], 04/12/2016 01:57:38 04/12/20 16 04/12/2016 CBC w/ auto diff hemoglobin 13.8 g/dL 13.0-1 7.0 Not Available [address], [address], 04/12/2016 01:57:38 04/12/20 16 04/12/2016 CBC w/ auto diff hematocrit 38.1 % 40.0-5 1.0 low Not Available [address], [address], 04/12/2016 01:57:38 04/12/20 16 04/12/2016 CBC w/ auto diff MCV 80.9 fL 79.0-9 8.0 Not Available [address], [address], 04/12/2016 01:57:38 04/12/20 16 04/12/2016 CBC w/ auto diff MCH 29.3 pg 27.0-3 4.8 Not Available [address], [address], 04/12/2016 01:57:38 04/12/20 16 04/12/2016 CBC w/ auto diff MCHC 36.2 g/dL 31.5-3 6.0 high Not Available [address], [address], 04/12/2016 01:57:38 04/12/20 16 04/12/2016 CBC w/ auto diff RDW 12.9 % 10.8-1 4.6 Not Available [address], [address], 04/12/2016 01:57:38 04/12/20 16 04/12/2016 CBC w/ auto diff MPV 10.4 fL 9.4-12 .4 Not Available [address], [address], 04/12/2016 01:57:38 04/12/20 16 04/12/2016 CBC w/ auto diff platelet count 204 K/uL 130-40 0 Not Available [address], [address], 04/12/2016 01:57:38 04/12/20 16 04/12/2016 CBC w/ auto diff neutrophils 49.9 % 45.3-7 7.7 Not Available [address], [address], 04/12/2016 01:57:38 04/12/20 16 04/12/2016 CBC w/ auto diff lymphocytes 35.0 % 12.3-3 9.7 Not Available [address], [address], 04/12/2016 01:57:38 04/12/20 16 04/12/2016 CBC w/ auto diff monocytes 10.8 % 4.1-12 .8 Not Available [address], [address], 04/12/2016 01:57:38 04/12/20 16 04/12/2016 CBC w/ auto diff eosinophils 3.80 % 0.00-7 .20 Not Available [address], [address]378, 04/12/2016 01:57:38 04/12/20 16 04/12/2016 CBC w/ auto diff basophils 0.30 % 0.00-2 .80 Not Available [address], [address], 04/12/2016 01:57:38 04/12/20 16 04/12/2016 CBC w/ auto diff absolute neutrophil 2.9 K/uL 1.4-7. 7 Not Available [address], [address], 04/12/2016 01:57:38 04/12/2004/12/2016 CBC w/ auto diff absolute lymphocyte 2.0 K/uL 0.6-3. 2 Not Available [address], 76176, 04/12/2016 01:57:38 04/12/2004/12/2016 CBC w/ auto diff absolute monocytes 0.6 K/uL 0.1-0. 6 Not Available [address], 94170, 04/12/2016 01:57:38 04/12/2004/12/2016 CBC w/ auto diff absolute eosinophil 0.22 K/uL 0.01-0 .50 Not Available [address], [address], 04/12/2016 01:57:38 04/12/20 16 04/12/2016 CBC w/ auto diff absolute basophils 0.02 K/uL Not Available [address], 77658, 04/12/2016 01:57:38 04/12/20 16 04/12/2016 CBC w/ auto diff immature granulocyte 0.20 % 0.00-0 .50 Not Available [address], [address], 04/12/2016 01:57:38 04/12/20 16 04/12/2016 CBC w/ auto diff absolute immature granulocyte 0.01 K/uL 0.00-0 .03 Not Available [address], [address]2724, 04/12/2016 01:57:38 04/12/20 16 04/12/2016 tropo lenore T, serum troponin T <0.010 NG/mL 0.000- 0.030 Not Available [address], [address], 04/12/2016 02:21:34 04/12/20 16 04/12/2016 CMP, serum or plasm a glucose 289 mg/dL 70-99 high Not Available [address], [address], 04/12/2016 02:21:35 04/12/2004/12/2016 CMP, serum or plasm a BUN 10 mg/dL 6-19 Not Available [address], [address], 04/12/2016 02:21:35 04/12/20 16 04/12/2016 CMP, serum or plasm a creatinine 0.9 mg/dL 0.5-1. 5 Not Available [address], [address], 04/12/2016 02:21:35 04/12/20 16 04/12/2016 CMP, serum [...] ages of 17 and 70. Not Available [address], [address], 04/12/2016 02:21:35 04/12/2004/12/2016 CMP, serum or plasm a sodium 137 mEq/L 133-14 6 Not Available [address], 58[address], 04/12/2016 02:21:35 04/12/2004/12/2016 CMP, serum or plasm a potassium 4.1 mEq/L 3.3-5. 1 Not Available [address], 85256, 04/12/2016 02:21:35 04/12/2004/12/2016 CMP, serum or plasm a chloride 99 mEq/L 96-108 Not Available [address], [address], 04/12/2016 02:21:35 04/12/2004/12/2016 CMP, serum or plasm a CO2 26 mEq/L 21-35 Not Available [address], 78099, 04/12/2016 02:21:35 04/12/2004/12/2016 CMP, serum or plasm a calcium 9.4 mg/dL 8.4-10 .3 Not Available [address], [address], 04/12/2016 02:21:35 04/12/2004/12/2016 CMP, serum or plasm a total bilirubin 0.6 mg/dL 0.0-1. 2 Not Available [address], [address], 04/12/2016 02:21:35 04/12/20 16 04/12/2016 CMP, serum or plasm a alkaline phosphatase 87 U/L 39-117 Not Available [address], [address], 04/12/2016 02:21:35 04/12/20 16 04/12/2016 CMP, serum or plasm a AST (SGOT) 13 U/L 0-37 Not Available [address], [address], 04/12/2016 02:21:35 04/12/20 16 04/12/2016 CMP, serum or plasm a ALT (SGPT) 19 U/L 0-40 Not Available [address], [address], 04/12/2016 02:21:35 04/12/2004/12/2016 CMP, serum or plasm a total protein 6.9 g/dL 6.5-8. 0 Not Available [address], [address], 04/12/2016 02:21:35 04/12/2004/12/2016 CMP, serum or plasm a albumin 4.0 g/dL 3.9-4. 8 Not Available [address], 84681, 04/12/2016 02:21:35 04/12/2004/12/2016 CMP, serum or plasm a globulin 2.9 gm/dL 1.0-4. 8 Not Available [address], 7[address], 04/12/2016 02:21:35 04/12/2004/12/2016 CMP, serum or plasm a A/G ratio 1.4 gm/dL 1.0-4. 8 Not Available [address], [address], 04/12/2016 02:21:35 04/12/2004/12/2016 CMP, serum or plasm a anion gap 16 mEq/L 10-20 Not Available [facility] [address] [facility], [place], [address], 04/12/2016 02:21:35 05/31/20 16 05/31/2016 POC UA glu UA 1+ abnormal Not Available [address], [address], 05/31/2016 16:34:04 05/31/20 16 05/31/2016 POC UA clarity UA Slight ly Cloudy Not Available [address], [address], 05/31/2016 16:34:04 05/31/20 16 05/31/2016 POC UA uro UA 1.0000 Not Available [address], [address], 05/31/2016 16:34:04 05/31/20 16 05/31/2016 POC UA ket UA Negati ve Not Available [address], 15[address], 05/31/2016 16:34:04 05/31/20 16 05/31/2016 POC UA pro UA Trace abnormal Not Available [address], [address], 05/31/2016 16:34:04 05/31/20 16 05/31/2016 POC UA nit UA Negati ve Not Available [address], [address], 05/31/2016 16:34:04 05/31/20 16 05/31/2016 POC UA neida UA Negati ve Not Available [address], 08204, 05/31/2016 16:34:04 05/31/20 16 05/31/2016 POC UA pH UA 6.0000 Not Available [address], 757[address], 05/31/2016 16:34:04 05/31/20 16 05/31/2016 POC UA SG UA >=1.03 00 Not Available [address], 20[address], 05/31/2016 16:34:04 05/31/20 16 05/31/2016 POC UA color UA Dark yellow Not Available [address], 733[address], 05/31/2016 16:34:04 05/31/20 16 05/31/2016 POC UA blo UA Negati ve Not Available [address], [address], 05/31/2016 16:34:04 05/31/20 16 05/31/2016 POC UA lisa UA Negati ve Not Available [address], [address], 05/31/2016 16:34:04 05/31/20 16 06/02/2016 cultu re, urine culture, urine, routine CULTU RE, URINE , ROUTI NE MICRO NUMBE R: [id number] TEST STATU S: FINAL SPECI MEN SOURC E: URINE SPECI MEN QUALI TY: ADEQU ATE RESUL T: No Growt h Not Available [facility] [address] [place] [address], [address], 06/02/2016 00:43:22 06/02/20 16 06/02/2016 BMP, serum or plasm a glucose 218 mg/dL 70-100 high Not Available [address], [address], 06/02/2016 11:19:48 06/02/20 16 06/02/2016 BMP, serum or plasm a BUN 8 mg/dL 7-18 Not Available [address], 00011, 06/02/2016 11:19:48 06/02/20 16 06/02/2016 BMP, serum or plasm a creatinine 0.9 mg/dL 0.8-1. 3 Not Available [address], 51703, 06/02/2016 11:19:48 06/02/20 16 06/02/2016 BMP, serum or plasm a B/C 8.9 ratio Not Available [address], [address]85, 06/02/2016 11:19:48 06/02/20 16 06/02/2016 BMP, serum or plasm a GFR -non 92.4 mL/mi n Recom marychuy d GFR by the Natio nal Kidne y Found ation >60 mL/mi n/1.7 3m2 - Mariam l <60 mL/mi n/1.7 3m2 - Chron ic Kidne y Disea se <15 mL/mi n/1.7 3m2 - Kidne y Failu re Not Available [address], [address], 06/02/2016 11:19:48 06/02/20 16 06/02/2016 BMP, serum or plasm a GFR - if 111.9 mL/mi n For Afric an Ameri can patie nts: Resul ts Multi plied by 1.21 Not Available [address], 11574, 06/02/2016 11:19:48 06/02/20 16 06/02/2016 BMP, serum or plasm a sodium 144 mmol/ L 136-14 5 Not Available [address], 82922, 06/02/2016 11:19:48 06/02/20 16 06/02/2016 BMP, serum or plasm a potassium 4.5 mmol/ L 3.5-5. 1 Not Available [address], 48468, 06/02/2016 11:19:48 06/02/20 16 06/02/2016 BMP, serum or plasm a chloride 105 mmol/ L 96-107 Not Available [address], 25024, 06/02/2016 11:19:48 06/02/20 16 06/02/2016 BMP, serum or plasm a anion gap 10.1 5.0-15 .0 Not Available [address], 31519, 06/02/2016 11:19:48 06/02/20 16 06/02/2016 BMP, serum or plasm a CO2 29 mmol/ L 21-32 Not Available [address], 41926, 06/02/2016 11:19:48 06/02/20 16 06/02/2016 BMP, serum or plasm a calcium 9.3 mg/dL 8.5-10 .3 Not Available [address], 19338, 06/02/2016 11:19:48 06/02/20 16 06/02/2016 lipid panel , serum cholesterol 184 mg/dL <200 mg/dl Jonathon able 200-2 39 mg/dl Borde rline High >240 mg/dl High Not Available [address], [address], 06/02/2016 11:19:49 06/02/20 16 06/02/2016 lipid panel , serum triglyceride s 116 mg/dL <150 mg/dL Mariam l 150-1 99 mg/dL Borde rline High 200-4 99 mg/dL High >500 mg/dL Very High Not Available [address], 70498, 06/02/2016 11:19:49 06/02/20 16 06/02/2016 lipid panel , serum direct HDL 45 mg/dL Not Available [address], 82568, 06/02/2016 11:19:49 06/02/20 16 06/02/2016 LDL, calcu [...] with 0-1 risk facto r is not mhain antoine. Not Available [address], [address], 06/02/2016 11:19:49 06/02/20 16 06/02/2016 HbA1c (hemo globi n A1c), blood hemoglobin A1C 7.7 % 4.8-6. 0 high Goal: <7% in Patie nts with Diabe brisa Not Available [address], [address]136, 06/02/2016 11:26:54 06/02/20 16 06/02/2016 HbA1c (hemo globi n A1c), blood estimated average glucose 174.3 mg/dL Not Available [address], 14351, 06/02/2016 11:26:54 06/02/20 16 06/02/2016 micro album in, urine microalbumin 19.7 mg/L 1.3-20 .0 Not Available [address], [address], 06/02/2016 12:41:00 06/02/20 16 06/02/2016 micro album in, urine creatinine urine 201.4 mg/dL 30.0-1 25.0 high Not Available [address], [address]6, 06/02/2016 12:41:00 06/02/20 16 06/02/2016 micro album in, urine microalb/cre at ratio 9.8 mg/g_ creat 0.0-29 .0 Not Available [address], [place], [address], 06/02/2016 12:41:00 03/08/20 17 03/08/2017 urina lysis , refle x cultu re color Yellow Not Available [address], [address], 03/08/2017 21:57:08 03/08/20 17 03/08/2017 urina lysis , refle x cultu re appearance Clear Not Available [address], [address]1264, 03/08/2017 21:57:08 03/08/20 17 03/08/2017 urina lysis , refle x cultu re specific gravity <=1.00 5 1.005- 1.030 Not Available [address], [address]687, 03/08/2017 21:57:08 03/08/20 17 03/08/2017 urina lysis , refle x cultu re pH 6.0 5.0-7. 0 Not Available [address], 61322, 03/08/2017 21:57:08 03/08/20 17 03/08/2017 urina lysis , refle x cultu re protein Negati ve negati ve Not Available [address], [address]93, 03/08/2017 21:57:08 03/08/20 17 03/08/2017 urina lysis , refle x cultu re glucose 3+ negati ve abnormal Not Available [address], 90500, 03/08/2017 21:57:08 03/08/20 17 03/08/2017 urina lysis , refle x cultu re ketones Negati ve negati ve Not Available [address], 52802, 03/08/2017 21:57:08 03/08/20 17 03/08/2017 urina lysis , refle x cultu re bilirubin Negati ve negati ve Not Available [address], 30600, 03/08/2017 21:57:08 03/08/20 17 03/08/2017 urina lysis , refle x cultu re blood Negati ve negati ve Not Available [address], 84861, 03/08/2017 21:57:08 03/08/20 17 03/08/2017 urina lysis , refle x cultu re nitrite Negati ve negati ve Not Available [address], 32362, 03/08/2017 21:57:08 03/08/20 17 03/08/2017 urina lysis , refle x cultu re leukocyte esterase Negati ve negati ve Not Available [address], 01924, 03/08/2017 21:57:08 03/08/20 17 03/08/2017 CBC w/ auto diff WBC 5.6 K/uL 3.4-11 .2 Not Available [address], 65513, 03/08/2017 21:57:30 03/08/20 17 03/08/2017 CBC w/ auto diff RBC 4.86 M/uL 4.50-5 .50 Not Available [address], 91416, 03/08/2017 21:57:30 03/08/20 17 03/08/2017 CBC w/ auto diff hemoglobin 14.0 g/dL 13.0-1 7.0 Not Available [address], 68124, 03/08/2017 21:57:30 03/08/20 17 03/08/2017 CBC w/ auto diff hematocrit 38.7 % 40.0-5 1.0 low Not Available [address], 17167, 03/08/2017 21:57:30 03/08/20 17 03/08/2017 CBC w/ auto diff MCV 79.6 fL 79.0-9 8.0 Not Available [address], 91531, 03/08/2017 21:57:30 03/08/20 17 03/08/2017 CBC w/ auto diff MCH 28.8 pg 27.0-3 4.8 Not Available [address], 90468, 03/08/2017 21:57:30 03/08/20 17 03/08/2017 CBC w/ auto diff MCHC 36.2 g/dL 31.5-3 6.0 high Not Available [address], 62408, 03/08/2017 21:57:30 03/08/20 17 03/08/2017 CBC w/ auto diff RDW 12.9 % 10.8-1 4.6 Not Available [address], 85221, 03/08/2017 21:57:30 03/08/20 17 03/08/2017 CBC w/ auto diff MPV 10.8 fL 9.4-12 .4 Not Available [address], 61990, 03/08/2017 21:57:30 03/08/2003/08/2017 CBC w/ auto diff platelet count 207 K/uL 130-40 0 Not Available [address], 43884, 03/08/2017 21:57:30 03/08/2003/08/2017 CBC w/ auto diff neutrophils 50.8 % 45.3-7 7.7 Not Available [address], 47888, 03/08/2017 21:57:30 03/08/20 17 03/08/2017 CBC w/ auto diff lymphocytes 32.9 % 12.3-3 9.7 Not Available [address], 84271, 03/08/2017 21:57:30 03/08/20 17 03/08/2017 CBC w/ auto diff monocytes 13.2 % 4.1-12 .8 high Not Available [address], 99041, 03/08/2017 21:57:30 03/08/20 17 03/08/2017 CBC w/ auto diff eosinophils 2.70 % 0.00-7 .20 Not Available [address], 52882, 03/08/2017 21:57:30 03/08/20 17 03/08/2017 CBC w/ auto diff basophils 0.20 % 0.00-2 .80 Not Available [address], 68540, 03/08/2017 21:57:30 03/08/20 17 03/08/2017 CBC w/ auto diff absolute neutrophil 2.9 K/uL 1.4-7. 7 Not Available [address], 18894, 03/08/2017 21:57:30 03/08/20 17 03/08/2017 CBC w/ auto diff absolute lymphocyte 1.8 K/uL 0.6-3. 2 Not Available [address], 38378, 03/08/2017 21:57:30 03/08/20 17 03/08/2017 CBC w/ auto diff absolute monocytes 0.7 K/uL 0.1-0. 6 high Not Available [address], 67259, 03/08/2017 21:57:30 03/08/20 17 03/08/2017 CBC w/ auto diff absolute eosinophil 0.15 K/uL 0.01-0 .50 Not Available [address], 82793, 03/08/2017 21:57:30 03/08/20 17 03/08/2017 CBC w/ auto diff absolute basophils 0.01 K/uL Not Available [address], 24430, 03/08/2017 21:57:30 03/08/20 17 03/08/2017 CBC w/ auto diff immature granulocyte 0.20 % 0.00-0 .50 Not Available [address], 93856, 03/08/2017 21:57:30 03/08/20 17 03/08/2017 CBC w/ auto diff absolute immature granulocyte 0.01 K/uL 0.00-0 .03 Not Available [address], 53115, 03/08/2017 21:57:30 03/08/2003/08/2017 CMP, serum or plasm a glucose 499 mg/dL 70-99 high Not Available [address], 40924, 03/08/2017 22:21:58 03/08/2003/08/2017 CMP, serum or plasm a BUN 6 mg/dL 6-19 Not Available [address], 73860, 03/08/2017 22:21:58 03/08/2003/08/2017 CMP, serum or plasm a creatinine 1.1 mg/dL 0.5-1. 5 Not Available [address], 78546, 03/08/2017 22:21:58 03/08/2003/08/2017 CMP, serum or plasm a GFR >60 mL/mi n >60 NKDEP (Althea onal Kidne y Disea se Educa tion Progr am) does not endor se the use of the MDRD (Pina ficat ion of Diet in Renal Disea se) equat ion for estim ating GFR in patie nts that are not betwe en the ages of 18 and 70. Not Available [address], 36942, 03/08/2017 22:21:58 03/08/20 17 03/08/2017 CMP, serum or plasm a sodium 136 mEq/L 133-14 6 Not Available [address], 58621, 03/08/2017 22:21:58 03/08/20 17 03/08/2017 CMP, serum or plasm a potassium 4.2 mEq/L 3.3-5. 2 Not Available [address], 70744, 03/08/2017 22:21:58 03/08/2003/08/2017 CMP, serum or plasm a chloride 98 mEq/L 96-108 Not Available [address], 86025, 03/08/2017 22:21:58 03/08/2003/08/2017 CMP, serum or plasm a CO2 27 mEq/L 21-35 Not Available [address], 75050, 03/08/2017 22:21:58 03/08/2003/08/2017 CMP, serum or plasm a calcium 9.4 mg/dL 8.4-10 .3 Not Available [address], 19500, 03/08/2017 22:21:58 03/08/2003/08/2017 CMP, serum or plasm a total bilirubin 0.4 mg/dL 0.0-1. 2 Not Available [address], 82635, 03/08/2017 22:21:58 03/08/2003/08/2017 CMP, serum or plasm a alkaline phosphatase 115 U/L 39-117 Not Available [address], [address], 03/08/2017 22:21:58 03/08/20 17 03/08/2017 CMP, serum or plasm a AST (SGOT) 11 U/L 0-37 Not Available [address], 44365, 03/08/2017 22:21:58 03/08/20 17 03/08/2017 CMP, serum or plasm a ALT (SGPT) 14 U/L 0-40 Not Available [address], 85443, 03/08/2017 22:21:58 03/08/20 17 03/08/2017 CMP, serum or plasm a total protein 7.4 g/dL 6.5-8. 0 Not Available [address], 34980, 03/08/2017 22:21:58 03/08/20 17 03/08/2017 CMP, serum or plasm a albumin 4.1 g/dL 3.9-4. 8 Not Available [address], 16281, 03/08/2017 22:21:58 03/08/20 17 03/08/2017 CMP, serum or plasm a globulin 3.3 gm/dL 1.0-4. 8 Not Available [address], 69018, 03/08/2017 22:21:58 03/08/20 17 03/08/2017 CMP, serum or plasm a A/G ratio 1.2 gm/dL 1.0-4. 8 Not Available [address], 91812, 03/08/2017 22:21:58 03/08/20 17 03/08/2017 CMP, serum or plasm a anion gap 15 mEq/L 10-20 Not Available [address], 66482, 03/08/2017 22:21:58 03/08/20 17 03/08/2017 C react alfreda prote in, QN, serum or plasm a C-reactive protein 0.24 mg/dL 0.00-0 .50 Not Available [address], 81607, 03/08/2017 22:21:58 03/08/20 17 03/08/2017 lipas e, serum or plasm a lipase 37 U/L 16-63 Not Available [address], 47220, 03/08/2017 22:21:59 10/16/19 18 10/16/2017 urina lysis , refle x cultu re color Yellow yellow Not Available [facility] [address] [place] [address], [address], 10/16/2017 15:03:07 10/16/19 18 10/16/2017 urina lysis , refle x cultu re clarity Clear Not Available [facility]) [address] [place] [address], [address], 10/16/2017 15:03:07 10/16/19 18 10/16/2017 urina lysis , refle x cultu re glucose 3+ negati ve abnormal Not Available [facility] ([facility]) [address] [place] [address], [address], 10/16/2017 15:03:07 10/16/19 18 10/16/2017 urina lysis , refle x cultu re bili Negati ve negati ve Not Available [facility] ([facility]) [address] [place] [address], [address], 10/16/2017 15:03:07 10/16/19 18 10/16/2017 urina lysis , refle x cultu re ketones Negati ve negati ve Not Available [facility] ([facility]) [address] [place] [address], [address], 10/16/2017 15:03:07 10/16/19 18 10/16/2017 urina lysis , refle x cultu re specific gravity 1.010 1.005- 1.030 Not Available [facility]) [address] [place], [address], 10/16/2017 15:03:07 10/16/19 18 10/16/2017 urina lysis , refle x cultu re blood Negati ve negati ve Not Available [facility] ([facility]) [address] [place], [address], 10/16/2017 15:03:07 10/16/19 18 10/16/2017 urina lysis , refle x cultu re pH 5.5 5.0-8. 0 Not Available [facility] ([facility]) [address] [place], [address], 10/16/2017 15:03:07 10/16/19 18 10/16/2017 urina lysis , refle x cultu re protein Negati ve negati ve Not Available [facility] ([facility]) [address] [place], [address], 10/16/2017 15:03:07 10/16/19 18 10/16/2017 urina lysis , refle x cultu re nitrite Negati ve negati ve Not Available [facility] ([facility]) [address] [place], [address], 10/16/2017 15:03:07 10/16/19 18 10/16/2017 urina lysis , refle x cultu re leukocyte esterase, ur Negati ve negati ve Not Available [facility] ([facility]) [address] [place], [address], 10/16/2017 15:03:07 10/16/19 18 10/16/2017 CBC w/ auto diff WBC 5.58 K/uL 3.40-1 1.20 Not Available [facility]) [address] [place], [address], 10/16/2017 16:30:11 10/16/19 18 10/16/2017 CBC w/ auto diff RBC 4.75 M/uL 4.50-5 .50 Not Available [facility] ([facility]) [address] [place], [address], 10/16/2017 16:30:11 10/16/19 18 10/16/2017 CBC w/ auto diff HGB 13.7 g/dL 13.0-1 7.0 Not Available [facility] (Outpatient) [address] [place], [address], 10/16/2017 16:30:11 10/16/19 18 10/16/2017 CBC w/ auto diff HCT 39.0 % 40.0-5 1.0 low Not Available [facility] (Outpatient) [address] [place] [address], [id number], 10/16/2017 16:30:11 10/16/19 18 10/16/2017 CBC w/ auto diff plt 218 K/uL 130-40 0 Not Available [facility] (Outpatient) [address] [place] [address], [id number], 10/16/2017 16:30:11 10/16/19 18 10/16/2017 CBC w/ auto diff MCV 82.1 fL 79.0-9 8.0 Not Available [facility] (Outpatient) [address] [place] [address], [id number], 10/16/2017 16:30:11 10/16/19 18 10/16/2017 CBC w/ auto diff MCH 28.8 pg 27.0-3 4.8 Not Available [facility] (Outpatient) [address] [place] [address], [id number], 10/16/2017 16:30:11 10/16/19 18 10/16/2017 CBC w/ auto diff MCHC 35.1 g/dL 31.5-3 6.0 Not Available [facility] [facility] [address] [place], [address], 10/16/2017 16:30:11 10/16/19 18 10/16/2017 CBC w/ auto diff RDW 12.8 % 10.8-1 4.6 Not Available [facility] (Outpatient) [address] [place] [address], [address], 10/16/2017 16:30:11 10/16/19 18 10/16/2017 CBC w/ auto diff MPV 10.9 fL 9.4-12 .4 Not Available [facility] (Outpatient) [address] [place] [address], [address], 10/16/2017 16:30:11 10/16/19 18 10/16/2017 CBC w/ auto diff NRBC 0.00 /100_ WBCs Not Available [facility] (Outpatient) [address] [place] [address], [address], 10/16/2017 16:30:11 10/16/19 18 10/16/2017 CBC w/ auto diff absolute NRBC 0.00 K/uL Not Available [facility] (Outpatient) [address] [place] [address], [address], 10/16/2017 16:30:11 10/16/19 18 10/16/2017 CBC w/ auto diff diff method Auto Not Available [facility] (Outpatient) [address] [place], [address], 10/16/2017 16:30:11 10/16/19 18 10/16/2017 CBC w/ auto diff neuts 54.2 % 45.30- 77.70 Not Available [facility] (Outpatient) [address] [place] [address], [address], 10/16/2017 16:30:11 10/16/19 18 10/16/2017 CBC w/ auto diff lymphs 32.1 % 12.30- 39.70 Not Available [facility] (Outpatient) [address] [place], [address], 10/16/2017 16:30:11 10/16/19 18 10/16/2017 CBC w/ auto diff monos 10.4 % 4.10-1 2.80 Not Available [facility] (Outpatient) [address] [place], [address], 10/16/2017 16:30:11 10/16/19 18 10/16/2017 CBC w/ auto diff eos 2.7 % 0-7.2 Not Available [facility] (Outpatient) [address] [place] [address], [address], 10/16/2017 16:30:11 10/16/19 18 10/16/2017 CBC w/ auto diff basos 0.4 % 0-2.80 Not Available [facility] (Outpatient) [address] [place], [address], 10/16/2017 16:30:11 10/16/19 18 10/16/2017 CBC w/ auto diff granulocytes , immature (%) 0.2 % 0.0-0. 9 Not Available [facility] (Outpatient) [address] [place], [address], 10/16/2017 16:30:11 10/16/19 18 10/16/2017 CBC w/ auto diff absolute neuts 3.03 K/uL 1.40-7 .70 Not Available [facility] (Outpatient) [address] [place], [address], 10/16/2017 16:30:11 10/16/19 18 10/16/2017 CBC w/ auto diff absolute lymphs 1.79 K/uL 0.60-3 .20 Not Available [facility] (Outpatient) [address] [place], [address], 10/16/2017 16:30:11 10/16/19 18 10/16/2017 CBC w/ auto diff absolute monos 0.58 K/uL 0.11-0 .59 Not Available [facility] (Outpatient) [address] [place], [address], 10/16/2017 16:30:11 10/16/19 18 10/16/2017 CBC w/ auto diff absolute eos 0.15 K/uL 0.01-0 .50 Not Available [facility] (Outpatient) [address] [place], [address], 10/16/2017 16:30:11 10/16/19 18 10/16/2017 CBC w/ auto diff absolute basos 0.02 K/uL 0.00-0 .08 Not Available [facility] (Outpatient) [address] [place], [address], 10/16/2017 16:30:11 10/16/19 18 10/16/2017 CBC w/ auto diff granulocytes , immature 0.01 K/uL 0.00-0 .05 Not Available [facility] (Outpatient) [address] [place], [address], 10/16/2017 16:30:11 10/16/19 18 10/16/2017 BMP, blood sodium 142 mmol/ L 133-14 6 Not Available [facility] (Outpatient) [address] [place], [address], 10/16/2017 16:53:22 10/16/19 18 10/16/2017 BMP, blood chloride 105 mmol/ L 96-108 Not Available [facility] (Outpatient) [address] [place], [address], 10/16/2017 16:53:22 10/16/19 18 10/16/2017 BMP, blood potassium 4.7 mmol/ L 3.3-5. 1 Not Available [facility] (Outpatient) [address] [place], [address], 10/16/2017 16:53:22 10/16/19 18 10/16/2017 BMP, blood CO2 29 mmol/ L 21-35 Not Available [facility] (Outpatient) [address] [place] [address], [address], 10/16/2017 16:53:22 10/16/19 18 10/16/2017 BMP, blood BUN 6 mg/dL 6-19 Not Available [facility] (Outpatient) [address] [place] [address], [address], 10/16/2017 16:53:22 10/16/19 18 10/16/2017 BMP, blood creatinine 0.90 mg/dL 0.5-1. 5 Not Available [facility] (Outpatient) [address] [place] [address], [address], 10/16/2017 16:53:22 10/16/19 18 10/16/2017 BMP, blood glucose 229 mg/dL 70-99 high Not Available [facility] (Outpatient) [address] [place] [address], [address], 10/16/2017 16:53:22 10/16/19 18 10/16/2017 BMP, blood calcium 9.6 mg/dL 8.4-10 .3 Not Available [facility] (Outpatient) [address] [place] [address], [address], 10/16/2017 16:53:22 10/16/19 18 10/16/2017 BMP, blood eGFR >60 mL/mi n/1.7 3m2 >60 Abnor mal if <60. If patie nt is Afric an-Am kwabena n, multi ply the resul t by 1.21. Not Available [facility] (Outpatient) [address] [place] [address], [address], 10/16/2017 16:53:22 10/16/19 18 10/16/2017 BMP, blood anion gap 13 mmol/ L 10-20 Not Available [facility] (Outpatient) [address] [place] [address], [address], 10/16/2017 16:53:22 10/16/19 18 10/16/2017 lipas e, serum or plasm a lipase 25 U/L 16-63 Not Available [facility] (Outpatient) [address] [place], [address], 10/16/2017 16:53:24 10/16/19 18 10/16/2017 lfts (hepa tic panel ) alkaline phosphatase 98 U/L 39-117 Not Available [facility] (Outpatient) [address] [place], [address], 10/16/2017 16:53:26 10/16/19 18 10/16/2017 lfts (hepa tic panel ) total bilirubin 0.5 mg/dL 0-1.2 Not Available [facility] (Outpatient) [address] [place] [address], [address], 10/16/2017 16:53:26 10/16/19 18 10/16/2017 lfts (hepa tic panel ) direct bilirubin <0.2 mg/dL 0-0.3 Not Available [facility] (Outpatient) [address] [place], [address], 10/16/2017 16:53:26 10/16/19 18 10/16/2017 lfts (hepa tic panel ) bilirubin (indirect) NOT CALCUL ATED mg/dL 0-1.5 Not Available [facility] (Outpatient) [address] [place] [address], [address], 10/16/2017 16:53:26 10/16/19 18 10/16/2017 lfts (hepa tic panel ) AST 14 U/L 0-37 Not Available [facility] (Outpatient) [address] [place] [address], [address], 10/16/2017 16:53:26 10/16/19 18 10/16/2017 lfts (hepa tic panel ) ALT 16 U/L 0-40 Not Available [facility] (Outpatient) [address] [place] [address], [address], 10/16/2017 16:53:26 10/16/19 18 10/16/2017 lfts (hepa tic panel ) total protein 7.4 g/dL 6.5-8. 0 Not Available [facility] (Outpatient) [address] [place], [address], 10/16/2017 16:53:26 10/16/19 18 10/16/2017 lfts (hepa tic panel ) albumin 4.3 g/dL 3.9-4. 8 Not Available [facility] (Outpatient) [address] [place], [address], 10/16/2017 16:53:26 10/16/19 18 10/16/2017 lfts (hepa tic panel ) globulin 3.1 g/dL 1-4.8 Not Available [facility] (Outpatient) [address] [place], [address], 10/16/2017 16:53:26 10/16/19 18 10/16/2017 lfts (hepa tic panel ) A/G ratio 1.39 ratio 1.00-4 .80 Not Available [facility] (Outpatient) [address] [place], [address], 10/16/2017 16:53:26 04/12/20 16 04/12/2016 XR, chest , 2 view No observ ation record ed. [email or web address] [facility] [address] [place], [address], 04/18/2016 07:51:26 06/16/20 16 04/12/2016 chest 2 [...] JOHN PEACE, ANGELA Transc ribed by: Yuli shun, PS360 Result s 2015 06:33 AM Electr onical ly Signed By: DORIAN MON MD 2015 06:35 AM mmastroberti [facility] [address] [facility], [place], [address], 06/17/2016 10:45:13 03/09/20 17 03/09/2017 CT, abdom [...] . Initia l report render ed by [facility]. POS - CDHRAD BOARDW S7 Electr onical ly Signed by: MO CERON on 017 10:12 AM Techno logist : NINI MONICA KEVIN Transc ribed by: Yuli allen, PS360 Result s 2016 10:04 AM Electr onical ly Signed By: MO CERON MD 2016 10:12 AM [facility] [address] [place] [address], [address], 03/13/2017 13:11:35 10/17/19 18 10/16/2017 xr abdom [...] Final result P.S. LQP X 7 MONTHS ROBLESSindhu ISAAC [facility] [address] [place] [address], [address], 10/17/2017 08:11:32 Result Notes None recorded. Problems Name Problem SNOMED Code Status Onset Date Resolution Date Notes Provider Name and Address Organization Details Recorded Time Essential hypertensio n 89322282 Completed 01/20/2016 Robles Isaac MD [address] [place], [place] [address] [place], [address], [facility] 6 23:10:47 Diabetes mellitus 89640221 Completed 01/20/2016 Robles Isaac MD [address] [place], [place] [address], [address], [facility] 6 23:10:50 Skin lesion 49106040 Completed 01/20/2016 Robles hendrickson MD [address] [place], [place] [address], [address], [facility] 6 23:10:54 Benign essential hypertensio n 3777701 Active Robles Isaac MD [address] [place], [place] [address], [address], [facility] 6 08:53:56 Mixed hyperlipide muna 882759872 Active Robles Isaac MD [address] [place], [place] [address], [address], [facility] 6 08:53:56 Uncontrolle d type 2 diabetes mellitus 887047158 Active Robles Isaac MD [address] [place], [place] [address], [address], [facility] 6 08:53:56 Problem Notes None recorded. Procedures Surgical History Date Name Laterality Status Provider Name and Address Organization Details Recorded Time 6 POC Urinalysis Testing completed Yocasta Brownlee [facility] 05/31/2016 16:24:56 4 Excision completed Robles Isaac MD [address] [place] [address], [address], [facility] 10/15/2013 11:15:56 Imaging Results Imaging Date Name Status LastModified by Organiz ation Details LastModified Time 04/12/2016 XR, chest, 2 view completed [facility] [address] [facility], [place], [address], 04/18/2016 07:51:26 04/12/2016 chest 2 V completed mmastroberti [facility] [address] [place], [address], 06/17/2016 10:45:13 03/09/2017 CT, abdomen + pelvis, w/o contrast completed [facility] [address] [place], [address], 03/13/2017 13:11:35 10/16/2017 xr abdomen series supine with decubitis/ere ct and single view chest completed [facility] [address] [place], [address], 10/17/2017 08:11:32 Procedure Notes None recorded. Medical [...] Available Not Available No t Available [employer] [place] [employer] kit active Not Available Not Available Not Available Vitals Date Recorded Body height Body weight Body mass index (BMI) Systolic blood pressure Diastolic blood pressure Provider Name and Address Organization Details Last Updated DateTime 05/03/2016 158.115 cm 09269.45 g 27.4 kg/m2 144 mm[Hg] 74 mm[Hg] Alessandra Orellana MA [facility] 6 08:30:54 Date Recorded Body height Heart rate Oxygen saturation Oxygen saturation in Arterial blood by Pulse oximetry Systolic blood pressure Diastolic blood pressure Provider Name and Address Organization Details Last Updated DateTime 6 158.115 cm 85 /min 98 % 98 % 142 mm[Hg] 88 mm[Hg] [facility] 6 16:06:44 Date Recorded Body height Systolic blood pressure Diastolic blood pressure Provider Name and Address Organization Details Last Updated DateTime 06/06/2016 158.115 cm 142 mm[Hg] 72 mm[Hg] [facility] 06/06/2016 09:58:35 Date Recorded Body height Body weight Body mass index (BMI) Systolic blood pressure Diastolic blood pressure Provider Name and Address Organization Details Last Updated DateTime 06/22/2016 158.115 cm 67513.26 g 27.3 kg/m2 150 mm[Hg] 80 mm[Hg] [facility] 6 11:20:12 Social History Question Answer Notes LastModified by Organizat ion Details LastModified Time Tobacco Smoking Status Never Smoker Alessandra Orellana MA [facility] 10/02/2013 10:35:52 What Is Your Level Of [...] 10/02/2013 What Is Your Occupation? Works At [employer] fkim Information not available 10/02/2013 How Many Days [...] Recorded Time Tdap 4 completed Not Available [facility] 09/28/2019 02:16:08 Influenza, split virus, quadrivalent, PF 4 completed Not Available [facility] 09/28/2019 02:18:56 pneumococcal polysaccharide PPV23 4 completed Not Available [facility] 09/28/2019 02:14:36 Influenza, split virus, trivalent, PF 4 completed Not Available [facility] 09/28/2019 02:19:21 Influenza, split virus, quadrivalent, PF 6 completed Not Available [facility] 09/28/2019 02:33:00 Past Encounters Encounter ID Performer Location Encounter Start Date Encounter Closed Date Diagnosis/Indication Diagnosis SNOMED-CT Code Diagnosis ICD10 Code Diagnosis Note [id number] [facility], OFFICE [address] [place] [address] 10/02/2013 10:13:34 10/02/2013 11:26:17 Essential hypertension 83266114 Elevated BP. Previously not engaged in care. Low salt diet recommende d. Start Chlorthali done. Will add SHUN-I once renal function establishe d. Follow up in 1 week. Advised to get fasting labwork tomorrow. Diabetes mellitus 62793564 Patient with new-onset diabetes. Symptoms of polydipsia [...] week. Screening for malignant neoplasm of colon 607507537 Skin lesion 25426482 Inv olving the left posterior upper arm. Likely epidermoid cyst. Schedule for an excision. No clinical evidence of cellulitis or acute abscess. Influenza vaccine needed [id number] Administra tion of diphtheria, pertussis, and tetanus vaccine [id number] TINO Mendoza, [facility], OFFICE [address] [place] [address] 10/09/2013 09:59:46 10/09/2013 13:05:30 Essential hypertension 53974390 Previously not engaged in care. Tolerating Chlorthali done. BP improved. Low salt diet recommende d. Will add Lisinopril 2.5mg po daily. Repeat BMP at his next visit. Diabetes mellitus 81784030 Patient with new-onset diabetes. Symptoms of polydipsia [...] start SHUN-I. Follow up in 1 week. [id number] TINO Mendoza, [facility], OFF[address] [place] [address] 10/15/2013 10:06:38 10/15/2013 13:08:04 Diabetes mellitus 69088041 Patient with new-onset diabetes. Symptoms of polydipsia [...] in 1 week. Epidermoid cyst of skin 790504770 Non-infect ed, left upper arm cyst removed [...] week for wound check and suture removal. [id number] Robles Isaac MD , [facility], [address] [place] [address] 10/23/2013 14:35:31 10/23/2013 15:12:07 Chest pain 28293104 His symptoms of left-sided chest pain and [...] s for UC/ER use discussed. Skin lesion 82752634 Inv olving the left posterior upper arm. Sutures removed. Hypertroph ic scar and contact dermatitis noted. Purulent discharge expressed with suture removal. Wound care discussed. Gauze applied. Follow up early next week for a follow up. Consider General Surgery referral if not healed completely . [id number] Alessandra Orellana MA , [facility], [address] [place] [address] 10/30/2013 08:21:52 10/30/2013 08:54:16 Essential hypertension 24442581 Previously was not engaged in care. Tolerating Chlorthali done and Lisinopril . BP markedly improved. Low salt diet recommende d. Check BMP at his next visit. Diabetes mellitus 56378256 Patient with new-onset diabetes. Symptoms of polydipsia [...] ratio. SHUN-I started previously . Skin lesion 10348602 Inv olving the left posterior upper arm. Sutures removed last week. Hypertroph ic scar and contact dermatitis noted at the time. Now healing well. No fluctuance . Consider General Surgery referral if not healed completely . Chest pain 26549544 His symptoms of left-sided chest , SOB [...] symptoms. Indication s for UC/ER use discussed. [id number] TINO Stanley, [facility], [address] [place] [address] 11/27/2013 09:03:19 11/27/2013 09:47:48 Diabetes mellitus 73842460 Patient with recent diagnosis of diabetes. Symptoms [...] elevated MA/Cr ratio. SHUN-I started. Essential hypertension 04892445 Previously was not engaged in care. Tolerating Chlorthali done. Erroneousl y stopped Lisinopril . Will resume. No intoleranc e issues. BP markedly improved. Low salt diet recommende d. Epidermoid cyst of skin 238029688 Non-infect ed, left upper arm cyst removed at his previous visit due to persistent pain. Patient with residual scarring. No current evidence of infection. [id number] Xi June , [facility], [address] [place] [address] 02/19/2014 11:04:44 02/19/2014 12:04:40 Adult health examination 246542870 See Risk Assessment and Lifestyle Change Counseling section above. Tdap vaccine UTD. PNA vaccine administer ed today. Home/vehic le/sexual safety reviewed. Not sexually active. Colonoscop y scheduled 03/2014. Counseling 157943583 Benign ess ential hypertension 7766071 Previously was not engaged in care. Tolerating Chlorthali done and Lisinopril . BP markedly improved. Low salt diet recommende d. Mixed hyperlipidemia 656777228 Fair FLP with LDL 92. Would like better control given his underlying diabetes, but also struggles with polypharma cy. Low fat/choles terol diet and exercise recommende d. Diarrhea 26426145 Patien t with chronic diarrhea intermitte ntly. Recently evaluated by Dr. Burrows (GI). Scheduled to have a colonoscop y in 03/2014. Recent IgA mildly positive (other celiac markers negative). No BRBPR/boris na. No abdominal pain. Uncontroll ed type 2 diabetes mellitus 630578013 States home BS 140-200. Improved Hgb A1c [...] hydration discussed. Administra tion of pneumococcal vaccine [id number] Robles Isaac MD , [facility], [address] [place] [address] 04/09/2014 07:59:46 04/09/2014 08:49:22 Uncontrolled type 2 diabetes mellitus 021507114 States home BS 120-150. Overall improved Hgb [...] discussed. Ample oral hydration discussed. Essential hypertension 28381409 Previously was not engaged in care. Tolerating Chlorthali done. Erroneousl y stopped Lisinopril . Will resume. No intoleranc e issues. BP markedly improved. Will titrate up Lisinopril as needed. Low salt diet lurdese kermit [id number] , [facility], [address] [place] [address] 07/07/2014 07:47:01 07/07/2014 08:23:26 Mixed hyperlipidemia 855707235 Patient with LDL of 150 (06/2014). However, his 10-year risk of GA is 7%. New AHA/ACC guideline discussed. Advised on low fat/choles terol diet and exercise. Influenza vaccine needed [id number] 106 Uncontroll ed type 2 diabetes mellitus 833234040 States home BS 100-160. Overall improved Hgb [...] discussed. Ample oral hydration discussed. Essential hypertension 74013960 Previously was not engaged in care. Tolerating Chlorthali done and Lisinopril . No intoleranc e issues. BP markedly improved. Low salt diet recommende d. [id number] MD GISSELL Huizar, [facility], [address] [place] [address] 11/25/2015 08:22:18 11/25/2015 09:20:28 Benign essential hypertension 3061011 I10 Blood pressure elevated. Lost insurance in 2013. Has been off his medication s. No CP/SOB/CUEVAS . Recommende d to continue to work on diet, exercise, and lowering salt intake. Will resume Lisinopril (but will hold off on Chlorthali done). Check BMP. Mixed hyperlipidemia 267 500367 E78.2 Patient with previous LDL of 150 (06/2014). However, his 10-year risk of GA is 7%. New AHA/ACC guideline discussed. Advised on low fat/choles terol diet and exercise. Uncontrol ed type 2 diabetes mellitus 429127284 E11.65 Out of care for over 1 [...] oral hydration discussed. Unexplaine d weight loss 793352134 R63.4 Patient with 15 lbs weight loss since his last visit. Denies bleeding. Out of medication for over 1 year. Will continue to monitor. [id number] Robles Isaac MD , [facility], [address] [place] [address] 12/14/2015 10:17:02 12/15/2015 08:21:49 Benign essential hypertension 1826629 I10 Blood pressure improved. Lost insurance in 2013. Was off his medication s. No CP/SOB/CUEVAS . Recommende d to continue to work on diet, exercise, and lowering salt intake. Recently started Lisinopril (but will hold off on Chlorthali done). Mixed hyperlipidemia 267 228790 E78.2 Patient with previous LDL of 150 (06/2014). However, his 10-year risk of GA is 7%. New AHA/ACC guideline discussed. Advised on low fat/choles terol diet and exercise. Uncontroll ed type 2 diabetes mellitus 107723006 E11.65 Out of care for over 1 [...] medication s discussed. Ample oral hydration discussed. [id number] Robles Isaac MD , [facility], [address] [place] [address] 01/11/2016 08:21:26 01/11/2016 08:52:49 Benign essential hypertension 4176739 I10 Blood pressure elevated, but previously well [...] if persistent ly elevated. Mixed hyperlipidemia 267 030334 E78.2 Patient with previous LDL of 150 (06/2014). However, his 10-year risk of GA is 7%. New AHA/ACC guideline discussed. Advised on low fat/choles terol diet and exercise. Uncontroll ed type 2 diabetes mellitus 776172538 E11.65 Out of care for over 1 [...] hydration discussed. Right uppe r quadrant pain 280284165 R10.11 Patient with 1-week duration of RUQ abdominal pain. No clinical evidence of acute abdomen. Will check US to further evaluate. Advised to avoid high fat diet. Indication s for UC/ER use reviewed. [id number] Robles Isaac MD , [facility], [address] [place] [address] 01/20/2016 08:45:30 01/20/2016 09:28:43 Cholelithiasis without obstruction 10642141 K80.20 Patient with 1-week duration of RUQ abdominal pain. No clinical evidence of acute abdomen. Abdominal US revealed gallstones . Will refer to General Surgery for further evaluation . Advised to avoid high fat diet. Indication s for UC/ER use reviewed. Benign ess ential hypertension 1136860 I10 Blood pressure improved overall. Lost insurance in 2013. Was off his medication s. No CP/SOB/CUEVAS . Recommende d to continue to work on diet, exercise, and lowering salt intake. Recently started Lisinopril (but will hold off on Chlorthali done). Mixed hyperlipidemia 267 635393 E78.2 Patient with previous LDL of 150 (06/2014). However, his calculated 10-year risk of GA is 7%. New AHA/ACC guideline discussed. Advised on low fat/choles terol diet and exercise. Uncontroll ed type 2 diabetes mellitus 079876057 E11.65 Out of care for over 1 [...] medication s discussed. Ample oral hydration discussed. [id number] Robles Isaac MD , [facility], [address] [place] [address] 05/03/2016 08:21:49 05/03/2016 08:48:10 Neuropathy 567760184 G62.9 Patient reports bilateral inner thigh numbness and tingling. No weakness. No urine incontinen ce symptoms. Trial of Gabapentin discussed. Uncontrol ed type 2 diabetes mellitus 838103522 E11.65 Recently increased the Glipizide dose. Previously [...] oral hydration discussed. Benign ess ential hypertension 0156229 I10 Blood pressure improved overall. Lost insurance in 2013. Was off his medication s. No CP/SOB/CUEVAS . Recommende d to continue to work on diet, exercise, and lowering salt intake. Recently started Lisinopril (but will hold off on Chlorthali done). [id number] PRABHU Mauricio-CALEB , [facility], [address] [place] [address] 05/31/2016 15:55:20 05/31/2016 16:50:42 Active or passive immunization 494440592 Z23 Diarrhea 90760259 R19.7 possibly secondary to surgery, poor historian, symptoms worsening in last 2 weeks. labs as ordered below. advised follow up within 4-7 days. Dysuria 08862726 R30.0 UA labs consistent with poorly controlled DM. culture pending. follow up with PCP, if symptoms worsen be seen. Uncontroll ed type 2 diabetes mellitus [id number] E11.65 reviewed importance of blood sugar control. pt to follow up with pcp. [id number] , [facility], OFFICE [address] [place] [address] 06/06/2016 09:54:11 06/06/2016 10:24:25 Diarrhea [id number] R19.7 possible s/e of metformin, change ir to ER, follow up in 2 weeks. Uncontroll ed type 2 diabetes mellitus [id number] E11.65 possible metformin contributi ng to diarrhea, change to ER. monitor diarrhea, follow up in 2 weeks for disease management re diarrhea and blood sugar. Pain of sh oulder region [id number] M25.512 subscapula r pain consistent with muscle strain. continue with supportive measures. [id number] Kyra Mauro, BODY MASKER-BC , [facility], OFFICE [address] [place] [address] 06/22/2016 11:10:57 06/24/2016 09:39:47 Shoulder joint pain [id number] M25.519 right sub scapular muscle spasm, pt notes weakness in right shoulder suggestive of rotator cuff involvemen t, but no focal weakness on exam , muscle tension noted. refer for PT, apply heat, follow up for failure to resolve. Diabetes mellitus [id number] E11.9 fasting sugar elevated, referral to DNE consider victoza or insulin. [id number] Julieta Barrett RN, BSN, [facility] DM Education , [facility] [address] [place] [address] 07/04/2016 07:51:58 07/08/2016 09:50:09 Uncontrolled type 2 diabetes mellitus [id number] E11.65 Met with Greg today for Type 2 diabetes, kindly referred by Kyra Mauro, STEPHANIE. Greg is accompanie d by his daughter, who helps to translate for him. He is Martiniquais speaking. His daughter reports she lives with [...] Delong Member ID Guarantor Name 05/03/2016 1 [facility] - DIRECT CONNECTORCARE TYPE II (HMO) [facility] [id number] 001 [facility] 05/31/2016 1 [facility] - DIRECT CONNECTORCARE TYPE II (HMO) [facility] [id number] 001 [facility] 06/06/2016 1 [facility] - DIRECT CONNECTORCARE TYPE II (HMO) [facility] [id number] 001 [facility] 06/22/2016 1 [facility] - DIRECT CONNECTORCARE TYPE II (HMO) [facility] [id number] 001 [facility] 07/04/2016 1 [facility] - DIRECT CONNECTORCARE TYPE II (HMO) [facility] [id number] 001 [facility] Notes Date Note Type Note Provider Name [...] undergone laparoscopic cholecystectomy in 02/2016. Went to [facility] ER 3 weeks ago due to CP. His CXR, CBC, Troponin and CMP all within normal, except for elevated BS. No recurring symptoms since. Robles Isaac MD [address] [place] [address], [phone], [facility] 05/03/2016 23:18:53 05/31/2016 text/html pt presents with [...] procedure. diarrhea worse. no fever. Kyra Mauro, [address], [phone], [facility] 06/05/2016 16:26:27 06/06/2016 text/html back pain, start [...] 2013).notes diarrhea may be related to metformin. OLYA Mauricio[address], [address], [facility] 06/06/2016 10:22:13 06/22/2016 text/html pt has pain in b ack to front around shoulder pain is interfering with ability to sleep.pain lasts all day.feels as if the shoulder falls asleep and drops. Kyra Mauro [address], [address], [facility] 06/22/2016 11:34:50 07/04/2016 text/html Diabetes Self Management History & IntakeReported bypatient.Patient HistoryPatient chief complaint today:Needs help interpreting blood sugars; has a family history of diabetes; Completed Diabetes Self-Assessment Form received, reviewed and sent for chart upload. Present at Visit:showcase maker (language)Martiniquais; patient's child (Daughter helped interpret appt.) Recent [...] Pt. Intake Form) Julieta Barrett RN, BSN, [address], [phone], [facility] 07/04/2016 16:03:29
--- OUTSIDE RECORDS SUMMARY | 2025-01-07 13:15 | XMS_ITS | Encounter Summary ---
Author Organization [employer] Address [address] [facility] 7t [place] [address] Care Team Providers Care Registered Radiologic Technologist Name Role Phone Carolina Siddiqi MD Primary Care Provide r Encounter Details Date Type Department Care Team ([facility] st Contact Info) Description 07/19/2024 Orders Only [facility] [address] [place] [address] Carolina Siddiqi MD [address] [place] [address] Social History Tobacco Use Types Packs/Day Years [...] 135/72(2024 9:20 AM EDT) No Ivana Puente, PharmD Take your medication every day Lifestyle No RobsoneKanchanona, PharmD Hemoglobin A1c < 7 Result Component 6.2( 9:25 AM EDT) No RobsoneIvana, PharmD documented as of this encounter Visit Diagnoses Not on filedocumented in this encounter Additional Health Concerns Assessment Noted Time PHQ-9 Depression Total Score: 10 024 10:07 AM EDT documented as of this encounter Care Teams Registered Radiologic Technologist Relationship Specialty Start Date End Date Carolina Siddiqi MD [address] [place] [phone] PCP - General Internal Medicine 07/11/23 Jolie Thompson Community Health Worker Case Management 02/14/24 documented as of this encounter
== END 2025-01-07 11:44 | disposition home or self-care (01) ==
LOC: HO.HCS 11:16
PROVIDERS: PCP Internal Medicine; Visit Provider Internal Medicine Cardiovascular Disease
DX: I25.10 Atherosclerotic heart disease of native coronary artery without angina pectoris (principal); I25.5 Ischemic cardiomyopathy; Z01.810 Encounter for preprocedural cardiovascular examination
CPT/HCPCS: 93010; 99214; G2211

== ENCOUNTER → 2025-01-07 11:15 | Outpatient (BNVA) | payer MEDICARE, SELFPAY | PROVIDERS: PCP Internal Medicine; Visit Provider Internal Medicine Cardiovascular Disease | DX: Z01.810 Encounter for preprocedural cardiovascular examination (principal); I25.10 Atherosclerotic heart disease of native coronary artery without angina pectoris; I25.5 Ischemic cardiomyopathy | CPT/HCPCS: 93005; 99212 ==

== ENCOUNTER → 2025-01-13 08:04 | Outpatient (REF) | payer MEDICARE, SELFPAY ==
--- NOTE | 2025-01-13 08:07 | CA_ITS ---
Acquisition Time: 2025-01-13 08:20:13 Total Exercise Time: 00:02:00 Test Indications: CARDIOMYOPATHY,Pre-Op Evaluation Medications: SEE H&P Protocol: LEXISCAN Max HR: 99 BPM 63% of Pred: 155 BPM Max BP: 128/64 mmHG Max Work Load: 1.0 METS Pharmacological stress test with Lexiscan while pt marches in the chair, with reports of 7/10 left sided chest heaviness and dizziness, without any arrythmias, with normotensive response to injection. Nondiagnostic EKG for ischemia. In recovery, pt treated with IVP Aminophylline 75 mg to reverse Lexiscan after whcih pt started to feel back to baseline. Nuclear images pending. Test reviewed with Dr. Wilkes. Referred By: Tan Mcwilliams Electronically Signed By: Floyd Lyle
--- OUTSIDE RECORDS SUMMARY | 2025-01-13 08:10 | XMS_ITS | Clinical Summary ---
Author Organization [employer] Address 75 [facility] 7t [place] [address] Care Team Providers Care Patient Registration Supervisor Name Role Phone Carolina Siddiqi MD [...] hyperglycemia, without long-term current use of insulin ([facility]) Use to test blood sugar 2 times daily 100 each 12 024 2024 Active Blood Glucose Monitoring Suppl (FreeStyle [place] Lite) w/Device kitIndications:Ty pe 2 diabetes mellitus with hyperglycemia, without long-term current use of insulin ([facility]) Use to test blood sugar 2 times daily 1 kit Active sacubitril-valsar stoddard (Entresto) 97-103 MG tabletIndications :Primary hypertension,Material Damage Adjuster nilam systolic congestive heart failure ([facility]) Take 1 tablet by mouth 2 times daily. 60 tablet 12 024 2024 Active TRUEplus Lancets 33G miscIndications:T ype 2 diabetes mellitus with hyperglycemia, without long-term current use of insulin ([facility]) USE DIRECTED TO TEST BLOOD SUGAR EVERY DAY 100 each 11 Active glucose blood (FREESTYLE LITE) test stripIndications: Type 2 diabetes mellitus with hyperglycemia, without long-term current use of insulin ([facility]) USE DIRECTED TO TEST BLOOD SUGAR [...] hyperglycemia, without long-term current use of insulin ([facility]) USE DIRECTED TO TEST BLOOD SUGAR TWICE DAILY 100 each 3 Active fluticasone (Flonase) 50 MCG/ACT nasal sprayIndications: Rhinitis, unspecified type Administer 1-2 sprays into each nostril Once per day. Shake gently. Before first use, prime pump. After use, clean tip and replace cap. 16 g 025 2025 Active Lancets (OneTouch Delica Plus Ejmxar14J) miscIndications:T ype 2 diabetes mellitus with hyperglycemia, without long-term current use of insulin ([facility]) USE TO TEST BLOOD SUGAR TWICE DAILY DIRECTED 100 each 5 025 Active ciclopirox (Penlac) 8 % solutionIndicatio ns:Onycholysis Apply topically at bedtime. 6 mL 1 Active Trulicity 0.75 MG/0.5ML solution auto-injector Inject 0.75 mg as directed 1 (one) time per week. 2 mL 11 Active Brilinta 90 MG tablet TAKE 1 TABLET BY MOUTH TWICE DAILY IN THE MORNING AND IN THE EVENING 60 tablet Active Brilinta 90 MG tablet Take 1 tablet by mouth 2 times daily. 2024 Discontinued acetaminophen (Tylenol Extra Strength) 500 MG tabletIndications :Primary osteoarthritis of right knee Take 2 tablets (1,000 mg) by mouth every 8 (eight) hours if needed for mild pain for up to 20 days. 40 tablet 2 2024 Active Problems Problem Noted Date Diagnosed [...] artery disease of n ative artery of [place] heart with stable angina pectoris 01/26/2024 Overview [...] in the context of medical issues, early long-term, adjusting to living alone and language barrier. [...] Type Department Care Team Description 12/27/2024 Refill [facility] [address] [place] [address] Carolina Siddiqi MD 12/11/2024 Refill [facility] [address] [place], [place] [phone] Carolina Siddiqi MD 12/10/2024 9:15 AM EDT Office Visit [facility] [address] [place] [phone] Carolina Siddiqi MD Primary osteoarthritis of right knee (Primary Dx); Type 2 diabetes mellitus with hyperglycemia, without long-term current use of insulin ([facility]); Onycholysis; Chronic pain of right knee 12/10/2024 Travel 12/09/2024 Telephone [facility] [address] [place] [phone] Carolina Siddiqi MD CHART PREP 11/29/[address] [address] Carolina Siddiqi MD Prior Authorization ([employer] [facility] Request: [place]ylor) 11/29/2024 Patient Outreach [facility] [address] [place] [phone] Carolina Siddiqi MD Pre-visit Planning ([facility] screening completed on 10/07/2024) 10/25/2024 Refill [facility] [address] [place] [address] Carolina Siddiqi MD Type 2 diabetes mellitus with hyperglycemia, without long-term current use of insulin ([facility]) 10/24/2024 Orders Only [facility] External Provider, [facility] from Last 3 Months Immunizations Name Administration [...] history exists Depression Screening 02/25/2025 02/26/2024, 02/26/20 Diabetes: Hemoglobin A1C 06/11/2025 025, 07/01/2024, 02/26/2024, [...] Pressure 135/72(2024 9:20 AM EDT) No Ivana Puente PharmD Take your medication every day Lifestyle No Ivana Puente PharmD Hemoglobin A1c < 7 Result Component 6.2( 9:25 AM EDT) No Ivana Puente PharmD Procedures Procedure Name Priority Date/Time Associated Diagnosis Comments POCT GLYCATED HEMOGLOBIN, TOTAL Routine 12/10/2024 9:25 AM EDT Type 2 diabetes mellitus with hyperglycemia, without long-term current use of insulin ([facility]) POCT GLUCOSE Routine 12/10/2024 9:23 AM EDT Type 2 diabetes mellitus with hyperglycemia, without long-term current use of insulin ([facility]) US ABDOMEN LIMITED Routine 10/25/2024 6: 12 [...] EST Narrative 10/25/2024 6:14 AM EST ? [facility] ?[address] ?[place] [address] ? Ultrasound Report ? Signed ? Patient: Land,Greg ?MR#: [id number] ?? [id number] ? : 1960 ?Acct:[id number] ? Age/Sex: 64 / M ?ADM Date: 10/24/24 ? Loc: HO.US ? Attending Dr: Glenda NICHOLSON ? Ordering Physician: Glenda Rosa ?? Date of Service: 10/24/24 ?? Procedure(s): US abdomen limited ?? Accession Number(s): [id number] ? cc: aCrolina Siddiqi MD; Glenda Rosa ? CLINICAL HISTORY: [...] ? DD/ 1 ? TD/TT: 10/25/24611 ? Saw Sharpener: ? Procedure Note Marlin, Image - 10/25/2024 [place] [address] Ultrasound Report Signed Patient: Rosita Land#: [id number] : 9Acct:[id number] Age/Sex: 64 / MADM Date: 10/24/24 Loc: HO.US Attending Dr: Glenda Rosa SHRIMP PEELING MACHINE OPERATOR-BC Ordering Physician: Glenda Rosa Date of Service: 10/24/24 Procedure(s): US abdomen limited Accession Number(s): [id number] cc: Carolina Siddiqi MD; Glenda Rosa SHRIMP PEELING MACHINE OPERATOR-BC CLINICAL HISTORY: K42.9 - Umbilical hernia without [...] in OV> 10/25/24612 DD/ 1 TD/TT: 10/25/24611 Saw Sharpener: us [facility] External Provider IMG US PROCEDURES Final Result * Lipid Panel, Standard (09/13/2024 9:46 AM EST) Triglycerides 73 <150 mg/dL [facility] Comment:Desirable Triglyceri de: less than 150 mg/dLBorderline High Triglyceride 150-199 mg/dLHigh Triglyceride: 200-499 mg/dLVery High Triglyceride: greater than or equal to 5OO mg/dL Cholesterol 113 <200 mg/dL [facility] Comment:Desirable Cholestero l: less than 200 mg/dLBorderline High Cholesterol: 200-239 mg/dLHigh Cholesterol: greater than 239 mg/dL LDL Cholesterol Calculated 47 <100 mg/dL [facility] Comment:Desirable LDL: less than 100 mg/dLNear Optimal/Above Optimal LDL: 110- 129 mg/dLBorderline High LDL: 130-159 mg/dLHigh LDL: 160-189 mg/dLVery High LDL: greater than or equal to 190 mg/dL HDL Cholesterol 52 >40 mg/dL [facility] Comment:Desirable HDL: great er than 40 mg/dL Note: This HDL assay may give artificially low results in patients with liver disease. 09/13/2024 9:46 AM EST 09/13/2024 9:46 AM EST us Generic External Data Provider LAB BLOOD ORDERAB LES Final Result [facility] [address] [place] [phone] * Cologuard?? colon cancer screening (09/27/2023 8:35 AM EST) Pathologist [facility] Cologuard Result Negative Negative 10/06/19 5:26 PM EST its learning (CLIA #:[id number]) Comment: NEGATIVE TEST RESULT. A negative Cologuard [...] screened with both Cologuard and colonoscopy. (Anamaria Doss. et al, N Engl J Med 2014;370(14):1286- 1297) The normal value (reference range) for this assay is negative. COLOGUARD RE-SCREENING RECOMMENDATION: Periodic colorectal cancer screening is an important part of preventive healthcare for asymptomatic individuals at average risk for colorectal cancer. ??Following a negative Cologuard result, the [place] Cancer Society and U.S. Multi-Society Task Force screening guidelines recommend a Cologuard re-screening interval of 3 years. References: [place] [employer] Society Guideline for Colorectal Cancer Screening: https://www.cancer.org/cancer/gsqxe-euuoio-pxxvsp/bouabbayf-cranbtrdw-wizmxec/ac s-rec ommendations.html.; Kvng FINNEY, Rose CR, Alaina LangK, Colorectal Cancer Screening: Recommendations for Physicians and Patients from the U.S. Multi-Society Task Force on Colorectal Cancer Screening , Am J Gastroenterology 2017; 112:1348-9099. TEST DESCRIPTION: Composite algorithmic analysis of stool [...] (Anamaria Morgan al, N Engl J Med 2014;370(14):6803-2271.) Cologuard may produce a false negative or false positive result (no colorectal cancer or precancerous polyp present at colonoscopy follow up). A negative Cologuard test result does not guarantee the absence of CRC or advanced adenoma (pre-cancer). The current Cologuard screening interval is every 3 years. ([place] Cancer Society and U.S. Multi-Society Task Force). Cologuard performance data in a 10,000 patient pivotal study using colonoscopy as the reference method can be accessed at the following location: www.[employer]/results. Additional description of the Cologuard test process, warnings and precautions can be found at www.[employer].com. Stool specimen (specimen) 09/27/2023 8:35 AM EST 09/28/2023 3:50 PM EST Carolina Mahajan MD LAB MOLECULAR DIAGNOS TICS ORDERABLES Final Result its learning (CLIA #:[id number]) [place] [address], [place] [phone] from Last 3 Months or Most Recently Relevant to Health Maintenance Insurance [facility] DUAL COMPLETE Care Teams Patient Registration Supervisor Relationship Specialty Start Date End Date Carolina Siddiqi MD [address] [place] [phone] PCP - General Internal Medicine 07/11/23 Jolie Thompson Community Health Worker Case Management 02/14/24
--- OUTSIDE RECORDS SUMMARY | 2025-01-13 08:10 | XMS_ITS | Encounter Summary ---
Author Organization [employer] Address [address] [facility] 7t [place] [address] Care Team Providers Care Beer Still Runner Compounder Name Role Phone Carolina Siddiqi MD Primary Care Provide r Encounter Details Date Type Department Care Team ([facility] st Contact Info) Description 07/19/2024 Orders Only [facility] [address] [place] [address] Carolina Siddiqi MD [address] [place] [address] Social History Tobacco Use Types Packs/Day Years [...] documented as of this encounter Care Teams Beer Still Runner Compounder Relationship Specialty Start Date End Date Carolina Siddiqi MD [address] [place] [phone] PCP - General Internal Medicine 07/11/23 Jolie Thompson Community Health Worker Case Management 02/14/24 documented as of this encounter
--- OUTSIDE RECORDS SUMMARY | 2025-01-13 08:10 | XMS_ITS | Encounter Summary ---
Author Organization [employer] Address [address] [facility] [address]t [place] [address] Care Team Providers Care Technology Training Associate Name Role Phone Carolina Siddiqi MD Primary Care Provide r Encounter Details Date Type Department Care Team ([facility] st Contact Info) Description 02/23/[address] [facility] [address] [place] [address] Yeimi Saenz MD [address] [place] [address] Social History Tobacco Use Types Packs/Day Years [...] documented as of this encounter Care Teams Technology Training Associate Relationship Specialty Start Date End Date Carolina Siddiqi MD [address] [place] [address] PCP - General Internal Medicine 07/11/23 Jolie Thompson Community Health Worker Case Management 02/14/24 documented as of this encounter
--- OUTSIDE RECORDS SUMMARY | 2025-01-13 08:10 | XMS_ITS | Data Portability ---
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 Plan of Treatment Reminders Order Date Submit Date Provider Last Modified By Organization Details Last Modified Time Details Appointments None recorded. Lab hepatic function panel, serum - add on. 2015 016 [facility], [address] [place] [address], [id number], 6 04:08:03 culture, urine 2015 016 [facility], [address] [place] [address], [id number], 6 04:07:56 Referral diabetes management referral - brazilian speaker with elevated blood sugar, likely needs injectables , please assist with next steps for blood glucose management. 2015 016 Not available 6 04:08:57 physical therapist referral - pt with right scapular pain and some right shoulder pain with movements. please assist with rehabilitat ion 2015 016 [facility], [address] [place] [address], [id number], 6 04:08:57 Procedures None recorded. Surgeries None recorded. Imaging None recorded. Medication Orders metformin ER 1,000 mg tablet,exte nded release 24hr (osmotic) 2015 016 [place] [address] ([facility]), [address] [place], [id number], 6 04:07:36 glipizide 10 mg tablet 2015 016 [place] [address] [facility] [address] [place], [id number], 6 04:06:44 metformin 1,000 mg tablet 2015 016 [place] [address] [facility] [address] [place], [id number], 6 04:05:56 lisinopril 2.5 mg tablet 2015 016 [place] [address] ([facility] [address] [place], [id number], 6 04:06:25 gabapentin 300 mg capsule 2015 016 [place] [address] ([facility]27), [address] [place], [id number], 6 04:06:27 Patient TargetsNo targets recorded. Patient Instructions Encounter Date Encounter Id Patient Instructions Last Modified By Organization Details Last Modified Time 05/03/2016 [id number] Spent 25 minutes of [id number] time, of which greater than 50% was in counseling. After a discussion of treatment options, which included consideration of best practices and patient preferences, the above treatment plan and objectives were adopted. [email or web address] Not available 05/03/2016 23:18:31 07/04/2016 [id number] -Start testing blood sugar more often, at [...] Kyra Mauro, Family Medicine, Encounter Date: 06/22/2016 brazilian speaker with elevate d blood sugar, likely needs injectables, please assist with next steps for blood glucose management. Referring Physician: Kyra Mauro, Family Medicine, Encounter Date: 06/22/2016 Results Created Date Observation Date Name Description Value Unit Range Abnormal Flag Note LastModifiedBy Organization Detail LastModifiedTime 04/12/20 16 04/12/2016 CBC w/ auto diff WBC 5.8 K/uL 3.4-11 .2 Not Available [address], [address], 04/12/2016 01:57:38 04/12/20 16 04/12/2016 CBC w/ auto diff RBC 4.71 M/uL 4.50-5 .50 Not Available [address], [address], 04/12/2016 01:57:38 04/12/20 16 04/12/2016 CBC w/ auto diff hemoglobin 13.8 g/dL 13.0-1 7.0 Not Available [address], [address], 04/12/2016 01:57:38 04/12/20 16 04/12/2016 CBC w/ auto diff hematocrit 38.1 % 40.0-5 1.0 low Not Available [address], [address], 04/12/2016 01:57:38 04/12/20 16 04/12/2016 CBC w/ auto diff MCV 80.9 fL 79.0-9 8.0 Not Available [address], [address], 04/12/2016 01:57:38 04/12/20 16 04/12/2016 CBC w/ auto diff MCH 29.3 pg 27.0-3 4.8 Not Available [address], [address], 04/12/2016 01:57:38 04/12/20 16 04/12/2016 CBC w/ auto diff MCHC 36.2 g/dL 31.5-3 6.0 high Not Available [address], [address], 04/12/2016 01:57:38 04/12/20 16 04/12/2016 CBC w/ auto diff RDW 12.9 % 10.8-1 4.6 Not Available [address], [address], 04/12/2016 01:57:38 04/12/20 16 04/12/2016 CBC w/ auto diff MPV 10.4 fL 9.4-12 .4 Not Available [address], [address], 04/12/2016 01:57:38 04/12/20 16 04/12/2016 CBC w/ auto diff platelet count 204 K/uL 130-40 0 Not Available [address], [address], 04/12/2016 01:57:38 04/12/20 16 04/12/2016 CBC w/ auto diff neutrophils 49.9 % 45.3-7 7.7 Not Available [address], [address], 04/12/2016 01:57:38 04/12/20 16 04/12/2016 CBC w/ auto diff lymphocytes 35.0 % 12.3-3 9.7 Not Available [address], [address], 04/12/2016 01:57:38 04/12/20 16 04/12/2016 CBC w/ auto diff monocytes 10.8 % 4.1-12 .8 Not Available [address], [address], 04/12/2016 01:57:38 04/12/20 16 04/12/2016 CBC w/ auto diff eosinophils 3.80 % 0.00-7 .20 Not Available [address], [address], 04/12/2016 01:57:38 04/12/20 16 04/12/2016 CBC w/ auto diff basophils 0.30 % 0.00-2 .80 Not Available [address], [address], 04/12/2016 01:57:38 04/12/20 16 04/12/2016 CBC w/ auto diff absolute neutrophil 2.9 K/uL 1.4-7. 7 Not Available [address], [address], 04/12/2016 01:57:38 04/12/2004/12/2016 CBC w/ auto diff absolute lymphocyte 2.0 K/uL 0.6-3. 2 Not Available [address], [address], 04/12/2016 01:57:38 04/12/2004/12/2016 CBC w/ auto diff absolute monocytes 0.6 K/uL 0.1-0. 6 Not Available [address], [address], 04/12/2016 01:57:38 04/12/2004/12/2016 CBC w/ auto diff absolute eosinophil 0.22 K/uL 0.01-0 .50 Not Available [address], [address], 04/12/2016 01:57:38 04/12/20 16 04/12/2016 CBC w/ auto diff absolute basophils 0.02 K/uL Not Available [address], [address], 04/12/2016 01:57:38 04/12/20 16 04/12/2016 CBC w/ auto diff immature granulocyte 0.20 % 0.00-0 .50 Not Available [address], [address], 04/12/2016 01:57:38 04/12/20 16 04/12/2016 CBC w/ auto diff absolute immature granulocyte 0.01 K/uL 0.00-0 .03 Not Available [address], [address], 04/12/2016 01:57:38 04/12/20 16 04/12/2016 tropo lenore T, serum troponin T <0.010 NG/mL 0.000- 0.030 Not Available [address], [address], 04/12/2016 02:21:34 04/12/20 16 04/12/2016 CMP, serum or plasm a glucose 289 mg/dL 70-99 high Not Available [address], [address], 04/12/2016 02:21:35 04/12/2004/12/2016 CMP, serum or plasm a BUN 10 mg/dL 6-19 Not Available [address], [address], 04/12/2016 02:21:35 04/12/20 16 04/12/2016 CMP, serum or plasm a creatinine 0.9 mg/dL 0.5-1. 5 Not Available [address], [address], 04/12/2016 02:21:35 04/12/20 16 04/12/2016 CMP, serum [...] ages of 17 and 69. Not Available [address], [address], 04/12/2016 02:21:35 04/12/2004/12/2016 CMP, serum or plasm a sodium 137 mEq/L 133-14 6 Not Available [address], [address], 04/12/2016 02:21:35 04/12/2004/12/2016 CMP, serum or plasm a potassium 4.1 mEq/L 3.3-5. 1 Not Available [address], [address], 04/12/2016 02:21:35 04/12/2004/12/2016 CMP, serum or plasm a chloride 99 mEq/L 96-108 Not Available [address], [address], 04/12/2016 02:21:35 04/12/2004/12/2016 CMP, serum or plasm a CO2 26 mEq/L 21-35 Not Available [address], [address], 04/12/2016 02:21:35 04/12/2004/12/2016 CMP, serum or plasm a calcium 9.4 mg/dL 8.4-10 .3 Not Available [address], [address], 04/12/2016 02:21:35 04/12/2004/12/2016 CMP, serum or plasm a total bilirubin 0.6 mg/dL 0.0-1. 2 Not Available [address], [address], 04/12/2016 02:21:35 04/12/20 16 04/12/2016 CMP, serum or plasm a alkaline phosphatase 87 U/L 39-117 Not Available [address], [address], 04/12/2016 02:21:35 04/12/20 16 04/12/2016 CMP, serum or plasm a AST (SGOT) 13 U/L 0-37 Not Available [address], [address], 04/12/2016 02:21:35 04/12/20 16 04/12/2016 CMP, serum or plasm a ALT (SGPT) 19 U/L 0-40 Not Available [address], [address], 04/12/2016 02:21:35 04/12/2004/12/2016 CMP, serum or plasm a total protein 6.9 g/dL 6.5-8. 0 Not Available [address], [address], 04/12/2016 02:21:35 04/12/2004/12/2016 CMP, serum or plasm a albumin 4.0 g/dL 3.9-4. 8 Not Available [address], [address], 04/12/2016 02:21:35 04/12/2004/12/2016 CMP, serum or plasm a globulin 2.9 gm/dL 1.0-4. 8 Not Available [address], [address], 04/12/2016 02:21:35 04/12/2004/12/2016 CMP, serum or plasm a A/G ratio 1.4 gm/dL 1.0-4. 8 Not Available [address], [address], 04/12/2016 02:21:35 04/12/2004/12/2016 CMP, serum or plasm a anion gap 16 mEq/L 10-20 Not Available [facility] [address] [facility], [place], [address], 04/12/2016 02:21:35 05/31/20 16 05/31/2016 POC UA glu UA 1+ abnormal Not Available [address], [address], 05/31/2016 16:34:04 05/31/20 16 05/31/2016 POC UA clarity UA Slight ly Cloudy Not Available [address], [address], 05/31/2016 16:34:04 05/31/20 16 05/31/2016 POC UA uro UA 1.0000 Not Available [address], [address], 05/31/2016 16:34:04 05/31/20 16 05/31/2016 POC UA ket UA Negati ve Not Available [address], [address], 05/31/2016 16:34:04 05/31/20 16 05/31/2016 POC UA pro UA Trace abnormal Not Available [address], [address], 05/31/2016 16:34:04 05/31/20 16 05/31/2016 POC UA nit UA Negati ve Not Available [address], [address], 05/31/2016 16:34:04 05/31/20 16 05/31/2016 POC UA neida UA Negati ve Not Available [address], [address], 05/31/2016 16:34:04 05/31/20 16 05/31/2016 POC UA pH UA 6.0000 Not Available [address], [address], 05/31/2016 16:34:04 05/31/20 16 05/31/2016 POC UA SG UA >=1.03 00 Not Available [address], [address], 05/31/2016 16:34:04 05/31/20 16 05/31/2016 POC UA color UA Dark yellow Not Available [address], [address], 05/31/2016 16:34:04 05/31/20 16 05/31/2016 POC UA blo UA Negati ve Not Available [address], [address], 05/31/2016 16:34:04 05/31/20 16 05/31/2016 POC UA lisa UA Negati ve Not Available [address], [address], 05/31/2016 16:34:04 05/31/20 16 06/02/2016 cultu re, urine culture, urine, routine CULTU RE, URINE , ROUTI NE MICRO NUMBE R: [id number] TEST STATU S: FINAL SPECI MEN SOURC E: URINE SPECI MEN QUALI TY: ADEQU ATE RESUL T: No Growt h Not Available [facility] [address] [place] [address], [address], 06/02/2016 00:43:22 06/02/20 16 06/02/2016 BMP, serum or plasm a glucose 218 mg/dL 70-100 high Not Available [address], [address], 06/02/2016 11:19:48 06/02/20 16 06/02/2016 BMP, serum or plasm a BUN 8 mg/dL 7-18 Not Available [address], [address], 06/02/2016 11:19:48 06/02/20 16 06/02/2016 BMP, serum or plasm a creatinine 0.9 mg/dL 0.8-1. 3 Not Available [address], [address], 06/02/2016 11:19:48 06/02/20 16 06/02/2016 BMP, serum or plasm a B/C 8.9 ratio Not Available [address], [address], 06/02/2016 11:19:48 06/02/20 16 06/02/2016 BMP, serum or plasm a GFR -non 92.4 mL/mi n Recom marychuy d GFR by the Natio nal Kidne y Found ation >60 mL/mi n/1.7 3m2 - Mariam l <60 mL/mi n/1.7 3m2 - Chron ic Kidne y Disea se <15 mL/mi n/1.7 3m2 - Kidne y Failu re Not Available [address], [address], 06/02/2016 11:19:48 06/02/20 16 06/02/2016 BMP, serum or plasm a GFR - if 111.9 mL/mi n For Afric an Ameri can patie nts: Resul ts Multi plied by 1.21 Not Available [address], [address], 06/02/2016 11:19:48 06/02/20 16 06/02/2016 BMP, serum or plasm a sodium 144 mmol/ L 136-14 5 Not Available [address], [address], 06/02/2016 11:19:48 06/02/20 16 06/02/2016 BMP, serum or plasm a potassium 4.5 mmol/ L 3.5-5. 1 Not Available [address], [address], 06/02/2016 11:19:48 06/02/20 16 06/02/2016 BMP, serum or plasm a chloride 105 mmol/ L 96-107 Not Available [address], [address], 06/02/2016 11:19:48 06/02/20 16 06/02/2016 BMP, serum or plasm a anion gap 10.1 5.0-15 .0 Not Available [address], [address], 06/02/2016 11:19:48 06/02/20 16 06/02/2016 BMP, serum or plasm a CO2 29 mmol/ L 21-32 Not Available [address], [address], 06/02/2016 11:19:48 06/02/20 16 06/02/2016 BMP, serum or plasm a calcium 9.3 mg/dL 8.5-10 .3 Not Available [address], [address], 06/02/2016 11:19:48 06/02/20 16 06/02/2016 lipid panel , serum cholesterol 184 mg/dL <200 mg/dl Jonathon able 200-2 39 mg/dl Borde rline High >240 mg/dl High Not Available [address], [address], 06/02/2016 11:19:49 06/02/20 16 06/02/2016 lipid panel , serum triglyceride s 116 mg/dL <150 mg/dL Mariam l 150-1 99 mg/dL Borde rline High 200-4 99 mg/dL High >500 mg/dL Very High Not Available [address], [address], 06/02/2016 11:19:49 06/02/20 16 06/02/2016 lipid panel , serum direct HDL 45 mg/dL Not Available [address], [address], 06/02/2016 11:19:49 06/02/20 16 06/02/2016 LDL, calcu [...] with 0-1 risk facto r is not mahin antoine. Not Available [address], [address], 06/02/2016 11:19:49 06/02/20 16 06/02/2016 HbA1c (hemo globi n A1c), blood hemoglobin A1C 7.7 % 4.8-6. 0 high Goal: <7% in Patie nts with Diabe brisa Not Available [address], [address], 06/02/2016 11:26:54 06/02/20 16 06/02/2016 HbA1c (hemo globi n A1c), blood estimated average glucose 174.3 mg/dL Not Available [address], [address], 06/02/2016 11:26:54 06/02/20 16 06/02/2016 micro album in, urine microalbumin 19.7 mg/L 1.3-20 .0 Not Available [address], [address], 06/02/2016 12:41:00 06/02/20 16 06/02/2016 micro album in, urine creatinine urine 201.4 mg/dL 30.0-1 25.0 high Not Available [address], [address], 06/02/2016 12:41:00 06/02/20 16 06/02/2016 micro album in, urine microalb/cre at ratio 9.8 mg/g_ creat 0.0-29 .0 Not Available [address], [place], [address], 06/02/2016 12:41:00 03/08/20 17 03/08/2017 urina lysis , refle x cultu re color Yellow Not Available [address], [address], 03/08/2017 21:57:08 03/08/20 17 03/08/2017 urina lysis , refle x cultu re appearance Clear Not Available [address], [address], 03/08/2017 21:57:08 03/08/20 17 03/08/2017 urina lysis , refle x cultu re specific gravity <=1.00 5 1.005- 1.030 Not Available [address], [address], 03/08/2017 21:57:08 03/08/20 17 03/08/2017 urina lysis , refle x cultu re pH 6.0 5.0-7. 0 Not Available [address], [address], 03/08/2017 21:57:08 03/08/20 17 03/08/2017 urina lysis , refle x cultu re protein Negati ve negati ve Not Available [address], [address], 03/08/2017 21:57:08 03/08/20 17 03/08/2017 urina lysis , refle x cultu re glucose 3+ negati ve abnormal Not Available [address], [address], 03/08/2017 21:57:08 03/08/20 17 03/08/2017 urina lysis , refle x cultu re ketones Negati ve negati ve Not Available [address], [address], 03/08/2017 21:57:08 03/08/20 17 03/08/2017 urina lysis , refle x cultu re bilirubin Negati ve negati ve Not Available [address], [address], 03/08/2017 21:57:08 03/08/20 17 03/08/2017 urina lysis , refle x cultu re blood Negati ve negati ve Not Available [address], [address]806, 03/08/2017 21:57:08 03/08/20 17 03/08/2017 urina lysis , refle x cultu re nitrite Negati ve negati ve Not Available [address], [address], 03/08/2017 21:57:08 03/08/20 17 03/08/2017 urina lysis , refle x cultu re leukocyte esterase Negati ve negati ve Not Available [address], [address], 03/08/2017 21:57:08 03/08/20 17 03/08/2017 CBC w/ auto diff WBC 5.6 K/uL 3.4-11 .2 Not Available [address], [address], 03/08/2017 21:57:30 03/08/20 17 03/08/2017 CBC w/ auto diff RBC 4.86 M/uL 4.50-5 .50 Not Available [address], [address], 03/08/2017 21:57:30 03/08/20 17 03/08/2017 CBC w/ auto diff hemoglobin 14.0 g/dL 13.0-1 7.0 Not Available [address], [address], 03/08/2017 21:57:30 03/08/20 17 03/08/2017 CBC w/ auto diff hematocrit 38.7 % 40.0-5 1.0 low Not Available [address], [address], 03/08/2017 21:57:30 03/08/20 17 03/08/2017 CBC w/ auto diff MCV 79.6 fL 79.0-9 8.0 Not Available [address], [address], 03/08/2017 21:57:30 03/08/20 17 03/08/2017 CBC w/ auto diff MCH 28.8 pg 27.0-3 4.8 Not Available [address], [address], 03/08/2017 21:57:30 03/08/20 17 03/08/2017 CBC w/ auto diff MCHC 36.2 g/dL 31.5-3 6.0 high Not Available [address], [address], 03/08/2017 21:57:30 03/08/20 17 03/08/2017 CBC w/ auto diff RDW 12.9 % 10.8-1 4.6 Not Available [address], [address], 03/08/2017 21:57:30 03/08/20 17 03/08/2017 CBC w/ auto diff MPV 10.8 fL 9.4-12 .4 Not Available [address], [address], 03/08/2017 21:57:30 03/08/2003/08/2017 CBC w/ auto diff platelet count 207 K/uL 130-40 0 Not Available [address], [address], 03/08/2017 21:57:30 03/08/2003/08/2017 CBC w/ auto diff neutrophils 50.8 % 45.3-7 7.7 Not Available [address], [address], 03/08/2017 21:57:30 03/08/20 17 03/08/2017 CBC w/ auto diff lymphocytes 32.9 % 12.3-3 9.7 Not Available [address], [address], 03/08/2017 21:57:30 03/08/20 17 03/08/2017 CBC w/ auto diff monocytes 13.2 % 4.1-12 .8 high Not Available [address], [address]30, 03/08/2017 21:57:30 03/08/20 17 03/08/2017 CBC w/ auto diff eosinophils 2.70 % 0.00-7 .20 Not Available [address], [address], 03/08/2017 21:57:30 03/08/20 17 03/08/2017 CBC w/ auto diff basophils 0.20 % 0.00-2 .80 Not Available [address], 18781, 03/08/2017 21:57:30 03/08/20 17 03/08/2017 CBC w/ auto diff absolute neutrophil 2.9 K/uL 1.4-7. 7 Not Available [address], [address], 03/08/2017 21:57:30 03/08/20 17 03/08/2017 CBC w/ auto diff absolute lymphocyte 1.8 K/uL 0.6-3. 2 Not Available [address], [address]80[address], 03/08/2017 21:57:30 03/08/20 17 03/08/2017 CBC w/ auto diff absolute monocytes 0.7 K/uL 0.1-0. 6 high Not Available [address], [address], 03/08/2017 21:57:30 03/08/20 17 03/08/2017 CBC w/ auto diff absolute eosinophil 0.15 K/uL 0.01-0 .50 Not Available [address], [address], 03/08/2017 21:57:30 03/08/20 17 03/08/2017 CBC w/ auto diff absolute basophils 0.01 K/uL Not Available [address], [address]68, 03/08/2017 21:57:30 03/08/20 17 03/08/2017 CBC w/ auto diff immature granulocyte 0.20 % 0.00-0 .50 Not Available [address], [address]184, 03/08/2017 21:57:30 03/08/20 17 03/08/2017 CBC w/ auto diff absolute immature granulocyte 0.01 K/uL 0.00-0 .03 Not Available [address], [address], 03/08/2017 21:57:30 03/08/2003/08/2017 CMP, serum or plasm a glucose 499 mg/dL 70-99 high Not Available [address], [address], 03/08/2017 22:21:58 03/08/2003/08/2017 CMP, serum or plasm a BUN 6 mg/dL 6-19 Not Available [address], [address]23, 03/08/2017 22:21:58 03/08/2003/08/2017 CMP, serum or plasm a creatinine 1.1 mg/dL 0.5-1. 5 Not Available [address], [address]41, 03/08/2017 22:21:58 03/08/2003/08/2017 CMP, serum or plasm [...] ages of 17 and 69. Not Available [address], [address], 03/08/2017 22:21:58 03/08/20 17 03/08/2017 CMP, serum or plasm a sodium 136 mEq/L 133-14 6 Not Available [address], 11[address], 03/08/2017 22:21:58 03/08/20 17 03/08/2017 CMP, serum or plasm a potassium 4.2 mEq/L 3.3-5. 2 Not Available [address], [address]41, 03/08/2017 22:21:58 03/08/2003/08/2017 CMP, serum or plasm a chloride 98 mEq/L 96-108 Not Available [address], [address]91, 03/08/2017 22:21:58 03/08/2003/08/2017 CMP, serum or plasm a CO2 27 mEq/L 21-35 Not Available [address], 26451, 03/08/2017 22:21:58 03/08/2003/08/2017 CMP, serum or plasm a calcium 9.4 mg/dL 8.4-10 .3 Not Available [address], [address]137, 03/08/2017 22:21:58 03/08/2003/08/2017 CMP, serum or plasm a total bilirubin 0.4 mg/dL 0.0-1. 2 Not Available [address], [address], 03/08/2017 22:21:58 03/08/2003/08/2017 CMP, serum or plasm a alkaline phosphatase 115 U/L 39-117 Not Available [address], [address], 03/08/2017 22:21:58 03/08/20 17 03/08/2017 CMP, serum or plasm a AST (SGOT) 11 U/L 0-37 Not Available [address], [address], 03/08/2017 22:21:58 03/08/20 17 03/08/2017 CMP, serum or plasm a ALT (SGPT) 14 U/L 0-40 Not Available [address], [address]3546, 03/08/2017 22:21:58 03/08/20 17 03/08/2017 CMP, serum or plasm a total protein 7.4 g/dL 6.5-8. 0 Not Available [address], [address]28, 03/08/2017 22:21:58 03/08/20 17 03/08/2017 CMP, serum or plasm a albumin 4.1 g/dL 3.9-4. 8 Not Available [address], 40043, 03/08/2017 22:21:58 03/08/20 17 03/08/2017 CMP, serum or plasm a globulin 3.3 gm/dL 1.0-4. 8 Not Available [address], [address], 03/08/2017 22:21:58 03/08/20 17 03/08/2017 CMP, serum or plasm a A/G ratio 1.2 gm/dL 1.0-4. 8 Not Available [address], [address]992, 03/08/2017 22:21:58 03/08/20 17 03/08/2017 CMP, serum or plasm a anion gap 15 mEq/L 10-20 Not Available [address], [address], 03/08/2017 22:21:58 03/08/20 17 03/08/2017 C react alfreda prote in, QN, serum or plasm a C-reactive protein 0.24 mg/dL 0.00-0 .50 Not Available [address], [address], 03/08/2017 22:21:58 03/08/20 17 03/08/2017 lipas e, serum or plasm a lipase 37 U/L 16-63 Not Available [address], [address]20, 03/08/2017 22:21:59 10/16/19 18 10/16/2017 urina lysis , refle x cultu re color Yellow yellow Not Available [facility] ([facility] [address] [place] [address], [address], 10/16/2017 15:03:07 10/16/19 18 10/16/2017 urina lysis , refle x cultu re clarity Clear Not Available [facility] ([facility]) [address] [place] [address], [address], 10/16/2017 15:03:07 10/16/19 18 10/16/2017 urina lysis , refle x cultu re glucose 3+ negati ve abnormal Not Available [facility] ([facility]) [address] [place] [address], [address], 10/16/2017 15:03:07 10/16/19 18 10/16/2017 urina lysis , refle x cultu re bili Negati ve negati ve Not Available [facility] ([facility]) [address] [place] [address], [address], 10/16/2017 15:03:07 10/16/19 18 10/16/2017 urina lysis , refle x cultu re ketones Negati ve negati ve Not Available [facility] ([facility]) [address] [place] [address], [address], 10/16/2017 15:03:07 10/16/19 18 10/16/2017 urina lysis , refle x cultu re specific gravity 1.010 1.005- 1.030 Not Available [facility] ([facility]) [address] [place], [address], 10/16/2017 15:03:07 10/16/19 18 10/16/2017 urina lysis , refle x cultu re blood Negati ve negati ve Not Available [facility] ([facility]) [address] [place], [address], 10/16/2017 15:03:07 10/16/19 18 10/16/2017 urina lysis , refle x cultu re pH 5.5 5.0-8. 0 Not Available [facility] ([facility]) [address] [place], [address], 10/16/2017 15:03:07 10/16/19 18 10/16/2017 urina lysis , refle x cultu re protein Negati ve negati ve Not Available [facility] ([facility]) [address] [place], [address], 10/16/2017 15:03:07 10/16/19 18 10/16/2017 urina lysis , refle x cultu re nitrite Negati ve negati ve Not Available [facility] ([facility]) [address] [place], [address], 10/16/2017 15:03:07 10/16/19 18 10/16/2017 urina lysis , refle x cultu re leukocyte esterase, ur Negati ve negati ve Not Available [facility] ([facility]) [address] [place], [address], 10/16/2017 15:03:07 10/16/19 18 10/16/2017 CBC w/ auto diff WBC 5.58 K/uL 3.40-1 1.20 Not Available [facility] ([facility]) [address] [place], [address], 10/16/2017 16:30:11 10/16/19 18 10/16/2017 CBC w/ auto diff RBC 4.75 M/uL 4.50-5 .50 Not Available [facility] ([facility]) [address] [place], [address], 10/16/2017 16:30:11 10/16/19 18 10/16/2017 CBC w/ auto diff HGB 13.7 g/dL 13.0-1 7.0 Not Available [facility] ([facility]) [address] [place], [address], 10/16/2017 16:30:11 10/16/19 18 10/16/2017 CBC w/ auto diff HCT 39.0 % 40.0-5 1.0 low Not Available [facility] (Outpatient) [address] [place] [address], [id number], 10/16/2017 16:30:11 10/16/19 18 10/16/2017 CBC w/ auto diff plt 218 K/uL 130-40 0 Not Available [facility] (Outpatient) [address] [place] [address], [id number], 10/16/2017 16:30:11 10/16/19 18 10/16/2017 CBC w/ auto diff MCV 82.1 fL 79.0-9 8.0 Not Available [facility] (Out[facility]) [address] [place] [address], [id number], 10/16/2017 16:30:11 10/16/19 18 10/16/2017 CBC w/ auto diff MCH 28.8 pg 27.0-3 4.8 Not Available [facility] (Outpatient) [address] [place] [address], [id number], 10/16/2017 16:30:11 10/16/19 18 10/16/2017 CBC w/ auto diff MCHC 35.1 g/dL 31.5-3 6.0 Not Available [facility] (Out[facility]) [address] [place], [address], 10/16/2017 16:30:11 10/16/19 18 10/16/2017 CBC w/ auto diff RDW 12.8 % 10.8-1 4.6 Not Available [facility] (Out[facility]) [address] [place] [address], [id number], 10/16/2017 16:30:11 10/16/19 18 10/16/2017 CBC w/ auto diff MPV 10.9 fL 9.4-12 .4 Not Available [facility] (Out[facility]) [address] [place] [address], [address], 10/16/2017 16:30:11 10/16/19 18 10/16/2017 CBC w/ auto diff NRBC 0.00 /100_ WBCs Not Available [facility] (Outpatient) [address] [place] [address], [address], 10/16/2017 16:30:11 10/16/19 18 10/16/2017 CBC w/ auto diff absolute NRBC 0.00 K/uL Not Available [facility] (Outpatient) [address] [place] [address], [address], 10/16/2017 16:30:11 10/16/19 18 10/16/2017 CBC w/ auto diff diff method Auto Not Available [facility] (Out[facility]) [address] [place], [address], 10/16/2017 16:30:11 10/16/19 18 10/16/2017 CBC w/ auto diff neuts 54.2 % 45.30- 77.70 Not Available [facility] (Outpatient) [address] [place] [address], [address], 10/16/2017 16:30:11 10/16/19 18 10/16/2017 CBC w/ auto diff lymphs 32.1 % 12.30- 39.70 Not Available [facility] (Out[facility]) [address] [place], [address], 10/16/2017 16:30:11 10/16/19 18 10/16/2017 CBC w/ auto diff monos 10.4 % 4.10-1 2.80 Not Available [facility] (Out[facility]) [address] [place], [address], 10/16/2017 16:30:11 10/16/19 18 10/16/2017 CBC w/ auto diff eos 2.7 % 0-7.2 Not Available [facility] (Out[facility]) [address] [place] [address], [address], 10/16/2017 16:30:11 10/16/19 18 10/16/2017 CBC w/ auto diff basos 0.4 % 0-2.80 Not Available [facility] (Out[facility]) [address] [place], [address], 10/16/2017 16:30:11 10/16/19 18 10/16/2017 CBC w/ auto diff granulocytes , immature (%) 0.2 % 0.0-0. 9 Not Available [facility] ([facility]) [address] [place], [address], 10/16/2017 16:30:11 10/16/19 18 10/16/2017 CBC w/ auto diff absolute neuts 3.03 K/uL 1.40-7 .70 Not Available [facility] ([facility]) [address] [place], [address], 10/16/2017 16:30:11 10/16/19 18 10/16/2017 CBC w/ auto diff absolute lymphs 1.79 K/uL 0.60-3 .20 Not Available [facility] ([facility]) [address] [place], [address], 10/16/2017 16:30:11 10/16/19 18 10/16/2017 CBC w/ auto diff absolute monos 0.58 K/uL 0.11-0 .59 Not Available [facility] ([facility]) [address] [place], [address], 10/16/2017 16:30:11 10/16/19 18 10/16/2017 CBC w/ auto diff absolute eos 0.15 K/uL 0.01-0 .50 Not Available [facility] ([facility]) [address] [place], [address], 10/16/2017 16:30:11 10/16/19 18 10/16/2017 CBC w/ auto diff absolute basos 0.02 K/uL 0.00-0 .08 Not Available [facility] ([facility]) [address] [place], [address], 10/16/2017 16:30:11 10/16/19 18 10/16/2017 CBC w/ auto diff granulocytes , immature 0.01 K/uL 0.00-0 .05 Not Available [facility] ([facility]) [address] [place], [address], 10/16/2017 16:30:11 10/16/19 18 10/16/2017 BMP, blood sodium 142 mmol/ L 133-14 6 Not Available [facility] [address] [place], [address], 10/16/2017 16:53:22 10/16/19 18 10/16/2017 BMP, blood chloride 105 mmol/ L 96-108 Not Available [facility] [address] [place], [address], 10/16/2017 16:53:22 10/16/19 18 10/16/2017 BMP, blood potassium 4.7 mmol/ L 3.3-5. 1 Not Available [facility] [address] [place], [address], 10/16/2017 16:53:22 10/16/19 18 10/16/2017 BMP, blood CO2 29 mmol/ L 21-35 Not Available [facility] ([facility]) [address] [place] [address], [address], 10/16/2017 16:53:22 10/16/19 18 10/16/2017 BMP, blood BUN 6 mg/dL 6-19 Not Available [facility] ([facility]) [address] [place] [address], [address], 10/16/2017 16:53:22 10/16/19 18 10/16/2017 BMP, blood creatinine 0.90 mg/dL 0.5-1. 5 Not Available [facility] ([facility]) [address] [place] [address], [address], 10/16/2017 16:53:22 10/16/19 18 10/16/2017 BMP, blood glucose 229 mg/dL 70-99 high Not Available [facility] ([facility]) [address] [place] [address], [address], 10/16/2017 16:53:22 10/16/19 18 10/16/2017 BMP, blood calcium 9.6 mg/dL 8.4-10 .3 Not Available [facility] ([facility]) [address] [place] [address], [address], 10/16/2017 16:53:22 10/16/19 18 10/16/2017 BMP, blood eGFR >60 mL/mi n/1.7 3m2 >60 Abnor mal if <60. If patie nt is Afric an-Am kwabena n, multi ply the resul t by 1.21. Not Available [facility] ([facility]) [address] [place] [address], [address], 10/16/2017 16:53:22 10/16/19 18 10/16/2017 BMP, blood anion gap 13 mmol/ L 10-20 Not Available [facility] ([facility]) [address] [place] [address], [address], 10/16/2017 16:53:22 10/16/19 18 10/16/2017 lipas e, serum or plasm a lipase 25 U/L 16-63 Not Available [facility] [address] [place], [address], 10/16/2017 16:53:24 10/16/19 18 10/16/2017 lfts (hepa tic panel ) alkaline phosphatase 98 U/L 39-117 Not Available [facility] [address] [place], [address], 10/16/2017 16:53:26 10/16/19 18 10/16/2017 lfts (hepa tic panel ) total bilirubin 0.5 mg/dL 0-1.2 Not Available [facility] ([facility]) [address] [place] [address], [address], 10/16/2017 16:53:26 10/16/19 18 10/16/2017 lfts (hepa tic panel ) direct bilirubin <0.2 mg/dL 0-0.3 Not Available [facility] ([facility]) [address] [place], [address], 10/16/2017 16:53:26 10/16/19 18 10/16/2017 lfts (hepa tic panel ) bilirubin (indirect) NOT CALCUL ATED mg/dL 0-1.5 Not Available [facility] ([facility]) [address] [place] [address], [address], 10/16/2017 16:53:26 10/16/19 18 10/16/2017 lfts (hepa tic panel ) AST 14 U/L 0-37 Not Available [facility] ([facility]) [address] [place] [address], [address], 10/16/2017 16:53:26 10/16/19 18 10/16/2017 lfts (hepa tic panel ) ALT 16 U/L 0-40 Not Available [facility] ([facility]) [address] [place] [address], [address], 10/16/2017 16:53:26 10/16/19 18 10/16/2017 lfts (hepa tic panel ) total protein 7.4 g/dL 6.5-8. 0 Not Available [facility] ([facility]) [address] [place], [address], 10/16/2017 16:53:26 10/16/19 18 10/16/2017 lfts (hepa tic panel ) albumin 4.3 g/dL 3.9-4. 8 Not Available [facility] ([facility] [address] [place], [address], 10/16/2017 16:53:26 10/16/19 18 10/16/2017 lfts (hepa tic panel ) globulin 3.1 g/dL 1-4.8 Not Available [facility] ([facility] [address] [place], [address], 10/16/2017 16:53:26 10/16/19 18 10/16/2017 lfts (hepa tic panel ) A/G ratio 1.39 ratio 1.00-4 .80 Not Available [facility] [address] [place], [address], 10/16/2017 16:53:26 04/12/20 16 04/12/2016 XR, chest , 2 view No observ ation record ed. sbrulotte [facility] [address] [place], [address], 04/18/2016 07:51:26 06/16/20 16 04/12/2016 chest 2 [...] DORIAN MON MD 2015 06:35 AM mmastroberti [facility] [address] [facility], [place], [address], 06/17/2016 10:45:13 03/09/20 17 03/09/2017 CT, abdom [...] . Initia l report render ed by [facility]. POS - CDHRAD BOARDW S7 Electr onical ly Signed by: MO CERON on 017 10:12 AM Techno logist : NINI MONICA KEVIN Transc ribed by: Yuli allen, PS360 Result s 2016 10:04 AM Electr onical ly Signed By: MO CERON MD 2016 10:12 AM [facility] [address] [place] [address], [address], 03/13/2017 13:11:35 10/17/19 18 10/16/2017 xr abdom [...] P.S. LQP X 7 MONTHS ROBLESSindhu ISAAC [facility] [address] [place] [address], [address], 10/17/2017 08:11:32 Result Notes None recorded. Problems Name Problem SNOMED Code Status Onset Date Resolution Date Notes Provider Name and Address Organization Details Recorded Time Essential hypertensio n 18318069 Completed 01/20/2016 Robles Isaac MD [address] [place], [place] [address], [address], [facility] 6 23:10:47 Diabetes mellitus 76177994 Completed 01/20/2016 Robles Isaac MD [address] [place], [place] [address], [address], [facility] 6 23:10:50 Skin lesion 75537456 Completed 01/20/2016 Robles hendrickson MD [address] [place], [place] [address], [address], [facility] 6 23:10:54 Benign essential hypertensio n 2007192 Active Robles Isaac MD [address] [place], [place] [address], [address], [facility] 6 08:53:56 Mixed hyperlipide muna 971924220 Active Robles Isaac MD [address] [place], [place] [address], [address], [facility] 6 08:53:56 Uncontrolle d type 2 diabetes mellitus 956645795 Active Robles Isaac MD [address] [place], [place] [address], [address], [facility] 6 08:53:56 Problem Notes None recorded. Procedures Surgical History Date Name Laterality Status Provider Name and Address Organization Details Recorded Time 6 POC Urinalysis Testing completed Yocasta Brownlee [facility] 05/31/2016 16:24:56 4 Excision completed Robles Isaac MD [address] [place] [address], [address], [facility] 10/15/2013 11:15:56 Imaging Results Imaging Date Name Status LastModified by Organiz ation Details LastModified Time 04/12/2016 XR, chest, 2 view completed [facility] [address] [facility], [place], [address], 04/18/2016 07:51:26 04/12/2016 chest 2 V completed mmastroberti [facility] [address] [place], [address], 06/17/2016 10:45:13 03/09/2017 CT, abdomen + pelvis, w/o contrast completed [facility] [address] [place], [address], 03/13/2017 13:11:35 10/16/2017 xr abdomen series supine with decubitis/ere ct and single view chest completed [facility] [address] [place], [address], 10/17/2017 08:11:32 Procedure Notes None recorded. Medical [...] Available Not Available No t Available [employer] [place] Lite kit active Not Available Not Available Not Available Vitals Date Recorded Body height Body weight Body mass index (BMI) Systolic blood pressure Diastolic blood pressure Provider Name and Address Organization Details Last Updated DateTime 05/03/2016 158.115 cm 66329.45 g 27.4 kg/m2 144 mm[Hg] 74 mm[Hg] Alessandra Orellana MA [facility] 6 08:30:54 Date Recorded Body height Heart rate Oxygen saturation Oxygen saturation in Arterial blood by Pulse oximetry Systolic blood pressure Diastolic blood pressure Provider Name and Address Organization Details Last Updated DateTime 6 158.115 cm 85 /min 98 % 98 % 142 mm[Hg] 88 mm[Hg] [facility] 6 16:06:44 Date Recorded Body height Systolic blood pressure Diastolic blood pressure Provider Name and Address Organization Details Last Updated DateTime 06/06/2016 158.115 cm 142 mm[Hg] 72 mm[Hg] [facility] 06/06/2016 09:58:35 Date Recorded Body height Body weight Body mass index (BMI) Systolic blood pressure Diastolic blood pressure Provider Name and Address Organization Details Last Updated DateTime 06/22/2016 158.115 cm 32786.26 g 27.3 kg/m2 150 mm[Hg] 80 mm[Hg] [facility] 6 11:20:12 Social History Question Answer Notes LastModified by Organizat ion Details LastModified Time Tobacco Smoking Status Never Smoker Alessandra Orellana MA [facility] 10/02/2013 10:35:52 What Is Your [...] 10/02/2013 What Is Your Occupation? Works At [employer] fkim Information not available 10/02/2013 How Many [...] SNOMED-CT Code Diagnosis ICD10 Code Diagnosis Note [id number] Robles Isaac MD , [facility], [address] [place] [address] 10/02/2013 10:13:34 10/02/2013 11:26:17 Essential hypertension 04090095 Elevated BP. Previously not engaged in care. Low salt diet recommende d. Start Chlorthali done. Will add SHUN-I once renal function establishe d. Follow up in 1 week. Advised to get fasting labwork tomorrow. Diabetes mellitus 86194434 Patient with new-onset diabetes. Symptoms of polydipsia [...] week. Screening for malignant neoplasm of colon 914827434 Skin lesion 52089853 Inv olving the left posterior upper arm. Likely epidermoid cyst. Schedule for an excision. No clinical evidence of cellulitis or acute abscess. Influenza vaccine needed [id number] 106 Administra tion of diphtheria, pertussis, and tetanus vaccine [id number] Robles Isaac MD , [facility], [address] [place] [address] 10/09/2013 09:59:46 10/09/2013 13:05:30 Essential hypertension 85607965 Previously not engaged in care. Tolerating Chlorthali done. BP improved. Low salt diet recommende d. Will add Lisinopril 2.5mg po daily. Repeat BMP at his next visit. Diabetes mellitus 04360713 Patient with new-onset diabetes. Symptoms of polydipsia [...] start SHUN-I. Follow up in 1 week. [id number] Robles Isaac MD , [facility], [address] [place] [address] 10/15/2013 10:06:38 10/15/2013 13:08:04 Diabetes mellitus 73273634 Patient with new-onset diabetes. Symptoms of polydipsia [...] in 1 week. Epidermoid cyst of skin 812169261 Non-infect ed, left upper arm cyst removed [...] week for wound check and suture removal. [id number] Robles Isaac MD , [facility], [address] [place] [address] 10/23/2013 14:35:31 10/23/2013 15:12:07 Chest pain 58803834 His symptoms of left-sided chest pain and [...] s for UC/ER use discussed. Skin lesion 24563831 Inv olving the left posterior upper arm. Sutures removed. Hypertroph ic scar and contact dermatitis noted. Purulent discharge expressed with suture removal. Wound care discussed. Gauze applied. Follow up early next week for a follow up. Consider General Surgery referral if not healed completely . [id number] Robles Isaac MD , [facility], [address] [place] [address] 10/30/2013 08:21:52 10/30/2013 08:54:16 Essential hypertension 20103277 Previously was not engaged in care. Tolerating Chlorthali done and Lisinopril . BP markedly improved. Low salt diet recommende d. Check BMP at his next visit. Diabetes mellitus 83558116 Patient with new-onset diabetes. Symptoms of polydipsia [...] discussed. Also with slightly elevated MA/Cr ratio. SHNU-I started previously . Skin lesion 89630109 Inv olving the left posterior upper arm. Sutures removed last week. Hypertroph ic scar and contact dermatitis noted at the time. Now healing well. No fluctuance . Consider General Surgery referral if not healed completely . Chest pain 68145655 His symptoms of left-sided chest , SOB [...] symptoms. Indication s for UC/ER use discussed. [id number] Robles Isaac MD , [facility], [address] [place] [address] 11/27/2013 09:03:19 11/27/2013 09:47:48 Diabetes mellitus 90655373 Patient with recent diagnosis of diabetes. Symptoms [...] elevated MA/Cr ratio. SHUN-I started. Essential hypertension 13663512 Previously was not engaged in care. Tolerating Chlorthali done. Erroneousl y stopped Lisinopril . Will resume. No intoleranc e issues. BP markedly improved. Low salt diet recommende d. Epidermoid cyst of skin 362267205 Non-infect ed, left upper arm cyst removed at his previous visit due to persistent pain. Patient with residual scarring. No current evidence of infection. [id number] Robles Isaac MD , [facility], [address] [place] [address] 02/19/2014 11:04:44 02/19/2014 12:04:40 Adult health examination 940064240 See Risk Assessment and Lifestyle Change Counseling section above. Tdap vaccine UTD. PNA vaccine administer ed today. Home/vehic le/sexual safety reviewed. Not sexually active. Colonoscop y scheduled 03/2014. Counseling 562739114 Benign ess ential hypertension 9985360 Previously was not engaged in care. Tolerating Chlorthali done and Lisinopril . BP markedly improved. Low salt diet recommende d. Mixed hyperlipidemia 851744104 Fair FLP with LDL 92. Would like better control given his underlying diabetes, but also struggles with polypharma cy. Low fat/choles terol diet and exercise recommende d. Diarrhea 43245099 Patien t with chronic diarrhea intermitte ntly. Recently evaluated by Dr. Burrows (GI). Scheduled to have a colonoscop y in 03/2014. Recent IgA mildly positive (other celiac markers negative). No BRBPR/boris na. No abdominal pain. Uncontroll ed type 2 diabetes mellitus 596447122 States home BS 140-200. Improved Hgb A1c [...] hydration discussed. Administra tion of pneumococcal vaccine [id number] Robles Isaac MD , [facility], [address] [place] [address] 04/09/2014 07:59:46 04/09/2014 08:49:22 Uncontrolled type 2 diabetes mellitus 192917144 States home BS 120-150. Overall improved Hgb [...] discussed. Ample oral hydration discussed. Essential hypertension 61919293 Previously was not engaged in care. Tolerating Chlorthali done. Erroneousl y stopped Lisinopril . Will resume. No intoleranc e issues. BP markedly improved. Will titrate up Lisinopril as needed. Low salt diet recommende d. [id number] Robles Isaac MD , [facility], [address] [place] [address] 07/07/2014 07:47:01 07/07/2014 08:23:26 Mixed hyperlipidemia 450122754 Patient with LDL of 150 (06/2014). However, his 10-year risk of KS is 7%. New AHA/ACC guideline discussed. Advised on low fat/choles terol diet and exercise. Influenza vaccine needed [id number] 106 Uncontroll ed type 2 diabetes mellitus 479102926 States home BS 100-160. Overall improved Hgb [...] discussed. Ample oral hydration discussed. Essential hypertension 37851990 Previously was not engaged in care. Tolerating Chlorthali done and Lisinopril . No intoleranc e issues. BP markedly improved. Low salt diet recommende d. [id number] Robles Isaac MD , [facility], [address] [place] [address] 11/25/2015 08:22:18 11/25/2015 09:20:28 Benign essential hypertension 4193002 I10 Blood pressure elevated. Lost insurance in 2013. Has been off his medication s. No CP/SOB/CUEVAS . Recommende d to continue to work on diet, exercise, and lowering salt intake. Will resume Lisinopril (but will hold off on Chlorthali done). Check BMP. Mixed hyperlipidemia 267 788769 E78.2 Patient with previous LDL of 150 (06/2014). However, his 10-year risk of KS is 7%. New AHA/ACC guideline discussed. Advised on low fat/choles terol diet and exercise. Uncontroll ed type 2 diabetes mellitus 903820418 E11.65 Out of care for over 1 [...] oral hydration discussed. Unexplaine d weight loss 582054736 R63.4 Patient with 15 lbs weight loss since his last visit. Denies bleeding. Out of medication for over 1 year. Will continue to monitor. [id number] Robles Isaac MD , [facility], [address] [place] [address] 12/14/2015 10:17:02 12/15/2015 08:21:49 Benign essential hypertension 8049812 I10 Blood pressure improved. Lost insurance in 2013. Was off his medication s. No CP/SOB/CUEVAS . Recommende d to continue to work on diet, exercise, and lowering salt intake. Recently started Lisinopril (but will hold off on Chlorthali done). Mixed hyperlipidemia 267 408934 E78.2 Patient with previous LDL of 150 (06/2014). However, his 10-year risk of KS is 7%. New AHA/ACC guideline discussed. Advised on low fat/choles terol diet and exercise. Uncontroll ed type 2 diabetes mellitus 641328666 E11.65 Out of care for over 1 [...] medication s discussed. Ample oral hydration discussed. [id number] Robles Isaac MD , [facility], [address] [place] [address] 01/11/2016 08:21:26 01/11/2016 08:52:49 Benign essential hypertension 2932684 I10 Blood pressure elevated, but previously well [...] if persistent ly elevated. Mixed hyperlipidemia 267 785482 E78.2 Patient with previous LDL of 150 (06/2014). However, his 10-year risk of KS is 7%. New AHA/ACC guideline discussed. Advised on low fat/choles terol diet and exercise. Uncontroll ed type 2 diabetes mellitus 343762887 E11.65 Out of care for over 1 [...] hydration discussed. Right uppe r quadrant pain 167002488 R10.11 Patient with 1-week duration of RUQ abdominal pain. No clinical evidence of acute abdomen. Will check US to further evaluate. Advised to avoid high fat diet. Indication s for UC/ER use reviewed. [id number] Robles Isaac MD , [facility], [address] [place] [address] 01/20/2016 08:45:30 01/20/2016 09:28:43 Cholelithiasis without obstruction 71408930 K80.20 Patient with 1-week duration of RUQ abdominal pain. No clinical evidence of acute abdomen. Abdominal US revealed gallstones . Will refer to General Surgery for further evaluation . Advised to avoid high fat diet. Indication s for UC/ER use reviewed. Benign ess ential hypertension 4536271 I10 Blood pressure improved overall. Lost insurance in 2013. Was off his medication s. No CP/SOB/CUEVAS . Recommende d to continue to work on diet, exercise, and lowering salt intake. Recently started Lisinopril (but will hold off on Chlorthali done). Mixed hyperlipidemia 267 194097 E78.2 Patient with previous LDL of 150 (06/2014). However, his calculated 10-year risk of KS is 7%. New AHA/ACC guideline discussed. Advised on low fat/choles terol diet and exercise. Uncontroll ed type 2 diabetes mellitus 561232319 E11.65 Out of care for over 1 [...] medication s discussed. Ample oral hydration discussed. [id number] Robles Isaac MD , [facility], [address] [place] [address] 05/03/2016 08:21:49 05/03/2016 08:48:10 Neuropathy 672661600 G62.9 Patient reports bilateral inner thigh numbness and tingling. No weakness. No urine incontinen ce symptoms. Trial of Gabapentin discussed. Uncontroll ed type 2 diabetes mellitus 436727073 E11.65 Recently increased the Glipizide dose. Previously [...] oral hydration discussed. Benign ess ential hypertension 4406800 I10 Blood pressure improved overall. Lost insurance in 2013. Was off his medication s. No CP/SOB/CUEVAS . Recommende d to continue to work on diet, exercise, and lowering salt intake. Recently started Lisinopril (but will hold off on Chlorthali done). [id number] PRABHU Mauricio-CALEB , [facility], [address] [place] [address] 05/31/2016 15:55:20 05/31/2016 16:50:42 Active or passive immunization 663591296 Z23 Diarrhea 43398854 R19.7 possibly secondary to surgery, poor historian, symptoms worsening in last 2 weeks. labs as ordered below. advised follow up within 4-7 days. Dysuria 54189285 R30.0 UA labs consistent with poorly controlled DM. culture pending. follow up with PCP, if symptoms worsen be seen. Uncontroll ed type 2 diabetes mellitus 796944706 E11.65 reviewed importance of blood sugar control. pt to follow up with pcp. [id number] BHARAT Mauricio , [facility], [address] [place] [address] 06/06/2016 09:54:11 06/06/2016 10:24:25 Diarrhea 23067060 R19.7 possible s/e of metformin, change ir to ER, follow up in 2 weeks. Uncontroll ed type 2 diabetes mellitus 957856576 E11.65 possible metformin contributi ng to diarrhea, change to ER. monitor diarrhea, follow up in 2 weeks for disease management re diarrhea and blood sugar. Pain of sh oulder region 91381144 M25.512 subscapula r pain consistent with muscle strain. continue with supportive measures. [id number] BHARAT Mauricio , [facility], [address] [place] [address] 06/22/2016 11:10:57 06/24/2016 09:39:47 Shoulder joint pain 122780237 M25.519 right sub scapular muscle spasm, pt notes weakness in right shoulder suggestive of rotator cuff involvemen t, but no focal weakness on exam , muscle tension noted. refer for PT, apply heat, follow up for failure to resolve. Diabetes mellitus 477645 09 E11.9 fasting sugar elevated, referral to DNE consider victoza or insulin. [id number] Julieta Barrett RN, BSN, [employer] AFFAIRS [facility] DM Education , [facility] [address] [place] [address] 07/04/2016 07:51:58 07/08/2016 09:50:09 Uncontrolled type 2 diabetes mellitus [id number] E11.65 Met with Greg today for Type 2 diabetes, kindly referred by Kyra Mauro NP. Greg is accompanie d by his daughter, who helps to translate for him. He is Malawian speaking. His daughter reports she lives with [...] is, therefore, we will discuss with Kyra Mauro, STEPHANIE before recommendi ng to determine if his [...] Delong Member ID Guarantor Name 05/03/2016 1 [facility] - DIRECT CONNECTORCARE TYPE II (HMO) [facility] [id number] [facility] 05/31/2016 1 [facility] - DIRECT CONNECTORCARE TYPE II (HMO) [facility] [id number] [facility] 06/06/2016 1 [facility] - DIRECT CONNECTORCARE TYPE II (HMO) [facility] [id number] 001 [facility] 06/22/2016 1 [facility] - DIRECT CONNECTORCARE TYPE II (HMO) [facility] [id number] 001 [facility] 07/04/2016 1 [facility] - DIRECT CONNECTORCARE TYPE II (HMO) [facility] [id number] 001 [facility] Notes Date Note Type Note Provider Name [...] undergone laparoscopic cholecystectomy in 02/2016. Went to [facility] 3 weeks ago due to CP. His CXR, CBC, Troponin and CMP all within normal, except for elevated BS. No recurring symptoms since. Robles Isaac MD [address] [place] [address], [phone], [facility] 05/03/2016 23:18:53 05/31/2016 text/html pt presents with [...] procedure. diarrhea worse. no fever. Kyra Mauro [address], [address], [facility] 06/05/2016 16:26:27 06/06/2016 text/html back pain, start [...] 2013).notes diarrhea may be related to metformin. JUAN Mauricio[address], [address], [facility] 06/06/2016 10:22:13 06/22/2016 text/html pt has pain in b ack to front around shoulder pain is interfering with ability to sleep.pain lasts all day.feels as if the shoulder falls asleep and drops. Kyra Mauro [address], [phone], [facility] 06/22/2016 11:34:50 07/04/2016 text/html Diabetes Self Management History & IntakeReported bypatient.Patient HistoryPatient chief complaint today:Needs help interpreting blood sugars; has a family history of diabetes; Completed Diabetes Self-Assessment Form received, reviewed and sent for chart upload. 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 Intake Form) Julieta Barrett RN, BSN, [address], [address], [facility] 07/04/2016 16:03:29
== END ==
LOC: HO.CARD 08:04
PROVIDERS: PCP Internal Medicine; Visit Provider Internal Medicine Cardiovascular Disease
DX: I25.10 Atherosclerotic heart disease of native coronary artery without angina pectoris (principal)
CPT/HCPCS: 78452; 93017; A9500; J0280; J2785

== ENCOUNTER → 2025-01-13 08:07 | Outpatient (BNV) | payer MEDICARE, SELFPAY | PROVIDERS: PCP Internal Medicine | DX: I21.02 ST elevation (STEMI) myocardial infarction involving left anterior descending coronary artery (principal) | CPT/HCPCS: 78452; 93016; 93018 ==

== ENCOUNTER 2025-01-17 09:07 | Outpatient (REF) | payer MEDICARE, SELFPAY ==
--- OUTSIDE RECORDS SUMMARY | 2025-01-17 09:22 | XMS_ITS | Clinical Summary ---
Author Organization [employer] Address [address] [facility] 7[address] [place] [address] Care Team Providers Care Cigar Packer And Shader Name Role Phone Carolina Siddiqi MD Primary [...] 1 tablet by mouth Once per day. Active atorvastatin (Lipitor) 80 MG tablet Take [...] hyperglycemia, without long-term current use of insulin ([facility]) Use to test blood sugar 2 times daily 100 each 12 024 2024 Active Blood Glucose Monitoring Suppl (FreeStyle [place] Lite) w/Device kitIndications:Ty pe 2 diabetes mellitus with hyperglycemia, without long-term current use of insulin ([facility]) Use to test blood sugar 2 times daily 1 kit Active sacubitril-valsar stoddard (Entresto) 97-103 MG tabletIndications :Primary hypertension,Healthcare Prof nilam systolic congestive heart failure ([facility]) Take 1 tablet by mouth 2 times daily. 60 tablet 12 024 2024 Active TRUEplus Lancets 33G miscIndications:T ype 2 diabetes mellitus with hyperglycemia, without long-term current use of insulin ([facility]) USE DIRECTED TO TEST BLOOD SUGAR EVERY DAY 100 each 11 Active glucose blood (FREESTYLE LITE) test stripIndications: Type 2 diabetes mellitus with hyperglycemia, without long-term current use of insulin ([facility]) USE DIRECTED TO TEST BLOOD [...] hyperglycemia, without long-term current use of insulin ([facility]) USE DIRECTED TO TEST BLOOD SUGAR TWICE DAILY 100 each 3 Active fluticasone (Flonase) 50 MCG/ACT nasal sprayIndications: Rhinitis, unspecified type Administer 1-2 sprays into each nostril Once per day. Shake gently. Before first use, prime pump. After use, clean tip and replace cap. 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 [...] stage. ?? PLAN: 1. Follow up with [facility]: Not recommended for follow-up 2. Patient goal is to improve health 3. Behavioral Recommendations a. Comply with medical recommendations b. Begin incorporating healthy changes in daily life c. May utilize [facility] and/or hotline, if symptoms worsen d. May reach out to [facility] for additional support Assessment & Plan [...] Encounters Date Type Department Care Team Description 01/13/2025 Orders Only [facility] External Provider, [facility] 12/27/2024 Refill [facility] [address] [place] [address] Carolina Siddiqi MD 12/11/2024 Refill [facility] [address] [place] [address] Carolina Siddiqi MD 12/10/2024 9:15 AM EDT Office Visit [facility] [address] [place] [phone] Carolina Siddiqi MD Primary osteoarthritis of right knee (Primary Dx); Type 2 diabetes mellitus with hyperglycemia, without long-term current use of insulin ([facility]); Onycholysis; Chronic pain of right knee 12/10/2024 Travel 12/09/2024 Telephone [facility] [address] [place] [address] Carolina Siddiqi MD CHART PREP 11/29/[address] [address] Carolina Siddiqi MD Prior Authorization ([employer] [facility] Request: Tylor) 11/29/2024 Patient Outreach [facility] [address] [place] [address] Carolina Siddiqi MD Pre-visit Planning ([facility] screening completed on 10/07/2024) 10/25/2024 Refill [facility] [address] [place] [address] Carolina Siddiqi MD Type 2 diabetes mellitus with hyperglycemia, without long-term current use of insulin ([facility]) 10/24/2024 Orders Only [facility] External Provider, [facility] from Last 3 Months Immunizations Name [...] COVID-19 Vaccine ( season) 2024 02/19/2021, 01/22/2021 Eye Exam 01/16/2025 01/17/2024, 05/0 04/2024, 01/17/2024, [...] Procedure Name Priority Date/Time Associated Diagnosis Comments NM HEART PERFUSION SPECT STRESS AND REST Routine 01/13/2025 8:00 AM EDT POCT GLYCATED HEMOGLOBIN, TOTAL Routine 12/10/2024 9:25 AM EDT Type 2 diabetes mellitus with hyperglycemia, without long-term current use of insulin (CMS/HCC) POCT GLUCOSE Routine 12/10/2024 9:23 AM EDT Type 2 diabetes mellitus with hyperglycemia, without long-term current use of insulin (CMS/HCC) US ABDOMEN LIMITED Routine 10/25/2024 6: 12 AM EST LIPID PANEL, STANDARD Routine 09/13/2024 9:46 AM EST LAB COLOGUARD?? COLON CANCER SCREEN Routine 09/27/2023 8:35 AM EST Colon cancer screening from Last 3 Months or Most Recently Relevant to Health Maintenance Results * NM heart perfusion SPECT stress and rest (01/13/2025 8:00 AM EDT) Anatomical Region Laterality Modality Body Nuclear Medicine 01/13/2025 8:00 AM EDT Narrative 01/15/2025 3:44 PM EDT ? [facility] ?[address] ?[place] [address] ?Nuclear Medicine Report ? Signed ? Patient: Greg Land ?MR#: [id number] ?? 657 ? : 1960 ?Acct:[id number] ? Age/Sex: 64 / M ?ADM Date: 01/13/25 ? Loc: HO.CARD ? Attending Dr: aTn Mcwilliams MD ? Ordering Physician: Tan Mcwilliams MD ?? Date of Service: 01/13/25 ?? Procedure(s): NM mi perf SPECT rest ?? str ?? Accession Number(s): [id number] ? cc: Carolina Siddiqi MD; Tan Mcwilliams MD ? Lexiscan Myocardial perfusion study ? Indication: ?? Cardiomyopathy, preoperative evaluation ? Technique: ? The patient was brought in for a Lexiscan perfusion study on 01/13/2025 ?? and was injected 0.4 mg of Lexiscan intravenously. Within a minute of ?? this injection 25 mCi of sestamibi was given intravenously. Images were ?? obtained using the SPECT gamma camera interlaced with the gating ?? device. Images were obtained in supine position. ? Resting perfusion study was performed on 01/14/2025. Patient was ?? administered 25 mCi of sestamibi intravenously at rest. Images were ?? then obtained in supine position. Total DLP 68 mGy-cm. ? Images were processed with the software and compared side to side in ?? short axis, horizontal long axis and vertical long axis views. ? Findings: ? Raw aquisition reviewed. ? The stress perfusion study showed ??absent tracer uptake in the mid to ?? distal part of anterior wall, apex, distal part of inferior wall. No ?? significant change there is slight improvement in the inferior wall ?? uptake and hence could've components of diaphragmatic attenuation ?? artifact. The gated study shows reduced LV systolic function with ?? calculated LVEF of 41%. LV cavity is dilated in size. The gated study ?? shows reduced ??wall thickening and contraction of above involved ?? segments. ? Resting study shows absent tracer uptake in the mid to distal part of ?? anterior wall, apex, distal inferior wall mostly similar to the stress ?? acquisition. There is some improvement in the inferior wall uptake with ?? CT attenuation correction and hence could've components of ?? diaphragmatic attenuation artifact. Gating at rest reveals with ?? ejection fraction at 33%. Involved segments above are akinetic. ? The findings are consistent with fixed perfusion defect in the mid to ?? distal part of anterior wall, apex, mid to distal part of inferior wall. ? NM/NM mi perf SPECT rest ?? str ?? Impression: ? 1. 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 No clear ischemia. ?? 2. ??Gated LVEF is 41% during stress and 33% during rest. Correlate with ?? echocardiogram. ?? 3. Transient ischemic dilatation not present.. ? EKG component of the test reported separately. ? Electronically signed by: ??Levi Wilkes MD ??01/15/2025 03:41 ?? PM EDT RP ? Dictated By: ?Levi Wilkes MD ? Signed By: ?<Electronically signed by Levi Wilkes MD in OV> ?01/15/25 1541 ? DD/ 0800 ? TD/TT: 01/14/25 1430 ? Nutrition Professor: ? Procedure Note Donotuseinterpreter, Image - 01/15/[address] [address] Nuclear Medicine Report Signed Patient: Rosita Land#: [id number] 657 : 9Acct:[id number] Age/Sex: 64 / MADM Date: 01/13/25 [facility]: Tan Mcwilliams MD Ordering Physician: Tan Mcwilliams MD Date of Service: 01/13/25 Procedure(s): NM mi perf SPECT rest str Accession Number(s): [id number] cc: Carolina Siddiqi MD; Tan Mcwilliams MD Lexiscan Myocardial perfusion study Indication: Cardiomyopathy, preoperative evaluation Technique: The patient was brought in for a Lexiscan perfusion study on 01/13/2025 and was injected 0.4 mg of Lexiscan intravenously. Within a minute of this injection 25 mCi of sestamibi was given intravenously. Images were obtained using the SPECT gamma camera interlaced with the gating device. Images were obtained in supine position. Resting perfusion study was performed on 01/14/2025. Patient was administered 25 mCi of sestamibi intravenously at rest. Images were then obtained in supine position. Total DLP 68 mGy-cm. Images were processed with the software and compared side to side in short axis, horizontal long axis and vertical long axis views. Findings: Raw aquisition reviewed. The stress perfusion study showed absent tracer uptake in the mid to distal part of anterior wall, apex, distal part of inferior wall. No significant change there is slight improvement in the inferior wall uptake and hence could've components of diaphragmatic attenuation artifact. The gated study shows reduced LV systolic function with calculated LVEF of 41%. LV cavity is dilated in size. The gated study shows reduced wall thickening and contraction of above involved segments. Resting study shows absent tracer uptake in the mid to distal part of anterior wall, apex, distal inferior wall mostly similar to the stress acquisition. There is some improvement in the inferior wall uptake with CT attenuation correction and hence could've components of diaphragmatic attenuation artifact. Gating at rest reveals with ejection fraction at 33%. Involved segments above are akinetic. The findings are consistent with fixed perfusion defect in the mid to distal part of anterior wall, apex, mid to distal part of inferior wall. NM/NM mi perf SPECT rest str Impression: 1. 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 No clear ischemia. 2. Gated LVEF is 41% during stress and 33% during rest. Correlate with echocardiogram. 3. Transient ischemic dilatation not present.. EKG component of the test reported separately. Electronically signed by: Levi Wilkes MD 01/15/2025 03:41 PM EDT Dictated By: Levi Wilkes MD Signed By: <Electronically signed by Levi Wilkes MD inOV> 01/15/25 1541 DD/ 0800 TD/TT: 01/14/25 1430 Nutrition Professor: [facility] External Provider IMG NM PROCEDURES Final Result * (ABNORMAL) POCT HGB A1C (12/10/2024 9:25 AM EDT) Hemoglobin A1C 6.2(A) 4.0 - 6.0 % QC Media Lot # [id number] Lot# Expiration Date 111,926 Blood 12/10/2024 9:25 AM EDT Carolina Mahajan MD POINT OF CARE TEST EN TER/EDIT ORDERABLES Final Result * (ABNORMAL) POCT Glucose (12/10/2024 9:23 AM EDT) Glucose Blood, POC 208(A) 60 - 200 mg/dL QC Media Lot # [id number] Lot# Expiration Date 101,425 Blood Capillary blood specimen / Unknown 12/10/2024 9:23 AM EDT Carolina Mahajan MD POINT OF CARE TEST EN TER/EDIT ORDERABLES Final Result * US Abdomen Limited (10/25/2024 6:12 AM EST) Anatomical Region Laterality Modality Abdomen Ultrasound 10/25/2024 6:12 AM EST Narrative 10/25/2024 6:14 AM EST ? [facility] ?[address] ?[place] [address] ? Ultrasound Report ? Signed ? Patient: Land,Greg ?MR#: [id number] ?? 657 ? : 1960 ?Acct:[id number] ? Age/Sex: 64 / M ?ADM Date: 10/24/24 ? Loc: HO.US ? Attending Dr: Glenda PELLETIER-BC ? Ordering Physician: Glenda Rosa ?? Date of Service: 10/24/24 ?? Procedure(s): US abdomen limited ?? Accession Number(s): [id number] ? cc: Carolina Siddiqi MD; Glenda Rosa-CALEB ? CLINICAL HISTORY: K42.9 - Umbilical hernia [...] ? DD/ 1 ? TD/TT: 10/25/[address] ? Nutrition Professor: ? Procedure Note Marlin, Image - 10/25/[address] [address] Ultrasound Report Signed Patient: Rosita Land#: [id number] 657 : 9Acct:[id number] Age/Sex: 64 / MADM Date: 10/24/24 Loc: HO. Attending Dr: Glenda Rosa [facility] Ordering Physician: Glenda Rosa [facility] Date of Service: 10/24/24 Procedure(s): US abdomen limited Accession Number(s): [id number] cc: Carolina Siddiqi MD; Glenda Rosa [facility] CLINICAL HISTORY: K42.9 - Umbilical hernia [...] in OV> 10/25/24612 DD/ 1 TD/TT: 10/25/24611 Nutrition Professor: us [facility] External Provider IMG US PROCEDURES Final Result * Lipid Panel, Standard (09/13/2024 9:46 AM EST) Triglycerides 73 <150 mg/dL [facility] Comment:Desirable Triglyceri de: less than 150 mg/dLBorderline High Triglyceride 150-199 mg/dLHigh Triglyceride: 200-499 mg/dLVery High Triglyceride: greater than or equal to 5OO mg/dL Cholesterol 113 <200 mg/dL [facility] Comment:Desirable Cholestero l: less than 200 mg/dLBorderline High Cholesterol: 200-239 mg/dLHigh Cholesterol: greater than 239 mg/dL LDL Cholesterol Calculated 47 <100 mg/dL [facility] Comment:Desirable LDL: less than 100 [...] Provider LAB BLOOD ORDERAB LES Final Result [facility] [address] [place] [address] [phone] * Cologuard?? colon cancer screening (09/27/2023 8:35 AM EST) Cologuard Result Negative Negative 10/06/19 5:26 PM EST [employer] (CLIA #:[id number]) Comment: NEGATIVE TEST RESULT. A negative Cologuard [...] cancer. ??Following a negative Cologuard result, the [place] [employer] Society and U.S. Multi-Society Task Force screening guidelines recommend a Cologuard re-screening interval of 3 years. References: [place] [employer] Guideline for Colorectal Cancer Screening: https://www.cancer.org/cancer/momve-xseqrx-vvvajp/calfyoyjj-mzjeouerl-tqnqemo/ac s-rec ommendations.html.; Kvng FINNEY, Rose HAYNES, Alaina GRIFFIN, Colorectal Cancer Screening: Recommendations for Physicians and Patients from the U.S. Multi-Society Task Force on Colorectal Cancer Screening , Am J Gastroenterology 2017; 112:3272-3043. TEST DESCRIPTION: Composite algorithmic analysis of stool [...] screened with both Cologuard and colonoscopy. (Anamaria Clarke et al, N Engl J Med 2014;370(14):3430-4502.) Cologuard may produce a false negative or false positive result (no colorectal cancer or precancerous polyp present at colonoscopy follow up). A negative Cologuard test result does not guarantee the absence of CRC or advanced adenoma (pre-cancer). The current Cologuard screening interval is every 3 years. ([place] [employer] and U.S. Multi-Society Task Force). Cologuard performance data in a 10,000 patient pivotal study using colonoscopy as the reference method can be accessed at the following location: www.LittleLives.Celebrations.com/results. Additional description of the Cologuard test process, warnings and precautions can be found at www.mxHerord.com. Stool specimen (specimen) 09/27/2023 8:35 AM EST 09/28/2023 3:50 PM EST Carolina Mahajan MD LAB MOLECULAR DIAGNOS TICS ORDERABLES Final Result [employer] [facility] (CLIA #:[id number]) [place] [address], from Last 3 Months or Most Recently Relevant to Health Maintenance Insurance [facility] DUAL COMPLETE Care Teams Cigar Packer And Shader Relationship Specialty Start Date End Date Carolina Siddiqi MD [address] [place] [phone] PCP - General Internal Medicine 07/11/23 Jolie Thompson Community Health Worker Case Management 02/14/24
--- OUTSIDE RECORDS SUMMARY | 2025-01-17 09:22 | XMS_ITS | Encounter Summary ---
Author Organization [employer] Address [address] [facility] 7t [place] [address] Care Team Providers Care Drier Attendant Name Role Phone Carolina Siddiqi MD Primary Care Provide r Encounter Details Date Type Department Care Team (Late st Contact Info) Description 02/23/2024 Orders Only [facility] [address] [place] [address] Yeimi Saenz MD [address] [place] [address] Social History Tobacco Use Types Packs/Day Years [...] documented as of this encounter Care Teams Drier Attendant Relationship Specialty Start Date End Date Carolina Siddiqi MD [address] [place] [phone] PCP - General Internal Medicine 07/11/23 Jolie Thompson Community Health Worker Case Management 02/14/24 documented as of this encounter
--- OUTSIDE RECORDS SUMMARY | 2025-01-17 09:22 | XMS_ITS | Encounter Summary ---
Author Organization [employer] Address [address] [facility] [address] [place] [address] Care Team Providers Care Lean Six Sigma Black Belt Name Role Phone Carolina Siddiqi MD Primary Care Provide r Encounter Details Date Type Department Care Team (Late st Contact Info) Description 01/13/2025 Orders Only [facility] External Provider, [facility] Social History Tobacco Use Types Packs/Day [...] t he electric, gas, oil or water [employer] threatened to shut off services in your [...] 9:25 AM EDT) No Ivana Puente PharmD documented as of this encounter Procedures Procedure Name Priority Date/Time Associated Diagnosis Comments NM HEART PERFUSION SPECT STRESS AND REST Routine 01/13/2025 8:00 AM EDT documented in this encounter Results * NM heart perfusion SPECT stress and rest (01/13/2025 8:00 AM EDT) Anatomical Region Laterality Modality Body Nuclear Medicine 01/13/2025 8:00 AM EDT Narrative 01/15/2025 3:44 PM EDT ? [facility] ?[address] ?[place] [address] ?Nuclear Medicine Report ? Signed ? Patient: Land,Greg ?MR#: [id number] ?? 657 ? : 1960 ?Acct:[id number] ? Age/Sex: 64 / M ?ADM Date: 05/05/25 ? Loc: HO.CARD ? Attending Dr: Tan Mcwilliams MD ? Ordering Physician: Tan Mcwilliams MD ?? Date of Service: 01/13/25 ?? Procedure(s): NM mi perf SPECT rest ?? str ?? Accession Number(s): [id number] ? cc: Carolina Siddiqi MD; Tan Mcwilliams [...] DD/ 0800 ? TD/TT: 01/14/25 1430 ? Director Perioperative: ? Procedure Note Donsnehaleniter, Image - 01/15/2025 [place] [address] Nuclear Medicine Report Signed Patient: Rosita Land#: [id number] : 9Acct:[id number] Age/Sex: 64 / MADM Date: 01/13/25 Loc: [facility] Attending Dr: Tan Mcwilliams MD Ordering Physician: Tan Mcwilliams MD Date of Service: 01/13/25 Procedure(s): NM mi perf SPECT rest str Accession Number(s): [id number] cc: Carolina Siddiqi MD; Tan Mcwilliams MD [...] 01/15/25 1541 DD/ 0800 TD/TT: 01/14/25 1430 Director Perioperative: [facility] External Provider IMG NM PROCEDURES Final Result documented in this encounter Visit Diagnoses Not on filedocumented in this encounter Additional Health Concerns Assessment Noted Time PHQ-9 Depression Total Score: 10 02/25/ 024 10:07 AM EDT documented as of this encounter Care Teams Lean [employer] Sigma Black Belt Relationship Specialty Start Date End Date Carolina Siddiqi MD [address] [place] [address] PCP - General Internal Medicine 07/11/23 Jolie Thompson Community Health Worker Case Management 02/14/24 documented as of this encounter
--- OUTSIDE RECORDS SUMMARY | 2025-01-17 09:22 | XMS_ITS | Encounter Summary ---
Author Organization [employer] Address [address] [place] [address] Care Team Providers Care Antiquer Name Role Phone Carolina Siddiqi MD Primary Care Provide r Encounter Details Date Type Department Care Team (Late st Contact Info) Description 07/19/2024 Orders Only [facility] [address] [place] [address] Carolina Siddiqi MD [address] [place] [address] Social History Tobacco Use Types Packs/Day Years [...] 6.2( 9:25 AM EDT) No Ivana Puente, PharmD documented as of this encounter Visit Diagnoses Not on filedocumented in this encounter Additional Health Concerns Assessment Noted Time PHQ-9 Depression Total Score: 10 024 10:07 AM EDT documented as of this encounter Care Teams Antiquer Relationship Specialty Start Date End Date Carolina Siddiqi MD [address] [place] [id number] PCP - General Internal Medicine 07/11/23 Jolie Thompson Community Health Worker Case Management 02/14/24 documented as of this encounter
--- OUTSIDE RECORDS SUMMARY | 2025-01-17 09:22 | XMS_ITS | Data Portability ---
Author Organization [place] - [facility], , [facility] Address [address] [place] [address] Care Team Providers Care Grey Tender Name Role Phone ERIC HELLER General Surgeon Assessment No assessment recorded. Plan of Treatment Reminders Order Date Submit Date Provider Last Modified By Organization Details Last Modified Time Details Appointments None recorded. Lab hepatic function panel, serum - add on. 2015 016 [facility], [address] [place] [address], [id number], 6 04:08:03 culture, urine 2015 016 [facility], [address] [place] [address], [id number], 6 04:07:56 Referral diabetes management referral - taiwanese speaker with elevated blood sugar, likely needs injectables , please assist with next steps for blood glucose management. 2015 016 Not available 6 04:08:57 physical therapist referral - pt with right scapular pain and some right shoulder pain with movements. please assist with rehabilitat ion 2015 016 [facility], [address] [place] [address], [id number], 6 04:08:57 Procedures None recorded. Surgeries None recorded. Imaging None recorded. Medication Orders metformin ER 1,000 mg tablet,exte nded release 24hr (osmotic) 2015 016 [place] [address] ([facility]), [address] [place], [id number], 6 04:07:36 glipizide 10 mg tablet 2015 016 [place] [address] [facility] [address] [place], [id number], 6 04:06:44 metformin 1,000 mg tablet 2015 016 [place] [address] ([facility] [address] [place], [id number], 6 04:05:56 lisinopril 2.5 mg tablet 2015 016 [place] [address] ([facility] [address] [place], [id number], 6 04:06:25 gabapentin 300 mg capsule 2015 016 [place] [address] ([facility]), [address] [place], [id number], 6 04:06:27 Patient TargetsNo targets recorded. Patient Instructions Encounter Date Encounter Id Patient Instructions Last Modified By Organization Details Last Modified Time 05/03/2016 [id number] Spent 25 minutes of [id number] time, of which greater than 50% was in counseling. After a discussion of treatment options, which included consideration of best practices and patient preferences, the above treatment plan and objectives were adopted. fkim Not available 05/03/2016 23:18:31 07/04/2016 [id number] -Start testing blood sugar more often, at [...] Kyra Mauro, Family Medicine, Encounter Date: 06/22/2016 taiwanese speaker with elevate d blood sugar, likely needs injectables, please assist with next steps for blood glucose management. Referring Physician: Kyra Mauro, Family Medicine, Encounter Date: 06/22/2016 Results Created Date Observation Date Name Description Value Unit Range Abnormal Flag Note LastModifiedBy Organization Detail LastModifiedTime 04/12/20 16 04/12/2016 CBC w/ auto diff WBC 5.8 K/uL 3.4-11 .2 Not Available [address], [address], 04/12/2016 01:57:38 04/12/20 16 04/12/2016 CBC w/ auto diff RBC 4.71 M/uL 4.50-5 .50 Not Available [address], [address], 04/12/2016 01:57:38 04/12/20 16 04/12/2016 CBC w/ auto diff hemoglobin 13.8 g/dL 13.0-1 7.0 Not Available [address], [address], 04/12/2016 01:57:38 04/12/20 16 04/12/2016 CBC w/ auto diff hematocrit 38.1 % 40.0-5 1.0 low Not Available [address], [address], 04/12/2016 01:57:38 04/12/20 16 04/12/2016 CBC w/ auto diff MCV 80.9 fL 79.0-9 8.0 Not Available [address], [address], 04/12/2016 01:57:38 04/12/20 16 04/12/2016 CBC w/ auto diff MCH 29.3 pg 27.0-3 4.8 Not Available [address], [address], 04/12/2016 01:57:38 04/12/20 16 04/12/2016 CBC w/ auto diff MCHC 36.2 g/dL 31.5-3 6.0 high Not Available [address], [address], 04/12/2016 01:57:38 04/12/20 16 04/12/2016 CBC w/ auto diff RDW 12.9 % 10.8-1 4.6 Not Available [address], [address], 04/12/2016 01:57:38 04/12/20 16 04/12/2016 CBC w/ auto diff MPV 10.4 fL 9.4-12 .4 Not Available [address], [address], 04/12/2016 01:57:38 04/12/20 16 04/12/2016 CBC w/ auto diff platelet count 204 K/uL 130-40 0 Not Available [address], [address], 04/12/2016 01:57:38 04/12/20 16 04/12/2016 CBC w/ auto diff neutrophils 49.9 % 45.3-7 7.7 Not Available [address], [address], 04/12/2016 01:57:38 04/12/20 16 04/12/2016 CBC w/ auto diff lymphocytes 35.0 % 12.3-3 9.7 Not Available [address], [address], 04/12/2016 01:57:38 04/12/20 16 04/12/2016 CBC w/ auto diff monocytes 10.8 % 4.1-12 .8 Not Available [address], [address], 04/12/2016 01:57:38 04/12/20 16 04/12/2016 CBC w/ auto diff eosinophils 3.80 % 0.00-7 .20 Not Available [address], [address], 04/12/2016 01:57:38 04/12/20 16 04/12/2016 CBC w/ auto diff basophils 0.30 % 0.00-2 .80 Not Available [address], [address], 04/12/2016 01:57:38 04/12/20 16 04/12/2016 CBC w/ auto diff absolute neutrophil 2.9 K/uL 1.4-7. 7 Not Available [address], [address], 04/12/2016 01:57:38 04/12/2004/12/2016 CBC w/ auto diff absolute lymphocyte 2.0 K/uL 0.6-3. 2 Not Available [address], [address], 04/12/2016 01:57:38 04/12/2004/12/2016 CBC w/ auto diff absolute monocytes 0.6 K/uL 0.1-0. 6 Not Available [address], [address], 04/12/2016 01:57:38 04/12/2004/12/2016 CBC w/ auto diff absolute eosinophil 0.22 K/uL 0.01-0 .50 Not Available [address], [address]268, 04/12/2016 01:57:38 04/12/20 16 04/12/2016 CBC w/ auto diff absolute basophils 0.02 K/uL Not Available [address], [address], 04/12/2016 01:57:38 04/12/20 16 04/12/2016 CBC w/ auto diff immature granulocyte 0.20 % 0.00-0 .50 Not Available [address], [address], 04/12/2016 01:57:38 04/12/20 16 04/12/2016 CBC w/ auto diff absolute immature granulocyte 0.01 K/uL 0.00-0 .03 Not Available [address], [address], 04/12/2016 01:57:38 04/12/20 16 04/12/2016 tropo lenore T, serum troponin T <0.010 NG/mL 0.000- 0.030 Not Available [address], [address], 04/12/2016 02:21:34 04/12/20 16 04/12/2016 CMP, serum or plasm a glucose 289 mg/dL 70-99 high Not Available [address], [address], 04/12/2016 02:21:35 04/12/2004/12/2016 CMP, serum or plasm a BUN 10 mg/dL 6-19 Not Available [address], 82013, 04/12/2016 02:21:35 04/12/20 16 04/12/2016 CMP, serum or plasm a creatinine 0.9 mg/dL 0.5-1. 5 Not Available [address], [address], 04/12/2016 02:21:35 04/12/20 16 04/12/2016 CMP, serum [...] ages of 17 and 69. Not Available [address], [address], 04/12/2016 02:21:35 04/12/2004/12/2016 CMP, serum or plasm a sodium 137 mEq/L 133-14 6 Not Available [address], [address], 04/12/2016 02:21:35 04/12/2004/12/2016 CMP, serum or plasm a potassium 4.1 mEq/L 3.3-5. 1 Not Available [address], [address], 04/12/2016 02:21:35 04/12/2004/12/2016 CMP, serum or plasm a chloride 99 mEq/L 96-108 Not Available [address], [address], 04/12/2016 02:21:35 04/12/2004/12/2016 CMP, serum or plasm a CO2 26 mEq/L 21-35 Not Available [address], [address], 04/12/2016 02:21:35 04/12/2004/12/2016 CMP, serum or plasm a calcium 9.4 mg/dL 8.4-10 .3 Not Available [address], [address], 04/12/2016 02:21:35 04/12/2004/12/2016 CMP, serum or plasm a total bilirubin 0.6 mg/dL 0.0-1. 2 Not Available [address], [address], 04/12/2016 02:21:35 04/12/20 16 04/12/2016 CMP, serum or plasm a alkaline phosphatase 87 U/L 39-117 Not Available [address], [address], 04/12/2016 02:21:35 04/12/20 16 04/12/2016 CMP, serum or plasm a AST (SGOT) 13 U/L 0-37 Not Available [address], [address], 04/12/2016 02:21:35 04/12/20 16 04/12/2016 CMP, serum or plasm a ALT (SGPT) 19 U/L 0-40 Not Available [address], [address], 04/12/2016 02:21:35 04/12/2004/12/2016 CMP, serum or plasm a total protein 6.9 g/dL 6.5-8. 0 Not Available [address], [address], 04/12/2016 02:21:35 04/12/2004/12/2016 CMP, serum or plasm a albumin 4.0 g/dL 3.9-4. 8 Not Available [address], [address], 04/12/2016 02:21:35 04/12/2004/12/2016 CMP, serum or plasm a globulin 2.9 gm/dL 1.0-4. 8 Not Available [address], [address], 04/12/2016 02:21:35 04/12/2004/12/2016 CMP, serum or plasm a A/G ratio 1.4 gm/dL 1.0-4. 8 Not Available [address], [address], 04/12/2016 02:21:35 04/12/2004/12/2016 CMP, serum or plasm a anion gap 16 mEq/L 10-20 Not Available [facility] [address] [facility], [place], [address], 04/12/2016 02:21:35 05/31/20 16 05/31/2016 POC UA glu UA 1+ abnormal Not Available [address], [address], 05/31/2016 16:34:04 05/31/20 16 05/31/2016 POC UA clarity UA Slight ly Cloudy Not Available [address], [address], 05/31/2016 16:34:04 05/31/20 16 05/31/2016 POC UA uro UA 1.0000 Not Available [address], [address], 05/31/2016 16:34:04 05/31/20 16 05/31/2016 POC UA ket UA Negati ve Not Available [address], [address], 05/31/2016 16:34:04 05/31/20 16 05/31/2016 POC UA pro UA Trace abnormal Not Available [address], [address], 05/31/2016 16:34:04 05/31/20 16 05/31/2016 POC UA nit UA Negati ve Not Available [address], [address], 05/31/2016 16:34:04 05/31/20 16 05/31/2016 POC UA neida UA Negati ve Not Available [address], [address], 05/31/2016 16:34:04 05/31/20 16 05/31/2016 POC UA pH UA 6.0000 Not Available [address], [address], 05/31/2016 16:34:04 05/31/20 16 05/31/2016 POC UA SG UA >=1.03 00 Not Available [address], [address], 05/31/2016 16:34:04 05/31/20 16 05/31/2016 POC UA color UA Dark yellow Not Available [address], [address], 05/31/2016 16:34:04 05/31/20 16 05/31/2016 POC UA blo UA Negati ve Not Available [address], [address], 05/31/2016 16:34:04 05/31/20 16 05/31/2016 POC UA lisa UA Negati ve Not Available [address], [address], 05/31/2016 16:34:04 05/31/20 16 06/02/2016 cultu re, urine culture, urine, routine CULTU RE, URINE , ROUTI NE MICRO NUMBE R: [id number] TEST STATU S: FINAL SPECI MEN SOURC E: URINE SPECI MEN QUALI TY: ADEQU ATE RESUL T: No Growt h Not Available [facility] [address] [place] [address], [address], 06/02/2016 00:43:22 06/02/20 16 06/02/2016 BMP, serum or plasm a glucose 218 mg/dL 70-100 high Not Available [address], [address], 06/02/2016 11:19:48 06/02/20 16 06/02/2016 BMP, serum or plasm a BUN 8 mg/dL 7-18 Not Available [address], [address], 06/02/2016 11:19:48 06/02/20 16 06/02/2016 BMP, serum or plasm a creatinine 0.9 mg/dL 0.8-1. 3 Not Available [address], [address], 06/02/2016 11:19:48 06/02/20 16 06/02/2016 BMP, serum or plasm a B/C 8.9 ratio Not Available [address], [address], 06/02/2016 11:19:48 06/02/20 16 06/02/2016 BMP, serum or plasm a GFR -non 92.4 mL/mi n Recom marychuy d GFR by the Natio nal Kidne y Found ation >60 mL/mi n/1.7 3m2 - Mariam l <60 mL/mi n/1.7 3m2 - Chron ic Kidne y Disea se <15 mL/mi n/1.7 3m2 - Kidne y Failu re Not Available [address], [address], 06/02/2016 11:19:48 06/02/20 16 06/02/2016 BMP, serum or plasm a GFR - if 111.9 mL/mi n For Afric an Ameri can patie nts: Resul ts Multi plied by 1.21 Not Available [address], [address], 06/02/2016 11:19:48 06/02/20 16 06/02/2016 BMP, serum or plasm a sodium 144 mmol/ L 136-14 5 Not Available [address], [address], 06/02/2016 11:19:48 06/02/20 16 06/02/2016 BMP, serum or plasm a potassium 4.5 mmol/ L 3.5-5. 1 Not Available [address], [address]327, 06/02/2016 11:19:48 06/02/20 16 06/02/2016 BMP, serum or plasm a chloride 105 mmol/ L 96-107 Not Available [address], [address], 06/02/2016 11:19:48 06/02/20 16 06/02/2016 BMP, serum or plasm a anion gap 10.1 5.0-15 .0 Not Available [address], [address], 06/02/2016 11:19:48 06/02/20 16 06/02/2016 BMP, serum or plasm a CO2 29 mmol/ L 21-32 Not Available [address], [address]35[address], 06/02/2016 11:19:48 06/02/20 16 06/02/2016 BMP, serum or plasm a calcium 9.3 mg/dL 8.5-10 .3 Not Available [address], [address], 06/02/2016 11:19:48 06/02/20 16 06/02/2016 lipid panel , serum cholesterol 184 mg/dL <200 mg/dl Jonathon able 200-2 39 mg/dl Borde rline High >240 mg/dl High Not Available [address], [address], 06/02/2016 11:19:49 06/02/20 16 06/02/2016 lipid panel , serum triglyceride s 116 mg/dL <150 mg/dL Mariam l 150-1 99 mg/dL Borde rline High 200-4 99 mg/dL High >500 mg/dL Very High Not Available [address], [address], 06/02/2016 11:19:49 06/02/20 16 06/02/2016 lipid panel , serum direct HDL 45 mg/dL Not Available [address], [address], 06/02/2016 11:19:49 06/02/20 16 06/02/2016 LDL, calcu [...] r is not mahin antoine. Not Available [address], [address], 06/02/2016 11:19:49 06/02/20 16 06/02/2016 HbA1c (hemo globi n A1c), blood hemoglobin A1C 7.7 % 4.8-6. 0 high Goal: <7% in Patie nts with Diabe brisa Not Available [address], [address], 06/02/2016 11:26:54 06/02/20 16 06/02/2016 HbA1c (hemo globi n A1c), blood estimated average glucose 174.3 mg/dL Not Available [address], [address], 06/02/2016 11:26:54 06/02/20 16 06/02/2016 micro album in, urine microalbumin 19.7 mg/L 1.3-20 .0 Not Available [address], [address], 06/02/2016 12:41:00 06/02/20 16 06/02/2016 micro album in, urine creatinine urine 201.4 mg/dL 30.0-1 25.0 high Not Available [address], [address], 06/02/2016 12:41:00 06/02/20 16 06/02/2016 micro album in, urine microalb/cre at ratio 9.8 mg/g_ creat 0.0-29 .0 Not Available [address], [place], [address], 06/02/2016 12:41:00 03/08/20 17 03/08/2017 urina lysis , refle x cultu re color Yellow Not Available [address], [address], 03/08/2017 21:57:08 03/08/20 17 03/08/2017 urina lysis , refle x cultu re appearance Clear Not Available [address], [address], 03/08/2017 21:57:08 03/08/20 17 03/08/2017 urina lysis , refle x cultu re specific gravity <=1.00 5 1.005- 1.030 Not Available [address], [address]703, 03/08/2017 21:57:08 03/08/20 17 03/08/2017 urina lysis , refle x cultu re pH 6.0 5.0-7. 0 Not Available [address], [address], 03/08/2017 21:57:08 03/08/20 17 03/08/2017 urina lysis , refle x cultu re protein Negati ve negati ve Not Available [address], [address], 03/08/2017 21:57:08 03/08/20 17 03/08/2017 urina lysis , refle x cultu re glucose 3+ negati ve abnormal Not Available [address], 90171, 03/08/2017 21:57:08 03/08/20 17 03/08/2017 urina lysis , refle x cultu re ketones Negati ve negati ve Not Available [address], [address], 03/08/2017 21:57:08 03/08/20 17 03/08/2017 urina lysis , refle x cultu re bilirubin Negati ve negati ve Not Available [address], 84472, 03/08/2017 21:57:08 03/08/20 17 03/08/2017 urina lysis , refle x cultu re blood Negati ve negati ve Not Available [address], [address], 03/08/2017 21:57:08 03/08/20 17 03/08/2017 urina lysis , refle x cultu re nitrite Negati ve negati ve Not Available [address], [address], 03/08/2017 21:57:08 03/08/20 17 03/08/2017 urina lysis , refle x cultu re leukocyte esterase Negati ve negati ve Not Available [address], [address], 03/08/2017 21:57:08 03/08/20 17 03/08/2017 CBC w/ auto diff WBC 5.6 K/uL 3.4-11 .2 Not Available [address], [address], 03/08/2017 21:57:30 03/08/20 17 03/08/2017 CBC w/ auto diff RBC 4.86 M/uL 4.50-5 .50 Not Available [address], 72015, 03/08/2017 21:57:30 03/08/20 17 03/08/2017 CBC w/ auto diff hemoglobin 14.0 g/dL 13.0-1 7.0 Not Available [address], [address]82, 03/08/2017 21:57:30 03/08/20 17 03/08/2017 CBC w/ auto diff hematocrit 38.7 % 40.0-5 1.0 low Not Available [address], [address], 03/08/2017 21:57:30 03/08/20 17 03/08/2017 CBC w/ auto diff MCV 79.6 fL 79.0-9 8.0 Not Available [address], [address]604, 03/08/2017 21:57:30 03/08/20 17 03/08/2017 CBC w/ auto diff MCH 28.8 pg 27.0-3 4.8 Not Available [address], 16710, 03/08/2017 21:57:30 03/08/20 17 03/08/2017 CBC w/ auto diff MCHC 36.2 g/dL 31.5-3 6.0 high Not Available [address], 6[address], 03/08/2017 21:57:30 03/08/20 17 03/08/2017 CBC w/ auto diff RDW 12.9 % 10.8-1 4.6 Not Available [address], [address]197, 03/08/2017 21:57:30 03/08/20 17 03/08/2017 CBC w/ auto diff MPV 10.8 fL 9.4-12 .4 Not Available [address], [address], 03/08/2017 21:57:30 03/08/2003/08/2017 CBC w/ auto diff platelet count 207 K/uL 130-40 0 Not Available [address], 7[address], 03/08/2017 21:57:30 03/08/2003/08/2017 CBC w/ auto diff neutrophils 50.8 % 45.3-7 7.7 Not Available [address], 99587, 03/08/2017 21:57:30 03/08/20 17 03/08/2017 CBC w/ auto diff lymphocytes 32.9 % 12.3-3 9.7 Not Available [address], [address], 03/08/2017 21:57:30 03/08/20 17 03/08/2017 CBC w/ auto diff monocytes 13.2 % 4.1-12 .8 high Not Available [address], [address]153, 03/08/2017 21:57:30 03/08/20 17 03/08/2017 CBC w/ auto diff eosinophils 2.70 % 0.00-7 .20 Not Available [address], 59782, 03/08/2017 21:57:30 03/08/20 17 03/08/2017 CBC w/ auto diff basophils 0.20 % 0.00-2 .80 Not Available [address], 98340, 03/08/2017 21:57:30 03/08/20 17 03/08/2017 CBC w/ auto diff absolute neutrophil 2.9 K/uL 1.4-7. 7 Not Available [address], 43067, 03/08/2017 21:57:30 03/08/20 17 03/08/2017 CBC w/ auto diff absolute lymphocyte 1.8 K/uL 0.6-3. 2 Not Available [address], 23506, 03/08/2017 21:57:30 03/08/20 17 03/08/2017 CBC w/ auto diff absolute monocytes 0.7 K/uL 0.1-0. 6 high Not Available [address], 69955, 03/08/2017 21:57:30 03/08/20 17 03/08/2017 CBC w/ auto diff absolute eosinophil 0.15 K/uL 0.01-0 .50 Not Available [address], 48453, 03/08/2017 21:57:30 03/08/20 17 03/08/2017 CBC w/ auto diff absolute basophils 0.01 K/uL Not Available [address], 10772, 03/08/2017 21:57:30 03/08/20 17 03/08/2017 CBC w/ auto diff immature granulocyte 0.20 % 0.00-0 .50 Not Available [address], 08944, 03/08/2017 21:57:30 03/08/20 17 03/08/2017 CBC w/ auto diff absolute immature granulocyte 0.01 K/uL 0.00-0 .03 Not Available [address], 35011, 03/08/2017 21:57:30 03/08/2003/08/2017 CMP, serum or plasm a glucose 499 mg/dL 70-99 high Not Available [address], 15259, 03/08/2017 22:21:58 03/08/2003/08/2017 CMP, serum or plasm a BUN 6 mg/dL 6-19 Not Available [address], [address]12, 03/08/2017 22:21:58 03/08/2003/08/2017 CMP, serum or plasm a creatinine 1.1 mg/dL 0.5-1. 5 Not Available [address], 24010, 03/08/2017 22:21:58 03/08/2003/08/2017 CMP, serum or plasm [...] ages of 17 and 69. Not Available [address], 23874, 03/08/2017 22:21:58 03/08/20 17 03/08/2017 CMP, serum or plasm a sodium 136 mEq/L 133-14 6 Not Available [address], 36194, 03/08/2017 22:21:58 03/08/20 17 03/08/2017 CMP, serum or plasm a potassium 4.2 mEq/L 3.3-5. 2 Not Available [address], 56935, 03/08/2017 22:21:58 03/08/2003/08/2017 CMP, serum or plasm a chloride 98 mEq/L 96-108 Not Available [address], 60020, 03/08/2017 22:21:58 03/08/2003/08/2017 CMP, serum or plasm a CO2 27 mEq/L 21-35 Not Available [address], 83590, 03/08/2017 22:21:58 03/08/2003/08/2017 CMP, serum or plasm a calcium 9.4 mg/dL 8.4-10 .3 Not Available [address], 86679, 03/08/2017 22:21:58 03/08/2003/08/2017 CMP, serum or plasm a total bilirubin 0.4 mg/dL 0.0-1. 2 Not Available [address], 86406, 03/08/2017 22:21:58 03/08/2003/08/2017 CMP, serum or plasm a alkaline phosphatase 115 U/L 39-117 Not Available [address], [address], 03/08/2017 22:21:58 03/08/20 17 03/08/2017 CMP, serum or plasm a AST (SGOT) 11 U/L 0-37 Not Available [address], 82890, 03/08/2017 22:21:58 03/08/20 17 03/08/2017 CMP, serum or plasm a ALT (SGPT) 14 U/L 0-40 Not Available [address], 17750, 03/08/2017 22:21:58 03/08/20 17 03/08/2017 CMP, serum or plasm a total protein 7.4 g/dL 6.5-8. 0 Not Available [address], 15525, 03/08/2017 22:21:58 03/08/20 17 03/08/2017 CMP, serum or plasm a albumin 4.1 g/dL 3.9-4. 8 Not Available [address], 51866, 03/08/2017 22:21:58 03/08/20 17 03/08/2017 CMP, serum or plasm a globulin 3.3 gm/dL 1.0-4. 8 Not Available [address], 44403, 03/08/2017 22:21:58 03/08/20 17 03/08/2017 CMP, serum or plasm a A/G ratio 1.2 gm/dL 1.0-4. 8 Not Available [address], 28796, 03/08/2017 22:21:58 03/08/20 17 03/08/2017 CMP, serum or plasm a anion gap 15 mEq/L 10-20 Not Available [address], 29055, 03/08/2017 22:21:58 03/08/20 17 03/08/2017 C react alfreda prote in, QN, serum or plasm a C-reactive protein 0.24 mg/dL 0.00-0 .50 Not Available [address], 22777, 03/08/2017 22:21:58 03/08/20 17 03/08/2017 lipas e, serum or plasm a lipase 37 U/L 16-63 Not Available [address], 07341, 03/08/2017 22:21:59 10/16/19 18 10/16/2017 urina lysis , refle x cultu re color Yellow yellow Not Available [facility] [address] [place] [address], [address], 10/16/2017 15:03:07 10/16/19 18 10/16/2017 urina lysis , refle x cultu re clarity Clear Not Available [facility] [address] [place] [address], [address], 10/16/2017 15:03:07 10/16/19 18 10/16/2017 urina lysis , refle x cultu re glucose 3+ negati ve abnormal Not Available [facility] [address] [place] [address], [address]98, 10/16/2017 15:03:07 10/16/19 18 10/16/2017 urina lysis , refle x cultu re bili Negati ve negati ve Not Available [facility] [address] [place] [address], [address], 10/16/2017 15:03:07 10/16/19 18 10/16/2017 urina lysis , refle x cultu re ketones Negati ve negati ve Not Available [facility] [address] [place] [address], 90[address], 10/16/2017 15:03:07 10/16/19 18 10/16/2017 urina lysis , refle x cultu re specific gravity 1.010 1.005- 1.030 Not Available [facility] [address] [place], [address], 10/16/2017 15:03:07 10/16/19 18 10/16/2017 urina lysis , refle x cultu re blood Negati ve negati ve Not Available [facility] [address] [place], [address], 10/16/2017 15:03:07 10/16/19 18 10/16/2017 urina lysis , refle x cultu re pH 5.5 5.0-8. 0 Not Available [facility] [address] [place], [address], 10/16/2017 15:03:07 10/16/19 18 10/16/2017 urina lysis , refle x cultu re protein Negati ve negati ve Not Available [facility] [address] [place], [address], 10/16/2017 15:03:07 10/16/19 18 10/16/2017 urina lysis , refle x cultu re nitrite Negati ve negati ve Not Available [facility] [address] [place], [address], 10/16/2017 15:03:07 10/16/19 18 10/16/2017 urina lysis , refle x cultu re leukocyte esterase, ur Negati ve negati ve Not Available [facility] [address] [place], [address], 10/16/2017 15:03:07 10/16/19 18 10/16/2017 CBC w/ auto diff WBC 5.58 K/uL 3.40-1 1.20 Not Available [facility] [address] [place], [address], 10/16/2017 16:30:11 10/16/19 18 10/16/2017 CBC w/ auto diff RBC 4.75 M/uL 4.50-5 .50 Not Available [facility] [address] [place], [address], 10/16/2017 16:30:11 10/16/19 18 10/16/2017 CBC w/ auto diff HGB 13.7 g/dL 13.0-1 7.0 Not Available [facility] [address] [place], [address], 10/16/2017 16:30:11 10/16/19 18 10/16/2017 CBC w/ auto diff HCT 39.0 % 40.0-5 1.0 low Not Available [facility] [address] [place] [address], [id number], 10/16/2017 16:30:11 10/16/19 18 10/16/2017 CBC w/ auto diff plt 218 K/uL 130-40 0 Not Available [facility] (Outpatient) [address] [place] [address], [id number], 10/16/2017 16:30:11 10/16/19 18 10/16/2017 CBC w/ auto diff MCV 82.1 fL 79.0-9 8.0 Not Available [facility] (Outpatient) [address] [place] [address], [id number], 10/16/2017 16:30:11 10/16/19 18 10/16/2017 CBC w/ auto diff MCH 28.8 pg 27.0-3 4.8 Not Available [facility] (Outpatient) [address] [place] [address], [id number], 10/16/2017 16:30:11 10/16/19 18 10/16/2017 CBC w/ auto diff MCHC 35.1 g/dL 31.5-3 6.0 Not Available [facility] (Outpatient) [address] [place], [id number], 10/16/2017 16:30:11 10/16/19 18 10/16/2017 CBC w/ auto diff RDW 12.8 % 10.8-1 4.6 Not Available [facility] [facility] (Outpatient) [address] [place] [address], [address], 10/16/2017 16:30:11 10/16/19 18 10/16/2017 CBC w/ auto diff MPV 10.9 fL 9.4-12 .4 Not Available [facility] (Outpatient) [address] [place] [address], [address], 10/16/2017 16:30:11 10/16/19 18 10/16/2017 CBC w/ auto diff NRBC 0.00 /100_ WBCs Not Available [facility] (Out[facility]) [address] [place] [address], [address], 10/16/2017 16:30:11 10/16/19 18 10/16/2017 CBC w/ auto diff absolute NRBC 0.00 K/uL Not Available [facility] (Outpatient) [address] [place] [address], [address], 10/16/2017 16:30:11 10/16/19 18 10/16/2017 CBC w/ auto diff diff method Auto Not Available [facility] (Out[facility]) [address] [place], [address], 10/16/2017 16:30:11 10/16/19 18 10/16/2017 CBC w/ auto diff neuts 54.2 % 45.30- 77.70 Not Available [facility] (Out[facility]) [address] [place] [address], [address], 10/16/2017 16:30:11 10/16/19 18 10/16/2017 CBC w/ auto diff lymphs 32.1 % 12.30- 39.70 Not Available [facility] (Outpatient) [address] [place], [address], 10/16/2017 16:30:11 10/16/19 18 10/16/2017 CBC w/ auto diff monos 10.4 % 4.10-1 2.80 Not Available [facility] ([facility]) [address] [place], [address], 10/16/2017 16:30:11 10/16/19 18 10/16/2017 CBC w/ auto diff eos 2.7 % 0-7.2 Not Available [facility] ([facility]) [address] [place] [address], [address], 10/16/2017 16:30:11 10/16/19 18 10/16/2017 CBC w/ auto diff basos 0.4 % 0-2.80 Not Available [facility] [address] [place], [address], 10/16/2017 16:30:11 10/16/19 18 10/16/2017 CBC w/ auto diff granulocytes , immature (%) 0.2 % 0.0-0. 9 Not Available [facility] (Out[facility] [address] [place], [address], 10/16/2017 16:30:11 10/16/19 18 10/16/2017 CBC w/ auto diff absolute neuts 3.03 K/uL 1.40-7 .70 Not Available [facility] [address] [place], [address], 10/16/2017 16:30:11 10/16/19 18 10/16/2017 CBC w/ auto diff absolute lymphs 1.79 K/uL 0.60-3 .20 Not Available [facility] (Out[facility]) [address] [place], [address], 10/16/2017 16:30:11 10/16/19 18 10/16/2017 CBC w/ auto diff absolute monos 0.58 K/uL 0.11-0 .59 Not Available [facility]Out[facility] [address] [place], [address], 10/16/2017 16:30:11 10/16/19 18 10/16/2017 CBC w/ auto diff absolute eos 0.15 K/uL 0.01-0 .50 Not Available [facility] [address] [place], [address], 10/16/2017 16:30:11 10/16/19 18 10/16/2017 CBC w/ auto diff absolute basos 0.02 K/uL 0.00-0 .08 Not Available [facility] [address] [place], [address], 10/16/2017 16:30:11 10/16/19 18 10/16/2017 CBC w/ auto diff granulocytes , immature 0.01 K/uL 0.00-0 .05 Not Available [facility] [address] [place], [address], 10/16/2017 16:30:11 10/16/19 18 10/16/2017 BMP, blood sodium 142 mmol/ L 133-14 6 Not Available [facility] [address] [place], [address], 10/16/2017 16:53:22 10/16/19 18 10/16/2017 BMP, blood chloride 105 mmol/ L 96-108 Not Available [facility] [address] [place], [address], 10/16/2017 16:53:22 10/16/19 18 10/16/2017 BMP, blood potassium 4.7 mmol/ L 3.3-5. 1 Not Available [facility] [address] [place], [address], 10/16/2017 16:53:22 10/16/19 18 10/16/2017 BMP, blood CO2 29 mmol/ L 21-35 Not Available [facility] [address] [place] [address], [address], 10/16/2017 16:53:22 10/16/19 18 10/16/2017 BMP, blood BUN 6 mg/dL 6-19 Not Available [facility]) [address] [place] [address], [address], 10/16/2017 16:53:22 10/16/19 18 10/16/2017 BMP, blood creatinine 0.90 mg/dL 0.5-1. 5 Not Available [facility] ([facility]) [address] [place] [address], [address], 10/16/2017 16:53:22 10/16/19 18 10/16/2017 BMP, blood glucose 229 mg/dL 70-99 high Not Available [facility] (Out[facility]) [address] [place] [address], [address], 10/16/2017 16:53:22 10/16/19 18 10/16/2017 BMP, blood calcium 9.6 mg/dL 8.4-10 .3 Not Available [facility]) [address] [place] [address], [address], 10/16/2017 16:53:22 10/16/19 18 10/16/2017 BMP, blood eGFR >60 mL/mi n/1.7 3m2 >60 Abnor mal if <60. If patie nt is Afric an-Am kwabena n, multi ply the resul t by 1.21. Not Available [facility] (Out[facility]) [address] [place] [address], [address], 10/16/2017 16:53:22 10/16/19 18 10/16/2017 BMP, blood anion gap 13 mmol/ L 10-20 Not Available [facility]) [address] [place] [address], [address], 10/16/2017 16:53:22 10/16/19 18 10/16/2017 lipas e, serum or plasm a lipase 25 U/L 16-63 Not Available [facility] ([facility] [address] [place], [address], 10/16/2017 16:53:24 10/16/19 18 10/16/2017 lfts (hepa tic panel ) alkaline phosphatase 98 U/L 39-117 Not Available [facility] (Outpatient) [address] [place], [address], 10/16/2017 16:53:26 10/16/19 18 10/16/2017 lfts (hepa tic panel ) total bilirubin 0.5 mg/dL 0-1.2 Not Available [facility] [address] [place] [address], [address], 10/16/2017 16:53:26 10/16/19 18 10/16/2017 lfts (hepa tic panel ) direct bilirubin <0.2 mg/dL 0-0.3 Not Available [facility] ([facility] [address] [place], [address], 10/16/2017 16:53:26 10/16/19 18 10/16/2017 lfts (hepa tic panel ) bilirubin (indirect) NOT CALCUL ATED mg/dL 0-1.5 Not Available [facility] ([facility]) [address] [place] [address], [address], 10/16/2017 16:53:26 10/16/19 18 10/16/2017 lfts (hepa tic panel ) AST 14 U/L 0-37 Not Available [facility] ([facility]) [address] [place] [address], [address], 10/16/2017 16:53:26 10/16/19 18 10/16/2017 lfts (hepa tic panel ) ALT 16 U/L 0-40 Not Available [facility]) [address] [place] [address], [address], 10/16/2017 16:53:26 10/16/19 18 10/16/2017 lfts (hepa tic panel ) total protein 7.4 g/dL 6.5-8. 0 Not Available [facility] [address] [place], [address], 10/16/2017 16:53:26 10/16/19 18 10/16/2017 lfts (hepa tic panel ) albumin 4.3 g/dL 3.9-4. 8 Not Available [facility] ([facility]) [address] [place], [address], 10/16/2017 16:53:26 10/16/19 18 10/16/2017 lfts (hepa tic panel ) globulin 3.1 g/dL 1-4.8 Not Available [facility] ([facility]) [address] [place], [address], 10/16/2017 16:53:26 10/16/19 18 10/16/2017 lfts (hepa tic panel ) A/G ratio 1.39 ratio 1.00-4 .80 Not Available [facility] [address] [place], [address], 10/16/2017 16:53:26 04/12/20 16 04/12/2016 XR, chest , 2 view No observ ation record ed. [email or web address] [facility] [address] [place], [address], 04/18/2016 07:51:26 06/16/20 16 04/12/2016 chest 2 [...] DORIAN MON MD 2015 06:35 AM mmastroberti [facility] [address] [facility], [place], [address], 06/17/2016 10:45:13 03/09/20 17 03/09/2017 CT, abdom [...] Initia l report render ed by [facility]. POS - CDHRAD BOARDW S7 Electr onical ly Signed by: MO CERON on 017 10:12 AM Techno logist : NINI MONICA KEVIN Transc ribed by: Yuli allen, PS360 Result s 2016 10:04 AM Electr onical ly Signed By: MO CERON MD 2016 10:12 AM [facility] [address] [place] [address], [address], 03/13/2017 13:11:35 10/17/19 18 10/16/2017 xr abdom [...] P.S. LQP X 7 MONTHS ROBLESSindhu ISAAC [facility] [address] [place] [address], [address], 10/17/2017 08:11:32 Result Notes None recorded. Problems Name Problem SNOMED Code Status Onset Date Resolution Date Notes Provider Name and Address Organization Details Recorded Time Essential hypertensio n 74371217 Completed 01/20/2016 Robles Isaac MD [address] [place], [place] [address], [address], [facility] 6 23:10:47 Diabetes mellitus 69435209 Completed 01/20/2016 Robles Isaac MD [address] [place], [place] [address], [address], [facility] 6 23:10:50 Skin lesion 05672462 Completed 01/20/2016 Robles hendrickson MD [address] [place], [place] [address], [address], [facility] 6 23:10:54 Benign essential hypertensio n 9869310 Active Robles Isaac MD [address] [place], [place] [address], [address], [facility] 6 08:53:56 Mixed hyperlipide muna 608577070 Active Robles Isaac MD [address] [place], [place] [address], [address], [facility] 6 08:53:56 Uncontrolle d type 2 diabetes mellitus 053050779 Active Robles Isaac MD [address] [place], [place] [address], [address], [facility] 6 08:53:56 Problem Notes None recorded. Procedures Surgical History Date Name Laterality Status Provider Name and Address Organization Details Recorded Time 6 POC Urinalysis Testing completed Yocasta Brownlee [facility] 05/31/2016 16:24:56 4 Excision completed Robles Isaac MD [address] [place] [address], [address], [facility] 10/15/2013 11:15:56 Imaging Results Imaging Date Name Status LastModified by Organiz ation Details LastModified Time 04/12/2016 XR, chest, 2 view completed [facility] [address] [facility], [place], [address], 04/18/2016 07:51:26 04/12/2016 chest 2 V completed mmastroberti [facility] [address] [place], [address], 06/17/2016 10:45:13 03/09/2017 CT, abdomen + pelvis, w/o contrast completed [facility] [address] [place], [address], 03/13/2017 13:11:35 10/16/2017 xr abdomen series supine with decubitis/ere ct and single view chest completed [facility] [address] [place], [address], 10/17/2017 08:11:32 Procedure Notes None recorded. Medical [...] Available Not Available No t Available [employer] [place] Lite kit active Not Available Not Available Not Available Vitals Date Recorded Body height Body weight Body mass index (BMI) Systolic blood pressure Diastolic blood pressure Provider Name and Address Organization Details Last Updated DateTime 05/03/2016 158.115 cm 92544.45 g 27.4 kg/m2 144 mm[Hg] 74 mm[Hg] Alessandra Orellana MA [facility] 6 08:30:54 Date Recorded Body height Heart rate Oxygen saturation Oxygen saturation in Arterial blood by Pulse oximetry Systolic blood pressure Diastolic blood pressure Provider Name and Address Organization Details Last Updated DateTime 6 158.115 cm 85 /min 98 % 98 % 142 mm[Hg] 88 mm[Hg] [facility] 6 16:06:44 Date Recorded Body height Systolic blood pressure Diastolic blood pressure Provider Name and Address Organization Details Last Updated DateTime 06/06/2016 158.115 cm 142 mm[Hg] 72 mm[Hg] [facility] 06/06/2016 09:58:35 Date Recorded Body height Body weight Body mass index (BMI) Systolic blood pressure Diastolic blood pressure Provider Name and Address Organization Details Last Updated DateTime 06/22/2016 158.115 cm 53618.26 g 27.3 kg/m2 150 mm[Hg] 80 mm[Hg] [facility] 6 11:20:12 Social History Question Answer Notes LastModified by Organizat ion Details LastModified Time Tobacco Smoking Status Never Smoker Alessandra Orellana MA [facility] 10/02/2013 10:35:52 What Is Your Level [...] 10/02/2013 What Is Your Occupation? Works At [employer] fkim Information not available 10/02/2013 How Many [...] Recorded Time Tdap 4 completed Not Available [facility] 09/28/2019 02:16:08 Influenza, split virus, quadrivalent, PF 4 completed Not Available [facility] 09/28/2019 02:18:56 pneumococcal polysaccharide PPV23 4 completed Not Available [facility] 09/28/2019 02:14:36 Influenza, split virus, trivalent, PF 4 completed Not Available [facility] 09/28/2019 02:19:21 Influenza, split virus, quadrivalent, PF 6 completed Not Available [facility] 09/28/2019 02:33:00 Past Encounters Encounter ID Performer Location Encounter Start Date Encounter Closed Date Diagnosis/Indication Diagnosis SNOMED-CT Code Diagnosis ICD10 Code Diagnosis Note [id number] Robles Isaac MD , [facility], [address] [place] [address] 10/02/2013 10:13:34 10/02/2013 11:26:17 Essential hypertension 46036618 Elevated BP. Previously not engaged in care. Low salt diet recommende d. Start Chlorthali done. Will add SHUN-I once renal function establishe d. Follow up in 1 week. Advised to get fasting labwork tomorrow. Diabetes mellitus 53756603 Patient with new-onset diabetes. Symptoms of polydipsia [...] week. Screening for malignant neoplasm of colon 393807566 Skin lesion 63394414 Inv olving the left posterior upper arm. Likely epidermoid cyst. Schedule for an excision. No clinical evidence of cellulitis or acute abscess. Influenza vaccine needed [id number] 106 Administra tion of diphtheria, pertussis, and tetanus vaccine [id number] Robles Isaac MD , [facility], [address] [place] [address] 10/09/2013 09:59:46 10/09/2013 13:05:30 Essential hypertension 93254447 Previously not engaged in care. Tolerating Chlorthali done. BP improved. Low salt diet recommende d. Will add Lisinopril 2.5mg po daily. Repeat BMP at his next visit. Diabetes mellitus 80036562 Patient with new-onset diabetes. Symptoms of polydipsia [...] start SHUN-I. Follow up in 1 week. [id number] Robles Isaac MD , [facility], [address] [place] [address] 10/15/2013 10:06:38 10/15/2013 13:08:04 Diabetes mellitus 41585618 Patient with new-onset diabetes. Symptoms of polydipsia [...] in 1 week. Epidermoid cyst of skin 752262652 Non-infect ed, left upper arm cyst removed [...] week for wound check and suture removal. [id number] Robles Isaac MD , [facility], [address] [place] [address] 10/23/2013 14:35:31 10/23/2013 15:12:07 Chest pain 97874764 His symptoms of left-sided chest pain and [...] s for UC/ER use discussed. Skin lesion 64594734 Inv olving the left posterior upper arm. Sutures removed. Hypertroph ic scar and contact dermatitis noted. Purulent discharge expressed with suture removal. Wound care discussed. Gauze applied. Follow up early next week for a follow up. Consider General Surgery referral if not healed completely . [id number] Robles Isaac MD , [facility], [address] [place] [address] 10/30/2013 08:21:52 10/30/2013 08:54:16 Essential hypertension 84050984 Previously was not engaged in care. Tolerating Chlorthali done and Lisinopril . BP markedly improved. Low salt diet recommende d. Check BMP at his next visit. Diabetes mellitus 76852408 Patient with new-onset diabetes. Symptoms of polydipsia [...] ratio. SHUN-I started previously . Skin lesion 56795532 Inv olving the left posterior upper arm. Sutures removed last week. Hypertroph ic scar and contact dermatitis noted at the time. Now healing well. No fluctuance . Consider General Surgery referral if not healed completely . Chest pain 85401296 His symptoms of left-sided chest , SOB [...] symptoms. Indication s for UC/ER use discussed. [id number] Robles Isaac MD , [facility], [address] [place] [address] 11/27/2013 09:03:19 11/27/2013 09:47:48 Diabetes mellitus 28222372 Patient with recent diagnosis of diabetes. Symptoms [...] elevated MA/Cr ratio. SHUN-I started. Essential hypertension 25022068 Previously was not engaged in care. Tolerating Chlorthali done. Erroneousl y stopped Lisinopril . Will resume. No intoleranc e issues. BP markedly improved. Low salt diet recommende d. Epidermoid cyst of skin 000959991 Non-infect ed, left upper arm cyst removed at his previous visit due to persistent pain. Patient with residual scarring. No current evidence of infection. [id number] Robles Isaac MD , [facility], [address] [place] [address] 02/19/2014 11:04:44 02/19/2014 12:04:40 Adult health examination 320635427 See Risk Assessment and Lifestyle Change Counseling section above. Tdap vaccine UTD. PNA vaccine administer ed today. Home/vehic le/sexual safety reviewed. Not sexually active. Colonoscop y scheduled 03/2014. Counseling 961637327 Benign ess ential hypertension 7353438 Previously was not engaged in care. Tolerating Chlorthali done and Lisinopril . BP markedly improved. Low salt diet recommende d. Mixed hyperlipidemia 996272429 Fair FLP with LDL 92. Would like better control given his underlying diabetes, but also struggles with polypharma cy. Low fat/choles terol diet and exercise recommende d. Diarrhea 49946075 Patien t with chronic diarrhea intermitte ntly. Recently evaluated by Dr. Burrows (GI). Scheduled to have a colonoscop y in 03/2014. Recent IgA mildly positive (other celiac markers negative). No BRBPR/boris na. No abdominal pain. Uncontroll ed type 2 diabetes mellitus 586312211 States home BS 140-200. Improved Hgb A1c [...] hydration discussed. Administra tion of pneumococcal vaccine [id number] Robles Isaac MD , [facility], [address] [place] [address] 04/09/2014 07:59:46 04/09/2014 08:49:22 Uncontrolled type 2 diabetes mellitus 437481260 States home BS 120-150. Overall improved Hgb [...] discussed. Ample oral hydration discussed. Essential hypertension 31381392 Previously was not engaged in care. Tolerating Chlorthali done. Erroneousl y stopped Lisinopril . Will resume. No intoleranc e issues. BP markedly improved. Will titrate up Lisinopril as needed. Low salt diet recommende d. [id number] Robles Isaac MD , [facility], [address] [place] [address] 07/07/2014 07:47:01 07/07/2014 08:23:26 Mixed hyperlipidemia 037786458 Patient with LDL of 150 (06/2014). However, his 10-year risk of NV is 7%. New AHA/ACC guideline discussed. Advised on low fat/choles terol diet and exercise. Influenza vaccine needed [id number] 106 Uncontroll ed type 2 diabetes mellitus 221928492 States home BS 100-160. Overall improved Hgb [...] discussed. Ample oral hydration discussed. Essential hypertension 28238803 Previously was not engaged in care. Tolerating Chlorthali done and Lisinopril . No intoleranc e issues. BP markedly improved. Low salt diet recommende d. [id number] Robles Isaac MD , [facility], [address] [place] [address] 11/25/2015 08:22:18 11/25/2015 09:20:28 Benign essential hypertension 0056133 I10 Blood pressure elevated. Lost insurance in 2013. Has been off his medication s. No CP/SOB/CUEVAS . Recommende d to continue to work on diet, exercise, and lowering salt intake. Will resume Lisinopril (but will hold off on Chlorthali done). Check BMP. Mixed hyperlipidemia 267 183943 E78.2 Patient with previous LDL of 150 (06/2014). However, his 10-year risk of NV is 7%. New AHA/ACC guideline discussed. Advised on low fat/choles terol diet and exercise. Uncontroll ed type 2 diabetes mellitus 264222502 E11.65 Out of care for over 1 [...] oral hydration discussed. Unexplaine d weight loss 417878263 R63.4 Patient with 15 lbs weight loss since his last visit. Denies bleeding. Out of medication for over 1 year. Will continue to monitor. [id number] Robles Isaac MD , [facility], [address] [place] [address] 12/14/2015 10:17:02 12/15/2015 08:21:49 Benign essential hypertension 3178528 I10 Blood pressure improved. Lost insurance in 2013. Was off his medication s. No CP/SOB/CUEVAS . Recommende d to continue to work on diet, exercise, and lowering salt intake. Recently started Lisinopril (but will hold off on Chlorthali done). Mixed hyperlipidemia 267 289408 E78.2 Patient with previous LDL of 150 (06/2014). However, his 10-year risk of NV is 7%. New AHA/ACC guideline discussed. Advised on low fat/choles terol diet and exercise. Uncontroll ed type 2 diabetes mellitus 902439290 E11.65 Out of care for over 1 [...] medication s discussed. Ample oral hydration discussed. [id number] Robles Isaac MD , [facility], [address] [place] [address] 01/11/2016 08:21:26 01/11/2016 08:52:49 Benign essential hypertension 8723208 I10 Blood pressure elevated, but previously well [...] if persistent ly elevated. Mixed hyperlipidemia 267 176676 E78.2 Patient with previous LDL of 150 (06/2014). However, his 10-year risk of NV is 7%. New AHA/ACC guideline discussed. Advised on low fat/choles terol diet and exercise. Uncontroll ed type 2 diabetes mellitus 051106616 E11.65 Out of care for over 1 [...] hydration discussed. Right uppe r quadrant pain 213450697 R10.11 Patient with 1-week duration of RUQ abdominal pain. No clinical evidence of acute abdomen. Will check US to further evaluate. Advised to avoid high fat diet. Indication s for UC/ER use reviewed. [id number] Robles Isaac MD , [facility], [address] [place] [address] 01/20/2016 08:45:30 01/20/2016 09:28:43 Cholelithiasis without obstruction 86106255 K80.20 Patient with 1-week duration of RUQ abdominal pain. No clinical evidence of acute abdomen. Abdominal US revealed gallstones . Will refer to General Surgery for further evaluation . Advised to avoid high fat diet. Indication s for UC/ER use reviewed. Benign ess ential hypertension 8155167 I10 Blood pressure improved overall. Lost insurance in 2013. Was off his medication s. No CP/SOB/CUEVAS . Recommende d to continue to work on diet, exercise, and lowering salt intake. Recently started Lisinopril (but will hold off on Chlorthali done). Mixed hyperlipidemia 267 663044 E78.2 Patient with previous LDL of 150 (06/2014). However, his calculated 10-year risk of NV is 7%. New AHA/ACC guideline discussed. Advised on low fat/choles terol diet and exercise. Uncontroll ed type 2 diabetes mellitus 338030735 E11.65 Out of care for over 1 [...] medication s discussed. Ample oral hydration discussed. [id number] Robles Isaac MD , [facility], [address] [place] [address] 05/03/2016 08:21:49 05/03/2016 08:48:10 Neuropathy 598267700 G62.9 Patient reports bilateral inner thigh numbness and tingling. No weakness. No urine incontinen ce symptoms. Trial of Gabapentin discussed. Uncontroll ed type 2 diabetes mellitus 387765704 E11.65 Recently increased the Glipizide dose. Previously [...] oral hydration discussed. Benign ess ential hypertension 0811084 I10 Blood pressure improved overall. Lost insurance in 2013. Was off his medication s. No CP/SOB/CUEVAS . Recommende d to continue to work on diet, exercise, and lowering salt intake. Recently started Lisinopril (but will hold off on Chlorthali done). [id number] PRABHU Mauricio-CALEB , [facility], [address] [place] [address] 05/31/2016 15:55:20 05/31/2016 16:50:42 Active or passive immunization 427448469 Z23 Diarrhea 19192573 R19.7 possibly secondary to surgery, poor historian, symptoms worsening in last 2 weeks. labs as ordered below. advised follow up within 4-7 days. Dysuria 44109610 R30.0 UA labs consistent with poorly controlled DM. culture pending. follow up with PCP, if symptoms worsen be seen. Uncontroll ed type 2 diabetes mellitus 163661195 E11.65 reviewed importance of blood sugar control. pt to follow up with pcp. [id number] BHARAT Mauricio , [facility], [address] [place] [address] 06/06/2016 09:54:11 06/06/2016 10:24:25 Diarrhea 98178033 R19.7 possible s/e of metformin, change ir to ER, follow up in 2 weeks. Uncontroll ed type 2 diabetes mellitus [id number] E11.65 possible metformin contributi ng to diarrhea, change to ER. monitor diarrhea, follow up in 2 weeks for disease management re diarrhea and blood sugar. Pain of sh oulder region [id number] M25.512 subscapula r pain consistent with muscle strain. continue with supportive measures. [id number] BHARAT Mauricio , [facility], OFFICE [address] [place] [address] 06/22/2016 11:10:57 06/24/2016 09:39:47 Shoulder joint pain [id number] M25.519 right sub scapular muscle spasm, pt notes weakness in right shoulder suggestive of rotator cuff involvemen t, but no focal weakness on exam , muscle tension noted. refer for PT, apply heat, follow up for failure to resolve. Diabetes mellitus [id number] E11.9 fasting sugar elevated, referral to DNE consider victoza or insulin. [id number] Julieta Barrett RN, BSN, [facility] DM Education , [facility] [address] [place] [address] 07/04/2016 07:51:58 07/08/2016 09:50:09 Uncontrolled type 2 diabetes mellitus [id number] E11.65 Met with Greg today for Type 2 diabetes, kindly referred by Kyra Mauro NP. Greg is accompanie d by his daughter, who helps to translate for him. He is Hungarian speaking. His daughter reports she lives with [...] Delong Member ID Guarantor Name 05/03/2016 1 [facility] - DIRECT CONNECTORCARE TYPE II (HMO) [facility] [id number] 1 [id number] 001 [facility] 05/31/2016 1 [facility] - DIRECT CONNECTORCARE TYPE II (HMO) [facility] [id number] 1 [id number] 001 [facility] 06/06/2016 1 [facility] - DIRECT CONNECTORCARE TYPE II (HMO) [facility] [id number] 1 [id number] 001 [facility] 06/22/2016 1 [facility] - DIRECT CONNECTORCARE TYPE II (HMO) [facility] [id number] 1 [id number] 001 [facility] 07/04/2016 1 [facility] - DIRECT CONNECTORCARE TYPE II (HMO) [facility] [id number] 1 [id number] 001 [facility] Notes Date Note Type Note Provider [...] undergone laparoscopic cholecystectomy in 02/2016. Went to [facility] ER 3 weeks ago due to CP. His CXR, CBC, Troponin and CMP all within normal, except for elevated BS. No recurring symptoms since. Robles Isaac MD [address] [place] [address], [phone], [facility] 05/03/2016 23:18:53 05/31/2016 text/html pt presents [...] procedure. diarrhea worse. no fever. Kyra Mauro [address], [phone], [facility] 06/05/2016 16:26:27 06/06/2016 text/html back pain, [...] diarrhea may be related to metformin. JUAN Mauricio[address], [phone], [facility] 06/06/2016 10:22:13 06/22/2016 text/html pt has pain in b ack to front around shoulder pain is interfering with ability to sleep.pain lasts all day.feels as if the shoulder falls asleep and drops. Kyra Mauro [address], [phone], [facility] 06/22/2016 11:34:50 07/04/2016 text/html Diabetes Self Management History & IntakeReported bypatient.Patient HistoryPatient chief complaint today:Needs help interpreting blood sugars; has a family history of diabetes; Completed Diabetes Self-Assessment Form received, reviewed and sent for chart upload. 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 Intake Form) Julieta Barrett RN, BSN, [address], [phone], [facility] 07/04/2016 16:03:29
== END 2025-01-17 09:08 | disposition home or self-care (01) ==
LOC: HO.XRAY 09:07
PROVIDERS: PCP Internal Medicine; Visit Provider Nurse Practitioner Family
DX: Z13.89 Encounter for screening for other disorder (principal)

== ENCOUNTER 2025-01-20 09:00 | Outpatient (AMB) | payer OTHER, SELFPAY ==
--- NOTE | 2025-01-20 09:03 | MHC.OFFVIS ---
Vital Signs 01/20/25 09:05 Height 5 ft 3 in Weight 140 lb BMI 24.8 BP 142/64 H Blood Pressure Location Lt brachial Position Sitting Pulse 74 Pulse Source Pulse Oximeter Pulse Oximetry (%) 100 Oxygen Delivery Method Room Air Intake Visit Reasons: 3 mo Intake Note: ESTABLISHED PATIENT for GERD mgmt. Discuss EGD/[place]. US done Chief Complaint; C.O. sharp, umbilical region pain. Pt denies any additional sx or concerns at this time. Pain seems to be intermittent per pt. Control Systems Designer Required: Yes Control Systems Designer Services: Control Systems Designer Offered & Declined Accompanied by: Daughter Allergies No Known Allergies Allergy (Verified 11/13/24 14:56) HPI HPI 3 mo: Details: LAST VISIT Dysphagia Postprandial epigastric pain GERD (gastroesophageal reflux disease) Abdominal bloating Umbilical hernia Plan Ultrasound to check for umbilical hernia, mild tenderness, periumbilical area. Patient will start taking vitamin-D. Continue taking found famotidine at bedtime and pantoprazole in the morning. Follow-up in 3 months. Patient will have cardiology appointment soon and we will be asking for risk stratification to send patient for upper endoscopy and possible colonoscopy. Patient will call our office if he will have any GI concerning symptoms. Patient is agreeable to plan of care and verbalizes understanding of instructions. He was given the opportunity to ask questions and all questions answered. ? Thank you for allowing me to participate in his care Orders Orders US abdomen limited 10/24/24 K42.9, K43.9 Medications New cholecalciferol (vitamin D3) 50 mcg PO DAILY 90 caps 3RF R79.89 Refilled pantoprazole 40 mg PO QAM 90 tabs 3RF K21.9 famotidine 20 mg PO BEDTIME 90 tabs 3RF TODAY'S VISIT Patient is here today for follow-up. Patient is accompanied by his daughter. Patient reports that symptoms of dysphagia improved. Patient is doing better and eating food that is softer. Patient reports that only with be he has trouble chewing and off so he can swallow. Currently is taking pantoprazole every morning and famotidine at bedtime. His symptoms of acid reflux dyspepsia and dysphagia as well as odynophagia are controlled for the most part. Patient reports that he is moving his bowels, however he feels like he does not empty his bowels completely. Frequent abdominal bloating with umbilical area distension and pain. Ultrasound did not appreciate any abdominal hernias. Patient denies melena, hematochezia, unintentional weight loss as an like stools. Patient had nuclear stress test done last week and we will send a message to his audio visual design engineer for clearance. His cardiology appointment is not until June. Patient still needs to have upper endoscopy and colonoscopy. Will ask for risk stratification. [facility] Medical History Acute HFrEF (heart failure with reduced ejection fraction) Diabetes HLD (hyperlipidemia) HTN (hypertension) Surgical History S/P cardiac catheterization S/P cardiac cath H/O heart artery stent Hx of appendectomy Social History Household Members: None Housing: Apartment Do you presently have visiting nurse or other home services: No Patient Tobacco Use Status: Tobacco use Unknown Review of Systems Const Denies weight gain and Denies weight loss ENT Reports no additional complaints, Reports dysphagia (With meat) and Denies odynophagia Card Reports no additional complaints Resp Reports no additional complaints GI Reports abdominal pain (Describes burning around umbilical area), Denies belching, Denies melena, Denies bloating, Denies change in bowel habits, Reports dysphagia (With meat), Denies excessive flatus, Denies dyspepsia, Denies heartburn, Denies diarrhea, Denies loose stools, Denies nausea, Denies odynophagia and Denies vomiting Reports no additional complaints Musc Reports no additional complaints Neuro Reports no additional complaints Psych Reports no additional complaints Endo Reports no additional complaints Physical Exam Vital Signs: Last Vital Signs Pulse 74 01/20/25 09:05 BP 142/64 H 01/20/25 09:05 Pulse Ox 100 01/20/25 09:05 Oxygen Delivery Method Room Air 01/20/25 09:05 BMI result Body Mass Index 24.8 Const General: healthy appearing, no acute distress and well developed Nutritional Appearance: well nourished Orientation/consciousness: patient oriented x3 Resp Effort & Inspection: normal respiratory effort, able to speak in complete sentences, no tracheal deviation and symmetric chest movement Auscultation: clear to auscultation bilaterally Cardio Rate: regular rate GI Inspection: No distended and No visible herniation (Periumbilical area tender) Palpation (GI): Soft to palpation, not firm, nontender and No hepatosplenomegaly present Auscultation: normal bowel sounds General: Yes no CVA tenderness Back/Spine/Pelvis Back: no CVA tenderness Skin General skin exam: elasticity normal, turgor normal and dry skin Neuro General: patient oriented x3 Psych Appearance: grossly normal Mental Status: mental status grossly normal Results Reviewed Results Reviewed: ABDOMINAL ULTRASOUND Findings: The ventral abdominal wall were scanned. There is no focal abdominal wall defect or hernia. There are no cystic or solid masses and no pathological appearing lymph nodes. IMPRESSION: Unremarkable limited abdominal ultrasound. This document has been electronically signed by: Jorge Salter MD on 10/25/2024 06:12:47 Assessment & Plan Assessment & Plan (1) Dysphagia: Code(s): R13.10 - Dysphagia, unspecified Qualifiers: Dysphagia type: pharyngoesophageal phase Qualified Code(s): R13.14 - Dysphagia, pharyngoesophageal phase (2) Postprandial epigastric pain: Code(s): R10.13 - Epigastric pain (3) GERD (gastroesophageal reflux disease): Code(s): K21.9 - Gastro-esophageal reflux disease without esophagitis Qualifiers: Esophagitis presence: esophagitis presence not specified Qualified Code(s): K21.9 - Gastro-esophageal reflux disease without esophagitis (4) Abdominal bloating: Code(s): R14.0 - Abdominal distension (gaseous) (5) Umbilical hernia: Code(s): K42.9 - Umbilical hernia without obstruction or gangrene Qualifiers: Obstruction and gangrene presence: without obstruction or gangrene Qualified Code(s): K42.9 - Umbilical hernia without obstruction or gangrene (6) Constipation: Code(s): K59.00 - Constipation, unspecified Qualifiers: Constipation type: slow transit constipation Qualified Code(s): K59.01 - Slow transit constipation Plan Patient will continue taking pantoprazole in the morning and famotidine at bedtime. Continue avoiding dietary triggers and late night snacking. Patient was encouraged to she will his food well. Cut meat to small pieces. Patient missed his upper GI series that was scheduled for the of this month. He will have financial compliance officer call and schedule another appointment for him. Patient will start taking senna daily. Increase fluid intake and activity to promote better bowel motility. Message sent to audio visual design engineer for risk stratification. Patient recently had nuclear stress test. Patient will follow-up in the office in 3 months, sooner on as needed basis. He is agreeable to this plan and verbalizes understanding of instructions. He was given the opportunity to ask questions and all questions answered Thank you for allowing me to participate in his care Medications: New sennosides (Natural Senna Laxative) 17.2 mg (2 x 8.6 mg) PO BEDTIME 60 tabs 3RF constipation K59.00 - Constipation, unspecified Coding Level of Care Code Est Pt Level 4 (24968) Complex EM visit Add On G2211 Diagnoses Pharyngoesophageal dysphagia R13.14 Dysphagia type: pharyngoesophageal phase Postprandial epigastric pain R10.13 Gastroesophageal reflux disease, unspecified whether esophagitis present K21.9 Esophagitis presence: esophagitis presence not specified Abdominal bloating R14.0 Umbilical hernia without obstruction and without gangrene K42.9 Obstruction and gangrene presence: without obstruction or gangrene Slow transit constipation K59.01 Constipation type: slow transit constipation Time Spent (min) 35 Comment 25 minutes spent with patient and additional 10 minutes spent reviewing his records
[2025-01-20 09:05] VITALS: BP 142/64; PULSE 74; O2SAT 100; BMI 24.8
--- OUTSIDE RECORDS SUMMARY | 2025-01-20 09:09 | XMS_ITS | Clinical Summary ---
Author Organization [employer] Address [address] [facility] [address] [place] [address] Care Team Providers Care Manufacturing Management Associate Name Role Phone Carolina Siddiqi MD [...] hyperglycemia, without long-term current use of insulin ([facility]) Use to test blood sugar 2 times daily 100 each 12 024 2024 Active Blood Glucose Monitoring Suppl (FreeStyle Reno Lite) w/Device kitIndications:Ty pe 2 diabetes mellitus with hyperglycemia, without long-term current use of insulin ([facility]) Use to test blood sugar 2 times daily 1 kit Active sacubitril-valsar stoddard (Entresto) 97-103 MG tabletIndications :Primary hypertension,Um Nurse nilam systolic congestive heart failure ([facility]) Take 1 tablet by mouth 2 times daily. 60 tablet 12 024 2024 Active TRUEplus Lancets 33G miscIndications:T ype 2 diabetes mellitus with hyperglycemia, without long-term current use of insulin ([facility]) USE DIRECTED TO TEST BLOOD SUGAR EVERY DAY 100 each 11 Active glucose blood (FREESTYLE LITE) test stripIndications: Type 2 diabetes mellitus with hyperglycemia, without long-term current use of insulin ([facility]) USE DIRECTED TO TEST BLOOD [...] hyperglycemia, without long-term current use of insulin ([facility]) USE DIRECTED TO TEST BLOOD SUGAR TWICE DAILY 100 each 3 Active fluticasone (Flonase) 50 MCG/ACT nasal sprayIndications: Rhinitis, unspecified type Administer 1-2 sprays into each nostril Once per day. Shake gently. Before first use, prime pump. After use, clean tip and replace cap. 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 Also showed 60 % stenosis in mid RCA + Severe diffuse disease in the left PDA--> med management Assessment & Plan (02/26/2024 12:16 PM EDT): C.Cath on 12/21/23 at [facility]: Severe LAD disease + [...] in the context of medical issues, early custodial, adjusting to living alone and language barrier. [...] Department Care Team Description 01/13/2025 Orders Only [facility] External Provider, [facility] 12/27/2024 Refill [facility] [address] [place] [address] Carolina Siddiqi MD 12/11/2024 Refill [facility] [address] [place] [address] Carolina Siddiqi MD 12/10/2024 9:15 AM EDT Office Visit [facility] [address] [place] [phone] Carolina Siddiqi MD Primary osteoarthritis of right knee (Primary Dx); Type 2 diabetes mellitus with hyperglycemia, without long-term current use of insulin ([facility]); Onycholysis; Chronic pain of right knee 12/10/2024 Travel 12/09/2024 Telephone [facility] [address] [place] [address] Carolina Siddiqi MD CHART PREP 11/29/[address] [address] Carolina Siddiqi MD Prior Authorization ([employer] [facility] Request: [place]) 11/29/2024 Patient Outreach [facility] [address] [place] [address] Carolina Siddiqi MD Pre-visit Planning ([facility] screening completed on 10/07/2024) 10/25/2024 Refill [facility] [address] [place] [address] Carolina Siddiqi MD Type 2 diabetes mellitus with hyperglycemia, without long-term current use of insulin ([facility]) 10/24/2024 Orders Only [facility] External Provider, [facility] from Last 3 Months Immunizations Name Administration [...] EDT Narrative 01/15/2025 3:44 PM EDT ? [facility] ?[address] ?[place] [address] ?Nuclear Medicine Report ? Signed ? Patient: Greg Land ?MR#: [id number] ?? 657 ? : 1960 ?Acct:[id number] ? Age/Sex: 64 / M ?ADM Date: 01/13/25 ? Loc: HO.CARD ? Attending Dr: Tan Mcwilliams MD ? Ordering Physician: Tan Mcwilliams MD ?? Date of Service: 01/13/25 ?? Procedure(s): NM mi perf SPECT rest ?? str ?? Accession Number(s): [id number] ? cc: Carolina Siddiqi MD; Tan Mcwilliams [...] DD/ 0800 ? TD/TT: 01/14/25 1430 ? Tube Skiver: ? Procedure Note Donotuseinterpreter, Image - 01/15/[address] [address] Nuclear Medicine Report Signed Patient: Rosita Land#: [id number] 657 : 9Acct:[id number] Age/Sex: 64 / MADM Date: 01/13/25 [facility]: Tan Mcwilliams MD Ordering Physician: Tan Mcwilliams MD Date of Service: 01/13/25 Procedure(s): NM mi perf SPECT rest str Accession Number(s): [id number] cc: Carolina Siddiqi MD; Tan Mcwilliams MD [...] MD Signed By: <Electronically signed by Levi iWlkes MD inOV> 01/15/25 1541 DD/ 0800 TD/TT: 01/14/25 1430 Tube Skiver: [facility] External Provider IMG NM PROCEDURES Final [...] EST Narrative 10/25/2024 6:14 AM EST ? [facility] ?[address] ?[place] [address] ? Ultrasound Report ? Signed ? Patient: Land,Greg ?MR#: [id number] ?? 657 ? : 1960 ?Acct:[id number] ? Age/Sex: 64 / M ?ADM Date: 10/24/24 ? Loc: HO.US ? Attending Dr: Glenda PELLETIER-BC ? Ordering Physician: Glenda Rosa ?? Date of Service: 10/24/24 ?? Procedure(s): US abdomen limited ?? Accession Number(s): [id number] ? cc: Carolina Siddiqi MD; Glenda Rosa-CALEB [...] ? DD/ 1 ? TD/TT: 10/25/24611 ? Tube Skiver: ? Procedure Note Marlin, Image - 10/25/[address] [address] Ultrasound Report Signed Patient: Rosita Land#: [id number] 657 : 9Acct:[id number] Age/Sex: 64 / MADM Date: 10/24/24 Loc: HO. Attending Dr: Glenda Rosa [facility] Ordering Physician: Glenda Rosa [facility] Date of Service: 10/24/24 Procedure(s): US abdomen limited Accession Number(s): [id number] cc: Carolina Siddiqi MD; Glenda Rosa [facility] CLINICAL HISTORY: K42.9 - Umbilical hernia without [...] in OV> 10/25/24612 DD/ 1 TD/TT: 10/25/24611 Tube Skiver: us [facility] External Provider IMG US PROCEDURES Final Result * Lipid Panel, Standard (09/13/2024 9:46 AM EST) Triglycerides 73 <150 mg/dL [facility] Comment:Desirable Triglyceri de: less than 150 mg/dLBorderline High Triglyceride 150-199 mg/dLHigh Triglyceride: 200-499 mg/dLVery High Triglyceride: greater than or equal to 5OO mg/dL Cholesterol 113 <200 mg/dL [facility] Comment:Desirable Cholestero l: less than 200 mg/dLBorderline High Cholesterol: 200-239 mg/dLHigh Cholesterol: greater than 239 mg/dL LDL Cholesterol Calculated 47 <100 mg/dL [facility] Comment:Desirable LDL: less than 100 mg/dLNear Optimal/Above Optimal LDL: 110- 129 mg/dLBorderline High LDL: 130-159 mg/dLHigh LDL: 160-189 mg/dLVery High LDL: greater than or equal to 190 mg/dL HDL Cholesterol 52 >40 mg/dL [facility] Comment:Desirable HDL: great er than 40 mg/dL Note: This HDL assay may give artificially low results in patients with liver disease. 09/13/2024 9:46 AM EST 09/13/2024 9:46 AM EST us Generic External Data Provider LAB BLOOD ORDERAB LES Final Result [facility] [address] [place] [address] [phone] * Cologuard?? colon cancer screening (09/27/2023 8:35 AM EST) Cologuard Result Negative Negative 10/06/19 5:26 PM EST [facility] (CLIA #:[id number]) Comment: NEGATIVE TEST RESULT. A negative Cologuard [...] cancer. ??Following a negative Cologuard result, the [place] [employer] and U.S. Multi-Society Task Force screening guidelines recommend a Cologuard re-screening interval of 3 years. References: [place] [employer] Guideline for Colorectal Cancer Screening: https://www.cancer.org/cancer/iqnqx-hdfgcd-rvhmdm/akzcqnveo-qchsrjjuq-pkzmtca/ac s-rec ommendations.html.; Kvng FINNEY, Rose HAYNES, Alaina GRIFFIN, Colorectal Cancer Screening: Recommendations for Physicians and Patients from the U.S. Multi-Society Task Force on Colorectal Cancer Screening , Am J Gastroenterology 2017; 112:4906-1560. TEST DESCRIPTION: Composite algorithmic analysis of stool [...] Clarke et al, N Engl J Med 2014;370(14):6161-4194.) Cologuard may produce a false negative or false positive result (no colorectal cancer or precancerous polyp present at colonoscopy follow up). A negative Cologuard test result does not guarantee the absence of CRC or advanced adenoma (pre-cancer). The current Cologuard screening interval is every 3 years. ([place] [employer] and U.S. Multi-Society Task Force). Cologuard performance data in a 10,000 patient pivotal study using colonoscopy as the reference method can be accessed at the following location: www.[employer].HealthLinkNow/results. Additional description of the Cologuard test process, warnings and precautions can be found at www.SaveUprd.com. Stool specimen (specimen) 09/27/2023 8:35 AM EST 09/28/2023 3:50 PM EST Carolina Mahajan MD LAB MOLECULAR DIAGNOS TICS ORDERABLES Final Result [facility] (CLIA #:[id number]) [place] [address], from Last 3 Months or Most Recently Relevant to Health Maintenance Insurance [facility] Care Teams Manufacturing Management Associate Relationship Specialty Start Date End Date Carolina Siddiqi MD [address] [place] [phone] PCP - General Internal Medicine 07/11/23 Jolie Thompson Community Health Worker Case Management 02/14/24
--- OUTSIDE RECORDS SUMMARY | 2025-01-20 09:09 | XMS_ITS | Encounter Summary ---
Author Organization [employer] Address [address] [facility] [address] [place] [address] Care Team Providers Care Health Concierge Name Role Phone Carolina Siddiqi MD Primary Care Provide r Encounter Details Date Type Department Care Team (Late st Contact Info) Description 07/19/2024 Orders Only [facility] [address] [place] [address] Carolina Siddiqi MD [address] [place] [address] Social History Tobacco Use Types Packs/Day Years [...] documented as of this encounter Care Teams Health Concierge Relationship Specialty Start Date End Date Carolina Siddiqi MD [address] [place] [phone] PCP - General Internal Medicine 07/11/23 Jolie Thompson Community Health Worker Case Management 02/14/24 documented as of this encounter
--- OUTSIDE RECORDS SUMMARY | 2025-01-20 09:09 | XMS_ITS | Encounter Summary ---
Author Organization [employer] Address [address] [facility] [address] [place] [address] Care Team Providers Care Public Service Administrator Name Role Phone Carolian Siddiqi MD Primary Care Provide r Encounter Details Date Type Department Care Team (Late st Contact Info) Description 01/13/2025 Orders Only [facility] External Provider, [facility] Social History Tobacco Use Types Packs/Day [...] t he electric, gas, oil or water [employer] threatened to shut off services in your [...] EDT Narrative 01/15/2025 3:44 PM EDT ? [facility] ?[address] ?[place] [address] ?Nuclear Medicine Report ? Signed ? Patient: Land,Greg ?MR#: [id number] ?? [id number] ? : 1960 ?Acct:[id number] ? Age/Sex: 64 / M ?ADM Date: 05/05/25 ? Loc: HO.CARD ? Attending Dr: Tan Mcwilliams MD ? Ordering Physician: Tan Mcwilliams MD ?? Date of Service: 01/13/25 ?? Procedure(s): NM im perf SPECT rest ?? str ?? Accession Number(s): [id number] ? cc: Carolina Siddiqi MD; Tan Mcwilliams [...] DD/ 0800 ? TD/TT: 01/14/25 1430 ? [employer]ic: ? Procedure Note Donsnehaleniter, Image - 01/15/2025 [place] [address] Nuclear Medicine Report Signed Patient: Rosita Land#: [id number] : 9Acct:[id number] Age/Sex: 64 / MADM Date: 01/13/25 Loc: [facility] Attending Dr: Tan Mcwilliams MD Ordering Physician: Tan Mcwilliams MD Date of Service: 01/13/25 Procedure(s): NM mi perf SPECT rest str Accession Number(s): [id number] cc: Carolina Siddiqi MD; Tan Mcwilliams MD [...] 01/15/25 1541 DD/ 0800 TD/TT: 01/14/25 1430 [employer]: [facility] External Provider IMG NM PROCEDURES Final Result documented in this encounter Visit Diagnoses Not on filedocumented in this encounter Additional Health Concerns Assessment Noted Time PHQ-9 Depression Total Score: 10 02/25/ 024 10:07 AM EDT documented as of this encounter Care Teams Public Service Administrator Relationship Specialty Start Date End Date Carolina Siddiqi MD [address] [place] [address] PCP - General Internal Medicine 07/11/23 Jolie Thompson Community Health Worker Case Management 02/14/24 documented as of this encounter
--- OUTSIDE RECORDS SUMMARY | 2025-01-20 09:09 | XMS_ITS | Encounter Summary ---
Author Organization [employer] Address [address] [facility] [address] [place] [address] Care Team Providers Care Principal Associate Name Role Phone Carolina Siddiqi MD Primary Care Provide r Encounter Details Date Type Department Care Team (Late st Contact Info) Description 02/23/2024 Orders Only [facility] MEDICINE [address] [place] [address] Yeimi Saenz MD [address] [place] [address] Social History Tobacco Use Types Packs/Day Years [...] documented as of this encounter Care Teams Principal Associate Relationship Specialty Start Date End Date Carolina Siddiqi MD [address] [place] [id number] PCP - General Internal Medicine 07/11/23 oJlie Thompson Community Health Worker Case Management 02/14/24 documented as of this encounter
--- OUTSIDE RECORDS SUMMARY | 2025-01-20 09:09 | XMS_ITS | Data Portability ---
Author Organization ID - [facility], , [facility] Address [address] [place] [address] Care Team Providers Care Luggage Repairer Name Role Phone ERIC HELLER General Surgeon Assessment No assessment recorded. Plan of Treatment Reminders Order Date Submit Date Provider Last Modified By Organization Details Last Modified Time Details Appointments None recorded. Lab hepatic function panel, serum - add on. 2015 016 [facility], [address] [place] [address], [id number], 6 04:08:03 culture, urine 2015 016 [facility], [address] [place] [address], [address], 6 04:07:56 Referral diabetes management referral - venezuelan speaker with elevated blood sugar, likely needs injectables , please assist with next steps for blood glucose management. 2015 016 Not available 6 04:08:57 physical therapist referral - pt with right scapular pain and some right shoulder pain with movements. please assist with rehabilitat ion 2015 016 [facility], [address] [place] [address], [id number], 6 04:08:57 Procedures None recorded. Surgeries None recorded. Imaging None recorded. Medication Orders metformin ER 1,000 mg tablet,exte nded release 24hr (osmotic) 2015 016 [place] [address] ([facility]), [address] [place], [id number], 6 04:07:36 glipizide 10 mg tablet 2015 016 [place] [address] ([facility]), [address] [place], [id number], 6 04:06:44 metformin 1,000 mg tablet 2015 016 [place] [address] ([facility]), [address] [place], [id number], 6 04:05:56 lisinopril 2.5 mg tablet 2015 016 [place] [address] ([facility]), [address] [place], [id number], 6 04:06:25 gabapentin 300 mg capsule 2015 016 [place] [address] ([facility]), [address] [place], [id number], 6 04:06:27 Patient TargetsNo targets recorded. Patient Instructions Encounter Date Encounter Id Patient Instructions Last Modified By Organization Details Last Modified Time 05/03/2016 [id number] Spent 25 minutes of [id number] time, of which greater than 50% was in counseling. After a discussion of treatment options, which included consideration of best practices and patient preferences, the above treatment plan and objectives were adopted. [email or web address] Not available 05/03/2016 23:18:31 07/04/2016 [id number] -Start testing blood sugar more often, at [...] Kyra Mauro, Family Medicine, Encounter Date: 06/22/2016 venezuelan speaker with elevate d blood sugar, likely needs injectables, please assist with next steps for blood glucose management. Referring Physician: Kyra Mauro, Family Medicine, Encounter Date: 06/22/2016 Results Created Date Observation Date Name Description Value Unit Range Abnormal Flag Note LastModifiedBy Organization Detail LastModifiedTime 04/12/20 16 04/12/2016 CBC w/ auto diff WBC 5.8 K/uL 3.4-11 .2 Not Available [address], [address], 04/12/2016 01:57:38 04/12/20 16 04/12/2016 CBC w/ auto diff RBC 4.71 M/uL 4.50-5 .50 Not Available [address], [address], 04/12/2016 01:57:38 04/12/20 16 04/12/2016 CBC w/ auto diff hemoglobin 13.8 g/dL 13.0-1 7.0 Not Available [address], [address], 04/12/2016 01:57:38 04/12/20 16 04/12/2016 CBC w/ auto diff hematocrit 38.1 % 40.0-5 1.0 low Not Available [address], [address], 04/12/2016 01:57:38 04/12/20 16 04/12/2016 CBC w/ auto diff MCV 80.9 fL 79.0-9 8.0 Not Available [address], [address], 04/12/2016 01:57:38 04/12/20 16 04/12/2016 CBC w/ auto diff MCH 29.3 pg 27.0-3 4.8 Not Available [address], [address], 04/12/2016 01:57:38 04/12/20 16 04/12/2016 CBC w/ auto diff MCHC 36.2 g/dL 31.5-3 6.0 high Not Available [address], [address], 04/12/2016 01:57:38 04/12/20 16 04/12/2016 CBC w/ auto diff RDW 12.9 % 10.8-1 4.6 Not Available [address], [address], 04/12/2016 01:57:38 04/12/20 16 04/12/2016 CBC w/ auto diff MPV 10.4 fL 9.4-12 .4 Not Available [address], [address], 04/12/2016 01:57:38 04/12/20 16 04/12/2016 CBC w/ auto diff platelet count 204 K/uL 130-40 0 Not Available [address], [address], 04/12/2016 01:57:38 04/12/20 16 04/12/2016 CBC w/ auto diff neutrophils 49.9 % 45.3-7 7.7 Not Available [address], [address], 04/12/2016 01:57:38 04/12/20 16 04/12/2016 CBC w/ auto diff lymphocytes 35.0 % 12.3-3 9.7 Not Available [address], [address], 04/12/2016 01:57:38 04/12/20 16 04/12/2016 CBC w/ auto diff monocytes 10.8 % 4.1-12 .8 Not Available [address], [address], 04/12/2016 01:57:38 04/12/20 16 04/12/2016 CBC w/ auto diff eosinophils 3.80 % 0.00-7 .20 Not Available [address], [address], 04/12/2016 01:57:38 04/12/20 16 04/12/2016 CBC w/ auto diff basophils 0.30 % 0.00-2 .80 Not Available [address], [address], 04/12/2016 01:57:38 04/12/20 16 04/12/2016 CBC w/ auto diff absolute neutrophil 2.9 K/uL 1.4-7. 7 Not Available [address], [address], 04/12/2016 01:57:38 04/12/2004/12/2016 CBC w/ auto diff absolute lymphocyte 2.0 K/uL 0.6-3. 2 Not Available [address], [address], 04/12/2016 01:57:38 04/12/2004/12/2016 CBC w/ auto diff absolute monocytes 0.6 K/uL 0.1-0. 6 Not Available [address], [address], 04/12/2016 01:57:38 04/12/2004/12/2016 CBC w/ auto diff absolute eosinophil 0.22 K/uL 0.01-0 .50 Not Available [address], [address], 04/12/2016 01:57:38 04/12/20 16 04/12/2016 CBC w/ auto diff absolute basophils 0.02 K/uL Not Available [address], [address], 04/12/2016 01:57:38 04/12/20 16 04/12/2016 CBC w/ auto diff immature granulocyte 0.20 % 0.00-0 .50 Not Available [address], [address], 04/12/2016 01:57:38 04/12/20 16 04/12/2016 CBC w/ auto diff absolute immature granulocyte 0.01 K/uL 0.00-0 .03 Not Available [address], [address], 04/12/2016 01:57:38 04/12/20 16 04/12/2016 tropo lenore T, serum troponin T <0.010 NG/mL 0.000- 0.030 Not Available [address], [address], 04/12/2016 02:21:34 04/12/20 16 04/12/2016 CMP, serum or plasm a glucose 289 mg/dL 70-99 high Not Available [address], [address], 04/12/2016 02:21:35 04/12/2004/12/2016 CMP, serum or plasm a BUN 10 mg/dL 6-19 Not Available [address], [address], 04/12/2016 02:21:35 04/12/20 16 04/12/2016 CMP, serum or plasm a creatinine 0.9 mg/dL 0.5-1. 5 Not Available [address], [address], 04/12/2016 02:21:35 04/12/20 16 04/12/2016 CMP, serum [...] ages of 17 and 69. Not Available [address], [address], 04/12/2016 02:21:35 04/12/2004/12/2016 CMP, serum or plasm a sodium 137 mEq/L 133-14 6 Not Available [address], [address], 04/12/2016 02:21:35 04/12/2004/12/2016 CMP, serum or plasm a potassium 4.1 mEq/L 3.3-5. 1 Not Available [address], [address], 04/12/2016 02:21:35 04/12/2004/12/2016 CMP, serum or plasm a chloride 99 mEq/L 96-108 Not Available [address], [address], 04/12/2016 02:21:35 04/12/2004/12/2016 CMP, serum or plasm a CO2 26 mEq/L 21-35 Not Available [address], [address], 04/12/2016 02:21:35 04/12/2004/12/2016 CMP, serum or plasm a calcium 9.4 mg/dL 8.4-10 .3 Not Available [address], [address], 04/12/2016 02:21:35 04/12/2004/12/2016 CMP, serum or plasm a total bilirubin 0.6 mg/dL 0.0-1. 2 Not Available [address], [address], 04/12/2016 02:21:35 04/12/20 16 04/12/2016 CMP, serum or plasm a alkaline phosphatase 87 U/L 39-117 Not Available [address], [address], 04/12/2016 02:21:35 04/12/20 16 04/12/2016 CMP, serum or plasm a AST (SGOT) 13 U/L 0-37 Not Available [address], [address], 04/12/2016 02:21:35 04/12/20 16 04/12/2016 CMP, serum or plasm a ALT (SGPT) 19 U/L 0-40 Not Available [address], [address], 04/12/2016 02:21:35 04/12/2004/12/2016 CMP, serum or plasm a total protein 6.9 g/dL 6.5-8. 0 Not Available [address], [address], 04/12/2016 02:21:35 04/12/2004/12/2016 CMP, serum or plasm a albumin 4.0 g/dL 3.9-4. 8 Not Available [address], [address], 04/12/2016 02:21:35 04/12/2004/12/2016 CMP, serum or plasm a globulin 2.9 gm/dL 1.0-4. 8 Not Available [address], [address], 04/12/2016 02:21:35 04/12/2004/12/2016 CMP, serum or plasm a A/G ratio 1.4 gm/dL 1.0-4. 8 Not Available [address], [address], 04/12/2016 02:21:35 04/12/2004/12/2016 CMP, serum or plasm a anion gap 16 mEq/L 10-20 Not Available [facility] [address] [facility], [place], [address], 04/12/2016 02:21:35 05/31/20 16 05/31/2016 POC UA glu UA 1+ abnormal Not Available [address], [address], 05/31/2016 16:34:04 05/31/20 16 05/31/2016 POC UA clarity UA Slight ly Cloudy Not Available [address], [address], 05/31/2016 16:34:04 05/31/20 16 05/31/2016 POC UA uro UA 1.0000 Not Available [address], [address], 05/31/2016 16:34:04 05/31/20 16 05/31/2016 POC UA ket UA Negati ve Not Available [address], [address], 05/31/2016 16:34:04 05/31/20 16 05/31/2016 POC UA pro UA Trace abnormal Not Available [address], [address], 05/31/2016 16:34:04 05/31/20 16 05/31/2016 POC UA nit UA Negati ve Not Available [address], [address], 05/31/2016 16:34:04 05/31/20 16 05/31/2016 POC UA neida UA Negati ve Not Available [address], [address], 05/31/2016 16:34:04 05/31/20 16 05/31/2016 POC UA pH UA 6.0000 Not Available [address], [address], 05/31/2016 16:34:04 05/31/20 16 05/31/2016 POC UA SG UA >=1.03 00 Not Available [address], [address], 05/31/2016 16:34:04 05/31/20 16 05/31/2016 POC UA color UA Dark yellow Not Available [address], [address], 05/31/2016 16:34:04 05/31/20 16 05/31/2016 POC UA blo UA Negati ve Not Available [address], [address], 05/31/2016 16:34:04 05/31/20 16 05/31/2016 POC UA lisa UA Negati ve Not Available [address], [address], 05/31/2016 16:34:04 05/31/20 16 06/02/2016 cultu re, urine culture, urine, routine CULTU RE, URINE , ROUTI NE MICRO NUMBE R: [id number] TEST STATU S: FINAL SPECI MEN SOURC E: URINE SPECI MEN QUALI TY: ADEQU ATE RESUL T: No Growt h Not Available [facility] [address] [place] [address], [address], 06/02/2016 00:43:22 06/02/20 16 06/02/2016 BMP, serum or plasm a glucose 218 mg/dL 70-100 high Not Available [address], [address], 06/02/2016 11:19:48 06/02/20 16 06/02/2016 BMP, serum or plasm a BUN 8 mg/dL 7-18 Not Available [address], [address], 06/02/2016 11:19:48 06/02/20 16 06/02/2016 BMP, serum or plasm a creatinine 0.9 mg/dL 0.8-1. 3 Not Available [address], [address], 06/02/2016 11:19:48 06/02/20 16 06/02/2016 BMP, serum or plasm a B/C 8.9 ratio Not Available [address], [address], 06/02/2016 11:19:48 06/02/20 16 06/02/2016 BMP, serum or plasm a GFR -non 92.4 mL/mi n Recom marychuy d GFR by the Natio nal Kidne y Found ation >60 mL/mi n/1.7 3m2 - Mariam l <60 mL/mi n/1.7 3m2 - Chron ic Kidne y Disea se <15 mL/mi n/1.7 3m2 - Kidne y Failu re Not Available [address], [address], 06/02/2016 11:19:48 06/02/20 16 06/02/2016 BMP, serum or plasm a GFR - if 111.9 mL/mi n For Afric an Ameri can patie nts: Resul ts Multi plied by 1.21 Not Available [address], [address], 06/02/2016 11:19:48 06/02/20 16 06/02/2016 BMP, serum or plasm a sodium 144 mmol/ L 136-14 5 Not Available [address], [address], 06/02/2016 11:19:48 06/02/20 16 06/02/2016 BMP, serum or plasm a potassium 4.5 mmol/ L 3.5-5. 1 Not Available [address], [address], 06/02/2016 11:19:48 06/02/20 16 06/02/2016 BMP, serum or plasm a chloride 105 mmol/ L 96-107 Not Available [address], [address], 06/02/2016 11:19:48 06/02/20 16 06/02/2016 BMP, serum or plasm a anion gap 10.1 5.0-15 .0 Not Available [address], [address], 06/02/2016 11:19:48 06/02/20 16 06/02/2016 BMP, serum or plasm a CO2 29 mmol/ L 21-32 Not Available [address], [address], 06/02/2016 11:19:48 06/02/20 16 06/02/2016 BMP, serum or plasm a calcium 9.3 mg/dL 8.5-10 .3 Not Available [address], [address], 06/02/2016 11:19:48 06/02/20 16 06/02/2016 lipid panel , serum cholesterol 184 mg/dL <200 mg/dl Jonathon able 200-2 39 mg/dl Borde rline High >240 mg/dl High Not Available [address], [address], 06/02/2016 11:19:49 06/02/20 16 06/02/2016 lipid panel , serum triglyceride s 116 mg/dL <150 mg/dL Mariam l 150-1 99 mg/dL Borde rline High 200-4 99 mg/dL High >500 mg/dL Very High Not Available [address], [address], 06/02/2016 11:19:49 06/02/20 16 06/02/2016 lipid panel , serum direct HDL 45 mg/dL Not Available [address], [address], 06/02/2016 11:19:49 06/02/20 16 06/02/2016 LDL, calcu [...] r is not mahin antoine. Not Available [address], [address], 06/02/2016 11:19:49 06/02/20 16 06/02/2016 HbA1c (hemo globi n A1c), blood hemoglobin A1C 7.7 % 4.8-6. 0 high Goal: <7% in Patie nts with Diabe brisa Not Available [address], [address], 06/02/2016 11:26:54 06/02/20 16 06/02/2016 HbA1c (hemo globi n A1c), blood estimated average glucose 174.3 mg/dL Not Available [address], [address], 06/02/2016 11:26:54 06/02/20 16 06/02/2016 micro album in, urine microalbumin 19.7 mg/L 1.3-20 .0 Not Available [address], [address], 06/02/2016 12:41:00 06/02/20 16 06/02/2016 micro album in, urine creatinine urine 201.4 mg/dL 30.0-1 25.0 high Not Available [address], [address], 06/02/2016 12:41:00 06/02/20 16 06/02/2016 micro album in, urine microalb/cre at ratio 9.8 mg/g_ creat 0.0-29 .0 Not Available [address], [place], [address], 06/02/2016 12:41:00 03/08/20 17 03/08/2017 urina lysis , refle x cultu re color Yellow Not Available [address], [address], 03/08/2017 21:57:08 03/08/20 17 03/08/2017 urina lysis , refle x cultu re appearance Clear Not Available [address], [address], 03/08/2017 21:57:08 03/08/20 17 03/08/2017 urina lysis , refle x cultu re specific gravity <=1.00 5 1.005- 1.030 Not Available [address], [address], 03/08/2017 21:57:08 03/08/20 17 03/08/2017 urina lysis , refle x cultu re pH 6.0 5.0-7. 0 Not Available [address], [address], 03/08/2017 21:57:08 03/08/20 17 03/08/2017 urina lysis , refle x cultu re protein Negati ve negati ve Not Available [address], [address], 03/08/2017 21:57:08 03/08/20 17 03/08/2017 urina lysis , refle x cultu re glucose 3+ negati ve abnormal Not Available [address], [address], 03/08/2017 21:57:08 03/08/20 17 03/08/2017 urina lysis , refle x cultu re ketones Negati ve negati ve Not Available [address], [address], 03/08/2017 21:57:08 03/08/20 17 03/08/2017 urina lysis , refle x cultu re bilirubin Negati ve negati ve Not Available [address], [address], 03/08/2017 21:57:08 03/08/20 17 03/08/2017 urina lysis , refle x cultu re blood Negati ve negati ve Not Available [address], [address], 03/08/2017 21:57:08 03/08/20 17 03/08/2017 urina lysis , refle x cultu re nitrite Negati ve negati ve Not Available [address], [address], 03/08/2017 21:57:08 03/08/20 17 03/08/2017 urina lysis , refle x cultu re leukocyte esterase Negati ve negati ve Not Available [address], [address], 03/08/2017 21:57:08 03/08/20 17 03/08/2017 CBC w/ auto diff WBC 5.6 K/uL 3.4-11 .2 Not Available [address], [address], 03/08/2017 21:57:30 03/08/20 17 03/08/2017 CBC w/ auto diff RBC 4.86 M/uL 4.50-5 .50 Not Available [address], [address], 03/08/2017 21:57:30 03/08/20 17 03/08/2017 CBC w/ auto diff hemoglobin 14.0 g/dL 13.0-1 7.0 Not Available [address], [address], 03/08/2017 21:57:30 03/08/20 17 03/08/2017 CBC w/ auto diff hematocrit 38.7 % 40.0-5 1.0 low Not Available [address], [address], 03/08/2017 21:57:30 03/08/20 17 03/08/2017 CBC w/ auto diff MCV 79.6 fL 79.0-9 8.0 Not Available [address], [address], 03/08/2017 21:57:30 03/08/20 17 03/08/2017 CBC w/ auto diff MCH 28.8 pg 27.0-3 4.8 Not Available [address], [address], 03/08/2017 21:57:30 03/08/20 17 03/08/2017 CBC w/ auto diff MCHC 36.2 g/dL 31.5-3 6.0 high Not Available [address], [address], 03/08/2017 21:57:30 03/08/20 17 03/08/2017 CBC w/ auto diff RDW 12.9 % 10.8-1 4.6 Not Available [address], [address], 03/08/2017 21:57:30 03/08/20 17 03/08/2017 CBC w/ auto diff MPV 10.8 fL 9.4-12 .4 Not Available [address], [address], 03/08/2017 21:57:30 03/08/2003/08/2017 CBC w/ auto diff platelet count 207 K/uL 130-40 0 Not Available [address], [address], 03/08/2017 21:57:30 03/08/2003/08/2017 CBC w/ auto diff neutrophils 50.8 % 45.3-7 7.7 Not Available [address], [address]96, 03/08/2017 21:57:30 03/08/20 17 03/08/2017 CBC w/ auto diff lymphocytes 32.9 % 12.3-3 9.7 Not Available [address], [address], 03/08/2017 21:57:30 03/08/20 17 03/08/2017 CBC w/ auto diff monocytes 13.2 % 4.1-12 .8 high Not Available [address], [address], 03/08/2017 21:57:30 03/08/20 17 03/08/2017 CBC w/ auto diff eosinophils 2.70 % 0.00-7 .20 Not Available [address], [address], 03/08/2017 21:57:30 03/08/20 17 03/08/2017 CBC w/ auto diff basophils 0.20 % 0.00-2 .80 Not Available [address], [address], 03/08/2017 21:57:30 03/08/20 17 03/08/2017 CBC w/ auto diff absolute neutrophil 2.9 K/uL 1.4-7. 7 Not Available [address], 04852, 03/08/2017 21:57:30 03/08/20 17 03/08/2017 CBC w/ auto diff absolute lymphocyte 1.8 K/uL 0.6-3. 2 Not Available [address], [address]10, 03/08/2017 21:57:30 03/08/20 17 03/08/2017 CBC w/ auto diff absolute monocytes 0.7 K/uL 0.1-0. 6 high Not Available [address], [address], 03/08/2017 21:57:30 03/08/20 17 03/08/2017 CBC w/ auto diff absolute eosinophil 0.15 K/uL 0.01-0 .50 Not Available [address], [address]774, 03/08/2017 21:57:30 03/08/20 17 03/08/2017 CBC w/ auto diff absolute basophils 0.01 K/uL Not Available [address], 93222, 03/08/2017 21:57:30 03/08/20 17 03/08/2017 CBC w/ auto diff immature granulocyte 0.20 % 0.00-0 .50 Not Available [address], [address]305, 03/08/2017 21:57:30 03/08/20 17 03/08/2017 CBC w/ auto diff absolute immature granulocyte 0.01 K/uL 0.00-0 .03 Not Available [address], [address], 03/08/2017 21:57:30 03/08/2003/08/2017 CMP, serum or plasm a glucose 499 mg/dL 70-99 high Not Available [address], [address], 03/08/2017 22:21:58 03/08/2003/08/2017 CMP, serum or plasm a BUN 6 mg/dL 6-19 Not Available [address], [address], 03/08/2017 22:21:58 03/08/2003/08/2017 CMP, serum or plasm a creatinine 1.1 mg/dL 0.5-1. 5 Not Available [address], [address], 03/08/2017 22:21:58 03/08/2003/08/2017 CMP, serum or plasm [...] ages of 17 and 69. Not Available [address], [address], 03/08/2017 22:21:58 03/08/20 17 03/08/2017 CMP, serum or plasm a sodium 136 mEq/L 133-14 6 Not Available [address], [address], 03/08/2017 22:21:58 03/08/20 17 03/08/2017 CMP, serum or plasm a potassium 4.2 mEq/L 3.3-5. 2 Not Available [address], [address]45, 03/08/2017 22:21:58 03/08/2003/08/2017 CMP, serum or plasm a chloride 98 mEq/L 96-108 Not Available [address], 6[address], 03/08/2017 22:21:58 03/08/2003/08/2017 CMP, serum or plasm a CO2 27 mEq/L 21-35 Not Available [address], 6[address]61, 03/08/2017 22:21:58 03/08/2003/08/2017 CMP, serum or plasm a calcium 9.4 mg/dL 8.4-10 .3 Not Available [address], [address], 03/08/2017 22:21:58 03/08/2003/08/2017 CMP, serum or plasm a total bilirubin 0.4 mg/dL 0.0-1. 2 Not Available [address], 91965, 03/08/2017 22:21:58 03/08/2003/08/2017 CMP, serum or plasm a alkaline phosphatase 115 U/L 39-117 Not Available [address], [address], 03/08/2017 22:21:58 03/08/20 17 03/08/2017 CMP, serum or plasm a AST (SGOT) 11 U/L 0-37 Not Available [address], [address], 03/08/2017 22:21:58 03/08/20 17 03/08/2017 CMP, serum or plasm a ALT (SGPT) 14 U/L 0-40 Not Available [address], [address]25, 03/08/2017 22:21:58 03/08/20 17 03/08/2017 CMP, serum or plasm a total protein 7.4 g/dL 6.5-8. 0 Not Available [address], [address]34, 03/08/2017 22:21:58 03/08/20 17 03/08/2017 CMP, serum or plasm a albumin 4.1 g/dL 3.9-4. 8 Not Available [address], 92767, 03/08/2017 22:21:58 03/08/20 17 03/08/2017 CMP, serum or plasm a globulin 3.3 gm/dL 1.0-4. 8 Not Available [address], [address], 03/08/2017 22:21:58 03/08/20 17 03/08/2017 CMP, serum or plasm a A/G ratio 1.2 gm/dL 1.0-4. 8 Not Available [address], 87272, 03/08/2017 22:21:58 03/08/20 17 03/08/2017 CMP, serum or plasm a anion gap 15 mEq/L 10-20 Not Available [address], [address]807, 03/08/2017 22:21:58 03/08/20 17 03/08/2017 C react alfreda prote in, QN, serum or plasm a C-reactive protein 0.24 mg/dL 0.00-0 .50 Not Available [address], [address]184, 03/08/2017 22:21:58 03/08/20 17 03/08/2017 lipas e, serum or plasm a lipase 37 U/L 16-63 Not Available [address], [address], 03/08/2017 22:21:59 10/16/19 18 10/16/2017 urina lysis , refle x cultu re color Yellow yellow Not Available [facility] [address] [place] [address], [address], 10/16/2017 15:03:07 10/16/19 18 10/16/2017 urina lysis , refle x cultu re clarity Clear Not Available [facility] ([facility]) [address] [place] [address], [address], 10/16/2017 15:03:07 10/16/19 18 10/16/2017 urina lysis , refle x cultu re glucose 3+ negati ve abnormal Not Available [facility] ([facility]) [address] [place] [address], [address], 10/16/2017 15:03:07 10/16/19 18 10/16/2017 urina lysis , refle x cultu re bili Negati ve negati ve Not Available [facility] ([facility]) [address] [place] [address], [address], 10/16/2017 15:03:07 10/16/19 18 10/16/2017 urina lysis , refle x cultu re ketones Negati ve negati ve Not Available [facility] ([facility]) [address] [place] [address], [address], 10/16/2017 15:03:07 10/16/19 18 10/16/2017 urina lysis , refle x cultu re specific gravity 1.010 1.005- 1.030 Not Available [facility] ([facility]) [address] [place], [address], 10/16/2017 15:03:07 10/16/19 18 10/16/2017 urina lysis , refle x cultu re blood Negati ve negati ve Not Available [facility] ([facility]) [address] [place], [address], 10/16/2017 15:03:07 10/16/19 18 10/16/2017 urina lysis , refle x cultu re pH 5.5 5.0-8. 0 Not Available [facility] ([facility]) [address] [place], [address], 10/16/2017 15:03:07 10/16/19 18 10/16/2017 urina lysis , refle x cultu re protein Negati ve negati ve Not Available [facility] ([facility]) [address] [place], [address], 10/16/2017 15:03:07 10/16/19 18 10/16/2017 urina lysis , refle x cultu re nitrite Negati ve negati ve Not Available [facility] ([facility]) [address] [place], [address], 10/16/2017 15:03:07 10/16/19 18 10/16/2017 urina lysis , refle x cultu re leukocyte esterase, ur Negati ve negati ve Not Available [facility] ([facility]) [address] [place], [address], 10/16/2017 15:03:07 10/16/19 18 10/16/2017 CBC w/ auto diff WBC 5.58 K/uL 3.40-1 1.20 Not Available [facility] ([facility]) [address] [place], [address], 10/16/2017 16:30:11 10/16/19 18 10/16/2017 CBC w/ auto diff RBC 4.75 M/uL 4.50-5 .50 Not Available [facility] ([facility]) [address] [place], [address], 10/16/2017 16:30:11 10/16/19 18 10/16/2017 CBC w/ auto diff HGB 13.7 g/dL 13.0-1 7.0 Not Available [facility] ([facility]) [address] [place], [address], 10/16/2017 16:30:11 10/16/19 18 10/16/2017 CBC w/ auto diff HCT 39.0 % 40.0-5 1.0 low Not Available [facility] (Outpatient) [address] [place] [address], [id number], 10/16/2017 16:30:11 10/16/19 18 10/16/2017 CBC w/ auto diff plt 218 K/uL 130-40 0 Not Available [facility] (Outpatient) [address] [place] [address], [id number], 10/16/2017 16:30:11 10/16/19 18 10/16/2017 CBC w/ auto diff MCV 82.1 fL 79.0-9 8.0 Not Available [facility] (Outpatient) [address] [place] [address], [id number], 10/16/2017 16:30:11 10/16/19 18 10/16/2017 CBC w/ auto diff MCH 28.8 pg 27.0-3 4.8 Not Available [facility] (Outpatient) [address] [place] [address], [id number], 10/16/2017 16:30:11 10/16/19 18 10/16/2017 CBC w/ auto diff MCHC 35.1 g/dL 31.5-3 6.0 Not Available [facility] (Outpatient) [address] [place], [id number], 10/16/2017 16:30:11 10/16/19 18 10/16/2017 CBC w/ auto diff RDW 12.8 % 10.8-1 4.6 Not Available [facility] (Outpatient) [address] [place] [address], [id number], 10/16/2017 16:30:11 10/16/19 18 10/16/2017 CBC w/ auto diff MPV 10.9 fL 9.4-12 .4 Not Available [facility] (Outpatient) [address] [place] [address], [id number], 10/16/2017 16:30:11 10/16/19 18 10/16/2017 CBC w/ auto diff NRBC 0.00 /100_ WBCs Not Available [facility] (Outpatient) [address] [place] [address], [address], 10/16/2017 16:30:11 10/16/19 18 10/16/2017 CBC w/ auto diff absolute NRBC 0.00 K/uL Not Available [facility] (Outpatient) [address] [place] [address], [address], 10/16/2017 16:30:11 10/16/19 18 10/16/2017 CBC w/ auto diff diff method Auto Not Available [facility] (Outpatient) [address] [place], [address], 10/16/2017 16:30:11 10/16/19 18 10/16/2017 CBC w/ auto diff neuts 54.2 % 45.30- 77.70 Not Available [facility] (Out[facility]) [address] [place] [address], [address], 10/16/2017 16:30:11 10/16/19 18 10/16/2017 CBC w/ auto diff lymphs 32.1 % 12.30- 39.70 Not Available [facility] (Outpatient) [address] [place], [address], 10/16/2017 16:30:11 10/16/19 18 10/16/2017 CBC w/ auto diff monos 10.4 % 4.10-1 2.80 Not Available [facility] (Out[facility]) [address] [place], [address], 10/16/2017 16:30:11 10/16/19 18 10/16/2017 CBC w/ auto diff eos 2.7 % 0-7.2 Not Available [facility] (Out[facility]) [address] [place] [address], [address], 10/16/2017 16:30:11 10/16/19 18 10/16/2017 CBC w/ auto diff basos 0.4 % 0-2.80 Not Available [facility] (Out[facility]) [address] [place], [address], 10/16/2017 16:30:11 10/16/19 18 10/16/2017 CBC w/ auto diff granulocytes , immature (%) 0.2 % 0.0-0. 9 Not Available [facility] (Out[facility]) [address] [place], [address], 10/16/2017 16:30:11 10/16/19 18 10/16/2017 CBC w/ auto diff absolute neuts 3.03 K/uL 1.40-7 .70 Not Available [facility] ([facility]) [address] [place], [address], 10/16/2017 16:30:11 10/16/19 18 10/16/2017 CBC w/ auto diff absolute lymphs 1.79 K/uL 0.60-3 .20 Not Available [facility] ([facility]) [address] [place], [address], 10/16/2017 16:30:11 10/16/19 18 10/16/2017 CBC w/ auto diff absolute monos 0.58 K/uL 0.11-0 .59 Not Available [facility] ([facility]) [address] [place], [address], 10/16/2017 16:30:11 10/16/19 18 10/16/2017 CBC w/ auto diff absolute eos 0.15 K/uL 0.01-0 .50 Not Available [facility] ([facility]) [address] [place], [address], 10/16/2017 16:30:11 10/16/19 18 10/16/2017 CBC w/ auto diff absolute basos 0.02 K/uL 0.00-0 .08 Not Available [facility] (Out[facility]) [address] [place], [address], 10/16/2017 16:30:11 10/16/19 18 10/16/2017 CBC w/ auto diff granulocytes , immature 0.01 K/uL 0.00-0 .05 Not Available [facility] (Out[facility]) [address] [place], [address], 10/16/2017 16:30:11 10/16/19 18 10/16/2017 BMP, blood sodium 142 mmol/ L 133-14 6 Not Available [facility] ([facility]) [address] [place], [address], 10/16/2017 16:53:22 10/16/19 18 10/16/2017 BMP, blood chloride 105 mmol/ L 96-108 Not Available [facility] ([facility]) [address] [place], [address], 10/16/2017 16:53:22 10/16/19 18 10/16/2017 BMP, blood potassium 4.7 mmol/ L 3.3-5. 1 Not Available [facility] ([facility]) [address] [place], [address], 10/16/2017 16:53:22 10/16/19 18 10/16/2017 BMP, blood CO2 29 mmol/ L 21-35 Not Available [facility] ([facility]) [address] [place] [address], [address], 10/16/2017 16:53:22 10/16/19 18 10/16/2017 BMP, blood BUN 6 mg/dL 6-19 Not Available [facility] ([facility]) [address] [place] [address], [address], 10/16/2017 16:53:22 10/16/19 18 10/16/2017 BMP, blood creatinine 0.90 mg/dL 0.5-1. 5 Not Available [facility] ([facility]) [address] [place] [address], [address], 10/16/2017 16:53:22 10/16/19 18 10/16/2017 BMP, blood glucose 229 mg/dL 70-99 high Not Available [facility] ([facility]) [address] [place] [address], [address], 10/16/2017 16:53:22 10/16/19 18 10/16/2017 BMP, blood calcium 9.6 mg/dL 8.4-10 .3 Not Available [facility] ([facility]) [address] [place] [address], [address], 10/16/2017 16:53:22 10/16/19 18 10/16/2017 BMP, blood eGFR >60 mL/mi n/1.7 3m2 >60 Abnor mal if <60. If patie nt is Afric an-Am kwabena n, multi ply the resul t by 1.21. Not Available [facility] (Out[facility]) [address] [place] [address], [address], 10/16/2017 16:53:22 10/16/19 18 10/16/2017 BMP, blood anion gap 13 mmol/ L 10-20 Not Available [facility] ([facility]) [address] [place] [address], [address], 10/16/2017 16:53:22 10/16/19 18 10/16/2017 lipas e, serum or plasm a lipase 25 U/L 16-63 Not Available [facility] ([facility]) [address] [place], [address], 10/16/2017 16:53:24 10/16/19 18 10/16/2017 lfts (hepa tic panel ) alkaline phosphatase 98 U/L 39-117 Not Available [facility] (Outpatient) [address] [place], [address], 10/16/2017 16:53:26 10/16/19 18 10/16/2017 lfts (hepa tic panel ) total bilirubin 0.5 mg/dL 0-1.2 Not Available [facility]) [address] [place] [address], [address], 10/16/2017 16:53:26 10/16/19 18 10/16/2017 lfts (hepa tic panel ) direct bilirubin <0.2 mg/dL 0-0.3 Not Available [facility] ([facility]) [address] [place], [address], 10/16/2017 16:53:26 10/16/19 18 10/16/2017 lfts (hepa tic panel ) bilirubin (indirect) NOT CALCUL ATED mg/dL 0-1.5 Not Available [facility]) [address] [place] [address], [address], 10/16/2017 16:53:26 10/16/19 18 10/16/2017 lfts (hepa tic panel ) AST 14 U/L 0-37 Not Available [facility] ([facility]) [address] [place] [address], [address], 10/16/2017 16:53:26 10/16/19 18 10/16/2017 lfts (hepa tic panel ) ALT 16 U/L 0-40 Not Available [facility] ([facility]) [address] [place] [address], [address], 10/16/2017 16:53:26 10/16/19 18 10/16/2017 lfts (hepa tic panel ) total protein 7.4 g/dL 6.5-8. 0 Not Available [facility] ([facility]) [address] [place], [address], 10/16/2017 16:53:26 10/16/19 18 10/16/2017 lfts (hepa tic panel ) albumin 4.3 g/dL 3.9-4. 8 Not Available [facility] ([facility]) [address] [place], [address], 10/16/2017 16:53:26 10/16/19 18 10/16/2017 lfts (hepa tic panel ) globulin 3.1 g/dL 1-4.8 Not Available [facility] ([facility]) [address] [place], [address], 10/16/2017 16:53:26 10/16/19 18 10/16/2017 lfts (hepa tic panel ) A/G ratio 1.39 ratio 1.00-4 .80 Not Available [facility] ([facility]) [address] [place], [address], 10/16/2017 16:53:26 04/12/20 16 04/12/2016 XR, chest , 2 view No observ ation record ed. sbrulotte [facility] [address] [place], [address], 04/18/2016 07:51:26 06/16/20 16 04/12/2016 chest 2 [...] DORIAN MON MD 2015 06:35 AM mmastroberti [facility] [address] [facility], [place], [address], 06/17/2016 10:45:13 03/09/20 17 03/09/2017 CT, abdom [...] . Initia l report render ed by [facility]. POS - CDHRAD BOARDW S7 Electr onical ly Signed by: MO CERON on 017 10:12 AM Techno logist : NINI MONICA KEVIN Transc ribed by: Yuli allen, PS360 Result s 2016 10:04 AM Electr onical ly Signed By: MO CERON MD 2016 10:12 AM [facility] [address] [place] [address], [address], 03/13/2017 13:11:35 10/17/19 18 10/16/2017 xr abdom [...] S11 Electr onical ly Signed by: DORIAN LEORA MD on 10/17/19 18 6:38 AM Interp reted by: Dorian loera MD Signed by: Dorian loera MD 10/17/17 Final result P.S. LQP X 7 MONTHS ROBLESSmiley ISAAC [facility] [address] [place] [address], [address], 10/17/2017 08:11:32 Result Notes None recorded. Problems Name Problem SNOMED Code Status Onset Date Resolution Date Notes Provider Name and Address Organization Details Recorded Time Essential hypertensio n 51986289 Completed 01/20/2016 Robles Isaac MD [address] [place], [place] [address], [address], [facility] 6 23:10:47 Diabetes mellitus 04508254 Completed 01/20/2016 Robles Isaac MD [address] [place], [place] [address], [address], [facility] 6 23:10:50 Skin lesion 47871852 Completed 01/20/2016 Robles hendrickson MD [address] [place], [place] [address], [address], [facility] 6 23:10:54 Benign essential hypertensio n 8168515 Active Robles Isaac MD [address] [place], [place] [address], [address], [facility] 6 08:53:56 Mixed hyperlipide muna 782017310 Active Robles Isaac MD [address] [place], [place] [address], [address], [facility] 6 08:53:56 Uncontrolle d type 2 diabetes mellitus 336521203 Active Robles Isaac MD [address] [place], [place] [address], [address], [facility] 6 08:53:56 Problem Notes None recorded. Procedures Surgical History Date Name Laterality Status Provider Name and Address Organization Details Recorded Time 6 POC Urinalysis Testing completed Yocasta Brownlee [facility] 05/31/2016 16:24:56 4 Excision completed Robles Isaac MD [address] [place] [address], [address], [facility] 10/15/2013 11:15:56 Imaging Results Imaging Date Name Status LastModified by Organiz ation Details LastModified Time 04/12/2016 XR, chest, 2 view completed [facility] [address] [facility], [place], [address], 04/18/2016 07:51:26 04/12/2016 chest 2 V completed mmastroberti [facility] [address] [place], [address], 06/17/2016 10:45:13 03/09/2017 CT, abdomen + pelvis, w/o contrast completed [facility] [address] [place], [address], 03/13/2017 13:11:35 10/16/2017 xr abdomen series supine with decubitis/ere ct and single view chest completed [facility] [address] [place], [address], 10/17/2017 08:11:32 Procedure Notes None recorded. Medical [...] Available Not Available No t Available FreeStyle [place] Lite kit active Not Available Not Available Not Available Vitals Date Recorded Body height Body weight Body mass index (BMI) Systolic blood pressure Diastolic blood pressure Provider Name and Address Organization Details Last Updated DateTime 05/03/2016 158.115 cm 83101.45 g 27.4 kg/m2 144 mm[Hg] 74 mm[Hg] Alessandra Orellana MA [facility] 6 08:30:54 Date Recorded Body height Heart rate Oxygen saturation Oxygen saturation in Arterial blood by Pulse oximetry Systolic blood pressure Diastolic blood pressure Provider Name and Address Organization Details Last Updated DateTime 6 158.115 cm 85 /min 98 % 98 % 142 mm[Hg] 88 mm[Hg] [facility] 6 16:06:44 Date Recorded Body height Systolic blood pressure Diastolic blood pressure Provider Name and Address Organization Details Last Updated DateTime 06/06/2016 158.115 cm 142 mm[Hg] 72 mm[Hg] [facility] 06/06/2016 09:58:35 Date Recorded Body height Body weight Body mass index (BMI) Systolic blood pressure Diastolic blood pressure Provider Name and Address Organization Details Last Updated DateTime 06/22/2016 158.115 cm 93416.26 g 27.3 kg/m2 150 mm[Hg] 80 mm[Hg] [facility] 6 11:20:12 Social History Question Answer Notes LastModified by Organizat ion Details LastModified Time Tobacco Smoking Status Never Smoker Alessandra Orellana MA [facility] 10/02/2013 10:35:52 Are You Blind Or Do You Have Difficulty Seeing? Yes Information not available 10/02/2013 What Is Your Level Of Caffeine Consumption? Moderate Information not available 10/02/2013 Are You Deaf Or Do You Have Serious Difficulty Hearing? Yes Information not available 10/02/2013 What Type Of Diet Are You Following? REGULAR Information not available 10/02/2013 How Many Days [...] Functional Status Question Answer Note LastModified by Organizat ion Details LastModified Time What is your level of alcohol consumption? None Information not available 10/02/2013 Do you have difficulty walking or climbing stairs? No Information no t available 10/02/2013 Do you have difficulty doing errands alone? No Information not available 10/02/2013 What is your occupation? Works at [employer] Information not available 10/02/2013 Do you have difficulty dressing or bathing? No Information not available 10/02/2013 Mental Status Question Answer Note LastModified by Organizat ion Details LastModified Time Do you have difficulty concentrating, remembering or making decisions? Yes [facility] Information n ot available 10/02/2013 Family History [...] Recorded Time Tdap 4 completed Not Available [facility] 09/28/2019 02:16:08 Influenza, split virus, quadrivalent, PF 4 completed Not Available [facility] 09/28/2019 02:18:56 pneumococcal polysaccharide PPV23 4 completed Not Available [facility] 09/28/2019 02:14:36 Influenza, split virus, trivalent, PF 4 completed Not Available [facility] 09/28/2019 02:19:21 Influenza, split virus, quadrivalent, PF 6 completed Not Available [facility] 09/28/2019 02:33:00 Past Encounters Encounter ID Performer Location Encounter Start Date Encounter Closed Date Diagnosis/Indication Diagnosis SNOMED-CT Code Diagnosis ICD10 Code Diagnosis Note [id number] Robles Isaac MD , [facility], [address] [place] [address] 10/02/2013 10:13:34 10/02/2013 11:26:17 Essential hypertension 46916673 Elevated BP. Previously not engaged in care. Low salt diet recommende d. Start Chlorthali done. Will add SHUN-I once renal function establishe d. Follow up in 1 week. Advised to get fasting labwork tomorrow. Diabetes mellitus 73992563 Patient with new-onset diabetes. Symptoms of polydipsia [...] week. Screening for malignant neoplasm of colon 870126485 Skin lesion 03470371 Inv olving the left posterior upper arm. Likely epidermoid cyst. Schedule for an excision. No clinical evidence of cellulitis or acute abscess. Influenza vaccine needed [id number] 106 Administra tion of diphtheria, pertussis, and tetanus vaccine [id number] Robles Isaac MD , [facility], [address] [place] [address] 10/09/2013 09:59:46 10/09/2013 13:05:30 Essential hypertension 83564820 Previously not engaged in care. Tolerating Chlorthali done. BP improved. Low salt diet recommende d. Will add Lisinopril 2.5mg po daily. Repeat BMP at his next visit. Diabetes mellitus 73721589 Patient with new-onset diabetes. Symptoms of polydipsia [...] start SHUN-I. Follow up in 1 week. [id number] Robles Isaac MD , [facility], [address] [place] [address] 10/15/2013 10:06:38 10/15/2013 13:08:04 Diabetes mellitus 66933659 Patient with new-onset diabetes. Symptoms of polydipsia [...] in 1 week. Epidermoid cyst of skin 136583119 Non-infect ed, left upper arm cyst removed [...] week for wound check and suture removal. [id number] Robles Isaac MD , [facility], [address] [place] [address] 10/23/2013 14:35:31 10/23/2013 15:12:07 Chest pain [id number] His symptoms of left-sided chest pain and [...] s for UC/ER use discussed. Skin lesion 79857729 Inv olving the left posterior upper arm. Sutures removed. Hypertroph ic scar and contact dermatitis noted. Purulent discharge expressed with suture removal. Wound care discussed. Gauze applied. Follow up early next week for a follow up. Consider General Surgery referral if not healed completely . [id number] Robles Isaac MD , [facility], [address] [place] [address] 10/30/2013 08:21:52 10/30/2013 08:54:16 Essential hypertension 63113506 Previously was not engaged in care. Tolerating Chlorthali done and Lisinopril . BP markedly improved. Low salt diet recommende d. Check BMP at his next visit. Diabetes mellitus 53005355 Patient with new-onset diabetes. Symptoms of polydipsia [...] ratio. SHUN-I started previously . Skin lesion 50994489 Inv olving the left posterior upper arm. Sutures removed last week. Hypertroph ic scar and contact dermatitis noted at the time. Now healing well. No fluctuance . Consider General Surgery referral if not healed completely . Chest pain 32040890 His symptoms of left-sided chest , SOB [...] symptoms. Indication s for UC/ER use discussed. [id number] Robles Isaac MD , [facility], [address] [place] [address] 11/27/2013 09:03:19 11/27/2013 09:47:48 Diabetes mellitus 21374213 Patient with recent diagnosis of diabetes. Symptoms [...] elevated MA/Cr ratio. SHUN-I started. Essential hypertension 17223461 Previously was not engaged in care. Tolerating Chlorthali done. Erroneousl y stopped Lisinopril . Will resume. No intoleranc e issues. BP markedly improved. Low salt diet recommende d. Epidermoid cyst of skin 101492475 Non-infect ed, left upper arm cyst removed at his previous visit due to persistent pain. Patient with residual scarring. No current evidence of infection. [id number] Robles Isaac MD , [facility], [address] [place] [address] 02/19/2014 11:04:44 02/19/2014 12:04:40 Adult health examination 467318926 See Risk Assessment and Lifestyle Change Counseling section above. Tdap vaccine UTD. PNA vaccine administer ed today. Home/vehic le/sexual safety reviewed. Not sexually active. Colonoscop y scheduled 03/2014. Counseling 710335202 Benign ess ential hypertension 1869906 Previously was not engaged in care. Tolerating Chlorthali done and Lisinopril . BP markedly improved. Low salt diet recommende d. Mixed hyperlipidemia 949075548 Fair FLP with LDL 92. Would like better control given his underlying diabetes, but also struggles with polypharma cy. Low fat/choles terol diet and exercise recommende d. Diarrhea 19033083 Patien t with chronic diarrhea intermitte ntly. Recently evaluated by Dr. Burrows (GI). Scheduled to have a colonoscop y in 03/2014. Recent IgA mildly positive (other celiac markers negative). No BRBPR/boris na. No abdominal pain. Uncontroll ed type 2 diabetes mellitus 598558231 States home BS 140-200. Improved Hgb A1c [...] hydration discussed. Administra tion of pneumococcal vaccine [id number] Robles Isaac MD , [facility], [address] [place] [address] 04/09/2014 07:59:46 04/09/2014 08:49:22 Uncontrolled type 2 diabetes mellitus 861417406 States home BS 120-150. Overall improved Hgb [...] discussed. Ample oral hydration discussed. Essential hypertension 66778463 Previously was not engaged in care. Tolerating Chlorthali done. Erroneousl y stopped Lisinopril . Will resume. No intoleranc e issues. BP markedly improved. Will titrate up Lisinopril as needed. Low salt diet recommende smiley. [id number] Robles Isaac MD , [facility], [address] [place] [address] 07/07/2014 07:47:01 07/07/2014 08:23:26 Mixed hyperlipidemia 921407859 Patient with LDL of 150 (06/2014). However, his 10-year risk of OK is 7%. New AHA/ACC guideline discussed. Advised on low fat/choles terol diet and exercise. Influenza vaccine needed 7536317236 106 Uncontroll ed type 2 diabetes mellitus 476083340 States home BS 100-160. Overall improved Hgb [...] discussed. Ample oral hydration discussed. Essential hypertension 70538038 Previously was not engaged in care. Tolerating Chlorthali done and Lisinopril . No intoleranc e issues. BP markedly improved. Low salt diet recommende d. [id number] Robles Isaac MD , [facility], [address] [place] [address] 11/25/2015 08:22:18 11/25/2015 09:20:28 Benign essential hypertension 8284520 I10 Blood pressure elevated. Lost insurance in 2013. Has been off his medication s. No CP/SOB/CUEVAS . Recommende d to continue to work on diet, exercise, and lowering salt intake. Will resume Lisinopril (but will hold off on Chlorthali done). Check BMP. Mixed hyperlipidemia 267 400909 E78.2 Patient with previous LDL of 150 (06/2014). However, his 10-year risk of OK is 7%. New AHA/ACC guideline discussed. Advised on low fat/choles terol diet and exercise. Uncontrol ed type 2 diabetes mellitus 043855170 E11.65 Out of care for over 1 [...] oral hydration discussed. Unexplaine d weight loss 645853866 R63.4 Patient with 15 lbs weight loss since his last visit. Denies bleeding. Out of medication for over 1 year. Will continue to monitor. [id number] Robles Isaac MD , [facility], [address] [place] [address] 12/14/2015 10:17:02 12/15/2015 08:21:49 Benign essential hypertension 5184602 I10 Blood pressure improved. Lost insurance in 2013. Was off his medication s. No CP/SOB/CUEVAS . Recommende d to continue to work on diet, exercise, and lowering salt intake. Recently started Lisinopril (but will hold off on Chlorthali done). Mixed hyperlipidemia 267 882106 E78.2 Patient with previous LDL of 150 (06/2014). However, his 10-year risk of OK is 7%. New AHA/ACC guideline discussed. Advised on low fat/choles terol diet and exercise. Uncontroll ed type 2 diabetes mellitus 455322247 E11.65 Out of care for over 1 [...] medication s discussed. Ample oral hydration discussed. [id number] Robles Isaac MD , [facility], [address] [place] [address] 01/11/2016 08:21:26 01/11/2016 08:52:49 Benign essential hypertension 4342754 I10 Blood pressure elevated, but previously well [...] if persistent ly elevated. Mixed hyperlipidemia 267 663005 E78.2 Patient with previous LDL of 150 (06/2014). However, his 10-year risk of OK is 7%. New AHA/ACC guideline discussed. Advised on low fat/choles terol diet and exercise. Uncontroll ed type 2 diabetes mellitus 310832398 E11.65 Out of care for over 1 [...] hydration discussed. Right uppe r quadrant pain 590895731 R10.11 Patient with 1-week duration of RUQ abdominal pain. No clinical evidence of acute abdomen. Will check US to further evaluate. Advised to avoid high fat diet. Indication s for UC/ER use reviewed. [id number] Robles Isaac MD , [facility], [address] [place] [address] 01/20/2016 08:45:30 01/20/2016 09:28:43 Cholelithiasis without obstruction 50793596 K80.20 Patient with 1-week duration of RUQ abdominal pain. No clinical evidence of acute abdomen. Abdominal US revealed gallstones . Will refer to General Surgery for further evaluation . Advised to avoid high fat diet. Indication s for UC/ER use reviewed. Benign ess ential hypertension 1062283 I10 Blood pressure improved overall. Lost insurance in 2013. Was off his medication s. No CP/SOB/CUEVAS . Recommende d to continue to work on diet, exercise, and lowering salt intake. Recently started Lisinopril (but will hold off on Chlorthali done). Mixed hyperlipidemia 267 395455 E78.2 Patient with previous LDL of 150 (06/2014). However, his calculated 10-year risk of OK is 7%. New AHA/ACC guideline discussed. Advised on low fat/choles terol diet and exercise. Uncontroll ed type 2 diabetes mellitus 432723391 E11.65 Out of care for over 1 [...] medication s discussed. Ample oral hydration discussed. [id number] Robles Isaac MD , [facility], [address] [place] [address] 05/03/2016 08:21:49 05/03/2016 08:48:10 Neuropathy 085513711 G62.9 Patient reports bilateral inner thigh numbness and tingling. No weakness. No urine incontinen ce symptoms. Trial of Gabapentin discussed. Uncontroll ed type 2 diabetes mellitus 662337265 E11.65 Recently increased the Glipizide dose. Previously [...] oral hydration discussed. Benign ess ential hypertension 3150818 I10 Blood pressure improved overall. Lost insurance in 2013. Was off his medication s. No CP/SOB/CUEVAS . Recommende d to continue to work on diet, exercise, and lowering salt intake. Recently started Lisinopril (but will hold off on Chlorthali done). [id number] PRABHU Mauricio-CALEB , [facility], [address] [place] [address] 05/31/2016 15:55:20 05/31/2016 16:50:42 Active or passive immunization 565993462 Z23 Diarrhea 62610490 R19.7 possibly secondary to surgery, poor historian, symptoms worsening in last 2 weeks. labs as ordered below. advised follow up within 4-7 days. Dysuria 97913960 R30.0 UA labs consistent with poorly controlled DM. culture pending. follow up with PCP, if symptoms worsen be seen. Uncontroll ed type 2 diabetes mellitus [id number] E11.65 reviewed importance of blood sugar control. pt to follow up with pcp. [id number] BHARAT Mauricio , [facility], [address] [place] [address] 06/06/2016 09:54:11 06/06/2016 10:24:25 Diarrhea [id number] R19.7 possible s/e of metformin, change ir to ER, follow up in 2 weeks. Uncontroll ed type 2 diabetes mellitus [id number] E11.65 possible metformin contributi ng to diarrhea, change to ER. monitor diarrhea, follow up in 2 weeks for disease management re diarrhea and blood sugar. Pain of sh oulder region [id number] M25.512 subscapula r pain consistent with muscle strain. continue with supportive measures. [id number] BHARAT Mauricio , [facility], [address] [place] [address] 06/22/2016 11:10:57 06/24/2016 09:39:47 Shoulder joint pain [id number] M25.519 right sub scapular muscle spasm, pt notes weakness in right shoulder suggestive of rotator cuff involvemen t, but no focal weakness on exam , muscle tension noted. refer for PT, apply heat, follow up for failure to resolve. Diabetes mellitus [id number] E11.9 fasting sugar elevated, referral to DNE consider victoza or insulin. [id number] Julieta Barrett RN, BSN, [facility] , [facility] [address] [place] [address] 07/04/2016 07:51:58 07/08/2016 09:50:09 Uncontrolled type 2 diabetes mellitus [id number] E11.65 Met with Greg today for Type 2 diabetes, kindly referred by Kyra Mauro NP. Greg is accompanie d by his daughter, who helps to translate for him. He is Irish speaking. His daughter reports she lives [...] Delong Member ID Guarantor Name 05/03/2016 1 [facility] [employer] TYPE II (HMO) [facility] [id number] 001 [facility] 05/31/2016 1 [facility] [employer] TYPE II (HMO) [facility] [id number] 001 [facility] 06/06/2016 1 [facility] [employer] TYPE II (HMO) [facility] [id number] 001 [facility] 06/22/2016 1 [facility] [employer] TYPE II (HMO) [facility] [id number] 001 [facility] 07/04/2016 1 [facility] [employer] TYPE II (HMO) [facility] [id number] 001 [facility] Notes Date Note Type Note Provider [...] undergone laparoscopic cholecystectomy in 02/2016. Went to [facility] ER 3 weeks ago due to CP. His CXR, CBC, Troponin and CMP all within normal, except for elevated BS. No recurring symptoms since. Robles Isaac MD [address] [place] [address], [phone], [facility] 05/03/2016 23:18:53 05/31/2016 text/html pt presents with [...] diarrhea worse. no fever. Kyra Mauro [address], [phone], [facility] 06/05/2016 16:26:27 06/06/2016 text/html back pain, start [...] 2013).notes diarrhea may be related to metformin. BHARAT Mauricio [address] [place] [address], [phone], [facility] 06/06/2016 10:22:13 06/22/2016 text/html pt has pain in b ack to front around shoulder pain is interfering with ability to sleep.pain lasts all day.feels as if the shoulder falls asleep and drops. Kyra Mauro [address], [phone], [facility] 06/22/2016 11:34:50 07/04/2016 text/html Diabetes Self Management History & IntakeReported bypatient.Patient HistoryPatient chief complaint today:Needs help interpreting blood sugars; has a family history of diabetes; Completed Diabetes Self-Assessment Form received, reviewed and sent for chart upload. 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 Intake Form) Julieta Barrett RN, BSN, [address], [phone], [facility] 07/04/2016 16:03:29
== END 2025-01-20 09:32 | disposition home or self-care (01) ==
PROVIDERS: PCP Internal Medicine; Referring Provider Internal Medicine; Visit Provider Nurse Practitioner Family
DX: R13.14 Dysphagia, pharyngoesophageal phase (principal); R10.13 Epigastric pain; K21.9 Gastro-esophageal reflux disease without esophagitis; R14.0 Abdominal distension (gaseous); K42.9 Umbilical hernia without obstruction or gangrene; K59.01 Slow transit constipation
CPT/HCPCS: 99214; G2211

== ENCOUNTER → 2025-01-20 09:00 | Outpatient (BNVA) | payer OTHER, SELFPAY | PROVIDERS: PCP Nurse Practitioner Family; Visit Provider Nurse Practitioner Family | DX: K21.9 Gastro-esophageal reflux disease without esophagitis (principal); R13.14 Dysphagia, pharyngoesophageal phase; R10.13 Epigastric pain; R14.0 Abdominal distension (gaseous); K42.9 Umbilical hernia without obstruction or gangrene; K59.01 Slow transit constipation | CPT/HCPCS: 99212 ==

== ENCOUNTER 2025-02-11 08:58 | Outpatient (REF) | payer OTHER, SELFPAY ==
--- OUTSIDE RECORDS SUMMARY | 2025-02-11 09:40 | XMS_ITS | Data Portability ---
Author Organization [place] - [facility], , [facility] Address [address] [place] [address] Care Team Providers Care Accounts Receivable Accountant Name Role Phone ERIC HELLER General Surgeon Assessment No assessment recorded. Plan of Treatment Reminders Order Date Submit Date Provider Last Modified By Organization Details Last Modified Time Details Appointments None recorded. Lab hepatic function panel, serum - add on. 2015 016 [facility], [address] [place] [address], [id number], 6 04:08:03 culture, urine 2015 016 [facility], [address] [place] [address], [id number], 6 04:07:56 Referral diabetes management referral - jordanian speaker with elevated blood sugar, likely needs injectables , please assist with next steps for blood glucose management. 2015 016 Not available 6 04:08:57 physical therapist referral - pt with right scapular pain and some right shoulder pain with movements. please assist with rehabilitat ion 2015 016 [facility], [address] [place] [address], [id number], 6 04:08:57 Procedures None recorded. Surgeries None recorded. Imaging None recorded. Medication Orders metformin ER 1,000 mg tablet,exte nded release 24hr (osmotic) 2015 016 [place] [address] ([facility]), [address] [place], [id number], 6 04:07:36 glipizide 10 mg tablet 2015 016 [place] [address] [facility] [address] [place], [id number], 6 04:06:44 metformin 1,000 mg tablet 2015 016 [place] [address] ([facility] [address] [place], [id number], 6 04:05:56 lisinopril 2.5 mg tablet 2015 016 [place] [address] ([facility] [address] [place], [id number], 6 04:06:25 gabapentin 300 mg capsule 2015 016 [place] [address] ([facility]), [address] [place], [id number], 6 04:06:27 Patient TargetsNo targets recorded. Patient Instructions Encounter Date Encounter Id Patient Instructions Last Modified By Organization Details Last Modified Time 05/03/2016 [id number] Spent 25 minutes of [id number] time, of which greater than 50% was in counseling. After a discussion of treatment options, which included consideration of best practices and patient preferences, the above treatment plan and objectives were adopted. [email or web address] Not available 05/03/2016 23:18:31 07/04/2016 [id number] -Start testing blood sugar more often, at [...] Kyra Mauro, Family Medicine, Encounter Date: 06/22/2016 jordanian speaker with elevate d blood sugar, likely needs injectables, please assist with next steps for blood glucose management. Referring Physician: Kyra Mauro, Family Medicine, Encounter Date: 06/22/2016 Results Created Date Observation Date Name Description Value Unit Range Abnormal Flag Note LastModifiedBy Organization Detail LastModifiedTime 04/12/20 16 04/12/2016 CBC w/ auto diff WBC 5.8 K/uL 3.4-11 .2 Not Available [address], [address], 04/12/2016 01:57:38 04/12/20 16 04/12/2016 CBC w/ auto diff RBC 4.71 M/uL 4.50-5 .50 Not Available [address], [address], 04/12/2016 01:57:38 04/12/20 16 04/12/2016 CBC w/ auto diff hemoglobin 13.8 g/dL 13.0-1 7.0 Not Available [address], [address], 04/12/2016 01:57:38 04/12/20 16 04/12/2016 CBC w/ auto diff hematocrit 38.1 % 40.0-5 1.0 low Not Available [address], [address], 04/12/2016 01:57:38 04/12/20 16 04/12/2016 CBC w/ auto diff MCV 80.9 fL 79.0-9 8.0 Not Available [address], [address], 04/12/2016 01:57:38 04/12/20 16 04/12/2016 CBC w/ auto diff MCH 29.3 pg 27.0-3 4.8 Not Available [address], [address], 04/12/2016 01:57:38 04/12/20 16 04/12/2016 CBC w/ auto diff MCHC 36.2 g/dL 31.5-3 6.0 high Not Available [address], [address], 04/12/2016 01:57:38 04/12/20 16 04/12/2016 CBC w/ auto diff RDW 12.9 % 10.8-1 4.6 Not Available [address], [address], 04/12/2016 01:57:38 04/12/20 16 04/12/2016 CBC w/ auto diff MPV 10.4 fL 9.4-12 .4 Not Available [address], [address], 04/12/2016 01:57:38 04/12/20 16 04/12/2016 CBC w/ auto diff platelet count 204 K/uL 130-40 0 Not Available [address], [address], 04/12/2016 01:57:38 04/12/20 16 04/12/2016 CBC w/ auto diff neutrophils 49.9 % 45.3-7 7.7 Not Available [address], [address], 04/12/2016 01:57:38 04/12/20 16 04/12/2016 CBC w/ auto diff lymphocytes 35.0 % 12.3-3 9.7 Not Available [address], [address], 04/12/2016 01:57:38 04/12/20 16 04/12/2016 CBC w/ auto diff monocytes 10.8 % 4.1-12 .8 Not Available [address], [address], 04/12/2016 01:57:38 04/12/20 16 04/12/2016 CBC w/ auto diff eosinophils 3.80 % 0.00-7 .20 Not Available [address], [address], 04/12/2016 01:57:38 04/12/20 16 04/12/2016 CBC w/ auto diff basophils 0.30 % 0.00-2 .80 Not Available [address], [address], 04/12/2016 01:57:38 04/12/20 16 04/12/2016 CBC w/ auto diff absolute neutrophil 2.9 K/uL 1.4-7. 7 Not Available [address], [address], 04/12/2016 01:57:38 04/12/2004/12/2016 CBC w/ auto diff absolute lymphocyte 2.0 K/uL 0.6-3. 2 Not Available [address], [address], 04/12/2016 01:57:38 04/12/2004/12/2016 CBC w/ auto diff absolute monocytes 0.6 K/uL 0.1-0. 6 Not Available [address], [address], 04/12/2016 01:57:38 04/12/2004/12/2016 CBC w/ auto diff absolute eosinophil 0.22 K/uL 0.01-0 .50 Not Available [address], [address], 04/12/2016 01:57:38 04/12/20 16 04/12/2016 CBC w/ auto diff absolute basophils 0.02 K/uL Not Available [address], [address], 04/12/2016 01:57:38 04/12/20 16 04/12/2016 CBC w/ auto diff immature granulocyte 0.20 % 0.00-0 .50 Not Available [address], [address], 04/12/2016 01:57:38 04/12/20 16 04/12/2016 CBC w/ auto diff absolute immature granulocyte 0.01 K/uL 0.00-0 .03 Not Available [address], [address], 04/12/2016 01:57:38 04/12/20 16 04/12/2016 tropo lenore T, serum troponin T <0.010 NG/mL 0.000- 0.030 Not Available [address], [address], 04/12/2016 02:21:34 04/12/20 16 04/12/2016 CMP, serum or plasm a glucose 289 mg/dL 70-99 high Not Available [address], [address], 04/12/2016 02:21:35 04/12/2004/12/2016 CMP, serum or plasm a BUN 10 mg/dL 6-19 Not Available [address], [address], 04/12/2016 02:21:35 04/12/20 16 04/12/2016 CMP, serum or plasm a creatinine 0.9 mg/dL 0.5-1. 5 Not Available [address], [address], 04/12/2016 02:21:35 04/12/20 16 04/12/2016 CMP, serum [...] ages of 17 and 70. Not Available [address], [address], 04/12/2016 02:21:35 04/12/2004/12/2016 CMP, serum or plasm a sodium 137 mEq/L 133-14 6 Not Available [address], [address], 04/12/2016 02:21:35 04/12/2004/12/2016 CMP, serum or plasm a potassium 4.1 mEq/L 3.3-5. 1 Not Available [address], [address], 04/12/2016 02:21:35 04/12/2004/12/2016 CMP, serum or plasm a chloride 99 mEq/L 96-108 Not Available [address], [address], 04/12/2016 02:21:35 04/12/2004/12/2016 CMP, serum or plasm a CO2 26 mEq/L 21-35 Not Available [address], [address], 04/12/2016 02:21:35 04/12/2004/12/2016 CMP, serum or plasm a calcium 9.4 mg/dL 8.4-10 .3 Not Available [address], [address], 04/12/2016 02:21:35 04/12/2004/12/2016 CMP, serum or plasm a total bilirubin 0.6 mg/dL 0.0-1. 2 Not Available [address], [address], 04/12/2016 02:21:35 04/12/20 16 04/12/2016 CMP, serum or plasm a alkaline phosphatase 87 U/L 39-117 Not Available [address], [address], 04/12/2016 02:21:35 04/12/20 16 04/12/2016 CMP, serum or plasm a AST (SGOT) 13 U/L 0-37 Not Available [address], [address], 04/12/2016 02:21:35 04/12/20 16 04/12/2016 CMP, serum or plasm a ALT (SGPT) 19 U/L 0-40 Not Available [address], [address], 04/12/2016 02:21:35 04/12/2004/12/2016 CMP, serum or plasm a total protein 6.9 g/dL 6.5-8. 0 Not Available [address], [address], 04/12/2016 02:21:35 04/12/2004/12/2016 CMP, serum or plasm a albumin 4.0 g/dL 3.9-4. 8 Not Available [address], [address], 04/12/2016 02:21:35 04/12/2004/12/2016 CMP, serum or plasm a globulin 2.9 gm/dL 1.0-4. 8 Not Available [address], [address], 04/12/2016 02:21:35 04/12/2004/12/2016 CMP, serum or plasm a A/G ratio 1.4 gm/dL 1.0-4. 8 Not Available [address], [address], 04/12/2016 02:21:35 04/12/2004/12/2016 CMP, serum or plasm a anion gap 16 mEq/L 10-20 Not Available [facility] [address] [facility], [place], [address], 04/12/2016 02:21:35 05/31/20 16 05/31/2016 POC UA glu UA 1+ abnormal Not Available [address], [address], 05/31/2016 16:34:04 05/31/20 16 05/31/2016 POC UA clarity UA Slight ly Cloudy Not Available [address], [address], 05/31/2016 16:34:04 05/31/20 16 05/31/2016 POC UA uro UA 1.0000 Not Available [address], [address], 05/31/2016 16:34:04 05/31/20 16 05/31/2016 POC UA ket UA Negati ve Not Available [address], [address], 05/31/2016 16:34:04 05/31/20 16 05/31/2016 POC UA pro UA Trace abnormal Not Available [address], [address], 05/31/2016 16:34:04 05/31/20 16 05/31/2016 POC UA nit UA Negati ve Not Available [address], [address], 05/31/2016 16:34:04 05/31/20 16 05/31/2016 POC UA neida UA Negati ve Not Available [address], [address], 05/31/2016 16:34:04 05/31/20 16 05/31/2016 POC UA pH UA 6.0000 Not Available [address], [address], 05/31/2016 16:34:04 05/31/20 16 05/31/2016 POC UA SG UA >=1.03 00 Not Available [address], [address], 05/31/2016 16:34:04 05/31/20 16 05/31/2016 POC UA color UA Dark yellow Not Available [address], [address], 05/31/2016 16:34:04 05/31/20 16 05/31/2016 POC UA blo UA Negati ve Not Available [address], [address], 05/31/2016 16:34:04 05/31/20 16 05/31/2016 POC UA lisa UA Negati ve Not Available [address], [address], 05/31/2016 16:34:04 05/31/20 16 06/02/2016 cultu re, urine culture, urine, routine CULTU RE, URINE , ROUTI NE MICRO NUMBE R: [id number] TEST STATU S: FINAL SPECI MEN SOURC E: URINE SPECI MEN QUALI TY: ADEQU ATE RESUL T: No Growt h Not Available [facility] [address] [place] [address], [address], 06/02/2016 00:43:22 06/02/20 16 06/02/2016 BMP, serum or plasm a glucose 218 mg/dL 70-100 high Not Available [address], [address], 06/02/2016 11:19:48 06/02/20 16 06/02/2016 BMP, serum or plasm a BUN 8 mg/dL 7-18 Not Available [address], [address], 06/02/2016 11:19:48 06/02/20 16 06/02/2016 BMP, serum or plasm a creatinine 0.9 mg/dL 0.8-1. 3 Not Available [address], [address], 06/02/2016 11:19:48 06/02/20 16 06/02/2016 BMP, serum or plasm a B/C 8.9 ratio Not Available [address], [address], 06/02/2016 11:19:48 06/02/20 16 06/02/2016 BMP, serum or plasm a GFR -non 92.4 mL/mi n Recom marychuy d GFR by the Natio nal Kidne y Found ation >60 mL/mi n/1.7 3m2 - Mariam l <60 mL/mi n/1.7 3m2 - Chron ic Kidne y Disea se <15 mL/mi n/1.7 3m2 - Kidne y Failu re Not Available [address], [address], 06/02/2016 11:19:48 06/02/20 16 06/02/2016 BMP, serum or plasm a GFR - if 111.9 mL/mi n For Afric an Ameri can patie nts: Resul ts Multi plied by 1.21 Not Available [address], [address], 06/02/2016 11:19:48 06/02/20 16 06/02/2016 BMP, serum or plasm a sodium 144 mmol/ L 136-14 5 Not Available [address], [address], 06/02/2016 11:19:48 06/02/20 16 06/02/2016 BMP, serum or plasm a potassium 4.5 mmol/ L 3.5-5. 1 Not Available [address], [address], 06/02/2016 11:19:48 06/02/20 16 06/02/2016 BMP, serum or plasm a chloride 105 mmol/ L 96-107 Not Available [address], [address], 06/02/2016 11:19:48 06/02/20 16 06/02/2016 BMP, serum or plasm a anion gap 10.1 5.0-15 .0 Not Available [address], [address], 06/02/2016 11:19:48 06/02/20 16 06/02/2016 BMP, serum or plasm a CO2 29 mmol/ L 21-32 Not Available [address], [address], 06/02/2016 11:19:48 06/02/20 16 06/02/2016 BMP, serum or plasm a calcium 9.3 mg/dL 8.5-10 .3 Not Available [address], [address], 06/02/2016 11:19:48 06/02/20 16 06/02/2016 lipid panel , serum cholesterol 184 mg/dL <200 mg/dl Jonathon able 200-2 39 mg/dl Borde rline High >240 mg/dl High Not Available [address], [address], 06/02/2016 11:19:49 06/02/20 16 06/02/2016 lipid panel , serum triglyceride s 116 mg/dL <150 mg/dL Mariam l 150-1 99 mg/dL Borde rline High 200-4 99 mg/dL High >500 mg/dL Very High Not Available [address], [address], 06/02/2016 11:19:49 06/02/20 16 06/02/2016 lipid panel , serum direct HDL 45 mg/dL Not Available [address], [address], 06/02/2016 11:19:49 06/02/20 16 06/02/2016 LDL, calcu [...] r is not mahin antoine. Not Available [address], [address], 06/02/2016 11:19:49 06/02/20 16 06/02/2016 HbA1c (hemo globi n A1c), blood hemoglobin A1C 7.7 % 4.8-6. 0 high Goal: <7% in Patie nts with Diabe brisa Not Available [address], [address], 06/02/2016 11:26:54 06/02/20 16 06/02/2016 HbA1c (hemo globi n A1c), blood estimated average glucose 174.3 mg/dL Not Available [address], [address], 06/02/2016 11:26:54 06/02/20 16 06/02/2016 micro album in, urine microalbumin 19.7 mg/L 1.3-20 .0 Not Available [address], [address], 06/02/2016 12:41:00 06/02/20 16 06/02/2016 micro album in, urine creatinine urine 201.4 mg/dL 30.0-1 25.0 high Not Available [address], [address], 06/02/2016 12:41:00 06/02/20 16 06/02/2016 micro album in, urine microalb/cre at ratio 9.8 mg/g_ creat 0.0-29 .0 Not Available [address], [place], [address], 06/02/2016 12:41:00 03/08/20 17 03/08/2017 urina lysis , refle x cultu re color Yellow Not Available [address], [address], 03/08/2017 21:57:08 03/08/20 17 03/08/2017 urina lysis , refle x cultu re appearance Clear Not Available [address], [address], 03/08/2017 21:57:08 03/08/20 17 03/08/2017 urina lysis , refle x cultu re specific gravity <=1.00 5 1.005- 1.030 Not Available [address], [address], 03/08/2017 21:57:08 03/08/20 17 03/08/2017 urina lysis , refle x cultu re pH 6.0 5.0-7. 0 Not Available [address], [address], 03/08/2017 21:57:08 03/08/20 17 03/08/2017 urina lysis , refle x cultu re protein Negati ve negati ve Not Available [address], [address], 03/08/2017 21:57:08 03/08/20 17 03/08/2017 urina lysis , refle x cultu re glucose 3+ negati ve abnormal Not Available [address], [address], 03/08/2017 21:57:08 03/08/20 17 03/08/2017 urina lysis , refle x cultu re ketones Negati ve negati ve Not Available [address], [address], 03/08/2017 21:57:08 03/08/20 17 03/08/2017 urina lysis , refle x cultu re bilirubin Negati ve negati ve Not Available [address], [address], 03/08/2017 21:57:08 03/08/20 17 03/08/2017 urina lysis , refle x cultu re blood Negati ve negati ve Not Available [address], [address], 03/08/2017 21:57:08 03/08/20 17 03/08/2017 urina lysis , refle x cultu re nitrite Negati ve negati ve Not Available [address], [address], 03/08/2017 21:57:08 03/08/20 17 03/08/2017 urina lysis , refle x cultu re leukocyte esterase Negati ve negati ve Not Available [address], [address], 03/08/2017 21:57:08 03/08/20 17 03/08/2017 CBC w/ auto diff WBC 5.6 K/uL 3.4-11 .2 Not Available [address], [address], 03/08/2017 21:57:30 03/08/20 17 03/08/2017 CBC w/ auto diff RBC 4.86 M/uL 4.50-5 .50 Not Available [address], [address], 03/08/2017 21:57:30 03/08/20 17 03/08/2017 CBC w/ auto diff hemoglobin 14.0 g/dL 13.0-1 7.0 Not Available [address], [address], 03/08/2017 21:57:30 03/08/20 17 03/08/2017 CBC w/ auto diff hematocrit 38.7 % 40.0-5 1.0 low Not Available [address], [address], 03/08/2017 21:57:30 03/08/20 17 03/08/2017 CBC w/ auto diff MCV 79.6 fL 79.0-9 8.0 Not Available [address], [address], 03/08/2017 21:57:30 03/08/20 17 03/08/2017 CBC w/ auto diff MCH 28.8 pg 27.0-3 4.8 Not Available [address], [address], 03/08/2017 21:57:30 03/08/20 17 03/08/2017 CBC w/ auto diff MCHC 36.2 g/dL 31.5-3 6.0 high Not Available [address], [address], 03/08/2017 21:57:30 03/08/20 17 03/08/2017 CBC w/ auto diff RDW 12.9 % 10.8-1 4.6 Not Available [address], [address], 03/08/2017 21:57:30 03/08/20 17 03/08/2017 CBC w/ auto diff MPV 10.8 fL 9.4-12 .4 Not Available [address], [address], 03/08/2017 21:57:30 03/08/2003/08/2017 CBC w/ auto diff platelet count 207 K/uL 130-40 0 Not Available [address], [address], 03/08/2017 21:57:30 03/08/2003/08/2017 CBC w/ auto diff neutrophils 50.8 % 45.3-7 7.7 Not Available [address], [address], 03/08/2017 21:57:30 03/08/20 17 03/08/2017 CBC w/ auto diff lymphocytes 32.9 % 12.3-3 9.7 Not Available [address], [address], 03/08/2017 21:57:30 03/08/20 17 03/08/2017 CBC w/ auto diff monocytes 13.2 % 4.1-12 .8 high Not Available [address], [address], 03/08/2017 21:57:30 03/08/20 17 03/08/2017 CBC w/ auto diff eosinophils 2.70 % 0.00-7 .20 Not Available [address], [address], 03/08/2017 21:57:30 03/08/20 17 03/08/2017 CBC w/ auto diff basophils 0.20 % 0.00-2 .80 Not Available [address], [address], 03/08/2017 21:57:30 03/08/20 17 03/08/2017 CBC w/ auto diff absolute neutrophil 2.9 K/uL 1.4-7. 7 Not Available [address], [address], 03/08/2017 21:57:30 03/08/20 17 03/08/2017 CBC w/ auto diff absolute lymphocyte 1.8 K/uL 0.6-3. 2 Not Available [address], [address], 03/08/2017 21:57:30 03/08/20 17 03/08/2017 CBC w/ auto diff absolute monocytes 0.7 K/uL 0.1-0. 6 high Not Available [address], [address], 03/08/2017 21:57:30 03/08/20 17 03/08/2017 CBC w/ auto diff absolute eosinophil 0.15 K/uL 0.01-0 .50 Not Available [address], [address], 03/08/2017 21:57:30 03/08/20 17 03/08/2017 CBC w/ auto diff absolute basophils 0.01 K/uL Not Available [address], [address], 03/08/2017 21:57:30 03/08/20 17 03/08/2017 CBC w/ auto diff immature granulocyte 0.20 % 0.00-0 .50 Not Available [address], 84149, 03/08/2017 21:57:30 03/08/20 17 03/08/2017 CBC w/ auto diff absolute immature granulocyte 0.01 K/uL 0.00-0 .03 Not Available [address], [address], 03/08/2017 21:57:30 03/08/2003/08/2017 CMP, serum or plasm a glucose 499 mg/dL 70-99 high Not Available [address], [address]269, 03/08/2017 22:21:58 03/08/2003/08/2017 CMP, serum or plasm a BUN 6 mg/dL 6-19 Not Available [address], [address], 03/08/2017 22:21:58 03/08/2003/08/2017 CMP, serum or plasm a creatinine 1.1 mg/dL 0.5-1. 5 Not Available [address], [address], 03/08/2017 22:21:58 03/08/2003/08/2017 CMP, serum or plasm [...] ages of 17 and 69. Not Available [address], [address], 03/08/2017 22:21:58 03/08/20 17 03/08/2017 CMP, serum or plasm a sodium 136 mEq/L 133-14 6 Not Available [address], [address]672, 03/08/2017 22:21:58 03/08/20 17 03/08/2017 CMP, serum or plasm a potassium 4.2 mEq/L 3.3-5. 2 Not Available [address], [address]50, 03/08/2017 22:21:58 03/08/2003/08/2017 CMP, serum or plasm a chloride 98 mEq/L 96-108 Not Available [address], [address], 03/08/2017 22:21:58 03/08/2003/08/2017 CMP, serum or plasm a CO2 27 mEq/L 21-35 Not Available [address], [address]16, 03/08/2017 22:21:58 03/08/2003/08/2017 CMP, serum or plasm a calcium 9.4 mg/dL 8.4-10 .3 Not Available [address], [address], 03/08/2017 22:21:58 03/08/2003/08/2017 CMP, serum or plasm a total bilirubin 0.4 mg/dL 0.0-1. 2 Not Available [address], 33259, 03/08/2017 22:21:58 03/08/2003/08/2017 CMP, serum or plasm a alkaline phosphatase 115 U/L 39-117 Not Available [address], [address], 03/08/2017 22:21:58 03/08/20 17 03/08/2017 CMP, serum or plasm a AST (SGOT) 11 U/L 0-37 Not Available [address], [address], 03/08/2017 22:21:58 03/08/20 17 03/08/2017 CMP, serum or plasm a ALT (SGPT) 14 U/L 0-40 Not Available [address], [address]36, 03/08/2017 22:21:58 03/08/20 17 03/08/2017 CMP, serum or plasm a total protein 7.4 g/dL 6.5-8. 0 Not Available [address], [address]8315, 03/08/2017 22:21:58 03/08/20 17 03/08/2017 CMP, serum or plasm a albumin 4.1 g/dL 3.9-4. 8 Not Available [address], [address], 03/08/2017 22:21:58 03/08/20 17 03/08/2017 CMP, serum or plasm a globulin 3.3 gm/dL 1.0-4. 8 Not Available [address], [address], 03/08/2017 22:21:58 03/08/20 17 03/08/2017 CMP, serum or plasm a A/G ratio 1.2 gm/dL 1.0-4. 8 Not Available [address], [address]56, 03/08/2017 22:21:58 03/08/20 17 03/08/2017 CMP, serum or plasm a anion gap 15 mEq/L 10-20 Not Available [address], 20922, 03/08/2017 22:21:58 03/08/20 17 03/08/2017 C react alfreda prote in, QN, serum or plasm a C-reactive protein 0.24 mg/dL 0.00-0 .50 Not Available [address], [address]91, 03/08/2017 22:21:58 03/08/20 17 03/08/2017 lipas e, serum or plasm a lipase 37 U/L 16-63 Not Available [address], [address], 03/08/2017 22:21:59 10/16/19 18 10/16/2017 urina lysis , refle x cultu re color Yellow yellow Not Available [facility] [address] [place] [address], [address], 10/16/2017 15:03:07 10/16/19 18 10/16/2017 urina lysis , refle x cultu re clarity Clear Not Available [facility] [address] [place] [address], [address], 10/16/2017 15:03:07 10/16/19 18 10/16/2017 urina lysis , refle x cultu re glucose 3+ negati ve abnormal Not Available [facility]) [address] [place] [address], [address], 10/16/2017 15:03:07 10/16/19 18 10/16/2017 urina lysis , refle x cultu re bili Negati ve negati ve Not Available [facility] [address] [place] [address], [address], 10/16/2017 15:03:07 10/16/19 18 10/16/2017 urina lysis , refle x cultu re ketones Negati ve negati ve Not Available [facility] [address] [place] [address], [address], 10/16/2017 15:03:07 10/16/19 18 10/16/2017 urina lysis , refle x cultu re specific gravity 1.010 1.005- 1.030 Not Available [facility] [address] [place], [address], 10/16/2017 15:03:07 10/16/19 18 10/16/2017 urina lysis , refle x cultu re blood Negati ve negati ve Not Available [facility] [address] [place], [address], 10/16/2017 15:03:07 10/16/19 18 10/16/2017 urina lysis , refle x cultu re pH 5.5 5.0-8. 0 Not Available [facility] [address] [place], [address], 10/16/2017 15:03:07 10/16/19 18 10/16/2017 urina lysis , refle x cultu re protein Negati ve negati ve Not Available [facility] [address] [place], [address], 10/16/2017 15:03:07 10/16/19 18 10/16/2017 urina lysis , refle x cultu re nitrite Negati ve negati ve Not Available [facility] [address] [place], [address], 10/16/2017 15:03:07 10/16/19 18 10/16/2017 urina lysis , refle x cultu re leukocyte esterase, ur Negati ve negati ve Not Available [facility] [address] [place], [address], 10/16/2017 15:03:07 10/16/19 18 10/16/2017 CBC w/ auto diff WBC 5.58 K/uL 3.40-1 1.20 Not Available [facility] [address] [place], [address], 10/16/2017 16:30:11 10/16/19 18 10/16/2017 CBC w/ auto diff RBC 4.75 M/uL 4.50-5 .50 Not Available [facility] [address] [place], [address], 10/16/2017 16:30:11 10/16/19 18 10/16/2017 CBC w/ auto diff HGB 13.7 g/dL 13.0-1 7.0 Not Available [facility] [address] [place], [id number], 10/16/2017 16:30:11 10/16/19 18 10/16/2017 CBC w/ auto diff HCT 39.0 % 40.0-5 1.0 low Not Available [facility] (Outpatient) [address] [place] [address], [id number], 10/16/2017 16:30:11 10/16/19 18 10/16/2017 CBC w/ auto diff plt 218 K/uL 130-40 0 Not Available [facility] (Outpatient) [address] [place] [address], [id number], 10/16/2017 16:30:11 10/16/19 18 10/16/2017 CBC w/ auto diff MCV 82.1 fL 79.0-9 8.0 Not Available [facility] (Outpatient) [address] [place] [address], [id number], 10/16/2017 16:30:11 10/16/19 18 10/16/2017 CBC w/ auto diff MCH 28.8 pg 27.0-3 4.8 Not Available [facility] (Outpatient) [address] [place] [address], [id number], 10/16/2017 16:30:11 10/16/19 18 10/16/2017 CBC w/ auto diff MCHC 35.1 g/dL 31.5-3 6.0 Not Available [facility] (Outpatient) [address] [place], [address], 10/16/2017 16:30:11 10/16/19 18 10/16/2017 CBC w/ auto diff RDW 12.8 % 10.8-1 4.6 Not Available [facility] (Outpatient) [address] [place] [address], [address], 10/16/2017 16:30:11 10/16/19 18 10/16/2017 CBC w/ auto diff MPV 10.9 fL 9.4-12 .4 Not Available [facility] (Outpatient) [address] [place] [address], [address], 10/16/2017 16:30:11 10/16/19 18 10/16/2017 CBC w/ auto diff NRBC 0.00 /100_ WBCs Not Available [facility] (Outpatient) [address] [place] [address], [address], 10/16/2017 16:30:11 10/16/19 18 10/16/2017 CBC w/ auto diff absolute NRBC 0.00 K/uL Not Available [facility] (Outpatient) [address] [place] [address], [address], 10/16/2017 16:30:11 10/16/19 18 10/16/2017 CBC w/ auto diff diff method Auto Not Available [facility] (Outpatient) [address] [place], [address], 10/16/2017 16:30:11 10/16/19 18 10/16/2017 CBC w/ auto diff neuts 54.2 % 45.30- 77.70 Not Available [facility] (Outpatient) [address] [place] [address], [address], 10/16/2017 16:30:11 10/16/19 18 10/16/2017 CBC w/ auto diff lymphs 32.1 % 12.30- 39.70 Not Available [facility] (Outpatient) [address] [place], [address], 10/16/2017 16:30:11 10/16/19 18 10/16/2017 CBC w/ auto diff monos 10.4 % 4.10-1 2.80 Not Available [facility] (Outpatient) [address] [place], [address], 10/16/2017 16:30:11 10/16/19 18 10/16/2017 CBC w/ auto diff eos 2.7 % 0-7.2 Not Available [facility] (Outpatient) [address] [place] [address], [address], 10/16/2017 16:30:11 10/16/19 18 10/16/2017 CBC w/ auto diff basos 0.4 % 0-2.80 Not Available [facility] (Outpatient) [address] [place], [address], 10/16/2017 16:30:11 10/16/19 18 10/16/2017 CBC w/ auto diff granulocytes , immature (%) 0.2 % 0.0-0. 9 Not Available [facility] (Outpatient) [address] [place], [address], 10/16/2017 16:30:11 10/16/19 18 10/16/2017 CBC w/ auto diff absolute neuts 3.03 K/uL 1.40-7 .70 Not Available [facility] (Outpatient) [address] [place], [address], 10/16/2017 16:30:11 10/16/19 18 10/16/2017 CBC w/ auto diff absolute lymphs 1.79 K/uL 0.60-3 .20 Not Available [facility] (Outpatient) [address] [place], [address], 10/16/2017 16:30:11 10/16/19 18 10/16/2017 CBC w/ auto diff absolute monos 0.58 K/uL 0.11-0 .59 Not Available [facility] (Outpatient) [address] [place], [address], 10/16/2017 16:30:11 10/16/19 18 10/16/2017 CBC w/ auto diff absolute eos 0.15 K/uL 0.01-0 .50 Not Available [facility] (Outpatient) [address] [place], [address], 10/16/2017 16:30:11 10/16/19 18 10/16/2017 CBC w/ auto diff absolute basos 0.02 K/uL 0.00-0 .08 Not Available [facility] (Outpatient) [address] [place], [address], 10/16/2017 16:30:11 10/16/19 18 10/16/2017 CBC w/ auto diff granulocytes , immature 0.01 K/uL 0.00-0 .05 Not Available [facility] (Outpatient) [address] [place], [address], 10/16/2017 16:30:11 10/16/19 18 10/16/2017 BMP, blood sodium 142 mmol/ L 133-14 6 Not Available [facility] (Outpatient) [address] [place], [address], 10/16/2017 16:53:22 10/16/19 18 10/16/2017 BMP, blood chloride 105 mmol/ L 96-108 Not Available [facility] (Outpatient) [address] [place], [address], 10/16/2017 16:53:22 10/16/19 18 10/16/2017 BMP, blood potassium 4.7 mmol/ L 3.3-5. 1 Not Available [facility] (Outpatient) [address] [place], [address], 10/16/2017 16:53:22 10/16/19 18 10/16/2017 BMP, blood CO2 29 mmol/ L 21-35 Not Available [facility] (Outpatient) [address] [place] [address], [address], 10/16/2017 16:53:22 10/16/19 18 10/16/2017 BMP, blood BUN 6 mg/dL 6-19 Not Available [facility] (Outpatient) [address] [place] [address], [address], 10/16/2017 16:53:22 10/16/19 18 10/16/2017 BMP, blood creatinine 0.90 mg/dL 0.5-1. 5 Not Available [facility] (Outpatient) [address] [place] [address], [address], 10/16/2017 16:53:22 10/16/19 18 10/16/2017 BMP, blood glucose 229 mg/dL 70-99 high Not Available [facility] (Outpatient) [address] [place] [address], [address], 10/16/2017 16:53:22 10/16/19 18 10/16/2017 BMP, blood calcium 9.6 mg/dL 8.4-10 .3 Not Available [facility] (Outpatient) [address] [place] [address], [address], 10/16/2017 16:53:22 10/16/19 18 10/16/2017 BMP, blood eGFR >60 mL/mi n/1.7 3m2 >60 Abnor mal if <60. If patie nt is Afric an-Am kwabena n, multi ply the resul t by 1.21. Not Available [facility] (Outpatient) [address] [place] [address], [address], 10/16/2017 16:53:22 10/16/19 18 10/16/2017 BMP, blood anion gap 13 mmol/ L 10-20 Not Available [facility] (Outpatient) [address] [place] [address], [address], 10/16/2017 16:53:22 10/16/19 18 10/16/2017 lipas e, serum or plasm a lipase 25 U/L 16-63 Not Available [facility] (Outpatient) [address] [place], [address], 10/16/2017 16:53:24 10/16/19 18 10/16/2017 lfts (hepa tic panel ) alkaline phosphatase 98 U/L 39-117 Not Available [facility] (Outpatient) [address] [place], [address], 10/16/2017 16:53:26 10/16/19 18 10/16/2017 lfts (hepa tic panel ) total bilirubin 0.5 mg/dL 0-1.2 Not Available [facility] (Outpatient) [address] [place] [address], [address], 10/16/2017 16:53:26 10/16/19 18 10/16/2017 lfts (hepa tic panel ) direct bilirubin <0.2 mg/dL 0-0.3 Not Available [facility] (Outpatient) [address] [place], [address], 10/16/2017 16:53:26 10/16/19 18 10/16/2017 lfts (hepa tic panel ) bilirubin (indirect) NOT CALCUL ATED mg/dL 0-1.5 Not Available [facility] (Outpatient) [address] [place] [address], [address], 10/16/2017 16:53:26 10/16/19 18 10/16/2017 lfts (hepa tic panel ) AST 14 U/L 0-37 Not Available [facility] (Outpatient) [address] [place] [address], [address], 10/16/2017 16:53:26 10/16/19 18 10/16/2017 lfts (hepa tic panel ) ALT 16 U/L 0-40 Not Available [facility] (Outpatient) [address] [place] [address], [address], 10/16/2017 16:53:26 10/16/19 18 10/16/2017 lfts (hepa tic panel ) total protein 7.4 g/dL 6.5-8. 0 Not Available [facility] (Outpatient) [address] [place], [address], 10/16/2017 16:53:26 10/16/19 18 10/16/2017 lfts (hepa tic panel ) albumin 4.3 g/dL 3.9-4. 8 Not Available [facility] (Outpatient) [address] [place], [address], 10/16/2017 16:53:26 10/16/19 18 10/16/2017 lfts (hepa tic panel ) globulin 3.1 g/dL 1-4.8 Not Available [facility] (Outpatient) [address] [place], [address], 10/16/2017 16:53:26 10/16/19 18 10/16/2017 lfts (hepa tic panel ) A/G ratio 1.39 ratio 1.00-4 .80 Not Available [facility] (Outpatient) [address] [place], [address], 10/16/2017 16:53:26 04/12/20 16 04/12/2016 XR, chest , 2 view No observ ation record ed. [email or web address] [facility] [address] [place], [address], 04/18/2016 07:51:26 06/16/20 16 04/12/2016 chest 2 [...] DORIAN MON MD 2015 06:35 AM [email or web address] [facility] [address] [facility], [place], [address], 06/17/2016 10:45:13 03/09/20 17 03/09/2017 CT, abdom [...] Initia l report render ed by [facility]. POS - CDHRAD BOARDW S7 Electr onical ly Signed by: MO CERON on 017 10:12 AM Techno logist : NINI MONICA KEVIN Transc ribed by: Yuli allen, PS360 Result s 2016 10:04 AM Electr onical ly Signed By: MO CERON MD 2016 10:12 AM [facility] [address] [place] [address], [address], 03/13/2017 13:11:35 10/17/19 18 10/16/2017 xr abdom [...] P.S. LQP X 7 MONTHS ROBLESSindhu ISAAC [facility] [address] [place] [address], [address], 10/17/2017 08:11:32 Result Notes None recorded. Problems Name Problem SNOMED Code Status Onset Date Resolution Date Notes Provider Name and Address Organization Details Recorded Time Essential hypertensio n 65893553 Completed 01/20/2016 Robles Isaac MD [address] [place], [place] [address], [address], [facility] 6 23:10:47 Diabetes mellitus 15561701 Completed 01/20/2016 Robles Isaac MD [address] [place], [place] [address], [address], [facility] 6 23:10:50 Skin lesion 73916526 Completed 01/20/2016 Robles hendrickson MD [address] [place], [place] [address], [address], [facility] 6 23:10:54 Benign essential hypertensio n 3290512 Active Robles Isaac MD [address] [place], [place] [address], [address], [facility] 6 08:53:56 Mixed hyperlipide muna 500243107 Active Robles Isaac MD [address] [place], [place] [address], [address], [facility] 6 08:53:56 Uncontrolle d type 2 diabetes mellitus 540623592 Active Robles Isaac MD [address] [place], [place] [address], [address], [facility] 6 08:53:56 Problem Notes None recorded. Procedures Surgical History Date Name Laterality Status Provider Name and Address Organization Details Recorded Time 6 POC Urinalysis Testing completed [facility] 05/31/2016 16:24:56 4 Excision completed Robles Isaac MD [address] [place] [address], [address], [facility] 10/15/2013 11:15:56 Imaging Results None recorded. Procedure Notes None recorded. Medical Equipment None [...] Available Not Available No t Available [employer] [facility] kit active Not Available Not Available Not Available Vitals Date Recorded Body height Body weight Body mass index (BMI) Systolic blood pressure Diastolic blood pressure Provider Name and Address Organization Details Last Updated DateTime 05/03/2016 158.115 cm 53501.45 g 27.4 kg/m2 144 mm[Hg] 74 mm[Hg] Alessandra Orellana [facility] 6 08:30:54 Date Recorded Body height Heart rate Oxygen saturation Oxygen saturation in Arterial blood by Pulse oximetry Systolic blood pressure Diastolic blood pressure Provider Name and Address Organization Details Last Updated DateTime 6 158.115 cm 85 /min 98 % 98 % 142 mm[Hg] 88 mm[Hg] Yocasta Brownlee [facility] 6 16:06:44 Date Recorded Body height Systolic blood pressure Diastolic blood pressure Provider Name and Address Organization Details Last Updated DateTime 06/06/2016 158.115 cm 142 mm[Hg] 72 mm[Hg] [facility] 06/06/2016 09:58:35 Date Recorded Body height Body weight Body mass index (BMI) Systolic blood pressure Diastolic blood pressure Provider Name and Address Organization Details Last Updated DateTime 06/22/2016 158.115 cm 86855.26 g 27.3 kg/m2 150 mm[Hg] 80 mm[Hg] [facility] 11:20:12 Social History Question Answer Notes LastModified by Organizat ion Details LastModified Time Tobacco Smoking Status [facility] 10:35:52 Are You Blind Or Do [...] Smoked Tobacco? 0 Information not available 12/14/2015 Do You Have Difficulty Walking Or Climbing Stairs? No Information not available 10/02/2013 Sex: Unknown Functional Status Question Answer Note LastModified by Organizat ion Details LastModified Time What is your level of alcohol consumption? None Information not available 10/02/2013 Do you have difficulty doing errands alone? No Information not available 10/02/2013 What is your occupation? Works at [employer]kim Information not available 10/02/2013 Do you [...] Recorded Time Tdap 4 completed Not Available [facility] 09/28/2019 02:16:08 Influenza, split virus, quadrivalent, PF 4 completed Not Available [facility] 09/28/2019 02:18:56 pneumococcal polysaccharide PPV23 4 completed Not Available [facility] 09/28/2019 02:14:36 Influenza, split virus, trivalent, PF 4 completed Not Available [facility] 09/28/2019 02:19:21 Influenza, split virus, quadrivalent, PF 6 completed Not Available [facility] 09/28/2019 02:33:00 Past Encounters Encounter ID Performer Location Encounter Start Date Encounter Closed Date Diagnosis/Indication Diagnosis SNOMED-CT Code Diagnosis ICD10 Code Diagnosis Note [id number] Robles Isaac MD , [facility], [address] [place] [address] 10/02/2013 10:13:34 10/02/2013 11:26:17 Essential hypertension 73130378 Elevated BP. Previously not engaged in care. Low salt diet recommende d. Start Chlorthali done. Will add SHUN-I once renal function establishe d. Follow up in 1 week. Advised to get fasting labwork tomorrow. Diabetes mellitus 48751893 Patient with new-onset diabetes. Symptoms of polydipsia [...] week. Screening for malignant neoplasm of colon 020749243 Skin lesion 35233968 Inv olving the left posterior upper arm. Likely epidermoid cyst. Schedule for an excision. No clinical evidence of cellulitis or acute abscess. Influenza vaccine needed [id number] 106 Administra tion of diphtheria, pertussis, and tetanus vaccine 731792501 [id number] Robles Isaac MD , [facility], [address] [place] [address] 10/09/2013 09:59:46 10/09/2013 13:05:30 Essential hypertension 17688753 Previously not engaged in care. Tolerating Chlorthali done. BP improved. Low salt diet recommende d. Will add Lisinopril 2.5mg po daily. Repeat BMP at his next visit. Diabetes mellitus 52094450 Patient with new-onset diabetes. Symptoms of polydipsia [...] start SHUN-I. Follow up in 1 week. [id number] Robles Isaac MD , [facility], [address] [place] [address] 10/15/2013 10:06:38 10/15/2013 13:08:04 Diabetes mellitus 40190137 Patient with new-onset diabetes. Symptoms of polydipsia [...] in 1 week. Epidermoid cyst of skin 159009387 Non-infect ed, left upper arm cyst removed [...] week for wound check and suture removal. [id number] Robles Isaac MD , [facility], [address] [place] [address] 10/23/2013 14:35:31 10/23/2013 15:12:07 Chest pain 73189671 His symptoms of left-sided chest pain and [...] s for UC/ER use discussed. Skin lesion 31554265 Inv olving the left posterior upper arm. Sutures removed. Hypertroph ic scar and contact dermatitis noted. Purulent discharge expressed with suture removal. Wound care discussed. Gauze applied. Follow up early next week for a follow up. Consider General Surgery referral if not healed completely . [id number] Robles Isaac MD , [facility], [address] [place] [address] 10/30/2013 08:21:52 10/30/2013 08:54:16 Essential hypertension 25602969 Previously was not engaged in care. Tolerating Chlorthali done and Lisinopril . BP markedly improved. Low salt diet recommende d. Check BMP at his next visit. Diabetes mellitus 52201984 Patient with new-onset diabetes. Symptoms of polydipsia [...] ratio. SHUN-I started previously . Skin lesion 28792791 Inv olving the left posterior upper arm. Sutures removed last week. Hypertroph ic scar and contact dermatitis noted at the time. Now healing well. No fluctuance . Consider General Surgery referral if not healed completely . Chest pain 99491633 His symptoms of left-sided chest , SOB [...] symptoms. Indication s for UC/ER use discussed. [id number] Robles Isaac MD , [facility], [address] [place] [address] 11/27/2013 09:03:19 11/27/2013 09:47:48 Diabetes mellitus 85026348 Patient with recent diagnosis of diabetes. Symptoms [...] elevated MA/Cr ratio. SHUN-I started. Essential hypertension 35276011 Previously was not engaged in care. Tolerating Chlorthali done. Erroneousl y stopped Lisinopril . Will resume. No intoleranc e issues. BP markedly improved. Low salt diet recommende d. Epidermoid cyst of skin 081978449 Non-infect ed, left upper arm cyst removed at his previous visit due to persistent pain. Patient with residual scarring. No current evidence of infection. [id number] Robles Isaac MD , [facility], [address] [place] [address] 02/19/2014 11:04:44 02/19/2014 12:04:40 Adult health examination 350394433 See Risk Assessment and Lifestyle Change Counseling section above. Tdap vaccine UTD. PNA vaccine administer ed today. Home/vehic le/sexual safety reviewed. Not sexually active. Colonoscop y scheduled 03/2014. Counseling 669925319 Benign ess ential hypertension 6131017 Previously was not engaged in care. Tolerating Chlorthali done and Lisinopril . BP markedly improved. Low salt diet recommende d. Mixed hyperlipidemia 839639775 Fair FLP with LDL 92. Would like better control given his underlying diabetes, but also struggles with polypharma cy. Low fat/choles terol diet and exercise recommende d. Diarrhea 40331532 Patien t with chronic diarrhea intermitte ntly. Recently evaluated by Dr. Burrows (GI). Scheduled to have a colonoscop y in 03/2014. Recent IgA mildly positive (other celiac markers negative). No BRBPR/boris na. No abdominal pain. Uncontroll ed type 2 diabetes mellitus 355048250 States home BS 140-200. Improved Hgb A1c [...] hydration discussed. Administra tion of pneumococcal vaccine [id number] Robles Isaac MD FP, [facility], [address] [place] [address] 04/09/2014 07:59:46 04/09/2014 08:49:22 Uncontrolled type 2 diabetes mellitus 135303809 States home BS 120-150. Overall improved Hgb [...] discussed. Ample oral hydration discussed. Essential hypertension 85267386 Previously was not engaged in care. Tolerating Chlorthali done. Erroneousl y stopped Lisinopril . Will resume. No intoleranc e issues. BP markedly improved. Will titrate up Lisinopril as needed. Low salt diet recommende d. [id number] Robles Isaac MD , [facility], [address] [place] [address] 07/07/2014 07:47:01 07/07/2014 08:23:26 Mixed hyperlipidemia 434042161 Patient with LDL of 150 (06/2014). However, his 10-year risk of WI is 7%. New AHA/ACC guideline discussed. Advised on low fat/choles terol diet and exercise. Influenza vaccine needed [id number] 106 Uncontroll ed type 2 diabetes mellitus 663927991 States home BS 100-160. Overall improved Hgb [...] discussed. Ample oral hydration discussed. Essential hypertension 69799192 Previously was not engaged in care. Tolerating Chlorthali done and Lisinopril . No intoleranc e issues. BP markedly improved. Low salt diet recommende d. [id number] Robles Isaac MD , [facility], [address] [place] [address] 11/25/2015 08:22:18 11/25/2015 09:20:28 Benign essential hypertension 9603595 I10 Blood pressure elevated. Lost insurance in 2013. Has been off his medication s. No CP/SOB/CUEVAS . Recommende d to continue to work on diet, exercise, and lowering salt intake. Will resume Lisinopril (but will hold off on Chlorthali done). Check BMP. Mixed hyperlipidemia 267 893628 E78.2 Patient with previous LDL of 150 (06/2014). However, his 10-year risk of WI is 7%. New AHA/ACC guideline discussed. Advised on low fat/choles terol diet and exercise. Uncontroll ed type 2 diabetes mellitus 380156831 E11.65 Out of care for over 1 [...] oral hydration discussed. Unexplaine d weight loss 981910424 R63.4 Patient with 15 lbs weight loss since his last visit. Denies bleeding. Out of medication for over 1 year. Will continue to monitor. [id number] Robles Isaac MD , [facility], [address] [place] [address] 12/14/2015 10:17:02 12/15/2015 08:21:49 Benign essential hypertension 9341119 I10 Blood pressure improved. Lost insurance in 2013. Was off his medication s. No CP/SOB/CUEVAS . Recommende d to continue to work on diet, exercise, and lowering salt intake. Recently started Lisinopril (but will hold off on Chlorthali done). Mixed hyperlipidemia 267 220069 E78.2 Patient with previous LDL of 150 (06/2014). However, his 10-year risk of WI is 7%. New AHA/ACC guideline discussed. Advised on low fat/choles terol diet and exercise. Uncontroll ed type 2 diabetes mellitus 706821228 E11.65 Out of care for over 1 [...] medication s discussed. Ample oral hydration discussed. [id number] MD GISSELL Huizar, [facility], [address] [place] [address] 01/11/2016 08:21:26 01/11/2016 08:52:49 Benign essential hypertension 2256340 I10 Blood pressure elevated, but previously well [...] if persistent ly elevated. Mixed hyperlipidemia 267 635262 E78.2 Patient with previous LDL of 150 (06/2014). However, his 10-year risk of WI is 7%. New AHA/ACC guideline discussed. Advised on low fat/choles terol diet and exercise. Uncontrol ed type 2 diabetes mellitus 813732598 E11.65 Out of care for over 1 [...] hydration discussed. Right uppe r quadrant pain 648929174 R10.11 Patient with 1-week duration of RUQ abdominal pain. No clinical evidence of acute abdomen. Will check US to further evaluate. Advised to avoid high fat diet. Indication s for UC/ER use reviewed. [id number] MD GISSELL Huizar, [facility], [address] [place] [address] 01/20/2016 08:45:30 01/20/2016 09:28:43 Cholelithiasis without obstruction 10321307 K80.20 Patient with 1-week duration of RUQ abdominal pain. No clinical evidence of acute abdomen. Abdominal US revealed gallstones . Will refer to General Surgery for further evaluation . Advised to avoid high fat diet. Indication s for UC/ER use reviewed. Benign ess ential hypertension 7815405 I10 Blood pressure improved overall. Lost insurance in 2013. Was off his medication s. No CP/SOB/CUEVAS . Recommende d to continue to work on diet, exercise, and lowering salt intake. Recently started Lisinopril (but will hold off on Chlorthali done). Mixed hyperlipidemia 267 990415 E78.2 Patient with previous LDL of 150 (06/2014). However, his calculated 10-year risk of WI is 7%. New AHA/ACC guideline discussed. Advised on low fat/choles terol diet and exercise. Uncontroll ed type 2 diabetes mellitus 138623877 E11.65 Out of care for over 1 [...] medication s discussed. Ample oral hydration discussed. [id number] Robles Isaac MD , [facility], [address] [place] [address] 05/03/2016 08:21:49 05/03/2016 08:48:10 Neuropathy 980102268 G62.9 Patient reports bilateral inner thigh numbness and tingling. No weakness. No urine incontinen ce symptoms. Trial of Gabapentin discussed. Uncontroll ed type 2 diabetes mellitus 327484695 E11.65 Recently increased the Glipizide dose. Previously [...] oral hydration discussed. Benign ess ential hypertension 1731920 I10 Blood pressure improved overall. Lost insurance in 2013. Was off his medication s. No CP/SOB/CUEVAS . Recommende d to continue to work on diet, exercise, and lowering salt intake. Recently started Lisinopril (but will hold off on Chlorthali done). [id number] BHARAT Mauricio, [facility], [address] [place] [address] 05/31/2016 15:55:20 05/31/2016 16:50:42 Active or passive immunization 150385276 Z23 Diarrhea 08845544 R19.7 possibly secondary to surgery, poor historian, symptoms worsening in last 2 weeks. labs as ordered below. advised follow up within 4-7 days. Dysuria 07145218 R30.0 UA labs consistent with poorly controlled DM. culture pending. follow up with PCP, if symptoms worsen be seen. Uncontroll ed type 2 diabetes mellitus 543567656 E11.65 reviewed importance of blood sugar control. pt to follow up with pcp. [id number] BHARAT Mauricio, [facility], OFFICE [address] [place] [address] 06/06/2016 09:54:11 06/06/2016 10:24:25 Diarrhea [id number] R19.7 possible s/e of metformin, change ir to ER, follow up in 2 weeks. Uncontroll ed type 2 diabetes mellitus [id number] E11.65 possible metformin contributi ng to diarrhea, change to ER. monitor diarrhea, follow up in 2 weeks for disease management re diarrhea and blood sugar. Pain of sh oulder region [id number] M25.512 subscapula r pain consistent with muscle strain. continue with supportive measures. [id number] BHARAT Mauricio, [facility], OFFICE [address] [place] [address] 06/22/2016 11:10:57 06/24/2016 09:39:47 Shoulder joint pain [id number] M25.519 right sub scapular muscle spasm, pt notes weakness in right shoulder suggestive of rotator cuff involvemen t, but no focal weakness on exam , muscle tension noted. refer for PT, apply heat, follow up for failure to resolve. Diabetes mellitus [id number] E11.9 fasting sugar elevated, referral to DNE consider victoza or insulin. [id number] Julieta Barrett RN, BSN, [facility] DM Education , [facility] [address] [place] [address] 07/04/2016 07:51:58 07/08/2016 09:50:09 Uncontrolled type 2 diabetes mellitus [id number] E11.65 Met with Greg today for Type [...] 05/03/2016 1 [facility] - DIRECT CONNECTORCARE TYPE II (HMO) [facility] [id number] 001 [facility] 05/31/2016 1 [facility] - DIRECT CONNECTORCARE TYPE II (HMO) [facility] [id number] 001 [facility] 06/06/2016 1 [facility] - DIRECT CONNECTORCARE TYPE II (HMO) [facility] [id number] 001 [facility] 06/22/2016 1 [facility] - DIRECT CONNECTORCARE TYPE II (HMO) [facility] [id number] 001 [facility] 07/04/2016 1 [facility] - DIRECT CONNECTORCARE TYPE II (HMO) [facility] [id number] 001 [facility] Notes Date Note Type Note Provider Name [...] undergone laparoscopic cholecystectomy in 02/2016. Went to [facility] ER 3 weeks ago due to CP. His CXR, CBC, Troponin and CMP all within normal, except for elevated BS. No recurring symptoms since. Robles Isaac MD [address] [place] [address], [phone], [facility] 05/03/2016 23:18:53 05/31/2016 text/html pt [...] diarrhea worse. no fever. Kyra Mauro, [facility] [address] [place], [address], [facility] 06/05/2016 16:26:27 06/06/2016 text/html back [...] may be related to metformin. Kyra Mauro, [address], [address], [facility] 06/06/2016 10:22:13 06/22/2016 text/html pt has pain in b ack to front around shoulder pain is interfering with ability to sleep.pain lasts all day.feels as if the shoulder falls asleep and drops. Kyra Mauro, [address], [address], [facility] 06/22/2016 11:34:50 07/04/2016 text/html Diabetes Self Management History & IntakeReported bypatient.Patient HistoryPatient chief complaint today:Needs help interpreting blood sugars; has a family history of diabetes; Completed Diabetes Self-Assessment Form received, reviewed and sent for chart upload. 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 Intake Form) Julieta Barrett RN, BSN, [address], [address], [facility] 07/04/2016 16:03:29
[2025-02-11 10:55] LABS: Alanine Aminotransferase 15 U/L (0-40); Albumin Level 3.8 g/dL (3.5-5.0); Alkaline Phosphatase 81 U/L (39-117); Anion Gap 9 (12-20); Aspartate Amino Transferase 19 U/L (5-37); Bilirubin Total 0.4 mg/dL (0.0-1.0); Blood Urea Nitrogen 11 mg/dL (9-16); Calcium 9.1 mg/dL (8.4-10.2); Carbon Dioxide 28 mmol/L (22-29); Chloride 114 mmol/L (96-108); Cholesterol 95 mg/dL (<200); Estimated Glomerular Filt Rate 41; Glucose Random 125 mg/dL (60-115); HDL Cholesterol 39 mg/dL (>40); LDL Cholesterol Calculated 44 mg/dL (<100); Potassium 4.6 mmol/L (3.3-5.1); Sodium 146 mmol/L (135-145); Total Protein 6.9 g/dL (6.5-8.0); Triglycerides 63 mg/dL (<150)
[2025-02-11 11:47] LABS: Creatinine Urine 72.34 mg/dL; Microalbum/Creatinine Ratio Ur 55.2 ug/mg cr (<30)
== END 2025-02-11 08:59 | disposition home or self-care (01) ==
LOC: HO.LAB 08:58
PROVIDERS: PCP Internal Medicine; Visit Provider Internal Medicine
DX: E11.65 Type 2 diabetes mellitus with hyperglycemia (principal)
CPT/HCPCS: 36415; 80053; 80061; 82043; 82570

== ENCOUNTER 2025-02-12 14:45 | Outpatient (AMB) | payer OTHER, SELFPAY ==
--- NOTE | 2025-02-12 14:45 | HO.NEPHOV_ITS ---
Vital Signs 02/12/25 14:46 Height 5 ft 3 in Weight 138 lb BMI 24.4 BP 110/52 L Blood Pressure Location Lt brachial Position Sitting Pulse 71 Pulse Source Pulse Oximeter Pulse Oximetry (%) 97 Oxygen Delivery Method Room Air Intake Visit Reasons: 4mon follow-up w/labs Confirmed Curb And Gutter Laborer Required: No Curb And Gutter Laborer Services: Curb And Gutter Laborer Offered & Declined (daughter will translate) Accompanied by: Daughter Allergies No Known Allergies Allergy (Verified 02/12/25 14:48) Medication List - Last Reviewed 02/12/25 by NANI Boswell amlodipine 10 mg PO DAILY aspirin 81 mg PO QAM atorvastatin 80 mg PO DAILY 90 days blood sugar diagnostic (Freestyle [employer] strips) As directed blood-glucose meter (Freestyle [employer] meter) As directed cholecalciferol (vitamin D3) 50 mcg PO DAILY dapagliflozin propanediol (Farxiga) 10 mg PO QAM dulaglutide (Trulicity) mg subcut QWEEK famotidine 20 mg PO BEDTIME lancets (FreeStyle Lancets) As directed lancets (Engage ResourcesTouch Delica Plus Lancet) As directed metoprolol succinate ER 50 mg PO DAILY nitroglycerin (Nitrostat) 0.4 mg sublingual Q5M PRN pantoprazole 40 mg PO QAM sacubitril-valsartan 97-103 mg (Entresto) 1 tab PO BID sennosides (Natural Senna Laxative) 17.2 mg (2 x 8.6 mg) PO BEDTIME ticagrelor (Brilinta) 90 mg PO BID HPI Comments Details: 64-year-old man with a history of longstanding diabetes mellitus and coronary disease referred for chronic kidney disease. Serum creatinine has been between 1.5-1.7 mg/dL. He was accompanied by his daughter. She was able to interpret and they did not want an spanish medical interpreter service. Greg has had diabetes mellitus for a long time. No urine studies are available. Urine protein excretion has not been quantitated. However he tells me that he sees lot of foaming during urination. He has heart failure with preserved ejection fraction he is currently on a Entresto. 02/12/25 64-year-old male presenting with concerns regarding kidney function stability and a recent chest pain incident. The patient's estimated glomerular filtration rate (eGFR) is 41%, consistent over the past year. He experienced chest pain that warranted a stress test at [facility] in mid-January, the preliminary results of which were normal. A recent bout with stomach flu has resolved, and urine function concerns have improved. The patient monitors his condition with medication, including Farxiga and Entresto, while also adjusting lifestyle factors such as hydration and salt intake. Overall, the patient has managed to maintain stable kidney function. [facility] Medical History (Reviewed 01/20/25 @ 09:09 by Anton Pat [facility]) Acute HFrEF (heart failure with reduced ejection fraction) Diabetes HLD (hyperlipidemia) HTN (hypertension) Surgical History S/P cardiac catheterization S/P cardiac cath H/O heart artery stent Hx of appendectomy Social History Household Members: None Housing: Apartment Do you presently have visiting nurse or other home services: No Patient Tobacco Use Status: Tobacco use Unknown Physical Exam Vital Signs: Last Vital Signs Pulse 71 02/12/25 14:46 BP 110/52 L 02/12/25 14:46 Pulse Ox 97 02/12/25 14:46 Oxygen Delivery Method Room Air 02/12/25 14:46 BMI result Body Mass Index 24.4 Const General: comfortable; No acute distress Orientation/consciousness: patient oriented x3 Eyes General: appearance normal, both eyes and all related structures Visual Lockett: normal visual lockett by confrontation Neck Neck: Yes supple and Yes no JVD Resp Effort & Inspection: normal respiratory effort and respiratory effort not decreased Cardio Palpation: no palpable S3 and no palpable S4 Heart sounds: no rubs GI Inspection: Yes normal to inspection Palpation (GI): Soft to palpation Percussion: Yes normal to percussion Auscultation: normal bowel sounds General: Yes no CVA tenderness Back/Spine/Pelvis Back: no CVA tenderness Skin General skin exam: no petechiae and no purpura Neuro General: patient oriented x3 and no focal motor deficits Extrem General: No clubbing and No edema Results Reviewed Nephrology Results: Sodium 146 mmol/L (135-145) H 02/11/25 Potassium 4.6 mmol/L (3.3-5.1) 02/11/25 Chloride 114 mmol/L (96-108) H 02/11/25 Carbon Dioxide 28 mmol/L (22-29) 02/11/25 BUN 11 mg/dL (9-16) 02/11/25 Creatinine 1.69 mg/dL (0.5-1.4) H 02/11/25 Calcium 9.1 mg/dL (8.4-10.2) 02/11/25 Urine Creatinine 72.34 mg/dL 02/11/25 Renal US 11/06/24 Assessment & Plan Assessment & Plan (1) CKD (chronic kidney disease): Code(s): N18.9 - Chronic kidney disease, unspecified Category: Medical (2) CAD (coronary artery disease): Code(s): I25.10 - Atherosclerotic heart disease of [place] coronary artery without angina pectoris Category: Medical (3) Ischemic cardiomyopathy: Code(s): I25.5 - Ischemic cardiomyopathy Category: Medical (4) Anemia: Code(s): D64.9 - Anemia, unspecified Category: Medical Plan Stage 3 chronic kidney disease in the setting of longstanding diabetes mellitus and coronary disease. Greg probably has diabetic kidney disease. No obstructive uropathy based on USG. Kidneys are echogenic. Glomerular nephritis and interstitial disease seem unlikely based on bland urine sediments No proteinuria The patient's chronic kidney disease is stable, with a consistent eGFR of about 41 ml/mt since December 2023 Recommendations Keep on low-sodium diet Increase PO fluid intake( serum Na 146 due to free water deficit) Maintain blood pressure less than 130/80 Continue to avoid nephrotoxic agents. including NSAIDS Agree with Madeline for cardiorenal protection Orders: Orders Basic Metabolic Panel 4 Months N18.9 - Chronic kidney disease, unspecified Complete Blood Count no Diff 4 Months N18.9 - Chronic kidney disease, unspecified Coding Level of Care Code Est Pt Level 4 (27379) Diagnoses CKD (chronic kidney disease) N18.9 CAD (coronary artery disease) I25.10 Ischemic cardiomyopathy I25.5 Anemia D64.9
[2025-02-12 14:46] VITALS: BP 110/52; PULSE 71; O2SAT 97; BMI 24.4
--- OUTSIDE RECORDS SUMMARY | 2025-02-12 14:49 | XMS_ITS | Data Portability ---
Author Organization [place] - [facility], , [facility] Address [address] [place] [address] Care Team Providers Care Central Supply Clerk Name Role Phone ERIC HELLER General Surgeon Assessment No assessment recorded. Plan of Treatment Reminders Order Date Submit Date Provider Last Modified By Organization Details Last Modified Time Details Appointments None recorded. Lab hepatic function panel, serum - add on. 2015 016 [facility], [address] [place] [address], [id number], 6 04:08:03 culture, urine 2015 016 [facility], [address] [place] [address], [address], 6 04:07:56 Referral diabetes management referral - palauan speaker with elevated blood sugar, likely needs injectables , please assist with next steps for blood glucose management. 2015 016 Not available 6 04:08:57 physical therapist referral - pt with right scapular pain and some right shoulder pain with movements. please assist with rehabilitat ion 2015 016 [facility], [address] [place] [address], [id number], 6 04:08:57 Procedures None recorded. Surgeries None recorded. Imaging None recorded. Medication Orders metformin ER 1,000 mg tablet,exte nded release 24hr (osmotic) 2015 016 [place] [address] ([facility]), [address] [place], [id number], 6 04:07:36 glipizide 10 mg tablet 2015 016 [place] [address] [facility] [address] [place], [id number], 6 04:06:44 metformin 1,000 mg tablet 2015 016 [place] [address] ([facility] [address] [place], [id number], 6 04:05:56 lisinopril 2.5 mg tablet 2015 016 [place] [address] ([facility] [address] [place], [id number], 6 04:06:25 gabapentin 300 mg capsule 2015 016 [place] [address] ([facility]), [address] [place], [id number], 6 04:06:27 Patient TargetsNo targets recorded. Patient Instructions Encounter Date Encounter Id Patient Instructions Last Modified By Organization Details Last Modified Time 05/03/2016 [id number] Spent 25 minutes of [id number] time, of which greater than 50% was in counseling. After a discussion of treatment options, which included consideration of best practices and patient preferences, the above treatment plan and objectives were adopted. [email or web address] Not available 05/03/2016 23:18:31 07/04/2016 [id number] -Start testing blood sugar more often, at [...] Kyra Mauro, Family Medicine, Encounter Date: 06/22/2016 palauan speaker with elevate d blood sugar, likely needs injectables, please assist with next steps for blood glucose management. Referring Physician: Kyra Mauro, Family Medicine, Encounter Date: 06/22/2016 Results Created Date Observation Date Name Description Value Unit Range Abnormal Flag Note LastModifiedBy Organization Detail LastModifiedTime 04/12/20 16 04/12/2016 CBC w/ auto diff WBC 5.8 K/uL 3.4-11 .2 Not Available [address], [address], 04/12/2016 01:57:38 04/12/20 16 04/12/2016 CBC w/ auto diff RBC 4.71 M/uL 4.50-5 .50 Not Available [address], [address], 04/12/2016 01:57:38 04/12/20 16 04/12/2016 CBC w/ auto diff hemoglobin 13.8 g/dL 13.0-1 7.0 Not Available [address], [address], 04/12/2016 01:57:38 04/12/20 16 04/12/2016 CBC w/ auto diff hematocrit 38.1 % 40.0-5 1.0 low Not Available [address], [address], 04/12/2016 01:57:38 04/12/20 16 04/12/2016 CBC w/ auto diff MCV 80.9 fL 79.0-9 8.0 Not Available [address], [address], 04/12/2016 01:57:38 04/12/20 16 04/12/2016 CBC w/ auto diff MCH 29.3 pg 27.0-3 4.8 Not Available [address], [address], 04/12/2016 01:57:38 04/12/20 16 04/12/2016 CBC w/ auto diff MCHC 36.2 g/dL 31.5-3 6.0 high Not Available [address], [address], 04/12/2016 01:57:38 04/12/20 16 04/12/2016 CBC w/ auto diff RDW 12.9 % 10.8-1 4.6 Not Available [address], [address], 04/12/2016 01:57:38 04/12/20 16 04/12/2016 CBC w/ auto diff MPV 10.4 fL 9.4-12 .4 Not Available [address], [address], 04/12/2016 01:57:38 04/12/20 16 04/12/2016 CBC w/ auto diff platelet count 204 K/uL 130-40 0 Not Available [address], [address], 04/12/2016 01:57:38 04/12/20 16 04/12/2016 CBC w/ auto diff neutrophils 49.9 % 45.3-7 7.7 Not Available [address], [address], 04/12/2016 01:57:38 04/12/20 16 04/12/2016 CBC w/ auto diff lymphocytes 35.0 % 12.3-3 9.7 Not Available [address], [address], 04/12/2016 01:57:38 04/12/20 16 04/12/2016 CBC w/ auto diff monocytes 10.8 % 4.1-12 .8 Not Available [address], [address], 04/12/2016 01:57:38 04/12/20 16 04/12/2016 CBC w/ auto diff eosinophils 3.80 % 0.00-7 .20 Not Available [address], [address], 04/12/2016 01:57:38 04/12/20 16 04/12/2016 CBC w/ auto diff basophils 0.30 % 0.00-2 .80 Not Available [address], [address], 04/12/2016 01:57:38 04/12/20 16 04/12/2016 CBC w/ auto diff absolute neutrophil 2.9 K/uL 1.4-7. 7 Not Available [address], [address], 04/12/2016 01:57:38 04/12/2004/12/2016 CBC w/ auto diff absolute lymphocyte 2.0 K/uL 0.6-3. 2 Not Available [address], [address], 04/12/2016 01:57:38 04/12/2004/12/2016 CBC w/ auto diff absolute monocytes 0.6 K/uL 0.1-0. 6 Not Available [address], [address], 04/12/2016 01:57:38 04/12/2004/12/2016 CBC w/ auto diff absolute eosinophil 0.22 K/uL 0.01-0 .50 Not Available [address], [address], 04/12/2016 01:57:38 04/12/20 16 04/12/2016 CBC w/ auto diff absolute basophils 0.02 K/uL Not Available [address], [address], 04/12/2016 01:57:38 04/12/20 16 04/12/2016 CBC w/ auto diff immature granulocyte 0.20 % 0.00-0 .50 Not Available [address], [address], 04/12/2016 01:57:38 04/12/20 16 04/12/2016 CBC w/ auto diff absolute immature granulocyte 0.01 K/uL 0.00-0 .03 Not Available [address], [address], 04/12/2016 01:57:38 04/12/20 16 04/12/2016 tropo lenore T, serum troponin T <0.010 NG/mL 0.000- 0.030 Not Available [address], [address], 04/12/2016 02:21:34 04/12/20 16 04/12/2016 CMP, serum or plasm a glucose 289 mg/dL 70-99 high Not Available [address], [address], 04/12/2016 02:21:35 04/12/2004/12/2016 CMP, serum or plasm a BUN 10 mg/dL 6-19 Not Available [address], [address], 04/12/2016 02:21:35 04/12/20 16 04/12/2016 CMP, serum or plasm a creatinine 0.9 mg/dL 0.5-1. 5 Not Available [address], [address], 04/12/2016 02:21:35 04/12/20 16 04/12/2016 CMP, serum [...] ages of 17 and 69. Not Available [address], [address], 04/12/2016 02:21:35 04/12/2004/12/2016 CMP, serum or plasm a sodium 137 mEq/L 133-14 6 Not Available [address], [address], 04/12/2016 02:21:35 04/12/2004/12/2016 CMP, serum or plasm a potassium 4.1 mEq/L 3.3-5. 1 Not Available [address], [address], 04/12/2016 02:21:35 04/12/2004/12/2016 CMP, serum or plasm a chloride 99 mEq/L 96-108 Not Available [address], [address], 04/12/2016 02:21:35 04/12/2004/12/2016 CMP, serum or plasm a CO2 26 mEq/L 21-35 Not Available [address], [address], 04/12/2016 02:21:35 04/12/2004/12/2016 CMP, serum or plasm a calcium 9.4 mg/dL 8.4-10 .3 Not Available [address], [address], 04/12/2016 02:21:35 04/12/2004/12/2016 CMP, serum or plasm a total bilirubin 0.6 mg/dL 0.0-1. 2 Not Available [address], [address], 04/12/2016 02:21:35 04/12/20 16 04/12/2016 CMP, serum or plasm a alkaline phosphatase 87 U/L 39-117 Not Available [address], [address], 04/12/2016 02:21:35 04/12/20 16 04/12/2016 CMP, serum or plasm a AST (SGOT) 13 U/L 0-37 Not Available [address], [address], 04/12/2016 02:21:35 04/12/20 16 04/12/2016 CMP, serum or plasm a ALT (SGPT) 19 U/L 0-40 Not Available [address], [address], 04/12/2016 02:21:35 04/12/2004/12/2016 CMP, serum or plasm a total protein 6.9 g/dL 6.5-8. 0 Not Available [address], [address], 04/12/2016 02:21:35 04/12/2004/12/2016 CMP, serum or plasm a albumin 4.0 g/dL 3.9-4. 8 Not Available [address], [address], 04/12/2016 02:21:35 04/12/2004/12/2016 CMP, serum or plasm a globulin 2.9 gm/dL 1.0-4. 8 Not Available [address], [address]65, 04/12/2016 02:21:35 04/12/2004/12/2016 CMP, serum or plasm a A/G ratio 1.4 gm/dL 1.0-4. 8 Not Available [address], [address], 04/12/2016 02:21:35 04/12/2004/12/2016 CMP, serum or plasm a anion gap 16 mEq/L 10-20 Not Available [facility] [address] [facility], [place], [address], 04/12/2016 02:21:35 05/31/20 16 05/31/2016 POC UA glu UA 1+ abnormal Not Available [address], [address], 05/31/2016 16:34:04 05/31/20 16 05/31/2016 POC UA clarity UA Slight ly Cloudy Not Available [address], [address], 05/31/2016 16:34:04 05/31/20 16 05/31/2016 POC UA uro UA 1.0000 Not Available [address], [address], 05/31/2016 16:34:04 05/31/20 16 05/31/2016 POC UA ket UA Negati ve Not Available [address], [address], 05/31/2016 16:34:04 05/31/20 16 05/31/2016 POC UA pro UA Trace abnormal Not Available [address], [address], 05/31/2016 16:34:04 05/31/20 16 05/31/2016 POC UA nit UA Negati ve Not Available [address], [address], 05/31/2016 16:34:04 05/31/20 16 05/31/2016 POC UA neida UA Negati ve Not Available [address], [address], 05/31/2016 16:34:04 05/31/20 16 05/31/2016 POC UA pH UA 6.0000 Not Available [address], [address], 05/31/2016 16:34:04 05/31/20 16 05/31/2016 POC UA SG UA >=1.03 00 Not Available [address], [address], 05/31/2016 16:34:04 05/31/20 16 05/31/2016 POC UA color UA Dark yellow Not Available [address], [address], 05/31/2016 16:34:04 05/31/20 16 05/31/2016 POC UA blo UA Negati ve Not Available [address], [address], 05/31/2016 16:34:04 05/31/20 16 05/31/2016 POC UA lisa UA Negati ve Not Available [address], [address], 05/31/2016 16:34:04 05/31/20 16 06/02/2016 cultu re, urine culture, urine, routine CULTU RE, URINE , ROUTI NE MICRO NUMBE R: [id number] TEST STATU S: FINAL SPECI MEN SOURC E: URINE SPECI MEN QUALI TY: ADEQU ATE RESUL T: No Growt h Not Available [facility] [address] [place] [address], [address], 06/02/2016 00:43:22 06/02/20 16 06/02/2016 BMP, serum or plasm a glucose 218 mg/dL 70-100 high Not Available [address], [address], 06/02/2016 11:19:48 06/02/20 16 06/02/2016 BMP, serum or plasm a BUN 8 mg/dL 7-18 Not Available [address], [address], 06/02/2016 11:19:48 06/02/20 16 06/02/2016 BMP, serum or plasm a creatinine 0.9 mg/dL 0.8-1. 3 Not Available [address], [address], 06/02/2016 11:19:48 06/02/20 16 06/02/2016 BMP, serum or plasm a B/C 8.9 ratio Not Available [address], [address], 06/02/2016 11:19:48 06/02/20 16 06/02/2016 BMP, serum or plasm a GFR -non 92.4 mL/mi n Recom marychuy d GFR by the Natio nal Kidne y Found ation >60 mL/mi n/1.7 3m2 - Mariam l <60 mL/mi n/1.7 3m2 - Chron ic Kidne y Disea se <15 mL/mi n/1.7 3m2 - Kidne y Failu re Not Available [address], [address], 06/02/2016 11:19:48 06/02/20 16 06/02/2016 BMP, serum or plasm a GFR - if 111.9 mL/mi n For Afric an Ameri can patie nts: Resul ts Multi plied by 1.21 Not Available [address], [address], 06/02/2016 11:19:48 06/02/20 16 06/02/2016 BMP, serum or plasm a sodium 144 mmol/ L 136-14 5 Not Available [address], [address], 06/02/2016 11:19:48 06/02/20 16 06/02/2016 BMP, serum or plasm a potassium 4.5 mmol/ L 3.5-5. 1 Not Available [address], [address], 06/02/2016 11:19:48 06/02/20 16 06/02/2016 BMP, serum or plasm a chloride 105 mmol/ L 96-107 Not Available [address], [address], 06/02/2016 11:19:48 06/02/20 16 06/02/2016 BMP, serum or plasm a anion gap 10.1 5.0-15 .0 Not Available [address], [address], 06/02/2016 11:19:48 06/02/20 16 06/02/2016 BMP, serum or plasm a CO2 29 mmol/ L 21-32 Not Available [address], [address], 06/02/2016 11:19:48 06/02/20 16 06/02/2016 BMP, serum or plasm a calcium 9.3 mg/dL 8.5-10 .3 Not Available [address], [address], 06/02/2016 11:19:48 06/02/20 16 06/02/2016 lipid panel , serum cholesterol 184 mg/dL <200 mg/dl Jonathon able 200-2 39 mg/dl Borde rline High >240 mg/dl High Not Available [address], [address], 06/02/2016 11:19:49 06/02/20 16 06/02/2016 lipid panel , serum triglyceride s 116 mg/dL <150 mg/dL Mariam l 150-1 99 mg/dL Borde rline High 200-4 99 mg/dL High >500 mg/dL Very High Not Available [address], [address], 06/02/2016 11:19:49 06/02/20 16 06/02/2016 lipid panel , serum direct HDL 45 mg/dL Not Available [address], [address], 06/02/2016 11:19:49 06/02/20 16 06/02/2016 LDL, calcu [...] r is not mahin antoine. Not Available [address], [address], 06/02/2016 11:19:49 06/02/20 16 06/02/2016 HbA1c (hemo globi n A1c), blood hemoglobin A1C 7.7 % 4.8-6. 0 high Goal: <7% in Patie nts with Diabe brisa Not Available [address], [address], 06/02/2016 11:26:54 06/02/20 16 06/02/2016 HbA1c (hemo globi n A1c), blood estimated average glucose 174.3 mg/dL Not Available [address], [address], 06/02/2016 11:26:54 06/02/20 16 06/02/2016 micro album in, urine microalbumin 19.7 mg/L 1.3-20 .0 Not Available [address], [address], 06/02/2016 12:41:00 06/02/20 16 06/02/2016 micro album in, urine creatinine urine 201.4 mg/dL 30.0-1 25.0 high Not Available [address], [address], 06/02/2016 12:41:00 06/02/20 16 06/02/2016 micro album in, urine microalb/cre at ratio 9.8 mg/g_ creat 0.0-29 .0 Not Available [address], [place], [address], 06/02/2016 12:41:00 03/08/20 17 03/08/2017 urina lysis , refle x cultu re color Yellow Not Available [address], [address], 03/08/2017 21:57:08 03/08/20 17 03/08/2017 urina lysis , refle x cultu re appearance Clear Not Available [address], [address], 03/08/2017 21:57:08 03/08/20 17 03/08/2017 urina lysis , refle x cultu re specific gravity <=1.00 5 1.005- 1.030 Not Available [address], [address], 03/08/2017 21:57:08 03/08/20 17 03/08/2017 urina lysis , refle x cultu re pH 6.0 5.0-7. 0 Not Available [address], [address], 03/08/2017 21:57:08 03/08/20 17 03/08/2017 urina lysis , refle x cultu re protein Negati ve negati ve Not Available [address], [address], 03/08/2017 21:57:08 03/08/20 17 03/08/2017 urina lysis , refle x cultu re glucose 3+ negati ve abnormal Not Available [address], [address], 03/08/2017 21:57:08 03/08/20 17 03/08/2017 urina lysis , refle x cultu re ketones Negati ve negati ve Not Available [address], [address], 03/08/2017 21:57:08 03/08/20 17 03/08/2017 urina lysis , refle x cultu re bilirubin Negati ve negati ve Not Available [address], [address], 03/08/2017 21:57:08 03/08/20 17 03/08/2017 urina lysis , refle x cultu re blood Negati ve negati ve Not Available [address], [address], 03/08/2017 21:57:08 03/08/20 17 03/08/2017 urina lysis , refle x cultu re nitrite Negati ve negati ve Not Available [address], [address], 03/08/2017 21:57:08 03/08/20 17 03/08/2017 urina lysis , refle x cultu re leukocyte esterase Negati ve negati ve Not Available [address], [address], 03/08/2017 21:57:08 03/08/20 17 03/08/2017 CBC w/ auto diff WBC 5.6 K/uL 3.4-11 .2 Not Available [address], [address], 03/08/2017 21:57:30 03/08/20 17 03/08/2017 CBC w/ auto diff RBC 4.86 M/uL 4.50-5 .50 Not Available [address], [address], 03/08/2017 21:57:30 03/08/20 17 03/08/2017 CBC w/ auto diff hemoglobin 14.0 g/dL 13.0-1 7.0 Not Available [address], [address], 03/08/2017 21:57:30 03/08/20 17 03/08/2017 CBC w/ auto diff hematocrit 38.7 % 40.0-5 1.0 low Not Available [address], [address], 03/08/2017 21:57:30 03/08/20 17 03/08/2017 CBC w/ auto diff MCV 79.6 fL 79.0-9 8.0 Not Available [address], [address]14, 03/08/2017 21:57:30 03/08/20 17 03/08/2017 CBC w/ auto diff MCH 28.8 pg 27.0-3 4.8 Not Available [address], [address], 03/08/2017 21:57:30 03/08/20 17 03/08/2017 CBC w/ auto diff MCHC 36.2 g/dL 31.5-3 6.0 high Not Available [address], [address], 03/08/2017 21:57:30 03/08/20 17 03/08/2017 CBC w/ auto diff RDW 12.9 % 10.8-1 4.6 Not Available [address], [address], 03/08/2017 21:57:30 03/08/20 17 03/08/2017 CBC w/ auto diff MPV 10.8 fL 9.4-12 .4 Not Available [address], [address]609, 03/08/2017 21:57:30 03/08/2003/08/2017 CBC w/ auto diff platelet count 207 K/uL 130-40 0 Not Available [address], [address], 03/08/2017 21:57:30 03/08/2003/08/2017 CBC w/ auto diff neutrophils 50.8 % 45.3-7 7.7 Not Available [address], [address], 03/08/2017 21:57:30 03/08/20 17 03/08/2017 CBC w/ auto diff lymphocytes 32.9 % 12.3-3 9.7 Not Available [address], 7[address]26, 03/08/2017 21:57:30 03/08/20 17 03/08/2017 CBC w/ auto diff monocytes 13.2 % 4.1-12 .8 high Not Available [address], [address], 03/08/2017 21:57:30 03/08/20 17 03/08/2017 CBC w/ auto diff eosinophils 2.70 % 0.00-7 .20 Not Available [address], [address]607, 03/08/2017 21:57:30 03/08/20 17 03/08/2017 CBC w/ auto diff basophils 0.20 % 0.00-2 .80 Not Available [address], [address], 03/08/2017 21:57:30 03/08/20 17 03/08/2017 CBC w/ auto diff absolute neutrophil 2.9 K/uL 1.4-7. 7 Not Available [address], [address]16, 03/08/2017 21:57:30 03/08/20 17 03/08/2017 CBC w/ auto diff absolute lymphocyte 1.8 K/uL 0.6-3. 2 Not Available [address], 47223, 03/08/2017 21:57:30 03/08/20 17 03/08/2017 CBC w/ auto diff absolute monocytes 0.7 K/uL 0.1-0. 6 high Not Available [address], [address], 03/08/2017 21:57:30 03/08/20 17 03/08/2017 CBC w/ auto diff absolute eosinophil 0.15 K/uL 0.01-0 .50 Not Available [address], 11053, 03/08/2017 21:57:30 03/08/20 17 03/08/2017 CBC w/ auto diff absolute basophils 0.01 K/uL Not Available [address], 61166, 03/08/2017 21:57:30 03/08/20 17 03/08/2017 CBC w/ auto diff immature granulocyte 0.20 % 0.00-0 .50 Not Available [address], [address]196, 03/08/2017 21:57:30 03/08/20 17 03/08/2017 CBC w/ auto diff absolute immature granulocyte 0.01 K/uL 0.00-0 .03 Not Available [address], 6[address]64, 03/08/2017 21:57:30 03/08/2003/08/2017 CMP, serum or plasm a glucose 499 mg/dL 70-99 high Not Available [address], 86366, 03/08/2017 22:21:58 03/08/2003/08/2017 CMP, serum or plasm a BUN 6 mg/dL 6-19 Not Available [address], [address]30, 03/08/2017 22:21:58 03/08/2003/08/2017 CMP, serum or plasm a creatinine 1.1 mg/dL 0.5-1. 5 Not Available [address], 91606, 03/08/2017 22:21:58 03/08/2003/08/2017 CMP, serum or plasm [...] ages of 17 and 69. Not Available [address], [address], 03/08/2017 22:21:58 03/08/20 17 03/08/2017 CMP, serum or plasm a sodium 136 mEq/L 133-14 6 Not Available [address], 46309, 03/08/2017 22:21:58 03/08/20 17 03/08/2017 CMP, serum or plasm a potassium 4.2 mEq/L 3.3-5. 2 Not Available [address], 90040, 03/08/2017 22:21:58 03/08/2003/08/2017 CMP, serum or plasm a chloride 98 mEq/L 96-108 Not Available [address], 67071, 03/08/2017 22:21:58 03/08/2003/08/2017 CMP, serum or plasm a CO2 27 mEq/L 21-35 Not Available [address], [address]238, 03/08/2017 22:21:58 03/08/2003/08/2017 CMP, serum or plasm a calcium 9.4 mg/dL 8.4-10 .3 Not Available [address], 85437, 03/08/2017 22:21:58 03/08/2003/08/2017 CMP, serum or plasm a total bilirubin 0.4 mg/dL 0.0-1. 2 Not Available [address], 86689, 03/08/2017 22:21:58 03/08/2003/08/2017 CMP, serum or plasm a alkaline phosphatase 115 U/L 39-117 Not Available [address], [address], 03/08/2017 22:21:58 03/08/20 17 03/08/2017 CMP, serum or plasm a AST (SGOT) 11 U/L 0-37 Not Available [address], 9[address]15, 03/08/2017 22:21:58 03/08/20 17 03/08/2017 CMP, serum or plasm a ALT (SGPT) 14 U/L 0-40 Not Available [address], [address]254, 03/08/2017 22:21:58 03/08/20 17 03/08/2017 CMP, serum or plasm a total protein 7.4 g/dL 6.5-8. 0 Not Available [address], 03284, 03/08/2017 22:21:58 03/08/20 17 03/08/2017 CMP, serum or plasm a albumin 4.1 g/dL 3.9-4. 8 Not Available [address], 60324, 03/08/2017 22:21:58 03/08/20 17 03/08/2017 CMP, serum or plasm a globulin 3.3 gm/dL 1.0-4. 8 Not Available [address], 58725, 03/08/2017 22:21:58 03/08/20 17 03/08/2017 CMP, serum or plasm a A/G ratio 1.2 gm/dL 1.0-4. 8 Not Available [address], 14047, 03/08/2017 22:21:58 03/08/20 17 03/08/2017 CMP, serum or plasm a anion gap 15 mEq/L 10-20 Not Available [address], 72753, 03/08/2017 22:21:58 03/08/20 17 03/08/2017 C react alfreda prote in, QN, serum or plasm a C-reactive protein 0.24 mg/dL 0.00-0 .50 Not Available [address], 5[address]20, 03/08/2017 22:21:58 03/08/20 17 03/08/2017 lipas e, serum or plasm a lipase 37 U/L 16-63 Not Available [address], 89891, 03/08/2017 22:21:59 10/16/19 18 10/16/2017 urina lysis , refle x cultu re color Yellow yellow Not Available [facility] [address] [place] [address], [address], 10/16/2017 15:03:07 10/16/19 18 10/16/2017 urina lysis , refle x cultu re clarity Clear Not Available [facility]) [address] [place] [address], [address], 10/16/2017 15:03:07 10/16/19 18 10/16/2017 urina lysis , refle x cultu re glucose 3+ negati ve abnormal Not Available [facility]) [address] [place] [address], [address], 10/16/2017 15:03:07 10/16/19 18 10/16/2017 urina lysis , refle x cultu re bili Negati ve negati ve Not Available [facility] [address] [place] [address], [address], 10/16/2017 15:03:07 10/16/19 18 10/16/2017 urina lysis , refle x cultu re ketones Negati ve negati ve Not Available [facility]) [address] [place] [address], [address], 10/16/2017 15:03:07 10/16/19 18 10/16/2017 urina lysis , refle x cultu re specific gravity 1.010 1.005- 1.030 Not Available [facility] [address] [place], [address], 10/16/2017 15:03:07 10/16/19 18 10/16/2017 urina lysis , refle x cultu re blood Negati ve negati ve Not Available [facility] [address] [place], [address], 10/16/2017 15:03:07 10/16/19 18 10/16/2017 urina lysis , refle x cultu re pH 5.5 5.0-8. 0 Not Available [facility] [address] [place], [address], 10/16/2017 15:03:07 10/16/19 18 10/16/2017 urina lysis , refle x cultu re protein Negati ve negati ve Not Available [facility] [address] [place], [address], 10/16/2017 15:03:07 10/16/19 18 10/16/2017 urina lysis , refle x cultu re nitrite Negati ve negati ve Not Available [facility] [address] [place], [address], 10/16/2017 15:03:07 10/16/19 18 10/16/2017 urina lysis , refle x cultu re leukocyte esterase, ur Negati ve negati ve Not Available [facility] [address] [place], [address], 10/16/2017 15:03:07 10/16/19 18 10/16/2017 CBC w/ auto diff WBC 5.58 K/uL 3.40-1 1.20 Not Available [facility] [address] [place], [address], 10/16/2017 16:30:11 10/16/19 18 10/16/2017 CBC w/ auto diff RBC 4.75 M/uL 4.50-5 .50 Not Available [facility] [address] [place], [address], 10/16/2017 16:30:11 10/16/19 18 10/16/2017 CBC w/ auto diff HGB 13.7 g/dL 13.0-1 7.0 Not Available [facility] [address] [place], [address], 10/16/2017 16:30:11 10/16/19 18 10/16/2017 CBC w/ auto diff HCT 39.0 % 40.0-5 1.0 low Not Available [facility] (Outpatient) [address] [place] [address], [id number], 10/16/2017 16:30:11 10/16/19 18 10/16/2017 CBC w/ auto diff plt 218 K/uL 130-40 0 Not Available [facility] (Outpatient) [address] [place] [address], [id number], 10/16/2017 16:30:11 10/16/19 18 10/16/2017 CBC w/ auto diff MCV 82.1 fL 79.0-9 8.0 Not Available [facility] (Outpatient) [address] [place] [address], [id number], 10/16/2017 16:30:11 10/16/19 18 10/16/2017 CBC w/ auto diff MCH 28.8 pg 27.0-3 4.8 Not Available [facility] (Outpatient) [address] [place] [address], [id number], 10/16/2017 16:30:11 10/16/19 18 10/16/2017 CBC w/ auto diff MCHC 35.1 g/dL 31.5-3 6.0 Not Available [facility] (Outpatient) [address] [place], [address], 10/16/2017 16:30:11 10/16/19 18 10/16/2017 CBC w/ auto diff RDW 12.8 % 10.8-1 4.6 Not Available [facility] (Outpatient) [address] [place] [address], [address], 10/16/2017 16:30:11 10/16/19 18 10/16/2017 CBC w/ auto diff MPV 10.9 fL 9.4-12 .4 Not Available [facility] (Outpatient) [address] [place] [address], [address], 10/16/2017 16:30:11 10/16/19 18 10/16/2017 CBC w/ auto diff NRBC 0.00 /100_ WBCs Not Available [facility] (Outpatient) [address] [place] [address], [address], 10/16/2017 16:30:11 10/16/19 18 10/16/2017 CBC w/ auto diff absolute NRBC 0.00 K/uL Not Available [facility] (Outpatient) [address] [place] [address], [address], 10/16/2017 16:30:11 10/16/19 18 10/16/2017 CBC w/ auto diff diff method Auto Not Available [facility] (Outpatient) [address] [place], [address], 10/16/2017 16:30:11 10/16/19 18 10/16/2017 CBC w/ auto diff neuts 54.2 % 45.30- 77.70 Not Available [facility] (Outpatient) [address] [place] [address], [address], 10/16/2017 16:30:11 10/16/19 18 10/16/2017 CBC w/ auto diff lymphs 32.1 % 12.30- 39.70 Not Available [facility] (Outpatient) [address] [place], [address], 10/16/2017 16:30:11 10/16/19 18 10/16/2017 CBC w/ auto diff monos 10.4 % 4.10-1 2.80 Not Available [facility] (Outpatient) [address] [place], [address], 10/16/2017 16:30:11 10/16/19 18 10/16/2017 CBC w/ auto diff eos 2.7 % 0-7.2 Not Available [facility] (Outpatient) [address] [place] [address], [address], 10/16/2017 16:30:11 10/16/19 18 10/16/2017 CBC w/ auto diff basos 0.4 % 0-2.80 Not Available [facility] (Outpatient) [address] [place], [address], 10/16/2017 16:30:11 10/16/19 18 10/16/2017 CBC w/ auto diff granulocytes , immature (%) 0.2 % 0.0-0. 9 Not Available [facility] (Outpatient) [address] [place], [address], 10/16/2017 16:30:11 10/16/19 18 10/16/2017 CBC w/ auto diff absolute neuts 3.03 K/uL 1.40-7 .70 Not Available [facility] (Outpatient) [address] [place], [address], 10/16/2017 16:30:11 10/16/19 18 10/16/2017 CBC w/ auto diff absolute lymphs 1.79 K/uL 0.60-3 .20 Not Available [facility] (Outpatient) [address] [place], [address], 10/16/2017 16:30:11 10/16/19 18 10/16/2017 CBC w/ auto diff absolute monos 0.58 K/uL 0.11-0 .59 Not Available [facility] (Outpatient) [address] [place], [address], 10/16/2017 16:30:11 10/16/19 18 10/16/2017 CBC w/ auto diff absolute eos 0.15 K/uL 0.01-0 .50 Not Available [facility] (Outpatient) [address] [place], [address], 10/16/2017 16:30:11 10/16/19 18 10/16/2017 CBC w/ auto diff absolute basos 0.02 K/uL 0.00-0 .08 Not Available [facility] (Outpatient) [address] [place], [address], 10/16/2017 16:30:11 10/16/19 18 10/16/2017 CBC w/ auto diff granulocytes , immature 0.01 K/uL 0.00-0 .05 Not Available [facility] (Outpatient) [address] [place], [address], 10/16/2017 16:30:11 10/16/19 18 10/16/2017 BMP, blood sodium 142 mmol/ L 133-14 6 Not Available [facility] (Out[facility]) [address] [place], [address], 10/16/2017 16:53:22 10/16/19 18 10/16/2017 BMP, blood chloride 105 mmol/ L 96-108 Not Available [facility] (Out[facility]) [address] [place], [address], 10/16/2017 16:53:22 10/16/19 18 10/16/2017 BMP, blood potassium 4.7 mmol/ L 3.3-5. 1 Not Available [facility] (Out[facility]) [address] [place], [address], 10/16/2017 16:53:22 10/16/19 18 10/16/2017 BMP, blood CO2 29 mmol/ L 21-35 Not Available [facility] (Out[facility]) [address] [place] [address], [address], 10/16/2017 16:53:22 10/16/19 18 10/16/2017 BMP, blood BUN 6 mg/dL 6-19 Not Available [facility] (Out[facility]) [address] [place] [address], [address], 10/16/2017 16:53:22 10/16/19 18 10/16/2017 BMP, blood creatinine 0.90 mg/dL 0.5-1. 5 Not Available [facility] (Out[facility]) [address] [place] [address], [address], 10/16/2017 16:53:22 10/16/19 18 10/16/2017 BMP, blood glucose 229 mg/dL 70-99 high Not Available [facility] (Outpatient) [address] [place] [address], [address], 10/16/2017 16:53:22 10/16/19 18 10/16/2017 BMP, blood calcium 9.6 mg/dL 8.4-10 .3 Not Available [facility] (Outpatient) [address] [place] [address], [address], 10/16/2017 16:53:22 10/16/19 18 10/16/2017 BMP, blood eGFR >60 mL/mi n/1.7 3m2 >60 Abnor mal if <60. If patie nt is Afric an-Am kwabena n, multi ply the resul t by 1.21. Not Available [facility] (Out[facility]) [address] [place] [address], [address], 10/16/2017 16:53:22 10/16/19 18 10/16/2017 BMP, blood anion gap 13 mmol/ L 10-20 Not Available [facility] (Out[facility]) [address] [place] [address], [address], 10/16/2017 16:53:22 10/16/19 18 10/16/2017 lipas e, serum or plasm a lipase 25 U/L 16-63 Not Available [facility] (Out[facility]) [address] [place], [address], 10/16/2017 16:53:24 10/16/19 18 10/16/2017 lfts (hepa tic panel ) alkaline phosphatase 98 U/L 39-117 Not Available [facility] (Outpatient) [address] [place], [address], 10/16/2017 16:53:26 10/16/19 18 10/16/2017 lfts (hepa tic panel ) total bilirubin 0.5 mg/dL 0-1.2 Not Available [facility] (Out[facility]) [address] [place] [address], [address], 10/16/2017 16:53:26 10/16/19 18 10/16/2017 lfts (hepa tic panel ) direct bilirubin <0.2 mg/dL 0-0.3 Not Available [facility] (Outpatient) [address] [place], [address], 10/16/2017 16:53:26 10/16/19 18 10/16/2017 lfts (hepa tic panel ) bilirubin (indirect) NOT CALCUL ATED mg/dL 0-1.5 Not Available [facility] (Out[facility]) [address] [place] [address], [address], 10/16/2017 16:53:26 10/16/19 18 10/16/2017 lfts (hepa tic panel ) AST 14 U/L 0-37 Not Available [facility] (Outpatient) [address] [place] [address], [address], 10/16/2017 16:53:26 10/16/19 18 10/16/2017 lfts (hepa tic panel ) ALT 16 U/L 0-40 Not Available [facility] (Out[facility]) [address] [place] [address], [address], 10/16/2017 16:53:26 10/16/19 18 10/16/2017 lfts (hepa tic panel ) total protein 7.4 g/dL 6.5-8. 0 Not Available [facility] (Out[facility]) [address] [place], [address], 10/16/2017 16:53:26 10/16/19 18 10/16/2017 lfts (hepa tic panel ) albumin 4.3 g/dL 3.9-4. 8 Not Available [facility] (Out[facility]) [address] [place], [address], 10/16/2017 16:53:26 10/16/19 18 10/16/2017 lfts (hepa tic panel ) globulin 3.1 g/dL 1-4.8 Not Available [facility] (Out[facility]) [address] [place], [address], 10/16/2017 16:53:26 10/16/19 18 10/16/2017 lfts (hepa tic panel ) A/G ratio 1.39 ratio 1.00-4 .80 Not Available [facility] (Out[facility]) [address] [place], [address], 10/16/2017 16:53:26 04/12/20 16 04/12/2016 XR, chest , 2 view No observ ation record ed. [email or web address] [facility] [address] [place], [address], 04/18/2016 07:51:26 06/16/20 16 04/12/2016 chest 2 [...] DORIAN MON MD 2015 06:35 AM mmastroberti [facility] [address] [facility], [place], [address], 06/17/2016 10:45:13 03/09/20 17 03/09/2017 CT, abdom [...] By: MO CERON MD 2016 10:12 AM [facility] [address] [place] [address], [address], 03/13/2017 13:11:35 10/17/19 18 10/16/2017 xr abdom [...] P.S. LQP X 7 MONTHS ROBLESSindhu ISAAC [facility] [address] [place] [address], [address], 10/17/2017 08:11:32 Result Notes None recorded. Problems Name Problem SNOMED Code Status Onset Date Resolution Date Notes Provider Name and Address Organization Details Recorded Time Essential hypertensio n 92089420 Completed 01/20/2016 Robles Isaac MD [address] [place], [place] [address], [address], [facility] 6 23:10:47 Diabetes mellitus 05241173 Completed 01/20/2016 Robles Isaac MD [address] [place], [place] [address], [address], [facility] 6 23:10:50 Skin lesion 21945035 Completed 01/20/2016 Robles hendrickson MD [address] [place], [place] [address], [address], [facility] 6 23:10:54 Benign essential hypertensio n 4445370 Active Robles Isaac MD [address] [place], [place] [address], [address], [facility] 6 08:53:56 Mixed hyperlipide muna 590375840 Active Robles Isaac MD [address] [place], [place] [address], [address], [facility] 6 08:53:56 Uncontrolle d type 2 diabetes mellitus 702603373 Active Robles Isaac MD [address] [place], [place] [address], [address], [facility] 6 08:53:56 Problem Notes None recorded. Procedures Surgical History Date Name Laterality Status Provider Name and Address Organization Details Recorded Time 6 POC Urinalysis Testing completed Yocasta [facility] 05/31/2016 16:24:56 4 Excision completed Robles Isaac MD [address] [place] [address], [address], [facility] 10/15/2013 11:15:56 Imaging Results None recorded. Procedure [...] Available Not Available No t Available [facility] Lite kit active Not Available Not Available Not Available Vitals Date Recorded Body height Body weight Body mass index (BMI) Systolic blood pressure Diastolic blood pressure Provider Name and Address Organization Details Last Updated DateTime 05/03/2016 158.115 cm 38851.45 g 27.4 kg/m2 144 mm[Hg] 74 mm[Hg] Alessandra Orellana [facility] 6 08:30:54 Date Recorded Body height Heart rate Oxygen saturation Oxygen saturation in Arterial blood by Pulse oximetry Systolic blood pressure Diastolic blood pressure Provider Name and Address Organization Details Last Updated DateTime 6 158.115 cm 85 /min 98 % 98 % 142 mm[Hg] 88 mm[Hg] Yocasta Brownlee [facility] 6 16:06:44 Date Recorded Body height Systolic blood pressure Diastolic blood pressure Provider Name and Address Organization Details Last Updated DateTime 06/06/2016 158.115 cm 142 mm[Hg] 72 mm[Hg] [facility] 09:58:35 Date Recorded Body height Body weight Body mass index (BMI) Systolic blood pressure Diastolic blood pressure Provider Name and Address Organization Details Last Updated DateTime 06/22/2016 158.115 cm 19901.26 g 27.3 kg/m2 150 mm[Hg] 80 mm[Hg] Yocasta [facility] 11:20:12 Social History Question Answer Notes LastModified by Organizat ion Details LastModified Time Tobacco Smoking Status [facility] 10/02/2013 10:35:52 Are You Blind [...] 10/02/2013 What is your occupation? Works at [employer] Information not available 10/02/2013 Do you [...] Recorded Time Tdap 4 completed Not Available [facility] 09/28/2019 02:16:08 Influenza, split virus, quadrivalent, PF 4 completed Not Available [facility] 09/28/2019 02:18:56 pneumococcal polysaccharide PPV23 4 completed Not Available [facility] 09/28/2019 02:14:36 Influenza, split virus, trivalent, PF 4 completed Not Available [facility] 09/28/2019 02:19:21 Influenza, split virus, quadrivalent, PF 6 completed Not Available [facility] 09/28/2019 02:33:00 Past Encounters Encounter ID Performer Location Encounter Start Date Encounter Closed Date Diagnosis/Indication Diagnosis SNOMED-CT Code Diagnosis ICD10 Code Diagnosis Note [id number] Robles Isaac MD , [facility], [address] [place] [address] 10/02/2013 10:13:34 10/02/2013 11:26:17 Essential hypertension 74152679 Elevated BP. Previously not engaged in care. Low salt diet recommende d. Start Chlorthali done. Will add SHUN-I once renal function establishe d. Follow up in 1 week. Advised to get fasting labwork tomorrow. Diabetes mellitus 20157949 Patient with new-onset diabetes. Symptoms of polydipsia [...] week. Screening for malignant neoplasm of colon 006987491 Skin lesion 31331744 Inv olving the left posterior upper arm. Likely epidermoid cyst. Schedule for an excision. No clinical evidence of cellulitis or acute abscess. Influenza vaccine needed [id number] 106 Administra tion of diphtheria, pertussis, and tetanus vaccine [id number] Robles Isaac MD , [facility], [address] [place] [address] 10/09/2013 09:59:46 10/09/2013 13:05:30 Essential hypertension 72676690 Previously not engaged in care. Tolerating Chlorthali done. BP improved. Low salt diet recommende d. Will add Lisinopril 2.5mg po daily. Repeat BMP at his next visit. Diabetes mellitus 74213705 Patient with new-onset diabetes. Symptoms of polydipsia [...] start SHUN-I. Follow up in 1 week. [id number] Robles Isaac MD , [facility], [address] [place] [address] 10/15/2013 10:06:38 10/15/2013 13:08:04 Diabetes mellitus 33230839 Patient with new-onset diabetes. Symptoms of polydipsia [...] in 1 week. Epidermoid cyst of skin 403492103 Non-infect ed, left upper arm cyst removed [...] week for wound check and suture removal. [id number] Robles Isaac MD , [facility], [address] [place] [address] 10/23/2013 14:35:31 10/23/2013 15:12:07 Chest pain 68643006 His symptoms of left-sided chest pain and [...] s for UC/ER use discussed. Skin lesion 88514569 Inv olving the left posterior upper arm. Sutures removed. Hypertroph ic scar and contact dermatitis noted. Purulent discharge expressed with suture removal. Wound care discussed. Gauze applied. Follow up early next week for a follow up. Consider General Surgery referral if not healed completely . [id number] Robles Isaac MD , [facility], [address] [place] [address] 10/30/2013 08:21:52 10/30/2013 08:54:16 Essential hypertension 88012540 Previously was not engaged in care. Tolerating Chlorthali done and Lisinopril . BP markedly improved. Low salt diet recommende d. Check BMP at his next visit. Diabetes mellitus 19440245 Patient with new-onset diabetes. Symptoms of polydipsia [...] ratio. SHUN-I started previously . Skin lesion 73902312 Inv olving the left posterior upper arm. Sutures removed last week. Hypertroph ic scar and contact dermatitis noted at the time. Now healing well. No fluctuance . Consider General Surgery referral if not healed completely . Chest pain 98165486 His symptoms of left-sided chest , SOB [...] symptoms. Indication s for UC/ER use discussed. [id number] Robles Isaac MD , [facility], [address] [place] [address] 11/27/2013 09:03:19 11/27/2013 09:47:48 Diabetes mellitus 62007931 Patient with recent diagnosis of diabetes. Symptoms [...] elevated MA/Cr ratio. SHUN-I started. Essential hypertension 95183875 Previously was not engaged in care. Tolerating Chlorthali done. Erroneousl y stopped Lisinopril . Will resume. No intoleranc e issues. BP markedly improved. Low salt diet recommende d. Epidermoid cyst of skin 205545597 Non-infect ed, left upper arm cyst removed at his previous visit due to persistent pain. Patient with residual scarring. No current evidence of infection. [id number] Robles Isaac MD , [facility], [address] [place] [address] 02/19/2014 11:04:44 02/19/2014 12:04:40 Adult health examination 420647699 See Risk Assessment and Lifestyle Change Counseling section above. Tdap vaccine UTD. PNA vaccine administer ed today. Home/vehic le/sexual safety reviewed. Not sexually active. Colonoscop y scheduled 03/2014. Counseling 714967108 Benign ess ential hypertension 3233880 Previously was not engaged in care. Tolerating Chlorthali done and Lisinopril . BP markedly improved. Low salt diet recommende d. Mixed hyperlipidemia 058939161 Fair FLP with LDL 92. Would like better control given his underlying diabetes, but also struggles with polypharma cy. Low fat/choles terol diet and exercise recommende d. Diarrhea 40902164 Patien t with chronic diarrhea intermitte ntly. Recently evaluated by Dr. Burrows (GI). Scheduled to have a colonoscop y in 03/2014. Recent IgA mildly positive (other celiac markers negative). No BRBPR/boris na. No abdominal pain. Uncontroll ed type 2 diabetes mellitus 558651787 States home BS 140-200. Improved Hgb A1c [...] hydration discussed. Administra tion of pneumococcal vaccine [id number] Robles Isaac MD FP, [facility], [address] [place] [address] 04/09/2014 07:59:46 04/09/2014 08:49:22 Uncontrolled type 2 diabetes mellitus 631865471 States home BS 120-150. Overall improved Hgb [...] discussed. Ample oral hydration discussed. Essential hypertension 31912311 Previously was not engaged in care. Tolerating Chlorthali done. Erroneousl y stopped Lisinopril . Will resume. No intoleranc e issues. BP markedly improved. Will titrate up Lisinopril as needed. Low salt diet recommende d. [id number] Robles Isaac MD , [facility], [address] [place] [address] 07/07/2014 07:47:01 07/07/2014 08:23:26 Mixed hyperlipidemia 901798759 Patient with LDL of 150 (06/2014). However, his 10-year risk of RI is 7%. New AHA/ACC guideline discussed. Advised on low fat/choles terol diet and exercise. Influenza vaccine needed [id number] 106 Uncontroll ed type 2 diabetes mellitus 141280970 States home BS 100-160. Overall improved Hgb [...] discussed. Ample oral hydration discussed. Essential hypertension 77709292 Previously was not engaged in care. Tolerating Chlorthali done and Lisinopril . No intoleranc e issues. BP markedly improved. Low salt diet recommende d. [id number] Robles Isaac MD , [facility], [address] [place] [address] 11/25/2015 08:22:18 11/25/2015 09:20:28 Benign essential hypertension 8476607 I10 Blood pressure elevated. Lost insurance in 2013. Has been off his medication s. No CP/SOB/CUEVAS . Recommende d to continue to work on diet, exercise, and lowering salt intake. Will resume Lisinopril (but will hold off on Chlorthali done). Check BMP. Mixed hyperlipidemia 267 385110 E78.2 Patient with previous LDL of 150 (06/2014). However, his 10-year risk of RI is 7%. New AHA/ACC guideline discussed. Advised on low fat/choles terol diet and exercise. Uncontroll ed type 2 diabetes mellitus 089639417 E11.65 Out of care for over 1 [...] oral hydration discussed. Unexplaine d weight loss 865942188 R63.4 Patient with 15 lbs weight loss since his last visit. Denies bleeding. Out of medication for over 1 year. Will continue to monitor. [id number] Robles Isaac MD , [facility], [address] [place] [address] 12/14/2015 10:17:02 12/15/2015 08:21:49 Benign essential hypertension 9774489 I10 Blood pressure improved. Lost insurance in 2013. Was off his medication s. No CP/SOB/CUEVAS . Recommende d to continue to work on diet, exercise, and lowering salt intake. Recently started Lisinopril (but will hold off on Chlorthali done). Mixed hyperlipidemia 267 899006 E78.2 Patient with previous LDL of 150 (06/2014). However, his 10-year risk of RI is 7%. New AHA/ACC guideline discussed. Advised on low fat/choles terol diet and exercise. Uncontroll ed type 2 diabetes mellitus 198190657 E11.65 Out of care for over 1 [...] medication s discussed. Ample oral hydration discussed. [id number] MD GISSELL Huizar, [facility], [address] [place] [address] 01/11/2016 08:21:26 01/11/2016 08:52:49 Benign essential hypertension 5560206 I10 Blood pressure elevated, but previously well [...] if persistent ly elevated. Mixed hyperlipidemia 267 380108 E78.2 Patient with previous LDL of 150 (06/2014). However, his 10-year risk of RI is 7%. New AHA/ACC guideline discussed. Advised on low fat/choles terol diet and exercise. Uncontrol ed type 2 diabetes mellitus 168211618 E11.65 Out of care for over 1 [...] hydration discussed. Right uppe r quadrant pain 273882658 R10.11 Patient with 1-week duration of RUQ abdominal pain. No clinical evidence of acute abdomen. Will check US to further evaluate. Advised to avoid high fat diet. Indication s for UC/ER use reviewed. [id number] MD GISSELL Huizar, [facility], [address] [place] [address] 01/20/2016 08:45:30 01/20/2016 09:28:43 Cholelithiasis without obstruction 09047585 K80.20 Patient with 1-week duration of RUQ abdominal pain. No clinical evidence of acute abdomen. Abdominal US revealed gallstones . Will refer to General Surgery for further evaluation . Advised to avoid high fat diet. Indication s for UC/ER use reviewed. Benign ess ential hypertension 0374103 I10 Blood pressure improved overall. Lost insurance in 2013. Was off his medication s. No CP/SOB/CUEVAS . Recommende d to continue to work on diet, exercise, and lowering salt intake. Recently started Lisinopril (but will hold off on Chlorthali done). Mixed hyperlipidemia 267 501623 E78.2 Patient with previous LDL of 150 (06/2014). However, his calculated 10-year risk of RI is 7%. New AHA/ACC guideline discussed. Advised on low fat/choles terol diet and exercise. Uncontroll ed type 2 diabetes mellitus 232199510 E11.65 Out of care for over 1 [...] medication s discussed. Ample oral hydration discussed. [id number] Robles Isaac MD , [facility], [address] [place] [address] 05/03/2016 08:21:49 05/03/2016 08:48:10 Neuropathy 394638194 G62.9 Patient reports bilateral inner thigh numbness and tingling. No weakness. No urine incontinen ce symptoms. Trial of Gabapentin discussed. Uncontroll ed type 2 diabetes mellitus 617370866 E11.65 Recently increased the Glipizide dose. Previously [...] oral hydration discussed. Benign ess ential hypertension 2017652 I10 Blood pressure improved overall. Lost insurance in 2013. Was off his medication s. No CP/SOB/CUEVAS . Recommende d to continue to work on diet, exercise, and lowering salt intake. Recently started Lisinopril (but will hold off on Chlorthali done). [id number] BHARAT Mauricio, [facility], [address] [place] [address] 05/31/2016 15:55:20 05/31/2016 16:50:42 Active or passive immunization 731793494 Z23 Diarrhea 73961682 R19.7 possibly secondary to surgery, poor historian, symptoms worsening in last 2 weeks. labs as ordered below. advised follow up within 4-7 days. Dysuria 61862670 R30.0 UA labs consistent with poorly controlled DM. culture pending. follow up with PCP, if symptoms worsen be seen. Uncontroll ed type 2 diabetes mellitus 510653849 E11.65 reviewed importance of blood sugar control. pt to follow up with pcp. [id number] BHARAT Mauricio, [facility], [address] [place] [address] 06/06/2016 09:54:11 06/06/2016 10:24:25 Diarrhea 44673554 R19.7 possible s/e of metformin, change ir to ER, follow up in 2 weeks. Uncontroll ed type 2 diabetes mellitus 048396116 E11.65 possible metformin contributi ng to diarrhea, change to ER. monitor diarrhea, follow up in 2 weeks for disease management re diarrhea and blood sugar. Pain of sh oulder region 85383039 M25.512 subscapula r pain consistent with muscle strain. continue with supportive measures. [id number] BHARAT Mauricio, [facility], OFFICE [address] [place] [address] 06/22/2016 11:10:57 06/24/2016 09:39:47 Shoulder joint pain [id number] M25.519 right sub scapular muscle spasm, pt notes weakness in right shoulder suggestive of rotator cuff involvemen t, but no focal weakness on exam , muscle tension noted. refer for PT, apply heat, follow up for failure to resolve. Diabetes mellitus [id number] E11.9 fasting sugar elevated, referral to DNE consider victoza or insulin. [id number] Julieta Barrett RN, BSN, [facility] DM Education , [facility] [address] [place] [address] 07/04/2016 07:51:58 07/08/2016 09:50:09 Uncontrolled type 2 diabetes mellitus [id number] E11.65 Met with Greg today for Type 2 diabetes, kindly referred by Kyra Mauro NP. Greg is accompanie d by his daughter, who helps to translate for him. He is Japanese speaking. His daughter reports she lives with [...] Delong Member ID Guarantor Name 05/03/2016 1 [facility] [facility] [employer] TYPE II (HMO) [facility] [id number] 001 [facility] 05/31/2016 1 [employer] [facility] [employer] TYPE II (HMO) [facility] [id number] 001 [facility] 06/06/2016 1 [facility] [facility] [facility] [employer] TYPE II (HMO) [facility] [id number] 001 [facility] 06/22/2016 1 [facility] [facility] [employer] TYPE II (HMO) [facility] [id number] 001 [facility] 07/04/2016 1 [facility] [facility] [facility] [employer] TYPE II (HMO) [facility] [id number] 001 [facility] Notes Date Note Type Note [...] undergone laparoscopic cholecystectomy in 02/2016. Went to [facility] ER 3 weeks ago due to CP. His CXR, CBC, Troponin and CMP all within normal, except for elevated BS. No recurring symptoms since. Robles Isaac MD [address] [place] [address], [phone], [facility] 05/03/2016 23:18:53 05/31/2016 text/html pt presents with [...] worse. no fever. Kyra Mauro, [facility] [address] [place], [phone], [facility] 06/05/2016 16:26:27 06/06/2016 text/html back pain, start [...] may be related to metformin. Kyra Mauro, [address], [phone], [facility] 06/06/2016 10:22:13 06/22/2016 text/html pt has pain in b ack to front around shoulder pain is interfering with ability to sleep.pain lasts all day.feels as if the shoulder falls asleep and drops. Kyra Mauro, [address], [phone], [facility] 06/22/2016 11:34:50 07/04/2016 text/html Diabetes Self Management History & IntakeReported bypatient.Patient HistoryPatient chief complaint today:Needs help interpreting blood sugars; has a family history of diabetes; Completed Diabetes Self-Assessment Form received, reviewed and sent for chart upload. 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 Intake Form) Julieta Barrett RN, BSN, [address], [phone], [facility] 07/04/2016 16:03:29
== END 2025-02-12 15:14 | disposition home or self-care (01) ==
LOC: HO.HKAM 14:45
PROVIDERS: PCP Internal Medicine; Visit Provider Internal Medicine Hypertension Specialist
DX: N18.9 Chronic kidney disease, unspecified (principal); I25.10 Atherosclerotic heart disease of native coronary artery without angina pectoris; I25.5 Ischemic cardiomyopathy; D64.9 Anemia, unspecified
CPT/HCPCS: 99214

== ENCOUNTER → 2025-02-12 14:45 | Outpatient (BNVA) | payer OTHER, SELFPAY | PROVIDERS: PCP Internal Medicine; Visit Provider Internal Medicine Hypertension Specialist | DX: N18.9 Chronic kidney disease, unspecified (principal); D64.9 Anemia, unspecified; I25.10 Atherosclerotic heart disease of native coronary artery without angina pectoris; I25.5 Ischemic cardiomyopathy | CPT/HCPCS: 99212 ==

== ENCOUNTER 2025-04-30 09:53 | Outpatient (REF) | payer OTHER, SELFPAY ==
--- NOTE | ~2025-04-30 | FL_ITS ---
EXAMINATION: XR UPPER GI SERIES WITH SMALL BOWEL CLINICAL INFORMATION: Gastroesophageal reflux disease COMPARISON: Modified barium swallow 05/15/2024. TECHNIQUE: Initially barium swallow with saltine crackers and barium paste was performed in upright view. Subsequently thick barium and effervescent granules were obtained in upright view in multiple projections. Patient was placed supine and prone lying and images were obtained. FINDINGS: Following oral administration of saltine crackers and barium paste in upright view there is normal oral mastication and propagation bolus from the oral cavity through the pharynx, esophagus into stomach. No intrinsic obstruction, filling defects or extrinsic compression seen. On oral administration of thick barium and effervescent granules granules, there is an prominent cervical- esophagus sphincter indenting the posterior sagittal wall. There is mild obstruction. No laryngeal penetration or aspiration. No retention in the valleculae or piriform sinuses. On placing patient supine and prone lying the course, caliber and peristalsis of the stomach, duodenal bulb and sweep is normal. There is a small reducible hiatal hernia with mild gastroesophageal reflux. FLUOROSCOPY TIME: 3 minutes and 20 seconds DOSE AREA PRODUCT: 2826 uGy-m2 (microgray-meter squared) FL/FL upper GI w air w Ba Swallow IMPRESSION: Small cyst sliding hiatal hernia with mild gastroesophageal reflux. Prominent cricoesophageal sphincter indenting posterior cervical esophageal wall and mild obstruction suspected. The lower esophagus, stomach, duodenal bulb and C-loop is normal Electronically signed by: Dougie Billy MD 04/30/2025 01:38 PM EDT
--- OUTSIDE RECORDS SUMMARY | 2025-04-30 10:44 | XMS_ITS | Clinical Summary ---
Author Organization [facility] Address [address] [place] [address] Phone Care Team Providers Care Medical Physics Professor Name Role Phone Pcp, Unknown Primary Care Provider Unavailabl e Allergies No known active allergies Medications cyclobenzaprine (FLEXERIL) 10 MG tablet Take 1 tablet (10 mg total) by mouth 3 (three) times a day as needed (muscle spasm). 15 tablet 01/26/2023 Active amLODIPine (NORVASC) 5 MG tablet Take 1 tablet (5 mg total) by mouth daily. 60 tablet 1 01/26/2023 Active Social History Tobacco Use Types Packs/Day Years Used Date Smoking Tobacco: Never Smokeless Tobacco: Never Alcohol Use Standard Drinks/Week Comments No 0 (1 standard drink = 0.6 oz pur e alcohol) Education Answer Date Recorded Are you interested in more education? Not on danielle e 01/26/2023 Are you concerned about learning? Not on file 01/26/2023 No 01/26/2023 No 01/26/2023 Digital Access Answer Date Recorded No 02/02/2023 No 02/02/2023 No 02/02/2023 Reliable internet access at home? Not on file 02/02/2023 Device with a working camera? Not on file Intimate Partner Violence Answer Date R ecorded Are you denied basic needs s uch as food, clothing, or medical care? No 01/26/2023 In the past 12 months have y ou been in a relationship with a person who hurts, threatens, or tries to control you? No 01/26/2023 Are you denied basic needs s uch as food, clothing, or medical care? No 01/26/2023 In the past 12 months have y ou been in a relationship with a person who hurts, threatens, or tries to control you? No 01/26/2023 Sex and Gender Information Value Date Recorded Sex Assigned at Male 01/26/2023 9:40 AM EDT Legal Sex Male 9:50 PM EDT Gender Identity Male 01/26/2023 9:40 AM EDT Sexual Orientation Not on file Last Filed Vital Signs Vital Sign Reading Time Taken Comments Blood Pressure 221/99 01/26/2023 11:35 AM EDT Pulse 60 01/26/2023 10:47 AM EDT Temperature 35.9 C (96.6 F) 01/26/2023 9:39 AM EDT Respiratory Rate 18 01/26/2023 9:39 AM EDT Oxygen Saturation 98% 01/26/2023 10:47 AM EDT Inhaled Oxygen Concentration - - Weight 64.4 kg (142 lb) 01/26/2023 9:39 AM EDT Height 160 cm (5' 3 ) 01/26/2023 9:39 AM EDT Body Mass Index 25.15 01/26/2023 9:39 AM EDT Plan of Treatment Health Maintenance Due Date Last Done Comments LIPID PANEL 1959 DEPRESSION SCREENING 1971 HEPATITIS C SCREENING 1977 HIV ONE-TIME SCREENING (18-6 5 YEARS) 1977 SCREENING FOR DIABETES 1994 COLOGUARD 2004 COLONOSCOPY 2004 COLORECTAL CANCER SCREENING 2004 FIT TEST 2004 FOBT 2004 SIGMOIDOSCOPY 2004 VIRTUAL COLONOSCOPY 2004 ZOSTER VACCINES (1 of 2) 2009 PNEUMOCOCCAL VACCINES (50+ years) (2 of 2 - PCV) 02/19/2015 02/19/2014 Adult Td,Tdap Booster 10/02/2023 10/02/2013 COVID-19 VACCINE (3 - 2023-2 5 season) 2024 02/19/2021, 01/22/2021 RSV VACCINE (1 - 1-dose 75+ series) 2034 SMOKING STATUS SCREENING (On ce After 26 Yrs) Completed 10/16/2017 HEPATITIS A VACCINES Aged Out No long er eligible based on patient's age to complete this topic HIB VACCINES Aged Out No longer eligi ble based on patient's age to complete this topic MENINGOCOCCAL VACCINES (ACWY) Aged Out No longer eligible based on patient's age to complete this topic MENINGOCOCCAL VACCINES (B) Aged Out N o longer eligible based on patient's age to complete this topic Medical Devices Not on file Insurance [place] Care Teams Medical Physics Professor Relationship Specialty Start Date End Date Pcp, Unknown PCP - General 01/26/23 Additional Source Comments The information contained in this document represents components of the legal health record. It is not the complete legal health record.[facility]
--- OUTSIDE RECORDS SUMMARY | 2025-04-30 10:44 | XMS_ITS | Encounter Summary ---
Author Organization [employer] Address [address] [place] [address] Care Team Providers Care Grassland Conservationist Name Role Phone Carolina Siddiqi MD Primary Care Provide r Reason for Visit * Reason Comments Med Refill Encounter Details Date Type Department Care Team ([facility] st Contact Info) Description 04/25/2025 Refill [facility] [address] [place] [address] Carolina Siddiqi MD [address] [place] [address] Social History Tobacco Use Types Packs/Day Years [...] Care Team (Late st Contact Info) Description 06/02/2025 11:30 AM EDT Office Visit [facility] MED[facility]INE [address] [place] [phone] Carolina Siddiqi MD [address] [place] [address] [phone] 07/08/2025 10:45 AM EDT Office Visit [facility] [address] [place] [address] [phone] Carolina Siddiqi MD [address] [place] [address] [phone] documented as of this encounter Goals Goal Patient Goal Type Associated Problems Recent Progress Patient-Stated? Author Blood Pressure < 140/90 Blood Pressure 135/72(2024 9:20 AM EDT) No Ivana Puente PharmD Take your medication every day Lifestyle No Ivana Puente PharmSindhu Hemoglobin A1c < 7 Result Component 6.2( 9:25 AM EDT) No Ivana Puente PharmD documented as of this encounter Visit Diagnoses Not on filedocumented in this encounter Additional Health Concerns Assessment Noted Time PHQ-9 Depression Total Score: 10 02/25/ 024 10:07 AM EDT documented as of this encounter Care Teams Grassland Conservationist Relationship Specialty Start Date End Date Carolina Siddiqi MD [address] [place] [address] PCP - General Internal Medicine 07/11/23 Jolie Thompson Community Health Worker Case Management 02/14/24 documented as of this encounter
== END 2025-04-30 09:54 | disposition home or self-care (01) ==
LOC: HO.XRAY 09:53
PROVIDERS: PCP Internal Medicine; Visit Provider Nurse Practitioner Family
DX: K21.9 Gastro-esophageal reflux disease without esophagitis (principal)
CPT/HCPCS: 74246

== ENCOUNTER → 2025-04-30 09:55 | Outpatient (BNV) | payer OTHER, SELFPAY | PROVIDERS: PCP Internal Medicine; Visit Provider Radiology Diagnostic Radiology | DX: K21.9 Gastro-esophageal reflux disease without esophagitis (principal) | CPT/HCPCS: 74246 ==

== ENCOUNTER 2025-05-09 09:03 | Outpatient (AMB) | payer OTHER, SELFPAY ==
--- NOTE | 2025-05-09 09:18 | A.OFFVIS_ITS ---
Vital Signs 05/09/25 09:30 Height 5 ft 3 in Weight 128 lb BMI 22.7 BP 124/64 Blood Pressure Location Rt brachial Position Sitting Pulse 66 Pulse Source Pulse Oximeter Pulse Oximetry (%) 99 Oxygen Delivery Method Room Air Intake Visit Reasons: 3 mo f/u Intake Note: Est pt for mgmt of CIC + bloating. CC; Pt denies any GI sx at this time. However, pt has reported some significant, unintentional W/L since last visit, ~10 lbs. Allergies No Known Allergies Allergy (Verified 02/12/25 14:48) HPI HPI 3 mo f/u: Details: LAST VISIT: Dysphagia Postprandial epigastric pain GERD (gastroesophageal reflux disease) Abdominal bloating Umbilical hernia Constipation Plan Patient will continue taking pantoprazole in the morning and famotidine at bedtime. Continue avoiding dietary triggers and late night snacking. Patient was encouraged to she will his food well. Cut meat to small pieces. Patient missed his upper GI series that was scheduled for the of this month. He will have quality officer call and schedule another appointment for him. Patient will start taking senna daily. Increase fluid intake and activity to promote better bowel motility. Message sent to broaching machine repairer for risk stratification. Patient recently had nuclear stress test. Patient will follow-up in the office in 3 months, sooner on as needed basis. He is agreeable to this plan and verbalizes understanding of instructions. He was given the opportunity to ask questions and all questions answered ? Thank you for allowing me to participate in his care New sennosides (Natural Senna Laxative) 17.2 mg (2 x 8.6 mg) PO BEDTIME 60 tabs 3RF constipation K59.00 TODAY'S VISIT Patient is here today for follow-up and to discuss going for colonoscopy. Patient has been on Brilinta since December of 2023. Patient was cleared by broaching machine repairer to go for procedure. Patient denies any cardiac or respiratory symptoms at this time. Weight loss of 10 lb since last visit. Patient denies any abdominal pain or discomfort. Denies any dyspepsia, dysphagia or odynophagia. Patient is taking pantoprazole in the morning and famotidine and bedtime and symptoms of acid reflux are suppressed for the most part. Occasional epigastric pain or reflux. Patient denies melena, hematochezia or ribbon like stools. Patient denies any issues with anesthesia in the past. No history of sleep apnea. Using Senokot as needed to help with bowel movements PFS Medical History Acute HFrEF (heart failure with reduced ejection fraction) Diabetes HLD (hyperlipidemia) HTN (hypertension) Surgical History S/P cardiac catheterization S/P cardiac cath H/O heart artery stent Hx of appendectomy Social History Household Members: None Housing: Apartment Do you presently have visiting nurse or other home services: No Patient Tobacco Use Status: Tobacco use Unknown Review of Systems Const Denies weight gain and Reports weight loss ENT Reports no additional complaints, Reports dysphagia (With meat) and Denies od ynophagia Card Reports no additional complaints Resp Reports no additional complaints GI Reports abdominal pain (Describes burning around umbilical area), Denies belching, Denies melena, Denies bloating, Denies change in bowel habits, Reports dysphagia (With meat), Denies excessive flatus, Denies dyspepsia, Denies heartburn, Denies diarrhea, Denies loose stools, Denies nausea, Denies odynophagia and Denies vomiting Reports no additional complaints Musc Reports no additional complaints Neuro Reports no additional complaints Psych Reports no additional complaints Endo Reports no additional complaints Physical Exam Vital Signs: Last Vital Signs Pulse 66 05/09/25 09:30 BP 124/64 05/09/25 09:30 Pulse Ox 99 05/09/25 09:30 Oxygen Delivery Method Room Air 05/09/25 09:30 BMI result Body Mass Index 22.7 Const General: healthy appearing, no acute distress and well developed Nutritional Appearance: well nourished Orientation/consciousness: patient oriented x3 Resp Effort & Inspection: normal respiratory effort, able to speak in complete sentences, no tracheal deviation and symmetric chest movement Auscultation: clear to auscultation bilaterally Cardio Rate: regular rate GI Inspection: No distended and No visible herniation (Periumbilical area tender) Palpation (GI): Soft to palpation, not firm, nontender and No hepatosplenomegaly present Auscultation: normal bowel sounds General: Yes no CVA tenderness Back/Spine/Pelvis Back: no CVA tenderness Skin General skin exam: elasticity normal, turgor normal and dry skin Neuro General: patient oriented x3 Psych Appearance: grossly normal Mental Status: mental status grossly normal Results Reviewed Results Reviewed: UPPER GI SERIES WITH BARIUM SWALLOW 04/30/2025 IMPRESSION: Small cyst sliding hiatal hernia with mild gastroesophageal reflux. Prominent cricoesophageal sphincter indenting posterior cervical esophageal wall and mild obstruction suspected. The lower esophagus, stomach, duodenal bulb and C-loop is normal Assessment & Plan Assessment & Plan (1) Dysphagia: Code(s): R13.10 - Dysphagia, unspecified Qualifiers: Dysphagia type: pharyngoesophageal phase Qualified Code(s): R13.14 - Dysphagia, pharyngoesophageal phase (2) Postprandial epigastric pain: Code(s): R10.13 - Epigastric pain (3) Gastroesophageal reflux disease: Code(s): K21.9 - Gastro-esophageal reflux disease without esophagitis Qualifiers: Esophagitis presence: esophagitis presence not specified Qualified Code(s): K21.9 - Gastro-esophageal reflux disease without esophagitis (4) Abdominal bloating: Code(s): R14.0 - Abdominal distension (gaseous) (5) Constipation: Code(s): K59.00 - Constipation, unspecified Qualifiers: Constipation type: slow transit constipation Qualified Code(s): K59.01 - Slow transit constipation (6) Screen for colon cancer: Code(s): Z12.11 - Encounter for screening for malignant neoplasm of colon Plan Cricopharyngeal sphincter indenting, possible reason for dysphagia. Upper endoscopy for possible dilation and closer evaluation of the esophagus. Patient will need to go for colonoscopy as well. Denies any melena, hematochezia. Patient denies any issues with anesthesia in the past. Cleared by Cardiology. Currently denies any cardiac or respiratory symptoms. Message sent to surgical schedulers to book patient as soon as we can. Availability for double procedure bulk for May 20. What to expect before during and after procedure discussed with patient. Stressed the importance of good bowel prep and clear liquid diet day before procedure. Patient will be seen after the procedure, sooner on as needed basis. Both patient and his daughter are agreeable to plan of care and verbalizes understanding of instructions. They were given the opportunity to ask questions and all questions answered. Thank you for allowing me to participate in his care Orders: Referrals Warehouse Shipping Receiving Clerk Nutrition Referral R63.4 - Abnormal weight loss Medications: New bisacodyl (Dulcolax (bisacodyl)) take 4 tabs at noon the day before your colonoscopy 20 mg (4 x 5 mg) PO ONCE 4 tabs 0RF constipation 1 day Z12.11 - Encounter for screening for malignant neoplasm of colon polyethylene glycol 3350 (Miralax) As directed by gastroenterology department at [facility] 238 grams PO ONCE 238 grams 0RF Z12.11 - Encounter for screening for malignant neoplasm of colon Coding Level of Care Code Est Pt Level 4 (08127) Complex EM visit Add On G2211 Diagnoses Pharyngoesophageal dysphagia R13.14 Dysphagia type: pharyngoesophageal phase Postprandial epigastric pain R10.13 Gastroesophageal reflux disease, unspecified whether esophagitis present K21.9 Esophagitis presence: esophagitis presence not specified Abdominal bloating R14.0 Slow transit constipation K59.01 Constipation type: slow transit constipation Screen for colon cancer Z12.11 Time Spent (min) 40 Comment 25 minutes spent with patient and additional 15 minutes spent reviewing his records
[2025-05-09 09:30] VITALS: BP 124/64; PULSE 66; O2SAT 99; BMI 22.7
--- OUTSIDE RECORDS SUMMARY | 2025-05-09 09:56 | XMS_ITS | Clinical Summary ---
Author Organization [facility] Address [address] [place] [address] Phone Care Team Providers Care Mounter Name Role Phone Pcp, Unknown Primary Care [...] [place] Care Teams Mounter Relationship Specialty Start Date End Date Pcp, Unknown PCP - General 01/26/23 Additional Source Comments The information contained in this document represents components of the legal health record. It is not the complete legal health record.[facility]
== END 2025-05-09 10:23 | disposition home or self-care (01) ==
LOC: HO.HGI 09:04
PROVIDERS: PCP Internal Medicine; Visit Provider Nurse Practitioner Family
DX: R13.14 Dysphagia, pharyngoesophageal phase (principal); R10.13 Epigastric pain; K21.9 Gastro-esophageal reflux disease without esophagitis; R14.0 Abdominal distension (gaseous); K59.01 Slow transit constipation
CPT/HCPCS: 99214; G2211

== ENCOUNTER → 2025-05-09 09:03 | Outpatient (BNVA) | payer OTHER, SELFPAY | PROVIDERS: PCP Internal Medicine; Visit Provider Nurse Practitioner Family | DX: Z12.11 Encounter for screening for malignant neoplasm of colon (principal); K21.9 Gastro-esophageal reflux disease without esophagitis; R13.14 Dysphagia, pharyngoesophageal phase; R10.13 Epigastric pain; R14.0 Abdominal distension (gaseous); K59.01 Slow transit constipation | CPT/HCPCS: 99212 ==

== ENCOUNTER 2025-05-13 10:48 | Outpatient (AMB) | payer OTHER, SELFPAY ==
[2025-05-13 11:19] VITALS: BMI 22.6
--- NOTE | 2025-05-13 11:19 | A.OFFVIS_ITS ---
VS Expanded 05/13/25 11:19 Height 5 ft 3 in Weight 127 lb 13.89 oz BMI 22.6 Intake Visit Reasons: Abnormal weight loss Allergies No Known Allergies Allergy (Verified 02/12/25 14:48) Nutrition Presentation Details: Pt presents for MNT due to unintentional weight Pt reports he is living with his daughter for almost a year meals are prepared at home the majority of the time. Pt reports he is reducing his food portions since the meals prepared at the house are low in sodium (Pt has hx of ckd and CAD therefore daughter is working on making low sodium meals as per Pt) Noted wt at 138 lbs as recorded in [facility] in 02/2025 Breakfast cold cereal with milk with soda or black coffee snack: fruits, crackers , water or soda soup: ramen noodles with ham added , water or soda or rice/meat ice cream or crackers, water walking with grandchildren around the neighborhood Pt denies vomiting/diarrhea/constipation BS Monitoring Most Recent Diabetes Results: Microalb/Creat Ratio, (<30) 55.2 ug/mg cr H 02/11/25 Cholesterol, (<200) 95 mg/dL 02/11/25 HDL Cholesterol, (>40) 39 mg/dL L 02/11/25 Triglycerides, (<150) 63 mg/dL 02/11/25 Creatinine, (0.5-1.4) 1.69 mg/dL H 02/11/25 BUN, (9-16) 11 mg/dL 02/11/25 Sodium, (135-145) 146 mmol/L H 02/11/25 Potassium, (3.3-5.1) 4.6 mmol/L 02/11/25 Chloride, (96-108) 114 mmol/L H 02/11/25 Carbon Dioxide, (22-29) 28 mmol/L 02/11/25 Calcium, (8.4-10.2) 9.1 mg/dL 02/11/25 AST, (5-37) 19 U/L 02/11/25 ALT, (0-40) 15 U/L 02/11/25 Total Protein, (6.5-8.0) 6.9 g/dL 02/11/25 Albumin, (3.5-5.0) 3.8 g/dL 02/11/25 [facility] Equation Height: 5 ft 3 in Weight: 128 lb Resting Metabolic Rate: 1265.34 Calculated Activity Level: Mild Activity Calories Needed to Maintain Weight: 1739.84 Diagnosis Nutrition problem #1: other (weight loss (10 lbs in about 2 months)) As related to (etiology) #1: unwilling - reduce intake (Pt reports this is related to not liking the food d/t low sodium ) As evidenced by (sign/symptom) #1: food recall and weight loss PFSH Medical History Acute HFrEF (heart failure with reduced ejection fraction) Diabetes HLD (hyperlipidemia) HTN (hypertension) Surgical History S/P cardiac catheterization S/P cardiac cath H/O heart artery stent Hx of appendectomy Social History Household Members: None Housing: Apartment Do you presently have visiting nurse or other home services: No Patient Tobacco Use Status: Tobacco use Unknown Assessment & Plan Assessment & Plan (1) Weight loss: Code(s): R63.4 - Abnormal weight loss Category: Medical Plan: Wt: 58 Kg ( 06/05 ) Est kcal needs as per MSJ: 1700 (40% carb, 30% protein/fat) Est fluid needs as per 25-30 ml/d: 1700 Est prot per day as per 1 g/kg bw: 60 Recommend fiber intake : 8-10 g per day and gradually increase to 25-28 g per day for women and 35-38 g for men or as tolerated Recommend sodium intake per day : less than 2000 mg Educated patient on: ( R = reviewed V = verbalizes understanding N/R = needs review N/A = not applicable How to increase flavors without salt and adding calories to prevent weight loss: R * Patient Instructions: Add flavors to the food (herbs/lemon, pepper, garlic to increase flavor) Have a cup of full fat milk in place of soda with meals. Coding Level of Care Code Nutr Indiv Intake (35313) Diagnoses Weight loss R63.4 Time Spent (min) 30
--- OUTSIDE RECORDS SUMMARY | 2025-05-13 12:19 | XMS_ITS | Clinical Summary ---
Author Organization [facility] Address [address] [place] [address] Phone Care Team Providers Care Paper Ruler Name Role Phone Pcp, Unknown Primary Care [...] 02/19/2015 02/19/2014 Adult Td,Tdap Booster 10/02/2023 10/02/2013 INFLUENZA VACCINE (#1) 2025 6, 07/07/2014, 10/02/2013 COVID-19 VACCINE (3 - 2024-2 6 season) 2025 02/19/2021, 01/22/2021 RSV VACCINE (1 - 1-dose [...] Medical Devices [place] [id number] [place] Care Teams Paper Ruler Relationship Specialty Start Date End Date Pcp, Unknown PCP - General 01/26/23 Additional Source Comments The information contained in this document represents components of the legal health record. It is not the complete legal health record.[facility]
--- OUTSIDE RECORDS SUMMARY | 2025-05-13 12:19 | XMS_ITS | Clinical Summary ---
Author Organization [employer] Address [address] [facility] 7t [place] [address] Care Team Providers Care Corporate Events Director Name Role Phone Carolina Siddiqi MD Primary [...] hyperglycemia, without long-term current use of insulin ([facility]) Use to test blood sugar 2 times daily 100 each 12 024 2024 Active Blood Glucose Monitoring Suppl (FreeStyle [place] Lite) w/Device kitIndications:Ty pe 2 diabetes mellitus with hyperglycemia, without long-term current use of insulin ([facility]) Use to test blood sugar 2 times daily 1 kit 024 Active sacubitril-valsar stoddard (Entresto) 97-103 MG tabletIndications :Primary hypertension,Tandem Operator nilam systolic congestive heart failure ([facility]) Take 1 tablet by mouth 2 times daily. 60 tablet 12 024 2024 Active TRUEplus Lancets 33G miscIndications:T ype 2 diabetes mellitus with hyperglycemia, without long-term current use of insulin ([facility]) USE DIRECTED TO TEST BLOOD SUGAR EVERY DAY 100 each 11 024 Active glucose blood (FREESTYLE LITE) test stripIndications: Type 2 diabetes mellitus with hyperglycemia, without long-term current use of insulin ([facility]) USE DIRECTED TO TEST BLOOD SUGAR ONCE [...] hyperglycemia, without long-term current use of insulin ([facility]) USE DIRECTED TO TEST BLOOD SUGAR TWICE DAILY 100 each 3 025 Active fluticasone (Flonase) 50 MCG/ACT nasal sprayIndications: Rhinitis, unspecified type Administer 1-2 sprays into each nostril Once per day. Shake gently. Before first use, prime pump. After use, clean tip and replace cap. 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 Also showed 60 % stenosis in mid RCA + Severe diffuse disease in the left PDA--> med management Assessment & Plan (02/26/2024 12:16 PM EDT): C.Cath on 12/21/23 at [facility]: Severe LAD disease + D1 [...] in the context of medical issues, early shelter, adjusting to living alone and language barrier. [...] Action stage. PLAN: 1. Follow up with [facility]: Not recommended for follow-up 2. Patient goal is to improve health 3. Behavioral Recommendations a. Comply with medical recommendations b. Begin incorporating healthy changes in daily life c. May utilize [facility] and/or hotline, if symptoms worsen d. May reach out to [facility] for additional support Assessment & Plan (07/11/2023 1:04 PM EDT): [facility] call counseling done, he declines for [...] Department Care Team Description 04/30/2025 Orders Only [facility] External Provider, [facility] 04/25/2025 Refill [facility] [address] [place] [address] Carolina Siddiqi MD 03/26/2025 Refill [facility] [address] [place] [address] Yeimi Saenz MD 02/21/2025 Refill [facility] [address] [place] [address] Carolina Siddiqi MD 02/21/2025 Refill [facility] [address] [place] [address] Carolina Siddiqi MD 02/11/2025 Results Follow-Up [facility] [address] [place] [address] Carolina Siddiqi MD Lipid Panel, Standard, Albumin, [...] Description 06/02/2025 11:30 AM EDT Office Visit [facility] MEDICINE [address] [place] [address] [phone] Carolina Siddiqi MD [address] [place] [address] [phone] 07/08/2025 10:45 AM EDT Office Visit [facility] MEDICINE [address] [place] [address] [phone] Carolina Siddiqi MD [address] [place] [address] [phone] Health Maintenance Due Date Last Done Comments [...] hyperglycemia, without long-term current use of insulin ([facility]) LIPID PANEL, STANDARD Routine 02/11/2025 9:15 AM [...] AM EDT Narrative 04/30/2025 1:41 PM EDT [place] [address] Fluoroscopy Report Signed Patient: Greg Land MR#: [id number] : 1960 Acct:[id number] Age/Sex: 64 / M ADM Date: 04/30/25 Loc: RAY Attending Dr: Glenda Rosa [facility]- Ordering Physician: Glenda Rosa Date of Service: 04/30/25 Procedure(s): FL upper GI w air w Ba Swallow Accession Number(s): [id number] cc: Carolina Siddiqi MD; Glenda Rosa [facility] EXAMINATION: XR UPPER GI SERIES WITH [...] 04/30/25 1338 DD/ 1000 TD/TT: 04/30/25 1024 Welt Slasher: [facility] Procedure Note Donotuseinterpreter, Image - 04/30/[address] [address] Fluoroscopy Report Signed Patient: Rosita Land#: [id number] : 9Acct:[id number] Age/Sex: 64 / MADM Date: 04/30/25 Loc: HO.XRAY Attending Dr: Glenda PELLETIER-CALEB Ordering Physician: Glenda Rosa-CALEB Date of Service: 04/30/25 Procedure(s): FL upper GI w air w Ba Swallow Accession Number(s): [id number] cc: Carolina Siddiqi MD; Glenda Rosa [facility]- EXAMINATION: XR UPPER GI SERIES WITH SMALL [...] 04/30/25 1338 DD/ 1000 TD/TT: 04/30/25 1024 Welt Slasher: AZUCENA us [facility] External Provider IMG FLU OROSCOPY PROCEDURES Final Result * (ABNORMAL) Lipid Panel, Standard (02/11/2025 9:15 AM EDT) Triglycerides 63 <150 mg/dL [facility] Comment:Desirable Triglyceri de: less than 150 mg/dLBorderline High Triglyceride 150-199 mg/dLHigh Triglyceride: 200-499 mg/dLVery High Triglyceride: greater than or equal to 5OO mg/dL Cholesterol 95 <200 mg/dL [facility] Comment:Desirable Cholestero l: less than 200 mg/dLBorderline High Cholesterol: 200-239 mg/dLHigh Cholesterol: greater than 239 mg/dL LDL Cholesterol Calculated 44 <100 mg/dL [facility] Comment:Desirable LDL: less than 100 mg/dLNear Optimal/Above Optimal LDL: 110- 129 mg/dLBorderline High LDL: 130-159 mg/dLHigh LDL: 160-189 mg/dLVery High LDL: greater than or equal to 190 mg/dL HDL Cholesterol 39(L) >40 mg/dL [facility] Comment:Desirable HDL: great er than 40 mg/dL Note: This HDL assay may give artificially low results in patients with liver disease. Blood Venous blood specimen / Unknown 02/11/2025 9:15 AM EDT 02/11/2025 9:15 AM EDT us Carolina Mahajan MD LAB BLOOD ORDERABLES Final Result [facility] [address] [place] [phone] * (ABNORMAL) Comprehensive Metabolic Panel (02/11/2025 9:15 AM EDT) Sodium 146(H) 135 - 145 mmol/L [facility] Potassium 4.6 3.3 - 5.1 mmol/L [facility] Chloride 114(H) 96 - 108 mmol/L [facility] Carbon Dioxide 28 22 - 29 mmol/L [facility] Anion Gap 9(L) 12 - 20 [facility] Urea Nitrogen (BUN) 11 9 - 16 mg/dL [facility] Creatinine, Serum 1.69(H) 0.5 - 1.4 mg/dL [facility] Estimated Glomerular Filt Rate 41 [facility] Comment:Chronic Kidney Disea se: Estimated GFR < 60 mL/min/1.29s6Ehlfbb Kidney Disease: Estimated GFR < 15 mL/min/1.73m2 Glucose 125(H) 60 - 115 mg/dL [facility] Calcium 9.1 8.4 - 10.2 mg/dL [facility] Bilirubin, Total 0.4 0.0 - 1.0 mg/dL [facility] Aspartate Amino Transferase 19 5 - 37 U/L [facility] Alanine Aminotransferase 15 0 - 40 U/L [facility] Total Protein 6.9 6.5 - 8.0 g/dL [facility] Albumin Level 3.8 3.5 - 5.0 g/dL [facility] Alkaline Phosphatase 81 39 - 117 U/L [facility] Blood Venous blood specimen / Unknown 02/11/2025 9:15 AM EDT 02/11/2025 9:15 AM EDT us Carolina Mahajan MD LAB BLOOD ORDERABLES Final Result Performing Organization Address City/[facility] Co de Phone Number [facility] [address] [place] [address] [phone] * (ABNORMAL) Albumin, Random Urine W/Creatinine (02/11/2025 9:13 AM EDT) Creatinine, Urine 72.34 mg/dL [facility] Microalbumin Urine 40.0 mg/L [facility] Microalbum Creatinine Ratio Ur 55.2(H) <30 ug/mg cr [facility] Comment:Albumin/Creatinine R atio Reference Ranges: Normal: < 30 ug/mg creatinine Microalbuminuria: 30 - 300 ug/mg creatinineClinical Albuminuria: > 300 ug/mg creatinine Urine (Urine, Random) 02/11/2025 9:13 AM EDT 02/11/2025 10:38 AM EDT us Carolina Mahajan MD LAB URINE ORDERABLES Final Result Performing Organization Address City/[facility]/ZIP Co de Phone Number [facility] [address] [place] [phone] * (ABNORMAL) POCT HGB A1C (12/10/2024 9:25 AM EDT) Hemoglobin A1C 6.2(A) 4.0 - 6.0 % QC Media Lot # [id number] Lot# Expiration Date Blood 12/10/2024 9:25 AM EDT Carolina Mahajan MD POINT OF CARE TEST EN TER/EDIT ORDERABLES Final Result * Cologuard?? colon cancer screening (09/27/2023 8:35 AM EST) Pathologist [facility] Cologuard Result Negative Negative 10/06/19 5:26 PM EST [employer] (CLIA #:[id number]) Comment: NEGATIVE TEST RESULT. A negative Cologuard [...] (Anamaria Morgan al, N Engl J Med 2014;370(14):0144-9043) The normal value (reference range) for this assay is negative. COLOGUARD RE-SCREENING RECOMMENDATION: Periodic colorectal cancer screening is an important part of preventive healthcare for asymptomatic individuals at average risk for colorectal cancer. Following a negative Cologuard result, the [place] [employer] and U.S. Multi-Society Task Force screening guidelines recommend a Cologuard re-screening interval of 3 years. References: [place] [employer] Guideline for Colorectal Cancer Screening: https://www.cancer.org/cancer/bnhpy-zvvqkj-ikrmhr/yexcgaqkp-uhcvatlfn-zvmnvgj/ac s-rec ommendations.html.; Kvng DK, Rose CR, Alaina LangK, Colorectal Cancer Screening: Recommendations for Physicians and Patients from the U.S. Multi-Society Task Force on Colorectal Cancer Screening , Am J Gastroenterology 2017; 112:9608-1002. TEST DESCRIPTION: Composite algorithmic analysis of stool [...] (Anamaria Morgan al, N Engl J Med 2014;370(14):4245-0136.) Cologuard may produce a false negative or false positive result (no colorectal cancer or precancerous polyp present at colonoscopy follow up). A negative Cologuard test result does not guarantee the absence of CRC or advanced adenoma (pre-cancer). The current Cologuard screening interval is every 3 years. ([place] [employer] Society and U.S. Multi-Society Task Force). Cologuard performance data in a 10,000 patient pivotal study using colonoscopy as the reference method can be accessed at the following location: www.ZeroFOX.UEIS/results. Additional description of the Cologuard test process, warnings and precautions can be found at www.Pristonesrd.UEIS. Stool specimen (specimen) 09/27/2023 8:35 AM EST 09/28/2023 3:50 PM EST Carolina Mahajan MD LAB MOLECULAR DIAGNOS TICS ORDERABLES Final Result [employer] (CLIA #:[id number]) [place] [address], [place] [phone] from Last 3 Months or Most Recently Relevant to Health Maintenance Insurance [id number] D[facility] [employer]PLETE Care Teams Corporate Events Director Relationship Specialty Start Date End Date Carolina Siddiqi MD [address] [place] [phone] PCP - General Internal Medicine 07/11/23 Jolie Thompson Community Health Worker Case Management 02/14/24
--- OUTSIDE RECORDS SUMMARY | 2025-05-13 12:19 | XMS_ITS | Encounter Summary ---
Author Organization [employer] Address [address] [facility] 7t [place] [address] Care Team Providers Care Medical Imaging Specialist Name Role Phone Carolina Siddiqi MD Primary Care Provide r Encounter Details Date Type Department Care Team ([facility] st Contact Info) Description 02/23/2024 Orders Only [facility] [address] [place] [address] Yeimi Saenz MD [address] [place] [address] Social History Tobacco Use Types Packs/Day Years [...] is your housing situation today? I have negrtio phillips 07/03/[address] you [...] 06/02/2025 11:30 AM EDT Office Visit [facility] [address] [place] [phone] Carolina Siddiqi MD [address] [place] [phone] 07/08/2025 10:45 AM EDT Office Visit [facility] [address] [place] [phone] Carolina Siddiqi MD [address] [place] [address] [phone] documented as of this encounter Visit Diagnoses Not on filedocumented in this encounter Additional Health Concerns Assessment Noted Time PHQ-9 Depression Total Score: 23 023 10:38 AM EDT documented as of this encounter Care Teams Medical Imaging Specialist Relationship Specialty Start Date End Date Carloina Siddiqi MD [address] [place] [phone] PCP - General Internal Medicine 07/11/23 Jolie Thompson Community Health Worker Case Management 02/14/24 documented as of this encounter
--- OUTSIDE RECORDS SUMMARY | 2025-05-13 12:19 | XMS_ITS | Encounter Summary ---
Author Organization [facility] [employer] Address [address] [facility] [address] [place] [address] Care Team Providers Care Firestopper Installer Name Role Phone Carolina Siddiqi MD Primary Care Provide r Encounter Details Date Type Department Care Team ([facility] st Contact Info) Description 07/19/2024 Orders Only [facility] [address] [place] [address] Carolina Siddiqi MD [address] [place] [address] Social History Tobacco Use Types Packs/Day Years [...] Description 06/02/2025 11:30 AM EDT Office Visit [facility] [address] [place] [phone] Carolina Siddiqi MD [address] [place] [phone] 07/08/2025 10:45 AM EDT Office Visit [facility] [address] [place] [phone] Carolina Siddiqi MD [address] [place] [address] [phone] documented as of this encounter Goals Goal [...] documented as of this encounter Care Teams Firestopper Installer Relationship Specialty Start Date End Date Carolina Siddiqi MD [address] [place] [address] PCP - General Internal Medicine 07/11/23 Jolie Thompson Community Health Worker Case Management 02/14/24 documented as of this encounter
[2025-05-13 21:08] VITALS: BMI 22.7
== END 2025-05-13 11:54 | disposition home or self-care (01) ==
LOC: HO.ENCR 10:50
PROVIDERS: PCP Internal Medicine; Visit Provider Dietitian, Registered
DX: R63.4 Abnormal weight loss (principal)

== ENCOUNTER → 2025-05-13 10:48 | Outpatient (BNVA) | payer OTHER, SELFPAY | PROVIDERS: PCP Internal Medicine; Visit Provider Dietitian, Registered | DX: R63.4 Abnormal weight loss (principal); Z71.3 Dietary counseling and surveillance | CPT/HCPCS: 97802 ==

== ENCOUNTER 2025-05-20 08:18 | Day surgery (SDC) | payer OTHER, SELFPAY ==
--- OUTSIDE RECORDS SUMMARY | 2025-05-09 11:41 | XMS_ITS | Clinical Summary ---
Author Organization [employer] Address [address] [facility] [address] [place] [address] Care Team Providers Care Concrete Placement Equipment Operator Name Role Phone Carolina Siddiqi MD [...] mouth Once per day. 30 tablet 2 024 Active lidocaine (Lidoderm) 5 % patch APPLY 1 PATCH TOPICALLY TO SKIN, LEAVE ON FOR 12 HOURS AND OFF FOR 12 HOURS DIRECTED FOR 28 DAYS 024 Active clotrimazole (Lotrimin) 1 % cream APPLY TOPICALLY TO THE AFFECTED AREA(S) OF THE SKIN AND TOENAILS EVERY DAY DIRECTED FOR 12 WEEKS 024 Active famotidine (Pepcid) 20 MG tabletIndications :Gastroesophageal reflux disease, unspecified whether esophagitis present Take 1 tablet (20 mg) by mouth Once per day. 30 tablet 11 024 Active ondansetron ODT (Zofran-ODT) 8 MG disintegrating tabletIndications :Gastroesophageal reflux disease, unspecified whether esophagitis present,Nausea DISSOLVE 1 TABLET ENCIMA DE LENGUA EVERY 8 HOURS NEEDED FOR NAUSEA FOR UP TO 7 DAYS 20 tablet Active FREESTYLE LITE test stripIndications: Type 2 diabetes mellitus with hyperglycemia, without long-term current use of insulin ([facility]) Use to test blood sugar 2 times daily 100 each 12 024 2024 Active Blood Glucose Monitoring Suppl (FreeStyle [place] Lite) w/Device kitIndications:Ty pe 2 diabetes mellitus with hyperglycemia, without long-term current use of insulin ([facility]) Use to test blood sugar 2 times daily 1 kit 024 Active sacubitril-valsar stoddard (Entresto) 97-103 MG tabletIndications :Primary hypertension,Um Rn nilam systolic congestive heart failure ([facility]) Take 1 tablet by mouth 2 times daily. 60 tablet 12 024 2024 Active TRUEplus Lancets 33G miscIndications:T ype 2 diabetes mellitus with hyperglycemia, without long-term current use of insulin ([facility]) USE DIRECTED TO TEST BLOOD SUGAR EVERY DAY 100 each 11 024 Active glucose blood (FREESTYLE LITE) test stripIndications: Type 2 diabetes mellitus with hyperglycemia, without long-term current use of insulin ([facility]) USE DIRECTED TO TEST BLOOD SUGAR ONCE DAILY 100 each 11 024 Active Blood Glucose Monitoring Suppl (ONE TOUCH ULTRA 2) w/Device kit Use to check BS twice daily as directed 1 kit 024 Active glucose blood (OneTouch Ultra Test) test strip Use to check BS twice daily as directed 100 each 12 024 2024 Active Alcohol Swabs (Alcohol Prep) 70 % padsIndications:T ype 2 diabetes mellitus with hyperglycemia, without long-term current use of insulin ([facility]) USE DIRECTED TO TEST BLOOD SUGAR TWICE DAILY 100 each 3 025 Active fluticasone (Flonase) 50 MCG/ACT nasal sprayIndications: Rhinitis, unspecified type Administer 1-2 sprays into each nostril Once per day. Shake gently. Before first use, prime pump. After use, clean tip and replace cap. 16 g 025 2025 Active Lancets (OneTouch Delica Plus [id number]) miscIndications:T ype 2 diabetes mellitus with hyperglycemia, without long-term current use of insulin ([facility]) USE TO TEST BLOOD SUGAR TWICE DAILY DIRECTED 100 each 5 025 Active ciclopirox (Penlac) 8 % solutionIndicatio ns:Onycholysis Apply topically at bedtime. 6 mL 1 025 Active Trulicity 0.75 MG/0.5ML solution auto-injector Inject 0.75 mg as directed 1 (one) time per week. 2 mL 11 025 Active ticagrelor (Brilinta) 90 MG tablet Take 1 tablet (90 mg) by mouth 2 times daily. 60 tablet Active metoprolol succinate XL (Toprol-XL) 50 MG 24 hr tablet TAKE 1 TABLET BY MOUTH EVERY MORNING 90 tablet 3 025 Active Brilinta 90 MG tablet TAKE 1 TABLET BY MOUTH TWICE DAILY IN THE MORNING AND IN THE EVENING 60 tablet 025 Active Brilinta 90 MG tablet TAKE 1 TABLET BY MOUTH TWICE DAILY IN THE MORNING AND IN THE EVENING 60 tablet 025 2024 Discontinued Active Problems Problem Noted Date [...] artery disease of n ative artery of [place] heart with stable angina pectoris 01/26/2024 Overview (01/26/2024): C.Cath on 12/21/23 at [facility]: Severe LAD disease + D1 stenosis--> had PCI/drug eluting stent. Also showed 60 % stenosis in mid RCA + Severe diffuse disease in the left PDA--> med management Assessment & Plan (02/26/2024 12:16 PM EDT): C.Cath on 12/21/23 at [facility]: Severe LAD disease + D1 stenosis--> had [...] & Plan (07/14/2023 8:37 AM EDT): Assessment: Patient with depressive symptoms and SI with no plan or intent. No risk for self-harm or HI. Reason for visit was to assess symptoms and provide support to patient. Symptoms are present in the context of medical issues, early correction, adjusting to living alone and language barrier. Provided psychoeducation around depression and healthy lifestyle changes. Patient agreed for OP therapy referral. At this time Greg Land meets criteria for Visit Diagnoses: Problem List Items Addressed This Visit Other Depressive state - Primary Relevant Orders Referral to Behavioral Health Loneliness Patient ready to address current needs Yes Strengths include support from daughter. Patient is in Action stage. PLAN: 1. Follow up with [facility]: Not recommended for follow-up 2. Patient goal is to improve health 3. Behavioral Recommendations a. Comply with medical recommendations b. Begin incorporating healthy changes in daily life c. May utilize [facility] and/or hotline, if symptoms worsen d. May reach out to [facility] for additional support Assessment & Plan (07/11/2023 1:04 PM EDT): [facility] call counseling done, he declines [...] Encounters Date Type Department Care Team Description 04/30/2025 Orders Only [facility] External Provider, [facility] 04/25/2025 Refill [facility] MED & PEDS [address] [place] [address] Carolina Siddiqi MD 03/26/2025 Refill [facility] MEDICINE [address] [place] [address] Yeimi Saenz MD 02/21/2025 Refill [facility] MED [facility] PEDS [address] [place] [address] Carolina Siddiqi MD 02/21/2025 Refill [facility] [address] [place] [address] Carolina Siddiqi MD 02/11/2025 Results Follow-Up [facility] [address] [place] [address] Carolina Siddiqi MD Lipid Panel, Standard, Albumin, Random Urine W/Creatinine, Comprehensive Metabolic Panel from Last 3 Months Immunizations Immunization Administration Dates Next Due Influenza injectable quadrivalent [...] 72 12/10/2024 9:20 AM EDT Temperature 35.6 C (96 F) 12/10/2024 9:20 AM EDT Respiratory Rate 16 12/10/2024 9:20 AM EDT Oxygen Saturation 100% 12/10/2024 9:20 AM EDT Inhaled Oxygen Concentration - - Weight 60.8 kg (134 lb) 12/10/2024 9:20 AM EDT Height 160 cm (5' 3 ) 12/10/2024 9:20 AM EDT Body Mass Index 23.74 12/10/2024 9:20 AM EDT Plan of Treatment Upcoming Encounters Date Type Department Care Team (Late st Contact Info) Description 06/02/2025 11:30 AM EDT Office Visit [facility] [address] [place] [address] [phone] Carolina Siddiqi MD [address] [place] [address] [phone] 07/08/2025 10:45 AM EDT Office Visit [facility] [address] [place] [address] [phone] Carolina Siddiqi MD [address] [place] [address] [phone] Health Maintenance Due Date Last Done Comments CT Colonography 1959 Colonoscopy 1959 FIT 1959 FOBT 1959 Sigmoidoscopy 1959 Diabetes: Foot Exam 1969 Hepatitis C Screening 1977 DTaP/Tdap/Td Vaccines (2 - Td or Tdap) 10/02/2023 10/02/2013 COVID-19 Vaccine ( season) 2024 02/19/2021, 01/22/2021 Depression Monitoring 08/27/2024 02/26/2024, 024 Eye Exam 01/16/2025 01/17/2024, 05/0 04/2024, 01/17/2024, Additional history exists Influenza Vaccine (#1) 2025 , 05/31/2016, 07/07/2014, Additional history exists Diabetes: Hemoglobin A1C 06/11/2025 025, 07/01/2024, 02/26/2024, Additional history exists Alcohol/Substance Use Screening 07/01/2025 07/01/2024 SDOH Screening 10/01/2025 10/01/2024 Tobacco Screening 12/10/2025 12/10/2024 Diabetes: Urine Protein Screening 02/11/2026 02/11/2025 Lipid Panel 02/11/2026 02/11/2025, 11/2024, 06/26/2024 Colorectal Cancer Screening 09/27/2026 FIT DNA/Cologuard 09/27/2026 09/27/2023 RSV Patients and Patients Aged 60 years or older Completed 01/26/2024 Zoster Vaccines Completed 06/17/2024, 01/26/2024 Pneumococcal Vaccine: [...] patient's age to complete this topic Meningococcal B Vaccine Aged Out No l onger eligible based on patient's age to complete [...] Procedure Name Priority Date/Time Associated Diagnosis Comments FL UPPER GI W AIR W BARIUM SWALLOW Routine 04/30/2025 10:00 AM EDT COMPREHENSIVE METABOLIC PANEL Routine 02/11/2025 9:15 AM EDT Type 2 diabetes mellitus with hyperglycemia, without long-term current use of insulin ([facility]) LIPID PANEL, STANDARD Routine 02/11/2025 9:15 AM EDT Type 2 diabetes mellitus with hyperglycemia, without long-term current use of insulin (CMS/HCC) ALBUMIN, RANDOM URINE W/CREATININE Routine 02/11/2025 9:13 AM EDT Type 2 diabetes mellitus with hyperglycemia, without long-term current use of insulin (CMS/HCC) POCT GLYCATED HEMOGLOBIN, TOTAL Routine 12/10/2024 9:25 AM EDT Type 2 diabetes mellitus with hyperglycemia, without long-term current use of insulin (CMS/HCC) LAB COLOGUARD COLON CANCER SCREEN Routine 09/27/2023 8:35 AM EST Colon cancer screening from Last 3 Months or Most Recently Relevant to Health Maintenance Results * FL Upper GI w/air w/Barium Swallow (04/30/2025 10:00 AM EDT) Anatomical Region Laterality Modality Body Radiographic Keri ging 04/30/2025 10:0 0 AM EDT Narrative 04/30/2025 1:41 PM EDT [place] [address] Fluoroscopy Report Signed Patient: Greg Land MR#: [id number] : 1960 Acct:[id number] Age/Sex: 64 / M ADM Date: 04/30/25 Loc: RAY Attending Dr: Glenda Rosa [facility]- Ordering Physician: Glenda Rosa Date of Service: 04/30/25 Procedure(s): FL upper GI w air w Ba Swallow Accession Number(s): [id number] cc: Carolina Siddiqi MD; Glenda Rosa [facility] EXAMINATION: XR UPPER GI SERIES WITH SMALL BOWEL CLINICAL INFORMATION: Gastroesophageal reflux disease COMPARISON: Modified barium swallow 05/15/2024. TECHNIQUE: Initially barium swallow with saltine crackers and barium paste was performed in upright view. Subsequently thick barium and effervescent granules were obtained in upright view in multiple projections. Patient was placed supine and prone lying and images were obtained. FINDINGS: Following oral administration of saltine crackers and barium paste in upright view there is normal oral mastication and propagation bolus from the oral cavity through the pharynx, esophagus into stomach. No intrinsic obstruction, filling defects or extrinsic compression seen. On oral administration of thick barium and effervescent granules granules, there is an prominent cervical- esophagus sphincter indenting the posterior sagittal wall. There is mild obstruction. No laryngeal penetration or aspiration. No retention in the valleculae or piriform sinuses. On placing patient supine and prone lying the course, caliber and peristalsis of the stomach, duodenal bulb and sweep is normal. There is a small reducible hiatal hernia with mild gastroesophageal reflux. FLUOROSCOPY TIME: 3 minutes and 20 seconds DOSE AREA PRODUCT: 2826 uGy-m2 (microgray-meter squared) FL/FL upper GI w air w Ba Swallow IMPRESSION: Small cyst sliding hiatal hernia with mild gastroesophageal reflux. Prominent cricoesophageal sphincter indenting posterior cervical esophageal wall and mild obstruction suspected. The lower esophagus, stomach, duodenal bulb and C-loop is normal Electronically signed by: Dougie Billy MD 04/30/2025 01:38 PM EDT RP Dictated By: Dougie Billy MD Signed By: <Electronically signed by Dougie Billy MD in OV> 04/30/25 1338 DD/ 1000 TD/TT: 04/30/25 1024 Strategic Partnership Manager: [facility] Procedure Note Donotuseinterpreter, Image - 04/30/[address] [address] Fluoroscopy Report Signed Patient: Rosita Land#: [id number] : 9Acct:[id number] Age/Sex: 64 / MADM Date: 04/30/25 Loc: HO.XRAY Attending Dr: Glenda PELLETIER-CALEB Ordering Physician: Glenda Rosa-CALEB Date of Service: 04/30/25 Procedure(s): FL upper GI w air w Ba Swallow Accession Number(s): [id number] cc: Carolina Siddiqi MD; Glenda Rosa [facility]- EXAMINATION: XR UPPER GI SERIES WITH SMALL BOWEL CLINICAL INFORMATION: Gastroesophageal reflux disease COMPARISON: Modified barium swallow 05/15/2024. TECHNIQUE: Initially barium swallow with saltine crackers and barium paste was performed in upright view. Subsequently thick barium and effervescent granules were obtained in upright view in multiple projections. Patient was placed supine and prone lying and images were obtained. FINDINGS: Following oral administration of saltine crackers and barium paste in upright view there is normal oral mastication and propagation bolus from the oral cavity through the pharynx, esophagus into stomach. No intrinsic obstruction, filling defects or extrinsic compression seen. On oral administration of thick barium and effervescent granules granules, there is an prominent cervical- esophagus sphincter indenting the posterior sagittal wall. There is mild obstruction. No laryngeal penetration or aspiration. No retention in the valleculae or piriform sinuses. On placing patient supine and prone lying the course, caliber and peristalsis of the stomach, duodenal bulb and sweep is normal. There is a small reducible hiatal hernia with mild gastroesophageal reflux. FLUOROSCOPY TIME: 3 minutes and 20 seconds DOSE AREA PRODUCT: 2826 uGy-m2 (microgray-meter squared) FL/FL upper GI w air w Ba Swallow IMPRESSION: Small cyst sliding hiatal hernia with mild gastroesophageal reflux. Prominent cricoesophageal sphincter indenting posterior cervical esophageal wall and mild obstruction suspected. The lower esophagus, stomach, duodenal bulb and C-loop is normal Electronically signed by: Dougie Billy MD 04/30/2025 01:38 PM EDT Dictated By: Dougie Billy MD Signed By: <Electronically signed by Dougie Billy MD in OV> 04/30/25 1338 DD/ 1000 TD/TT: 04/30/25 1024 Strategic Partnership Manager: AZUCENA us [facility] External Provider IMG FLU OROSCOPY PROCEDURES Final Result * (ABNORMAL) Lipid Panel, Standard (02/11/2025 9:15 AM EDT) Triglycerides 63 <150 mg/dL [facility] Comment:Desirable Triglyceri de: less than 150 mg/dLBorderline High Triglyceride 150-199 mg/dLHigh Triglyceride: 200-499 mg/dLVery High Triglyceride: greater than or equal to 5OO mg/dL Cholesterol 95 <200 mg/dL [facility] Comment:Desirable Cholestero l: less than 200 mg/dLBorderline High Cholesterol: 200-239 mg/dLHigh Cholesterol: greater than 239 mg/dL LDL Cholesterol Calculated 44 <100 mg/dL [facility] Comment:Desirable LDL: less than 100 mg/dLNear Optimal/Above Optimal LDL: 110- 129 mg/dLBorderline High LDL: 130-159 mg/dLHigh LDL: 160-189 mg/dLVery High LDL: greater than or equal to 190 mg/dL HDL Cholesterol 39(L) >40 mg/dL [facility] Comment:Desirable HDL: great er than 40 mg/dL Note: This HDL assay may give artificially low results in patients with liver disease. Blood Venous blood specimen / Unknown 02/11/2025 9:15 AM EDT 02/11/2025 9:15 AM EDT us Carolina Mahajan MD LAB BLOOD ORDERABLES Final Result [facility] [address] [place] [phone] * (ABNORMAL) Comprehensive Metabolic Panel (02/11/2025 9:15 AM EDT) Sodium 146(H) 135 - 145 mmol/L [facility] Potassium 4.6 3.3 - 5.1 mmol/L [facility] Chloride 114(H) 96 - 108 mmol/L [facility] Carbon Dioxide 28 22 - 29 mmol/L [facility] Anion Gap 9(L) 12 - 20 [facility] Urea Nitrogen (BUN) 11 9 - 16 mg/dL [facility] Creatinine, Serum 1.69(H) 0.5 - 1.4 mg/dL [facility] Estimated Glomerular Filt Rate 41 [facility] Comment:Chronic Kidney Disea se: Estimated GFR < 60 mL/min/1.93q8Fugifs Kidney Disease: Estimated GFR < 15 mL/min/1.73m2 Glucose 125(H) 60 - 115 mg/dL [facility] Calcium 9.1 8.4 - 10.2 mg/dL [facility] Bilirubin, Total 0.4 0.0 - 1.0 mg/dL [facility] Aspartate Amino Transferase 19 5 - 37 U/L [facility] Alanine Aminotransferase 15 0 - 40 U/L [facility] Total Protein 6.9 6.5 - 8.0 g/dL [facility] Albumin Level 3.8 3.5 - 5.0 g/dL [facility] Alkaline Phosphatase 81 39 - 117 U/L [facility] Blood Venous blood specimen / Unknown 02/11/2025 9:15 AM EDT 02/11/2025 9:15 AM EDT us Carolina Mahajan MD LAB BLOOD ORDERABLES Final Result Performing Organization Address City/[facility] Co de Phone Number [facility] [address] [place] [address] [phone] * (ABNORMAL) Albumin, Random Urine W/Creatinine (02/11/2025 9:13 AM EDT) Creatinine, Urine 72.34 mg/dL [facility] Microalbumin Urine 40.0 mg/L [facility] Microalbum Creatinine Ratio Ur 55.2(H) <30 ug/mg cr [facility] Comment:Albumin/Creatinine R atio Reference Ranges: Normal: < 30 ug/mg creatinine Microalbuminuria: 30 - 300 ug/mg creatinineClinical Albuminuria: > 300 ug/mg creatinine Urine (Urine, Random) 02/11/2025 9:13 AM EDT 02/11/2025 10:38 AM EDT us Carolina Mahajan MD LAB URINE ORDERABLES Final Result Performing Organization Address City/[facility]/ZIP Co de Phone Number [facility] [address] [place] [phone] * (ABNORMAL) POCT HGB A1C (12/10/2024 9:25 AM EDT) Hemoglobin A1C 6.2(A) 4.0 - 6.0 % QC Media Lot # [id number] Lot# Expiration Date Blood 12/10/2024 9:25 AM EDT Carolina Mahajan MD POINT OF CARE TEST EN TER/EDIT ORDERABLES Final Result * Cologuard?? colon cancer screening (09/27/2023 8:35 AM EST) Pathologist [facility] Cologuard Result Negative Negative 10/06/19 5:26 PM EST [facility] (CLIA #:[id number]) Comment: NEGATIVE TEST RESULT. A negative Cologuard result indicates a low likelihood that a colorectal cancer (CRC) or advanced adenoma (adenomatous polyps with more advanced pre-malignant features) is present. The chance that a person with a negative Cologuard test has a colorectal cancer is less than 1 in 1500 (negative predictive value >99.9%) or has an advanced adenoma is less than 5.3% (negative predictive value 94.7%). These data are based on a prospective cross-sectional study of 10,000 individuals at average risk for colorectal cancer who were screened with both Cologuard and colonoscopy. (Anamaria Morgan al, N Engl J Med 2014;370(14):6206-9445) The normal value (reference range) for this assay is negative. COLOGUARD RE-SCREENING RECOMMENDATION: Periodic colorectal cancer screening is an important part of preventive healthcare for asymptomatic individuals at average risk for colorectal cancer. Following a negative Cologuard result, the [place] [employer] and U.S. Multi-Society Task Force screening guidelines recommend a Cologuard re-screening interval of 3 years. References: [place] [employer] Guideline for Colorectal Cancer Screening: https://www.cancer.org/cancer/jwjos-gzmcsz-ligomx/ldajxmivu-axrkijvhw-wpqzgus/ac s-rec ommendations.html.; Kvng DK, Rose CR, Alaina LangK, Colorectal Cancer Screening: Recommendations for Physicians and Patients from the U.S. Multi-Society Task Force on Colorectal Cancer Screening , Am J Gastroenterology 2017; 112:6315-6477. TEST DESCRIPTION: Composite algorithmic analysis of stool DNA-biomarkers with hemoglobin immunoassay. Quantitative values of individual biomarkers are not [...] (Anamaria Morgan al, N Engl J Med 2014;370(14):0809-5754.) Cologuard may produce a false negative or false positive result (no colorectal cancer or precancerous polyp present at colonoscopy follow up). A negative Cologuard test result does not guarantee the absence of CRC or advanced adenoma (pre-cancer). The current Cologuard screening interval is every 3 years. ([place] [employer] and U.S. Multi-Society Task Force). Cologuard performance data in a 10,000 patient pivotal study using colonoscopy as the reference method can be accessed at the following location: www.[employer]/results. Additional description of the Cologuard test process, warnings and precautions can be found at www.[employer]. Stool specimen (specimen) 09/27/2023 8:35 AM EST 09/28/2023 3:50 PM EST Carolina Mahajan MD LAB MOLECULAR DIAGNOS TICS ORDERABLES Final Result [facility] (CLIA #:[id number]) [place] [address], [place] [phone] from Last 3 Months or Most Recently Relevant to Health Maintenance Insurance [id number] DUAL COMPLETE Care Teams Concrete Placement Equipment Operator Relationship Specialty Start Date End Date Carolina Siddiqi MD [address] [place] [phone] PCP - General Internal Medicine 07/11/23 Jolie Thompson Community Health Worker Case Management 02/14/24
--- OUTSIDE RECORDS SUMMARY | 2025-05-09 11:41 | XMS_ITS | Encounter Summary ---
Author Organization [employer] Address [address] [facility] 7t [place] [address] Care Team Providers Care Switch Engineer Name Role Phone Carolina Siddiqi MD Primary Care Provide r Encounter Details Date Type Department Care Team ([facility] st Contact Info) Description 02/23/2024 Orders Only [facility] MED[facility]INE [address] [place] [address] Yeimi Saenz MD [address] [place] [address] Social History Tobacco Use Types Packs/Day Years [...] AM EDT documented as of this encounter Functional Status * Over the past 2 weeks, how often have you been bothered by any of the following problems? Question Answer Date of Assessment Author Patient Health Questionnaire -2 Score 1 02/26/2024 10:07 AM Anayeli Steven MA * Over the past 2 weeks, how often have you been bothered by any of the following problems? Question Answer Date of Assessment Author Little interest or pleasure in doing things Several days 02/26/2024 10:07 AM Yeyo Steven MA Feeling down, depressed, or hopeless Not at all 02/26/2024 10:07 AM Yeyo Steven MA Trouble falling or staying asleep, or sleeping too much More than half the days 02/26/2024 10:07 AM Yeyo Steven MA Feeling tired or having little energy Several days 02/26/2024 10:07 AM Yeyo Steven MA Poor appetite or overeating Several days 02/26/2024 10:07 AM Yeyo Steven MA Feeling bad about yourself - or that you are a failure or have let yourself or your family down Several days 02/26/2024 10:07 AM Yeyo Steven MA Trouble concentrating on things, such as reading the newspaper or watching television More than half the days 02/26/2024 10:07 AM Yeyo Steven MA Moving or speaking so slowly that other people could have noticed? Or the opposite - being so fidgety or restless that you have been moving around a lot more than usual. More than half the days 02/26/2024 10:07 AM EDT Yeyo Townsend MA Thoughts that you would be better off or hurting yourself in some way Not at all 02/26/2024 10:07 AM EDT Yeyo Townsend MA Patient Health Questionnaire-9 Score 10 02/26/2024 10:07 AM EDT Yeyo Townsend MA documented as of this encounter Plan of Treatment Upcoming Encounters Date Type Department Care Team (Late st Contact Info) Description 06/02/2025 11:30 AM EDT Office Visit [facility] MEDICINE [address] [place] [phone] Carolina Siddiqi MD [address] [place] [phone] 07/08/2025 10:45 AM EDT Office Visit [facility] MEDICINE [address] [place] [phone] Carolina Siddiqi MD [address] [place] [address] [phone] documented as of this encounter Visit Diagnoses Not on filedocumented in this encounter Additional Health Concerns Assessment Noted Time PHQ-9 Depression Total Score: 23 023 10:38 AM EDT documented as of this encounter Care Teams Switch Engineer Relationship Specialty Start Date End Date Carolina Siddiqi MD [address] [place] [phone] PCP - General Internal Medicine 07/11/23 Jolie Thompson Community Health Worker Case Management 02/14/24 documented as of this encounter
--- OUTSIDE RECORDS SUMMARY | 2025-05-09 11:41 | XMS_ITS | Encounter Summary ---
Author Organization [employer] Address [address] [facility] 7t [place] [address] Care Team Providers Care Futures Trader Name Role Phone Carolina Siddiqi MD Primary Care Provide r Encounter Details Date Type Department Care Team ([facility] st Contact Info) Description 07/19/2024 Orders Only [facility] MEDICINE [address] [place] [address] Carolina Siddiqi MD [address] [place] [address] Social History Tobacco Use Types Packs/Day Years [...] Description 06/02/2025 11:30 AM EDT Office Visit [facility] MEDICINE [address] [place] [phone] Carolina Siddiqi MD [address] [place] [phone] 07/08/2025 10:45 AM EDT Office Visit [facility] MEDICINE [address] [place] [phone] Carolina Siddiqi MD [address] [place] [address] [phone] documented as of this encounter Goals Goal Patient Goal Type Associated Problems Recent Progress Patient-Stated? Author Blood Pressure < 140/90 Blood Pressure 135/72(2024 9:20 AM EDT) No Ivana Puente, PharmD Take your medication every day Lifestyle No Ivana Puente, PharmD Hemoglobin A1c < 7 Result Component 6.2( 9:25 AM EDT) No Kanchan Puenteona, PharmD documented as of this encounter Visit Diagnoses Not on filedocumented in this encounter Additional Health Concerns Assessment Noted Time PHQ-9 Depression Total Score: 10 02/25/ 024 10:07 AM EDT documented as of this encounter Care Teams Futures Trader Relationship Specialty Start Date End Date Carolina Siddiqi MD [address] [place] [address] PCP - General Internal Medicine 07/11/23 Jolie Thompson Community Health Worker Case Management 02/14/24 documented as of this encounter
--- NOTE | 2025-05-19 11:51 | HO.ANESPROP2 ---
Documented by User: Joan Maria NP 05/19/25 12:03 HPI - Anesthesia Eval Consult details Narrative: 64 yr old male for Upper Endoscopy and Colonoscopy Ischemic cardiomyopathy: moderate LV systolic dysfunction without signs or symptoms of heart failure. On Entresto, metoprolol, Farxiga CAD with prior anterior STEMI status post LAD drug-eluting stent for 100% lad occlusion in December of 2023: No acute ischemia on 01/2025 myocardial perfusion study, see below Stage 3 chronic kidney disease in the setting of longstanding diabetes mellitus and coronary disease Anesthesia Pre-Procedure Meds Is the patient on any of the following meds?: GLP1/DPP4 and SGLT2 Inhib PMFSH Active Problems Active Problems: All Active Problems (Updated 05/13/25 @ 21:[address], LDN) Weight loss (Acute) Anemia (Acute) CKD (chronic kidney disease) (Acute) CAD (coronary artery disease) (Acute) Patellofemoral arthritis of right knee (Acute) Diabetes (Acute) S/P cardiac catheterization (Acute) S/P cardiac cath (Acute) Ischemic cardiomyopathy (Acute) NSTEMI (non-ST elevated myocardial infarction) (Acute) Past Medical History Medical History Kidney calculi Carotid artery disease Acute HFrEF (heart failure with reduced ejection fraction) Diabetes HLD (hyperlipidemia) HTN (hypertension) Surgical History Surgical History History of cholecystectomy S/P cardiac catheterization S/P cardiac cath H/O heart artery stent Hx of appendectomy Social History Social History Household Members: None Housing: Apartment Do you presently have visiting nurse or other home services: No Patient Tobacco Use Status: Never used Tobacco Use of substances other than those prescribed or required for medical reasons: No Are you DNR?: No Advance Directives: No Advance Directives Information Provided: Yes Poor oral hygiene: No Meds Allergies Allergy/AdvReac Type Severity Reaction Status Date / Time No Known Allergies Allergy Verified 02/12/25 14:48 Home Medications ?Medication ?Instructions ?Recorded ?Confirmed ?Last Taken ?Type dulaglutide 0.75 mg/0.5 mL mg subcut QWEEK 05/08/24 06/04/25 09/02/25 History subcutaneous pen injector (Trulicity) metoprolol succinate 50 mg 50 mg PO DAILY 01/17/24 02/12/25 Unknown History tablet,extended release 24 hr ticagrelor 90 mg tablet (Brilinta) 90 mg PO BID 01/17/24 02/12/25 05/16/25 History aspirin 81 mg tablet,delayed 81 mg PO QAM 07/17/24 02/12/25 Unknown History release sacubitril 97 mg-valsartan 103 mg 1 tab PO BID 09/06/24 02/12/25 Unknown History tablet (Entresto) lancets 33 gauge (OneTouch Delica #100 ea 10/23/24 02/12/25 Unknown History Plus Lancet) Exam Pertinent Lab Results Pertinent Lab Results: Laboratory Tests 10/04/24 02/11/25 11:18 09:15 WBC 5.4 RBC 4.46 L D Hgb 12.0 L Hct 36.9 L Plt Count 166 D Sodium 146 H Potassium 4.6 BUN 11 Creatinine 1.69 H Narrative Narrative: Myocardial perfusion study 01/2025 Impression: 1. 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 No clear ischemia. 2. Gated LVEF is 41% during stress and 33% during rest. Correlate with echocardiogram. 3. Transient ischemic dilatation not present.. Echo 04/2024 Conclusions: - The left ventricular systolic function is moderately decreased. The visually estimated ejection fraction is between 35-40%. - The apex, apical lateral, apical septum, and mid anteroseptal segments are akinetic. - No obvious valvular pathology seen on this study. Documented by User: Reji Hernandez MD 05/20/25 10:16 HPI - Anesthesia Eval Anesthesia Pre-Procedure Meds If yes to any meds - educate patient: Pt education - increased risk of aspiration and/or euvolemic DKA [facility] Past Medical History Medical History Kidney calculi Carotid artery disease Acute HFrEF (heart failure with reduced ejection fraction) Diabetes HLD (hyperlipidemia) HTN (hypertension) Functional capacity: independent ambulation Family History Family history of problems with anesthesia: No Surgical History Surgical History History of cholecystectomy S/P cardiac catheterization S/P cardiac cath H/O heart artery stent Hx of appendectomy History of Problems with Anesthesia: No Social History Social History Household Members: None Housing: Apartment Do you presently have visiting nurse or other home services: No Patient Tobacco Use Status: Never used Tobacco Use of substances other than those prescribed or required for medical reasons: No Are you DNR?: No Advance Directives: No Advance Directives Information Provided: Yes Poor oral hygiene: No Meds Allergies Allergy/AdvReac Type Severity Reaction Status Date / Time No Known Allergies Allergy Verified 02/12/25 14:48 Home Medications ?Medication ?Instructions ?Recorded ?Confirmed ?Last Taken ?Type dulaglutide 0.75 mg/0.5 mL mg subcut QWEEK 01/17/24 02/12/25 05/13/25 History subcutaneous pen injector (Trulicity) metoprolol succinate 50 mg 50 mg PO DAILY 01/17/24 02/12/25 Unknown History tablet,extended release 24 hr ticagrelor 90 mg tablet (Brilinta) 90 mg PO BID 01/17/24 02/12/25 05/16/25 History aspirin 81 mg tablet,delayed 81 mg PO QAM 07/17/24 02/12/25 Unknown History release sacubitril 97 mg-valsartan 103 mg 1 tab PO BID 09/06/24 02/12/25 Unknown History tablet (Entresto) lancets 33 gauge (OneTouch Delnolan #100 ea 10/23/24 02/12/25 Unknown History Plus Lancet) Exam Exam Date and Time: 05/20/2025 Airway Mallampati Class: III TM Dist: >3cm Neck ROM: Full Denture: Upper Loose/Missing/Broken Teeth: Yes Heart: rrr Lungs: lungs cta Other: nor, mal Assessment and Plan Assessment Anesthesia Assessment: Anesthesia Plan Discussed and Chart Reviewed Final Anesthetic Review Family History of Problems with Anesthesia: No History of Problems with Anesthesia: No NPO: Yes ASA Class: III Final Preanesthetic Review: No Changes in Pt Med Stat, Meds/Allgs Chart Reviewed, Consent Obtained/Reviewed and Anes Risks/Benef Reviewed Patient Risk: Intermediate Procedure Risk: Low Anesthetic Plan Anesthetic Plan: MAC: Disposition: Standard PACU
[2025-05-20 08:45] VITALS: BMI 23.9
[2025-05-20 09:13] VITALS: BP 155/72; PULSE 70; RESP 16; TEMP 36.6; O2SAT 100
[2025-05-20 09:20] LABS: Glucose, Whole Blood 103 mg/dL (60-115)
[2025-05-20] MEDS: Lactated Ringers 1,000 ML 50 ML IVCONT (09:24)
--- NOTE | 2025-05-20 09:58 | MHC.SHP ---
Pre-Procedural Eval Section A - 24 Hr Update-Section A only Date of Service: 05/20/25 Section B - Complete if H&P > 30 days Chief Complaint: screening,weight loss Relevant Family History (Specify if Yes): No Relevant Social History: None Present Medications: see Short Stay Collaborative assessment Medical History: Significant History ( Acute HFrEF (heart failure with reduced ejection fraction) Diabetes HLD (hyperlipidemia) HTN (hypertension)) History of Previous Operations: Relevant previous surgery/procedure and date(s) (S/P cardiac catheterization S/P cardiac cath H/O heart artery stent Hx of appendectomy) Allergies: Allergies Allergy/AdvReac Type Severity Reaction Status Date / Time No Known Allergies Allergy Verified 02/12/25 14:48 Review of Systems Sugical H&P ROS: Negative: Constitution, Cardiovascular, Respiratory, Neurological, Psychiatric, Hem-Onc, Allergic/Immunologic, Gastrointestinal, Genitourinary, Musculoskeletal, Integumentary, Endocrine and Eyes/Ears/Nose/Throat Exam Surgical H&P Exam: Normal: HEENT, Normal: Heart, Normal: Lungs, Normal: Extremities, Normal: Abdomen, Normal: Skin and Normal: Neurological Plan Diagnosis/Plan: Unchanged I have reviewed the history and physical and performed a pertinent physical examination on my patient. No changes have occurred unless specified. Time Spent With Patient Time: Total time managing care of this patient today ____ minutes.
--- NOTE | 2025-05-20 10:32 | P.OPN-COLO_ITS ---
Colonoscopy Operative Note Operative Note Date of Service: 05/20/25 Narrative: Operative Information Procedure Description: EGD, Colonoscopy Indication: dysphagia, screening Anesthesia: MAC FLEXIBLE TRANSORAL UPPER GASTROINTESTINAL ENDOSCOPY AND COLONOSCOPY PROCEDURE NOTE UPPER ENDOSCOPY Consent: Indications for the procedure and potential complications of bleeding, perforation, reaction to medications and missed diagnosis were discussed with the patient and informed consent was obtained. Instrument: Olympus GIF H 190 J mid size upper endoscope Monitoring: Vital signs and clinical assessment, continuous EKG monitoring, Pulse oximetry, Carbon Dioxide monitoring and blood pressure monitoring were done throughout the procedure. Procedure: The patient was placed in the left lateral decubitis position and pre-procedure medications were administered and a bite block was placed. The endoscope was inserted into the mouth and advanced under direct vision to the third part of duodenum. A careful inspection was made as the upper endoscope was withdrawn including a retroflexed examination of the proximal stomach; Findings and interventions are described below. Findings: Larynx:normal Esophagus: GE junction at 38 cm, diaphragm hiatus at 38 cm, normal mucosa- bx taken from LES and UES, to 20 mm with small tear seen at UES Stomach: Patchy erythema . Biopsies were obtained. Grade 2 flap valve on retroflexed examination of the cardia. Duodenum: Normal bulb and descending duodenum, bx taken Intervention: Biopsies as noted above, balloon dilation COLONOSCOPY Instrument: Olympus variable stiffness pediatric scope 190L Colonoscopy Monitoring: Vital signs and clinical assessment, continuous EKG monitoring, Pulse oximetry, Carbon Dioxide monitoring and blood pressure monitoring were done throughout the procedure. Colon withdrawal time was 10 minutes. Procedure: The patient was placed in the left lateral decubitis position and pre-procedure medications were administered. After a digital rectal examination of the ano-rectum, the video colonoscope was inserted into the rectum and advanced through the colon to the cecum/TI. The colonoscope was slowly withdrawn in a retrograde panoramic fashion and the colon mucosa was carefully examined including a retroflexed view of the rectum. Findings and interventions are described below. Procedure Difficulty:moderate-tortuous colon, pressure applied Findings: Terminal Ileum-normal Cecum: 4-5 mm sessile polyp lifted with eleview and then removed with cold forceps Ascending Colon: few diverticula seen Transverse Colon -normal Descending Colon:normal Sigmoid Colon: mild diverticula Rectum: Retroflexion with small to medium sized internal hemorrhoids, grade I Anorectum - normal Colon preparation: Charlotte Bowel Preparation Scale Right colon; 2 Transverse colon: 2 Left colon; 2 (0 = Unprepared colon segment with mucosa not seen due to solid stool that cannot be cleared. 1 = Portion of mucosa of the colon segment seen, but other areas of the colon segment not well seen due to staining, residual stool and/or opaque liquid. 2 = Minor amount of residual staining, small fragments of stool and/or opaque liquid, but mucosa of colon segment seen well. 3 = Entire mucosa of colon segment seen well with no residual staining, small fragments of stool or opaque liquid) Impression and Post Procedure Diagnosis: Endoscopy Findings: esophageal stricture gastritis Colonoscopy Findings: diverticulosis colon polyp x 1 internal hemorrhoids Plan: Await Pathology results Repeat Colonoscopy in 5 years if adenomatous polyp, 10 yrs if hyperplastic or earlier if clinically indicated High fiber diet leaflet avoid straining at stool, epsom salts and sitz bath, anusol supps or cream GERD precautions can restart meds tomorrow Above findings were reviewed with the patient and relevant handouts were provided if indicated.
[2025-05-20 11:08] VITALS: BP 144/71; PULSE 67; RESP 20; TEMP 36.6; O2SAT 100
[2025-05-20 11:28] VITALS: BP 152/76; PULSE 70; RESP 18; TEMP 36.1; O2SAT 96
== END 2025-05-20 12:25 | disposition home or self-care (01) ==
PROVIDERS: PCP Internal Medicine; Visit Provider Internal Medicine Gastroenterology
PROC: (CPT 45380; principal; 2025-05-20 10:20)
DX: Z12.11 Encounter for screening for malignant neoplasm of colon (principal); K63.5 Polyp of colon; K56.2 Volvulus; K57.30 Diverticulosis of large intestine without perforation or abscess without bleeding; K64.0 First degree hemorrhoids; K21.9 Gastro-esophageal reflux disease without esophagitis; R13.10 Dysphagia, unspecified; B96.81 Helicobacter pylori [H. pylori] as the cause of diseases classified elsewhere; K22.2 Esophageal obstruction; K29.60 Other gastritis without bleeding; R63.4 Abnormal weight loss; Z68.22 Body mass index [BMI] 22.0-22.9, adult; E11.22 Type 2 diabetes mellitus with diabetic chronic kidney disease; I13.0 Hypertensive heart and chronic kidney disease with heart failure and stage 1 through stage 4 chronic kidney disease, or unspecified chronic kidney disease; N18.9 Chronic kidney disease, unspecified; I50.21 Acute systolic (congestive) heart failure; E78.5 Hyperlipidemia, unspecified; Z79.899 Other long term (current) drug therapy
CPT/HCPCS: 45380; 45381; 43249; 43239; 82947; 88305; 88313; 88342; C1726; J2003; J2704; J3010

== ENCOUNTER → 2025-05-20 08:18 | Outpatient (BNV) | payer OTHER, SELFPAY | PROVIDERS: PCP Internal Medicine; Visit Provider Internal Medicine Gastroenterology | DX: R63.4 Abnormal weight loss (principal); K22.2 Esophageal obstruction; K29.70 Gastritis, unspecified, without bleeding; D12.0 Benign neoplasm of cecum; K57.90 Diverticulosis of intestine, part unspecified, without perforation or abscess without bleeding; K64.0 First degree hemorrhoids | CPT/HCPCS: 43239; 43249; 45381 ==

== ENCOUNTER 2025-06-02 09:39 | Outpatient (AMB) | payer OTHER, SELFPAY ==
--- NOTE | 2025-06-02 09:41 | MHC.OFFVIS ---
Vital Signs 06/02/25 10:01 Height 5 ft 3 in Weight 133 lb BMI 23.6 BP 114/68 Blood Pressure Location Rt brachial Position Sitting Pulse 68 Pulse Source Pulse Oximeter Pulse Oximetry (%) 97 Oxygen Delivery Method Room Air Intake Visit Reasons: s/p double Hernandez Intake Note: Est pt for mgmt of CIC + bloating. S/P procedure. CC; Pt denies any GI sx or concerns at this time. Confirms taking Rx as instructed and without complications. Financial Services Intern Required: Yes Financial Services Intern Services: Financial Services Intern Offered & Declined Accompanied by: Daughter Allergies No Known Allergies Allergy (Verified 02/12/25 14:48) HPI HPI s/p double Hernandez: Details: LAST VISIT: Dysphagia Postprandial epigastric pain Gastroesophageal reflux disease Abdominal bloating Constipation Screen for colon cancer Plan Cricopharyngeal sphincter indenting, possible reason for dysphagia. Upper endoscopy for possible dilation and closer evaluation of the esophagus. Patient will need to go for colonoscopy as well. Denies any melena, hematochezia. Patient denies any issues with anesthesia in the past. Cleared by Cardiology. Currently denies any cardiac or respiratory symptoms. Message sent to surgical schedulers to book patient as soon as we can. Availability for double procedure bulk for May 20. What to expect before during and after procedure discussed with patient. Stressed the importance of good bowel prep and clear liquid diet day before procedure. Patient will be seen after the procedure, sooner on as needed basis. Both patient and his daughter are agreeable to plan of care and verbalizes understanding of instructions. They were given the opportunity to ask questions and all questions answered. ? Thank you for allowing me to participate in his care Referrals Bowling Teacher Nutrition Referral R63.4 New bisacodyl (Dulcolax (bisacodyl)) take 4 tabs at noon the day before your colonoscopy 20 mg (4 x 5 mg) PO ONCE 4 tabs 0RF constipation 1 day Z12.11 polyethylene glycol 3350 (Miralax) As directed by gastroenterology department at [facility] 238 grams PO ONCE 238 grams 0RF Z12.11 UPPER ENDOSCOPY AND COLONOSCOPY Findings: Larynx:normal Esophagus: GE junction at 38 cm, diaphragm hiatus at 38 cm, normal mucosa- bx taken from LES and UES, to 20 mm with small tear seen at UES Stomach: Patchy erythema . Biopsies were obtained. Grade 2 flap valve on retroflexed examination of the cardia. Duodenum: Normal bulb and descending duodenum, bx taken Intervention: Biopsies as noted above, balloon dilation COLONOSCOPY Instrument: Olympus variable stiffness pediatric scope 190L Colonoscopy Monitoring: Vital signs and clinical assessment, continuous EKG monitoring, Pulse oximetry, Carbon Dioxide monitoring and blood pressure monitoring were done throughout the procedure. Colon withdrawal time was 10 minutes. Procedure: The patient was placed in the left lateral decubitis position and pre-procedure medications were administered. After a digital rectal examination of the ano-rectum, the video colonoscope was inserted into the rectum and advanced through the colon to the cecum/TI. The colonoscope was slowly withdrawn in a retrograde panoramic fashion and the colon mucosa was carefully examined including a retroflexed view of the rectum. Findings and interventions are described below. Procedure Difficulty:moderate-tortuous colon, pressure applied Findings: Terminal Ileum-normal Cecum: 4-5 mm sessile polyp lifted with eleview and then removed with cold forceps Ascending Colon: few diverticula seen Transverse Colon -normal Descending Colon:normal Sigmoid Colon: mild diverticula Rectum: Retroflexion with small to medium sized internal hemorrhoids, grade I Anorectum - normal Colon preparation: [place] Bowel Preparation Scale Right colon; 2 Transverse colon: 2 Left colon; 2 (0 = Unprepared colon segment with mucosa not seen due to solid stool that cannot be cleared. 1 = Portion of mucosa of the colon segment seen, but other areas of the colon segment not well seen due to staining, residual stool and/or opaque liquid. 2 = Minor amount of residual staining, small fragments of stool and/or opaque liquid, but mucosa of colon segment seen well. 3 = Entire mucosa of colon segment seen well with no residual staining, small fragments of stool or opaque liquid) Impression and Post Procedure Diagnosis: Endoscopy Findings: esophageal stricture gastritis Colonoscopy Findings: diverticulosis colon polyp x 1 internal hemorrhoids Plan: Await Pathology results Repeat Colonoscopy in 5 years if adenomatous polyp, 10 yrs if hyperplastic or earlier if clinically indicated High fiber diet leaflet avoid straining at stool, epsom salts and sitz bath, anusol supps or cream GERD precautions can restart meds tomorrow PATHOLOGY RESULTS Diagnosis A. Duodenum, biopsy: Duodenal mucosa with preserved villi and no specific change. B. Stomach, biopsy: Chronic Helicobacter gastritis with minimal to moderate activity; negative for intestinal metaplasia and dysplasia. C. Gastroesophageal junction, biopsy: Squamous mucosa with hyperplasia and increased intraepithelial eosinophils (up to 27 per high-power field) consistent with esophagitis, and columnar mucosa with mild chronic inflammation; negative for intestinal metaplasia and dysplasia. D. Esophagus, distal, biopsy: Squamous mucosa with hyperplasia and rare intraepithelial eosinophil (up to 1 per high-power field) compatible with esophagitis, and detached strip of columnar epithelium; negative for intestinal metaplasia and dysplasia. E. Esophagus, proximal, biopsy: Squamous mucosa with no specific change; no columnar mucosa present. F. Colon, cecal polyp: Colonic mucosa with minor hyperplastic changes; no adenomatous dysplasia seen. TODAY'S VISIT Patient is here today for follow-up and to discuss upper endoscopy and colonoscopy results. Patient reports to be feeling much better. No trouble swallowing anymore. Has been taking famotidine at bedtime and pantoprazole in the morning. Patient denies dyspepsia, dysphagia or odynophagia. Chronic H pylori found on upper endoscopy in the stomach. Eosinophilic esophagitis patient is taking pantoprazole and reports that his symptoms are better. Will start patient on treatment. Hyperplastic polyp found, colonoscopy in 10 years. Patient has seen dietitian who is helping him with meal planning. Patient reports that he is not moving his bowels better, however he does not feel like he empties them completely. Patient currently is taking senna 2 tablets every evening. Patient denies melena, hematochezia, unintentional weight loss or ribbon like stools. [facility] Medical History (Updated 06/02/25 @ 20:28 by PRABHU Contreras-CALEB) Eosinophilic esophagitis Helicobacter pylori (H. pylori) Kidney calculi Carotid artery disease Acute HFrEF (heart failure with reduced ejection fraction) Diabetes HLD (hyperlipidemia) HTN (hypertension) Surgical History History of cholecystectomy S/P cardiac catheterization S/P cardiac cath H/O heart artery stent Hx of appendectomy Social History Household Members: None Housing: Apartment Do you presently have visiting nurse or other home services: No Patient Tobacco Use Status: Never used Tobacco Review of Systems Const Denies weight gain and Denies weight loss ENT Reports no additional complaints, Denies dysphagia and Denies odynophagia Card Reports no additional complaints Resp Reports no additional complaints GI Denies abdominal pain, Denies belching, Denies melena, Denies bloating, Denies change in bowel habits, Reports constipation, Denies dysphagia, Denies excessive flatus, Denies dyspepsia, Denies heartburn, Denies diarrhea, Denies loose stools, Denies nausea, Denies odynophagia and Denies vomiting Reports no additional complaints Musc Reports no additional complaints Neuro Reports no additional complaints Psych Reports no additional complaints Endo Reports no additional complaints Physical Exam Vital Signs: Last Vital Signs Pulse 68 06/02/25 10:01 BP 114/68 06/02/25 10:01 Pulse Ox 97 06/02/25 10:01 Oxygen Delivery Method Room Air 06/02/25 10:01 BMI result Body Mass Index 23.6 Const General: healthy appearing, no acute distress and well developed Nutritional Appearance: well nourished Orientation/consciousness: patient oriented x3 Resp Effort & Inspection: normal respiratory effort, able to speak in complete sentences, no tracheal deviation and symmetric chest movement Auscultation: clear to auscultation bilaterally Cardio Rate: regular rate GI Inspection: No distended and No visible herniation (Periumbilical area tender) Palpation (GI): Soft to palpation, not firm, nontender and No hepatosplenomegaly present Auscultation: normal bowel sounds General: Yes no CVA tenderness Back/Spine/Pelvis Back: no CVA tenderness Skin General skin exam: elasticity normal, turgor normal and dry skin Neuro General: patient oriented x3 Psych Appearance: grossly normal Mental Status: mental status grossly normal Assessment & Plan Assessment & Plan (1) Helicobacter pylori (H. pylori): Code(s): A04.8 - Other specified bacterial intestinal infections Category: Medical (2) Eosinophilic esophagitis: Code(s): K20.0 - Eosinophilic esophagitis Category: Medical (3) Dysphagia: Code(s): R13.10 - Dysphagia, unspecified Qualifiers: Dysphagia type: pharyngoesophageal phase Qualified Code(s): R13.14 - Dysphagia, pharyngoesophageal phase (4) Postprandial epigastric pain: Code(s): R10.13 - Epigastric pain (5) Gastroesophageal reflux disease: Code(s): K21.9 - Gastro-esophageal reflux disease without esophagitis Qualifiers: Esophagitis presence: with esophagitis Esophagitis bleeding: without hemorrhage Qualified Code(s): K21.00 - Gastro-esophageal reflux disease with esophagitis, without bleeding (6) Abdominal bloating: Code(s): R14.0 - Abdominal distension (gaseous) (7) Constipation: Code(s): K59.00 - Constipation, unspecified Qualifiers: Constipation type: slow transit constipation Qualified Code(s): K59.01 - Slow transit constipation (8) Encounter for screening for malignant neoplasm of colon: Code(s): Z12.11 - Encounter for screening for malignant neoplasm of colon Plan Patient will continue pantoprazole. Will start treatment for H pylori. Avoid dietary triggers and late night snacking. Staying upright for minimum 3 hours after meals discussed with patient. Patient will start Motegrity. Increase fluid intake and activity to promote better bowel motility. Continue following up with dietitian. Follow-up in the office in 2 months, sooner on as needed basis. He is agreeable to this plan and verbalizes understanding of instructions. He was given the opportunity to ask questions and all questions answered. Thank you for allowing me to participate in his care Medications: New prucalopride (Motegrity) 2 mg PO DAILY 30 tabs 4RF K59.04 - Chronic idiopathic constipation doxycycline hyclate 100 mg PO BID 28 caps 0RF 14 days metronidazole 1,000 mg (2 x 500 mg) PO BID 56 tabs 0RF A04.8 - Other specified bacterial intestinal infections Discontinued sennosides (Natural Senna Laxative) Discontinued Reason: Doctor's Order 17.2 mg (2 x 8.6 mg) PO BEDTIME 60 tabs 3RF constipation K59.00 - Constipation, unspecified Coding Level of Care Code Est Pt Level 4 (80926) Complex EM visit Add On G2211 Diagnoses Helicobacter pylori (H. pylori) A04.8 Eosinophilic esophagitis K20.0 Pharyngoesophageal dysphagia R13.14 Dysphagia type: pharyngoesophageal phase Postprandial epigastric pain R10.13 Gastroesophageal reflux disease with esophagitis without hemorrhage K21.00 Esophagitis presence: with esophagitis Esophagitis bleeding: without hemorrhage Abdominal bloating R14.0 Slow transit constipation K59.01 Constipation type: slow transit constipation Encounter for screening for malignant neoplasm of colon Z12.11 Time Spent (min) 40 Comment 25 minutes spent with patient and additional 10 minutes spent reviewing his records
[2025-06-02 10:01] VITALS: BP 114/68; PULSE 68; O2SAT 97; BMI 23.6
--- OUTSIDE RECORDS SUMMARY | 2025-06-02 11:25 | XMS_ITS | Clinical Summary ---
Author Organization [employer] Address [address] [place] [address] 7[address] [place] [address] Care Team Providers Care Laundry Manager Name Role Phone Carolina Siddiqi MD Primary [...] on home monitor. 1 each 023 Active atorvastatin (Lipitor) 80 MG tablet Take [...] hyperglycemia, without long-term current use of insulin ([facility]) Use to test blood sugar 2 times daily 100 each 12 024 2024 Active Blood Glucose Monitoring Suppl (FreeStyle Cody Lite) w/Device kitIndications:Ty pe 2 diabetes mellitus with hyperglycemia, without long-term current use of insulin ([facility]) Use to test blood sugar 2 times daily 1 kit 024 Active sacubitril-valsar stoddard (Entresto) 97-103 MG tabletIndications :Primary hypertension,Aluminum Siding Applicator nilam systolic congestive heart failure ([facility]) Take 1 tablet by mouth 2 times daily. 60 tablet 12 024 2024 Active TRUEplus Lancets 33G miscIndications:T ype 2 diabetes mellitus with hyperglycemia, without long-term current use of insulin ([facility]) USE DIRECTED TO TEST BLOOD SUGAR EVERY DAY 100 each 11 024 Active glucose blood (FREESTYLE LITE) test stripIndications: Type 2 diabetes mellitus with hyperglycemia, without long-term current use of insulin ([facility]) USE DIRECTED TO TEST BLOOD SUGAR ONCE [...] hyperglycemia, without long-term current use of insulin ([facility]) USE DIRECTED TO TEST BLOOD SUGAR TWICE DAILY 100 each 3 025 Active fluticasone (Flonase) 50 MCG/ACT nasal sprayIndications: Rhinitis, unspecified type Administer 1-2 sprays into each nostril Once per day. Shake gently. Before first use, prime pump. After use, clean tip and replace cap. 16 g 025 2025 Active Lancets (OneTouch Delica Plus [id number]) miscIndications:T ype 2 diabetes mellitus with hyperglycemia, without long-term current use of insulin ([facility]) USE TO TEST BLOOD SUGAR TWICE DAILY [...] by mouth 2 times daily. 60 tablet 025 Active metoprolol succinate XL (Toprol-XL) 50 MG 24 hr tablet TAKE 1 TABLET BY MOUTH EVERY MORNING 90 tablet 3 025 Active aspirin 81 MG EC tablet Take 1 tablet (81 mg) by mouth Once per day. 30 tablet 3 025 Active ticagrelor (Brilinta) 90 MG tablet Take 1 tablet (90 mg) by mouth 2 times daily. 60 tablet 025 Active glucose blood (Accu-Chek Guide Test) test stripIndications: Type 2 diabetes mellitus with hyperglycemia, without long-term current use of insulin ([facility]) Use 1 strip to monitor blood glucose by subcutaneous route twice daily 100 each 5 025 2025 Active Blood Glucose Monitoring Suppl (Accu-Chek Guide) w/Device kitIndications:Ty pe 2 diabetes mellitus with hyperglycemia, without long-term current use of insulin ([facility]) Use to monitor blood glucose twice daily 1 kit 025 Active aspirin 81 MG EC tablet Take 1 tablet by mouth Once per day. 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 Also showed 60 % stenosis in mid RCA + Severe diffuse disease in the left PDA--> med management Assessment & Plan (02/26/2024 12:16 PM EDT): C.Cath on 12/21/23 at [facility]: Severe LAD disease + D1 [...] Action stage. PLAN: 1. Follow up with [facility]: Not recommended for follow-up 2. Patient goal is to improve health 3. Behavioral Recommendations a. Comply with medical recommendations b. Begin incorporating healthy changes in daily life c. May utilize [facility] and/or hotline, if symptoms worsen d. May reach out to [facility] for additional support Assessment & Plan [...] hyzaar 100/25mg and amlodipine 5mg, RTC with ny 2-3 weeks - Aerobic exercise to reduce [...] Encounters Date Type Department Care Team Description 05/29/2025 Refill [facility] [address] [place] [address] Bela Garcia, RN Type 2 diabetes mellitus with hyperglycemia, without long-term current use of insulin ([facility]) 05/27/2025 Telephone [facility] [address], [place] [phone] Carolina Siddiqi MD r/s from 06/02/25 provider out 05/26/2025 Refill [facility] [address] [place] [address] Carolina Siddiqi MD 05/26/2025 Refill [facility] [address] [place] [address] Carolina Siddiqi MD 05/20/2025 Orders Only GENERIC EXTERNAL DATA DEPARTMENT Provider, Generic External Data 04/30/2025 Orders Only [facility] External Provider, [facility] 04/25/2025 Refill [facility] [address] [place] [address] Carolina Siddiqi MD 03/26/2025 Refill [facility] [address] [place] [address] Yeimi Saenz MD from Last 3 Months Immunizations Immunization Administration [...] Care Team (Late st Contact Info) Description 06/23/2025 9:30 AM EDT Telemedicine [facility] [address] [place] [phone] Carolina Siddiqi MD [address] [place] [address] 07/08/2025 10:45 AM EDT Office Visit [facility] [address] [place] [address] [phone] Carolina Siddiqi MD [address] [place] [phone] Health Maintenance Due Date Last Done Comments CT Colonography 1960 Colonoscopy 1960 FIT 1960 Sigmoidoscopy 1960 Diabetes: Foot Exam 1969 Hepatitis C Screening 1977 DTaP/Tdap/Td Vaccines (2 - Td or Tdap) 10/02/2023 10/02/2013 Depression Monitoring 08/27/2024 02/26/2024, 024 FOBT 09/27/2024 09/27/2023 Eye Exam 01/16/2025 01/17/2024, 050 04/2024, 01/17/2024, Additional history exists COVID-19 Vaccine ( season) 2025 02/19/2021, 01/22/2021 Influenza Vaccine (#1) 2025 , 05/31/2016, 07/07/2014, [...] Procedure Name Priority Date/Time Associated Diagnosis Comments HEMATOXYLIN AND EOSIN STAIN Routine 05/20/2025 10:40 AM EDT GLUCOSE, WHOLE BLOOD Routine 05/20/2025 9:16 AM EDT FL UPPER GI W AIR W BARIUM SWALLOW Routine 04/30/2025 10:00 AM EDT LIPID PANEL, STANDARD Routine 02/11/2025 9:15 AM EDT Type 2 diabetes mellitus with hyperglycemia, without long-term current use of insulin ([facility]) ALBUMIN, RANDOM URINE W/CREATININE Routine 02/11/2025 9:13 AM EDT Type 2 diabetes mellitus with hyperglycemia, without long-term current use of insulin ([facility]) POCT GLYCATED HEMOGLOBIN, TOTAL Routine 12/10/2024 9:25 AM EDT Type 2 diabetes mellitus with hyperglycemia, without long-term current use of insulin ([facility]) LAB COLOGUARD COLON CANCER SCREEN Routine 09/27/2023 8:35 AM EST Colon cancer screening from Last 3 Months or Most Recently Relevant to Health Maintenance Results * Hematoxylin and Eosin Stain (05/20/2025 10:40 AM EDT) 05/20/2025 10:4 0 AM EDT 05/20/2025 11:56 AM EDT [facility] - 05/22/2025 12:27 PM EDT ----- ------- Name: Greg Ruano Age/Sex: 64/M : 1960 Unit#: [id number] Attend Dr: Titi Hernandez MD Re05/20/25 Status: [facility] Location: [facility] Disch: ----- ------- SPEC : [id number] RECD: 05/20/25 STATUS: PATRICIA PRINGLE NUM: [id number] ANUP: 05/20/25-[address] [facility] [address]: Titi Hernandez MD ENTERED: 05/20/25 SP TYPE: Surgical OTHR DR: Carolina Siddiqi MD ORDERED: HE Stain/12, Gross Micro L4/6, IHC, Special st. 2/2, H. pylori, AB/PAS/2 Diagnosis A. Duodenum, biopsy: Duodenal mucosa with preserved villi and no specific change. B. Stomach, biopsy: Chronic Helicobacter gastritis with minimal to moderate activity; negative for intestinal metaplasia and dysplasia. C. Gastroesophageal junction, biopsy: Squamous mucosa with hyperplasia and increased intraepithelial eosinophils (up to 27 per high-power field) consistent with esophagitis, and columnar mucosa with mild chronic inflammation; negative for intestinal metaplasia and dysplasia. D. Esophagus, distal, biopsy: Squamous mucosa with hyperplasia and rare intraepithelial eosinophil (up to 1 per high-power field) compatible with esophagitis, and detached strip of columnar epithelium; negative for intestinal metaplasia and dysplasia. E. Esophagus, proximal, biopsy: Squamous mucosa with no specific change; no columnar mucosa present. F. Colon, cecal polyp: Colonic mucosa with minor hyperplastic changes; no adenomatous dysplasia seen. Clinical History Pre-Op Dx: Screening, dysphagia Post-Op Dx: Gastritis, esophageal stricture, colon polyp Microscopic Description Microscopic sections reviewed. Immunostain for H. pylori on B is positive. AB/PAS stains on C and D are negative for intestinal metaplasia. Controls stain appropriately. Material Received A. Duodenal biopsies B. Stomach biopsies C. GE junction biopsies D. Distal esophagus biopsies E. Proximal esophagus biopsies F. Cecal polyp CONTINUED ON NEXT PAGE ----- ------- Name: Greg Ruano Age/Sex: 64/M : 1960 [facility]#: [id number] Unit#: [id number] Attend Dr: Titi Hernandez MD Re05/20/25 Status: [facility] Location: [facility] Disch: ----- ------- SPEC : [id number] RECD: 05/20/25-1155 STATUS: PATRICIA PRINGLE NUM: [id number] ANUP: 05/20/25-[address] [facility] [address]: Titi Hernandez MD ENTERED: 05/20/25-1159 SP TYPE: Surgical OTHR DR: Carolina Siddiqi MD ORDERED: HE Stain/12, Gross Micro L4/6, IHC, Special st. 2/2, H. pylori, AB/PAS/2 Gross Description Received in six parts. Part A: Received in formalin labeled duodenal bx are two stoddard-pink irregular tissue fragments each measuring 0.2 cm, submitted in toto in a cassette labeled A. Part B: Received in formalin labeled stomach bx are seven minute to 0.3 cm stoddard-pink irregular and rectangular tissue fragments, submitted in toto in a cassette labeled B. Part C: Received in formalin labeled GE junction are two sanabria-white irregular tissue fragments each measuring 0.35 cm, submitted in toto in a cassette labeled C. Part D: Received in formalin labeled distal esophagus bx are three sanabria-white irregular and rectangular tissue fragments ranging from 0.15-0.3 cm, submitted in toto in a cassette labeled D. Part E: Received in formalin labeled proximal esophagus bx are four sanabria-white irregular and rectangular tissue fragments ranging from minute to 0.3 cm, submitted in toto in a cassette labeled E. Part F: Received in formalin labeled cecal polyp are four stoddard-pink irregular tissue fragments ranging from minute to 0.2 cm, submitted in toto in a cassette labeled F. CEDS Special studies ordered and performed: Immunostain for H. pylori on B1; AB/PAS stains on C1 and D1. IHC S/NG Disclaimer NOTE: Unless otherwise stated, all tissue is formalin-fixed and paraffin-embedded. Some or all of the immunohistochemical tests reported herein may have been developed and their performance characteristics determined by [facility]. They have not been cleared or approved by the U.S. Food and Drug Administration (FDA). However, the FDA has determined that such clearance or approval is not necessary. This laboratory is certified under the Clinical Laboratory Improvement Amendments of 1988 (CLIA) as qualified to perform high complexity clinical laboratory testing. CONTINUED ON NEXT PAGE ----- ------- Name: Greg Ruano Age/Sex: 64/M : 1960 Unit#: [id number] Attend Dr: Titi Hernandez MD Re05/20/25 Status: [facility] Location: [facility] Disch: ----- ------- SPEC : [id number] RECD: 05/20/25 STATUS: PATRICIA PRINGLE NUM: [id number] ANUP: 05/20/25-[address] [facility] [address]: Titi Hernandez MD ENTERED: 05/20/25 SP TYPE: Surgical OTHR DR: Carolina Siddiqi MD ORDERED: HE Stain/12, Gross Micro L4/6, IHC, Special st. 2/2, H. pylori, AB/PAS/2 Copies To: Carolina Siddiqi MD [address] [address] Titi Hernandez MD [facility] [address] [place] [address] [phone] ----- ------- Signed (signature on file) Jennifer Vergara 05/22/25 1227 ----- ------- END OF REPORT Generic External Data Provider LAB BLOOD ORDERAB LES Final Result Performing Organization Address [facility] Co de Phone Number [facility] [address] [place] [phone] * Glucose, Whole Blood (05/20/2025 9:16 AM EDT) Glucose, Whole Blood 103 60 - 115 mg/dL [facility] Comment:METER #: [id number] 05/20/2025 9:16 AM EDT 05/20/2025 9:19 AM EDT Generic External Data Provider LAB BLOOD ORDERAB LES Final Result Performing Organization Address [facility] de Phone Number [facility] [address] [place] [phone] * FL Upper GI w/air w/Barium Swallow (04/30/2025 10:00 AM EDT) Anatomical Region Laterality Modality Body Radiographic Keri ging 04/30/2025 10:0 0 AM EDT Narrative 04/30/2025 1:41 PM EDT [address] [address] Fluoroscopy Report Signed Patient: Greg Land MR#: [id number] : 1960 Acct:[id number] Age/Sex: 64 / M ADM Date: 04/30/25 Loc: [facility]AY Attending Dr: Glenda PELLETIER-CALEB Ordering Physician: Glenda Rosa Date of Service: 04/30/25 Procedure(s): FL upper GI w air w Ba Swallow Accession Number(s): [id number] cc: Carolina Siddiqi MD; Glenda Rosa [facility] EXAMINATION: XR UPPER GI SERIES WITH SMALL [...] 04/30/25 1338 DD/ 1000 TD/TT: 04/30/25 1024 Human Resources Manager: AZUCENA Procedure Note Donotuseinterpreter, Image - 04/30/[address] [address] Fluoroscopy Report Signed Patient: Rosita Land#: [id number] : 9Acct:[id number] Age/Sex: 64 / MADM Date: 04/30/25 Loc: HO.XRAY Attending Dr: Glenda Rosa [facility] Ordering Physician: Glenda Rosa [facility] Date of Service: 04/30/25 Procedure(s): FL upper GI w air w Ba Swallow Accession Number(s): [id number] cc: Carolina Siddiqi MD; Glenda Rosa [facility] EXAMINATION: XR UPPER GI SERIES WITH SMALL [...] 04/30/25 1338 DD/ 1000 TD/TT: 04/30/25 1024 Human Resources Manager: AZUCENA us [facility] External Provider IMG FLU OROSCOPY PROCEDURES Final Result * (ABNORMAL) Lipid Panel, Standard (02/11/2025 9:15 AM EDT) Triglycerides 63 <150 mg/dL [facility] Comment:Desirable Triglyceri de: less than 150 mg/dLBorderline High Triglyceride 150-199 mg/dLHigh Triglyceride: 200-499 mg/dLVery High Triglyceride: greater than or equal to 5OO mg/dL Cholesterol 95 <200 mg/dL [facility] Comment:Desirable Cholestero l: less than 200 mg/dLBorderline High Cholesterol: 200-239 mg/dLHigh Cholesterol: greater than 239 mg/dL LDL Cholesterol Calculated 44 <100 mg/dL [facility] Comment:Desirable LDL: less than 100 mg/dLNear Optimal/Above Optimal LDL: 110- 129 mg/dLBorderline High LDL: 130-159 mg/dLHigh LDL: 160-189 mg/dLVery High LDL: greater than or equal to 190 mg/dL HDL Cholesterol 39(L) >40 mg/dL [facility] Comment:Desirable HDL: great er than 40 mg/dL Note: This HDL assay may give artificially low results in patients with liver disease. Blood Venous blood specimen / Unknown 02/11/2025 9:15 AM EDT 02/11/2025 9:15 AM EDT us Carolina Mahajan MD LAB BLOOD ORDERABLES Final Result [facility] [address] [place] [phone] * (ABNORMAL) Albumin, Random Urine W/Creatinine (02/11/2025 9:13 AM EDT) Creatinine, Urine 72.34 mg/dL [facility] Microalbumin Urine 40.0 mg/L [facility] Microalbum Creatinine Ratio Ur 55.2(H) <30 ug/mg cr [facility] Comment:Albumin/Creatinine R atio Reference Ranges: Normal: < 30 ug/mg creatinine Microalbuminuria: 30 - 300 ug/mg creatinineClinical Albuminuria: > 300 ug/mg creatinine Urine (Urine, Random) 02/11/2025 9:13 AM EDT 02/11/2025 10:38 AM EDT Carolina Mahajan MD LAB URINE ORDERABLES Final Result [facility] [address] [place] [phone] * (ABNORMAL) POCT HGB A1C (12/10/2024 9:25 AM EDT) Hemoglobin A1C 6.2(A) 4.0 - 6.0 % QC Media Lot # [id number] Lot# Expiration Date Blood 12/10/2024 9:25 AM EDT Carolina Mahajan MD POINT OF CARE TEST EN TER/EDIT ORDERABLES Final Result * Cologuard?? colon cancer screening (09/27/2023 8:35 AM EST) Cologuard Result Negative Negative 10/06/19 24 5:26 PM EST [facility] (CLIA #:[id number]) Comment: NEGATIVE TEST RESULT. A negative Cologuard [...] (Anamaria Morgan al, N Engl J Med 2014;370(14):1767-8996) The normal value (reference range) for this assay is negative. COLOGUARD RE-SCREENING RECOMMENDATION: Periodic colorectal cancer screening is an important part of preventive healthcare for asymptomatic individuals at average risk for colorectal cancer. Following a negative Cologuard result, the [place] [employer] Society and U.S. Multi-Society Task Force screening guidelines recommend a Cologuard re-screening interval of 3 years. References: [place] [employer] Guideline for Colorectal Cancer Screening: https://www.cancer.org/cancer/fetim-wrrgjs-skpzmp/tekpaofdk-oicaadwgu-aanebfy/ac s-rec ommendations.html.; Kvng DK, Rose CR, Alaina LangK, Colorectal Cancer Screening: Recommendations for Physicians and Patients from the U.S. Multi-Society Task Force on Colorectal Cancer Screening , Am J Gastroenterology 2017; 112:2262-2043. TEST DESCRIPTION: Composite algorithmic analysis of stool [...] (Anamaria Morgan al, N Engl J Med 2014;370(14):1003-0963.) Cologuard may produce a false negative or false positive result (no colorectal cancer or precancerous polyp present at colonoscopy follow up). A negative Cologuard test result does not guarantee the absence of CRC or advanced adenoma (pre-cancer). The current Cologuard screening interval is every 3 years. ([place] [employer] Society and U.S. Multi-Society Task Force). Cologuard performance data in a 10,000 patient pivotal study using colonoscopy as the reference method can be accessed at the following location: www.WebThriftStore.Boomsense/results. Additional description of the Cologuard test process, warnings and precautions can be found at www.cologMode De Fairerd.com. Stool specimen (specimen) 09/27/2023 8:35 AM EST 09/28/2023 3:50 PM EST us Carolina Mahajan MD LAB MOLECULAR DIAGNOS TICS ORDERABLES Final Result [facility] (CLIA #:[id number]) [place] [address], from Last 3 Months or Most Recently Relevant to Health Maintenance Insurance [id number] DUAL COMPLETE Care Teams Laundry Manager Relationship Specialty Start Date End Date Carolina Siddiqi MD [address] [place] [address] [phone] PCP - General Internal Medicine 07/11/23 Jolie Thompson Community Health Worker Case Management 02/14/24
--- OUTSIDE RECORDS SUMMARY | 2025-06-02 11:25 | XMS_ITS | Encounter Summary ---
Author Organization [employer] Address [address] [facility] [address] [place] [address] Care Team Providers Care Force Dispatcher Name Role Phone Carolina Siddiqi MD Primary Care Provide r Reason for Visit * Reason Comments Med Refill Encounter Details Date Type Department Care Team ([facility] st Contact Info) Description 05/26/2025 Refill [facility] [address] [place] [address] Carolina Siddiqi MD [address] [place] [address] Social History Tobacco Use Types Packs/Day Years [...] Info) Description 06/23/2025 9:30 AM EDT Telemedicine [facility] [address] [place] [phone] Carolina Siddiqi MD [address] [place] [phone] 07/08/2025 10:45 AM EDT Office Visit [facility] [address] [place] [address] [phone] Carolina Siddiqi MD [address] [place] [phone] documented as of this encounter Goals Goal [...] documented as of this encounter Care Teams Force Dispatcher Relationship Specialty Start Date End Date Carolina Siddiqi MD [address] [place] [address] PCP - General Internal Medicine 07/11/23 Jolie Thompson Community Health Worker Case Management 02/14/24 documented as of this encounter
--- OUTSIDE RECORDS SUMMARY | 2025-06-02 11:25 | XMS_ITS | Encounter Summary ---
Author Organization [employer] Address [address] [facility] [address] [place] [address] Care Team Providers Care Music Producer Name Role Phone Carolina Siddiqi MD Primary Care Provide r Encounter Details Date Type Department Care Team (Late st Contact Info) Description 05/29/2025 Refill [facility] [address] [place] [address] Bela Garcia RN [address] [place] [address] Type 2 diabetes mellitus with hyperglycemia, without long-term current use of insulin ([facility]) Social History Tobacco Use Types [...] AM EDT documented as of this encounter Miscellaneous Notes * Telephone Encounter - Bela Garcia RN - 05/29/2025 12:30 PM EDT Received fax from pharmacy that pt.'s test strips are not covered. They cover accu-chek guide. Rxs pended documented in this encounter Plan of Treatment Upcoming Encounters Date Type Department Care Team (Late st Contact Info) Description 06/23/2025 9:30 AM EDT Telemedicine [facility] [address] [place] [phone] Carolina Siddiqi MD [address] [place] [phone] 07/08/2025 10:45 AM EDT Office Visit [facility] [address] [place] [address] [phone] Carolina Siddiqi MD [address] [place] [phone] documented as of this encounter Goals Goal [...] hyperglycemia, without long-term current use of insulin ([facility]) documented in this encounter Additional Health Concerns Assessment Noted Time PHQ-9 Depression Total Score: 10 024 10:07 AM EDT documented as of this encounter Care Teams Music Producer Relationship Specialty Start Date End Date Carolina Siddiqi MD [address] [place] [phone] PCP - General Internal Medicine 07/11/23 Jolie Thompson Community Health Worker Case Management 02/14/24 documented as of this encounter
--- OUTSIDE RECORDS SUMMARY | 2025-06-02 11:25 | XMS_ITS | Clinical Summary ---
Author Organization [facility] Address [address] [place] [address] Phone Care Team Providers Care Senior Research Project Manager Name Role Phone Pcp, Unknown Primary Care [...] DEPRESSION SCREENING 1971 HEPATITIS C SCREENING 1977 SCREENING FOR DIABETES 1994 COLOGUARD 2004 [...] [place] Care Teams Senior Research Project Manager Relationship Specialty Start Date End Date Pcp, Unknown PCP - General 01/26/23 Additional Source Comments The information contained in this document represents components of the legal health record. It is not the complete legal health record.[facility]
--- OUTSIDE RECORDS SUMMARY | 2025-06-02 11:25 | XMS_ITS | Encounter Summary ---
Author Organization [employer] Address [address] [facility] 7t [place] [address] Care Team Providers Care Executive Director Contract Shop Name Role Phone Carolina Siddiqi MD Primary Care Provide r Encounter Details Date Type Department Care Team ([facility] st Contact Info) Description 07/19/2024 Orders Only [facility] MEDICINE [address] [place] [address] Carolina Siddiqi MD [address] [place] [address] Social History Tobacco Use Types Packs/Day Years [...] Info) Description 06/23/2025 9:30 AM EDT Telemedicine [facility] MEDICINE [address] [place] [address] [phone] Carolina Siddiqi MD [address] [place] [address] 07/08/2025 10:45 AM EDT Office Visit [facility] MEDICINE [address] [place] [address] [phone] Carolina Siddiqi MD [address] [place] [address] documented as of this encounter Goals Goal [...] documented as of this encounter Care Teams Executive Director Contract Shop Relationship Specialty Start Date End Date Carolina Siddiqi MD [address] [place] [address] PCP - General Internal Medicine 07/11/23 Jolie Thompson Community Health Worker Case Management 02/14/24 documented as of this encounter
--- OUTSIDE RECORDS SUMMARY | 2025-06-02 11:25 | XMS_ITS | Encounter Summary ---
Author Organization [employer] Address 75 [facility] 7t [place] [address] Care Team Providers Care Oral Surgeon Name Role Phone Carolina Siddiqi MD Primary Care Provide r Encounter Details Date Type Department Care Team ([facility] st Contact Info) Description 02/23/2024 Orders Only [facility] MEDICINE 230 [place] [address] Yeimi Saenz MD 230 [place] [address] Social History Tobacco Use Types Packs/Day Years [...] Description 06/23/2025 9:30 AM EDT Telemedicine [facility] MED[facility]INE [address] [place] [phone] Carolina Siddiqi MD [address] [place] [address] 14[address] 07/08/2025 10:45 AM EDT Office Visit [facility] [address] [place] [phone] Carolina Siddiqi MD [address] [place] [address] documented as of this encounter Visit Diagnoses Not on filedocumented in this encounter Additional Health Concerns Assessment Noted Time PHQ-9 Depression Total Score: 23 023 10:38 AM EDT documented as of this encounter Care Teams Oral Surgeon Relationship Specialty Start Date End Date Carolina Siddiqi MD [address] [place] [phone] PCP - General Internal Medicine 07/11/23 Jolie Thompson Community Health Worker Case Management 02/14/24 documented as of this encounter
== END 2025-06-02 10:37 | disposition home or self-care (01) ==
PROVIDERS: PCP Internal Medicine; Visit Provider Nurse Practitioner Family
DX: A04.8 Other specified bacterial intestinal infections (principal); K20.0 Eosinophilic esophagitis; R13.14 Dysphagia, pharyngoesophageal phase; R10.13 Epigastric pain; K21.00 Gastro-esophageal reflux disease with esophagitis, without bleeding; R14.0 Abdominal distension (gaseous); K59.01 Slow transit constipation; Z12.11 Encounter for screening for malignant neoplasm of colon
CPT/HCPCS: 99214; G2211

== ENCOUNTER → 2025-06-02 09:39 | Outpatient (BNVA) | payer OTHER, SELFPAY | PROVIDERS: PCP Internal Medicine; Visit Provider Nurse Practitioner Family | DX: Z12.11 Encounter for screening for malignant neoplasm of colon (principal); K59.01 Slow transit constipation; K21.00 Gastro-esophageal reflux disease with esophagitis, without bleeding; A04.8 Other specified bacterial intestinal infections; K20.0 Eosinophilic esophagitis; R13.14 Dysphagia, pharyngoesophageal phase; R10.13 Epigastric pain; R14.0 Abdominal distension (gaseous) | CPT/HCPCS: 99212 ==

== ENCOUNTER 2025-06-20 09:35 | Outpatient (REF) | payer OTHER, SELFPAY ==
--- OUTSIDE RECORDS SUMMARY | 2025-06-20 10:15 | XMS_ITS | Encounter Summary ---
Author Organization [employer] Address 75 [facility] 7t [place] [address] Care Team Providers Care Cardiology Rn Name Role Phone Carolina Siddiqi MD Primary Care Provide r Encounter Details Date Type Department Care Team ([facility] st Contact Info) Description 02/23/2024 Orders Only [facility] 230 [place] [address] Yeimi Saenz MD 230 [place] [address] Social History Tobacco Use Types Packs/Day Years [...] 9:37 AM EDT Sexual Orientation Straight 03/22/2023 9 :37 AM EDT documented as of this encounter [...] Info) Description 06/23/2025 9:30 AM EDT Telemedicine [facility] [address] [place] [phone] Carolina Siddiqi MD [address] [place] [address] 07/08/2025 10:45 AM EDT Office Visit [facility] [address] [place] [phone] Carolina Siddiqi MD [address] [place] [address] [phone] documented as of this encounter Visit Diagnoses Not on filedocumented in this encounter Additional Health Concerns Assessment Noted Time PHQ-9 Depression Total Score: 23 023 10:38 AM EDT documented as of this encounter Care Teams Cardiology Rn Relationship Specialty Start Date End Date Carolina Siddiqi MD [address] [place] [phone] PCP - General Internal Medicine 07/11/23 Jolie Thompson Community Health Worker Case Management 02/14/24 documented as of this encounter
--- OUTSIDE RECORDS SUMMARY | 2025-06-20 10:15 | XMS_ITS | Clinical Summary ---
Author Organization [facility] Address [address] [place] [address] Phone Care Team Providers Care Front End Ui Developer Name Role Phone Pcp, Unknown Primary Care [...] [facility] Care Teams Front End Ui Developer Relationship Specialty Start Date End Date Pcp, Unknown PCP - General 01/26/23 Additional Source Comments The information contained in this document represents components of the legal health record. It is not the complete legal health record.[facility]
--- OUTSIDE RECORDS SUMMARY | 2025-06-20 10:15 | XMS_ITS | Encounter Summary ---
Author Organization [employer] Address 75 [facility] 7t [place] [address] Care Team Providers Care Medical Specialist Name Role Phone Carolina Siddiqi MD Primary Care Provide r Encounter Details Date Type Department Care Team ([facility] st Contact Info) Description 07/19/2024 Orders Only [facility] [address] [place] [address] Carolian Siddiqi MD 230 [place] [address] Social History Tobacco Use Types Packs/Day Years [...] Info) Description 06/23/2025 9:30 AM EDT Telemedicine [facility]INE [address] [place] [address] [phone] Carolina Siddiqi MD [address] [place] [address] 07/08/2025 10:45 AM EDT Office Visit [facility] [address] [place] [address] [phone] Carolina Siddiqi MD [address] [place] [address] documented as of this encounter Goals Goal [...] as of this encounter Care Teams Medical Specialist Relationship Specialty Start Date End Date Carolina Siddiqi MD 230 [place] [address] PCP - General Internal Medicine 07/11/23 Jolie Thompson Community Health Worker Case Management 02/14/24 documented as of this encounter
--- OUTSIDE RECORDS SUMMARY | 2025-06-20 10:15 | XMS_ITS | Encounter Summary ---
Author Organization [employer] Address 75 [facility] 7t [place] [address] Care Team Providers Care Tire Finisher Name Role Phone Carolina Siddiqi MD Primary Care Provide r Reason for Visit * Reason Comments Med Refill Encounter Details Date Type Department Care Team ([facility] st Contact Info) Description 05/26/2025 Refill [facility] MED & PEDS [address] [place] [address] Carolina Siddiqi MD 230 [place] [address] Social History Tobacco Use Types Packs/Day Years [...] Info) Description 06/23/2025 9:30 AM EDT Telemedicine [facility] MEDICINE [address] [place] [address] Carolina Siddiqi MD [address] [place] [phone] 07/08/2025 10:45 AM EDT Office Visit [facility] MEDICINE [address] [place] [address] [phone] Carolina Siddiqi MD [address] [place] [address] [phone] documented as of this encounter Goals Goal [...] documented as of this encounter Care Teams Tire Finisher Relationship Specialty Start Date End Date Carolina Siddiqi MD 230 [place] [address] PCP - General Internal Medicine 07/11/23 Jolie Thompson Community Health Worker Case Management 02/14/24 documented as of this encounter
--- OUTSIDE RECORDS SUMMARY | 2025-06-20 10:15 | XMS_ITS | Encounter Summary ---
Author Organization [employer] Address 75 [facility] 7t [place] [address] Care Team Providers Care Munitions Handler Supervisor Name Role Phone Carolina Siddiqi MD Primary Care Provide r Reason for Visit * Reason Comments Med Refill Encounter Details Date Type Department Care Team ([facility] st Contact Info) Description 06/18/2025 Refill [facility] MEDICINE 230 [place] [address] Carolina Siddiqi MD 230 [place] [address] Primary hypertension; Chronic systolic congestive heart failure (HCC) Social History Tobacco Use Types Packs/Day Years [...] Info) Description 06/23/2025 9:30 AM EDT Telemedicine [facility] MEDICINE [address] [place] [address] Carolina Siddiqi MD [address] [place] [address] 07/08/2025 10:45 AM EDT Office Visit [facility]INE [address] [place] [address] [phone] Carolina Siddiqi MD [address] [place] [address] 27[address] documented as of this encounter Goals Goal Patient Goal Type Associated Problems Recent Progress Patient-Stated? Author Blood Pressure < 140/90 Blood Pressure 135/72(2024 9:20 AM EDT) No Ivana Puente PharmD Take your medication every day Lifestyle No Ivana Puente PharmD Hemoglobin A1c < 7 Result Component 6.2( 9:25 AM EDT) No Ivana Puente PharmD documented as of this encounter Visit Diagnoses Diagnosis Primary hypertension Unspecified essential hypertension Chronic systolic congestive heart failure (HCC) documented in this encounter Additional Health Concerns Assessment Noted Time PHQ-9 Depression Total Score: 10 024 10:07 AM EDT documented as of this encounter Care Teams Munitions Handler Supervisor Relationship Specialty Start Date End Date Carolina Siddiqi MD [address] [place] [address] PCP - General Internal Medicine 07/11/23 Jolie Thompson Community Health Worker Case Management 02/14/24 documented as of this encounter
--- OUTSIDE RECORDS SUMMARY | 2025-06-20 10:15 | XMS_ITS | Clinical Summary ---
Author Organization [employer] Address [address] [place] [address] 7t [place] [address] Care Team Providers Care Veterinary Manager Name Role Phone Carolina Siddiqi MD [...] FOR UP TO 7 DAYS 20 tablet 024 Active Blood Glucose Monitoring Suppl (FreeStyle Galt Lite) w/Device kitIndications:Ty pe 2 diabetes mellitus with hyperglycemia, without long-term current use of insulin (HCC) Use to test blood sugar 2 times daily 1 kit 024 Active TRUEplus Lancets 33G miscIndications:T ype 2 diabetes mellitus with hyperglycemia, without long-term current use of insulin (HCC) USE DIRECTED TO TEST BLOOD SUGAR EVERY DAY 100 each 11 024 Active glucose blood (FREESTYLE LITE) test stripIndications: Type 2 diabetes mellitus with hyperglycemia, without long-term current use of insulin (HCC) USE DIRECTED TO TEST BLOOD SUGAR ONCE [...] hyperglycemia, without long-term current use of insulin (HCC) USE DIRECTED TO TEST BLOOD SUGAR TWICE DAILY 100 each 3 025 Active fluticasone (Flonase) 50 MCG/ACT nasal sprayIndications: Rhinitis, unspecified type Administer 1-2 sprays into each nostril Once per day. Shake gently. Before first use, prime pump. After use, clean tip and replace cap. 16 g 025 2025 Active Lancets (OneTouch Delica Plus [id number]) miscIndications:T ype 2 diabetes mellitus with hyperglycemia, without long-term current use of insulin (HCC) USE TO TEST BLOOD SUGAR TWICE DAILY DIRECTED 100 each 5 025 Active ciclopirox (Penlac) 8 % solutionIndicatio ns:Onycholysis Apply topically at bedtime. 6 mL 1 025 Active Trulicity 0.75 MG/0.5ML solution auto-injector Inject 0.75 mg as directed 1 (one) time per week. 2 mL 12/11/2 025 Active ticagrelor (Brilinta) 90 MG tablet [...] hyperglycemia, without long-term current use of insulin ([facility]) Use 1 strip to monitor blood glucose by subcutaneous route twice daily 100 each 5 025 2025 Active Blood Glucose Monitoring Suppl (Accu-Chek Guide) w/Device kitIndications:Ty pe 2 diabetes mellitus with hyperglycemia, without long-term current use of insulin ([facility]) Use to monitor blood glucose twice daily 1 kit 025 Active Entresto 97-103 MG tabletIndications :Primary hypertension,Pigs Feet Finisher nilam systolic congestive heart failure (HCC) TAKE 1 TABLET BY MOUTH TWICE DAILY IN THE MORNING AND IN THE EVENING 60 tablet 11 Active aspirin 81 MG EC tablet Take 1 tablet by mouth Once per day. 024 2024 Discontinued(R eorder (will not trigger notification to Pharmacy)) FREESTYLE LITE test stripIndications: Type 2 diabetes mellitus with hyperglycemia, without long-term current use of insulin ([facility]) Use to test blood sugar 2 times daily 100 each 12 024 2024 sacubitril-valsar stoddard (Entresto) 97-103 MG tabletIndications :Primary hypertension,Pigs Feet Finisher nilam systolic congestive heart failure (HCC) Take 1 tablet by mouth 2 times daily. 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 Also showed 60 % stenosis in mid RCA + Severe diffuse disease in the left PDA--> med management Assessment & Plan (02/26/2024 12:16 PM EDT): C.Cath on 12/21/23 at [facility]: Severe LAD disease + D1 [...] rehab Acute systolic congestive heart failure 01/26/20 24 Assessment & Plan (01/26/2024 3:11 PM EDT): [...] in the context of medical issues, early mcc, adjusting to living alone and language barrier. [...] Action stage. PLAN: [facility]. [facility] [...] Encounters Date Type Department Care Team Description 06/18/2025 Refill [facility] MED[facility]INE [address] [place], [place] [phone] Carolina Siddiqi MD Primary hypertension; Chronic systolic congestive heart failure (HCC) 05/29/2025 Refill [facility] MEDICINE [address] [place], [place] [phone] Bela Garcia RN Type 2 diabetes mellitus with hyperglycemia, without long-term current use of insulin ([facility]/HCC) 05/27/2025 Telephone [facility] MEDICINE [address] [place], [place] [phone] Carolina Siddiqi MD r/s from 06/02/25 provider out 05/26/2025 Refill [facility] MEDICINE [address] [place] [address] Carolina Siddiqi MD 05/26/2025 Refill [facility] MED & PEDS [address] [place] [address] Carolina Siddiqi MD 05/20/2025 Orders Only GENERIC EXTERNAL DATA DEPARTMENT Provider, Generic External Data 04/30/2025 Orders Only [facility] External Provider, [facility] 04/25/2025 Refill [facility] [address] [place] [address] Carolina Siddiqi MD 03/26/2025 Refill [facility] MEDICINE [address] [place] [address] Yeimi Saenz MD from Last 3 Months [...] EDT Telemedicine [facility] MEDICINE [address] [place] [address] Carolina Siddiqi MD 230 [place] [address] 07/08/2025 10:45 AM EDT Office Visit [facility] MEDICINE [address] [place] [address] Carolina Siddiqi MD 230 [place] [address] Health Maintenance Due Date Last Done Comments CT Colonography 1960 Colonoscopy 1960 FIT 1960 Sigmoidoscopy 1959 Diabetes: Foot Exam 1969 Hepatitis C Screening 1977 DTaP/Tdap/Td Vaccines (2 - Td or Tdap) 10/02/2023 10/02/2013 Depression Monitoring 08/27/2024 02/26/2024, 024 FOBT 09/27/2024 09/27/2023 Eye Exam 01/16/2025 01/17/2024, 04/2024, 01/17/2024, Additional history exists COVID-19 Vaccine [...] long-term current use of insulin (CMS/HCC) LAB COLSAMRD COLON CANCER SCREEN Routine 09/27/2023 8:35 AM EST Colon cancer screening from Last 3 Months or Most Recently Relevant to Health Maintenance Results * Hematoxylin and Eosin Stain (05/20/2025 10:40 AM EDT) 05/20/2025 10:4 0 AM EDT 05/20/2025 11:56 AM EDT [facility] LABS - 05/22/2025 12:27 PM EDT ----- ------- Name: Greg Ruano Age/Sex: 64/M : 1960 Unit#: [id number] Attend Dr: Titi Hernandez MD Re05/20/25 Status: [facility] Location: [facility] Disch: ----- ------- SPEC : [id number] RECD: 05/20/25 STATUS: PATRICIA PRINGLE NUM: [id number] ANUP: 05/20/[address] [facility] [address]: Titi Hernandez MD ENTERED: 05/20/25 [...] Greg Ruano Age/Sex: 64/M : 1960 Unit#: [id number] Attend Dr: Titi Hernandez MD Re05/20/25 Status: [facility] Location: [facility] Disch: ----- ------- SPEC : [id number] RECD: 05/20/25 STATUS: PATRICIA PRINGLE NUM: [id number] ANUP: 05/20/25-[address] [facility] [address]: Titi Hernandez MD ENTERED: 05/20/25 [...] developed and their performance characteristics determined by [facility]. They have not been cleared or [...] Greg Ruano Age/Sex: 64/M : 1960 Unit#: [id number] Attend Dr: Titi Hernandez MD Re05/20/25 Status: [facility] Location: [facility] Disch: ----- ------- SPEC : [id number] RECD: 05/20/25-1155 STATUS: PATRICIA ESCALERAVega NUM: [id number] ANUP: 05/20/25-[address] [facility] [address]: Titi Hernandez MD ENTERED: 05/20/25 SP TYPE: Surgical OTHR DR: Carolina Siddiqi MD ORDERED: HE Stain/12, Gross Micro L4/6, IHC, Special st. 2/2, H. pylori, AB/PAS/2 Copies To: Carolina Siddiqi MD [address] [address] Titi Hernandez MD [facility] [address] [place] [phone] ----- ------- Signed (signature on file) Jennifer Jai 05/22/25 1227 ----- ------- END OF REPORT Generic External Data Provider LAB BLOOD ORDERAB LES Final Result Performing Organization Address [facility] Co de Phone Number [facility] [address] [place] [address] [phone] * Glucose, Whole Blood (05/20/2025 9:16 AM EDT) Glucose, Whole Blood 103 60 - 115 mg/dL [facility] Comment:METER #: [id number] 05/20/2025 9:16 AM EDT 05/20/2025 9:19 AM EDT Generic External Data Provider LAB BLOOD ORDERAB LES Final Result Performing Organization Address [facility] de Phone Number [facility] [address] [place] [address] [phone] * FL Upper GI w/air w/Barium Swallow (04/30/2025 10:00 AM EDT) Anatomical Region Laterality Modality Body Radiographic Keri ging 04/30/2025 10:0 0 AM EDT Narrative 04/30/2025 1:41 PM EDT [address] [address] Fluoroscopy Report Signed Patient: Greg Land MR#: [id number] : 1960 Acct:[id number] Age/Sex: 64 / M ADM Date: 04/30/25 Loc: HO.XRAY Attending Dr: Glenda Rosa [facility] Ordering Physician: Glenda Rosa [facility] Date of Service: 04/30/25 Procedure(s): FL upper GI w air w Ba Swallow Accession Number(s): [id number] cc: Carolina Siddiqi MD; Glenda Rosa [facility] EXAMINATION: XR UPPER GI SERIES WITH [...] 04/30/25 1338 DD/ 1000 TD/TT: 04/30/25 1024 Proof Sorter: AZUCENA Procedure Note Donotuseinterpreter, Image - 04/30/[address] [address] Fluoroscopy Report Signed Patient: Rosita Land#: [id number] : 9Acct:[id number] Age/Sex: 64 / MADM Date: 04/30/25 Loc: HO.XRAY Attending Dr: Glenda Rosa [facility]- Ordering Physician: Glenda Rosa [facility] Date of Service: 04/30/25 Procedure(s): FL upper GI w air w Ba Swallow Accession Number(s): [id number] cc: Carolina Siddiqi MD; Glenda Rosa [facility]- EXAMINATION: XR UPPER GI SERIES WITH SMALL [...] 04/30/25 1338 DD/ 1000 TD/TT: 04/30/25 1024 Proof Sorter: MSM us [facility] External Provider IMG FLU OROSCOPY PROCEDURES Final Result * (ABNORMAL) Lipid Panel, Standard (02/11/2025 9:15 AM EDT) Triglycerides 63 <150 mg/dL [facility] Comment:Desirable Triglyceri de: less than 150 mg/dLBorderline High Triglyceride 150-199 mg/dLHigh Triglyceride: 200-499 mg/dLVery High Triglyceride: greater than or equal to 5OO mg/dL Cholesterol 95 <200 mg/dL [facility] Comment:Desirable Cholestero l: less than 200 mg/dLBorderline High Cholesterol: 200-239 mg/dLHigh Cholesterol: greater than 239 mg/dL LDL Cholesterol Calculated 44 <100 mg/dL [facility] Comment:Desirable LDL: less than 100 mg/dLNear Optimal/Above Optimal LDL: 110- 129 mg/dLBorderline High LDL: 130-159 mg/dLHigh LDL: 160-189 mg/dLVery High LDL: greater than or equal to 190 mg/dL HDL Cholesterol 39(L) >40 mg/dL [facility] Comment:Desirable HDL: great er than 40 mg/dL Note: This HDL assay may give artificially low results in patients with liver disease. Blood Venous blood specimen / Unknown 02/11/2025 9:15 AM EDT 02/11/2025 9:15 AM EDT us Carolina Mahajan MD LAB BLOOD ORDERABLES Final Result [facility] [address] [place] [phone] [phone] * (ABNORMAL) Albumin, Random Urine W/Creatinine (02/11/2025 9:13 AM EDT) Creatinine, Urine 72.34 mg/dL [facility] Microalbumin Urine 40.0 mg/L H [facility] Microalbum Creatinine Ratio Ur 55.2(H) <30 ug/mg cr [facility] Comment:Albumin/Creatinine R atio Reference Ranges: Normal: < 30 ug/mg creatinine Microalbuminuria: 30 - 300 ug/mg creatinineClinical Albuminuria: > 300 ug/mg creatinine Urine (Urine, Random) 02/11/2025 9:13 AM EDT 02/11/2025 10:38 AM EDT Carolina Mahajan MD LAB URINE ORDERABLES Final Result [facility] [address] [place] [phone] * (ABNORMAL) POCT HGB A1C (12/10/2024 9:25 AM EDT) Hemoglobin A1C 6.2(A) 4.0 - 6.0 % QC Media Lot # [id number] Lot# Expiration Date Blood 12/10/2024 9:25 AM EDT us Carolina Mahajan MD POINT OF CARE TEST EN TER/EDIT ORDERABLES Final Result * Cologuard?? colon cancer screening (09/27/2023 8:35 AM EST) Cologuard Result Negative Negative 10/06/19 5:26 PM EST [facility] (CLIA #:[id number]) Comment: NEGATIVE TEST RESULT. A negative Cologuard [...] colonoscopy. (Anamaria Gonzales, N Engl J Med 2014;370(14):8848-5392) The normal value (reference range) for this assay is negative. COLOGUARD RE-SCREENING RECOMMENDATION: Periodic colorectal cancer screening is an important part of preventive healthcare for asymptomatic individuals at average risk for colorectal cancer. Following a negative Cologuard result, the [place] [employer] and U.S. Multi-Society Task Force screening guidelines recommend a Cologuard re-screening interval of 3 years. References: [place] [employer] Guideline for Colorectal Cancer Screening: https://www.cancer.org/cancer/xltiy-rngcwr-fytpsd/ygkmgfrvt-zdsstivno-kdhzxkh/ac s-rec ommendations.html.; Kvng DK, Rose HAYNES, Alaina LangK, Colorectal Cancer Screening: Recommendations for Physicians and Patients from the U.S. Multi-Society Task Force on Colorectal Cancer Screening , Am J Gastroenterology 2017; 112:2001-8532. TEST DESCRIPTION: Composite algorithmic analysis of stool [...] (Anamaria Morgan al, N Engl J Med 2014;370(14):8187-7937.) Cologuard may produce a false negative or false positive result (no colorectal cancer or precancerous polyp present at colonoscopy follow up). A negative Cologuard test result does not guarantee the absence of CRC or advanced adenoma (pre-cancer). The current Cologuard screening interval is every 3 years. ([place] [employer] and U.S. Multi-Society Task Force). Cologuard performance data in a 10,000 patient pivotal study using colonoscopy as the reference method can be accessed at the following location: www.Make YES! Happen.com/results. Additional description of the Cologuard test process, warnings and precautions can be found at www.cologuard.com. Stool specimen (specimen) 09/27/2023 8:35 AM EST 09/28/2023 3:50 PM EST Carolina Mahajan MD LAB MOLECULAR DIAGNOS TICS ORDERABLES Final Result [facility] (CLIA #:[id number]) [place] [address], from Last 3 Months or Most Recently Relevant to Health Maintenance [place] [address] Care Teams Veterinary Manager Relationship Specialty Start Date End Date Carolina Siddiqi MD [address] [place] [address] PCP - General Internal Medicine 07/11/23 Jolie Thompson Community Health Worker Case Management 02/14/24
[2025-06-20 10:27] LABS: Hematocrit 38.5 % (42.0-52.0); Hemoglobin 12.4 g/dl (14.0-18.0); Mean Corpuscular HGB Conc 32.2 g/dl (31.0-36.0); Mean Corpuscular Hemoglobin 27.7 pg (27.0-33.0); Mean Corpuscular Volume 86.1 fL (80.0-98.0); NRBC Abs Auto 0.000 X10*3/uL (0.0-0.012); NRBC Pct Auto 0.0 /100WBC (0.0-0.2); Platelet Count 180 X10*3/uL (160-400); Red Blood Count 4.47 X10*6/uL (4.60-5.80); White Blood Count 4.8 X10*3/uL (4.8-10.8)
[2025-06-20 11:09] LABS: Anion Gap 11 (12-20); Blood Urea Nitrogen 16 mg/dL (9-16); Calcium 9.5 mg/dL (8.4-10.2); Carbon Dioxide 29 mmol/L (22-29); Chloride 108 mmol/L (96-108); Estimated Glomerular Filt Rate 38; Potassium 5.3 mmol/L (3.3-5.1); Sodium 143 mmol/L (135-145)
== END 2025-06-20 09:36 | disposition home or self-care (01) ==
LOC: HO.LAB 09:35
PROVIDERS: PCP Internal Medicine; Visit Provider Internal Medicine Hypertension Specialist
DX: N18.9 Chronic kidney disease, unspecified (principal)
CPT/HCPCS: 36415; 80048; 85027

== ENCOUNTER 2025-07-07 10:45 | Outpatient (AMB) | payer OTHER, SELFPAY ==
[2025-07-07 10:55] VITALS: BP 108/60; PULSE 66; O2SAT 98; BMI 23.6
--- NOTE | 2025-07-07 10:55 | HO.NEPHOV ---
Vital Signs 07/07/25 10:55 Height 5 ft 3 in Weight 133 lb BMI 23.6 BP 108/60 Blood Pressure Location Lt brachial Position Sitting Pulse 66 Pulse Source Pulse Oximeter Pulse Oximetry (%) 98 Oxygen Delivery Method Room Air Intake Visit Reasons: Lab Results, confirmed Telecom Field Technician Required: No Telecom Field Technician Services: Telecom Field Technician Offered & Declined Telecom Field Technician Name: Daughter will transalte Accompanied by: Daughter Allergies No Known Allergies Allergy (Verified 07/07/25 10:58) Medication List - Last Reconciled 07/07/25 by Yomi Solis MD amlodipine 10 mg PO QAM aspirin 81 mg PO QAM atorvastatin 80 mg PO BEDTIME blood sugar diagnostic (Freestyle [employer] strips) As directed blood-glucose meter (Freestyle [employer] meter) As directed cholecalciferol (vitamin D3) 50 mcg PO DAILY doxycycline hyclate 100 mg PO BID 14 days dulaglutide (Trulicity) mg subcut QWEEK famotidine 20 mg PO BEDTIME Farxiga (dapagliflozin propanediol) 10 mg PO QAM NS lancets (FreeStyle Lancets) As directed lancets (OneTouch Delica Plus Lancet) As directed metoprolol succinate ER 50 mg PO DAILY metronidazole 1,000 mg (2 x 500 mg) PO BID nitroglycerin (Nitrostat) 0.4 mg sublingual Q5M PRN ondansetron 4 mg PO Q8H PRN pantoprazole 40 mg PO QAM prucalopride (Motegrity) 2 mg PO DAILY sacubitril-valsartan 97-103 mg (Entresto) 1 tab PO BID ticagrelor (Brilinta) 90 mg PO BID HPI Comments Details: 64-year-old man with a history of longstanding diabetes mellitus and coronary disease referred for chronic kidney disease. Serum creatinine has been between 1.5-1.7 mg/dL. He was accompanied by his daughter. She was able to interpret and they did not want an guard supervisor service. Greg has had diabetes mellitus for a long time. No urine studies are available. Urine protein excretion has not been quantitated. However he tells me that he sees lot of foaming during urination. He has heart failure with preserved ejection fraction he is currently on a Entresto. 02/12/25 64-year-old male presenting with concerns regarding kidney function stability and a recent chest pain incident. The patient's estimated glomerular filtration rate (eGFR) is 41%, consistent over the past year. He experienced chest pain that warranted a stress test at [facility] in mid-January, the preliminary results of which were normal. A recent bout with stomach flu has resolved, and urine function concerns have improved. The patient monitors his condition with medication, including Farxiga and Entresto, while also adjusting lifestyle factors such as hydration and salt intake. Overall, the patient has managed to maintain stable kidney function. 07/07/25 - The patient is a 65-year-old male presenting with follow-up for cognitive disease and heart failure management. - Cognitive disease: Follow-up for cognitive disease without specific progression details. - Heart failure: History of heart failure with previous failure on Entresto. - Bacterial infection: Treated with antibiotics for post-colonoscopy infection, with doses remaining. - Hyperkalemia: Potassium level elevated at 5.3 mmol/L, likely dietary related. - Dietary habits: Struggles with salt intake, affecting fluid retention and potassium levels. [facility] Medical History (Updated 07/07/25 @ 11:07 by Yomi Solis MD) Eosinophilic esophagitis Helicobacter pylori (H. pylori) Kidney calculi Carotid artery disease Acute HFrEF (heart failure with reduced ejection fraction) Diabetes HLD (hyperlipidemia) HTN (hypertension) Surgical History History of cholecystectomy S/P cardiac catheterization S/P cardiac cath H/O heart artery stent Hx of appendectomy Social History Household Members: None Housing: Apartment Do you presently have visiting nurse or other home services: No Patient Tobacco Use Status: Never used Tobacco Physical Exam Vital Signs: Last Vital Signs Pulse 66 07/07/25 10:55 BP 108/60 07/07/25 10:55 Pulse Ox 98 07/07/25 10:55 Oxygen Delivery Method Room Air 07/07/25 10:55 BMI result Body Mass Index 23.6 Results Reviewed Nephrology Results: Hgb, (14.0-18.0) 12.4 g/dl L 06/20/25 WBC, (4.8-10.8) 4.8 X10*3/uL 06/20/25 Plt Count, (160-400) 180 X10*3/uL 06/20/25 Sodium, (135-145) 143 mmol/L 06/20/25 Potassium, (3.3-5.1) 5.3 mmol/L H 06/20/25 Chloride, (96-108) 108 mmol/L 06/20/25 Carbon Dioxide, (22-29) 29 mmol/L 06/20/25 BUN, (9-16) 16 mg/dL 06/20/25 Creatinine, (0.5-1.4) 1.80 mg/dL H 06/20/25 Calcium, (8.4-10.2) 9.5 mg/dL 06/20/25 Renal US 11/06/24 Assessment & Plan Assessment & Plan (1) CKD (chronic kidney disease): Code(s): N18.9 - Chronic kidney disease, unspecified Category: Medical (2) CAD (coronary artery disease): Code(s): I25.10 - Atherosclerotic heart disease of [place] coronary artery without angina pectoris Category: Medical (3) Ischemic cardiomyopathy: Code(s): I25.5 - Ischemic cardiomyopathy Category: Medical (4) Anemia: Code(s): D64.9 - Anemia, unspecified Category: Medical (5) Hyperkalemia: Code(s): E87.5 - Hyperkalemia Category: Medical Plan Stage 3 chronic kidney disease in the setting of longstanding diabetes mellitus and coronary disease. Greg probably has diabetic kidney disease. No obstructive uropathy based on USG. Kidneys are echogenic. Glomerular nephritis and interstitial disease seem unlikely based on bland urine sediments No proteinuria The patient's chronic kidney disease is stable, with a consistent eGFR of about 41 ml/mt since December 2023 Recommendations Keep on low-sodium diet Increase PO fluid intake( serum Na 146 due to free water deficit) Maintain blood pressure less than 130/80 Continue to avoid nephrotoxic agents. including NSAIDS Agree with Vitalyxiga for cardiorenal protection Orders: Orders Basic Metabolic Panel 3 Months N18.9 - Chronic kidney disease, unspecified Basic Metabolic Panel 4 Months N18.9 - Chronic kidney disease, unspecified Coding Level of Care Code Est Pt Level 4 (08034) Diagnoses CKD (chronic kidney disease) N18.9 CAD (coronary artery disease) I25.10 Ischemic cardiomyopathy I25.5 Anemia D64.9 Hyperkalemia E87.5
--- OUTSIDE RECORDS SUMMARY | 2025-07-07 13:11 | XMS_ITS | Encounter Summary ---
Author Organization [employer] Address [address] [place] [address] Care Team Providers Care Utility Worker Film Processing Name Role Phone Carolina Siddiqi MD Primary Care Provide r Reason for Visit * Reason Comments Med Refill Encounter Details Date Type Department Care Team ([facility] st Contact Info) Description 05/26/2025 Refill [facility] MED & PEDS [address] [place] [address] Carolina Siddiqi MD [address] [place] [address] Social History Tobacco Use Types Packs/Day Years [...] Care Team (Late st Contact Info) Description 07/08/2025 10:45 AM EDT Office Visit [facility] MEDICINE [address] [place] [address] Carolina Siddiqi MD [address] [place] [address] documented as of this encounter Goals Goal Patient Goal Type Associated Problems Recent Progress Patient-Stated? Author Blood Pressure < 140/90 Blood Pressure 135/72(2024 9:20 AM EDT) No RobsoneIvana, PharmD Take your medication every day Lifestyle No Robsone, Evona, PharmD Hemoglobin A1c < 7 Result Component 6.2( 9:25 AM EDT) No Robsone Evona, PharmD documented as of this encounter Visit Diagnoses Not on filedocumented in this encounter Additional Health Concerns Assessment Noted Time PHQ-9 Depression Total Score: 10 024 10:07 AM EDT documented as of this encounter Care Teams Utility Worker Film Processing Relationship Specialty Start Date End Date Carolina Sididqi MD [address] [place] [address] PCP - General Internal Medicine 07/11/23 Jolie Thompson Community Health Worker Case Management 02/14/24 documented as of this encounter
--- OUTSIDE RECORDS SUMMARY | 2025-07-07 13:11 | XMS_ITS | Data Portability ---
Author Organization [place] - [facility], Allergy Address [address] [place] [phone] Assessment No assessment recorded. Plan of Treatment Reminders Order Date Submit Date Provider Last Modified By Organization Details Last Modified Time Details Appointments None record ed. Lab None record ed. Referral None record ed. Procedures None record ed. Surgeries None record ed. Imaging None record ed. Medication Orders None record ed. Patient TargetsNo targets recorded. Patient InstructionsNo instructions recorded. Reason for Referral None Reported. Problems Name Problem SNOMED Code Status Onset Date Resolution Date Notes Provider Name and Address Organization Details Recorded Time Spasm of the cricopharyngeus muscle 23182873 Active 2024 GAMAL Bailey MD [address] [place] [address], [phone], [place] - [facility] 13:06:19 Oropharyngeal dysphagia 99298720 Active 2024 GAMAL Bailey MD [address] [place] [address], [phone], [facility] - [facility] 13:17:41 Problem Notes None recorded. Procedures Surgical History Date Name Laterality Status Provider Name and Address Organization Details Recorded Time 06/04/2025 FFL_RE completed GMAAL SCHMITT MD [address] [place] [address], [phone], [facility] 06/04/2025 13:08:08 Imaging Results None recorded. Procedure Notes None recorded. Medical Equipment None Reported. Allergies No known drug allergies Medications Name Sig Start Date Stop Date Status Note LastModified by Organization Details LastModified Time atorvastati n 80 mg tablet TAKE 1 TABLET BY MOUTH AT BEDTIME active Not Available Not Available No t Available doxycycline hyclate 100 mg capsule TAKE 1 CAPSULE BY MOUTH TWICE DAILY 06/04 completed Not Available Not Available Not Available metoprolol succinate ER 50 mg tablet,exte nded release 24 hr TAKE 1 TABLET BY MOUTH EVERY MORNING active Not Available Not Available No t Available senna 8.6 mg tablet TAKE 2 TABLETS BY MOUTH EVERY DAY AT BEDTIME FOR CONSTIPAT ION active Not Available Not Available No t Available metronidazo le 500 mg tablet TAKE 2 TABLETS BY MOUTH TWICE DAILY active Not Available Not Available No t Available aspirin 81 mg tablet,patrick yed release TAKE 1 TABLET BY MOUTH EVERY MORNING active Not Available Not Available No t Available acetaminoph en 500 mg tablet TAKE 2 TABLETS BY MOUTH EVERY 8 HOURS NEEDED FOR MILD PAIN FOR UP TO 20 DAYS active Not Available Not Available No t Available ciclopirox 8 % topical solution APPLY TO THE AFFECTED AREA(S) TOPICALLY AT BEDTIME active Not Available Not Available No t Available famotidine 20 mg tablet TAKE 1 TABLET BY MOUTH AT BEDTIME active Not Available Not Available No t Available amlodipine 10 mg tablet TAKE 1 TABLET BY MOUTH EVERY MORNING active Not Available Not Available No t Available pantoprazol e 40 mg tablet,patrick yed release TAKE 1 TABLET BY MOUTH EVERY MORNING active Not Available Not Available No t Available nitroglycer in 0.4 mg sublingual tablet DISSOLVE 1 TABLET UNDER THE TONGUE EVERY 5 MINUTES NEEDED FOR CHEST PAIN. CALL 911 IF NO RELIEF active Not Available Not Available No t Available bisacodyl 5 mg tablet,patrick yed release TAKE 4 TABLETS BY MOUTH ONCE AT NOON THE DAY BEFORE YOUR COLONOSCO PY 06/04 completed Not Available Not Available Not Available polyethylen e glycol 3350 17 gram/dose oral powder MIX WITH WATER DIRECTED THEN FOLLOW INSTRUCTI ON SHEET GIVEN TO YOU AT YOUR DOCTOR'S OFFICE DIRECTED. active Not Available Not Available No t Available fluticasone propionate 50 mcg/actuati on nasal spray,suspe nsion INSTILL 1-2 SPRAYS IN EACH NOSTRIL ONCE DAILY active Not Available Not Available No t Available Alcohol Prep Pads USE DIRECTED TEST BLOOD SUGAR TWICE DAILY active Not Available Not Available No t Available Vitamin D3 50 mcg (2,000 unit) capsule TAKE 1 CAPSULE BY MOUTH EVERY MORNING active Not Available Not Available No t Available Brilinta 90 mg tablet TAKE 1 TABLET BY MOUTH TWICE DAILY IN THE MORNING AND IN THE EVENING active Not Available Not Available No t Available Farxiga 10 mg tablet TAKE 1 TABLET BY MOUTH EVERY MORNING active Not Available Not Available No t Available Trulicity 0.75 mg/0.5 mL subcutaneou s pen injector INJECT ONE PEN (=0.75MG) SUBCUTANE OUSLY ONCE A WEEK DIRECTED active Not Available Not Available No t Available Entresto 97 mg-103 mg tablet TAKE 1 TABLET BY MOUTH TWICE DAILY IN THE MORNING AND IN THE EVENING active Not Available Not Available No t Available Entresto 49 mg-51 mg tablet TAKE 1 TABLET BY MOUTH TWICE DAILY IN THE MORNING AND IN THE EVENING active Not Available Not Available No t Available Accu-Chek Guide test strips TEST BLOOD SUGAR TWICE DAILY DIRECTED active Not Available Not Available No t Available Motegrity 2 mg tablet TAKE 1 TABLET BY MOUTH DAILY active Not Available Not Available No t Available Accu-Chek Guide Me Glucose Meter TEST BLOOD SUGAR TWICE DAILY active Not Available Not Available No t Available OneTouch Delica Plus Lancet 33 gauge USE DIRECTED TO TEST BLOOD SUGAR TWICE DAILY active Not Available Not Available No t Available Vitals Date Recorded Body height Body mass index (BMI) Body weight Provider Name and Address Organization Details Last Updated DateTime 06/04/2025 162.56 cm 22.8 kg/m2 05851.79 g Mi Wilcox [place] - [facility] 06/04/2025 13:06:03 Social History None recorded. Functional Status None recorded. Mental Status None recorded. Family History Nothing Reported. Medical History No medical history recorded. 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 This was done a year ago. He reports his dysphagia has not progressed . He is able to eat and drink most things and just has occasional difficulty with dry foods such as meat and bread. I do not recommend interventi on at this time given his dysphagia is mild. I discussed cutting these foods into small bites and drinking lots of water with his meals. He will advise me if his swallowing worsens. I would be glad to see him as needed. I personally reviewed his swallow study. Laryngosco py was normal. Oropharyng eal dysphagia 34843370 R13.12 8208 See above. Health Concerns Section Related Observation LastModified by Organization Detai ls LastModified Time None Recorded Concern Status LastModified by Organization Details LastModified Time None Recorded Advance Directives Directive None Recorded Payers Insurance Date Sequence Insurance Name Policy Number Policy Delong Covered Member ID Delong Member ID Guarantor Name 06/04/2025 1 [employer] (PPO) [id number] Greg Land Lara [id number] [facility] 06/04/[address] 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 He presents today due to dysphagia. He reports mild dysphagia to solids. Denies dysphagia to liquids. He only has trouble swallowing occasionally with certain dry foods such as meat or bread. He does not smoke. He endorses reflux. He does not take medication. In general he has no trouble breathing. Denies hoarseness. GAMAL SCHMITT MD [address] [place] [address], [place], [phone], [facility] - [facility] 06/04/2025 13:18:47
--- OUTSIDE RECORDS SUMMARY | 2025-07-07 13:12 | XMS_ITS | Clinical Summary ---
Author Organization [facility] Address [address] [place] [address] Phone Care Team Providers Care Supervisor Belt And Link Assembly Name Role Phone Pcp, Unknown Primary Care [...] [place] Care Teams Supervisor Belt And Link Assembly Relationship Specialty Start Date End Date Pcp, Unknown PCP - General 01/26/23 Additional Source Comments The information contained in this document represents components of the legal health record. It is not the complete legal health record.[facility]
--- OUTSIDE RECORDS SUMMARY | 2025-07-07 13:12 | XMS_ITS | Clinical Summary ---
Author Organization [employer] Address [address] [place] [address] 7[address] [place] [address] Care Team Providers Care Shipfitter Apprentice Name Role Phone Carolina Siddiqi MD Primary [...] 024 Active Blood Glucose Monitoring Suppl (FreeStyle [place] Lite) w/Device kitIndications:Ty pe 2 diabetes mellitus [...] 025 2025 Active Lancets (OneTouch Delica Plus Vyxloo02D) miscIndications:T ype 2 diabetes mellitus with hyperglycemia, [...] long-term current use of insulin (HCC) Use 1 strip to monitor blood glucose by subcutaneous route twice daily 100 each 5 025 2025 Active Blood Glucose Monitoring Suppl (Accu-Chek Guide) w/Device kitIndications:Ty pe 2 diabetes mellitus with hyperglycemia, without long-term current use of insulin (HCC) Use to monitor blood glucose twice daily 1 kit 025 Active Entresto 97-103 MG tabletIndications :Primary hypertension,Avionics Electrical Engineer nilam systolic congestive heart failure (HCC) TAKE 1 TABLET BY MOUTH TWICE DAILY IN THE MORNING AND IN THE EVENING 60 tablet 11 Active FREESTYLE LITE test stripIndications: Type 2 diabetes mellitus with hyperglycemia, without long-term current use of insulin (HCC) Use to test blood sugar 2 times daily 100 each 12 024 2024 sacubitril-valsar stoddard (Entresto) 97-103 MG tabletIndications :Primary hypertension,Avionics Electrical Engineer nilam systolic congestive heart failure (HCC) Take 1 tablet by mouth 2 times daily. 60 tablet 12 024 2024 Discontinued Active Problems Problem Noted Date Diagnosed Date H. pylori infection 06/23/2025 Assessment & Plan (06/23/2025 10:19 AM EDT): Currently under treatment prescribed by GI specialist we discussed together regarding side effects he will continue with medications and finish them and then he will follow-up with his specialist again Primary osteoarthritis of right knee 12/10/2024 COVID-19 [...] and routine eye exams Cricopharyngeal achalasia 08/21/2024 Assessment & Plan (06/23/2025 10:19 AM EDT): Continue to follow-up with specialist Encounter for preventive care 07/01/2024 Assessment & [...] he takes his medication Skin lesion 04/03/2024 Assessment & Plan (06/23/2025 10:19 AM EDT): I will refer him to surgery Chronic systolic congestive heart failure 2023 Assessment & Plan (06/23/2025 10:18 AM EDT): Continue to follow-up with cardiology Assessment & Plan (10/01/2024 12:32 PM EST): [...] 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 Also showed 60 % stenosis in mid RCA + Severe diffuse disease in the left PDA--> med management Assessment & Plan (06/23/2025 10:18 AM EDT): Continue to follow-up with cardiology Assessment & Plan (02/26/2024 12:16 PM EDT): C.Cath on 12/21/23 at [facility]: Severe LAD disease + [...] Assessment & Plan (07/11/2023 1:04 PM EDT): [facility] call counseling done, he declines for now medications Type 2 diabetes mellitus wit h hyperglycemia, without long-term current use of insulin 06/05/2023 Assessment & Plan (06/23/2025 10:18 AM EDT): Likely stable today I will order blood work after results we can decide together regarding medications for diabetes Assessment & Plan (12/10/2024 10:16 AM EDT): [...] Encounters Date Type Department Care Team Description 07/07/2025 Refill [facility] [address] [facility] [place] [address] Carolina Siddiqi MD 06/23/2025 9:30 AM EDT Telemedicine [facility] [address] [facility] [place] [address] Carolina Siddiqi MD H. 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; Type 2 diabetes mellitus with hyperglycemia, without long-term current use of insulin ([facility]); Cricopharyngeal achalasia 06/23/2025 Travel 06/20/2025 Orders Only GENERIC EXTERNAL DATA DEPARTMENT Provider, Generic External Data 06/18/2025 Refill [facility] [address] [place] [address] Carolina Siddiqi MD Primary hypertension; Chronic systolic congestive heart failure (HCC) 05/29/2025 Refill [facility] [address] [facility] [place] [address] Bela Garcia RN Type 2 diabetes mellitus with hyperglycemia, without long-term current use of insulin ([facility]/HCC) 05/27/2025 Telephone [facility] [address] [facility] [place] [address] Carolina Siddiqi MD r/s from 06/02/25 provider out 05/26/2025 Refill [facility] [address] [facility] [place] [address] Carolina Siddiqi MD 05/26/2025 Refill [facility] [address] [place] [address] Carolina Siddiqi MD 05/20/2025 Orders Only GENERIC EXTERNAL DATA DEPARTMENT Provider, Generic External Data 04/30/2025 Orders Only [facility] External Provider, [facility] 04/25/2025 Refill [facility] [address] [place] [address] Carolina Siddiqi MD from Last 3 Months Immunizations Immunization [...] Answer Date Recorded Patient Health Questionnaire-9 Score 0 06/23/2025 Patient Health Questionnaire-9 Score 0 06/23/2025 Last PHQ-9: Questionnaire Data Not on file 1 Housing Stability Answer Date Recorded What is [...] Answer Date Recorded Patient Health Questionnaire-2 Score 0 06/23/2025 Internet Access Answer Date Recorded Internet Access [...] Description 07/08/2025 10:45 AM EDT Office Visit [facility] [address] [place] [address] Carolina Siddiqi MD [address] [place] [address] Health Maintenance Due Date Last Done Comments CT Colonography 1960 Colonoscopy 1960 FIT 1960 Sigmoidoscopy 1960 Diabetes: Foot Exam 1969 Hepatitis C Screening 1977 DTaP/Tdap/Td Vaccines (2 - Td or Tdap) 10/02/2023 10/02/2013 FOBT 09/27/2024 09/27/2023 Eye Exam 01/16/2025 01/17/2024, 0504/2024, 01/17/2024, Additional history exists COVID-19 Vaccine ( season) 2025 02/19/2021, 01/22/2021 Influenza Vaccine (#1) 2025 , 05/31/2016, 07/07/2014, Additional history exists Diabetes: Hemoglobin A1C 06/11/2025 025, 07/01/2024, 02/26/2024, Additional history exists SDOH Screening 10/01/2025 10/01/2024 Tobacco Screening 12/10/2025 12/10/2024 Diabetes: Urine Protein Screening 02/11/2026 02/11/2025 Lipid Panel 02/11/2026 02/11/2025, 11/2024, 06/26/2024 Alcohol/Substance Use Screening 06/23/2026 06/23/2025 Depression Screening 06/23/2026 06/23/2025, 06/23/20 Colorectal Cancer Screening 09/27/2026 FIT DNA/Cologuard 09/27/2026 [...] Procedure Name Priority Date/Time Associated Diagnosis Comments BASIC METABOLIC PANEL Routine 06/20/2025 9:48 AM EDT CBC Routine 06/20/2025 9:48 AM EDT HEMATOXYLIN AND EOSIN STAIN Routine 05/20/2025 10:40 AM EDT GLUCOSE, WHOLE BLOOD Routine 05/20/2025 9:16 AM EDT FL UPPER GI W AIR W BARIUM SWALLOW Routine 04/30/2025 10:00 AM EDT LIPID PANEL, STANDARD Routine 02/11/2025 9:15 AM EDT Type 2 diabetes mellitus with hyperglycemia, without long-term current use of insulin ([facility]/HCC) ALBUMIN, RANDOM URINE W/CREATININE Routine 02/11/2025 9:13 AM EDT Type 2 diabetes mellitus with hyperglycemia, without long-term current use of insulin ([facility]/HCC) POCT GLYCATED HEMOGLOBIN, TOTAL Routine 12/10/2024 9:25 AM EDT Type 2 diabetes mellitus with hyperglycemia, without long-term current use of insulin ([facility]/HCC) LAB COLOGUARD COLON CANCER SCREEN Routine 09/27/2023 8:35 AM EST Colon cancer screening from Last 3 Months or Most Recently Relevant to Health Maintenance Results * (ABNORMAL) CBC (06/20/2025 9:48 AM EDT) White Blood Count 4.8 4.8 - 10.8 X10*3/uL [facility] Red Blood Count 4.47(L) 4.60 - 5.80 X10*6/uL [facility] Hemoglobin 12.4(L) 14.0 - 18.0 g/dl [facility] Hematocrit 38.5(L) 42.0 - 52.0 % [facility] Mean Corpuscular Volume 86.1 80.0 - 98.0 fL [facility] Mean Corpuscular Hemoglobin 27.7 27.0 - 33.0 pg [facility] Mean Corpuscular HGB Conc 32.2 31.0 - 36.0 g/dl [facility] Red Cell Distribution Width 15.1 11.0 - 16.0 % [facility] Platelet Count 180 160 - 400 X10*3/uL [facility] Mean Platelet Volume 11.3 9.4 - 12.4 fL [facility] NRBC Pct Auto 0.0 0.0 - 0.2 /100WBC [facility] NRBC Abs Auto 0.000 0.0 - 0.012 X10*3/uL [facility] 06/20/2025 9:48 AM EDT 06/20/2025 9:48 AM EDT us Generic External Data Provider LAB BLOOD ORDERAB LES Final Result [facility] [address] [place] [phone] * (ABNORMAL) Basic Metabolic Panel (06/20/2025 9:48 AM EDT) Sodium 143 135 - 145 mmol/L [facility] Potassium 5.3(H) 3.3 - 5.1 mmol/L [facility] Chloride 108 96 - 108 mmol/L [facility] Carbon Dioxide 29 22 - 29 mmol/L [facility] Anion Gap 11(L) 12 - 20 [facility] Urea Nitrogen (BUN) 16 9 - 16 mg/dL [facility] Creatinine, Serum 1.80(H) 0.5 - 1.4 mg/dL [facility] Estimated Glomerular Filt Rate 38 [facility] Comment:Chronic Kidney Disea se: Estimated GFR < 60 mL/min/1.46u4Myntie Kidney Disease: Estimated GFR < 15 mL/min/1.73m2 Glucose 318(H) 60 - 115 mg/dL [facility] Calcium 9.5 8.4 - 10.2 mg/dL [facility] 06/20/2025 9:48 AM EDT 06/20/2025 9:48 AM EDT us Generic External Data Provider LAB BLOOD ORDERAB LES Final Result [facility] [address] [place] [address] [phone] * Hematoxylin and Eosin Stain (05/20/2025 10:40 AM EDT) 05/20/2025 10:4 0 AM EDT 05/20/2025 11:56 AM EDT Narrative [facility] - 05/22/2025 12:27 PM EDT ----- ------- Name: Greg Ruano Age/Sex: 64/M : 1960 Unit#: [id number] Attend Dr: Titi Hernandez MD Re05/20/25 Status: [facility] Location: [facility] Disch: ----- ------- SPEC : [id number] RECD: 05/20/25 STATUS: PATRICIA PRINGLE NUM: [id number] ANUP: 05/20/25-1040 [facility] [address]: Titi Hernandez MD ENTERED: 05/20/25 [...] Greg Ruano Age/Sex: 64/M : 1960 Unit#: [id number] Attend Dr: Titi Hernandez MD Re05/20/25 Status: [facility] Location: [facility] Disch: ----- ------- SPEC : [id number] RECD: 05/20/25 STATUS: PATRICIA PRINGLE NUM: [id number] ANUP: 05/20/25 [facility] [address]: Titi Hernandez MD ENTERED: 05/20/25 SP TYPE: Surgical OTHR DR: Carolina Siddiqi MD ORDERED: HE Stain/12, Gross Micro L4/6, IHC, Special st. 2/, H. pylori, AB/PAS/2 Gross Description Received in [...] developed and their performance characteristics determined by [facility]. They have not been cleared or approved by the U.S. Food and Drug Administration (FDA). However, the FDA has determined that such clearance or approval is not necessary. This laboratory is certified under the Clinical Laboratory Improvement Amendments of 1988 (CLIA) as qualified to perform high complexity clinical laboratory testing. CONTINUED ON NEXT PAGE ----- ------- Name: Emery McintyreendezGreg Age/Sex: 64/M : 1960 Unit#: [id number] Attend Dr: Titi Hernandez MD Re05/20/25 Status: [facility] Location: [facility] Disch: ----- ------- SPEC : [id number] RECD: 05/20/25 STATUS: APTRICIA ESCALERAVega NUM: [id number] ANUP: 05/20/25-1040 [facility] [address]: Titi Hernandez MD ENTERED: 05/20/25 SP TYPE: Surgical OTHR DR: Carolina Siddiqi MD ORDERED: HE Stain/12, Gross Micro L4/6, IHC, Special st. 2/2, H. pylori, AB/PAS/2 Copies To: Carolina Siddiqi MD [address] [address] Titi Hernandez MD [facility] [address] [place] [address] [phone] ----- ------- Signed (signature on file) Jennifer Jai 05/22/25 1227 ----- ------- END OF REPORT Generic External Data Provider LAB BLOOD ORDERAB LES Final Result Performing Organization Address [facility]/ZIP Co de Phone Number [facility] [address] [place] [phone] * Glucose, Whole Blood (05/20/2025 9:16 AM EDT) Glucose, Whole Blood 103 60 - 115 mg/dL [facility] Comment:METER #: [id number] 05/20/2025 9:16 AM EDT 05/20/2025 9:19 AM EDT Generic External Data Provider LAB BLOOD ORDERAB LES Final Result Performing Organization Address [facility] Co de Phone Number [facility] [address] [place] [phone] * FL Upper GI w/air w/Barium Swallow (04/30/2025 10:00 AM EDT) Anatomical Region Laterality Modality Body Radiographic Keri ging 04/30/2025 10:0 0 AM EDT Narrative 04/30/2025 1:41 PM EDT [address] [address] Fluoroscopy Report Signed Patient: Greg Land MR#: [id number] : 1960 Acct:[id number] Age/Sex: 64 / M ADM Date: 04/30/25 Loc: HO.XRAY Attending Dr: Glenda Rosa [facility]- Ordering Physician: [facility] Date of Service: 04/30/25 Procedure(s): FL upper GI w air w Ba Swallow Accession Number(s): [id number] cc: Carolina Siddiqi MD; Glenda Rosa [facility] EXAMINATION: XR UPPER GI SERIES WITH SMALL [...] 04/30/25 1338 DD/ 1000 TD/TT: 04/30/25 1024 Peanut Sorter: AZUCENA Procedure Note Donotuseinterpreter, Image - 04/30/[address] [address] Fluoroscopy Report Signed Patient: Rosita Land#: [id number] : 9Acct:[id number] Age/Sex: 64 / MADM Date: 04/30/25 Loc: [facility] Attending Dr: Glenda Rosa [facility] Ordering Physician: Glenda Rosa Date of Service: 04/30/25 Procedure(s): FL upper GI w air w Ba Swallow Accession Number(s): [id number] cc: Carolina Siddiqi MD; Glenda Rosa [facility] EXAMINATION: XR UPPER GI SERIES WITH SMALL [...] 04/30/25 1338 DD/ 1000 TD/TT: 04/30/25 1024 Peanut Sorter: MSM us [facility] External Provider IMG FLU OROSCOPY PROCEDURES Final Result * (ABNORMAL) Lipid Panel, Standard (02/11/2025 9:15 AM EDT) Triglycerides 63 <150 mg/dL [facility] Comment:Desirable Triglyceri de: less than 150 mg/dLBorderline High Triglyceride 150-199 mg/dLHigh Triglyceride: 200-499 mg/dLVery High Triglyceride: greater than or equal to 5OO mg/dL Cholesterol 95 <200 mg/dL [facility] Comment:Desirable Cholestero l: less than 200 mg/dLBorderline High Cholesterol: 200-239 mg/dLHigh Cholesterol: greater than 239 mg/dL LDL Cholesterol Calculated 44 <100 mg/dL [facility] Comment:Desirable LDL: less than 100 mg/dLNear Optimal/Above Optimal LDL: 110- 129 mg/dLBorderline High LDL: 130-159 mg/dLHigh LDL: 160-189 mg/dLVery High LDL: greater than or equal to 190 mg/dL HDL Cholesterol 39(L) >40 mg/dL [facility] Comment:Desirable HDL: great er than 40 mg/dL Note: This HDL assay may give artificially low results in patients with liver disease. Blood Venous blood specimen / Unknown 02/11/2025 9:15 AM EDT 02/11/2025 9:15 AM EDT us Carolina Mahajan MD LAB BLOOD ORDERABLES Final Result [facility] [address] [place] [phone] * (ABNORMAL) Albumin, Random Urine W/Creatinine (02/11/2025 9:13 AM EDT) Pathologist [facility] Creatinine, Urine 72.34 mg/dL [facility] Microalbumin Urine 40.0 mg/L H [facility] Microalbum Creatinine Ratio Ur 55.2(H) <30 ug/mg cr [facility] Comment:Albumin/Creatinine R atio Reference Ranges: Normal: < 30 ug/mg creatinine Microalbuminuria: 30 - 300 ug/mg creatinineClinical Albuminuria: > 300 ug/mg creatinine Urine (Urine, Random) 02/11/2025 9:13 AM EDT 02/11/2025 10:38 AM EDT Carolina Mahajan MD LAB URINE ORDERABLES Final Result Performing Organization Address [facility] de Phone Number [facility] [address] [place] [phone] * (ABNORMAL) POCT HGB A1C (12/10/2024 9:25 AM EDT) [facility] Hemoglobin A1C 6.2(A) 4.0 - 6.0 % QC Media Lot # [id number] Lot# Expiration Date Blood 12/10/2024 9:25 AM EDT Carolina Mahajan MD POINT OF CARE TEST EN TER/EDIT ORDERABLES Final Result * Cologuard?? colon cancer screening (09/27/2023 8:35 AM EST) Pathologist [facility] Cologuard Result Negative Negative 10/06/19 5:26 PM EST [facility] (CLIA #:[id number]) Comment: NEGATIVE TEST RESULT. A negative Cologuard [...] Clarke et al, N Engl J Med 2014;370(14):2024-8541) The normal value (reference range) for this assay is negative. COLOGUARD RE-SCREENING RECOMMENDATION: Periodic colorectal cancer screening is an important part of preventive healthcare for asymptomatic individuals at average risk for colorectal cancer. Following a negative Cologuard result, the [place] Cancer Society and U.S. Multi-Society Task Force screening guidelines recommend a Cologuard re-screening interval of 3 years. References: [place] [employer] Guideline for Colorectal Cancer Screening: https://www.cancer.org/cancer/vbnen-lraenx-mukjfj/lscgltjjx-kssnoofor-bxzspir/ac s-rec ommendations.html.; Kvng DK, Rose CR, Alaina LangK, Colorectal Cancer Screening: Recommendations for Physicians and Patients from the U.S. Multi-Society Task Force on Colorectal Cancer Screening , Am J Gastroenterology 2017; 112:6166-9119. TEST DESCRIPTION: Composite algorithmic analysis of stool [...] (Anamaria Morgan al, N Engl J Med 2014;370(14):9574-8434.) Cologuard may produce a false negative or [...] can be accessed at the following location: www.WHILL/results. Additional description of the Cologuard test process, warnings and precautions can be found at www.[employer]robl[employer].com. Stool specimen (specimen) 09/27/2023 8:35 AM EST 09/28/2023 3:50 PM EST Carolina Mahajan MD LAB MOLECULAR DIAGNOS TICS ORDERABLES Final Result [facility] (CLIA #:[id number]) [address] [place] [address], from Last 3 Months or Most Recently Relevant to Health Maintenance [place] [address] [employer] Care Teams Shipfitter Apprentice Relationship Specialty Start Date End Date Carolina Siddiqi MD [address] [place] [address] PCP - General Internal Medicine 07/11/23 Jolie Thompson Community Health Worker Case Management 02/14/24
--- OUTSIDE RECORDS SUMMARY | 2025-07-07 13:12 | XMS_ITS | Encounter Summary ---
Author Organization [employer] Address [address] [facility] [address]t [place] [address] Care Team Providers Care Coal Chute Worker Name Role Phone Carolina Siddiqi MD Primary Care Provide r Encounter Details Date Type Department Care Team ([facility] st Contact Info) Description 07/19/2024 Orders Only [facility] [address] [place] [address] Carolina Siddiqi MD [address] [place] [address] Social History Tobacco Use Types Packs/Day Years [...] Description 07/08/2025 10:45 AM EDT Office Visit [facility] [address] [place] [phone] Carolina Siddiqi MD [address] [place] [address] documented as of this encounter Goals Goal Patient Goal Type Associated Problems Recent Progress Patient-Stated? Author Blood Pressure < 140/90 Blood Pressure 135/72(2024 9:20 AM EDT) No Bolaske, Evona, PharmD Take your medication every day Lifestyle No Bolaske, Evona, PharmD Hemoglobin A1c < 7 Result Component 6.2( 9:25 AM EDT) No Bolaske, Evona, PharmD documented as of this encounter Visit Diagnoses Not on filedocumented in this encounter Additional Health Concerns Assessment Noted Time PHQ-9 Depression Total Score: 10 024 10:07 AM EDT documented as of this encounter Care Teams Coal Chute Worker Relationship Specialty Start Date End Date Carolina Siddiqi MD [address] [place] [phone] PCP - General Internal Medicine 07/11/23 Jolie Thompson Community Health Worker Case Management 02/14/24 documented as of this encounter
--- OUTSIDE RECORDS SUMMARY | 2025-07-07 13:12 | XMS_ITS | Encounter Summary ---
Author Organization [employer] Address [address] [place] [address] [address]t [place] [address] Care Team Providers Care Senior Applications Architect Name Role Phone Carolina Siddiqi MD Primary Care Provide r Reason for Visit * Reason Comments Med Refill Encounter Details Date Type Department Care Team ([facility] st Contact Info) Description 07/07/2025 Refill [facility] [address] [place] [address] Carolina Siddiqi MD [address] [place] [address] Social History Tobacco Use Types Packs/Day Years [...] Description 07/08/2025 10:45 AM EDT Office Visit [facility] [address] [place] [address] Carolina Siddiqi MD [address] [place] [address] documented as of this encounter Goals Goal [...] Assessment Noted Time PHQ-9 Depression Total Score: 0 06/23/20 9:21 AM EDT documented as of this encounter Care Teams Senior Applications Architect Relationship Specialty Start Date End Date Caroilna Siddiqi MD [address] [place] [address] PCP - General Internal Medicine 07/11/23 Jolie Thompson Community Health Worker Case Management 02/14/24 documented as of this encounter
--- OUTSIDE RECORDS SUMMARY | 2025-07-07 13:12 | XMS_ITS | Encounter Summary ---
Author Organization [employer] Address [address] [facility] [address] [place] [address] Care Team Providers Care Novelty Twister Tender Name Role Phone Carolina Siddiqi MD Primary Care Provide r Encounter Details Date Type Department Care Team ([facility] st Contact Info) Description 02/23/2024 Orders Only [facility] [address] [place] [address] Yeimi Saenz MD [address] [place] [address] Social History Tobacco Use Types Packs/Day Years [...] half the days 02/26/2024 10:07 AM Yeyo Stveen [place] Feeling tired or having little energy [...] Description 07/08/2025 10:45 AM EDT Office Visit [facility] [address] [place] [phone] Carolina Siddiqi MD [address] [place] [phone] documented as of this encounter Visit Diagnoses Not on filedocumented in this encounter Additional Health Concerns Assessment Noted Time PHQ-9 Depression Total Score: 23 023 10:38 AM EDT documented as of this encounter Care Teams Novelty Twister Tender Relationship Specialty Start Date End Date Carolina Siddiqi MD [address] [place] [phone] PCP - General Internal Medicine 07/11/23 Jolie Thompson Community Health Worker Case Management 02/14/24 documented as of this encounter
== END 2025-07-07 11:11 | disposition home or self-care (01) ==
LOC: HO.HKA 10:46
PROVIDERS: PCP Internal Medicine; Visit Provider Internal Medicine Hypertension Specialist
DX: N18.9 Chronic kidney disease, unspecified (principal); I25.10 Atherosclerotic heart disease of native coronary artery without angina pectoris; I25.5 Ischemic cardiomyopathy; D64.9 Anemia, unspecified; E87.5 Hyperkalemia
CPT/HCPCS: 99214

== ENCOUNTER → 2025-07-07 10:45 | Outpatient (BNVA) | payer OTHER, SELFPAY | PROVIDERS: PCP Internal Medicine; Visit Provider Internal Medicine Hypertension Specialist | DX: E11.22 Type 2 diabetes mellitus with diabetic chronic kidney disease (principal); E11.65 Type 2 diabetes mellitus with hyperglycemia; N18.30 Chronic kidney disease, stage 3 unspecified; Z79.4 Long term (current) use of insulin; Z79.85 Long-term (current) use of injectable non-insulin antidiabetic drugs; I13.0 Hypertensive heart and chronic kidney disease with heart failure and stage 1 through stage 4 chronic kidney disease, or unspecified chronic kidney disease; I25.5 Ischemic cardiomyopathy; I25.10 Atherosclerotic heart disease of native coronary artery without angina pectoris; Z95.5 Presence of coronary angioplasty implant and graft; D64.9 Anemia, unspecified; E87.5 Hyperkalemia; Z79.82 Long term (current) use of aspirin | CPT/HCPCS: 99212 ==

== ENCOUNTER → 2025-07-11 10:51 | Outpatient (REF) | payer OTHER, SELFPAY ==
--- OUTSIDE RECORDS SUMMARY | 2025-07-08 10:45 | XMS_ITS | Encounter Summary ---
Author Organization [employer] Address [address] [facility] 7[address] [place] [address] Care Team Providers Care Trades Helper Name Role Phone Carolina Siddiqi MD Primary Care Provide r Reason for Referral * Consultation (Routine) - Closed Specialty Diagnoses / Procedures Referred By Lisette bauer Referred To Contact Physical Therapy Diagnoses Unstable gait Carolina Siddiqi MD [address] [place] [address] Phone: tel: fax: [facility] Physical [facility] [address] [place], [place] Phone: tel: fax: Referral ID Status Reason Start Date Expiration Date V isits Requested Visits Authorized [id number] Closed Specialty Services Required 07/08/2025 07/08/2026 1 1 * Consultation (Routine) - Closed Specialty Diagnoses / Procedures Referred By Contkaron t Referred To Contact Otolaryngology Diagnoses Decreased hearing of right ear Carolina Siddiqi MD [address] [place] [address] Phone: tel: fax: [facility] [address] Phone: tel: fax: Referral ID Status Reason Start Date Expiration Date V isits Requested Visits Authorized [id number] Closed Specialty Services Required 07/08/2025 07/08/2026 1 1 * Consultation (Routine) - Authorized Specialty Diagnoses / Procedures Referred By Contkaron t Referred To Contact Audiology Diagnoses Decreased hearing of right ear Carolina Siddiqi MD [address] [place] [address] Phone: tel: fax: [facility] [address] [place] [address] Dr. Noa Shannon [place] Phone: tel: fax: Referral ID Status Reason Start Date Expiration Date Visits Requested Visits Authorized [id number] Authorized Specialty Services Required 07/08/2026 1 1 * Consultation (Routine) - Authorized Specialty Diagnoses / Procedures Referred By Contkaron t Referred To Contact Podiatry Diagnoses Type 2 diabetes mellitus with hyperglycemia, without long-term current use of insulin (HCC) Onychomycosis Ingrown nail of great toe Carolina Siddiqi MD [address] [place] [address] Phone: tel: fax: Bradford Carranza DPM [address] [place] [id number] Phone: tel: fax: Referral ID Status Reason Start Date Expiration Date Visits Requested Visits Authorized [id number] Authorized Specialty Services Required 07/08/2026 1 1 Encounter Details Date Type Department Care Team (Late st Contact Info) Description 07/08/2025 10:45 AM EDT Office Visit [facility] [address] [place] [address] Carolina Siddiqi MD [address] [place] [address] Type 2 diabetes mellitus with hyperglycemia, without long-term current use of insulin (HCC); Onychomycosis; Ingrown nail of great toe; Decreased hearing of right ear; Coronary artery disease involving [place] coronary artery of [place] heart without angina pectoris; Chronic systolic congestive heart failure (HCC); Unstable gait; Primary insomnia; Encounter for vaccination; Encounter for immunization Social History Tobacco Use Types Packs/Day Years [...] Sign Reading Time Taken Comments Blood Pressure 100/70 07/08/2025 11:09 AM EDT Pulse 67 07/08/2025 11:09 AM EDT Temperature 33.4 C (92.2 F) 07/08/2025 11:09 AM EDT Respiratory Rate 22 07/08/2025 11:09 AM EDT Oxygen Saturation 98% 07/08/2025 11:09 AM EDT Inhaled Oxygen Concentration - - Weight 58.7 kg (129 lb 6.4 oz) 07/08/2025 11:09 AM EDT Height 160 cm (5' 3 ) 07/08/2025 11:09 AM EDT Body Mass Index 22.92 07/08/2025 11:09 AM EDT documented in this encounter Progress Notes * Carolina Mahajan MD - 07/08/2025 10:45 AM EDT SUBJECTIVE: Greg Land is a 65 y.o. year old male who presents for Chronic Disease Management . Greg Land, age 65 years Diabetes Mellitus - Blood sugar reported at 205 mg/dL on day of visit - Hemoglobin A1c at 6.9%, noted to have increased compared to 7 months ago - Home blood sugar typically ranges from 103 to 140 mg/dL, with higher readings 1-2 hours postprandial - No mention of symptoms related to hypoglycemia or hyperglycemia Foot Pain - Onset of pain in the foot reported as starting last night - Pain localized to the area around the toenail ( u??ero or ingrown toenail) Hearing Difficulty - Right ear identified as problematic Knee Pain and Instability - History of physical therapy for knees due to arthritis - Left knee currently more symptomatic, sometimes gives out - Continues home physical therapy for both knees - Reports instability and occasional imbalance while walking Sleep Disturbance - Reports excessive sleepiness - Denies use of melatonin or other sleep aids at night - Denies caffeine or alcohol consumption at night Social History Social History Narrative Not on file Problem List[1] Type 2 diabetes mellitus with hyperglycemia, without long-term current use of insulin (HCC) HTN (hypertension) Bilateral hearing loss Depressive state Loneliness Colon cancer screening Unstable gait Verruca Onycholysis Coronary artery disease of [place] artery of [place] heart with stable angina pectoris Acute systolic congestive heart failure (HCC) Chronic systolic congestive heart failure (HCC) GERD (gastroesophageal reflux disease) Dysphagia Nausea Skin lesion History of cardiac catheterization Ischemic cardiomyopathy NSTEMI (non-ST elevated myocardial infarction) ([facility]) Acute HFrEF (heart failure with reduced ejection fraction) ([facility]) Encounter for preventive care Chronic pain of right knee Cricopharyngeal achalasia COVID-19 Rhinitis Both eyes affected by mild nonproliferative diabetic retinopathy with macular edema, associated with type 2 diabetes mellitus (HCC) Primary osteoarthritis of right knee H. pylori infection Acute hyperglycemia Anemia Benign essential hypertension Cellulitis CKD (chronic kidney disease) Closed fracture of right great toe Diabetes mellitus ([facility]) History of uncontrolled hypertension Influenza A Mixed hyperlipidemia Viral syndrome Weight loss CAD (coronary artery disease) Spasm of the cricopharyngeus muscle Oropharyngeal dysphagia Patellofemoral arthritis of right knee Bronchitis Onychomycosis Ingrown nail of great toe Decreased hearing of right ear Family History[2] Review of Systems Constitutional: Negative. HENT: Negative. Respiratory: Negative. Cardiovascular: Negative. Musculoskeletal: Positive for arthralgias and myalgias. OBJECTIVE: Vitals: 07/08/25 1109 BP: 100/70 BP Location: Left arm Patient Position: Sitting BP Cuff Size: Adult Pulse: 67 Resp: 22 Temp: 92.2 ??F (33.4 ??C) TempSrc: Temporal SpO2: 98% Weight: 129 lb 6.4 oz (58.7 kg) Height: 5' 3 (1.6 m) Physical Exam Constitutional: Appearance: Normal appearance. Cardiovascular: Rate and Rhythm: Normal rate and regular rhythm. Pulmonary: Effort: Pulmonary effort is normal. Breath sounds: Normal breath sounds. Abdominal: General: Abdomen is flat. Palpations: Abdomen is soft. Musculoskeletal: Right lower leg: No edema. Left lower leg: No edema. Neurological: Mental Status: He is alert. Follow Up: No follow-ups on file. Medications Ordered Prior to Encounter[3] Problem List Items Addressed This Visit Type 2 diabetes mellitus with hyperglycemia, without long-term current use of insulin ([facility]) Relevant Orders POCT Glucose (Completed) POCT Hgb A1c (Completed) Referral to Podiatry Onychomycosis Relevant Orders Referral to Podiatry Ingrown nail of great toe Relevant Orders Referral to Podiatry Decreased hearing of right ear Relevant Orders Referral to Audiology Referral to ENT CAD (coronary artery disease) Chronic systolic congestive heart failure (HCC) Unstable gait Relevant Orders Referral to Physical Therapy Type 2 diabetes mellitus with hyperglycemia, without long-term current use of insulin (HCC): - Glycemic control is slightly elevated compared to 7 months ago, but remains within acceptable limits. No medication adjustment required at this time. - Continue current diabetes management. Advised to avoid sweets, sugary drinks, and to drink water or sugar-free beverages. Monitor blood glucose at home. Follow-up in 3 months. Onychomycosis: - Referral to podiatry for evaluation and management. Ingrown nail of great toe: - Ingrown nail present on the great toe. - Referral to podiatry for assessment and treatment. Decreased hearing of right ear: - Decreased hearing in right ear reported, no prior audiology evaluation. - Referral to audiology for hearing assessment. Coronary artery disease involving [place] coronary artery of [place] heart without angina pectoris: - Coronary artery disease under ongoing management by cardiology. - Continue follow-up with cardiology. Do not miss scheduled cardiology appointments. Chronic systolic congestive heart failure (HCC): - Chronic systolic heart failure under management. - Continue current management. Monitor symptoms. Maintain scheduled cardiology follow-up. Unstable gait: - Gait instability present, with occasional imbalance. - Ordered physical therapy for gait and balance training. Primary insomnia: - Insomnia present, with difficulty maintaining sleep. - Advised sleep hygiene measures including avoiding caffeine, limiting screen time before bed, avoiding heavy meals and excessive fluids before sleep, and maintaining a comfortable room temperature. Melatonin recommended; may increase dose if current regimen is ineffective. This note was drafted using [employer] technology. The patient/patient's guardian has been informed and has consented to the use of this technology: Yes [1] Patient Active Problem List Diagnosis Type 2 diabetes mellitus with hyperglycemia, without long-term current use of insulin (HCC) HTN (hypertension) Bilateral hearing loss Depressive state Loneliness Colon cancer screening Unstable gait Verruca Onycholysis Coronary artery disease of [place] artery of [place] heart with stable angina pectoris Acute systolic congestive heart failure (HCC) Chronic systolic congestive heart failure (HCC) GERD (gastroesophageal reflux disease) Dysphagia Nausea Skin lesion History of cardiac catheterization Ischemic cardiomyopathy NSTEMI (non-ST elevated myocardial infarction) (HCC) Acute HFrEF (heart failure with reduced ejection fraction) ([facility]) Encounter for preventive care Chronic pain of right knee Cricopharyngeal achalasia COVID-19 Rhinitis Both eyes affected by mild nonproliferative diabetic retinopathy with macular edema, associated with type 2 diabetes mellitus ([facility]) Primary osteoarthritis of right knee H. pylori infection Acute hyperglycemia Anemia Benign essential hypertension Cellulitis CKD (chronic kidney disease) Closed fracture of right great toe Diabetes mellitus ([facility]) History of uncontrolled hypertension Influenza A Mixed hyperlipidemia Viral syndrome Weight loss CAD (coronary artery disease) Spasm of the cricopharyngeus muscle Oropharyngeal dysphagia Patellofemoral arthritis of right knee Bronchitis Onychomycosis Ingrown nail of great toe Decreased hearing of right ear [2] No family history on file. [3] Current Outpatient Medications on File Prior to Visit Medication Sig Dispense Refill Alcohol Swabs (Alcohol Prep) 70 % pads USE DIRECTED TO TEST BLOOD SUGAR TWICE DAILY 100 each 3 aspirin 81 MG EC tablet Take 1 tablet (81 mg) by mouth Once per day. 30 tablet 3 atorvastatin (Lipitor) 80 MG tablet Take 1 tablet by mouth at bedtime. Blood Glucose Monitoring Suppl (Accu-Chek Guide) w/Device kit Use to monitor blood glucose twice daily 1 kit 0 Blood Glucose Monitoring Suppl (FreeStyle [place] Lite) w/Device kit Use to test blood [...] >140/90 on home monitor. 1 each 0 ciclopirox (Penlac) 8 % solution Apply topically at bedtime. 6 mL 1 clotrimazole (Lotrimin) 1 % cream APPLY TOPICALLY TO THE AFFECTED AREA(S) OF THE SKIN AND TOENAILS EVERY DAY DIRECTED FOR 12 WEEKS dapagliflozin (Farxiga) 10 MG Take 1 tablet (10 mg) by mouth Once per day. 30 tablet 2 Entresto 97-103 MG tablet TAKE 1 TABLET BY MOUTH TWICE DAILY IN THE MORNING AND IN THE EVENING 60 tablet 11 famotidine (Pepcid) 20 MG tablet Take 1 tablet (20 mg) by mouth Once per day. 30 tablet 11 fluticasone (Flonase) 50 MCG/ACT nasal spray Administer 1-2 sprays into each nostril Once per day. Shake gently. Before first use, prime pump. After use, clean tip and replace cap. 16 g 0 glucose blood (Accu-Chek Guide Test) test strip Use 1 strip to monitor blood glucose by subcutaneous route twice daily 100 each 5 glucose blood (FREESTYLE LITE) test strip USE DIRECTED TO TEST BLOOD SUGAR ONCE DAILY 100 each 11 glucose blood (OneTouch Ultra Test) test strip Use to check BS twice daily as directed 100 each 12 Lancets (OneTouch Delica Plus [id number]) misc USE TO TEST BLOOD SUGAR TWICE DAILY DIRECTED 100 each 5 lidocaine (Lidoderm) 5 % patch APPLY 1 PATCH TOPICALLY TO SKIN, LEAVE ON FOR 12 HOURS AND OFF FOR 12 HOURS DIRECTED FOR 28 DAYS metoprolol succinate XL (Toprol-XL) 50 MG 24 hr tablet TAKE 1 TABLET BY MOUTH EVERY MORNING 90 tablet 3 ondansetron ODT (Zofran-ODT) 8 MG disintegrating tablet DISSOLVE 1 TABLET ENCIMA DE LENGUA EVERY 8 HOURS NEEDED FOR NAUSEA FOR UP TO 7 DAYS 20 tablet 0 ticagrelor (Brilinta) 90 MG tablet Take 1 tablet (90 mg) by mouth 2 times daily. 60 tablet 0 ticagrelor (Brilinta) 90 MG tablet Take 1 tablet (90 mg) by mouth 2 times daily. 60 tablet 0 TRUEplus Lancets 33G misc USE DIRECTED TO TEST BLOOD SUGAR EVERY DAY 100 each 11 Trulicity 0.75 MG/0.5ML solution auto-injector Inject 0.75 mg as directed 1 (one) time per week. 2 mL 11 [DISCONTINUED] ticagrelor (Brilinta) 90 MG tablet Take 1 tablet (90 mg) by mouth 2 times daily. 60 tablet 0 No current facility-administered medications on file prior to visit. documented in this encounter Plan of Treatment Upcoming Encounters Date Type Department Care Team (Late st Contact Info) Description 10/01/2025 10:30 AM EST Office Visit [facility] [address] [place] [address] Carolina Siddiqi MD [address] [place] [address] Scheduled Referrals Name Type Priority Associated Diagnoses Orde r Schedule Referral to Podiatry Outpatient Referral Routine Type 2 diabetes mellitus with hyperglycemia, without long-term current use of insulin ([facility]) Onychomycosis Ingrown nail of great toe Expected: 07/08/2025 (Approximate), Expires: 07/08/2026 Referral to Audiology Outpatient Referral Routine Decreased hearing of right ear Expected: 07/08/2025 (Approximate), Expires: 07/08/2026 Referral to ENT Outpatient Referral Routine Decreased hearing of right ear Expected: 07/08/2025 (Approximate), Expires: 07/08/2026 Referral to Physical Therapy Outpatient Referral Routine Unstable gait Expected: 07/08/2025 (Approximate), Expires: 07/08/2026 documented as of this encounter Goals Goal Patient Goal Type Associated Problems Recent Progress Patient-Stated? Author Blood Pressure < 140/90 Blood Pressure 100/70(2024 11:09 AM EDT) No Ivana Puente PharmD Take your medication every day Lifestyle No Ivana Puente PharmD Hemoglobin A1c < 7 Result Component 6.9( 11:10 AM EDT) No Ivana Puente PharmD documented as of this encounter Procedures Procedure Name Priority Date/Time Associated Diagnosis Comments POCT GLYCATED HEMOGLOBIN, TOTAL Routine 07/08/2025 11:10 AM EDT Type 2 diabetes mellitus with hyperglycemia, without long-term current use of insulin ([facility]) POCT GLUCOSE Routine 07/08/2025 11:10 AM EDT Type 2 diabetes mellitus with hyperglycemia, without long-term current use of insulin ([facility]) documented in this encounter Results * (ABNORMAL) POCT Hgb A1c (07/08/2025 11:10 AM EDT) Hemoglobin A1C 6.9(A) 4.0 - 5.7 % QC Media Lot # [id number] Lot# Expiration Date 51 Blood 07/08/2025 11:1 0 AM EDT us Carolina Mahajan MD POINT OF CARE TEST EN TER/EDIT ORDERABLES Final Result * (ABNORMAL) POCT Glucose (07/08/2025 11:10 AM EDT) Glucose Blood, POC 205(A) 60 - 200 mg/dL QC Media Lot # [id number] Lot# Expiration Date Blood Capillary blood specimen / Unknown 07/08/2025 11:10 AM EDT us Carolina Mahajan MD POINT OF CARE TEST EN TER/EDIT ORDERABLES Final Result documented in this encounter Visit Diagnoses Diagnosis Type 2 diabetes mellitus with hyperglycemia, without long-term current use of insulin (HCC) Onychomycosis Dermatophytosis of nail Ingrown nail of great toe Decreased hearing of right ear Coronary artery disease involving [place] coronary artery of [place] heart without angina pectoris Chronic systolic congestive heart failure (HCC) Unstable gait Abnormality of gait Primary insomnia Persistent disorder of initiating or maintaining sleep Encounter for vaccination Encounter for immunization documented in this encounter Additional Health Concerns Assessment Noted Time PHQ-9 Depression Total Score: 0 06/23/20 25 9:21 AM EDT documented as of this encounter Care Teams Trades Helper Relationship Specialty Start Date End Date Carolina Siddiqi MD [address] [place] [id number] PCP - General Internal Medicine 07/11/23 Jolie Thompson Community Health Worker Case Management 02/14/24 documented as of this encounter
--- NOTE | 2025-07-11 10:53 | CA_ITS ---
Transthoracic Echocardiogram Patient (Last, First, Middle): Greg Ruano, Gender: Male Date of : 1960 Age: 65 Procedure Date: 07/11/2025 Procedure Type: Transthoracic Echocardiogram Location: OP Height: 160.02 cm Weight: 59.88 kg BSA: 1.62 m2 Heart Rate: 61 bpm BP: 102 / 54 mmHg Holistic Health Practitioner: TO Referring MD: Tan Mcwilliams MD Symptoms: I25.5 - Ischemic cardiomyopathy Study Quality: Adequate w contrast ECG Rhythm: Sinus Conclusions: - The left ventricular systolic function is moderately decreased. The calculated ejection fraction is 36% by biplane method. - The entire apex, the mid anterior, and mid inferoseptal segments are akinetic. Findings Procedure Information Contrast agent, definity, is being given per protocol without apparent complications. Left Ventricle Mildly increased left ventricular cavity size. There is normal left ventricular wall thickness. The left ventricular systolic function is moderately decreased. The calculated ejection fraction is 36% by biplane method. There is evidence of regional wall motion abnormalities. Evidence suggests grade I (mild) diastolic dysfunction. Wall Motion Rest Echo Findings The entire apex, the mid anterior, and mid inferoseptal segments are akinetic. Right Ventricle Normal right ventricular cavity size. There is low normal right ventricular systolic function. Atria Both atria are normal in size. Aortic Valve There is a normal trileaflet aortic valve. There is no aortic valve stenosis. There is no aortic valve regurgitation. Mitral Valve The mitral valve appears normal. There is trace mitral valve regurgitation. There is no mitral valve stenosis. Pulmonic Valve The pulmonic valve is likely normal. Tricuspid Valve There is trace tricuspid valve regurgitation. Tricuspid regurgitation envelope is inadequate for calculation of right ventricular systolic pressure. Great Vessels The asc aorta and aortic arch are normal in size. Small plaque is seen in the sino tubular ridge. Venous The inferior vena cava is normal in size and collapses greater than 50% with inspiration. Pericardium/Pleural There is a small loculated pericardial effusion overlying the left ventricle. Prior Study Comparison No significant change compared to prior study dated: 04/30/2024. Measurements 2D Linear Measurements IVSd: 0.89 0.6-0.9/0.6-1.0 cm LVIDd: 5.55 3.9-5.3/4.2-5.9 cm LVIDd Index: 3.43 2.4-3.2/2.2-3.1 cm/m2 LVIDs: 3.86 2.0-3.6 cm LVPWd: 0.82 0.7-1.1 cm LA Diam: 3.30 2.7-3.8/3.0-4.0 cm LAIDs Index: 2.04 1.5-2.3 cm/m2 LV Mass: 220.50 67-162/88-224 g LV Mass Index: 136.11 43-95/49-115 g/m2 LVOT Diam: 2.30 3.0+(-)1.3 cm 2D Systolic Function EF 4C: 37.00 >55% EF 2C: 34.80 >55% EF BiP: 36.10 >55% Mitral Valve MV Pk E: 0.51 MV PK A: 1.07 MV Decel Time: 180.00 E/A: 0.50 E'Lateral: 3.26 E'Medial: 3.05 E/E' Med: 16.70 E/E' Lat: 15.60 PHT: 53.00 MVA PHT: 4.15 Decel Becker: 2.84 Aortic Valve AoV Pk Osmany: 0.96 AoV Mn Osmany: 0.70 AoV VTI: 0.18 AoV Pk Grad: 4.00 Aov Mn Grad: 2.00 CORI Cont.VTI: 3.23 LVOT LVOT Pk Osmany: 0.82 LVOT Mn Osmany: 0.52 LVOT VTI: 0.14 LVOT Pk Grad: 3.00 LVOT Mn Grad: 1.00 LVOT Diam: 2.30 LVOT Area: 4.15 Diastolic Function MV Pk E: 0.51 MV Pk A: 1.07 E/A: 0.50 E'Medial: 3.05 E/E' Med: 16.70 E' Laterial: 3.26 E/E' Lat: 15.60 Right Ventricle TAPSE (mm): 18.70 TVS' Osmany: 10.00 Tricuspid Valve RA Press: 3.00 Great Vessels Aorta Sinus of Valsalva: 3.86 2.0-3.5 cm Ao Asc: 3.40 2.1-3.4 cm Ao Arch: 2.80 Updated in Other Vendor System with Status of Final Levi Wilkes MD electronically signed on 07/13/2025 2:15:22 PM with status of Final
--- OUTSIDE RECORDS SUMMARY | 2025-07-11 12:21 | XMS_ITS | Encounter Summary ---
Author Organization [employer] Address [address] [facility] [address] [place] [address] Care Team Providers Care Game Artist Name Role Phone Carolina Siddiqi MD Primary Care Provide r Reason for Visit * Reason Comments Med Refill Encounter Details Date Type Department Care Team ([facility] st Contact Info) Description 05/26/2025 Refill [facility] [address] [place] [address] Carolina Siddiqi MD [address] [place] [address] Social History Tobacco Use Types Packs/Day Years [...] Description 10/01/2025 10:30 AM EST Office Visit [facility] MED[facility] [address] [place] [address] Carolina Siddiqi MD [address] [place] [address] documented as of this encounter Goals Goal Patient Goal Type Associated Problems Recent Progress Patient-Stated? Author Blood Pressure < 140/90 Blood Pressure 100/70(2024 11:09 AM EDT) No RobsoneKanchanona, PharmD Take your medication every day Lifestyle No Bolaske, Evona, PharmD Hemoglobin A1c < 7 Result Component 6.9( 11:10 AM EDT) No Robsone Evona, PharmD documented as of this encounter Visit Diagnoses Not on filedocumented in this encounter Additional Health Concerns Assessment Noted Time PHQ-9 Depression Total Score: 10 024 10:07 AM EDT documented as of this encounter Care Teams Game Artist Relationship Specialty Start Date End Date Carolina Siddiqi MD [address] [place] [phone] PCP - General Internal Medicine 07/11/23 Jolie Thompson Community Health Worker Case Management 02/14/24 documented as of this encounter
--- OUTSIDE RECORDS SUMMARY | 2025-07-11 12:21 | XMS_ITS | Clinical Summary ---
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 Phone Carolina Siddiqi MD [...] 024 Active Blood Glucose Monitoring Suppl (FreeStyle Ranger Lite) w/Device kitIndications:Ty pe 2 diabetes mellitus with hyperglycemia, without long-term current use of insulin ([facility]) Use to test blood sugar 2 times daily 1 kit 024 Active TRUEplus Lancets 33G miscIndications:T ype 2 diabetes mellitus with hyperglycemia, without long-term current use of insulin ([facility]) USE DIRECTED TO TEST BLOOD SUGAR EVERY DAY 100 each 11 024 Active glucose blood (FREESTYLE LITE) test stripIndications: Type 2 diabetes mellitus with hyperglycemia, without long-term current use of insulin ([facility]) USE DIRECTED TO TEST BLOOD SUGAR ONCE DAILY 100 each 11 024 Active Blood Glucose Monitoring Suppl (ONE TOUCH ULTRA 2) w/Device kit Use to check BS twice daily as directed 1 kit Active glucose blood (OneTouch Ultra Test) test strip Use to check BS twice daily as directed 100 each 12 024 2024 Active fluticasone (Flonase) 50 MCG/ACT nasal sprayIndications: Rhinitis, unspecified type Administer 1-2 sprays into each nostril Once per day. Shake gently. Before first use, prime pump. After use, clean tip and replace cap. 16 g 025 2025 Active Lancets (OneTouch Delica Plus [id number]) miscIndications:T ype 2 diabetes mellitus with hyperglycemia, without long-term current use of insulin ([facility]) USE TO TEST BLOOD SUGAR TWICE DAILY DIRECTED 100 each 5 025 Active ciclopirox (Penlac) 8 % solutionIndicatio ns:Onycholysis Apply topically at bedtime. 6 mL 025 Active Trulicity 0.75 MG/0.5ML solution auto-injector Inject 0.75 mg as directed 1 (one) time per week. 2 mL 025 Active metoprolol succinate XL (Toprol-XL) 50 MG 24 hr tablet TAKE 1 TABLET BY MOUTH EVERY MORNING 90 tablet 3 025 Active aspirin 81 MG EC tablet Take 1 tablet (81 mg) by mouth Once per day. 30 tablet 3 Active ticagrelor (Brilinta) 90 MG tablet Take 1 tablet (90 mg) by mouth 2 times daily. 60 tablet Active glucose blood (Accu-Chek Guide Test) test stripIndications: Type 2 diabetes mellitus with hyperglycemia, without long-term current use of insulin ([facility]) Use 1 strip to monitor blood glucose by subcutaneous route twice daily 100 each 5 025 2025 Active Blood Glucose Monitoring Suppl (Accu-Chek Guide) w/Device kitIndications:Ty pe 2 diabetes mellitus with hyperglycemia, without long-term current use of insulin ([facility]) Use to monitor blood glucose twice daily 1 kit Active Entresto 97-103 MG tabletIndications :Primary hypertension,Baseball Glove Stuffer nilam systolic congestive heart failure (HCC) TAKE 1 TABLET BY MOUTH TWICE DAILY IN THE MORNING AND IN THE EVENING 60 tablet 11 Active ticagrelor (Brilinta) 90 MG tablet Take 1 tablet (90 mg) by mouth 2 times daily. 60 tablet Active Alcohol Swabs (Alcohol Prep) 70 % padsIndications:T ype 2 diabetes mellitus with hyperglycemia, without long-term current use of insulin ([facility]) USE DIRECTED TEST BLOOD SUGAR TWICE DAILY 100 each 11 Active Melatonin 3 MG capsuleIndication s:Primary insomnia Take 1 tablet by mouth at bedtime. 30 capsule 2 Active sacubitril-valsar stoddard (Entresto) 97-103 MG tabletIndications :Primary hypertension,Baseball Glove Stuffer nilam systolic congestive heart failure (HCC) Take 1 tablet by mouth 2 times daily. 60 tablet 12 024 2024 Discontinued Alcohol Swabs (Alcohol Prep) 70 % padsIndications:T ype 2 diabetes mellitus with hyperglycemia, without long-term current use of insulin ([facility]) USE DIRECTED TO TEST BLOOD SUGAR TWICE DAILY 100 each 3 025 2024 Discontinued ticagrelor (Brilinta) 90 MG tablet Take 1 tablet (90 mg) by mouth 2 times daily. 60 tablet 025 2024 Discontinued(R eorder (will not trigger notification to Pharmacy)) Active Problems Problem Noted Date Diagnosed Date Acute hyperglycemia 07/08/2025 Anemia 07/08/2025 Benign essential hypertension 07/08/2025 Cellulitis 07/08/2025 CKD (chronic kidney disease) 07/08/2025 Closed fracture of right great toe 07/08/2025 Diabetes mellitus 07/08/2025 History of uncontrolled hypertension 07/08/2025 Influenza A 07/08/2025 Mixed hyperlipidemia 07/08/2025 Viral syndrome 07/08/2025 Weight loss 07/08/2025 CAD (coronary artery disease) 07/08/2025 Patellofemoral arthritis of right knee Bronchitis 07/08/2025 Onychomycosis 07/08/2025 Ingrown nail of great toe 07/08/2025 Decreased hearing of right ear 07/08/2025 Primary insomnia 07/08/2025 H. 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 Also showed 60 % stenosis in mid RCA + Severe diffuse disease in the left PDA--> med management Assessment & Plan (06/23/2025 10:18 AM EDT): Continue to follow-up with cardiology Assessment & Plan (02/26/2024 12:16 PM EDT): C.Cath on 12/21/23 at [facility]: Severe LAD disease [...] in the context of medical issues, early care home, adjusting to living alone and language barrier. [...] Action stage. PLAN: 1. Follow up with [facility]: Not recommended for follow-up 2. Patient goal is to improve health 3. Behavioral Recommendations a. Comply with medical recommendations b. Begin incorporating healthy changes in daily life c. May utilize [facility] and/or hotline, if symptoms worsen d. May reach out to [facility] for additional support Assessment & Plan (07/11/2023 [...] Encounters Date Type Department Care Team Description 07/08/2025 10:45 AM EDT Office Visit [facility] MEDICINE [address] [place] [address] Carolina Siddiqi MD Type 2 diabetes mellitus with hyperglycemia, without long-term current use of insulin (HCC); Onychomycosis; Ingrown nail of great toe; Decreased hearing of right ear; Coronary artery disease involving ute mountain coronary artery of ute mountain heart without angina pectoris; Chronic systolic congestive heart failure (HCC); Unstable gait; Primary insomnia; Encounter for vaccination; Encounter for immunization 07/08/2025 Travel 07/08/2025 Refill [facility] [address] [place] [address] Carolina Siddiqi MD Type 2 diabetes mellitus with hyperglycemia, without long-term current use of insulin (HCC) 07/07/2025 Refill [facility] MEDICINE [address] [place] [address] Carolina Siddiqi MD 07/07/2025 Telephone [facility] MEDICINE [address] [place] [address] Carolina Siddiqi MD Chart Prep 07/07/2025 Refill [facility] [address] [place] [address] Carolina Siddiqi MD 06/23/2025 9:30 AM EDT Telemedicine [facility] MED[facility]INE [address] [place] [address] Carolina Siddiqi MD H. 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 Travel 06/20/2025 Orders Only GENERIC EXTERNAL DATA DEPARTMENT Provider, Generic External Data 06/18/2025 Refill [facility] [address] [place] [address] Carolina Siddiqi MD Primary hypertension; Chronic systolic congestive heart failure (HCC) 05/29/2025 Refill [facility] MED[facility] [address] [place] [address] Bela Garcia RN Type 2 diabetes mellitus with hyperglycemia, without long-term current use of insulin ([facility]/HCC) 05/27/2025 Telephone [facility] MEDICINE [address] [place] [address] Carolina Siddiqi MD r/s from 06/02/25 provider out 05/26/2025 Refill [facility] MED[facility] [address] [place] [address] Carolina Siddiqi MD 05/26/2025 Refill [facility] P[facility]S [address] [place] [address] Carolina Siddiqi MD 05/20/2025 Orders Only GENERIC EXTERNAL DATA DEPARTMENT Provider, Generic External Data 04/30/2025 Orders Only [facility] External Provider, [facility] 04/25/2025 Refill [facility] [address] [place] [address] Carolina Siddiqi MD from Last 3 Months Immunizations Immunization Administration Dates Next Due Influenza injectable quadrivalent preservative f ree 05/31/2016,10/02/2013 Influenza, High Dose Seasonal, Preservative Free 07/08/2025,06/17/2024 Influenza, seasonal, injectable, preservative fr ee 07/07/2014 Pfizer Covid-19 Vaccine 12+ 07/08/2025 Pneumococcal Conjugate PCV 20 07/01/2024 Pneumococcal Polysaccharide [...] Mass Index 22.92 07/08/2025 11:09 AM EDT Plan of Treatment Upcoming Encounters Date Type Department Care Team (Late st Contact Info) Description 10/01/2025 10:30 AM EST Office Visit [facility] MEDICINE [address] [place] [phone] Carolina Siddiqi MD [address] [place] [address] Health Maintenance Due Date Last Done Comments CT Colonography 1960 Colonoscopy 1960 FIT 1960 Sigmoidoscopy 1960 Diabetes: Foot Exam 1969 Hepatitis C Screening 1977 DTaP/Tdap/Td Vaccines (2 - Td or Tdap) 10/02/2023 10/02/2013 FOBT 09/27/2024 09/27/2023 Eye Exam 01/16/2025 01/17/2024, 05/0 04/2024, 01/17/2024, Additional history exists SDOH Screening 10/01/2025 10/01/2024 COVID-19 Vaccine ( season) 2026 07/08/2025, 02/19/2021, 01/22/2021 Diabetes: Hemoglobin A1C 01/06/2026 025, 12/10/2024, 07/01/2024, Additional history exists Diabetes: Urine Protein Screening 02/11/2026 02/11/2025 Lipid Panel 02/11/2026 02/11/2025, 11/2024, 06/26/2024 Alcohol/Substance Use Screening 06/23/2026 06/23/2025 Depression Screening 06/23/2026 06/23/2025, 06/23/20 Tobacco Screening 07/08/2026 07/08/2025 Colorectal Cancer Screening 09/27/2026 FIT DNA/Cologuard 09/27/2026 09/27/2023 RSV Patients and Patients Aged 60 years or older Completed 01/26/2024 Zoster Vaccines Completed 06/17/2024, 01/26/2024 Pneumococcal Vaccine: 50+ Years Completed 07/01/2024, 02/19/2014 Influenza Vaccine Completed 07/08/2025, , 05/31/2016, Additional history exists HIB Vaccines Aged Out No longer eligi [...] 11:10 AM EDT) No Ivana Puente PharmD Procedures Procedure Name Priority Date/Time Associated Diagnosis Comments POCT GLYCATED HEMOGLOBIN, TOTAL Routine 07/08/2025 11:10 AM EDT Type 2 diabetes mellitus with hyperglycemia, without long-term current use of insulin ([facility]) POCT GLUCOSE Routine 07/08/2025 11:10 AM EDT Type 2 diabetes mellitus with hyperglycemia, without long-term current use of insulin ([facility]) BASIC METABOLIC PANEL Routine 06/20/2025 9:48 AM [...] hyperglycemia, without long-term current use of insulin ([facility]/HCC) ALBUMIN, RANDOM URINE W/CREATININE Routine 02/11/2025 9:13 AM EDT Type 2 diabetes mellitus with hyperglycemia, without long-term current use of insulin (CMS/HCC) LAB COLOGUARD COLON CANCER SCREEN Routine 09/27/2023 8:35 AM EST Colon cancer screening from Last 3 Months or Most Recently Relevant to Health Maintenance Results * (ABNORMAL) POCT Hgb A1c (07/08/2025 11:10 AM EDT) Hemoglobin A1C 6.9(A) 4.0 - 5.7 % QC Media Lot # [id number] Lot# Expiration Date Blood 07/08/2025 11:1 0 AM EDT us Carolina Mahajan MD POINT OF CARE TEST EN TER/EDIT ORDERABLES Final Result * (ABNORMAL) POCT Glucose (07/08/2025 11:10 AM EDT) [facility] Glucose Blood, POC 205(A) 60 - 200 mg/dL QC Media Lot # [id number] Lot# Expiration Date Blood Capillary blood specimen / Unknown 07/08/2025 11:10 AM EDT us Carolina Mahajan MD POINT OF CARE TEST EN TER/EDIT ORDERABLES Final Result * (ABNORMAL) CBC (06/20/2025 9:48 AM EDT) [facility] White Blood Count 4.8 4.8 - 10.8 X10*3/uL [facility] Red Blood Count 4.47(L) 4.60 - 5.80 X10*6/uL [facility] Hemoglobin 12.4(L) 14.0 - 18.0 g/dl [facility] Hematocrit 38.5(L) 42.0 - 52.0 % [facility] Mean Corpuscular Volume 86.1 80.0 - 98.0 fL [facility] Mean Corpuscular Hemoglobin 27.7 27.0 - 33.0 pg [facility] Mean Corpuscular HGB Conc 32.2 31.0 - 36.0 g/dl [facility] Red Cell Distribution Width 15.1 11.0 - 16.0 % [facility] Platelet Count 180 160 - 400 X10*3/uL [facility] Mean Platelet Volume 11.3 9.4 - 12.4 fL [facility] NRBC Pct Auto 0.0 0.0 - 0.2 /100WBC [facility] NRBC Abs Auto 0.000 0.0 - 0.012 X10*3/uL [facility] 06/20/2025 9:48 AM EDT 06/20/2025 9:48 AM EDT us Generic External Data Provider LAB BLOOD ORDERAB LES Final Result Performing Organization Address [facility]/ZIP Co de Phone Number [facility] [address] [place] [phone] * (ABNORMAL) Basic Metabolic Panel (06/20/2025 9:48 AM EDT) Sodium 143 135 - 145 mmol/L [facility] Potassium 5.3(H) 3.3 - 5.1 mmol/L [facility] Chloride 108 96 - 108 mmol/L [facility] Carbon Dioxide 29 22 - 29 mmol/L [facility] Anion Gap 11(L) 12 - 20 [facility] Urea Nitrogen (BUN) 16 9 - 16 mg/dL [facility] Creatinine, Serum 1.80(H) 0.5 - 1.4 mg/dL [facility] Estimated Glomerular Filt Rate 38 [facility] Comment:Chronic Kidney Disea se: Estimated GFR < 60 mL/min/1.39r3Gpylzf Kidney Disease: Estimated GFR < 15 mL/min/1.73m2 Glucose 318(H) 60 - 115 mg/dL [facility] Calcium 9.5 8.4 - 10.2 mg/dL [facility] 06/20/2025 9:48 AM EDT 06/20/2025 9:48 AM EDT us Generic External Data Provider LAB BLOOD ORDERAB LES Final Result Performing Organization Address [facility]/ZIP Co de Phone Number [facility] [address] [place] [phone] * Hematoxylin and Eosin Stain (05/20/2025 10:40 AM EDT) 05/20/2025 10:4 0 AM EDT 05/20/2025 11:56 AM EDT [facility] - 05/22/2025 12:27 PM EDT ----- ------- Name: Greg Ruano Age/Sex: 64/M : 1960 Unit#: [id number] Attend Dr: Titi Hernandez MD Re05/20/25 Status: [facility] Location: [facility] Disch: ----- ------- SPEC : [id number] RECD: 05/20/25 STATUS: PATRICIA PRINGLE NUM: [id number] ANUP: 05/20/25-[address] [facility] [address]: Titi Hernandez MD ENTERED: 05/20/25-1158 SP TYPE: Surgical OTHR DR: Carolina Siddiqi [...] CONTINUED ON NEXT PAGE ----- ------- Name: Land LaraGreg dunaway Age/Sex: 64/M [facility] 1960 [id number] [id number] Attend Dr: Titi Hernandez MD Re05/20/25 Status: [facility] Location: [facility] Disch: ----- ------- SPEC : [id number] RECD: 05/20/25-115 STATUS: PATRICIA PRINGLE NUM: [id number] ANUP: 05/20/25-[address] [facility] [address]: Titi Hernandez MD ENTERED: 05/20/25-1159 SP [...] developed and their performance characteristics determined by [facility]. They have not been cleared [...] Greg Ruano Age/Sex: 64/M : 1960 Unit#: [id number] Attend Dr: Titi Hernandez MD Re05/20/25 Status: [facility] Location: [facility] Disch: ----- ------- SPEC : [id number] RECD: 05/20/25 STATUS: PATRICIA PRINGLE NUM: [id number] ANUP: 05/20/25-[address] [facility] [address]: Titi Hernandez MD ENTERED: 05/20/25 SP TYPE: Surgical OTHR DR: Carolina Siddiqi MD ORDERED: HE Stain/12, Gross Micro L4/6, IHC, Special st. 2/2, H. pylori, AB/PAS/2 Copies To: Carolina Siddiqi MD [address] [address] Titi Hernandez MD [facility] [address] [place] [address] [phone] ----- ------- Signed (signature on file) Jennifer Jai 05/22/25 1227 ----- ------- END OF REPORT Generic External Data Provider LAB BLOOD ORDERAB LES Final Result Performing Organization Address [facility] de Phone Number [facility] [address] [place] [phone] * Glucose, Whole Blood (05/20/2025 9:16 AM EDT) Glucose, Whole Blood 103 60 - 115 mg/dL [facility] Comment:METER #: [id number] 05/20/2025 9:16 AM EDT 05/20/2025 9:19 AM EDT Generic External Data Provider LAB BLOOD ORDERAB LES Final Result Performing Organization Address [facility] de Phone Number [facility] [address] [place] [phone] * FL Upper GI w/air w/Barium Swallow (04/30/2025 10:00 AM EDT) Anatomical Region Laterality Modality Body Radiographic Keri ging 04/30/2025 10:0 0 AM EDT Narrative 04/30/2025 1:41 PM EDT [address] [address] Fluoroscopy Report Signed Patient: Greg Land MR#: [id number] : 1960 Acct:[id number] Age/Sex: 64 / M ADM Date: 04/30/25 Loc: [facility] Attending Dr: Glenda PELLETIER-CALEB Ordering Physician: Glenda Rosa Date of Service: 04/30/25 Procedure(s): FL upper GI w air w Ba Swallow Accession Number(s): [id number] cc: Carolina Siddiqi MD; Glenda Rosa [facility] EXAMINATION: XR UPPER GI SERIES WITH [...] 04/30/25 1338 DD/ 1000 TD/TT: 04/30/25 1024 Commercial Insulator: AZUCENA Procedure Note Donotuseinterpreter, Image - 04/30/[address] [address] Fluoroscopy Report Signed Patient: Rosita Land#: [id number] : 9Acct:[id number] Age/Sex: 64 / MADM Date: 04/30/25 Loc: [facility] Attending Dr: Glenda Rosa [facility] Ordering Physician: Glenda Rosa [facility] Date of Service: 04/30/25 Procedure(s): FL upper GI w air w Ba Swallow Accession Number(s): [id number] cc: Carolina Siddiqi MD; Glenda Rosa [facility] EXAMINATION: XR UPPER GI SERIES WITH [...] 04/30/25 1338 DD/ 1000 TD/TT: 04/30/25 1024 Commercial Insulator: MSM us [facility] External Provider IMG FLU OROSCOPY PROCEDURES Final Result * (ABNORMAL) Lipid Panel, Standard (02/11/2025 9:15 AM EDT) Triglycerides 63 <150 mg/dL [facility] Comment:Desirable Triglyceri de: less than 150 mg/dLBorderline High Triglyceride 150-199 mg/dLHigh Triglyceride: 200-499 mg/dLVery High Triglyceride: greater than or equal to 5OO mg/dL Cholesterol 95 <200 mg/dL [facility] Comment:Desirable Cholestero l: less than 200 mg/dLBorderline High Cholesterol: 200-239 mg/dLHigh Cholesterol: greater than 239 mg/dL LDL Cholesterol Calculated 44 <100 mg/dL [facility] Comment:Desirable LDL: less than 100 mg/dLNear Optimal/Above Optimal LDL: 110- 129 mg/dLBorderline High LDL: 130-159 mg/dLHigh LDL: 160-189 mg/dLVery High LDL: greater than or equal to 190 mg/dL HDL Cholesterol 39(L) >40 mg/dL [facility] Comment:Desirable HDL: great er than 40 mg/dL Note: This HDL assay may give artificially low results in patients with liver disease. Blood Venous blood specimen / Unknown 02/11/2025 9:15 AM EDT 02/11/2025 9:15 AM EDT us Carolina Mahajan MD LAB BLOOD ORDERABLES Final Result [facility] [address] [place], [place] [phone] * (ABNORMAL) Albumin, Random Urine W/Creatinine (02/11/2025 9:13 AM EDT) Creatinine, Urine 72.34 mg/dL [facility] Microalbumin Urine 40.0 mg/L [facility] Microalbum Creatinine Ratio Ur 55.2(H) <30 ug/mg cr [facility] Comment:Albumin/Creatinine R atio Reference Ranges: Normal: < 30 ug/mg creatinine Microalbuminuria: 30 - 300 ug/mg creatinineClinical Albuminuria: > 300 ug/mg creatinine Urine (Urine, Random) 02/11/2025 9:13 AM EDT 02/11/2025 10:38 AM EDT Carolina Mahajan MD LAB URINE ORDERABLES Final Result [facility] [address] [place] [address] [phone] * Cologuard?? colon cancer screening (09/27/2023 8:35 AM EST) Cologuard Result Negative Negative 10/06/19 5:26 PM EST [employer] (CLIA #:[id number]) Comment: NEGATIVE TEST RESULT. A negative Cologuard [...] (Anamaria Morgan al, N Engl J Med 2014;370(14):6940-4040) The normal value (reference range) for this assay is negative. COLOGUARD RE-SCREENING RECOMMENDATION: Periodic colorectal cancer screening is an important part of preventive healthcare for asymptomatic individuals at average risk for colorectal cancer. Following a negative Cologuard result, the [place] [employer] and U.S. Multi-Society Task Force screening guidelines recommend a Cologuard re-screening interval of 3 years. References: [place] [employer] Guideline for Colorectal Cancer Screening: https://www.cancer.org/cancer/hufto-rnfpfo-axfeqh/cwxjlhwtj-cdqgkcbqe-murjnwh/ac s-rec ommendations.html.; Kvng DK, Rose CR, Alaina LangK, Colorectal Cancer Screening: Recommendations for Physicians and Patients from the U.S. Multi-Society Task Force on Colorectal Cancer Screening , Am J Gastroenterology 2017; 112:2941-6165. TEST DESCRIPTION: Composite algorithmic analysis of stool [...] (Anamaria Morgan al, N Engl J Med 2014;370(14):0011-6041.) Cologuard may produce a false negative or false positive result (no colorectal cancer or precancerous polyp present at colonoscopy follow up). A negative Cologuard test result does not guarantee the absence of CRC or advanced adenoma (pre-cancer). The current Cologuard screening interval is every 3 years. ([place] [employer] and U.S. Multi-Society Task Force). Cologuard performance data in a 10,000 patient pivotal study using colonoscopy as the reference method can be accessed at the following location: www.[employer].tv.[employer]/results. Additional description of the Cologuard test process, warnings and precautions can be found at www.YeePayrd.com. Stool specimen (specimen) 09/27/2023 8:35 AM EST 09/28/2023 3:50 PM EST Carolina Mahajan MD LAB MOLECULAR DIAGNOS TICS ORDERABLES Final Result [employer] (CLIA #:[id number]) 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
--- OUTSIDE RECORDS SUMMARY | 2025-07-11 12:21 | XMS_ITS | Data Portability ---
Author Organization [place] - [facility], Allergy Address [address] [place] [id number] Assessment No assessment recorded. Plan of Treatment [...] Recorded Time Spasm of the cricopharyngeus muscle 69865177 Active 2024 GAMAL Bailey MD [address] [place] [address], [phone], [place] - [facility] 13:06:19 Oropharyngeal dysphagia 27999124 Active 2024 GAMAL Bailey MD [address] [place] [address], [phone], [facility] - [facility] 13:17:41 Problem Notes None recorded. Procedures Surgical History Date Name Laterality Status Provider Name and Address Organization Details Recorded Time 06/04/2025 FFL_RE completed GAMAL SCHMITT MD [address] [place] [address], [phone], [facility] 06/04/2025 13:08:08 Imaging Results None recorded. [...] Updated DateTime 06/04/2025 162.56 cm 22.8 kg/m2 19327.79 g Mi Wilcox [place] - [facility] 06/04/2025 13:06:03 Social History None recorded. Functional Status None recorded. Mental Status None recorded. Family History Nothing Reported. Medical History No medical history recorded. Past Encounters Encounter ID Performer Location Encounter Start Date Encounter Closed Date Diagnosis/Indication Diagnosis SNOMED-CT Code Diagnosis ICD10 Code Diagnosis IMO Codes Diagnosis Note [id number] GAMAL SCHMITT MD [facility] [address] [phone] 06/04/2025 12:59:50 06/04/2025 15:36:29 Spasm of the cricopharyngeus muscle 84780027 K22.0 [id number] I reviewed his swallow study [...] Laryngosco py was normal. Oropharyng eal dysphagia 72507719 R13.12 8208 See above. Health Concerns Section Related Observation LastModified by Organization Detai ls LastModified Time None Recorded Concern Status LastModified by Organization Details LastModified Time None Recorded Advance Directives Directive None Recorded Payers Insurance Date Sequence Insurance Name Policy Number Policy Delong Covered Member ID Delong Member ID Guarantor Name 06/04/2025 1 [employer] (PPO) [id number] Greg Land Lara [id number] [facility] 06/04/2025 1 [facility] (MEDICARE REPLACEMENT/A DVANTAGE - HMO) Greg Land Lara [id number] [facility] Notes Date Note Type Note [...] trouble breathing. Denies hoarseness. GAMAL SCHMITT MD [address] [place] [address], [place], [phone], [facility] - [facility] 06/04/2025 13:18:47
--- OUTSIDE RECORDS SUMMARY | 2025-07-11 12:21 | XMS_ITS | Encounter Summary ---
Author Organization [employer] Address [address] [facility] 7t [place] [address] Care Team Providers Care Lead Quality Control Technician Name Role Phone Carolina Siddiqi MD Primary Care Provide r Encounter Details Date Type Department Care Team ([facility] st Contact Info) Description 02/23/2024 Orders Only [facility] [address] [place] [address] Yeimi Saenz MD [address] [place] [address] Social History Tobacco Use Types Packs/Day Years [...] Description 10/01/2025 10:30 AM EST Office Visit [facility] [address] [place] [phone] Carolina Siddiqi MD [address] [place] [address] documented as of this encounter Visit Diagnoses Not on filedocumented in this encounter Additional Health Concerns Assessment Noted Time PHQ-9 Depression Total Score: 23 023 10:38 AM EDT documented as of this encounter Care Teams Lead Quality Control Technician Relationship Specialty Start Date End Date Carolina Siddiqi MD [address] [place] [id number] PCP - General Internal Medicine 07/11/23 Jolie Thompson Community Health Worker Case Management 02/14/24 documented as of this encounter
--- OUTSIDE RECORDS SUMMARY | 2025-07-11 12:22 | XMS_ITS | Clinical Summary ---
Author Organization [facility] Address [address] [place] [address] Phone Care Team Providers Care Dual Hose Cementer Name Role Phone Pcp, Unknown Primary Care [...] [place] Care Teams Dual Hose Cementer Relationship Specialty Start Date End Date Pcp, Unknown PCP - General 01/26/23 Additional Source Comments The information contained in this document represents components of the legal health record. It is not the complete legal health record.[facility]
--- OUTSIDE RECORDS SUMMARY | 2025-07-11 12:22 | XMS_ITS | Encounter Summary ---
Author Organization [employer] Address [address] [facility] 7t [place] [address] Care Team Providers Care Commercial Manager Name Role Phone Carolina Siddiqi MD Primary Care Provide r Encounter Details Date Type Department Care Team ([facility] st Contact Info) Description 07/07/2025 Refill [facility] [address] [place] [address] Carolina Siddiqi MD [address] [place] [address] Social History Tobacco Use Types Packs/Day Years [...] Description 10/01/2025 10:30 AM EST Office Visit [facility] [address] [place] [address] Carolina Siddiqi MD [address] [place] [address] documented as of this encounter Goals Goal Patient Goal Type Associated Problems Recent Progress Patient-Stated? Author Blood Pressure < 140/90 Blood Pressure 100/70(2024 11:09 AM EDT) No Nancyaske, Kanchanona, PharmD Take your medication every day Lifestyle No Bolaske, Evona, PharmD Hemoglobin A1c < 7 Result Component 6.9( 11:10 AM EDT) No Bolaske, Evona, PharmD documented as of this encounter Visit Diagnoses Not on filedocumented in this encounter Additional Health Concerns Assessment Noted Time PHQ-9 Depression Total Score: 0 06/23/20 25 9:21 AM EDT documented as of this encounter Care Teams Commercial Manager Relationship Specialty Start Date End Date Carolina Siddiqi MD [address] [place] [phone] PCP - General Internal Medicine 07/11/23 Jolie Thompson Community Health Worker Case Management 02/14/24 documented as of this encounter
--- OUTSIDE RECORDS SUMMARY | 2025-07-11 12:22 | XMS_ITS | Encounter Summary ---
Author Organization [employer] Address [address] [facility] 7t [place] [address] Care Team Providers Care Rouge Sifter And Miller Name Role Phone Carolina Siddiqi MD Primary Care Provide r Encounter Details Date Type Department Care Team ([facility] st Contact Info) Description 07/19/2024 Orders Only [facility] [address] [place] [address] Carolina Siddiqi MD [address] [place] [address] Social History Tobacco Use Types Packs/Day Years [...] Visit [facility] [address] [place] [phone] Carolina Siddiqi MD [address] [place] [address] documented as of this encounter Goals Goal Patient Goal Type Associated Problems Recent Progress Patient-Stated? Author Blood Pressure < 140/90 Blood Pressure 100/70(2024 11:09 AM EDT) No Bolaske, Evona, PharmD Take [...] documented as of this encounter Care Teams Rouge Sifter And Miller Relationship Specialty Start Date End Date Carolina Siddiqi MD [address] [place] [id number] PCP - General Internal Medicine 07/11/23 Jolie Thompson Community Health Worker Case Management 02/14/24 documented as of this encounter
--- OUTSIDE RECORDS SUMMARY | 2025-07-11 12:22 | XMS_ITS | Encounter Summary ---
Author Organization [employer] [facility] [employer] Address [address] [facility] 7t [place] [address] Care Team Providers Care Buncher Hand Name Role Phone Carolina Siddiqi MD Primary Care Provide r Encounter Details Date Type Department Care Team (Latest Contact Info) Description 07/08/2025 Travel Social History Tobacco Use Types Packs/Day [...] Description 10/01/2025 10:30 AM EST Office [facility] [address] [place], [place] [phone] Carolina Siddiqi MD 230 [place] [address] documented as of this encounter Goals Goal Patient Goal Type Associated Problems Recent Progress Patient-Stated? Author Blood Pressure < 140/90 Blood Pressure 100/70(2024 11:09 AM EDT) No Ivana Puente, PharmD Take your medication every day Lifestyle No RobsoneIvana, PharmD Hemoglobin A1c < 7 Result Component 6.9( 11:10 AM EDT) No RobsoneIvana, PharmD documented as of this encounter Visit Diagnoses Not on filedocumented in this encounter Additional Health Concerns Assessment Noted Time PHQ-9 Depression Total Score: 0 06/23/20 25 9:21 AM EDT documented as of this encounter Care Teams Buncher Hand Relationship Specialty Start Date End Date Carolina Siddiqi MD [address] [place], [place] [phone] PCP - General Internal Medicine 07/11/23 Jolie Thompson Community Health Worker Case Management 02/14/24 documented as of this encounter
--- OUTSIDE RECORDS SUMMARY | 2025-07-11 12:22 | XMS_ITS | Encounter Summary ---
Author Organization [employer] Address [address] [facility] 7t [place] [address] Care Team Providers Care Timber Girdler Name Role Phone Carolina Siddiqi MD Primary Care Provide r Reason for Visit * Reason Onset Date Comments Chart Prep 07/07/2025 Encounter Details Date Type Department Care Team ([facility] st Contact Info) Description 07/07/2025 Telephone [facility] [address] [place] [address] Carolina Siddiqi MD [address] [place] [address] Chart Prep Social History Tobacco Use Types Packs/Day Years [...] encounter Miscellaneous Notes * Telephone Encounter - Kavya Vides [place] - 07/07/2025 2:10 PM EDT Chart Prep Labs: done Images: done Referrals: appointment pending [facility] Vaccines due: Covid, Flu, and Tdap Screenings: eye exam, foot exam, and Hep C Screening Overdue care gaps: A1c and Glucose documented in this encounter Plan of Treatment Upcoming Encounters Date Type Department Care Team (Late st Contact Info) Description 10/01/2025 10:30 AM EST Office Visit [facility] [address] [place] [address] Carolina Siddiqi MD [address] [place] [address] documented as of this encounter Goals Goal Patient Goal Type Associated Problems Recent Progress Patient-Stated? Author Blood Pressure < 140/90 Blood Pressure 100/70(2024 11:09 AM EDT) No Ivana Puente PharmD Take your medication every day Lifestyle No Ivana Puente PharmD Hemoglobin A1c < 7 Result Component 6.9(10/28/202 5 11:10 AM EDT) No Ivana Puente, PharmD documented as of this encounter Visit Diagnoses Not on filedocumented in this encounter Additional Health Concerns Assessment Noted Time PHQ-9 Depression Total Score: 0 06/23/20 25 9:21 AM EDT documented as of this encounter Care Teams Timber Girdler Relationship Specialty Start Date End Date Carolina Siddiqi MD [address] [place] [address] PCP - General Internal Medicine 07/11/23 Jolie Thompson Community Health Worker Case Management 02/14/24 documented as of this encounter
--- OUTSIDE RECORDS SUMMARY | 2025-07-11 12:22 | XMS_ITS | Encounter Summary ---
Author Organization [employer] Address [address] [place] [address] 7t [place] [address] Care Team Providers Care Prosthetics Assistant Name Role Phone Carolina Siddiqi MD Primary Care Provide r Reason for Visit * Reason Comments Med Refill Encounter Details Date Type Department Care Team ([facility] st Contact Info) Description 07/07/2025 Refill [facility] [address] [place] [address] Carolina Siddiqi MD [address] [place] [address] Social History Tobacco Use Types Packs/Day Years [...] Description 10/01/2025 10:30 AM EST Office Visit [facility] [address] [place] [address] Carolina Siddiqi MD [address] [place] [address] documented as of this encounter Goals Goal Patient Goal Type Associated Problems Recent Progress Patient-Stated? Author Blood Pressure < 140/90 Blood Pressure 100/70(2024 11:09 AM EDT) No Ivana Puente, PharmD Take your medication every day Lifestyle No NancyaskeKanchanona, PharmD Hemoglobin A1c < 7 Result Component 6.9( 11:10 AM EDT) No Robsone Evona, PharmD documented as of this encounter Visit Diagnoses Not on filedocumented in this encounter Additional Health Concerns Assessment Noted Time PHQ-9 Depression Total Score: 0 06/23/20 25 9:21 AM EDT documented as of this encounter Care Teams Prosthetics Assistant Relationship Specialty Start Date End Date Carolina Siddiqi MD [address] [place] [address] PCP - General Internal Medicine 07/11/23 Jolie Thompson Community Health Worker Case Management 02/14/24 documented as of this encounter
--- OUTSIDE RECORDS SUMMARY | 2025-07-11 12:22 | XMS_ITS | Encounter Summary ---
Author Organization [employer] Address [address] [place] [address] 7t [place] [address] Care Team Providers Care Sloop Captain Name Role Phone Carolina Siddiqi MD Primary Care Provide r Reason for Visit * Reason Comments Med Refill Encounter Details Date Type Department Care Team ([facility] st Contact Info) Description 07/08/2025 Refill [facility] [address] [place] [address] Carolina Siddiqi MD [address] [place] [address] Type 2 diabetes mellitus with hyperglycemia, without long-term current use of insulin (HCC) Social History Tobacco Use Types Packs/Day [...] Description 10/01/2025 10:30 AM EST Office Visit [facility] [address] [place] [address] Carolina Siddiqi MD [address] [place] [address] documented as of this encounter Goals Goal Patient Goal Type Associated Problems Recent Progress Patient-Stated? Author Blood Pressure < 140/90 Blood Pressure 100/70(2024 11:09 AM EDT) No Ivana Puente PharmD Take your medication every day Lifestyle No Ivana Puente PharmSindhu Hemoglobin A1c < 7 Result Component 6.9( 11:10 AM EDT) No Ivana Puente PharmD documented as of this encounter Visit Diagnoses Diagnosis Type 2 diabetes mellitus with hyperglycemia, without long-term current use of insulin (HCC) documented in this encounter Additional Health Concerns Assessment Noted Time PHQ-9 Depression Total Score: 0 06/23/20 25 9:21 AM EDT documented as of this encounter Care Teams Sloop Captain Relationship Specialty Start Date End Date Carolina Siddiqi MD [address] [place] [address] PCP - General Internal Medicine 07/11/23 Jolie Thompson Community Health Worker Case Management 02/14/24 documented as of this encounter
== END ==
LOC: HO.CARD 10:51
PROVIDERS: PCP Internal Medicine; Visit Provider Internal Medicine Cardiovascular Disease
DX: I25.5 Ischemic cardiomyopathy (principal)
CPT/HCPCS: 93306; Q9957

== ENCOUNTER → 2025-07-11 10:53 | Outpatient (BNV) | payer OTHER, SELFPAY | PROVIDERS: PCP Internal Medicine; Visit Provider Internal Medicine | DX: I51.89 Other ill-defined heart diseases (principal) | CPT/HCPCS: 93306 ==

== ENCOUNTER 2025-07-28 14:43 | Outpatient (AMB) | payer OTHER, SELFPAY ==
[2025-07-28 14:52] VITALS: BP 120/68; PULSE 60; BMI 24.6
--- NOTE | 2025-07-28 14:52 | A.OFFVIS_ITS ---
Vital Signs 07/28/25 14:52 Height 5 ft 3 in Weight 138 lb 14.259 oz BMI 24.6 BP 120/68 Blood Pressure Location Lt brachial Position Sitting Pulse 60 Intake Visit Reasons: 6 mth f/up echo Intake Note: 6 month follow-up after echo feeling good Receiving Associate Required: Yes Receiving Associate Services: Receiving Associate Offered & Declined Reconciliation Specialist: Reconciliation Specialist Present Accompanied by: Daughter Allergies No Known Allergies Allergy (Verified 07/07/25 10:58) Medication List - Last Reconciled 07/28/25 by Tan Mcwilliams MD amlodipine 10 mg PO QAM aspirin 81 mg PO QAM atorvastatin 80 mg PO BEDTIME blood sugar diagnostic (Freestyle InsuLinx strips) As directed blood-glucose meter (Freestyle InsuLinx meter) As directed cholecalciferol (vitamin D3) 50 mcg PO DAILY dulaglutide (Trulicity) mg subcut QWEEK famotidine 20 mg PO BEDTIME Farxiga (dapagliflozin propanediol) 10 mg PO QAM NS lancets (FreeStyle Lancets) As directed lancets (CoPatientTouch Delica Plus Lancet) As directed metoprolol succinate ER 50 mg PO DAILY metronidazole 1,000 mg (2 x 500 mg) PO BID nitroglycerin (Nitrostat) 0.4 mg sublingual Q5M PRN ondansetron 4 mg PO Q8H PRN pantoprazole 40 mg PO QAM prucalopride (Motegrity) 2 mg PO DAILY sacubitril-valsartan 97-103 mg (Entresto) 1 tab PO BID ticagrelor (Brilinta) 90 mg PO BID HPI Comments Details: Greg comes for follow-up after recent echocardiogram. He has had no new cardiac symptoms. He is present here with daughter who acts as load out worker. He has been taking all his medications. Denies any exertional chest pain. Denies any shortness of breath, orthopnea, PND, leg edema. No lightheadedness, syncope. His last LDL was well optimized. His echocardiogram shows moderate LV systolic dysfunction with wall motion abnormality in LAD territory. His prior myocardial perfusion imaging shows large transmural infarct in the LAD territory without any significant ischemia [facility] Medical History Eosinophilic esophagitis Helicobacter pylori (H. pylori) Kidney calculi Carotid artery disease Acute HFrEF (heart failure with reduced ejection fraction) Diabetes HLD (hyperlipidemia) HTN (hypertension) Surgical History (Updated 07/28/25 @ 15:12 by Tan Mcwilliams MD) S/P cardiac cath S/P cardiac catheterization History of cholecystectomy H/O heart artery stent Hx of appendectomy Social History Household Members: None Housing: Apartment Do you presently have visiting nurse or other home services: No Patient Tobacco Use Status: Never used Tobacco Review of Systems Const Denies chills, Denies fatigue, Denies fever(s), Denies frequent falls, Denies weakness, Denies weight gain and Denies weight loss ENT Denies dizziness Card Denies chest pain, Denies leg edema, Denies lightheadedness, Denies palpitations, Denies dyspnea, Denies dyspnea on exertion, Denies orthopnea and Denies other (loss of consciousness) Resp Denies cough, Denies dyspnea and Denies dyspnea on exertion GI Denies hematochezia and Denies change in stool character Musc Denies abnormal gait, Denies muscle weakness, Denies numbness, Denies radiating pain into limb and Denies tingling Neuro Denies abnormal gait, Denies dizziness, Denies frequent falls, Denies numbness, Denies tingling and Denies weakness Endo Denies fatigue and Denies palpitations Physical Exam Vital Signs: Last Vital Signs Pulse 60 07/28/25 14:52 BP 120/68 07/28/25 14:52 BMI result Body Mass Index 24.6 Const General: healthy appearing and no acute distress Orientation/consciousness: patient oriented x3 HEENT Head: Yes normal to inspection Eyes General: appearance normal, both eyes and all related structures Neck Neck: Yes normal visual inspection Chest Chest palpation & inspection: normal inspection of the chest Resp Effort & Inspection: normal respiratory effort Auscultation: clear to auscultation bilaterally Cardio Jugular venous distension: no JVD Palpation: abnormal PMI displaced PMI Rate: regular rate Rhythm: regular rhythm Heart sounds: S1 normal heart sound present, S2 normal heart sound present, no click, no gallops, no murmurs and no rubs GI Inspection: Yes normal to inspection Palpation (GI): Soft to palpation Skin General skin exam: no rashes or lesions noted Neuro General: patient oriented x3 Extrem General: Yes normal to inspection Psych Appearance: grossly normal Assessment & Plan Assessment & Plan (1) Ischemic cardiomyopathy: Code(s): I25.5 - Ischemic cardiomyopathy Category: Medical Plan: Moderately severe LV systolic dysfunction secondary to ischemic cardiomyopathy with DC in the LAD territory. Clinically euvolemic and well compensated. No signs or symptoms of heart failure. Encouraged to continue current neurohormonal modulation with Entresto, metoprolol and Farxiga. Signs and symptoms of heart failure were discussed. Advised to call me with any symptoms. Encouraged to increase activity level. (2) CAD (coronary artery disease): Code(s): I25.10 - Atherosclerotic heart disease of [place] coronary artery without angina pectoris Category: Medical Plan: CAD status post LAD stenting for anterior STEMI. Continues to have persistent LV systolic dysfunction as above. Does not require dual antiplatelet therapy at this point time. Will give her aspirin 81 mg daily. Continue high-intensity statin therapy with target goal LDL less than 60 mg/dL currently well optimized. Continue aggressive management diabetes goal hemoglobin A1c less than 7%. Will follow up in the clinic in 6 months time, sooner PRN. Thank you for allowing me to partake in his care Coding Level of Care Code Est Pt Level 4 (05308) Complex EM visit Add On G2211 Diagnoses Ischemic cardiomyopathy I25.5 CAD (coronary artery disease) I25.10
--- OUTSIDE RECORDS SUMMARY | 2025-07-29 04:59 | XMS_ITS | Clinical Summary ---
Author Organization [facility] Address [address] [place] [address] Phone Care Team Providers Care Table And Desk Finisher Name Role Phone Pcp, Unknown Primary Care [...] patient's age to complete this topic IPV VACCINES Aged Out No longer eligi ble based on patient's age to complete this topic MENINGOCOCCAL VACCINES (ACWY) Aged Out No longer eligible based on patient's age to complete this topic MENINGOCOCCAL VACCINES (B) Aged Out N o longer eligible based on patient's age to complete this topic Medical Devices Not on file [place] [facility] Care Teams Table And Desk Finisher Relationship Specialty Start Date End Date Pcp, Unknown PCP - General 01/26/23 Additional Source Comments The information contained in this document represents components of the legal health record. It is not the complete legal health record.[facility]
== END 2025-07-28 15:10 | disposition home or self-care (01) ==
LOC: HO.HCS 14:43
PROVIDERS: PCP Internal Medicine; Visit Provider Internal Medicine Cardiovascular Disease
DX: I25.5 Ischemic cardiomyopathy (principal); I25.10 Atherosclerotic heart disease of native coronary artery without angina pectoris
CPT/HCPCS: 99214; G2211

== ENCOUNTER → 2025-07-28 14:43 | Outpatient (BNVA) | payer OTHER, SELFPAY | PROVIDERS: PCP Internal Medicine; Visit Provider Internal Medicine Cardiovascular Disease | DX: I25.5 Ischemic cardiomyopathy (principal); I25.10 Atherosclerotic heart disease of native coronary artery without angina pectoris; I10 Essential (primary) hypertension; Z95.5 Presence of coronary angioplasty implant and graft; Z98.890 Other specified postprocedural states | CPT/HCPCS: 99212 ==

== ENCOUNTER 2025-07-30 09:22 | Outpatient (AMB) | payer OTHER, SELFPAY ==
--- NOTE | 2025-07-30 09:24 | A.OFFVIS_ITS ---
Vital Signs 3 07/30/25 09:29 Height 5 ft 3 in Weight 138 lb BMI 24.4 BP 140/62 H Blood Pressure Location Rt brachial Position Sitting Pulse 71 Intake Visit Reasons: Skin lesion Lt arm Intake Note: Patient referred by PCP Dr. Josefa Mahajan for evaluation and treatment of skin lesion on Lt arm. Present for 10yrs. Patient c/o: painful to touch. Has been I&Ded X3 in the past, last treated about a yr ago. Manager Audit Required: No Accompanied by: daughter Diana Allergies No Known Allergies Allergy (Verified 07/30/25 09:31) Medication List - Last Reconciled 07/30/25 by Mayur Law MD amlodipine 10 mg PO QAM aspirin 81 mg PO QAM atorvastatin 80 mg PO BEDTIME blood sugar diagnostic (Freestyle [employer] strips) As directed blood-glucose meter (Freestyle [employer] meter) As directed cholecalciferol (vitamin D3) 50 mcg PO DAILY dulaglutide (Trulicity) mg subcut QWEEK famotidine 20 mg PO BEDTIME Farxiga (dapagliflozin propanediol) 10 mg PO QAM NS lancets (FreeStyle Lancets) As directed lancets (OneTouch Delica Plus Lancet) As directed metoprolol succinate ER 50 mg PO DAILY metronidazole 1,000 mg (2 x 500 mg) PO BID nitroglycerin (Nitrostat) 0.4 mg sublingual Q5M PRN ondansetron 4 mg PO Q8H PRN pantoprazole 40 mg PO QAM prucalopride (Motegrity) 2 mg PO DAILY sacubitril-valsartan 97-103 mg (Entresto) 1 tab PO BID HPI Comments Details: The patient is a 65-year-old male presenting with a recurrent lesion on his left arm. The lesion has been present for over 10 years and has been removed several times, but it continues to recur. Initially, the lesion was drained, and later, a physician scraped it out without stitches, but it regrew after about a year. The lesion often appears infected, with redness around it, and has been bothersome to the patient. The patient has a history of gallbladder removal and appendectomy. [facility] Medical History Eosinophilic esophagitis Helicobacter pylori (H. pylori) Kidney calculi Carotid artery disease Acute HFrEF (heart failure with reduced ejection fraction) Diabetes HLD (hyperlipidemia) HTN (hypertension) Surgical History S/P cardiac cath S/P cardiac catheterization History of cholecystectomy H/O heart artery stent Hx of appendectomy Social History Household Members: None Housing: Apartment Do you presently have visiting nurse or other home services: No Patient Tobacco Use Status: Never used Tobacco Review of Systems Const All systems reviewed & are unremarkable except as noted in HPI and below Physical Exam Vital Signs: Last Vital Signs Pulse 71 07/30/25 09:29 BP 140/62 H 07/30/25 09:29 BMI result Body Mass Index 24.4 Const General: cooperative, healthy appearing, comfortable and no acute distress HEENT Head: Yes normal to inspection, Yes normocephalic and Yes atraumatic Ears: hearing grossly normal bilaterally Eyes General: appearance normal, both eyes and all related structures Pupils: Equal, round and reactive pupils present EOM: EOMs intact bilaterally Neck Neck: Yes normal visual inspection Chest Chest palpation & inspection: normal inspection of the chest Resp Effort & Inspection: normal respiratory effort Cardio Rate: regular rate Rhythm: regular rhythm GI Inspection: Yes normal to inspection Back/Spine/Pelvis Cervical Spine: normal cervical lordosis Thoracic/Lumbar Spine: thoracic and lumbar spine normal to inspection Skin Lesions: lesion noted Full body images: 2 1. 1-2 cm round lesion with central cratered component and possible retained sebaceous material vs. actinous mound. Neuro Cranial nerves: Yes Equal, round and reactive pupils present Assessment & Plan Assessment & Plan (1) Sebaceous cyst: Code(s): L72.3 - Sebaceous cyst Category: Medical Plan: I told the patient and his daughter that his presentation was consistent with recurrent, incompletely excised sebaceous cyst. I added however that the chronicity of the issue (10 years at least) raised the Specter of possible malignancy. I recommended that he undergo excisional biopsy. I reviewed with them the risks that are involved the session and never. These include but are not limited to bleeding, infection, chronic pain and unsightly scarring. We reviewed the possibility of lesion recurrence. The goal of the procedure would be therapeutic and diagnostic as the tissue be sent for pathology for histologic diagnosis and then further management if needed. They indicated that they understood and wished to proceed with excisional biopsy. Patient Instructions: - Follow up with the wet process miller head assistant to schedule the procedure. - Monitor the lesion for any changes or signs of infection. Coding Level of Care Code New Pt Level 3 (75282) Diagnoses Sebaceous cyst L72.3 Time Spent (min) 30 Comment Patient visit and coordination of care
[2025-07-30 09:29] VITALS: BP 140/62; PULSE 71; BMI 24.4
--- OUTSIDE RECORDS SUMMARY | 2025-07-30 17:16 | XMS_ITS | Continuity of Care Document ---
Author Organization [place] - [facility], [facility] Address [address] [place] [phone] Assessment No assessment recorded. 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 Procedures Surgical History Date Name Laterality Status Provider Name and Address Organization Details Recorded Time 06/04/2025 FFL_RE completed GAMAL SCHMITT MD [address] [place] [address], [phone], [facility] 06/04/2025 13:08:08 Imaging Results None recorded. [...] Updated DateTime 06/04/2025 162.56 cm 22.8 kg/m2 28829.79 g Mi Wilcox [place] - [facility] 06/04/2025 13:06:03 Social History None recorded. Functional Status None recorded. Mental Status None recorded. Family History Nothing Reported. Medical History No medical history recorded. Past Encounters Encounter ID Performer Location Encounter Start Date Encounter Closed Date Diagnosis/Indication Diagnosis SNOMED-CT Code Diagnosis ICD10 Code Diagnosis IMO Codes Diagnosis Note [id number] GAMAL SCHMITT MD [facility] [address] [phone] 06/04/2025 12:59:50 06/04/2025 15:36:29 Spasm of the cricopharyngeus muscle 35470600 K22.0 8187 I reviewed his swallow study [...] Laryngosco py was normal. Oropharyng eal dysphagia 63149703 R13.12 8203 See above. Health Concerns Section Related Observation LastModified by Organization Detai ls LastModified Time None Recorded Concern Status LastModified by Organization Details LastModified Time None Recorded Payers Encounter Date Sequence Insurance Name Policy Number Policy Delong Covered Member ID Delong Member ID Guarantor Name 06/04/2025 1 [facility] (MEDICARE REPLACEMENT/A DVANTAGE - HMO) Greg Lara [id number] Greg Land Notes Date Note Type Note [...] trouble breathing. Denies hoarseness. GAMAL SCHMITT MD [address] [place] [address], [phone], [place] - [facility] 06/04/2025 13:18:47
--- OUTSIDE RECORDS SUMMARY | 2025-07-30 17:17 | XMS_ITS | Data Portability ---
Author Organization [place] - [facility], Allergy Address [address] [place] [phone] Assessment No assessment recorded. Plan of Treatment [...] Recorded Time Spasm of the cricopharyngeus muscle 04662926 Active 2024 GAMAL Baiely MD [address] [place] [address], [phone], [place] - [facility] 13:06:19 Oropharyngeal dysphagia 81802134 Active 2024 GAMAL Bailey MD [address] [place] [address], [phone], [facility] - [facility] 13:17:41 Problem Notes None recorded. Procedures Surgical History Date Name Laterality Status Provider Name and Address Organization Details Recorded Time 06/04/2025 FFL_RE completed GAMAL SCHMITT MD [address] [place] [address], [phone], [facility] 06/04/2025 13:08:08 Imaging Results None recorded. [...] Updated DateTime 06/04/2025 162.56 cm 22.8 kg/m2 01764.79 g Mi Wilcox [place] - [facility] 06/04/2025 13:06:03 Social History None recorded. Functional Status None recorded. Mental Status None recorded. Family History Nothing Reported. Medical History No medical history recorded. Past Encounters Encounter ID Performer Location Encounter Start Date Encounter Closed Date Diagnosis/Indication Diagnosis SNOMED-CT Code Diagnosis ICD10 Code Diagnosis IMO Codes Diagnosis Note [id number] GAMAL SCHMITT MD [facility] of [address] [id number] 06/04/2025 12:59:50 06/04/2025 15:36:29 Spasm of the cricopharyngeus muscle [id number] K22.0 8187 I reviewed his swallow study [...] Laryngosco py was normal. Oropharyng eal dysphagia 20755456 R13.12 8208 See above. Health Concerns Section Related Observation LastModified by Organization Detai ls LastModified Time None Recorded Concern Status LastModified by Organization Details LastModified Time None Recorded Advance Directives Directive None Recorded Payers Insurance Date Sequence Insurance Name Policy Number Policy Delong Covered Member ID Delong Member ID Guarantor Name 07/24/2025 1 [employer] (PPO) [id number] Greg Land Lara [id number] [facility] 07/24/2025 1 [facility] (MEDICARE REPLACEMENT/A DVANTAGE - HMO) Greg Land Lara [id number] [facility] Notes Date Note Type Note Provider Name [...] trouble breathing. Denies hoarseness. GAMAL SCHMITT MD [address] [place] [address], [place], [phone], [facility] - [facility] 06/04/2025 13:18:47
== END 2025-07-30 09:43 | disposition home or self-care (01) ==
LOC: HO.HGS 09:23
PROVIDERS: PCP Internal Medicine; Referring Provider Internal Medicine; Visit Provider Surgery
DX: L72.3 Sebaceous cyst (principal)
CPT/HCPCS: 99204

== ENCOUNTER → 2025-07-30 09:22 | Outpatient (BNVA) | payer OTHER, SELFPAY | PROVIDERS: PCP Internal Medicine; Referring Provider Internal Medicine; Visit Provider Surgery | DX: L72.3 Sebaceous cyst (principal) | CPT/HCPCS: 99202 ==

== ENCOUNTER 2025-08-25 05:54 | Day surgery (SDC) | payer OTHER, SELFPAY ==
--- OUTSIDE RECORDS SUMMARY | 2025-07-31 13:59 | XMS_ITS | Encounter Summary ---
Author Organization [employer] Address [address] [facility] [address] [place] [address] Care Team Providers Care Wardrobe Technician Name Role Phone Carolina Siddiqi MD Primary Care Provide r Reason for Visit * Reason Comments Med Refill Encounter Details Date Type Department Care Team ([facility] st Contact Info) Description 05/26/2025 Refill [facility] [address] [place] [address] Carolina Siddiqi MD [address] [place] [address] Social History Tobacco Use Types Packs/Day Years [...] Description 10/01/2025 10:30 AM EST Office Visit [facility] [address] [place] [address] Carolina Siddiqi MD [address] [place] [address] documented as of this encounter Goals Goal [...] documented as of this encounter Care Teams Wardrobe Technician Relationship Specialty Start Date End Date Carolina Siddiqi MD [address] [place] [address] PCP - General Internal Medicine 07/11/23 Jolie Thompson Community Health Worker Case Management 02/14/24 documented as of this encounter
--- OUTSIDE RECORDS SUMMARY | 2025-07-31 13:59 | XMS_ITS | Encounter Summary ---
Author Organization [employer] Address [address] [place] [address] [address] [place] [address] Care Team Providers Care Package Winder Name Role Phone Carolina Siddiqi MD Primary Care Provide r Reason for Visit * Reason Comments Med Refill Encounter Details Date Type Department Care Team ([facility] st Contact Info) Description 07/31/2025 Refill [facility] [address] [place] [address] Carolina Siddiqi MD [address] [place] [address] Social History Tobacco Use Types Packs/Day Years [...] Description 10/01/2025 10:30 AM EST Office Visit [facility] [address] [place] [address] Carolina Siddiqi MD [address] [place] [address] documented as of this encounter Goals Goal [...] documented as of this encounter Care Teams Package Winder Relationship Specialty Start Date End Date Carolina Siddiqi MD [address] [place] [address] PCP - General Internal Medicine 07/11/23 Jolie Thompson Community Health Worker Case Management 02/14/24 documented as of this encounter
--- OUTSIDE RECORDS SUMMARY | 2025-07-31 13:59 | XMS_ITS | Clinical Summary ---
Author Organization [employer] Address [address] [place] [address] [address] [place] [address] Care Team Providers Care Reformatory Attendant Name Role Phone Carolina Siddiqi MD [...] 024 Active Blood Glucose Monitoring Suppl (FreeStyle [place] Lite) w/Device kitIndications:Ty pe 2 diabetes mellitus with hyperglycemia, without long-term current use of insulin ([facility]) Use to test blood sugar 2 times daily 1 kit Active TRUEplus Lancets 33G miscIndications:T ype 2 diabetes mellitus with hyperglycemia, without long-term current use of insulin ([facility]) USE DIRECTED TO TEST BLOOD SUGAR EVERY DAY 100 each 11 024 Active glucose blood (FREESTYLE LITE) test stripIndications: Type 2 diabetes mellitus with hyperglycemia, without long-term current use of insulin ([facility]) USE DIRECTED TO TEST BLOOD SUGAR ONCE DAILY 100 each 11 024 Active Blood Glucose Monitoring Suppl (ONE TOUCH ULTRA 2) w/Device kit Use to check BS twice daily as directed 1 kit 024 Active fluticasone (Flonase) 50 MCG/ACT nasal sprayIndications: Rhinitis, unspecified type Administer 1-2 sprays into each nostril Once per day. Shake gently. Before first use, prime pump. After use, clean tip and replace cap. 16 g 025 2025 Active Lancets (OneTouch Delica Plus [id number]) miscIndications:T ype 2 diabetes mellitus with hyperglycemia, without long-term current use of insulin ([facility]) USE TO TEST BLOOD [...] hyperglycemia, without long-term current use of insulin ([facility]) Use 1 strip to monitor blood glucose by subcutaneous route twice daily 100 each 5 025 2025 Active Blood Glucose Monitoring Suppl (Accu-Chek Guide) w/Device kitIndications:Ty pe 2 diabetes mellitus with hyperglycemia, without long-term current use of insulin ([facility]) Use to monitor blood glucose twice daily 1 kit Active Entresto 97-103 MG tabletIndications :Primary hypertension,Knee Bolter nilam systolic congestive heart failure (HCC) TAKE 1 TABLET BY MOUTH TWICE DAILY IN THE MORNING AND IN THE EVENING 60 tablet 11 Active ticagrelor (Brilinta) 90 MG tablet Take 1 tablet (90 mg) by mouth 2 times daily. 60 tablet Active Alcohol Swabs (Alcohol Prep) 70 % padsIndications:T ype 2 diabetes mellitus with hyperglycemia, without long-term current use of insulin ([facility]) USE DIRECTED TEST BLOOD SUGAR TWICE DAILY 100 each 11 Active Melatonin 3 MG capsuleIndication s:Primary insomnia Take 1 tablet by mouth at bedtime. 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 Also showed 60 % stenosis in mid RCA + Severe diffuse disease in the left PDA--> med management Assessment & Plan (06/23/2025 10:18 AM EDT): Continue to follow-up with cardiology Assessment & Plan (02/26/2024 12:16 PM EDT): C.Cath on 12/21/23 at [facility]: Severe LAD disease [...] in the context of medical issues, early prison, adjusting to living alone and language barrier. [...] Action stage. PLAN: 1. [facility] [...] Encounters Date Type Department Care Team Description 07/31/2025 Refill [facility] [address] [place] [address] Carolina Siddiqi MD 07/08/2025 10:45 AM EDT Office Visit [facility] [address] [place] [address] Carolina Siddiqi MD Type 2 diabetes mellitus with hyperglycemia, without long-term current use of insulin (HCC); Onychomycosis; Ingrown nail of great toe; Decreased hearing of right ear; Coronary artery disease involving [place] coronary artery of [place] heart without angina pectoris; Chronic systolic congestive heart failure (HCC); Unstable gait; Primary insomnia; Encounter for vaccination; Encounter for immunization 07/08/2025 Travel 07/08/2025 Refill [facility] [address] [place] [address] Carolina Siddiqi MD Type 2 diabetes mellitus with hyperglycemia, without long-term current use of insulin (HCC) 07/07/2025 Refill [facility] [address] [place] [address] Carolina Siddiqi MD 07/07/2025 Telephone [facility] [address] [place] [address] Carolina Siddiqi MD Chart Prep 07/07/2025 Refill [facility] [address] [place] [address] Carolina Siddiqi MD 06/23/2025 9:30 AM EDT Telemedicine [facility] [address] [place] [address] Carolina Siddiqi MD H. pylori infection (Primary Dx); Skin lesion; Chronic systolic congestive heart failure (HCC); Coronary artery disease of [place] artery of [place] heart with stable angina pectoris; Type 2 diabetes mellitus with hyperglycemia, without long-term current use of insulin ([facility]); Cricopharyngeal achalasia 06/23/2025 Travel 06/20/2025 Orders Only GENERIC EXTERNAL DATA DEPARTMENT Provider, Generic External Data 06/18/2025 Refill [facility] [address] [place] [address] Carolina Siddiqi MD Primary hypertension; Chronic systolic congestive heart failure (HCC) 05/29/2025 Refill [facility] [address] [place] [address] Bela Garcia RN Type 2 diabetes mellitus with hyperglycemia, without long-term current use of insulin ([facility]/HCC) 05/27/2025 Telephone [facility] [address] [place] [address] Carolina Siddiqi MD r/s from 06/02/25 provider out 05/26/2025 Refill [facility] [address] [place] [address] Carolina Siddiqi MD 05/26/2025 Refill [facility] [address] [place] [address] Carolina Siddiqi MD 05/20/2025 Orders Only GENERIC EXTERNAL DATA DEPARTMENT Provider, Generic External Data 04/30/2025 Orders Only [facility] External Provider, [facility] from Last 3 Months Immunizations Immunization Administration [...] Description 10/01/2025 10:30 AM EST Office Visit [facility] [address] [place] [address] Carolina Siddiqi MD [address] [place] [address] Health Maintenance Due Date Last Done Comments CT Colonography 1960 Colonoscopy 1960 FIT 1960 Sigmoidoscopy 1959 Diabetes: Foot Exam 1969 Hepatitis C Screening 1977 DTaP/Tdap/Td Vaccines (2 - Td or Tdap) 10/02/2023 10/02/2013 FOBT 09/27/2024 09/27/2023 Eye Exam 01/16/2025 01/17/2024, 0504/2024, 01/17/2024, Additional history exists SDOH Screening 10/01/2025 [...] hyperglycemia, without long-term current use of insulin ([facility]) POCT GLUCOSE Routine 07/08/2025 11:10 AM EDT Type 2 diabetes mellitus with hyperglycemia, without long-term current use of insulin ([facility]) BASIC METABOLIC PANEL Routine 06/20/2025 9:48 AM [...] hyperglycemia, without long-term current use of insulin ([facility]) ALBUMIN, RANDOM URINE W/CREATININE Routine 02/11/2025 9:13 AM EDT Type 2 diabetes mellitus with hyperglycemia, without long-term current use of insulin ([facility]) LAB COLOGUARD COLON CANCER SCREEN Routine 09/27/2023 8:35 AM EST Colon cancer screening from Last 3 Months or Most Recently Relevant to Health Maintenance Results * (ABNORMAL) POCT Hgb A1c (07/08/2025 11:10 AM EDT) Hemoglobin A1C 6.9(A) 4.0 - 5.7 % QC Media Lot # [id number] Lot# Expiration Date Blood 07/08/2025 11:1 0 AM EDT Carolina Mahajan MD POINT OF CARE TEST EN TER/EDIT ORDERABLES Final Result * (ABNORMAL) POCT Glucose (07/08/2025 11:10 AM EDT) [facility] Glucose Blood, POC 205(A) 60 - 200 mg/dL QC Media Lot # [id number] Lot# Expiration Date Blood Capillary blood specimen / Unknown 07/08/2025 11:10 AM EDT Carolina Mahajan MD POINT OF CARE TEST EN TER/EDIT ORDERABLES Final Result * (ABNORMAL) CBC (06/20/2025 9:48 AM EDT) [facility] White Blood Count 4.8 4.8 - 10.8 X10*3/uL [facility] Red Blood Count 4.47(L) 4.60 - 5.80 X10*6/uL [facility] Hemoglobin 12.4(L) 14.0 - 18.0 g/dl [facility] Hematocrit 38.5(L) 42.0 - 52.0 % [facility] Mean Corpuscular Volume 86.1 80.0 - 98.0 fL [facility] Mean Corpuscular Hemoglobin 27.7 27.0 - 33.0 pg [facility] Mean Corpuscular HGB Conc 32.2 31.0 - 36.0 g/dl [facility] Red Cell Distribution Width 15.1 11.0 - 16.0 % [facility] Platelet Count 180 160 - 400 X10*3/uL [facility] Mean Platelet Volume 11.3 9.4 - 12.4 fL [facility] NRBC Pct Auto 0.0 0.0 - 0.2 /100WBC [facility] NRBC Abs Auto 0.000 0.0 - 0.012 X10*3/uL [facility] 06/20/2025 9:48 AM EDT 06/20/2025 9:48 AM EDT us Generic External Data Provider LAB BLOOD ORDERAB LES Final Result Performing Organization Address [facility] Co de Phone Number [facility] [address] [place] [phone] * (ABNORMAL) Basic Metabolic Panel (06/20/2025 9:48 AM EDT) Sodium 143 135 - 145 mmol/L [facility] Potassium 5.3(H) 3.3 - 5.1 mmol/L [facility] Chloride 108 96 - 108 mmol/L [facility] Carbon Dioxide 29 22 - 29 mmol/L [facility] Anion Gap 11(L) 12 - 20 [facility] Urea Nitrogen (BUN) 16 9 - 16 mg/dL [facility] Creatinine, Serum 1.80(H) 0.5 - 1.4 mg/dL [facility] Estimated Glomerular Filt Rate 38 [facility] Comment:Chronic Kidney Disea se: Estimated GFR < 60 mL/min/1.36l8Vuwpkv Kidney Disease: Estimated GFR < 15 mL/min/1.73m2 Glucose 318(H) 60 - 115 mg/dL [facility] Calcium 9.5 8.4 - 10.2 mg/dL [facility] 06/20/2025 9:48 AM EDT 06/20/2025 9:48 AM EDT us Generic External Data Provider LAB BLOOD ORDERAB LES Final Result Performing Organization Address City/[facility]/ZIP Co de Phone Number [facility] [address] [place] [phone] * Hematoxylin and Eosin Stain (05/20/2025 10:40 AM EDT) 05/20/2025 10:4 0 AM EDT 05/20/2025 11:56 AM EDT Narrative [facility] - 05/22/2025 12:27 PM EDT ----- ------- Name: Greg Ruano Age/Sex: 64/M : 1960 Unit#: [id number] Attend Dr: Titi Hernandez MD Re05/20/25 Status: [facility] Location: [facility] Disch: ----- ------- SPEC : [id number] RECD: 05/20/25 STATUS: MARGARITORomario YARY NUM: [id number] ANUP: 05/20/25-[address] [facility] [address]: Titi Hernandez MD ENTERED: 05/20/25 [...] Name: Greg Ruano Age/Sex: 64/M : 1960 [id number]#: [id number] Attend Dr: Titi Hernandez MD Re05/20/25 Status: [facility] Location: [facility] Disch: ----- ------- SPEC : [id number] RECD: 05/20/25 STATUS: PATRICIA PRINGLE NUM: [id number] ANUP: 05/20/25-[address] [facility] [address]: Titi Hernandez MD ENTERED: 05/20/25 [...] developed and their performance characteristics determined by [facility]. They have not been cleared or approved by the U.S. Food and Drug Administration (FDA). However, the FDA has determined that such clearance or approval is not necessary. This laboratory is certified under the Clinical Laboratory Improvement Amendments of 1988 (CLIA) as qualified to perform high complexity clinical laboratory testing. CONTINUED ON NEXT PAGE ----- ------- Name: Emery McintyreGreg dunaway Age/Sex: 64/M : 1960 [id number]#: [id number] Attend Dr: Titi Hernandez MD Re05/20/25 Status: [facility] Location: [place] Disch: ----- ------- SPEC : [id number] RECD: 05/20/25 STATUS: PATRICIA PRINGLE NUM: [id number] ANUP: 05/20/[address] [facility] [address]: Titi Hernandez MD ENTERED: 05/20/25 SP TYPE: Surgical OTHR DR: Carolina Siddiqi MD ORDERED: HE Stain/12, Gross Micro L4/6, IHC, Special st. 2/2, H. pylori, AB/PAS/2 Copies To: Carolina Siddiqi MD [address] [address] Titi Hernandez MD [facility] [address] [place] [address] [phone] ----- ------- Signed (signature on file) Jennifer Vergara 05/22/25 1227 ----- ------- END OF REPORT us Generic External Data Provider LAB BLOOD ORDERAB LES Final Result Performing Organization Address [facility] Co de Phone Number [facility] [address] [place] [phone] * Glucose, Whole Blood (05/20/2025 9:16 AM EDT) Glucose, Whole Blood 103 60 - 115 mg/dL [facility] Comment:METER #: [id number] 05/20/2025 9:16 AM EDT 05/20/2025 9:19 AM EDT Generic External Data Provider LAB BLOOD ORDERAB LES Final Result Performing Organization Address [facility] de Phone Number [facility] [address] [place] [phone] * FL Upper GI w/air w/Barium Swallow (04/30/2025 10:00 AM EDT) Anatomical Region Laterality Modality Body Radiographic Keri ging 04/30/2025 10:0 0 AM EDT Narrative 04/30/2025 1:41 PM EDT [address] [address] Fluoroscopy Report Signed Patient: Greg Land MR#: [id number] : 1960 Acct:[id number] Age/Sex: 64 / M ADM Date: 04/30/25 Loc: RAY Attending Dr: Glenda NICHOLSON Ordering Physician: Glenda Rosa Date of Service: 04/30/25 Procedure(s): FL upper GI w air w Ba Swallow Accession Number(s): [id number] cc: Carolina Siddiqi MD; Glenda Rosa EXAMINATION: XR UPPER GI SERIES WITH SMALL [...] 04/30/25 1338 DD/ 1000 TD/TT: 04/30/25 1024 Regional Account Director: [facility] Procedure Note Donotuseinterpreter, Image - 04/30/[address] [address] Fluoroscopy Report Signed Patient: Rosita Land#: [id number] : 9Acct:[id number] Age/Sex: 64 / MADM Date: 04/30/25 Loc: HO.XRAY Attending Dr: Glenda Rosa [employer]-BC Ordering Physician: Glenda Rosa-BC Date of Service: 04/30/25 Procedure(s): FL upper GI w air w Ba Swallow Accession Number(s): [id number] cc: Carolina Siddiqi MD; Glenda Rosa [facility] EXAMINATION: XR UPPER GI SERIES WITH [...] 04/30/25 1338 DD/ 1000 TD/TT: 04/30/25 1024 Regional Account Director: [facility] External Provider IMG FLU OROSCOPY PROCEDURES Final Result * (ABNORMAL) Lipid Panel, Standard (02/11/2025 9:15 AM EDT) Triglycerides 63 <150 mg/dL [facility] Comment:Desirable Triglyceri de: less than 150 mg/dLBorderline High Triglyceride 150-199 mg/dLHigh Triglyceride: 200-499 mg/dLVery High Triglyceride: greater than or equal to 5OO mg/dL Cholesterol 95 <200 mg/dL [facility] Comment:Desirable Cholestero l: less than 200 mg/dLBorderline High Cholesterol: 200-239 mg/dLHigh Cholesterol: greater than 239 mg/dL LDL Cholesterol Calculated 44 <100 mg/dL [facility] Comment:Desirable LDL: less than 100 mg/dLNear Optimal/Above Optimal LDL: 110- 129 mg/dLBorderline High LDL: 130-159 mg/dLHigh LDL: 160-189 mg/dLVery High LDL: greater than or equal to 190 mg/dL HDL Cholesterol 39(L) >40 mg/dL [facility] Comment:Desirable HDL: great er than 40 mg/dL Note: This HDL assay may give artificially low results in patients with liver disease. Blood Venous blood specimen / Unknown 02/11/2025 9:15 AM EDT 02/11/2025 9:15 AM EDT us Carolina Mahajan MD LAB BLOOD ORDERABLES Final Result [facility] [address] [place], [place] [phone] * (ABNORMAL) Albumin, Random Urine W/Creatinine (02/11/2025 9:13 AM EDT) Creatinine, Urine 72.34 mg/dL [facility] Microalbumin Urine 40.0 mg/L [facility] Microalbum Creatinine Ratio Ur 55.2(H) <30 ug/mg cr [facility] Comment:Albumin/Creatinine R atio Reference Ranges: Normal: < 30 ug/mg creatinine Microalbuminuria: 30 - 300 ug/mg creatinineClinical Albuminuria: > 300 ug/mg creatinine Urine (Urine, Random) 02/11/2025 9:13 AM EDT 02/11/2025 10:38 AM EDT Carolina Mahajan MD LAB URINE ORDERABLES Final Result [facility] [address] [place] [address] [phone] * Cologuard?? colon cancer screening (09/27/2023 8:35 AM EST) Cologuard Result Negative Negative 10/06/19 5:26 PM EST [employer] (CLIA #:[id number]) Comment: NEGATIVE TEST RESULT. A negative Cologuard [...] (Anamaria Morgan al, N Engl J Med 2014;370(14):7035-7666) The normal value (reference range) for this assay is negative. COLOGUARD RE-SCREENING RECOMMENDATION: Periodic colorectal cancer screening is an important part of preventive healthcare for asymptomatic individuals at average risk for colorectal cancer. Following a negative Cologuard result, the [place] [employer] Society and U.S. Multi-Society Task Force screening guidelines recommend a Cologuard re-screening interval of 3 years. References: [place] [employer] Guideline for Colorectal Cancer Screening: https://www.cancer.org/cancer/rtcmo-snotlm-amdtmn/shkwnmfky-vsdpinqxb-kgrvfaf/ac s-rec ommendations.html.; Kvng FINNEY, Rose HAYNES, Alaina GRIFFIN, Colorectal Cancer Screening: Recommendations for Physicians and Patients from the U.S. Multi-Society Task Force on Colorectal Cancer Screening , Am J Gastroenterology 2017; 112:5499-1779. TEST DESCRIPTION: Composite algorithmic analysis of stool [...] (Anamaria Morgan al, N Engl J Med 2014;370(14):9137-1410.) Cologuard may produce a false negative or false positive result (no colorectal cancer or precancerous polyp present at colonoscopy follow up). A negative Cologuard test result does not guarantee the absence of CRC or advanced adenoma (pre-cancer). The current Cologuard screening interval is every 3 years. ([place] [employer] Society and U.S. Multi-Society Task Force). Cologuard performance data in a 10,000 patient pivotal study using colonoscopy as the reference method can be accessed at the following location: www.Starbates.myeasydocs/results. Additional description of the Cologuard test process, warnings and precautions can be found at www.[employer] Search[employer].com. Stool specimen (specimen) 09/27/2023 8:35 AM EST 09/28/2023 3:50 PM EST Carolina Mahajan MD LAB MOLECULAR DIAGNOS TICS ORDERABLES Final Result [employer] (CLIA #:[id number]) [place] [address], from Last 3 Months or Most Recently Relevant to Health Maintenance Insurance [id number] [employer] Care Teams Reformatory Attendant Relationship Specialty Start Date End Date Carolina Siddiqi MD [address] [place] [phone] PCP - General Internal Medicine 07/11/23 Jolie Thompson Community Health Worker Case Management 02/14/24
--- OUTSIDE RECORDS SUMMARY | 2025-07-31 13:59 | XMS_ITS | Encounter Summary ---
Author Organization [employer] Address [address] [facility] [address]t [place] [address] Care Team Providers Care Carbon Grinder Name Role Phone Carolina Siddiqi MD Primary Care Provide r Encounter Details Date Type Department Care Team ([facility] st Contact Info) Description 02/23/2024 Orders Only [facility] [address] [place] [address] Yeimi Saenz MD [address] [place] [address] Social History Tobacco Use Types Packs/Day Years [...] 10/01/2025 10:30 AM EST Office Visit [facility] [address] [place] [phone] Carolina Siddiqi MD [address] [place] [phone] documented as of this encounter Visit Diagnoses Not on filedocumented in this encounter Additional Health Concerns Assessment Noted Time PHQ-9 Depression Total Score: 23 023 10:38 AM EDT documented as of this encounter Care Teams Carbon Grinder Relationship Specialty Start Date End Date Carolina Siddiqi MD [address] [place] [phone] PCP - General Internal Medicine 07/11/23 Jolie Thompson Community Health Worker Case Management 02/14/24 documented as of this encounter
--- OUTSIDE RECORDS SUMMARY | 2025-07-31 13:59 | XMS_ITS | Encounter Summary ---
Author Organization [employer] Address [address] [facility] [address]t [place] [address] Care Team Providers Care Public Services Assistant Name Role Phone Carolina Siddiqi MD Primary Care Provide r Encounter Details Date Type Department Care Team ([facility] st Contact Info) Description 07/19/2024 Orders Only [facility] [address] [place] [address] Carolina Siddiqi MD [address] [place] [address] Social History Tobacco Use Types Packs/Day Years [...] Description 10/01/2025 10:30 AM EST Office Visit [facility] [address] [place] [phone] Carolina Siddiqi MD [address] [place] [address] documented as of this encounter Goals Goal [...] as of this encounter Care Teams Public Services Assistant Relationship Specialty Start Date End Date Carolina Siddiqi MD [address] [place] [phone] PCP - General Internal Medicine 07/11/23 Jolie Thompson Community Health Worker Case Management 02/14/24 documented as of this encounter
--- OUTSIDE RECORDS SUMMARY | 2025-07-31 14:01 | XMS_ITS | Encounter Summary ---
Author Organization [employer] Address [address] [place] [address] 7t [place] [address] Care Team Providers Care Organ Grinder Name Role Phone Carolina Siddiqi MD Primary Care Provide r Reason for Visit * Reason Comments Med Refill Encounter Details Date Type Department Care Team ([facility] st Contact Info) Description 07/07/2025 Refill [facility] [address] [place] [address] Carolina Siddiqi MD [address] [place] [address] Social History Tobacco Use Types Packs/Day Years [...] Description 10/01/2025 10:30 AM EST Office Visit [facility] [address] [place] [address] Carolina Siddiqi MD [address] [place] [address] documented as of this encounter Goals Goal [...] documented as of this encounter Care Teams Organ Grinder Relationship Specialty Start Date End Date Carolina Siddiqi MD [address] [place] [address] PCP - General Internal Medicine 07/11/23 Jolie Thompson Community Health Worker Case Management 02/14/24 documented as of this encounter
--- OUTSIDE RECORDS SUMMARY | 2025-07-31 14:01 | XMS_ITS | Clinical Summary ---
Author Organization [facility] Address [address] [place] [address] Phone Care Team Providers Care Gun Perforator Name Role Phone Pcp, Unknown Primary Care [...] [place] Care Teams Gun Perforator Relationship Specialty Start Date End Date Pcp, Unknown PCP - General 01/26/23 Additional Source Comments The information contained in this document represents components of the legal health record. It is not the complete legal health record.[facility]
[2025-08-13 12:42] VITALS: BMI 24.4
--- NOTE | 2025-08-13 13:34 | HO.ANESPROP2 ---
Documented by User: Joan Maria NP 08/20/25 11:54 HPI - Anesthesia Eval Consult details Narrative: 65 yr old male for left Excision Upper Extremity Mass, scheduled 08/25/25; phone PAT done by RN due to pt missing appt. 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 DOS electrolytes ordered. Ischemic cardiomyopathy: follows [facility] cards, last visit 07/28/25; h/o moderately severe LV dysfunction secondary to ischemic cardiomyopathy with [place] in the LAD terriory. He was euvolemic on exam, well compensated, no signs of HF. On neurohormonal moedulation with entresto, metoprolol, farxiga. CAD: s/p LAD stening for anterio STEMI 12/2023. Chronic Systolic Congestive Heart Failure: most recent echo EF 36% by biplane method *Intermediate cardiac risk for above procedure per cardiology. GERD: on PPI Anesthesia Pre-Procedure Meds Is the patient on any of the following meds?: GLP1/DPP4 and SGLT2 Inhib PMFSH Active Problems Active Problems: All Active Problems Sebaceous cyst (Acute) Hyperkalemia (Acute) Helicobacter pylori (H. pylori) (Acute) Weight loss (Acute) Anemia (Acute) CKD (chronic kidney disease) (Acute) CAD (coronary artery disease) (Acute) Patellofemoral arthritis of right knee (Acute) Ischemic cardiomyopathy (Acute) NSTEMI (non-ST elevated myocardial infarction) (Acute) Eosinophilic esophagitis (Acute) Diabetes (Acute) Past Medical History Medical History GERD (gastroesophageal reflux disease) Depression CKD (chronic kidney disease) CAD (coronary artery disease) Ischemic cardiomyopathy NSTEMI (non-ST elevated myocardial infarction) Eosinophilic esophagitis Kidney calculi Acute HFrEF (heart failure with reduced ejection fraction) Diabetes HLD (hyperlipidemia) HTN (hypertension) Family History Family history of problems with anesthesia: No Surgical History Surgical History History of esophagogastroduodenoscopy (EGD) (05/20/25) Hx of colonoscopy (05/20/25) S/P cardiac cath S/P cardiac catheterization History of cholecystectomy Hx of appendectomy History of Problems with Anesthesia: No Social History Social History Household Members: None Housing: Apartment Are you a primary daycare teacher to a significant other at home: No Do you presently have visiting nurse or other home services: Yes (daughter-[employer]PER[employer]) Patient Tobacco Use Status: Never used Tobacco Use of substances other than those prescribed or required for medical reasons: No Have you been hit, kicked, punched, or otherwise hurt by someone within the past year? If so, by whom?: No Spiritual Healthcare Practices: no [facility] Practices: no Cultural Healthcare Practices: no Are you DNR?: No Advance Directives on File: No Meds Allergies Allergy/AdvReac Type Severity Reaction Status Date / Time No Known Allergies Allergy Verified 07/30/25 09:31 Home Medications ?Medication ?Instructions ?Recorded ?Confirmed ?Last Taken ?Type dulaglutide 0.75 mg/0.5 mL 0.75 mg subcut QWEEK 01/17/24 08/13/25 05/13/25 History subcutaneous pen injector (Trulicity) metoprolol succinate 50 mg 50 mg PO DAILY 01/17/24 08/13/25 Unknown History tablet,extended release 24 hr aspirin 81 mg tablet,delayed 81 mg PO QAM 07/17/24 08/13/25 Unknown History release sacubitril 97 mg-valsartan 103 mg 1 tab PO BID 09/06/24 08/13/25 Unknown History tablet (Entresto) lancets 33 gauge (OneTouch Delica #100 ea 10/23/24 07/30/25 Unknown History Plus Lancet) Exam Height,Weight and Vital Signs: Height 5 ft 3 in Weight 62.596 kg Pertinent Lab Results Pertinent Lab Results: Laboratory Tests 06/20/25 09:48 WBC 4.8 RBC 4.47 L Hgb 12.4 L Hct 38.5 L Plt Count 180 Sodium 143 Potassium 5.3 H BUN 16 Creatinine 1.80 H Narrative Narrative: ECHO 07/11/25 Conclusions: - The left ventricular systolic function is moderately decreased. The calculated ejection fraction is 36% by biplane method. - The entire apex, the mid anterior, and mid inferoseptal segments are akinetic. Myocardial Perfusion Study 01/2025 Impression: 1. 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 No clear ischemia. 2. Gated LVEF is 41% during stress and 33% during rest. Correlate with echocardiogram. 3. Transient ischemic dilatation not present.. Assessment and Plan Final Anesthetic Review Family History of Problems with Anesthesia: No History of Problems with Anesthesia: No Documented by User: Dave Bolivar MD 08/25/25 07:42 [facility] Past Medical History Medical History GERD (gastroesophageal reflux disease) Depression CKD (chronic kidney disease) CAD (coronary artery disease) Ischemic cardiomyopathy NSTEMI (non-ST elevated myocardial infarction) Eosinophilic esophagitis Kidney calculi Acute HFrEF (heart failure with reduced ejection fraction) Diabetes HLD (hyperlipidemia) HTN (hypertension) Surgical History Surgical History History of esophagogastroduodenoscopy (EGD) (05/20/25) Hx of colonoscopy (05/20/25) S/P cardiac cath S/P cardiac catheterization History of cholecystectomy Hx of appendectomy Social History Social History Household Members: None Housing: Apartment Are you a primary daycare teacher to a significant other at home: No Do you presently have visiting nurse or other home services: Yes (daughter-[employer] OPERATOR) Patient Tobacco Use Status: Never used Tobacco Use of substances other than those prescribed or required for medical reasons: No Have you been hit, kicked, punched, or otherwise hurt by someone within the past year? If so, by whom?: No Spiritual Healthcare Practices: no [facility] Practices: no Cultural Healthcare Practices: no Are you DNR?: No Advance Directives on File: No Meds Allergies Allergy/AdvReac Type Severity Reaction Status Date / Time No Known Allergies Allergy Verified 07/30/25 09:31 Home Medications ?Medication ?Instructions ?Recorded ?Confirmed ?Last Taken ?Type dulaglutide 0.75 mg/0.5 mL 0.75 mg subcut QWEEK 01/17/24 08/13/25 05/13/25 History subcutaneous pen injector (Trulicity) metoprolol succinate 50 mg 50 mg PO DAILY 01/17/24 08/13/25 Unknown History tablet,extended release 24 hr aspirin 81 mg tablet,delayed 81 mg PO QAM 07/17/24 08/13/25 Unknown History release sacubitril 97 mg-valsartan 103 mg 1 tab PO BID 09/06/24 08/13/25 Unknown History tablet (Entresto) lancets 33 gauge (BrendaTouch Delica #100 ea 10/23/24 07/30/25 Unknown History Plus Lancet) Exam Exam Date and Time: 08/25/25 Airway Mallampati Class: II TM Dist: >3cm Neck ROM: Full Heart: rrr Lungs: ctab vesicular Assessment and Plan Assessment Anesthesia Assessment: Anesthesia Plan Discussed and Chart Reviewed Final Anesthetic Review NPO: Yes ASA Class: III Final Preanesthetic Review: No Changes in Pt Med Stat, Meds/Allgs Chart Reviewed, Consent Obtained/Reviewed and Anes Risks/Benef Reviewed Patient Risk: Intermediate Procedure Risk: Low Anesthetic Plan Anesthetic Plan: MAC: Disposition: Standard PACU
[2025-08-25 06:28] LABS: Glucose, Whole Blood 106 mg/dL (60-115)
[2025-08-25] MEDS: Lactated Ringers 1,000 ML 50 ML IVCONT (06:28)
[2025-08-25 06:29] VITALS: BP 168/79; PULSE 73; RESP 16; TEMP 36.5; O2SAT 99
--- NOTE | 2025-08-25 07:30 | MHC.SHP ---
Pre-Procedural Eval Section A - 24 Hr Update-Section A only Date of Service: 08/25/25 The patient has been examined within 24 hours of the surgical procedure. The History & Physical has been completed within 30 days and I have reviewed it.: Yes Section B - Complete if H&P > 30 days Chief Complaint: Sebaceous cyst Allergies: Allergies Allergy/AdvReac Type Severity Reaction Status Date / Time No Known Allergies Allergy Verified 07/30/25 09:31 Plan Diagnosis/Plan: Unchanged I have reviewed the history and physical and performed a pertinent physical examination on my patient. No changes have occurred unless specified. Time Spent With Patient Time: Total time managing care of this patient today _5___ minutes.
[2025-08-25 07:52] LABS: Anion Gap 11 (12-20); Carbon Dioxide 25 mmol/L (22-29); Chloride 114 mmol/L (96-108); Potassium 4.3 mmol/L (3.3-5.1); Sodium 146 mmol/L (135-145)
[2025-08-25 08:40] VITALS: BP 132/85; PULSE 67; RESP 10; TEMP 36.7; O2SAT 96
--- NOTE | 2025-08-25 08:51 | P.OP_ITS ---
Operative Note Operative Note Date of Service: 08/25/25 Narrative: Preoperative diagnosis left upper extremity lesion Postoperative diagnosis same Procedure performed excisional biopsy of left upper extremity lesion Surgeon: Mayur Law MD [employer] Production Machine Operator: [place] Angel Findings approximate 1 cm diameter excoriated lesion on the lateral aspect of the left proximal upper extremity Specimens lesion with superior margin marked with a single suture of silk Anesthesia conscious sedation with local infiltration Estimated blood loss minimal The patient is brought to the operating room and placed supine on the operating table. His arms legs are Christopher appropriately and Venodyne boots were cycled. Conscious sedation was then initiated in his left upper extremity was then prepped and draped in standard sterile fashion. Once this was done approximately 30 cc of Marcaine with epinephrine were infused the skin and soft tissue around the previously marked skin lesion on the lateral aspect of his proximal left upper extremity. A approximate 4 cm long by 1 cm wide elliptical incision was created with a long axis following Katia's lines of the skin. This is done to completely excise the lesion. Once the level of the subdermal fatty tissue layer had been reached we used cautery to come underneath the lesion removed the island of skin. There is no evidence of penetration of the margins by the lesion. Hemostasis was achieved with cautery. The superior aspect of the resected lesion was marked using a single 2-0 silk suture. The deep dermals were closed with interrupted 0 Polysorb on a UR 6 needle. Abbreviated subdermal running 0 6 Polysorb was also used to reapproximate the skin edges and then 4-0 Vicryl was used to finally closed the skin. The area was re-prepped and a sterile occlusive dressing was applied. The patient tolerated procedure well, was recovered from anesthesia and transported to the recovery room in good condition. Sponge instrument needle counts were correct in the case.
[2025-08-25 08:55] VITALS: BP 134/84; PULSE 67; RESP 12; O2SAT 96
[2025-08-25 09:15] VITALS: BP 143/71; PULSE 65; RESP 14; TEMP 36.7; O2SAT 97
== END 2025-08-25 09:55 | disposition home or self-care (01) ==
PROVIDERS: Nurse Practitioner; PCP Internal Medicine; Visit Provider Surgery
PROC: (CPT 11404; principal; 2025-08-25 07:30)
DX: L72.3 Sebaceous cyst (principal); I50.21 Acute systolic (congestive) heart failure; I11.0 Hypertensive heart disease with heart failure; I25.10 Atherosclerotic heart disease of native coronary artery without angina pectoris; Z95.5 Presence of coronary angioplasty implant and graft; I25.2 Old myocardial infarction; E78.5 Hyperlipidemia, unspecified; E11.9 Type 2 diabetes mellitus without complications; K20.0 Eosinophilic esophagitis; Z86.19 Personal history of other infectious and parasitic diseases; Z79.82 Long term (current) use of aspirin; Z79.84 Long term (current) use of oral hypoglycemic drugs; Z79.85 Long-term (current) use of injectable non-insulin antidiabetic drugs; Z79.899 Other long term (current) drug therapy; Z90.49 Acquired absence of other specified parts of digestive tract
CPT/HCPCS: 11404; 36415; 80051; 82947; 88304; J0131; J0690; J2003; J2405; J2704; J3010

== ENCOUNTER → 2025-08-25 05:54 | Outpatient (BNV) | payer OTHER, SELFPAY | PROVIDERS: PCP Internal Medicine; Visit Provider Surgery | DX: L72.3 Sebaceous cyst (principal) | CPT/HCPCS: 11106 ==